=== PATIENT | female | born 1950 | race Caucasian/White ===

== ENCOUNTER 2016-08-22 11:04 | Inpatient (IN) | payer OTHER, MEDICAID ==
[2016-08-22] MEDS ORDERED: NS 0.9% 1000 ML* 1,000 ML IV ONE (11:33)
[2016-08-22] MEDS ORDERED: Diltiazem IV* 5 MG/ML 5 ML VIAL (for loading dose/IV Push) (25 MG) IV SLOW PU ONE (11:35)
[2016-08-22] MEDS ORDERED: Diltiazem IV VIAL* 125 MG in D5W 100 ML BAG* 100 ML IV ONE (11:35)
[2016-08-22 11:45] LABS: Hematocrit 34 % (35-47); Hemoglobin 10.7 g/dl (12.0-16.0); Mean Corpuscular HGB Conc 32 g/dl (31-36); Mean Corpuscular Hemoglobin 29 pg (27-31); Mean Corpuscular Volume 90 fL (80-97); Mean Platelet Volume 9 um3 (7.4-10.4); Red Blood Count 3.72 10^6/ul (4.0-5.4); Red Cell Distribution Width 15 % (10.5-15); White Blood Count 12.6 10^3/ul (3.5-10.8)
--- NOTE | 2016-08-22 11:56 | RAD ---
INDICATION: Fatigue. COMPARISON: Comparison is made with a prior chest x-ray study from May 12, 2015. TECHNIQUE: A portable view of the chest was obtained. FINDINGS: The patient is status post anatomy. The heart appears mildly enlarged and unchanged. The lungs are underinflated. There is elevation of the left hemidiaphragm. The lungs appear grossly clear. No pleural effusion is seen. IMPRESSION: ELEVATED LEFT HEMIDIAPHRAGM, NO EVIDENCE FOR ACUTE FINDING.
[2016-08-22 11:57] LABS: Albumin 3.3 g/dL (3.2-5.2); BUN/Creatinine Ratio 21.3 (8-20); Calcium 8.5 mg/dL (8.6-10.3); EGFR African American 81.9 (>60); EGFR Non-African American 63.7 (>60); Magnesium 1.8 mg/dL (1.9-2.7); Potassium 4.4 mmol/L (3.5-5.0); Total Bilirubin 0.5 mg/dL (0.2-1.0); Total Protein 7.3 g/dL (6.4-8.9)
[2016-08-22 11:59] LABS: Troponin I 0.01 ng/mL (<0.04)
[2016-08-22 12:33] LABS: TSH (Thyroid Stimulating Horm) 1.06 mcIU/mL (0.34-5.60)
[2016-08-22] MEDS ORDERED: Phytonadione INJ (Adult)* 10 MG/ML 1 ML AMP SUBCUT ONE (12:39)
[2016-08-22] MEDS ORDERED: HYDROcodone/ACETAMIN 5-325 MG* 1 TAB PO PRN (13:33)
[2016-08-22] MEDS ORDERED: Diltiazem CD CAP* 240 MG PO ONE (13:40)
--- NOTE | 2016-08-22 14:02 | ED ---
Victor Hugo Love SooYoung, scribed for Dudley Hernandes MD on 08/22/16 at 1137 . GI/ HPI - HPI Summary HPI Summary: A 65 y/o F presents to ED with blood in her ostomy bag which she noticed a small amount last night, and saw a lot more this morning. Associated sx: racing heart beat this AM, epigastric abd pain, lower back pain, general malaise, lightheadedness and dizziness onset yesterday. She notes having some rhinorrhea due to her oxygen treatments, and she noticed blood in her sputum yesterday. - History of Current Complaint Chief Complaint: EDGIBleed Time Seen by Provider: 08/22/16 11:21 Stated Complaint: BLOOD IN COLOSTOMY BAG Hx Obtained From: Patient Onset/Duration: Started Hours Ago, Started Days Ago, Still Present Timing: Constant Severity: Moderate Pain Intensity: 6 - out of 10 Location of Pain: Diffuse - lower back, epigastric abd Associated Signs and Symptoms: Positive: Back Pain, Dizziness, Lightheadedness, Abdominal Pain, Other: - pos: general malaise - Additional Pertinent History Primary Care Physician: CARROLL - Allergy/Home Medications Allergies/Adverse Reactions: Allergies Allergy/AdvReac Type Severity Reaction Status Date / Time Shellfish Allergy Allergy Severe Hives Verified 08/22/16 12:33 Iodinated Contrast Media Allergy Intermediate Hives Verified 08/22/16 12:33 [IV CONTRAST DYE] Celecoxib [From Celebrex] Allergy Hives Verified 08/22/16 12:33 BEES Allergy Severe Rash Uncoded 08/22/16 12:33 Home Medications: Home Medications Docusate Sodium [Colace] 100 mg PO 08/22/16 [History] Ezetimibe TAB* [Zetia TAB*] 10 mg PO DAILY 08/22/16 [History Confirmed 08/22/16] Potassium Chlor TAB* [Klor Con ER TAB*] 20 meq PO BID 08/22/16 [History Confirmed 08/22/16] Pregabalin [Lyrica] 50 mg PO 08/22/16 [History] PMH/Surg Hx/FS Hx/Imm Hx Previously Healthy: No Endocrine/Hematology History: Reports: Hx Anticoagulant Therapy, Hx Thyroid Disease Denies: Hx Diabetes Cardiovascular History: Reports: Hx Cardiac Arrest, Hx Congestive Heart Failure , Hx Coronary Artery Disease, Hx Deep Vein Thrombosis, Hx Hypercholesterolemia, Hx Hypertension, Hx Peripheral Vascular Disease, Hx Valvular Heart Disease, Other Cardiovascular Problems/Disorders - CAD, DVT Denies: Hx Pacemaker/ICD Respiratory History: Reports: Hx Asthma, Hx Chronic Obstructive Pulmonary Disease (COPD), Hx Pneumonia, Hx Pulmonary Embolism, Hx Sleep Apnea, Other Respiratory Problems/Disorders - home o2 GI History: Reports: Hx Diverticulosis, Hx Gall Bladder Disease, Hx Gastroesophageal Reflux Disease, Hx Hiatal Hernia, Other GI Disorders - DIVERTICULITIS History: Reports: Hx Kidney Stones Denies: Hx Dialysis, Hx Renal Disease, Other Problems/Disorders Musculoskeletal History: Reports: Hx Arthritis - legs and shoulders, Hx Back Problems, Hx Bursitis, Hx Scoliosis, Other Musculoskeletal History - Left hip replacement Sensory History: Reports: Hx Contacts or Glasses Denies: Hx Deafness, Hx Hearing Aid Opthamlomology History: Reports: Hx Contacts or Glasses Neurological History: Denies: Hx Dementia, Hx Developmental Delay, Hx Headaches, Hx Migraine, Hx Nerve Disease, Hx Seizures, Hx Spinal Cord Injury, Hx Transient Ischemic Attacks (TIA), Other Neuro Impairments/Disorders Psychiatric History: Reports: Hx Anxiety, Hx Depression Denies: Hx Substance Abuse - Surgical History Surgery Procedure, Year, and Place: TUBAL LIGATION 1979, [facility] [place] , CHOLECYSTECTOMY [facility] [place], 2008, KIDNEY STONES REMOVED 1998, [facility] [place], TRIPLE BYPASS, HEART VALVE REPLACEMENT 2010, [facility], LEFT HIP REPLACED, 2009, [facility]. TONSILECTOMY A CHILD Hx Anesthesia Reactions: No - Immunization History Date of Tetanus Vaccine: Up to date Date of Influenza Vaccine: Fall 2011 Infectious Disease History: Reports: Hx Shingles Denies: Hx Hepatitis, Hx Human Immunodeficiency Virus (HIV), Traveled Outside the [place] in Last 30 Days - Family History Known Family History: Positive: Other - neg: anaesthesia reaction - Social History Occupation: Retired Lives: Alone Alcohol Use: Rare Hx Substance Use: No Substance Use Type: Reports: None Hx Tobacco Use: Yes Smoking Status (MU): Former Smoker Type: Cigarettes Have You Smoked in the Last Year: No Review of Systems Positive: Palpitations Positive: Abdominal Pain Positive: other - POS: BLOOD IN OSTOMY BAG Positive: Other - pos: lower back pain Neurological: Other - pos: dizziness/lightheadedness, general malaise All Other Systems Reviewed And Are Negative: Yes Physical Exam Triage Information Reviewed: Yes Vital Signs On Initial Exam: Initial Vitals Temp Pulse Resp BP Pulse Ox 97.8 F 120 20 98/79 98 08/22/16 11:07 08/22/16 11:07 08/22/16 11:07 08/22/16 11:07 08/22/16 11:07 Vital Signs Reviewed: Yes Appearance: Positive: Well-Appearing, No Pain Distress, Obese Skin: Positive: Warm, Skin Color Reflects Adequate Perfusion, Dry Head/Face: Positive: Normal Head/Face Inspection Eyes: Positive: Normal ENT: Positive: Normal ENT inspection Neck: Positive: Supple, Nontender Respiratory/Lung Sounds: Positive: Breath Sounds Present, Other - POS: UPPER AIRWAY SOUNDS Cardiovascular: Positive: IRR, Tachycardia Abdomen Description: Positive: Nontender, Soft, Other: - POS: BLOOD IN OSTOMY BAG Musculoskeletal: Positive: Edema Left - PITTING PEDAL EDEMA, Edema Right - PITTING PEDAL EDEMA Neurological: Positive: Normal Psychiatric: Positive: Normal, Affect/Mood Appropriate Diagnostics - Vital Signs Vital Signs Temp Pulse Resp BP Pulse Ox 08/22/16 11:07 97.8 F 120 20 98/79 98 - Laboratory Lab Results: Lab Results 08/22/16 08/22/16 08/22/16 Range/Units 11:28 11:28 11:28 WBC 12.6 H (3.5-10.8) 10^3/ul RBC 3.72 L (4.0-5.4) 10^6/ul Hgb 10.7 L (12.0-16.0) g/dl Hct 34 L (35-47) % MCV 90 (80-97) fL MCH 29 (27-31) pg MCHC 32 (31-36) g/dl RDW 15 (10.5-15) % Plt Count 189 (150-450) 10^3/ul MPV 9 (7.4-10.4) um3 Neut % (Auto) 75.6 (38-83) % Lymph % (Auto) 15.2 L (25-47) % [place] % (Auto) 6.2 (1-9) % Eos % (Auto) 2.0 (0-6) % Baso % (Auto) 1.0 (0-2) % Absolute Neuts (auto) 9.5 H (1.5-7.7) 10^3/ul Absolute Lymphs (auto) 1.9 (1.0-4.8) 10^3/ul Absolute Monos (auto) 0.8 (0-0.8) 10^3/ul Absolute Eos (auto) 0.3 (0-0.6) 10^3/ul Absolute Basos (auto) 0.1 (0-0.2) 10^3/ul Absolute Nucleated RBC 0 10^3/ul Nucleated RBC % 0 INR (Anticoag Therapy) 6.73 H* (0.89-1.11) Sodium 134 (133-145) mmol/L Potassium 4.4 (3.5-5.0) mmol/L Chloride 104 (101-111) mmol/L Carbon Dioxide 26 (22-32) mmol/L Anion Gap 4 (2-11) mmol/L BUN 19 (6-24) mg/dL Creatinine 0.89 (0.51-0.95) mg/dL Est GFR ( Amer) 81.9 (>60) Est GFR (Non-Af Amer) 63.7 (>60) BUN/Creatinine Ratio 21.3 H (8-20) Glucose 115 H (70-100) mg/dL Lactic Acid (0.5-2.0) mmol/L Calcium 8.5 L (8.6-10.3) mg/dL Magnesium 1.8 L (1.9-2.7) mg/dL Total Bilirubin 0.50 (0.2-1.0) mg/dL AST 14 (13-39) U/L ALT 17 (7-52) U/L Alkaline Phosphatase 70 (34-104) U/L Troponin I 0.01 (<0.04) ng/mL B-Natriuretic Peptide ( - 100) pg/mL Total Protein 7.3 (6.4-8.9) g/dL Albumin 3.3 (3.2-5.2) g/dL Globulin 4.0 (2-4) g/dL Albumin/Globulin Ratio 0.8 L (1-3) TSH 1.06 (0.34-5.60) mcIU/mL 08/22/16 08/22/16 Range/Units 11:28 11:28 WBC (3.5-10.8) 10^3/ul RBC (4.0-5.4) 10^6/ul Hgb (12.0-16.0) g/dl Hct (35-47) % MCV (80-97) fL MCH (27-31) pg MCHC (31-36) g/dl RDW (10.5-15) % Plt Count (150-450) 10^3/ul MPV (7.4-10.4) um3 Neut % (Auto) (38-83) % Lymph % (Auto) (25-47) % [place] % (Auto) (1-9) % Eos % (Auto) (0-6) % Baso % (Auto) (0-2) % Absolute Neuts (auto) (1.5-7.7) 10^3/ul Absolute Lymphs (auto) (1.0-4.8) 10^3/ul Absolute Monos (auto) (0-0.8) 10^3/ul Absolute Eos (auto) (0-0.6) 10^3/ul Absolute Basos (auto) (0-0.2) 10^3/ul Absolute Nucleated RBC 10^3/ul Nucleated RBC % INR (Anticoag Therapy) (0.89-1.11) Sodium (133-145) mmol/L Potassium (3.5-5.0) mmol/L Chloride (101-111) mmol/L Carbon Dioxide (22-32) mmol/L Anion Gap (2-11) mmol/L BUN (6-24) mg/dL Creatinine (0.51-0.95) mg/dL Est GFR ( Amer) (>60) Est GFR (Non-Af Amer) (>60) BUN/Creatinine Ratio (8-20) Glucose (70-100) mg/dL Lactic Acid 1.0 (0.5-2.0) mmol/L Calcium (8.6-10.3) mg/dL Magnesium (1.9-2.7) mg/dL Total Bilirubin (0.2-1.0) mg/dL AST (13-39) U/L ALT (7-52) U/L Alkaline Phosphatase (34-104) U/L Troponin I (<0.04) ng/mL B-Natriuretic Peptide 319 H ( - 100) pg/mL Total Protein (6.4-8.9) g/dL Albumin (3.2-5.2) g/dL Globulin (2-4) g/dL Albumin/Globulin Ratio (1-3) TSH (0.34-5.60) mcIU/mL Result Diagrams: 08/22/16 11:28 08/22/16 11:28 Lab Statement: Any lab studies that have been ordered have been reviewed, and results considered in the medical decision making process. - Radiology CXR Xray Interpretation: No Acute Changes - IMPRESSION: Elevated L hemidiaphragm. No evidence for acute finding. Radiology Interpretation Completed By: Radiologist - EKG 1 EKG Rhythm: Atrial Fibrillation - with RVR Ectopy: PVCs GIGU Course/Dx - Course Assessment/Plan: Ms. Ziegler came in C/O lightheaded, fast heart rate and having noticed blood in her ostomy bag. Her INR was high, she had dropped her H /H a bit and was found to be in A-Fib with a rapid response. She was slowed with cardizem when fluids alone did not work. She was given Vit K and the hospitalists were contacted for admission. - Diagnoses Provider Diagnoses: Atrial fibrillation with rapid ventricular response, GI bleed - Physician Notifications Discussed Care Of Patient With: Dr. Ridley, hospitalist Time Discussed With Above Provider: 12:38 Instructed by Provider To: MD Will See In ED - Critical Care Time Critical Care Time: 30-74 min Discharge - Discharge Plan Condition: Stable Disposition: ADMITTED TO [facility] documentation as recorded by the Victor Hugo nowak SooYoung accurately reflects the service I personally performed and the decisions made by me, Dudley Hernandes MD.
[2016-08-22] MEDS ORDERED: Magnesium Sulfate 2 GM IV* 2 GM/50 ML BAG IVPB ONE (14:37)
[2016-08-22] MEDS ORDERED: NS 0.9% 1000 ML* 1,000 ML IV SCH (14:45)
[2016-08-22] MEDS: Pantoprazole IV* 40 MG IV SCH (15:01)
[2016-08-22 15:29] LABS: Comments Flag Yes; Hematocrit 31 % (35-47); Hemoglobin 9.7 g/dl (12.0-16.0)
[2016-08-22] MEDS: Digoxin TAB* 0.25 MG PO SCH (16:55)
[2016-08-22] MEDS ORDERED: Metoprolol Tartrate TAB* 25 MG PO ONE (19:15)
[2016-08-22] MEDS: Mometasone 220 MCG MDI INH SCH (19:30)
[2016-08-22] MEDS ORDERED: Metoprolol Tartrate TAB* 50 mg PO SCH (21:00)
[2016-08-22 21:32] LABS: Hematocrit 30 % (35-47); Hemoglobin 9.3 g/dl (12.0-16.0)
[2016-08-22] MEDS: traZODone TAB* 50 MG TAB PO SCH (22:02)
--- NOTE | 2016-08-22 23:04 | HP ---
HISTORY AND PHYSICAL: DATE OF ADMISSION: 08/22/16 PROVIDER: Amanda Lara NP. ATTENDING PHYSICIAN: Dr. Schafer* (report dictated by Amanda Lara NP). PRIMARY CARE PROVIDER: Dr. Simons. CHIEF COMPLAINT: Blood in colostomy bag. HISTORY OF PRESENT ILLNESS: Ms. Ziegler is a 65-year-old female with a complex past medical history with paroxysmal atrial fibrillation and history of pulmonary embolism, on Coumadin therapy and is status post colostomy approximately 2 years ago for bowel obstruction, who presented to the emergency department today with report of noted blood in her colostomy bag this morning. On admission, her labs reveal an INR of 6.73 and a hemoglobin and hematocrit of 10.7/34. Ms. Ziegler reports that yesterday she noted she had streaks of blood in her stool in her colotomy bag, then this morning she awoke and noted her colostomy bag had leaked and there was "blood all over" noted as dark red blood. She reports that she cleaned herself up and placed a new bag on and called the ambulance who brought her to the emergency department for further evaluation. She reports that she has had some dizziness today when changing positions, mostly to a standing position. She denies any syncopal episodes. She denies abdominal pain. No nausea or vomiting. She does report she felt that she had a "stomachache" yesterday, but that has resolved. No recent illnesses. She denies any fevers or chills. The patient denies any changes in her diet and reports that she has been taking her medications as prescribed. As well, on presentation, she presents with rapid AFib with a heart rate of 149. She reports that she did not take her prescribed medications this morning prior to coming to the emergency department. On evaluation, the patient reports that she is "feeling pretty well," reporting only some mild dizziness when standing. PAST MEDICAL HISTORY: 1. Paroxysmal atrial fibrillation. 2. History of pulmonary embolism. 3. Atrial fibrillation, on Coumadin therapy. 4. Status post resection with colostomy secondary to bowel obstruction in April of 2015. 5. Status post porcine aortic valve replacement. 6. Coronary artery bypass grafting. 7. Hypothyroidism. 8. Hyperlipidemia. 9. Hypertension. 10. COPD, on home oxygen of 2.5 L 24x7. 11. Diastolic congestive heart failure with a preserved EF. 12. Peripheral vascular disease. 13. Morbid obesity. 14. GERD. 15. Dyslipidemia. 16. Status post cholecystectomy. 17. Status post ventral hernia repair. 18. Status post appendectomy. 19. Tubal ligation. HOME MEDICATIONS: 1. Zetia 10 mg p.o. daily. 2. Potassium chloride 20 mEq p.o. b.i.d. 3. Cardizem 240 mg p.o. daily. 4. Aspirin EC low dose 81 mg p.o. daily. 5. Albuterol 2 puffs INH q.4h. p.r.n. 6. Xanax 0.25 mg p.o. q.6h. p.r.n. 7. [place] 5/325 mg one tab p.o. q.6h. p.r.n. 8. Flovent HFA 44 mcg 2 puffs INH b.i.d. 9. EpiPen 0.3 mg IM, see instructions p.r.n. 10. Digoxin 250 mcg p.o. at 1700. 11. Lipitor 80 mg p.o. daily. 12. Metoprolol tartrate 50 mg p.o. b.i.d. 13. Lisinopril 2.5 mg p.o. daily. 14. Synthroid 200 mcg p.o. daily. 15. Torsemide 240 mg p.o. daily. 16. Spiriva one cap INH daily. 17. Zoloft 200 mg p.o. daily. 18. Omeprazole 40 mg p.o. daily. 19. Trazodone 50 mg p.o. at bedtime. 20. Coumadin 6 mg p.o. at 1700. 21. Lyrica 50 mg p.o. daily. ALLERGIES: 1. SHELLFISH - hives. 2. IV CONTRAST - hives. 3. CELEBREX - hives. 4. BEES - rash. FAMILY HISTORY: Mother had a history of coronary artery disease. The patient' s brother secondary to an LA at age 27. She reports her son has type 2 diabetes. SOCIAL HISTORY: The patient is a former smoker reporting she quit 2 years ago, rare alcohol use. Denies recreational drug use. The patient lives with her son , Nehemiah, who is her healthcare proxy. The patient has 5 grown children, one . REVIEW OF SYSTEMS: A 14-point review of systems was performed. All the pertinent positives and negatives are mentioned in the history of present illness. All the remaining systems are negative. PHYSICAL EXAMINATION GENERAL APPEARANCE: Alert and oriented x3, chronically ill-appearing female, obese, in no acute distress. VITAL SIGNS: Temperature 97.8, heart rate 98, respirations 16, O2 sat 98% on 2 L nasal cannula, blood pressure 111/70. HEENT: Head is normocephalic, atraumatic. Pupils are equal and reactive to light. Oropharynx is clear. Moist mucous membranes. Good dentition. NECK: Supple. RESPIRATORY: Clear to auscultation bilaterally. Good aeration throughout. No respiratory distress. No accessory muscle use. CARDIAC: Irregularly irregular. No murmur noted. ABDOMEN: Obese, distended, soft, nontender. Normal bowel sounds x4. There is noted a left lower quad colostomy with noted red and dark red fluid noted to be blood. Small amounts of stool noted in bag, mostly noted to be blood, approximately 50 to 75 mL noted. Stoma appears pink. EXTREMITIES: Trace lower extremity edema to bilateral feet. MUSCULOSKELETAL: No clubbing or cyanosis noted. Full range of motion in all extremities. Strength is 5/5 throughout. NEUROLOGIC: Cranial nerves II through XII are intact. Moves all extremities equally. Sensation in the lower extremities intact to light touch. SKIN: No rashes, lesions or open wounds noted. PSYCH: Alert and oriented x3, appropriate to situation. LABORATORY DATA AND DIAGNOSTIC STUDIES: Sodium 134, potassium 4.4, chloride 104, CO2 26, anion gap 4, BUN 19, creatinine 0.89, glucose 115, lactic acid 1.0 , calcium 8.5, magnesium 1.8, total bilirubin 0.50, AST 14, ALT 17, alkaline phosphatase 78. Troponin 0.01. BNP is 319. Total protein is 7.3, albumin 3.3, TSH 1.06, INR 6.73. WBC is 12.6, RBC 3.72, Hgb 10.7, HCT 34, MCV 90, MCH 29, MCHC 32, RDW 15, platelet count 189. Chest X-ray: Impression: Elevated left hemidiaphragm, no evidence for acute finding. EKG: Atrial fibrillation with a rate of 127. ASSESSMENT AND PLAN: Ms. Ziegler is a 65-year-old female with a complex past medical history including paroxysmal atrial fibrillation, history of pulmonary embolism, who is currently anticoagulated with Coumadin therapy, who presents with report of noted blood in her colostomy, noted to have an INR of 6.7. 1. Gastrointestinal bleed. The patient is stable. It appears her baseline hemoglobin is around 12 or 13, and today on evaluation it is 10.7. We will check another hemoglobin now and trend H and H's. Protonix 40 mg IV q. 24h. 2. Large-bore IVs. Obtain orthostatic vital signs. The patient received a liter of normal saline in the emergency department. We will monitor colostomy output strictly. The patient was given 5 mg of vitamin K in the emergency department. We will recheck INR this evening and in the morning. I spoke with copy chief, Dr. Greco, who will consult on the patient at this time. The plan will be to admit the patient, monitor closely, reverse the INR and see if the patient stops bleeding. I am not sure at this point if she would require scoping at this time unless she became unstable. I also spoke with surgeon, Dr. Jackson, who is the patient's general surgeon, who is aware of the patient being hospitalized. She does not require a surgical consult at this time, but if she would become stable, I will contact Dr. Jackson. 3. Atrial fibrillation with rapid ventricular response. The patient was started on a Cardizem drip in the emergency department. She currently has a heart rate between 90 and 110. Plan to restart the patient's home medications as she did not take these this morning and turn off the Cardizem drip. Continue Cardizem, metoprolol and digoxin with hold parameters. 4. Hypothyroidism. TSH within normal limits. Continue Synthroid. 5. History of pulmonary embolism, unclear what year she was diagnosed, possibly 2010. We do have a CTA from 2013 that shows no evidence of pulmonary embolism. We will have to obtain records from PCP. 6. Chronic obstructive pulmonary disease, stable, not an acute issue. The patient continues on her home oxygen requirements of 2.5 L. Continue home inhalers. 7. Coronary artery disease, asymptomatic. We will plan to hold the patient's aspirin in the setting of acute GI bleed. We will continue beta-bao and statin. 8. Hypertension, stable. We will hold lisinopril in the setting of GI bleed, also continuing rate controlling agents to prevent dropping the patient's blood pressure. Plan to hold torsemide. 9. History of diastolic congestive heart failure with an ejection fraction of 50% to 55% in 2015. She is not in acute exacerbation. Hold torsemide at this time. 10. Depression/anxiety, stable. Continue Zoloft. 11. Chronic pain. The patient reports chronic back pain. Continue [place] p.r.n. 12. History of aortic stenosis, status post bioprosthetic aortic valve. 13. DVT prophylaxis. SCDs in the setting of GI bleed. 14. Code status. Full code. The patient's son, Nehemiah, is the healthcare proxy. TIME SPENT: Approximately 75 minutes was spent on this admission. This case was discussed with attending physician, Dr. Schafer, who agrees with the plan of care. AMANDA LARA NP CC: Dr. Simons* [id number]/CPS #: [id number] SERENA
[2016-08-23 02:23] LABS: Hematocrit 29 % (35-47); Hemoglobin 8.9 g/dl (12.0-16.0)
[2016-08-23] MEDS: Levothyroxine TAB* 100 MCG TAB PO SCH (05:25)
[2016-08-23 06:02] LABS: Hematocrit 28 % (35-47); Hemoglobin 9.1 g/dl (12.0-16.0); Mean Corpuscular HGB Conc 32 g/dl (31-36); Mean Corpuscular Hemoglobin 29 pg (27-31); Mean Corpuscular Volume 91 fL (80-97); Mean Platelet Volume 9 um3 (7.4-10.4); Red Blood Count 3.12 10^6/ul (4.0-5.4); Red Cell Distribution Width 15 % (10.5-15); White Blood Count 10.3 10^3/ul (3.5-10.8)
[2016-08-23 06:16] LABS: BUN/Creatinine Ratio 19.7 (8-20); Calcium 7.9 mg/dL (8.6-10.3); EGFR African American 106.3 (>60); EGFR Non-African American 82.6 (>60); Magnesium 2.1 mg/dL (1.9-2.7); Potassium 4.2 mmol/L (3.5-5.0)
--- NOTE | 2016-08-23 07:14 | PN ---
Subjective Date of Service: 08/23/16 Interval History: pt reports she feels "much better today". Reports less blood noted from colostomy this afternoon but did note blood upon waking - reports dizziness has resolved. Objective Active Medications: Hydrocodone Bitart/Acetaminophen ([place] 5-325 Tab*) 1 tab PO Q6H PRN PRN Reason: PAIN Atorvastatin Calcium (Lipitor*) 80 mg PO DAILY [facility] Device (Tiotropium Inhaler Device*) 0 each .SEE ORDER ONCE ONE Stop: 08/23/16 09:01 Digoxin (Lanoxin Tab*) 0.25 mg PO 1700 [facility] Last Admin: 08/22/16 16:55 Dose: 0.25 mg Diltiazem HCl (Cardizem Cd Cap*) 240 mg PO DAILY [facility] Ezetimibe (Zetia Tab*) 10 mg PO DAILY [facility] Levothyroxine Sodium (Synthroid Tab*) 200 mcg PO DAILY@0600 [facility] Last Admin: 08/23/16 05:25 Dose: 200 mcg Metoprolol Tartrate (Lopressor Tab*) 50 mg PO Q12HR [facility] Last Admin: 08/22/16 22:01 Dose: 50 mg Mometasone Furoate (Asmanex 220 Mcg Mdi *) 1 puff INH BEDTIME [facility] Last Admin: 08/22/16 19:30 Dose: 1 puff Pantoprazole Sodium (Protonix Iv*) 40 mg IV Q24H [facility] Last Admin: 08/22/16 15:01 Dose: 40 mg Sertraline HCl (Zoloft*) 200 mg PO DAILY [facility] Tiotropium [place] (Spiriva Cap.Inh*) 1 cap INH DAILY [facility] Trazodone HCl (Desyrel Tab*) 50 mg PO BEDTIME [facility] Last Admin: 08/22/16 22:02 Dose: 50 mg Vital Signs 08/22/16 08/22/16 08/22/16 16:33 16:34 16:35 Temperature Pulse Rate Respiratory Rate Blood Pressure 103/84 121/77 134/105 (mmHg) O2 Sat by Pulse Oximetry 08/22/16 08/22/16 08/22/16 16:55 19:33 20:07 Temperature 97.5 F Pulse Rate 100 69 82 Respiratory 16 16 Rate Blood Pressure 132/65 (mmHg) O2 Sat by Pulse 98 100 Oximetry 08/23/16 08/23/16 00:03 03:18 Temperature 97.6 F 97.3 F Pulse Rate 57 70 Respiratory 16 16 Rate Blood Pressure 115/75 106/54 (mmHg) O2 Sat by Pulse 100 100 Oximetry Oxygen Devices in Use Now: Nasal Cannula - 2 1/2 L NC Appearance: 65 yo female sitting up in bed A+O x3 in NAD. Eyes: No Scleral Icterus, PERRLA Ears/Nose/Mouth/Throat: NL Teeth, Lips, Gums Neck: NL Appearance and Movements; NL JVP Respiratory: Symmetrical Chest Expansion and Respiratory Effort, Clear to Auscultation Cardiovascular: NL Sounds; No Murmurs; No JVD, - - irregularly irregular, 1+ LE edema Abdominal: NL Sounds; No Tenderness; No Distention, - Extremities: No Clubbing, Cyanosis Skin: No Nodules or Sclerosis Neurological: Alert and Oriented x 3, NL Sensation, NL Muscle Strength and Tone Lines/Tubes/Other Access: Clean, Dry and Intact Peripheral IV Nutrition: Taking PO's Result Diagrams: 08/23/16 12:10 08/23/16 05:33 Additional Lab and Data: Lab Results 08/22/16 08/22/16 08/22/16 Range/Units 11:28 11:28 11:28 WBC 12.6 H (3.5-10.8) 10^3/ul RBC 3.72 L (4.0-5.4) 10^6/ul Hgb 10.7 L (12.0-16.0) g/dl Hct 34 L (35-47) % MCV 90 (80-97) fL MCH 29 (27-31) pg MCHC 32 (31-36) g/dl RDW 15 (10.5-15) % Plt Count 189 (150-450) 10^3/ul MPV 9 (7.4-10.4) um3 Neut % (Auto) 75.6 (38-83) % Lymph % (Auto) 15.2 L (25-47) % [place] % (Auto) 6.2 (1-9) % Eos % (Auto) 2.0 (0-6) % Baso % (Auto) 1.0 (0-2) % Absolute Neuts (auto) 9.5 H (1.5-7.7) 10^3/ul Absolute Lymphs (auto) 1.9 (1.0-4.8) 10^3/ul Absolute Monos (auto) 0.8 (0-0.8) 10^3/ul Absolute Eos (auto) 0.3 (0-0.6) 10^3/ul Absolute Basos (auto) 0.1 (0-0.2) 10^3/ul Absolute Nucleated RBC 0 10^3/ul Nucleated RBC % 0 INR (Anticoag Therapy) 6.73 H* (0.89-1.11) Sodium 134 (133-145) mmol/L Potassium 4.4 (3.5-5.0) mmol/L Chloride 104 (101-111) mmol/L Carbon Dioxide 26 (22-32) mmol/L Anion Gap 4 (2-11) mmol/L BUN 19 (6-24) mg/dL Creatinine 0.89 (0.51-0.95) mg/dL Est GFR ( Amer) 81.9 (>60) Est GFR (Non-Af Amer) 63.7 (>60) BUN/Creatinine Ratio 21.3 H (8-20) Glucose 115 H (70-100) mg/dL Lactic Acid (0.5-2.0) mmol/L Calcium 8.5 L (8.6-10.3) mg/dL Magnesium 1.8 L (1.9-2.7) mg/dL Total Bilirubin 0.50 (0.2-1.0) mg/dL AST 14 (13-39) U/L ALT 17 (7-52) U/L Alkaline Phosphatase 70 (34-104) U/L Troponin I 0.01 (<0.04) ng/mL B-Natriuretic Peptide ( - 100) pg/mL Total Protein 7.3 (6.4-8.9) g/dL Albumin 3.3 (3.2-5.2) g/dL Globulin 4.0 (2-4) g/dL Albumin/Globulin Ratio 0.8 L (1-3) TSH 1.06 (0.34-5.60) mcIU/mL 08/22/16 08/22/16 Range/Units 11:28 11:28 WBC (3.5-10.8) 10^3/ul RBC (4.0-5.4) 10^6/ul Hgb (12.0-16.0) g/dl Hct (35-47) % MCV (80-97) fL MCH (27-31) pg MCHC (31-36) g/dl RDW (10.5-15) % Plt Count (150-450) 10^3/ul MPV (7.4-10.4) um3 Neut % (Auto) (38-83) % Lymph % (Auto) (25-47) % [place] % (Auto) (1-9) % Eos % (Auto) (0-6) % Baso % (Auto) (0-2) % Absolute Neuts (auto) (1.5-7.7) 10^3/ul Absolute Lymphs (auto) (1.0-4.8) 10^3/ul Absolute Monos (auto) (0-0.8) 10^3/ul Absolute Eos (auto) (0-0.6) 10^3/ul Absolute Basos (auto) (0-0.2) 10^3/ul Absolute Nucleated RBC 10^3/ul Nucleated RBC % INR (Anticoag Therapy) (0.89-1.11) Sodium (133-145) mmol/L Potassium (3.5-5.0) mmol/L Chloride (101-111) mmol/L Carbon Dioxide (22-32) mmol/L Anion Gap (2-11) mmol/L BUN (6-24) mg/dL Creatinine (0.51-0.95) mg/dL Est GFR ( Amer) (>60) Est GFR (Non-Af Amer) (>60) BUN/Creatinine Ratio (8-20) Glucose (70-100) mg/dL Lactic Acid 1.0 (0.5-2.0) mmol/L Calcium (8.6-10.3) mg/dL Magnesium (1.9-2.7) mg/dL Total Bilirubin (0.2-1.0) mg/dL AST (13-39) U/L ALT (7-52) U/L Alkaline Phosphatase (34-104) U/L Troponin I (<0.04) ng/mL B-Natriuretic Peptide 319 H ( - 100) pg/mL Total Protein (6.4-8.9) g/dL Albumin (3.2-5.2) g/dL Globulin (2-4) g/dL Albumin/Globulin Ratio (1-3) TSH (0.34-5.60) mcIU/mL Microbiology and Other Data: Microbiology 08/22/16 14:30 Nasal Screen MRSA (PCR)([facility]) - Final Nasal Mrsa Positive Assess/Plan/Problems-Billing Assessment: 65 yo female with PMH paroxysmal afib on coumadin, hx of distant PE who present with c/o blood per colostomy who was found to have an INR 6.7. - Patient Problems (1) GI bleed Comment: - appears lower GI bleed in the setting of supratherapuetic INR. HH stable. Plan to hold coumadin for a few weeks and PCP will need to address restarting. - GI to consult. - continue protonix (2) Atrial fibrillation with RVR Comment: - now rate controlled. - Continue Cardizem, Digoxin and metoprolol - Hold coumadin (3) Subtherapeutic anticoagulation SNOMED Code(s): 29900218 Comment: INR 3, down from 6.7 (4) Chronic pain Comment: continue Paron (5) COPD (chronic obstructive pulmonary disease) Comment: - Stable. - Continue Spiriva, Dulera and oxygen (on home 2L [place]). (6) Diastolic CHF Comment: - asymptomatic. (7) HTN (hypertension) Comment: SBP remains 120s, continue cardizem and metoprolol. (8) Hypothyroidism (acquired) Comment: Continue levothyroxine. (9) S/P aortic valve replacement with bioprosthetic valve Comment: - porcine valve (10) Hx of pulmonary embolus Comment: - distant hx, per pt she is unclear of her hx of PE but does report very distant hx of DVT- looking back at CTA 2010 no noted PE (11) DVT prophylaxis Comment: SCDs (12) Full code status Comment: Full Code. Status and Disposition: inpatient with GI bleed. Home when medically stable most likely tomorrow
[2016-08-23] MEDS ORDERED: Omeprazole CAP* 20 MG PO SCH (07:30)
[2016-08-23] MEDS ORDERED: Spiriva Inhaler DEVICE* 1 EACH DEVICE ONE (09:00)
[2016-08-23] MEDS: Tiotropium CAP.INH* CAP.INH/18 MCG INH SCH (10:06)
[2016-08-23] MEDS: Ezetimibe TAB* 10 MG PO SCH (10:07)
[2016-08-23] MEDS: Metoprolol Tartrate TAB* 50 mg PO SCH ×2 (10:07→20:49)
[2016-08-23] MEDS: Atorvastatin* 80 MG TAB PO SCH (10:07)
[2016-08-23] MEDS: Sertraline* 100 MG TAB PO SCH (10:07)
[2016-08-23] MEDS: Diltiazem CD CAP* 240 MG PO SCH (10:38)
[2016-08-23 12:23] LABS: Hematocrit 29 % (35-47); Hemoglobin 9.2 g/dl (12.0-16.0)
[2016-08-23] MEDS: Pantoprazole IV* 40 MG IV SCH (13:35)
--- NOTE | 2016-08-23 14:40 | CONS ---
CONSULTATION REPORT: DATE OF CONSULT: 08/23/16 REQUESTING PROVIDER: Melinda Garrison NP INDICATION: GI bleeding. NARRATIVE: Ms. Ziegler is a pleasant 65-year-old female with a history of atrial fibrillation; PE; aortic valve replacement; coronary artery disease; hypertension; hyperlipidemia; hypothyroid; COPD, requiring home O2; congestive heart failure; peripheral vascular disease; obesity; GERD, who presents with abdominal pain and blood per ostomy yesterday. The patient states she had a large amount of dark stool. She did have a stomach ache in the hours beforehand. She has never seen this amount of dark blood in her ostomy before. She currently is feeling better. She was admitted to the hospital partly due to an INR of 6.73. Her bleeding has definitely decreased. She is feeling fine. She is hungry. She has a history of some sort of colonic reason to have a colostomy in the past. She had a colonoscopy in June 2015 after a diverting colostomy secondary to colonic obstruction. The official reason for the obstruction to the best of my knowledge was never found. She had a colonoscopy in June of last year, which showed narrowed, contorted spots of the distal colon, no diverticulosis, ileocecal polyps in mid to proximal right colon, erythema with chronic irritation. Again, she is feeling much improved at this time. PAST MEDICAL HISTORY: Please see the HPI. PAST SURGICAL HISTORY: Includes cholecystectomy, hernia repair, appendectomy, colostomy. MEDICATIONS: Upon admission include: 1. Zetia. 2. Potassium. 3. Cardizem. 4. Aspirin. 5. Albuterol. 6. Xanax. 7. [place]. 8. Flovent. 9. Digoxin. 10. Lipitor. 11. Metoprolol. 12. Lisinopril. 13. Synthroid. 14. Coumadin. 15. Torsemide. 16. Spiriva. 17. Zoloft. 18. Omeprazole. 19. Trazodone. 20. Lyrica. ALLERGIES: To BEES, CELEBREX, IV CONTRAST, and SHELLFISH. FAMILY HISTORY: Coronary artery disease, diabetes. SOCIAL HISTORY: She quit tobacco a couple of years ago. No IV drugs. Rare alcohol. REVIEW OF SYSTEMS: Twelve systems were reviewed, other than that mentioned in the HPI were unremarkable. PHYSICAL EXAM: Temperature is 97.6, blood pressure is 102/67, pulse is 69. General: Well-appearing female, no apparent distress, alert and oriented, pleasant, fluent. HEENT: Mucous membranes are moist without lesions, ulcers, or exudate. Neck is supple. Trachea is midline. Head is normocephalic, atraumatic. Heart: Irregular rate and rhythm. No rubs or gallops. Lungs: Clear to auscultation bilaterally. No wheezes, rales, or rhonchi. Abdomen is obese. Positive bowel sounds. Soft. She does have a colostomy in the left upper quadrant. No rebound. No guarding. Skin is warm and dry. Musculoskeletal: No CVA or spinal tenderness to palpation. LABORATORY DATA: Of note, hemoglobin is stable at 9.1; it was 8.9 and 9.3 earlier. INR is down to 3.01 from the peak of 6.73. BUN is 14, creatinine is 0.71. ASSESSMENT AND PLAN: This is a 65-year-old female with colostomy secondary to obstructing colon area with blood per ostomy likely. The bleeding was worsened by INR of 6.7. I do not have a good explanation for the initial bleeding at this point. There is no evidence of diverticulosis on her previous colonoscopy. I do wonder if she has an ischemic episode, she did have some abdominal pain prior to this happening. At this point, she is doing better, the blood has decreased. Her hemoglobin has stabilized. I would recommend us continuing to follow along very closely. I do not think she needs a colonoscopy right now. I am going to put her on a regular diet. She needs her INR controlled, and potentially if she does well, she can go home tomorrow. CC: Dr. Simons* [id number]/[facility] #: [id number] [facility] SYSTEMBrendan
--- NOTE | 2016-08-23 15:11 | RAD ---
INDICATION: Pain and swelling. COMPARISON: May 12, 2015 TECHNIQUE: Duplex interrogation of the Lowerextremity was performed. FINDINGS: Deep veins: The common femoral, great saphenous, profunda femoris, proximal, mid, and distal deep femoral, popliteal, posterior tibial, and peroneal veins are patent. There is normal compressibility, augmentation, and phasic flow. Superficial veins: There are no findings of superficial thrombophlebitis. Popliteal fossa:There is no evidence of a popliteal cyst. Soft tissues:There are no soft tissue abnormalities. IMPRESSION: Normal examination. No evidence of deep venous thrombosis
[2016-08-23] MEDS: Digoxin TAB* 0.25 MG PO SCH (16:48)
[2016-08-23] MEDS: traZODone TAB* 50 MG TAB PO SCH (20:49)
[2016-08-23] MEDS: Mometasone 220 MCG MDI INH SCH (21:04)
[2016-08-24 04:52] LABS: Hematocrit 27 % (35-47); Hemoglobin 8.8 g/dl (12.0-16.0); Mean Corpuscular HGB Conc 32 g/dl (31-36); Mean Corpuscular Hemoglobin 29 pg (27-31); Mean Corpuscular Volume 91 fL (80-97); Mean Platelet Volume 9 um3 (7.4-10.4); Red Blood Count 3.01 10^6/ul (4.0-5.4); Red Cell Distribution Width 15 % (10.5-15); White Blood Count 11.8 10^3/ul (3.5-10.8)
[2016-08-24 05:07] LABS: BUN/Creatinine Ratio 19.5 (8-20); Calcium 8.1 mg/dL (8.6-10.3); Potassium 4.2 mmol/L (3.5-5.0)
[2016-08-24] MEDS: Levothyroxine TAB* 100 MCG TAB PO SCH (05:23)
[2016-08-24 07:51] VITALS: BP 103/60
[2016-08-24] MEDS: Tiotropium CAP.INH* CAP.INH/18 MCG INH SCH (09:21)
[2016-08-24] MEDS: Metoprolol Tartrate TAB* 50 mg PO SCH (09:36)
[2016-08-24] MEDS: Ezetimibe TAB* 10 MG PO SCH (09:36)
[2016-08-24] MEDS: Diltiazem CD CAP* 240 MG PO SCH (09:36)
[2016-08-24] MEDS: Atorvastatin* 80 MG TAB PO SCH (09:36)
[2016-08-24] MEDS: Sertraline* 100 MG TAB PO SCH (09:36)
--- NOTE | 2016-08-24 10:40 | DCNOTE ---
Subjective Date of Service: 08/24/16 Interval History: Pt reports no further blood noted in colostomy bag and stool has returned to brown in color with her normal consistency of pasty/loose stool. Denies abdominal pain. No dizziness. Denies SOB or CP. Would like to go home. Objective Active Medications: Hydrocodone Bitart/Acetaminophen ([place] 5-325 Tab*) 1 tab PO Q6H PRN PRN Reason: PAIN Last Admin: 08/24/16 05:23 Dose: 1 tab Atorvastatin Calcium (Lipitor*) 80 mg PO DAILY [facility] Last Admin: 08/24/16 09:36 Dose: 80 mg Digoxin (Lanoxin Tab*) 0.25 mg PO 1700 [facility] Last Admin: 08/23/16 16:48 Dose: 0.25 mg Diltiazem HCl (Cardizem Cd Cap*) 240 mg PO DAILY [facility] Last Admin: 08/24/16 09:36 Dose: 240 mg Ezetimibe (Zetia Tab*) 10 mg PO DAILY [facility] Last Admin: 08/24/16 09:36 Dose: 10 mg Levothyroxine Sodium (Synthroid Tab*) 200 mcg PO DAILY@0600 [facility] Last Admin: 08/24/16 05:23 Dose: 200 mcg Metoprolol Tartrate (Lopressor Tab*) 50 mg PO BID [facility] Last Admin: 08/24/16 09:36 Dose: 50 mg Mometasone Furoate (Asmanex 220 Mcg Mdi *) 1 puff INH BEDTIME [facility] Last Admin: 08/23/16 21:04 Dose: 1 puff Pantoprazole Sodium (Protonix Iv*) 40 mg IV Q24H [facility] Last Admin: 08/23/16 13:35 Dose: 40 mg Sertraline HCl (Zoloft*) 200 mg PO DAILY [facility] Last Admin: 08/24/16 09:36 Dose: 200 mg Tiotropium [place] (Spiriva Cap.Inh*) 1 cap INH DAILY [facility] Last Admin: 08/24/16 09:21 Dose: 1 cap Trazodone HCl (Desyrel Tab*) 50 mg PO BEDTIME [facility] Last Admin: 08/23/16 20:49 Dose: 50 mg Vital Signs 08/23/16 08/23/16 08/23/16 11:19 15:43 16:48 Temperature 97.8 F 97.7 F Pulse Rate 71 80 70 Respiratory 16 20 Rate Blood Pressure 128/63 108/69 (mmHg) O2 Sat by Pulse 99 100 Oximetry 08/23/16 08/23/16 08/23/16 19:21 20:00 23:55 Temperature 97.8 F 98.3 F Pulse Rate 80 77 Respiratory 20 20 16 Rate Blood Pressure 122/67 128/77 (mmHg) O2 Sat by Pulse 98 98 Oximetry 08/24/16 08/24/16 08/24/16 04:09 05:23 07:23 Temperature 98.6 F Pulse Rate 60 Respiratory 16 18 16 Rate Blood Pressure 118/68 (mmHg) O2 Sat by Pulse 97 Oximetry 08/24/16 08/24/16 07:28 09:25 Temperature 98.6 F Pulse Rate 76 70 Respiratory 20 14 Rate Blood Pressure 103/60 (mmHg) O2 Sat by Pulse 96 98 Oximetry Oxygen Devices in Use Now: Nasal Cannula - 2 1/2 L NC Appearance: obese female sitting up on the side of the bed in NAD. A+O x3 Eyes: No Scleral Icterus, PERRLA Ears/Nose/Mouth/Throat: NL Teeth, Lips, Gums, Mucous Membranes Moist Neck: NL Appearance and Movements; NL JVP, Trachea Midline Respiratory: Symmetrical Chest Expansion and Respiratory Effort, Clear to Auscultation Cardiovascular: NL Sounds; No Murmurs; No JVD, RRR, - - trace LE edema b/l Abdominal: NL Sounds; No Tenderness; No Distention, - - obese; colostomy noted draining brown stool; pasty, loose Extremities: No Clubbing, Cyanosis Skin: No Rash or Ulcers, No Nodules or Sclerosis Neurological: Alert and Oriented x 3, NL Sensation, NL Gait, NL Muscle Strength and Tone Lines/Tubes/Other Access: Clean, Dry and Intact Peripheral IV Nutrition: Taking PO's Result Diagrams: 08/24/16 04:19 08/24/16 04:19 Additional Lab and Data: Lab Results 08/22/16 08/22/16 08/22/16 Range/Units 11:28 11:28 11:28 WBC 12.6 H (3.5-10.8) 10^3/ul RBC 3.72 L (4.0-5.4) 10^6/ul Hgb 10.7 L (12.0-16.0) g/dl Hct 34 L (35-47) % MCV 90 (80-97) fL MCH 29 (27-31) pg MCHC 32 (31-36) g/dl RDW 15 (10.5-15) % Plt Count 189 (150-450) 10^3/ul MPV 9 (7.4-10.4) um3 Neut % (Auto) 75.6 (38-83) % Lymph % (Auto) 15.2 L (25-47) % [place] % (Auto) 6.2 (1-9) % Eos % (Auto) 2.0 (0-6) % Baso % (Auto) 1.0 (0-2) % Absolute Neuts (auto) 9.5 H (1.5-7.7) 10^3/ul Absolute Lymphs (auto) 1.9 (1.0-4.8) 10^3/ul Absolute Monos (auto) 0.8 (0-0.8) 10^3/ul Absolute Eos (auto) 0.3 (0-0.6) 10^3/ul Absolute Basos (auto) 0.1 (0-0.2) 10^3/ul Absolute Nucleated RBC 0 10^3/ul Nucleated RBC % 0 INR (Anticoag Therapy) 6.73 H* (0.89-1.11) Sodium 134 (133-145) mmol/L Potassium 4.4 (3.5-5.0) mmol/L Chloride 104 (101-111) mmol/L Carbon Dioxide 26 (22-32) mmol/L Anion Gap 4 (2-11) mmol/L BUN 19 (6-24) mg/dL Creatinine 0.89 (0.51-0.95) mg/dL Est GFR ( Amer) 81.9 (>60) Est GFR (Non-Af Amer) 63.7 (>60) BUN/Creatinine Ratio 21.3 H (8-20) Glucose 115 H (70-100) mg/dL Lactic Acid (0.5-2.0) mmol/L Calcium 8.5 L (8.6-10.3) mg/dL Magnesium 1.8 L (1.9-2.7) mg/dL Total Bilirubin 0.50 (0.2-1.0) mg/dL AST 14 (13-39) U/L ALT 17 (7-52) U/L Alkaline Phosphatase 70 (34-104) U/L Troponin I 0.01 (<0.04) ng/mL B-Natriuretic Peptide ( - 100) pg/mL Total Protein 7.3 (6.4-8.9) g/dL Albumin 3.3 (3.2-5.2) g/dL Globulin 4.0 (2-4) g/dL Albumin/Globulin Ratio 0.8 L (1-3) TSH 1.06 (0.34-5.60) mcIU/mL 08/22/16 08/22/16 Range/Units 11:28 11:28 WBC (3.5-10.8) 10^3/ul RBC (4.0-5.4) 10^6/ul Hgb (12.0-16.0) g/dl Hct (35-47) % MCV (80-97) fL MCH (27-31) pg MCHC (31-36) g/dl RDW (10.5-15) % Plt Count (150-450) 10^3/ul MPV (7.4-10.4) um3 Neut % (Auto) (38-83) % Lymph % (Auto) (25-47) % [place] % (Auto) (1-9) % Eos % (Auto) (0-6) % Baso % (Auto) (0-2) % Absolute Neuts (auto) (1.5-7.7) 10^3/ul Absolute Lymphs (auto) (1.0-4.8) 10^3/ul Absolute Monos (auto) (0-0.8) 10^3/ul Absolute Eos (auto) (0-0.6) 10^3/ul Absolute Basos (auto) (0-0.2) 10^3/ul Absolute Nucleated RBC 10^3/ul Nucleated RBC % INR (Anticoag Therapy) (0.89-1.11) Sodium (133-145) mmol/L Potassium (3.5-5.0) mmol/L Chloride (101-111) mmol/L Carbon Dioxide (22-32) mmol/L Anion Gap (2-11) mmol/L BUN (6-24) mg/dL Creatinine (0.51-0.95) mg/dL Est GFR ( Amer) (>60) Est GFR (Non-Af Amer) (>60) BUN/Creatinine Ratio (8-20) Glucose (70-100) mg/dL Lactic Acid 1.0 (0.5-2.0) mmol/L Calcium (8.6-10.3) mg/dL Magnesium (1.9-2.7) mg/dL Total Bilirubin (0.2-1.0) mg/dL AST (13-39) U/L ALT (7-52) U/L Alkaline Phosphatase (34-104) U/L Troponin I (<0.04) ng/mL B-Natriuretic Peptide 319 H ( - 100) pg/mL Total Protein (6.4-8.9) g/dL Albumin (3.2-5.2) g/dL Globulin (2-4) g/dL Albumin/Globulin Ratio (1-3) TSH (0.34-5.60) mcIU/mL Microbiology and Other Data: Microbiology 08/22/16 14:30 Nasal Screen MRSA (PCR)([facility]) - Final Nasal Mrsa Positive Assess/Plan/Problems-Billing Assessment: 65 yo female with PMH paroxysmal afib on coumadin, hx of distant PE who present with c/o blood per colostomy who was found to have an INR 6.7. - Patient Problems (1) GI bleed Comment: - appears lower GI bleed in the setting of supratherapuetic INR. HH stable. Plan to hold coumadin for a few weeks and PCP will need to address restarting. - GI consulted - no plan for scoping. Hold coumadin for 2 weeks at minimum; ok to restart ASA tomorrow. - HH stable - recheck tuesday (2) Atrial fibrillation with RVR Comment: - now rate controlled. - Continue Cardizem, Digoxin and metoprolol - Hold coumadin. restart ASA tomorrow (3) Subtherapeutic anticoagulation SNOMED Code(s): 90622454 Comment: INR 1.4, down from 6.7 (4) Chronic pain Comment: continue [place] (5) COPD (chronic obstructive pulmonary disease) Comment: - Stable. - Continue Spiriva, Dulera and oxygen (on home 2L [place]). (6) Diastolic CHF Comment: - asymptomatic. (7) HTN (hypertension) Comment: controlled, continue cardizem and metoprolol. (8) Hypothyroidism (acquired) Comment: Continue levothyroxine. (9) S/P aortic valve replacement with bioprosthetic valve Comment: - porcine valve (10) Hx of pulmonary embolus Comment: - ??? per pt she is unclear of her hx of PE and doesnt believe she has a hx of PE, but does report very distant hx of DVT- looking back at CTA 2010 no noted PE - RLE U/S negative for DVT (11) DVT prophylaxis Comment: SCDs (12) Full code status Comment: Full Code. Status and Disposition: inpatient with GI bleed. Home today.
--- NOTE | 2016-08-25 08:15 | DS ---
DISCHARGE SUMMARY: DATE OF ADMISSION: 08/22/16 DATE OF DISCHARGE: 08/24/16 PROVIDER: Amanda Lara NP ATTENDING PHYSICIAN: Dr. Vail *(report dictated by Amanda Lara NP). PRIMARY CARE PROVIDER: Dr. Simons. PRIMARY DIAGNOSES: 1. Gastrointestinal bleed with acute blood loss anemia. 2. Supratherapeutic INR. 3. Atrial fibrillation with rapid ventricular response. SECONDARY DIAGNOSES: 1. Coronary artery disease with bypass grafting. 2. Status post porcine aortic valve replacement. 3. Distant history of deep vein thrombosis in her lower extremity. Please note there is a report of a history of a pulmonary embolism on the patient's chart, but the patient denies having a history of pulmonary embolism in the past and per chart review of her records here and CTA from 2013, no evidence of pulmonary embolism. 4. Hypothyroidism. 5. Hyperlipidemia. 6. Hypertension. 7. Chronic obstructive pulmonary disease on home oxygen of 2.5 L nasal cannula 24 x7. 8. Diastolic congestive heart failure with preserved ejection fraction. 9. Peripheral vascular disease. 10. Morbid obesity. 11. Gastroesophageal reflux disease. 12. Dyslipidemia. DISCHARGE MEDICATIONS: 1. Zetia 10 mg p.o. daily. 2. Potassium chloride 20 mEq p.o. b.i.d. 3. Cardizem 240 mg p.o. daily. 4. Albuterol 2 puffs INH q.4 hours p.r.n. 5. Xanax 0.25 mg p.o. q.6 hours p.r.n. 6. Randlett 5/325 mg 1 tab p.o. q.6 hours p.r.n. 7. Flovent HFA 44 mcg 2 puffs INH b.i.d. 8. EpiPen 0.3 mg IM p.r.n. per instructions. 9. Digoxin 250 mcg p.o. at 1700 hours. 10. Lipitor 80 mg p.o. daily. 11. Metoprolol tartrate 50 mg p.o. b.i.d. 12. Lisinopril 2.5 mg p.o. daily. 13. Synthroid 200 mcg p.o. daily. 14. Torsemide 240 mg p.o. daily. 15. Spiriva 1 cap INH daily. 16. Zoloft 200 mg p.o. daily. 17. Omeprazole 40 mg p.o. daily. 18. Trazodone 50 mg p.o. at bedtime. 19. Lyrica 50 mg p.o. daily. MEDICATION TO BE RESTARTED: On 08/25/16, aspirin 81 mg daily. MEDICATION ON HOLD FOR MINIMUM OF 2 WEEKS: Coumadin 6 mg p.o. daily. HISTORY OF PRESENT ILLNESS AND HOSPITAL COURSE: Please see history and physical by this author for full admission details but in summary this is a 65- year-old female with a complex past medical history, paroxysmal atrial fibrillation, on Coumadin therapy, and status post colostomy who presented to the emergency department with a report of noted blood in her colostomy bag starting the day prior to admission. On admission, the patient's labs reveal an INR of 6.73 with a hemoglobin of 10.7 and 34. Ms. Ziegler reported that the day before admission she noted some streaks of blood in her stool but did not think much of it. Then the morning of admission, she woke up to her colostomy bag had leaked all over her and there was noted dark red blood all over her pyjamas, bedsheets and she became very concerned and her son called 911. The patient reports that she was able to clean herself up and put a new bag over her stoma and when she was seen in evaluation in the emergency department she was noted to approximately 100 mL of dark red blood in her colostomy bag. The patient was admitted to the hospitalist service on telemetry. Her H and Hs were trended which remained stable. Last H and H was 8.8 and 27. The patient has been asymptomatic. The patient significantly improved on the day of admission and it was noted that the bleeding appeared to be slowing down. She was given vitamin K 5 mg in the emergency department. Her INR has trended down and today it is 1.40. The patient was seen in consultation by Dr. Greco, cap coverer who does not feel that it is necessary for the patient to undergo a colonoscopy as she had a colonoscopy approximately a year ago which showed narrowed, contorted spots of the distal colon. No diverticulosis, ileocecal polyps in the mid to proximal right colon, erythema and chronic irritation. Due to the patient had much improvement over hospitalization recommendations was for no colonoscopy at this time. Dr. Greco did recommend the patient hold her Coumadin therapy for a minimum of 2 weeks and to discuss with her PCP when to restart. In regards to the patient's past medical history of DVTs, this appears to be quite sometime ago however, the patient has a noted history in her problem list of pulmonary embolism but in discussing this with the patient, she has never heard this diagnosis before in the past as well as there is a 2013 CTA which shows no pulmonary embolism and I question if this is a mistake on her problem list. I deferred the patient to discuss this with her PCP. At this time, I feel comfortable taking the patient off her anticoagulation due to her GI bleed as if there is a history of pulmonary embolism, it is quite sometime ago. Again the patient was instructed to follow up with her primary care regarding this. The patient is stable for discharge home. She was monitored for an extra day in the hospital to trend her hemoglobin and hematocrit as well as monitoring for signs of recurrent bleeding and the patient has been stable. The patient's colostomy this morning is draining brown stool which she reports is her baseline with no signs of dark red blood. The patient denies any chest pain, shortness of breath. The patient has been ambulating around her room without any complaints. She has remained on her home oxygen of 2.5 L of nasal cannula. Please note, the patient was noted to be in rapid AFib with RVR on admission. She initially was started on a Cardizem drip. However per patient when she came in she had skipped her morning medications. These were given to the patient and she resumed rate control without difficulty. Chest x-ray, impression: "Elevated left hemidiaphragm, no evidence for acute findings." Venous Doppler study of the right lower extremity, impression: Normal exam. No evidence of deep vein thrombosis. DISCHARGE PLAN: Followup with Dr. Simons 08/27/16 at 1:50 p.m. The patient was instructed to hold her Coumadin for a minimum of 2 weeks and discuss this with her primary care provider. The patient may resume her aspirin tomorrow, 08/25/16. Followup labs with a CBC and INR on 08/27/16 with results to PCP. DISCHARGE TIME: Approximately 60 minutes spent on this discharge. AMANDA LARA NP CC: Dr. Simons* [id number]/[facility] #: [id number] SERENA
== END 2016-08-24 11:40 | disposition home or self-care (01) | DRG 378 ==
LOC: ED 11:04 → MEDTELE 13:08 → OBSVTOIN 08-23 11:06
PROVIDERS: ADMIT Hospitalist; ATTEND Hospitalist
DX: K92.2 Gastrointestinal hemorrhage, unspecified (principal); D62 Acute posthemorrhagic anemia; Z99.81 Dependence on supplemental oxygen; I25.810 Atherosclerosis of coronary artery bypass graft(s) without angina pectoris; I11.0 Hypertensive heart disease with heart failure; I50.30 Unspecified diastolic (congestive) heart failure; Z68.41 Body mass index [BMI] 40.0-44.9, adult; I48.0 Paroxysmal atrial fibrillation; E03.9 Hypothyroidism, unspecified; E78.5 Hyperlipidemia, unspecified; J44.9 Chronic obstructive pulmonary disease, unspecified; F32.9 Major depressive disorder, single episode, unspecified; R79.1 Abnormal coagulation profile; I73.9 Peripheral vascular disease, unspecified; E66.01 Morbid (severe) obesity due to excess calories; K21.9 Gastro-esophageal reflux disease without esophagitis; F41.9 Anxiety disorder, unspecified; Z95.3 Presence of xenogenic heart valve; Z79.01 Long term (current) use of anticoagulants; Z86.718 Personal history of other venous thrombosis and embolism; Z93.3 Colostomy status; Z79.82 Long term (current) use of aspirin; Z79.899 Other long term (current) drug therapy; Z88.8 Allergy status to other drugs, medicaments and biological substances; Z91.030 Bee allergy status; Z91.041 Radiographic dye allergy status; Z91.013 Allergy to seafood; Z82.49 Family history of ischemic heart disease and other diseases of the circulatory system; Z83.3 Family history of diabetes mellitus; Z87.891 Personal history of nicotine dependence
CPT/HCPCS: 36415; 71010; 80048; 80053; 83605; 83735; 83880; 84443; 84484; 85014; 85018; 85025; 85610; 87641; 93005; 94640; 94760; A9270-GY; G0378; J3430

== ENCOUNTER 2017-08-03 11:19 | Inpatient (IN) | payer MEDICARE, MEDICAID ==
[2017-08-03] MEDS ORDERED: Levalbuterol 1.25MG/0.5ML NEB INH ONE (11:48)
[2017-08-03 12:23] LABS: ABS Basophils 0.1 10^3/ul (0-0.2); ABS Eosinophils 0 10^3/ul (0-0.6); ABS Lymphocytes 1.3 10^3/ul (1.0-4.8); ABS Monocytes 1.3 10^3/ul (0-0.8); ABS Neutrophils 4.6 10^3/ul (1.5-7.7); ABS Nucleated RBC 0 10^3/ul; Eosinophil % 0.1 % (0-6); Hematocrit 39 % (35-47); Hemoglobin 12.7 g/dl (12.0-16.0); Lymphocyte % 17.9 % (25-47); Mean Corpuscular HGB Conc 33 g/dl (31-36); Mean Corpuscular Hemoglobin 27 pg (27-31); Mean Corpuscular Volume 84 fL (80-97); Mean Platelet Volume 9 um3 (7.4-10.4); Nucleated Red Blood Cells % 0; Platelet Count 180 10^3/ul (150-450); Red Blood Count 4.65 10^6/ul (4.0-5.4); Red Cell Distribution Width 18 % (10.5-15); White Blood Count 7.3 10^3/ul (3.5-10.8)
[2017-08-03] MEDS ORDERED: Digoxin IV* 0.5 MG/2 ML AMP (0.25 MG/ML) IV SLOW PU ONE (12:37)
[2017-08-03] MEDS ORDERED: NS 0.9% 500 ML* 500 ML IV ONE (12:37)
[2017-08-03] MEDS ORDERED: cefTRIAXone(*) 1 GM in NS 0.9% 50 ML* 50 ML IVPB ONE (12:39)
[2017-08-03 12:40] LABS: INR 1.1 (0.77-1.02)
--- NOTE | 2017-08-03 12:57 | RAD ---
INDICATION: Chest pain and shortness of breath COMPARISON: Most recent comparison chest x-ray August 22, 2016 TECHNIQUE: Single AP portable view of the chest was obtained. FINDINGS: Image quality is compromised due to the relative inferiority of a portable chest x-ray. Similar to the prior chest x-ray there is a mild degree of cardiomegaly. There is fullness of the bilateral janel also similar to the previous chest x-ray. The lungs are grossly clear. There is no evidence of a large pleural effusion. Visualized bones are normal for the patient's age. IMPRESSION: No radiographic evidence for acute cardiopulmonary abnormality on this portable chest x-ray.
[2017-08-03 13:06] LABS: Urine Appearance Clear; Urine Blood 1+ (Negative); Urine Color Yellow; Urine Ketones Negative (Negative); Urine Protein Negative (Negative); Urine Specific Gravity 1.021 (1.010-1.030); Urine Urobilinogen Negative (Negative)
[2017-08-03 13:12] LABS: EGFR Non-African American 54.8 (>60)
[2017-08-03] MEDS ORDERED: Metoprolol Tartrate IV* 1 MG/ML 5 ML VIAL IV ONE (13:22)
[2017-08-03] MEDS ORDERED: methylPREDNISolone 125 MG* 2 ML VIAL IV ONE (13:23)
[2017-08-03] MEDS ORDERED: Ondansetron INJ* 2 MG/ML VIAL IV PRN (13:31)
[2017-08-03] MEDS ORDERED: Albuterol HFA INHALER* 8 gm MDI INH PRN (13:35)
[2017-08-03] MEDS ORDERED: Dextrose 50% Syringe 50 ML* 25 GM/50 ML SYRINGE IV PUSH PRN (13:35)
--- NOTE | 2017-08-03 14:45 | RAD ---
INDICATION: Abdominal distention, nausea and vomiting. COMPARISON: Comparison is made with a prior CT of the abdomen and pelvis from March 17, 2016. TECHNIQUE: Supine and upright views of the abdomen were obtained. FINDINGS: The small bowel and colon appear nondistended. No free intraperitoneal air is seen. There is an ostomy in the left lower quadrant. Contrast or calcific debris is noted within the rectosigmoid colon. Surgical clips are noted in the right upper and lower quadrants. IMPRESSION: NO EVIDENCE FOR OBSTRUCTION.
[2017-08-03] MEDS: Enoxaparin(*) 100 MG/ML SYR SUBCUT SCH (15:57)
[2017-08-03] MEDS ORDERED: Warfarin TAB(*) 6 MG PO SCH (17:00)
--- NOTE | 2017-08-03 17:20 | ECHO ---
Amended Report Patient: KENYETTA WATSON [facility] Rec#: [id number] : 1950 Date: 08/03/2017 Age: 66y Height: 162.56 cm / 64.0 in Weight: 114.53 kg / 252.4 lbs Sex: F BSA: 2.16 Room#: ICU-7 Admit Date#: 08/03/2017 Type: Inpatient Referring: Renzo Leal MD Reading: Misa Morris MD Excavating Machine Operator: [facility] CC: Kajal Simons MD Transthoracic Echocardiogram Indication: Chest pain, RVR A-FIB BP: 131/94 HR: 101 Rhythm: A-Fib Findings History: , s/p AVR 2010 #21 Pearce Magna pericardial, CAD s/p CABG, HTN, hypothyroidism, MO, RYAN, O2 dependent, PVD, PE, PAF, former smoker, COPD. Patient refused the use of Definity. Technical Comments: The study is technically difficult. The study is technically limited due to patient body habitus. The study was technically limited due to the patient's inability to lay in the left lateral decubitus position. Completed at 1700. Left Ventricle: The left ventricular chamber size is normal. Moderate to severe concentric left ventricular hypertrophy is observed. There is a focal wall motion abnormality present.Base of the inferior wall relatively hypokineitic, possible varient of normal (seen in 2 chamber view). Left ventricular systolic function is at the lower limits of normal. The estimated ejection fraction is 50-55%. Post surgical hypokinesis of the interventricular septum is observed consistent with coronary artery bypass. The assessment of diastolic function is non-diagnostic. The left ventricular diastolic filling pattern is consistent with elevated left ventricular end-diastolic pressure. Left Atrium: The left atrium is severely dilated. Right Ventricle: The right ventricle wall thickness is mildly increased. The right ventricle is moderately dilated. The right ventricular global systolic function is mildly reduced. Right Atrium: The right atrial cavity size is severely dilated. Aortic Valve: The aortic valve structure is not well visualized. There is no evidence of aortic regurgitation. There is no evidence of aortic stenosis. The mean gradient of the aortic valve is 15.62 mmHg. The peak instantaneous gradient of the aortic valve is 29.29 mmHg. The aortic valve area, by peak velocities, is calculated at 1.16 cm2. The aortic valve area, by VTI's, is calculated at 1.29 cm2. A bio-prosthetic pericardial aortic valve is present. Mitral Valve: There is posterior mitral annular calcification. The mitral valve leaflets are moderately thickened. There is moderate mitral regurgitation. There is no evidence of mitral stenosis. Tricuspid Valve: The tricuspid valve structure is not well visualized. There is mild tricuspid regurgitation. The right ventricular systolic pressure is estimated at 24 mmHg. There is evidence that pulmonary hypertension may be underestimated. There is no tricuspid stenosis. Pulmonic Valve: The pulmonic valve appears normal. There is a trace pulmonic regurgitation. There is no pulmonic stenosis. Pericardium: There is no significant pericardial effusion. A pericardial fat pad is visualized. Aorta: There is borderline dilatation of the ascending aorta. The aortic arch is not well visualized. The aortic root is normal in size. Pulmonary Artery: The main pulmonary artery is not well visualized. Venous: The inferior vena cava is dilated. There is a greater than 50% respiratory change in the inferior vena cava dimension. Conclusions The study is technically difficult, the patient was in atrial fibrillation throughout the study and frequently tachycardic. Moderate to severe concentric left ventricular hypertrophy is observed. The estimated ejection fraction is 50-55%. The left ventricular filling pattern is consistent with elevated left ventricular end-diastolic pressure. The right ventricular global systolic function is mildly reduced. The left atrium is severely dilated. The right atrial cavity size is severely dilated. A bio-prosthetic pericardial aortic valve is present with normal gradients and valve area for size, type and valve location. The mean gradient of the aortic valve is 15.62 mmHg. The aortic valve area, by VTI's, is calculated at 1.29 cm2. There is moderate mitral regurgitation. There is mild tricuspid regurgitation. The right ventricular systolic pressure is estimated at 24 mmHg. Compared with prior echo of 06/09/16, EF stable, LVH seen before, mean gradient previously 10 mmHg, EOA previously 1.6 cm2, the degree of MR has increased from mild. HR has increased from 50 bpm, unable to identify what rhythm the patient was in on the prior study. Measurements Name Value Normal Range RVIDd (AP) 2D 3 cm (0.9 - 2.6) RVDdMajor (2D) 5 cm (2.2 - 4.4) RVAW (2D) 0.8 cm (0.2 - 0.5) RAd ISD 4CH 6.3 cm (3.4 - 4.9) RA (A4C)W 4.5 cm (2.9 - 4.6) IVSd (2D) 1.6 cm (0.6 - 1) LVPWd (2D) 1.6 cm (0.6 - 1) LVIDd (2D) 3.7 cm (3.6 - 5.4) LVIDs (2D) 3.2 cm - LV FS (2D) 14 % (25 - 45) Aortic Annulus 1.6 cm (1.4 - 2.6) Ao root diameter (2D) 3.5 cm (2.1 - 3.5) Ascending Ao 3.4 cm (2.1 - 3.4) LA dimension (AP) 2D 5.6 cm (2.3 - 3.8) LAd ISD 4CH 6.9 cm (2.9 - 5.3) LA ISD 4CH W 6.6 cm (2.5 - 4.5) Name Value Normal Range LA ESV SP 4CH (A/L) 166 ml - LA ESV SP 2CH (A/L) 131 ml - LA ESV BP (A/L) 156 ml - LA ESV BP (A/L) index 72 ml/m2 - LA ESV SP 4CH (MOD) 149 ml - LA ESV SP 2CH (MOD) 125 ml - Name Value Normal Range MV E-wave Vmax 1.21 m/sec - MV deceleration time 182 msec - LV septal e' Vmax 0.07 m/sec - LV lateral e' Vmax 0.08 m/sec - LV E:e' septal ratio 17.29 ratio - LV E:e' lateral ratio 15.13 ratio - Name Value Normal Range AV Vmax 2.7 m/sec - AV VTI 40.8 cm - AV peak gradient 29.29 mmHg - AV mean gradient 15.62 mmHg - LVOT diameter 2 cm - LVOT Vmax 1.01 m/sec - LVOT VTI 16.81 cm - LVOT peak gradient 4.19 mmHg - LVOT mean gradient 2.06 mmHg - DOI (VTI) 0.41 ratio - BARI (continuity Vmax) 1.16 cm2 - BARI (continuity VTI) 1.29 cm2 - SHAHLA Vmax 1.25 m/sec - Name Value Normal Range MR Vmax 6.34 m/sec - MR VTI 177.25 cm - MR flow (PISA) 49 ml/sec - MR ERO 0.07 cm2 - MR PISA radius 0.5 cm - MR alias Vmax 30.92 cm/sec - Name Value Normal Range TR Vmax 2 m/sec - TR peak gradient 16 mmHg - RAP 8 mmHg - RVSP 24 mmHg - IVC diameter 2.5 cm - Name Value Normal Range PV Vmax 1.02 m/sec - PV peak gradient 4.32 mmHg -
[2017-08-03] MEDS ORDERED: Metoprolol Tartrate IV* 1 MG/ML 5 ML VIAL IV PRN (17:33)
[2017-08-03] MEDS: Insulin LISPRO* 1 UNITS UNIT SUBCUT SCH ×2 (17:35→20:49)
[2017-08-03] MEDS: Mometasone 220 MCG MDI INH SCH (19:59)
[2017-08-03] MEDS: Metoprolol Tartrate TAB* 50 mg PO SCH (20:34)
[2017-08-03] MEDS: Oseltamivir CAP* 75 MG CAP PO SCH (20:35)
[2017-08-03] MEDS: HYDROcodone/ACETAMIN 5-325 MG* 1 TAB PO PRN (20:36)
[2017-08-03] MEDS: Pregabalin CAP(*) 50 MG PO SCH (20:36)
[2017-08-03] MEDS: traZODone TAB* 50 MG TAB PO SCH (20:37)
[2017-08-03] MEDS: ALPRAZolam TAB* 0.25 MG PO PRN (20:38)
--- NOTE | 2017-08-03 20:48 | HP ---
CC: Dr. Simons; Dr. Sanders.* ADMISSION HISTORY AND PHYSICAL: DATE OF ADMISSION: 08/03/17 PRIMARY CARE PROVIDER: Dr. Simons. BIOMETRICS EXPERIMENTALIST: Dr. Sanders. HEALTH CARE PROXY: Her son, Nehemiah. CODE STATUS: Full. SOURCE OF INFORMATION: History obtained from interview with the patient, review of past medical records and including Dr. Simons's. RELIABILITY: Good. CHIEF COMPLAINT: Shortness of breath, nausea and vomiting. HISTORY OF PRESENT ILLNESS: This is a 66-year-old female who had been in her usual state of health until approximately 3 days prior to presentation, started to develop cough, associated with chest pain when coughing. Chest pain was substernal, lasted for several minutes, usually resolved when she stopped coughing, although she did experience her chest pain at times with exertion, resolved with rest. She did not take any nitroglycerin since she had run out of it. Her cough was associated with sputum production that gradually became yellow yesterday. She had increased shortness of breath over the last several days, also worse yesterday associated with myalgias as well as subjective fevers , feeling cold, and diaphoretic. She denies any sick contacts, headaches, but does endorse nausea, vomiting x2 days with difficulty keep down her medications and food. She denies diarrhea, but endorses fatigue, as well as decreased p.o. intake, although she tried to maintain oral fluids. She noticed decreased urine output with decreased fluid intake, but denied any dysuria, urinary frequency or hesitancy. She thought about presenting to the emergency room yesterday because of her continued shortness of breath and general feeling unwell "all over," however, had an appointment with Dr. Simons's office today , so awaited and presented today to her primary care physician who upon evaluating patient activated EMS and directed the patient [place] [facility] [place] When seen by this author, patient was tachycardic, complaining of shortness of breath. PAST MEDICAL HISTORY: Includes chronic respiratory failure, on 2.5 L oxygen; diastolic heart failure; COPD with chronic respiratory failure; atrial fibrillation, on Coumadin; porcine aortic valve replacement in 2009; right lower extremity DVT approximately 10 years prior. Reported history of PE in Dr. Simons's records as well as ours; however, patient denies this. History of RYAN, not yet started on CPAP; type 2 diabetes; bowel obstruction in 2015, complicated by need for colostomy which remains; CAD with CABG in 2009; hyperlipidemia; hypothyroidism; peripheral vascular disease; GERD; cholecystectomy; appendectomy; ventral hernia repair; chronic pain. MEDICATIONS: Reviewed from Dr. Simons's office, printed today include: 1. Albuterol as needed. 2. Alprazolam 0.25 mg daily. 3. Aspirin 81 mg daily. 4. Atorvastatin 80 mg in the evening. 5. Digoxin 250 mcg daily. 6. Diltiazem CD 240 mg daily. 7. Ezetimibe 10 mg daily. 8. Ferrous sulfate 325 mg daily. 9. Flovent HFA daily. 10. Hydrocodone/acetaminophen 5/325 every 4 hours as needed. 11. Levothyroxine 200 mcg daily. 12. Metoprolol 100 mg twice daily. 13. Lyrica 50 mg at bedtime. 14. Spironolactone 25 mg daily. 15. Zoloft 100 mg daily. 16. Spiriva 18 mcg daily. 17. Torsemide 20 mg daily. 18. Trazodone 100 mg at bedtime. 19. Coumadin listed as 2 mg daily, but our medication reconciliation indicates 4 mg Tuesday, Tuesday, , Tuesday and 6 mg Tuesday, Tuesday and Tuesday. ALLERGIES: To SHELLFISH, IODINE, and CELEBREX, which all caused hives. FAMILY HISTORY: Father, no known history. Mother with CAD. Brother with CAD. SOCIAL HISTORY: Quit smoking 3 years prior, approximately 10-year pack history prior to that. No alcohol. Unemployed. REVIEW OF SYSTEMS: As per HPI including cough, chest pain, sputum production that became yellow, increased shortness of breath, myalgias, subjective fevers, nausea, vomiting, decreased p.o. intake. Denies any change in her colostomy output. Otherwise, all other systems negative. PHYSICAL EXAMINATION GENERAL: Sitting up in bed, using accessory muscles of respiration in her neck , able to talk in complete sentences. VITAL SIGNS: Blood pressure 131/94 when seen by this author, heart rate 143, respiratory rate 25, 96% on 4 L, T-max in the emergency room 99.7. HEENT: Oropharynx is clear. She has moist mucous membranes. Sclerae anicteric. NECK: She has elevated JVD. No cervical or supraclavicular lymphadenopathy. LUNGS: Her lungs indicate rales in her left base with wheezing throughout. HEART: She has tachycardic heart rate with irregularly irregular, difficult to auscultate murmurs. ABDOMEN: Distended, nontender. Positive bowel sounds. Colostomy, beefy red stoma, stool present. Hendrix catheter placed in the emergency room. EXTREMITIES: Warm and well perfused. 1+ lower extremity edema. NEUROLOGIC: She is alert and oriented x3. Cranial nerves II through XII are intact. DIAGNOSTIC STUDIES/LAB DATA: Notable for digoxin 0.6 which is low. White blood cell count is 7.3. INR is 1.1. BUN 17, creatinine 1.01 elevated from baseline. Lactic acid 0.9. CRP 35, troponin-I 0.01. Procalcitonin less than 0.1. TSH low at 0.22. Lipase 271. Data reviewed. EKG: Atrial fibrillation, ventricular rate of 135, downsloping T- waves in V4 through V6 as well as aVL. Chest x-ray: Flattening of the diaphragms bilaterally, otherwise grossly clear lungs. ASSESSMENT AND PLAN: This is a 66-year-old female with past medical history of atrial fibrillation; obstructive sleep apnea, not on CPAP; coronary artery disease, status post coronary artery bypass graft; chronic diastolic heart failure; chronic respiratory failure; history of deep vein thrombosis and questionable pulmonary embolus; subtherapeutic on Coumadin, presenting with 3 days of increasing shortness of breath associated with cough, and yellow phlegm production as well as chest pain, worse with exertion and coughing and subjective fevers, nausea and vomiting. 1. Atrial fibrillation and rapid ventricular response, I suspect this is contributing to shortness of breath of unclear duration. Subtherapeutic on Coumadin. Dose Lovenox 1 mg/kg b.i.d. now. TSH is low. We will check free T3 and free T4. Loaded with digoxin 500 mcg prior to my arrival. We will also dose Toprol 5 mg IV now. Admit to the ICU. Should she need continued AV lluvia blockade. Continue to trend troponins. I suspect chronic obstructive pulmonary disease exacerbation contributing to uncontrolled atrial fibrillation and rapid ventricular response. In the setting of history of deep vein thrombosis as well as substernal chest pain and uncontrolled rate, consider CTA should she not improve with management as described. Consider cardiology consult if difficult to control, may benefit from DAQUAN, cardioversion. Continue p.o. diltiazem and metoprolol. 2. Chronic obstructive pulmonary disease, increased shortness of breath, cough , yellow phlegm. Dose IV methylprednisolone 125 mg now and continue oral prednisone starting tomorrow 60 mg, continue other home controller medications. 3. Acute hypoxic respiratory failure, increased work of breathing. Admit to ICU should she need rescue BiPAP, ABG now for further evaluation, I suspect in the setting of chronic obstructive pulmonary disease as well as atrial fibrillation. 4. Coronary artery disease with intermittent chest pain now, I suspect in the setting of rapid rate. Attempt to achieve rate control. Continue to trend troponins. Check transthoracic echocardiogram. If elevated, we will plan on stress test, which she may benefit from as an outpatient regardless given stable angina that she describes prior to her recent illness. 5. Type 2 diabetes. Hemoglobin A1c is 7.1% in May 2017 per outpatient records. Continue fingerstick glucose as well as insulin sliding scale at high dose while on steroids. 6. Chronic pain. Continue home hydrocodone/acetaminophen at home dose. 7. Hyperthyroidism. Add free T3 and free T4 to better evaluate. Abnormal TSH, although notably in the setting of acute illness, utility not fully generalizable, although now atrial fibrillation uncontrolled. 8. DVT prophylaxis. Full dose Lovenox in the setting of uncontrolled atrial fibrillation. [id number]/[facility] #: [id number] [facility]
[2017-08-03] MEDS ORDERED: Potassium Chlor TAB* 20 MEQ TAB.ER PO ONE (23:00)
[2017-08-03] MEDS ORDERED: Magnesium Sulfate 2 GM IV IVPB ONE (23:00)
--- NOTE | 2017-08-03 23:19 | ED ---
León Love Gabriel scribed for Beni Abebe MD on 08/03/17 at 1145 . HPI Chest Pain - HPI Summary HPI Summary: This patient is a 66 year old F BIBA to [facility] with a chief complaint of CP since last night. The patient rates the pain 8/10 in severity. Patient reports vomiting, palpitations, SOB, dizziness, and general malaise. Patient denies fever and ABD pain. Pt was sent from Dr. Simons. Hx afib is on a blood thinner and COPD. - History of Current Complaint Chief Complaint: EDNauseaVomitDiarrh Time Seen by Provider: 08/03/17 11:26 Hx Obtained From: Patient Onset/Duration: Started Days Ago - 1, Still Present Timing: Constant Initial Severity: Moderate Current Severity: Moderate Pain Intensity: 8 Pain Scale Used: 0-10 Numeric Associated Signs and Symptoms: Positive: Negative - fever and ABD pain, Other: - vomiting, palpitations, SOB, dizziness, and general malaise. - Additional Pertinent History Primary Care Physician: CARROLL - Allergy/Home Medications Allergies/Adverse Reactions: Allergies Allergy/AdvReac Type Severity Reaction Status Date / Time bee venom protein (honey bee) Allergy Severe Rash Verified 08/03/17 13:55 shellfish derived Allergy Severe Hives Verified 08/03/17 13:55 Iodinated Contrast- Oral and Allergy Intermediate Hives Verified 08/03/17 13:55 IV Dye celecoxib Allergy Hives Verified 08/03/17 13:55 Home Medications: Home Medications Albuterol HFA INHALER* [Ventolin HFA Inhaler*] 2 puff INH Q4H PRN 08/03/17 [ History Confirmed 08/03/17] Ferrous Sulfate TAB* 325 mg PO DAILY 08/03/17 [History Confirmed 08/03/17] Levothyroxine TAB* [Synthroid TAB*] 200 mcg PO DAILY 08/03/17 [History Confirmed 08/03/17] Pregabalin CAP(*) [Lyrica CAP(*)] 50 mg PO BEDTIME 08/03/17 [History Confirmed 08/03/17] Spironolactone TAB* [Aldactone TAB*] 25 mg PO DAILY 08/03/17 [History Confirmed 08/03/17] Warfarin TAB(*) [Coumadin TAB(*)] 4 mg PO SUTUTHSA 08/03/17 [History Confirmed 08/03/17] PMH/Surg Hx/FS Hx/Imm Hx Endocrine/Hematology History: Reports: Hx Anticoagulant Therapy, Hx Thyroid Disease, Hx Anemia Denies: Hx Diabetes Cardiovascular History: Reports: Hx Cardiac Arrest, Hx Congestive Heart Failure , Hx Coronary Artery Disease, Hx Deep Vein Thrombosis, Hx Hypercholesterolemia, Hx Hypertension, Hx Peripheral Vascular Disease, Hx Valvular Heart Disease, Other Cardiovascular Problems/Disorders - CAD, DVT, valve replacement, CABG Denies: Hx Pacemaker/ICD Respiratory History: Reports: Hx Asthma, Hx Chronic Obstructive Pulmonary Disease (COPD), Hx Pneumonia, Hx Pulmonary Embolism, Hx Sleep Apnea, Other Respiratory Problems/Disorders - home o2, 2.5L GI History: Reports: Hx Diverticulosis, Hx Gall Bladder Disease, Hx Gastroesophageal Reflux Disease, Hx Gastrointestinal Bleed - 08/22/16 admission, Hx Hiatal Hernia, Other GI Disorders - DIVERTICULITIS, SBO with colostomy History: Reports: Hx Kidney Stones Denies: Hx Dialysis, Hx Renal Disease, Other Problems/Disorders Musculoskeletal History: Reports: Hx Arthritis - legs and shoulders, Hx Back Problems, Hx Bursitis, Hx Scoliosis, Other Musculoskeletal History - Left hip replacement Sensory History: Reports: Hx Contacts or Glasses Denies: Hx Deafness, Hx Hearing Aid Opthamlomology History: Reports: Hx Contacts or Glasses Neurological History: Denies: Hx Dementia, Hx Developmental Delay, Hx Headaches, Hx Migraine, Hx Nerve Disease, Hx Seizures, Hx Spinal Cord Injury, Hx Transient Ischemic Attacks (TIA), Other Neuro Impairments/Disorders Psychiatric History: Reports: Hx Anxiety, Hx Depression Denies: Hx Substance Abuse - Surgical History Surgery Procedure, Year, and Place: TUBAL LIGATION 1979, [facility] [place] , CHOLECYSTECTOMY [facility] [place], 2008, KIDNEY STONES REMOVED 1998, [facility] [place], TRIPLE BYPASS, HEART VALVE REPLACEMENT 2010, [facility], LEFT HIP REPLACED, 2009, [facility]. TONSILECTOMY A CHILD Hx Anesthesia Reactions: No - Immunization History Date of Tetanus Vaccine: Up to date Date of Influenza Vaccine: Fall 2011 Infectious Disease History: No Infectious Disease History: Reports: Hx of Known/Suspected MRSA - 08/22/16 [facility] + MRSA nares, Hx Shingles Denies: Hx Hepatitis, Hx Human Immunodeficiency Virus (HIV), Traveled Outside the [place] in Last 30 Days - Family History Known Family History: Positive: Other - neg: anaesthesia reaction - Social History Alcohol Use: Rare Hx Substance Use: No Substance Use Type: Reports: None Hx Tobacco Use: Yes Smoking Status (MU): Former Smoker Type: Cigarettes Have You Smoked in the Last Year: No Review of Systems Positive: Other - general malaise. Negative: Fever Positive: Palpitations, Chest Pain Positive: Shortness Of Breath, Cough Positive: Vomiting. Negative: Abdominal Pain Neurological: Other - dizziness All Other Systems Reviewed And Are Negative: Yes Physical Exam - Summary Physical Exam Summary: General: mildly ill appearing, no pain distress Skin: warm, color reflects adequate perfusion, dry Head: normal Eyes: EOMI, NEISHA ENT: normal Neck: supple, nontender Respiratory: crackels bilaterally Cardiovascular: tachycardia, bilateral edema Abdomen: soft, nontender, colostomy bag present Bowel: present Musculoskeletal: normal, strength/ROM intact Neurological: normal, sensory/motor intact, A&O x3 Psychological: affect/mood appropriate Triage Information Reviewed: Yes Vital Signs On Initial Exam: Initial Vitals Temp Pulse Resp BP Pulse Ox 99.7 F 153 17 114/87 97 08/03/17 11:29 08/03/17 11:29 08/03/17 11:29 08/03/17 11:29 08/03/17 11:29 Vital Signs Reviewed: Yes Diagnostics - Vital Signs Vital Signs Temp Pulse Resp BP Pulse Ox 08/03/17 11:29 99.7 F 153 17 114/87 97 - Laboratory Lab Results: Lab Results 08/03/17 08/03/17 08/03/17 Range/Units 12:00 12:00 12:00 WBC 7.3 (3.5-10.8) 10^3/ul RBC 4.65 (4.0-5.4) 10^6/ul Hgb 12.7 (12.0-16.0) g/dl Hct 39 (35-47) % MCV 84 (80-97) fL MCH 27 (27-31) pg MCHC 33 (31-36) g/dl RDW 18 H (10.5-15) % Plt Count 180 (150-450) 10^3/ul MPV 9 (7.4-10.4) um3 Neut % (Auto) 63.8 (38-83) % Lymph % (Auto) 17.9 L (25-47) % [place] % (Auto) 17.5 H (0-7) % Eos % (Auto) 0.1 (0-6) % Baso % (Auto) 0.7 (0-2) % Absolute Neuts (auto) 4.6 (1.5-7.7) 10^3/ul Absolute Lymphs (auto) 1.3 (1.0-4.8) 10^3/ul Absolute Monos (auto) 1.3 H (0-0.8) 10^3/ul Absolute Eos (auto) 0 (0-0.6) 10^3/ul Absolute Basos (auto) 0.1 (0-0.2) 10^3/ul Absolute Nucleated RBC 0 10^3/ul Nucleated RBC % 0 INR (Anticoag Therapy) 1.10 H (0.77-1.02) APTT 26.2 (26.0-36.3) seconds D-Dimer, Quantitative 492 H (Less Than 230) ng/mL Sodium (133-145) mmol/L Potassium (3.5-5.0) mmol/L Chloride (101-111) mmol/L Carbon Dioxide (22-32) mmol/L Anion Gap (2-11) mmol/L BUN (6-24) mg/dL Creatinine (0.51-0.95) mg/dL Est GFR ( Amer) (>60) Est GFR (Non-Af Amer) (>60) BUN/Creatinine Ratio (8-20) Glucose (70-100) mg/dL Lactic Acid (0.5-2.0) mmol/L Calcium (8.6-10.3) mg/dL Magnesium (1.9-2.7) mg/dL Total Bilirubin (0.2-1.0) mg/dL AST (13-39) U/L ALT (7-52) U/L Alkaline Phosphatase (34-104) U/L Total Creatine Kinase (10-223) U/L CK-MB (CK-2) (0.6-6.3) ng/mL Troponin I (<0.04) ng/mL C-Reactive Protein (< 5.00) mg/L B-Natriuretic Peptide 514 H ( - 100) pg/mL Total Protein (6.4-8.9) g/dL Albumin (3.2-5.2) g/dL Globulin (2-4) g/dL Albumin/Globulin Ratio (1-3) Lipase (11.0-82.0) U/L Procalcitonin (<0.6) ng/mL TSH (0.34-5.60) mcIU/mL Free T4 (0.61-1.12) ng/dL Free T3 (2.5-3.9) pg/mL Urine Color Urine Appearance Urine pH (5-9) Ur Specific [place] (1.010-1.030) Urine Protein (Negative) Urine Ketones (Negative) Urine Blood (Negative) Urine Nitrate (Negative) Urine Bilirubin (Negative) Urine Urobilinogen (Negative) Ur Leukocyte Esterase (Negative) Urine WBC (Auto) (Absent) Urine RBC (Auto) (Absent) Ur Squamous Epith Cells (Absent) Urine Bacteria (Absent) Urine Glucose (Negative) Digoxin (0.8-2.0) ng/ml 08/03/17 08/03/17 08/03/17 Range/Units 12:00 12:00 12:00 WBC (3.5-10.8) 10^3/ul RBC (4.0-5.4) 10^6/ul Hgb (12.0-16.0) g/dl Hct (35-47) % MCV (80-97) fL MCH (27-31) pg MCHC (31-36) g/dl RDW (10.5-15) % Plt Count (150-450) 10^3/ul MPV (7.4-10.4) um3 Neut % (Auto) (38-83) % Lymph % (Auto) (25-47) % Kle[place] % (Auto) (0-7) % Eos % (Auto) (0-6) % Baso % (Auto) (0-2) % Absolute Neuts (auto) (1.5-7.7) 10^3/ul Absolute Lymphs (auto) (1.0-4.8) 10^3/ul Absolute Monos (auto) (0-0.8) 10^3/ul Absolute Eos (auto) (0-0.6) 10^3/ul Absolute Basos (auto) (0-0.2) 10^3/ul Absolute Nucleated RBC 10^3/ul Nucleated RBC % INR (Anticoag Therapy) (0.77-1.02) APTT (26.0-36.3) seconds D-Dimer, Quantitative (Less Than 230) ng/mL Sodium 132 L (133-145) mmol/L Potassium 3.7 (3.5-5.0) mmol/L Chloride 96 L (101-111) mmol/L Carbon Dioxide 30 (22-32) mmol/L Anion Gap 6 (2-11) mmol/L BUN 17 (6-24) mg/dL Creatinine 1.01 H (0.51-0.95) mg/dL Est GFR ( Amer) 70.5 (>60) Est GFR (Non-Af Amer) 54.8 (>60) BUN/Creatinine Ratio 16.8 (8-20) Glucose 128 H (70-100) mg/dL Lactic Acid 0.9 (0.5-2.0) mmol/L Calcium 9.1 (8.6-10.3) mg/dL Magnesium 1.7 L (1.9-2.7) mg/dL Total Bilirubin 0.80 (0.2-1.0) mg/dL AST 19 (13-39) U/L ALT 18 (7-52) U/L Alkaline Phosphatase 64 (34-104) U/L Total Creatine Kinase 48 (10-223) U/L CK-MB (CK-2) 0.5 L (0.6-6.3) ng/mL Troponin I 0.01 (<0.04) ng/mL C-Reactive Protein 35.23 H (< 5.00) mg/L B-Natriuretic Peptide ( - 100) pg/mL Total Protein 7.8 (6.4-8.9) g/dL Albumin 3.4 (3.2-5.2) g/dL Globulin 4.4 H (2-4) g/dL Albumin/Globulin Ratio 0.8 L (1-3) Lipase 271 H (11.0-82.0) U/L Procalcitonin < 0.1 (<0.6) ng/mL TSH 0.22 L (0.34-5.60) mcIU/mL Free T4 1.37 H (0.61-1.12) ng/dL Free T3 2.80 (2.5-3.9) pg/mL Urine Color Urine Appearance Urine pH (5-9) Ur Specific [place] (1.010-1.030) Urine Protein (Negative) Urine Ketones (Negative) Urine Blood (Negative) Urine Nitrate (Negative) Urine Bilirubin (Negative) Urine Urobilinogen (Negative) Ur Leukocyte Esterase (Negative) Urine WBC (Auto) (Absent) Urine RBC (Auto) (Absent) Ur Squamous Epith Cells (Absent) Urine Bacteria (Absent) Urine Glucose (Negative) Digoxin 0.6 L (0.8-2.0) ng/ml 08/03/17 Range/Units 12:40 WBC (3.5-10.8) 10^3/ul RBC (4.0-5.4) 10^6/ul Hgb (12.0-16.0) g/dl Hct (35-47) % MCV (80-97) fL MCH (27-31) pg MCHC (31-36) g/dl RDW (10.5-15) % Plt Count (150-450) 10^3/ul MPV (7.4-10.4) um3 Neut % (Auto) (38-83) % Lymph % (Auto) (25-47) % [place] % (Auto) (0-7) % Eos % (Auto) (0-6) % Baso % (Auto) (0-2) % Absolute Neuts (auto) (1.5-7.7) 10^3/ul Absolute Lymphs (auto) (1.0-4.8) 10^3/ul Absolute Monos (auto) (0-0.8) 10^3/ul Absolute Eos (auto) (0-0.6) 10^3/ul Absolute Basos (auto) (0-0.2) 10^3/ul Absolute Nucleated RBC 10^3/ul Nucleated RBC % INR (Anticoag Therapy) (0.77-1.02) APTT (26.0-36.3) seconds D-Dimer, Quantitative (Less Than 230) ng/mL Sodium (133-145) mmol/L Potassium (3.5-5.0) mmol/L Chloride (101-111) mmol/L Carbon Dioxide (22-32) mmol/L Anion Gap (2-11) mmol/L BUN (6-24) mg/dL Creatinine (0.51-0.95) mg/dL Est GFR ( Amer) (>60) Est GFR (Non-Af Amer) (>60) BUN/Creatinine Ratio (8-20) Glucose (70-100) mg/dL Lactic Acid (0.5-2.0) mmol/L Calcium (8.6-10.3) mg/dL Magnesium (1.9-2.7) mg/dL Total Bilirubin (0.2-1.0) mg/dL AST (13-39) U/L ALT (7-52) U/L Alkaline Phosphatase (34-104) U/L Total Creatine Kinase (10-223) U/L CK-MB (CK-2) (0.6-6.3) ng/mL Troponin I (<0.04) ng/mL C-Reactive Protein (< 5.00) mg/L B-Natriuretic Peptide ( - 100) pg/mL Total Protein (6.4-8.9) g/dL Albumin (3.2-5.2) g/dL Globulin (2-4) g/dL Albumin/Globulin Ratio (1-3) Lipase (11.0-82.0) U/L Procalcitonin (<0.6) ng/mL TSH (0.34-5.60) mcIU/mL Free T4 (0.61-1.12) ng/dL Free T3 (2.5-3.9) pg/mL Urine Color Yellow Urine Appearance Clear Urine pH 5.0 (5-9) Ur Specific [place] 1.021 (1.010-1.030) Urine Protein Negative (Negative) Urine Ketones Negative (Negative) Urine Blood 1+ A (Negative) Urine Nitrate Negative (Negative) Urine Bilirubin Negative (Negative) Urine Urobilinogen Negative (Negative) Ur Leukocyte Esterase Negative (Negative) Urine WBC (Auto) Trace(0-5/hpf) (Absent) Urine RBC (Auto) 1+(3-5/hpf) A (Absent) Ur Squamous Epith Cells Present A (Absent) Urine Bacteria Absent (Absent) Urine Glucose Negative (Negative) Digoxin (0.8-2.0) ng/ml Result Diagrams: 08/03/17 12:00 08/03/17 12:00 Lab Statement: Any lab studies that have been ordered have been reviewed, and results considered in the medical decision making process. - Radiology CXR Radiology Interpretation Completed By: Radiologist - No radiographic evidence for acute cardiopulmonary abnormality on this portable chest x-ray. ED physician has reviewed this radiology report. abd CXR Radiology Interpretation Completed By: Radiologist - NO EVIDENCE FOR OBSTRUCTION. ED physician has reviewed this radiology report. Chest Pain Course/Dx - Course Course Of Treatment: ADMIT HOSPITALIST. - Diagnoses Provider Diagnoses: Chest pain, Rapid atrial fibrillation, Dyspnea - Critical Care Time Critical Care Time: 30-74 min Discharge - Discharge Plan Condition: Guarded Disposition: ADMITTED TO [facility] Consult Consult: 1227 We discussed patient care with Dr. Kong and they has agreed to come assess the patient for admission. He also recommends digoxin. 1233 We discussed patient care with Dr. Leal and he has agreed to come see the patient. The documentation as recorded by the León nowak Gabriel accurately reflects the service I personally performed and the decisions made by me, Beni Abebe MD.
[2017-08-03] MEDS ORDERED: Magnesium Sulfate 2 GM IV* 2 GM/50 ML BAG ONE (23:30)
[2017-08-04] MEDS: Levothyroxine TAB* 100 MCG TAB PO SCH (05:31)
[2017-08-04] MEDS: Enoxaparin(*) 100 MG/ML SYR SUBCUT SCH ×3 (05:32→16:50)
[2017-08-04 05:52] LABS: INR 1.1 (0.77-1.02)
[2017-08-04 05:58] LABS: EGFR Non-African American 70.7 (>60)
[2017-08-04 06:00] LABS: ABS Basophils 0 10^3/ul (0-0.2); ABS Eosinophils 0 10^3/ul (0-0.6); ABS Lymphocytes 0.7 10^3/ul (1.0-4.8); ABS Monocytes 0.5 10^3/ul (0-0.8); ABS Neutrophils 3.9 10^3/ul (1.5-7.7); ABS Nucleated RBC 0 10^3/ul; Eosinophil % 0.1 % (0-6); Hematocrit 38 % (35-47); Hemoglobin 12.3 g/dl (12.0-16.0); Lymphocyte % 14.3 % (25-47); Mean Corpuscular HGB Conc 32 g/dl (31-36); Mean Corpuscular Hemoglobin 27 pg (27-31); Mean Corpuscular Volume 85 fL (80-97); Mean Platelet Volume 9 um3 (7.4-10.4); Nucleated Red Blood Cells % 0; Platelet Count 178 10^3/ul (150-450); Red Blood Count 4.52 10^6/ul (4.0-5.4); Red Cell Distribution Width 18 % (10.5-15); White Blood Count 5.2 10^3/ul (3.5-10.8)
[2017-08-04] MEDS: guaiFENesin/CODIEN 100MG-10MG* 5 ML UDC PO PRN ×2 (06:15→21:32)
[2017-08-04] MEDS: Tiotropium CAP.INH* CAP.INH/18 MCG (USE ORDER SET !) INH SCH (08:26)
[2017-08-04] MEDS: Atorvastatin* 80 MG TAB PO SCH (08:42)
[2017-08-04] MEDS: Ferrous Sulfate TAB* 325 MG PO SCH (08:42)
[2017-08-04] MEDS: Sertraline* 100 MG TAB PO SCH (08:42)
[2017-08-04] MEDS: Diltiazem CD CAP* 240 MG PO SCH (08:42)
[2017-08-04] MEDS: Ezetimibe TAB* 10 MG PO SCH (08:42)
[2017-08-04] MEDS: Oseltamivir CAP* 75 MG CAP PO SCH ×2 (08:42→21:29)
[2017-08-04] MEDS: Aspirin EC Low Dose* 81 MG TAB.EC PO SCH (08:43)
[2017-08-04] MEDS: Torsemide TAB* 20 MG PO SCH (08:43)
[2017-08-04] MEDS: Insulin LISPRO* 1 UNITS UNIT SUBCUT SCH ×4 (08:43→21:28)
[2017-08-04] MEDS ORDERED: Spiriva Inhaler DEVICE* 1 EACH DEVICE INH ONE (09:00)
[2017-08-04] MEDS ORDERED: predniSONE TAB* 20 MG PO SCH (09:00)
--- NOTE | 2017-08-04 10:22 | PN ---
Subjective Date of Service: 08/04/17 Interval History: Pt feels much better, c/o nonproductive cough and generalized weakness Objective Active Medications: Acetaminophen (Tylenol Tab*) 650 mg PO Q4H PRN PRN Reason: FEVER/PAIN Hydrocodone Bitart/Acetaminophen ([place] 5-325 Tab*) 1 tab PO Q4H PRN PRN Reason: PAIN Last Admin: 08/03/17 20:36 Dose: 1 tab Albuterol (Ventolin Hfa Inhaler*) 2 puff INH Q4H PRN PRN Reason: SOB/WHEEZING Alprazolam (Xanax Tab*) 0.25 mg PO Q8H PRN PRN Reason: ANXIETY Last Admin: 08/03/17 20:38 Dose: 0.25 mg Aspirin (Aspirin Ec Low Dose*) 81 mg PO DAILY [facility] Last Admin: 08/04/17 08:43 Dose: 81 mg Atorvastatin Calcium (Lipitor*) 80 mg PO DAILY [facility] Last Admin: 08/04/17 08:42 Dose: 80 mg Dextrose (D50w Syringe 50 Ml*) 12.5 gm IV PUSH .FOR FS < 60 - SS PRN PRN Reason: FS < 60 Digoxin (Lanoxin Tab*) 0.25 mg PO 1700 [facility] Diltiazem HCl (Cardizem Cd Cap*) 240 mg PO DAILY [facility] Last Admin: 08/04/17 08:42 Dose: 240 mg Ezetimibe (Zetia Tab*) 10 mg PO DAILY [facility] Last Admin: 08/04/17 08:42 Dose: 10 mg Enoxaparin Sodium (Lovenox(*)) 100 mg SUBCUT 0600,1800 [facility] Last Admin: 08/04/17 05:32 Dose: 100 mg Ferrous Sulfate (Ferrous Sulfate Tab*) 325 mg PO DAILY [facility] Last Admin: 08/04/17 08:42 Dose: 325 mg Guaifenesin/Codeine Phosphate (Robitussin Ac 100mg-10mg*) 5 ml PO Q6H PRN PRN Reason: COUGH Last Admin: 08/04/17 06:15 Dose: 5 ml Insulin Human Lispro (Humalog*) 0 units SUBCUT ACHS [facility] PRN Reason: Protocol Last Admin: 08/04/17 08:43 Dose: 3 units Levothyroxine Sodium (Synthroid Tab*) 200 mcg PO DAILY@0600 [facility] Last Admin: 08/04/17 05:31 Dose: 200 mcg Metoprolol Tartrate (Lopressor Tab*) 100 mg PO BID [facility] Last Admin: 08/03/17 20:34 Dose: 100 mg Mometasone Furoate (Asmanex 220 Mcg Mdi *) 1 puff INH QPM [facility] Last Admin: 08/03/17 19:59 Dose: 1 puff Ondansetron HCl (Zofran Inj*) 4 mg IV Q4H PRN PRN Reason: NAUSEA/VOMITING Last Admin: 08/03/17 18:16 Dose: 4 mg Oseltamivir Phosphate (Tamiflu Cap*) 75 mg PO BID [facility] Stop: 08/08/17 09:01 Last Admin: 08/04/17 08:42 Dose: 75 mg Pharmacy Profile Note (Coumadin Daily Reminder*) 0 note FOLLOW UP 1700 [facility] Last Admin: 08/03/17 17:34 Dose: 1 note Prednisone (Deltasone Tab*) 60 mg PO DAILY [facility] Last Admin: 08/04/17 08:43 Dose: 60 mg Pregabalin (Lyrica Cap(*)) 50 mg PO BEDTIME [facility] Last Admin: 08/03/17 20:36 Dose: 50 mg Sertraline HCl (Zoloft*) 200 mg PO DAILY [facility] Last Admin: 08/04/17 08:42 Dose: 200 mg Tiotropium [place] (Spiriva Cap.Inh*) 1 cap INH DAILY [facility] Last Admin: 08/04/17 08:26 Dose: 1 cap Torsemide (Demadex*) 40 mg PO DAILY [facility] Last Admin: 08/04/17 08:43 Dose: 40 mg Trazodone HCl (Desyrel Tab*) 100 mg PO BEDTIME [facility] Last Admin: 08/03/17 20:37 Dose: 100 mg Warfarin Sodium (Coumadin Tab(*)) 4 mg PO SuTuThSa@1700 [facility] PRN Reason: Protocol Warfarin Sodium (Coumadin Tab(*)) 6 mg PO MoWeFr@1700 [facility] PRN Reason: Protocol Last Admin: 08/03/17 17:33 Dose: 6 mg Vital Signs - 8 hr 08/04/17 08/04/17 08/04/17 02:31 03:00 03:31 Temperature 97.0 F 96.8 F 96.8 F Pulse Rate 62 63 60 Respiratory 18 21 21 Rate Blood Pressure 124/77 132/75 113/72 (mmHg) O2 Sat by Pulse 94 95 91 Oximetry 08/04/17 08/04/17 08/04/17 04:00 04:31 05:00 Temperature 96.6 F 96.6 F 96.6 F Pulse Rate 64 60 63 Respiratory 19 19 20 Rate Blood Pressure 113/70 111/71 113/75 (mmHg) O2 Sat by Pulse 91 93 93 Oximetry 08/04/17 08/04/17 08/04/17 05:30 06:00 06:31 Temperature 96.6 F 97.0 F 97.5 F Pulse Rate 62 69 83 Respiratory 17 19 15 Rate Blood Pressure 137/90 153/101 164/89 (mmHg) O2 Sat by Pulse 96 97 97 Oximetry 08/04/17 08/04/17 08/04/17 07:00 07:31 08:00 Temperature 97.7 F 97.7 F 97.7 F Pulse Rate 75 82 67 Respiratory 21 19 18 Rate Blood Pressure 150/90 130/84 115/81 (mmHg) O2 Sat by Pulse 97 95 93 Oximetry 08/04/17 08/04/17 08/04/17 08:29 08:31 09:00 Temperature 97.5 F 97.5 F Pulse Rate 68 89 74 Respiratory 18 21 21 Rate Blood Pressure 143/93 (mmHg) O2 Sat by Pulse 96 94 96 Oximetry 08/04/17 09:01 Temperature 97.5 F Pulse Rate 85 Respiratory 20 Rate Blood Pressure 149/106 (mmHg) O2 Sat by Pulse 97 Oximetry Oxygen Devices in Use Now: Nasal Cannula Appearance: 66 yo f in nAD, aAOx3 Eyes: No Scleral Icterus, PERRLA Ears/Nose/Mouth/Throat: NL Teeth, Lips, Gums, Mucous Membranes Moist Neck: NL Appearance and Movements; NL JVP, Trachea Midline Respiratory: Symmetrical Chest Expansion and Respiratory Effort, - - mild upper lobe rhonchi R>L Cardiovascular: - - irregular Abdominal: - - distended, soft, NT, BS+, colostomy in place Lymphatic: No Cervical Adenopathy Extremities: No Clubbing, Cyanosis, - - trace pedal edema b/l Skin: No Rash or Ulcers, No Nodules or Sclerosis Neurological: Alert and Oriented x 3, NL Muscle Strength and Tone Result Diagrams: 08/04/17 05:30 08/04/17 05:30 Additional Lab and Data: Lab Results 08/03/17 08/03/17 08/03/17 Range/Units 12:00 12:00 12:00 WBC 7.3 (3.5-10.8) 10^3/ul RBC 4.65 (4.0-5.4) 10^6/ul Hgb 12.7 (12.0-16.0) g/dl Hct 39 (35-47) % MCV 84 (80-97) fL MCH 27 (27-31) pg MCHC 33 (31-36) g/dl RDW 18 H (10.5-15) % Plt Count 180 (150-450) 10^3/ul MPV 9 (7.4-10.4) um3 Neut % (Auto) 63.8 (38-83) % Lymph % (Auto) 17.9 L (25-47) % [place] % (Auto) 17.5 H (0-7) % Eos % (Auto) 0.1 (0-6) % Baso % (Auto) 0.7 (0-2) % Absolute Neuts (auto) 4.6 (1.5-7.7) 10^3/ul Absolute Lymphs (auto) 1.3 (1.0-4.8) 10^3/ul Absolute Monos (auto) 1.3 H (0-0.8) 10^3/ul Absolute Eos (auto) 0 (0-0.6) 10^3/ul Absolute Basos (auto) 0.1 (0-0.2) 10^3/ul Absolute Nucleated RBC 0 10^3/ul Nucleated RBC % 0 INR (Anticoag Therapy) 1.10 H (0.77-1.02) APTT 26.2 (26.0-36.3) seconds D-Dimer, Quantitative 492 H (Less Than 230) ng/mL Sodium (133-145) mmol/L Potassium (3.5-5.0) mmol/L Chloride (101-111) mmol/L Carbon Dioxide (22-32) mmol/L Anion Gap (2-11) mmol/L BUN (6-24) mg/dL Creatinine (0.51-0.95) mg/dL Est GFR ( Amer) (>60) Est GFR (Non-Af Amer) (>60) BUN/Creatinine Ratio (8-20) Glucose (70-100) mg/dL Lactic Acid (0.5-2.0) mmol/L Calcium (8.6-10.3) mg/dL Magnesium (1.9-2.7) mg/dL Total Bilirubin (0.2-1.0) mg/dL AST (13-39) U/L ALT (7-52) U/L Alkaline Phosphatase (34-104) U/L Total Creatine Kinase (10-223) U/L CK-MB (CK-2) (0.6-6.3) ng/mL Troponin I (<0.04) ng/mL C-Reactive Protein (< 5.00) mg/L B-Natriuretic Peptide 514 H ( - 100) pg/mL Total Protein (6.4-8.9) g/dL Albumin (3.2-5.2) g/dL Globulin (2-4) g/dL Albumin/Globulin Ratio (1-3) Lipase (11.0-82.0) U/L Procalcitonin (<0.6) ng/mL TSH (0.34-5.60) mcIU/mL Free T4 (0.61-1.12) ng/dL Free T3 (2.5-3.9) pg/mL Urine Color Urine Appearance Urine pH (5-9) Ur Specific [place] (1.010-1.030) Urine Protein (Negative) Urine Ketones (Negative) Urine Blood (Negative) Urine Nitrate (Negative) Urine Bilirubin (Negative) Urine Urobilinogen (Negative) Ur Leukocyte Esterase (Negative) Urine WBC (Auto) (Absent) Urine RBC (Auto) (Absent) Ur Squamous Epith Cells (Absent) Urine Bacteria (Absent) Urine Glucose (Negative) Digoxin (0.8-2.0) ng/ml 08/03/17 08/03/17 08/03/17 Range/Units 12:00 12:00 12:00 WBC (3.5-10.8) 10^3/ul RBC (4.0-5.4) 10^6/ul Hgb (12.0-16.0) g/dl Hct (35-47) % MCV (80-97) fL MCH (27-31) pg MCHC (31-36) g/dl RDW (10.5-15) % Plt Count (150-450) 10^3/ul MPV (7.4-10.4) um3 Neut % (Auto) (38-83) % Lymph % (Auto) (25-47) % [place] % (Auto) (0-7) % Eos % (Auto) (0-6) % Baso % (Auto) (0-2) % Absolute Neuts (auto) (1.5-7.7) 10^3/ul Absolute Lymphs (auto) (1.0-4.8) 10^3/ul Absolute Monos (auto) (0-0.8) 10^3/ul Absolute Eos (auto) (0-0.6) 10^3/ul Absolute Basos (auto) (0-0.2) 10^3/ul Absolute Nucleated RBC 10^3/ul Nucleated RBC % INR (Anticoag Therapy) (0.77-1.02) APTT (26.0-36.3) seconds D-Dimer, Quantitative (Less Than 230) ng/mL Sodium 132 L (133-145) mmol/L Potassium 3.7 (3.5-5.0) mmol/L Chloride 96 L (101-111) mmol/L Carbon Dioxide 30 (22-32) mmol/L Anion Gap 6 (2-11) mmol/L BUN 17 (6-24) mg/dL Creatinine 1.01 H (0.51-0.95) mg/dL Est GFR ( Amer) 70.5 (>60) Est GFR (Non-Af Amer) 54.8 (>60) BUN/Creatinine Ratio 16.8 (8-20) Glucose 128 H (70-100) mg/dL Lactic Acid 0.9 (0.5-2.0) mmol/L Calcium 9.1 (8.6-10.3) mg/dL Magnesium 1.7 L (1.9-2.7) mg/dL Total Bilirubin 0.80 (0.2-1.0) mg/dL AST 19 (13-39) U/L ALT 18 (7-52) U/L Alkaline Phosphatase 64 (34-104) U/L Total Creatine Kinase 48 (10-223) U/L CK-MB (CK-2) 0.5 L (0.6-6.3) ng/mL Troponin I 0.01 (<0.04) ng/mL C-Reactive Protein 35.23 H (< 5.00) mg/L B-Natriuretic Peptide ( - 100) pg/mL Total Protein 7.8 (6.4-8.9) g/dL Albumin 3.4 (3.2-5.2) g/dL Globulin 4.4 H (2-4) g/dL Albumin/Globulin Ratio 0.8 L (1-3) Lipase 271 H (11.0-82.0) U/L Procalcitonin < 0.1 (<0.6) ng/mL TSH 0.22 L (0.34-5.60) mcIU/mL Free T4 1.37 H (0.61-1.12) ng/dL Free T3 2.80 (2.5-3.9) pg/mL Urine Color Urine Appearance Urine pH (5-9) Ur Specific [place] (1.010-1.030) Urine Protein (Negative) Urine Ketones (Negative) Urine Blood (Negative) Urine Nitrate (Negative) Urine Bilirubin (Negative) Urine Urobilinogen (Negative) Ur Leukocyte Esterase (Negative) Urine WBC (Auto) (Absent) Urine RBC (Auto) (Absent) Ur Squamous Epith Cells (Absent) Urine Bacteria (Absent) Urine Glucose (Negative) Digoxin 0.6 L (0.8-2.0) ng/ml 03/14/18 Range/Units 12:40 WBC (3.5-10.8) 10^3/ul RBC (4.0-5.4) 10^6/ul Hgb (12.0-16.0) g/dl Hct (35-47) % MCV (80-97) fL MCH (27-31) pg MCHC (31-36) g/dl RDW (10.5-15) % Plt Count (150-450) 10^3/ul MPV (7.4-10.4) um3 Neut % (Auto) (38-83) % Lymph % (Auto) (25-47) % [place] % (Auto) (0-7) % Eos % (Auto) (0-6) % Baso % (Auto) (0-2) % Absolute Neuts (auto) (1.5-7.7) 10^3/ul Absolute Lymphs (auto) (1.0-4.8) 10^3/ul Absolute Monos (auto) (0-0.8) 10^3/ul Absolute Eos (auto) (0-0.6) 10^3/ul Absolute Basos (auto) (0-0.2) 10^3/ul Absolute Nucleated RBC 10^3/ul Nucleated RBC % INR (Anticoag Therapy) (0.77-1.02) APTT (26.0-36.3) seconds D-Dimer, Quantitative (Less Than 230) ng/mL Sodium (133-145) mmol/L Potassium (3.5-5.0) mmol/L Chloride (101-111) mmol/L Carbon Dioxide (22-32) mmol/L Anion Gap (2-11) mmol/L BUN (6-24) mg/dL Creatinine (0.51-0.95) mg/dL Est GFR ( Amer) (>60) Est GFR (Non-Af Amer) (>60) BUN/Creatinine Ratio (8-20) Glucose (70-100) mg/dL Lactic Acid (0.5-2.0) mmol/L Calcium (8.6-10.3) mg/dL Magnesium (1.9-2.7) mg/dL Total Bilirubin (0.2-1.0) mg/dL AST (13-39) U/L ALT (7-52) U/L Alkaline Phosphatase (34-104) U/L Total Creatine Kinase (10-223) U/L CK-MB (CK-2) (0.6-6.3) ng/mL Troponin I (<0.04) ng/mL C-Reactive Protein (< 5.00) mg/L B-Natriuretic Peptide ( - 100) pg/mL Total Protein (6.4-8.9) g/dL Albumin (3.2-5.2) g/dL Globulin (2-4) g/dL Albumin/Globulin Ratio (1-3) Lipase (11.0-82.0) U/L Procalcitonin (<0.6) ng/mL TSH (0.34-5.60) mcIU/mL Free T4 (0.61-1.12) ng/dL Free T3 (2.5-3.9) pg/mL Urine Color Yellow Urine Appearance Clear Urine pH 5.0 (5-9) Ur Specific [place] 1.021 (1.010-1.030) Urine Protein Negative (Negative) Urine Ketones Negative (Negative) Urine Blood 1+ A (Negative) Urine Nitrate Negative (Negative) Urine Bilirubin Negative (Negative) Urine Urobilinogen Negative (Negative) Ur Leukocyte Esterase Negative (Negative) Urine WBC (Auto) Trace(0-5/hpf) (Absent) Urine RBC (Auto) 1+(3-5/hpf) A (Absent) Ur Squamous Epith Cells Present A (Absent) Urine Bacteria Absent (Absent) Urine Glucose Negative (Negative) Digoxin (0.8-2.0) ng/ml Microbiology and Other Data: Microbiology 08/03/17 18:32 Nasal Screen MRSA (PCR)([facility]) - Final Nasal Mrsa Not Detected 08/03/17 14:35 Influenza Types A,B Antigen ([facility]) - Final Nasal Specimen received for Influenza A/B Molecular testing Assess/Plan/Problems-Billing Assessment: 66 yo female with h/o afib on coumadin, hx of distant PE, DM, colostomy(h/o bowel obstruction), porcine AVR, CABG who presents with SOB, Influenza B, A. fib with RVR - Patient Problems (1) Atrial fibrillation with RVR Comment: now rate controlled. Had several sinus pauses at night, one up to 5 sec Continue Cardizem, Digoxin(levels pending) and metoprolol (one dose was held this AM) cont coumadin. (2) Acute on chronic respiratory failure with hypoxemia Comment: now on 3 L 02, at home at 2.5 Resolved (3) COPD (chronic obstructive pulmonary disease) Comment: with exacerbation Cont Prednisone Improving Continue Spiriva, Dulera and oxygen (on home 2L [place]). (4) DM2 (diabetes mellitus, type 2) Comment: cont ISS diet controlled at home. (5) HTN (hypertension) Comment: controlled, continue cardizem and metoprolol. (6) Heart failure with preserved ejection fraction Comment: euvolemic, cont torsemide chronic diastolic (7) Hypothyroidism (acquired) Comment: Continue levothyroxine. TSH at 0.22 at admission, but will not adjust the Synthroid for now, recommend checking it in 1-2 weeks once pt feels better. (8) Influenza B Comment: [place] (9) DVT prophylaxis Comment: Lovenox till INR therapeutic, cont coumadin Status and Disposition: inpatient
[2017-08-04] MEDS: Metoprolol Tartrate TAB* 50 mg PO SCH ×2 (10:47→20:59)
[2017-08-04] MEDS: Digoxin TAB* 0.25 MG PO SCH (16:50)
[2017-08-04] MEDS ORDERED: Warfarin TAB(*) 2 MG PO SCH (17:00)
[2017-08-04] MEDS: Mometasone 220 MCG MDI INH SCH (17:55)
[2017-08-04] MEDS ORDERED: Metoprolol Tartrate TAB* 50 mg PO ONE (21:15)
[2017-08-04] MEDS: traZODone TAB* 50 MG TAB PO SCH (21:30)
[2017-08-04] MEDS: Pregabalin CAP(*) 50 MG PO SCH (21:30)
[2017-08-04] MEDS: ALPRAZolam TAB* 0.25 MG PO PRN (21:31)
[2017-08-05] MEDS: guaiFENesin/CODIEN 100MG-10MG* 5 ML UDC PO PRN (04:27)
[2017-08-05] MEDS: Levothyroxine TAB* 100 MCG TAB PO SCH (05:18)
[2017-08-05] MEDS: Acetaminophen TAB* 325 MG PO PRN (05:18)
[2017-08-05] MEDS: Enoxaparin(*) 100 MG/ML SYR SUBCUT SCH ×2 (05:19→17:42)
[2017-08-05 06:13] LABS: INR 0.99 (0.77-1.02)
[2017-08-05 06:15] LABS: ABS Basophils 0 10^3/ul (0-0.2); ABS Eosinophils 0 10^3/ul (0-0.6); ABS Monocytes 1.1 10^3/ul (0-0.8); ABS Neutrophils 7.3 10^3/ul (1.5-7.7); ABS Nucleated RBC 0 10^3/ul; Eosinophil % 0 % (0-6); Hematocrit 39 % (35-47); Hemoglobin 12.6 g/dl (12.0-16.0); Lymphocyte % 10.7 % (25-47); Mean Corpuscular HGB Conc 32 g/dl (31-36); Mean Corpuscular Hemoglobin 27 pg (27-31); Mean Corpuscular Volume 85 fL (80-97); Mean Platelet Volume 9 um3 (7.4-10.4); Nucleated Red Blood Cells % 0; Platelet Count 169 10^3/ul (150-450); Red Blood Count 4.59 10^6/ul (4.0-5.4); Red Cell Distribution Width 17 % (10.5-15); White Blood Count 9.3 10^3/ul (3.5-10.8)
[2017-08-05 06:23] LABS: EGFR Non-African American 56.1 (>60)
[2017-08-05] MEDS: Insulin LISPRO* 1 UNITS UNIT SUBCUT SCH ×4 (07:40→21:33)
[2017-08-05] MEDS ORDERED: Metoprolol Tartrate TAB* 50 mg PO SCH ×2 (07:45→21:00)
[2017-08-05] MEDS: Tiotropium CAP.INH* CAP.INH/18 MCG (USE ORDER SET !) INH SCH (08:24)
--- NOTE | 2017-08-05 08:49 | PN ---
Subjective Date of Service: 08/05/17 Interval History: Pt has had intermittent 2-3 sec pauses despite Lopressor dose lowered to 50 mg last night. still feels tired and weak, no other new complaints. Objective Active Medications: Acetaminophen (Tylenol Tab*) 650 mg PO Q4H PRN PRN Reason: FEVER/PAIN Last Admin: 08/05/17 05:18 Dose: 650 mg Hydrocodone Bitart/Acetaminophen ([place] 5-325 Tab*) 1 tab PO Q4H PRN PRN Reason: PAIN Last Admin: 08/03/17 20:36 Dose: 1 tab Albuterol (Ventolin Hfa Inhaler*) 2 puff INH Q4H PRN PRN Reason: SOB/WHEEZING Last Admin: 08/05/17 04:19 Dose: 2 puff Alprazolam (Xanax Tab*) 0.25 mg PO Q8H PRN PRN Reason: ANXIETY Last Admin: 08/04/17 21:31 Dose: 0.25 mg Aspirin (Aspirin Ec Low Dose*) 81 mg PO DAILY [facility] Last Admin: 08/04/17 08:43 Dose: 81 mg Atorvastatin Calcium (Lipitor*) 80 mg PO DAILY [facility] Last Admin: 08/04/17 08:42 Dose: 80 mg Dextrose (D50w Syringe 50 Ml*) 12.5 gm IV PUSH .FOR FS < 60 - SS PRN PRN Reason: FS < 60 Digoxin (Lanoxin Tab*) 0.25 mg PO 1700 [facility] Last Admin: 08/04/17 16:50 Dose: 0.25 mg Diltiazem HCl (Cardizem Cd Cap*) 240 mg PO DAILY [facility] Last Admin: 08/04/17 08:42 Dose: 240 mg Ezetimibe (Zetia Tab*) 10 mg PO DAILY [facility] Last Admin: 08/04/17 08:42 Dose: 10 mg Enoxaparin Sodium (Lovenox(*)) 100 mg SUBCUT 0600,1800 [facility] Last Admin: 08/05/17 05:19 Dose: 100 mg Ferrous Sulfate (Ferrous Sulfate Tab*) 325 mg PO DAILY [facility] Last Admin: 08/04/17 08:42 Dose: 325 mg Guaifenesin/Codeine Phosphate (Robitussin Ac 100mg-10mg*) 5 ml PO Q6H PRN PRN Reason: COUGH Last Admin: 08/05/17 04:27 Dose: 5 ml Insulin Human Lispro (Humalog*) 0 units SUBCUT ACHS JL PRN Reason: Protocol Last Admin: 08/05/17 07:40 Dose: Not Given Levothyroxine Sodium (Synthroid Tab*) 200 mcg PO DAILY@0600 [facility] Last Admin: 08/05/17 05:18 Dose: 200 mcg Metoprolol Tartrate (Lopressor Tab*) 50 mg PO BID [facility] Mometasone Furoate (Asmanex 220 Mcg Mdi *) 1 puff INH QPM [facility] Last Admin: 08/04/17 17:55 Dose: 1 puff Ondansetron HCl (Zofran Inj*) 4 mg IV Q4H PRN PRN Reason: NAUSEA/VOMITING Last Admin: 08/03/17 18:16 Dose: 4 mg Oseltamivir Phosphate (Tamiflu Cap*) 75 mg PO BID [facility] Stop: 08/08/17 09:01 Last Admin: 08/04/17 21:29 Dose: 75 mg Pharmacy Profile Note (Coumadin Daily Reminder*) 0 note FOLLOW UP 1700 [facility] Last Admin: 08/04/17 16:51 Dose: 1 note Prednisone (Deltasone Tab*) 50 mg PO DAILY [facility] Pregabalin (Lyrica Cap(*)) 50 mg PO BEDTIME [facility] Last Admin: 08/04/17 21:30 Dose: 50 mg Sertraline HCl (Zoloft*) 200 mg PO DAILY [facility] Last Admin: 08/04/17 08:42 Dose: 200 mg Tiotropium [place] (Spiriva Cap.Inh*) 1 cap INH DAILY [facility] Last Admin: 08/05/17 08:24 Dose: 1 cap Torsemide (Demadex*) 40 mg PO DAILY [facility] Last Admin: 08/04/17 08:43 Dose: 40 mg Trazodone HCl (Desyrel Tab*) 100 mg PO BEDTIME [facility] Last Admin: 08/04/17 21:30 Dose: 100 mg Warfarin Sodium (Coumadin Tab(*)) 7 mg PO DAILY@1700 [facility] PRN Reason: Protocol Vital Signs - 8 hr 08/05/17 08/05/17 08/05/17 00:45 01:00 01:16 Temperature Pulse Rate 70 75 77 Respiratory 22 19 20 Rate Blood Pressure 101/66 89/53 81/67 (mmHg) O2 Sat by Pulse 98 98 95 Oximetry 08/05/17 08/05/17 08/05/17 01:30 01:45 02:00 Temperature Pulse Rate 58 44 70 Respiratory 19 19 19 Rate Blood Pressure 92/59 85/49 101/66 (mmHg) O2 Sat by Pulse 96 95 94 Oximetry 08/05/17 08/05/17 08/05/17 02:15 02:31 02:45 Temperature Pulse Rate 60 45 45 Respiratory 21 19 19 Rate Blood Pressure 91/51 88/52 89/57 (mmHg) O2 Sat by Pulse 95 94 95 Oximetry 08/05/17 08/05/17 08/05/17 03:00 03:30 03:46 Temperature Pulse Rate 51 59 47 Respiratory 17 19 20 Rate Blood Pressure 109/77 106/55 106/60 (mmHg) O2 Sat by Pulse 95 95 96 Oximetry 08/05/17 08/05/17 08/05/17 04:00 04:15 04:31 Temperature 98.2 F Pulse Rate 61 46 86 Respiratory 17 16 22 Rate Blood Pressure 107/67 98/65 97/72 (mmHg) O2 Sat by Pulse 94 96 95 Oximetry 08/05/17 08/05/17 08/05/17 04:46 05:00 05:01 Temperature Pulse Rate 73 65 63 Respiratory 22 20 20 Rate Blood Pressure 144/113 119/62 (mmHg) O2 Sat by Pulse 95 94 94 Oximetry 08/05/17 08/05/17 08/05/17 05:15 05:30 05:45 Temperature Pulse Rate 81 80 74 Respiratory 22 23 21 Rate Blood Pressure 112/73 120/77 107/79 (mmHg) O2 Sat by Pulse 94 94 92 Oximetry 08/05/17 08/05/17 08/05/17 06:00 07:33 08:26 Temperature 98.1 F Pulse Rate 75 87 Respiratory 17 17 Rate Blood Pressure 99/68 (mmHg) O2 Sat by Pulse 94 97 Oximetry Oxygen Devices in Use Now: Nasal Cannula Appearance: 66 yo F in nAD, AAOx3 Eyes: No Scleral Icterus, PERRLA Ears/Nose/Mouth/Throat: NL Teeth, Lips, Gums, Mucous Membranes Moist Neck: NL Appearance and Movements; NL JVP, Trachea Midline Respiratory: Symmetrical Chest Expansion and Respiratory Effort, - - rhonchi in r lung Cardiovascular: - - irregular Abdominal: NL Sounds; No Tenderness; No Distention, No Hepatosplenomegaly, - - colostomy in place,bag with brown stool in it Extremities: No Edema, No Clubbing, Cyanosis Skin: No Rash or Ulcers, No Nodules or Sclerosis, - - venous staisis discoloration b/l LEs' Neurological: Alert and Oriented x 3, NL Muscle Strength and Tone Result Diagrams: 08/05/17 05:55 08/05/17 05:55 Additional Lab and Data: Lab Results 08/03/17 08/03/17 08/03/17 Range/Units 12:00 12:00 12:00 WBC 7.3 (3.5-10.8) 10^3/ul RBC 4.65 (4.0-5.4) 10^6/ul Hgb 12.7 (12.0-16.0) g/dl Hct 39 (35-47) % MCV 84 (80-97) fL MCH 27 (27-31) pg MCHC 33 (31-36) g/dl RDW 18 H (10.5-15) % Plt Count 180 (150-450) 10^3/ul MPV 9 (7.4-10.4) um3 Neut % (Auto) 63.8 (38-83) % Lymph % (Auto) 17.9 L (25-47) % [place] % (Auto) 17.5 H (0-7) % Eos % (Auto) 0.1 (0-6) % Baso % (Auto) 0.7 (0-2) % Absolute Neuts (auto) 4.6 (1.5-7.7) 10^3/ul Absolute Lymphs (auto) 1.3 (1.0-4.8) 10^3/ul Absolute Monos (auto) 1.3 H (0-0.8) 10^3/ul Absolute Eos (auto) 0 (0-0.6) 10^3/ul Absolute Basos (auto) 0.1 (0-0.2) 10^3/ul Absolute Nucleated RBC 0 10^3/ul Nucleated RBC % 0 INR (Anticoag Therapy) 1.10 H (0.77-1.02) APTT 26.2 (26.0-36.3) seconds D-Dimer, Quantitative 492 H (Less Than 230) ng/mL Sodium (133-145) mmol/L Potassium (3.5-5.0) mmol/L Chloride (101-111) mmol/L Carbon Dioxide (22-32) mmol/L Anion Gap (2-11) mmol/L BUN (6-24) mg/dL Creatinine (0.51-0.95) mg/dL Est GFR ( Amer) (>60) Est GFR (Non-Af Amer) (>60) BUN/Creatinine Ratio (8-20) Glucose (70-100) mg/dL Lactic Acid (0.5-2.0) mmol/L Calcium (8.6-10.3) mg/dL Magnesium (1.9-2.7) mg/dL Total Bilirubin (0.2-1.0) mg/dL AST (13-39) U/L ALT (7-52) U/L Alkaline Phosphatase (34-104) U/L Total Creatine Kinase (10-223) U/L CK-MB (CK-2) (0.6-6.3) ng/mL Troponin I (<0.04) ng/mL C-Reactive Protein (< 5.00) mg/L B-Natriuretic Peptide 514 H ( - 100) pg/mL Total Protein (6.4-8.9) g/dL Albumin (3.2-5.2) g/dL Globulin (2-4) g/dL Albumin/Globulin Ratio (1-3) Lipase (11.0-82.0) U/L Procalcitonin (<0.6) ng/mL TSH (0.34-5.60) mcIU/mL Free T4 (0.61-1.12) ng/dL Free T3 (2.5-3.9) pg/mL Urine Color Urine Appearance Urine pH (5-9) Ur Specific [place] (1.010-1.030) Urine Protein (Negative) Urine Ketones (Negative) Urine Blood (Negative) Urine Nitrate (Negative) Urine Bilirubin (Negative) Urine Urobilinogen (Negative) Ur Leukocyte Esterase (Negative) Urine WBC (Auto) (Absent) Urine RBC (Auto) (Absent) Ur Squamous Epith Cells (Absent) Urine Bacteria (Absent) Urine Glucose (Negative) Digoxin (0.8-2.0) ng/ml 08/03/17 08/03/17 08/03/17 Range/Units 12:00 12:00 12:00 WBC (3.5-10.8) 10^3/ul RBC (4.0-5.4) 10^6/ul Hgb (12.0-16.0) g/dl Hct (35-47) % MCV (80-97) fL MCH (27-31) pg MCHC (31-36) g/dl RDW (10.5-15) % Plt Count (150-450) 10^3/ul MPV (7.4-10.4) um3 Neut % (Auto) (38-83) % Lymph % (Auto) (25-47) % [place] % (Auto) (0-7) % Eos % (Auto) (0-6) % Baso % (Auto) (0-2) % Absolute Neuts (auto) (1.5-7.7) 10^3/ul Absolute Lymphs (auto) (1.0-4.8) 10^3/ul Absolute Monos (auto) (0-0.8) 10^3/ul Absolute Eos (auto) (0-0.6) 10^3/ul Absolute Basos (auto) (0-0.2) 10^3/ul Absolute Nucleated RBC 10^3/ul Nucleated RBC % INR (Anticoag Therapy) (0.77-1.02) APTT (26.0-36.3) seconds D-Dimer, Quantitative (Less Than 230) ng/mL Sodium 132 L (133-145) mmol/L Potassium 3.7 (3.5-5.0) mmol/L Chloride 96 L (101-111) mmol/L Carbon Dioxide 30 (22-32) mmol/L Anion Gap 6 (2-11) mmol/L BUN 17 (6-24) mg/dL Creatinine 1.01 H (0.51-0.95) mg/dL Est GFR ( Amer) 70.5 (>60) Est GFR (Non-Af Amer) 54.8 (>60) BUN/Creatinine Ratio 16.8 (8-20) Glucose 128 H (70-100) mg/dL Lactic Acid 0.9 (0.5-2.0) mmol/L Calcium 9.1 (8.6-10.3) mg/dL Magnesium 1.7 L (1.9-2.7) mg/dL Total Bilirubin 0.80 (0.2-1.0) mg/dL AST 19 (13-39) U/L ALT 18 (7-52) U/L Alkaline Phosphatase 64 (34-104) U/L Total Creatine Kinase 48 (10-223) U/L CK-MB (CK-2) 0.5 L (0.6-6.3) ng/mL Troponin I 0.01 (<0.04) ng/mL C-Reactive Protein 35.23 H (< 5.00) mg/L B-Natriuretic Peptide ( - 100) pg/mL Total Protein 7.8 (6.4-8.9) g/dL Albumin 3.4 (3.2-5.2) g/dL Globulin 4.4 H (2-4) g/dL Albumin/Globulin Ratio 0.8 L (1-3) Lipase 271 H (11.0-82.0) U/L Procalcitonin < 0.1 (<0.6) ng/mL TSH 0.22 L (0.34-5.60) mcIU/mL Free T4 1.37 H (0.61-1.12) ng/dL Free T3 2.80 (2.5-3.9) pg/mL Urine Color Urine Appearance Urine pH (5-9) Ur Specific [place] (1.010-1.030) Urine Protein (Negative) Urine Ketones (Negative) Urine Blood (Negative) Urine Nitrate (Negative) Urine Bilirubin (Negative) Urine Urobilinogen (Negative) Ur Leukocyte Esterase (Negative) Urine WBC (Auto) (Absent) Urine RBC (Auto) (Absent) Ur Squamous Epith Cells (Absent) Urine Bacteria (Absent) Urine Glucose (Negative) Digoxin 0.6 L (0.8-2.0) ng/ml 08/03/17 Range/Units 12:40 WBC (3.5-10.8) 10^3/ul RBC (4.0-5.4) 10^6/ul Hgb (12.0-16.0) g/dl Hct (35-47) % MCV (80-97) fL MCH (27-31) pg MCHC (31-36) g/dl RDW (10.5-15) % Plt Count (150-450) 10^3/ul MPV (7.4-10.4) um3 Neut % (Auto) (38-83) % Lymph % (Auto) (25-47) % [place] % (Auto) (0-7) % Eos % (Auto) (0-6) % Baso % (Auto) (0-2) % Absolute Neuts (auto) (1.5-7.7) 10^3/ul Absolute Lymphs (auto) (1.0-4.8) 10^3/ul Absolute Monos (auto) (0-0.8) 10^3/ul Absolute Eos (auto) (0-0.6) 10^3/ul Absolute Basos (auto) (0-0.2) 10^3/ul Absolute Nucleated RBC 10^3/ul Nucleated RBC % INR (Anticoag Therapy) (0.77-1.02) APTT (26.0-36.3) seconds D-Dimer, Quantitative (Less Than 230) ng/mL Sodium (133-145) mmol/L Potassium (3.5-5.0) mmol/L Chloride (101-111) mmol/L Carbon Dioxide (22-32) mmol/L Anion Gap (2-11) mmol/L BUN (6-24) mg/dL Creatinine (0.51-0.95) mg/dL Est GFR ( Amer) (>60) Est GFR (Non-Af Amer) (>60) BUN/Creatinine Ratio (8-20) Glucose (70-100) mg/dL Lactic Acid (0.5-2.0) mmol/L Calcium (8.6-10.3) mg/dL Magnesium (1.9-2.7) mg/dL Total Bilirubin (0.2-1.0) mg/dL AST (13-39) U/L ALT (7-52) U/L Alkaline Phosphatase (34-104) U/L Total Creatine Kinase (10-223) U/L CK-MB (CK-2) (0.6-6.3) ng/mL Troponin I (<0.04) ng/mL C-Reactive Protein (< 5.00) mg/L B-Natriuretic Peptide ( - 100) pg/mL Total Protein (6.4-8.9) g/dL Albumin (3.2-5.2) g/dL Globulin (2-4) g/dL Albumin/Globulin Ratio (1-3) Lipase (11.0-82.0) U/L Procalcitonin (<0.6) ng/mL TSH (0.34-5.60) mcIU/mL Free T4 (0.61-1.12) ng/dL Free T3 (2.5-3.9) pg/mL Urine Color Yellow Urine Appearance Clear Urine pH 5.0 (5-9) Ur Specific [place] 1.021 (1.010-1.030) Urine Protein Negative (Negative) Urine Ketones Negative (Negative) Urine Blood 1+ A (Negative) Urine Nitrate Negative (Negative) Urine Bilirubin Negative (Negative) Urine Urobilinogen Negative (Negative) Ur Leukocyte Esterase Negative (Negative) Urine WBC (Auto) Trace(0-5/hpf) (Absent) Urine RBC (Auto) 1+(3-5/hpf) A (Absent) Ur Squamous Epith Cells Present A (Absent) Urine Bacteria Absent (Absent) Urine Glucose Negative (Negative) Digoxin (0.8-2.0) ng/ml Microbiology and Other Data: Microbiology 08/03/17 18:32 Nasal Screen MRSA (PCR)([facility]) - Final Nasal Mrsa Not Detected 08/03/17 14:35 Influenza Types A,B Antigen ([facility]) - Final Nasal Specimen received for Influenza A/B Molecular testing Assess/Plan/Problems-Billing Assessment: 66 yo female with h/o afib on coumadin, hx of distant PE, DM, colostomy(h/o bowel obstruction), porcine AVR, CABG who presents with SOB, Influenza B, A. fib with RVR - Patient Problems (1) Atrial fibrillation with RVR Comment: now rate controlled. Had several sinus pauses at night, one up to 3 sec Continue Cardizem, Digoxin, and metoprolol will be held cont coumadin. (2) Acute on chronic respiratory failure with hypoxemia Comment: now on 3 L 02, at home at 2.5 Resolved (3) COPD (chronic obstructive pulmonary disease) Comment: with exacerbation Cont Prednisone Improving Continue Spiriva, Dulera and oxygen (on home 2L NC). (4) DM2 (diabetes mellitus, type 2) Comment: cont ISS diet controlled at home. (5) HTN (hypertension) Comment: controlled, continue cardizem and metoprolol. (6) Heart failure with preserved ejection fraction Comment: euvolemic, cont torsemide chronic diastolic (7) Hypothyroidism (acquired) Comment: Continue levothyroxine. TSH at 0.22 at admission, but will not adjust the Synthroid for now, recommend checking it in 1-2 weeks once pt feels better. (8) Influenza B Comment: [place] clinically pt has Influneza B pneumonia of r lung-suspect it was present at admission (9) DVT prophylaxis Comment: Lovenox till INR therapeutic, cont coumadin (dose increased to 7 mg today) Status and Disposition: inpatient
[2017-08-05] MEDS: Diltiazem CD CAP* 240 MG PO SCH (09:05)
[2017-08-05] MEDS: Torsemide TAB* 20 MG PO SCH (09:06)
[2017-08-05] MEDS: Oseltamivir CAP* 75 MG CAP PO SCH ×2 (09:06→21:18)
[2017-08-05] MEDS: Sertraline* 100 MG TAB PO SCH (09:06)
[2017-08-05] MEDS: Aspirin EC Low Dose* 81 MG TAB.EC PO SCH (09:06)
[2017-08-05] MEDS: Atorvastatin* 80 MG TAB PO SCH (09:07)
[2017-08-05] MEDS: Ezetimibe TAB* 10 MG PO SCH (09:07)
[2017-08-05] MEDS: Ferrous Sulfate TAB* 325 MG PO SCH (09:07)
[2017-08-05] MEDS: predniSONE TAB* 50 MG PO SCH (09:07)
[2017-08-05] MEDS ORDERED: Metoprolol Tartrate TAB* 50 mg ONE (14:36)
[2017-08-05] MEDS ORDERED: Warfarin TAB(*) 3 MG PO SCH (17:00)
[2017-08-05] MEDS ORDERED: Warfarin TAB(*) 7.5 MG PO SCH (17:00)
[2017-08-05] MEDS ORDERED: Warfarin TAB(*) 4 MG PO SCH (17:00)
[2017-08-05] MEDS: Digoxin TAB* 0.25 MG PO SCH (17:41)
[2017-08-05] MEDS: Mometasone 220 MCG MDI INH SCH (19:21)
[2017-08-05] MEDS: HYDROcodone/ACETAMIN 5-325 MG* 1 TAB PO PRN (19:58)
[2017-08-05] MEDS: Pregabalin CAP(*) 50 MG PO SCH (21:18)
[2017-08-05] MEDS: traZODone TAB* 50 MG TAB PO SCH (21:19)
[2017-08-06] MEDS: Levothyroxine TAB* 100 MCG TAB PO SCH (06:10)
[2017-08-06] MEDS: Enoxaparin(*) 100 MG/ML SYR SUBCUT SCH ×2 (06:10→17:44)
[2017-08-06 06:43] LABS: INR 1.06 (0.77-1.02)
[2017-08-06] MEDS: Insulin LISPRO* 1 UNITS UNIT SUBCUT SCH ×4 (08:51→21:33)
--- NOTE | 2017-08-06 09:02 | PN ---
Subjective Date of Service: 08/06/17 Interval History: Pt continued to have sinus pauses at night. Gets tachycardic when off Lopressor , asymptomatic when sinus pauses occur. Today feels "weak all over", cough improving Objective Active Medications: Acetaminophen (Tylenol Tab*) 650 mg PO Q4H PRN PRN Reason: FEVER/PAIN Last Admin: 08/05/17 05:18 Dose: 650 mg Hydrocodone Bitart/Acetaminophen ([place] 5-325 Tab*) 1 tab PO Q4H PRN PRN Reason: PAIN Last Admin: 08/05/17 19:58 Dose: 1 tab Albuterol (Ventolin Hfa Inhaler*) 2 puff INH Q4H PRN PRN Reason: SOB/WHEEZING Last Admin: 08/05/17 04:19 Dose: 2 puff Alprazolam (Xanax Tab*) 0.25 mg PO Q8H PRN PRN Reason: ANXIETY Last Admin: 08/04/17 21:31 Dose: 0.25 mg Aspirin (Aspirin Ec Low Dose*) 81 mg PO DAILY [facility] Last Admin: 08/05/17 09:06 Dose: 81 mg Atorvastatin Calcium (Lipitor*) 80 mg PO DAILY [facility] Last Admin: 08/05/17 09:07 Dose: 80 mg Dextrose (D50w Syringe 50 Ml*) 12.5 gm IV PUSH .FOR FS < 60 - SS PRN PRN Reason: FS < 60 Digoxin (Lanoxin Tab*) 0.25 mg PO 1700 [facility] Last Admin: 08/05/17 17:41 Dose: 0.25 mg Diltiazem HCl (Cardizem Cd Cap*) 240 mg PO DAILY [facility] Last Admin: 08/05/17 09:05 Dose: 240 mg Ezetimibe (Zetia Tab*) 10 mg PO DAILY [facility] Last Admin: 08/05/17 09:07 Dose: 10 mg Enoxaparin Sodium (Lovenox(*)) 100 mg SUBCUT 0600,1800 [facility] Last Admin: 08/06/17 06:10 Dose: 100 mg Ferrous Sulfate (Ferrous Sulfate Tab*) 325 mg PO DAILY [facility] Last Admin: 08/05/17 09:07 Dose: 325 mg Guaifenesin/Codeine Phosphate (Robitussin Ac 100mg-10mg*) 5 ml PO Q6H PRN PRN Reason: COUGH Last Admin: 08/05/17 04:27 Dose: 5 ml Insulin Human Lispro (Humalog*) 0 units SUBCUT ACHS JL PRN Reason: Protocol Last Admin: 08/06/17 08:51 Dose: Not Given Levothyroxine Sodium (Synthroid Tab*) 200 mcg PO DAILY@0600 [facility] Last Admin: 08/06/17 06:10 Dose: 200 mcg Metoprolol Tartrate (Lopressor Tab*) 25 mg PO Q12HR [facility] Mometasone Furoate (Asmanex 220 Mcg Mdi *) 1 puff INH QPM [facility] Last Admin: 08/05/17 19:21 Dose: 1 puff Ondansetron HCl (Zofran Inj*) 4 mg IV Q4H PRN PRN Reason: NAUSEA/VOMITING Last Admin: 08/03/17 18:16 Dose: 4 mg Oseltamivir Phosphate (Tamiflu Cap*) 75 mg PO BID [facility] Stop: 08/08/17 09:01 Last Admin: 08/05/17 21:18 Dose: 75 mg Pharmacy Profile Note (Coumadin Daily Reminder*) 0 note FOLLOW UP 1700 [facility] Last Admin: 08/05/17 19:52 Dose: Not Given Prednisone (Deltasone Tab*) 50 mg PO DAILY [facility] Last Admin: 08/05/17 09:07 Dose: 50 mg Pregabalin (Lyrica Cap(*)) 50 mg PO BEDTIME [facility] Last Admin: 08/05/17 21:18 Dose: 50 mg Sertraline HCl (Zoloft*) 200 mg PO DAILY [facility] Last Admin: 08/05/17 09:06 Dose: 200 mg Tiotropium [place] (Spiriva Cap.Inh*) 1 cap INH DAILY [facility] Last Admin: 08/05/17 08:24 Dose: 1 cap Torsemide (Demadex*) 40 mg PO DAILY [facility] Last Admin: 08/05/17 09:06 Dose: 40 mg Trazodone HCl (Desyrel Tab*) 100 mg PO BEDTIME [facility] Last Admin: 08/05/17 21:19 Dose: 100 mg Warfarin Sodium (Coumadin Tab(*)) 4 mg PO 1700 [facility] Last Admin: 08/05/17 17:41 Dose: 4 mg Warfarin Sodium (Coumadin Tab(*)) 3 mg PO 1700 [facility] Last Admin: 08/05/17 17:41 Dose: 3 mg Vital Signs - 8 hr 08/06/17 08/06/17 08/06/17 01:00 01:52 02:00 Temperature Pulse Rate 57 51 50 Respiratory 16 21 18 Rate Blood Pressure 96/64 90/59 (mmHg) O2 Sat by Pulse 99 96 97 Oximetry 08/06/17 08/06/17 08/06/17 02:59 03:00 03:02 Temperature Pulse Rate 49 49 53 Respiratory 12 13 16 Rate Blood Pressure 94/55 94/53 (mmHg) O2 Sat by Pulse 90 85 87 Oximetry 08/06/17 08/06/17 08/06/17 03:35 03:58 04:00 Temperature 97.2 F Pulse Rate 47 71 56 Respiratory 21 27 22 Rate Blood Pressure 105/55 100/55 111/56 (mmHg) O2 Sat by Pulse 99 99 99 Oximetry 08/06/17 08/06/17 08/06/17 04:52 05:00 05:44 Temperature Pulse Rate 49 57 63 Respiratory 20 16 14 Rate Blood Pressure 111/60 110/72 110/68 (mmHg) O2 Sat by Pulse 98 99 99 Oximetry 08/06/17 08/06/17 06:00 07:00 Temperature Pulse Rate 61 75 Respiratory 15 25 Rate Blood Pressure 115/75 126/77 (mmHg) O2 Sat by Pulse 98 95 Oximetry Oxygen Devices in Use Now: Nasal Cannula - at 3L Appearance: 66 yo f in nAD, aAOx3 Eyes: No Scleral Icterus, PERRLA Ears/Nose/Mouth/Throat: NL Teeth, Lips, Gums, Mucous Membranes Moist Neck: NL Appearance and Movements; NL JVP, Trachea Midline Respiratory: Symmetrical Chest Expansion and Respiratory Effort, - - rhonchi in r lung -improving Cardiovascular: NL Sounds; No Murmurs; No JVD, - - irregular Abdominal: NL Sounds; No Tenderness; No Distention Lymphatic: No Cervical Adenopathy Extremities: No Edema, No Clubbing, Cyanosis Skin: - - venous staiss skin discoloration b/l distal LE's Neurological: Alert and Oriented x 3, NL Muscle Strength and Tone Result Diagrams: 08/05/17 05:55 08/05/17 05:55 Additional Lab and Data: Lab Results 08/03/17 08/03/17 08/03/17 Range/Units 12:00 12:00 12:00 WBC 7.3 (3.5-10.8) 10^3/ul RBC 4.65 (4.0-5.4) 10^6/ul Hgb 12.7 (12.0-16.0) g/dl Hct 39 (35-47) % MCV 84 (80-97) fL MCH 27 (27-31) pg MCHC 33 (31-36) g/dl RDW 18 H (10.5-15) % Plt Count 180 (150-450) 10^3/ul MPV 9 (7.4-10.4) um3 Neut % (Auto) 63.8 (38-83) % Lymph % (Auto) 17.9 L (25-47) % [place] % (Auto) 17.5 H (0-7) % Eos % (Auto) 0.1 (0-6) % Baso % (Auto) 0.7 (0-2) % Absolute Neuts (auto) 4.6 (1.5-7.7) 10^3/ul Absolute Lymphs (auto) 1.3 (1.0-4.8) 10^3/ul Absolute Monos (auto) 1.3 H (0-0.8) 10^3/ul Absolute Eos (auto) 0 (0-0.6) 10^3/ul Absolute Basos (auto) 0.1 (0-0.2) 10^3/ul Absolute Nucleated RBC 0 10^3/ul Nucleated RBC % 0 INR (Anticoag Therapy) 1.10 H (0.77-1.02) APTT 26.2 (26.0-36.3) seconds D-Dimer, Quantitative 492 H (Less Than 230) ng/mL Sodium (133-145) mmol/L Potassium (3.5-5.0) mmol/L Chloride (101-111) mmol/L Carbon Dioxide (22-32) mmol/L Anion Gap (2-11) mmol/L BUN (6-24) mg/dL Creatinine (0.51-0.95) mg/dL Est GFR ( Amer) (>60) Est GFR (Non-Af Amer) (>60) BUN/Creatinine Ratio (8-20) Glucose (70-100) mg/dL Lactic Acid (0.5-2.0) mmol/L Calcium (8.6-10.3) mg/dL Magnesium (1.9-2.7) mg/dL Total Bilirubin (0.2-1.0) mg/dL AST (13-39) U/L ALT (7-52) U/L Alkaline Phosphatase (34-104) U/L Total Creatine Kinase (10-223) U/L CK-MB (CK-2) (0.6-6.3) ng/mL Troponin I (<0.04) ng/mL C-Reactive Protein (< 5.00) mg/L B-Natriuretic Peptide 514 H ( - 100) pg/mL Total Protein (6.4-8.9) g/dL Albumin (3.2-5.2) g/dL Globulin (2-4) g/dL Albumin/Globulin Ratio (1-3) Lipase (11.0-82.0) U/L Procalcitonin (<0.6) ng/mL TSH (0.34-5.60) mcIU/mL Free T4 (0.61-1.12) ng/dL Free T3 (2.5-3.9) pg/mL Urine Color Urine Appearance Urine pH (5-9) Ur Specific [place] (1.010-1.030) Urine Protein (Negative) Urine Ketones (Negative) Urine Blood (Negative) Urine Nitrate (Negative) Urine Bilirubin (Negative) Urine Urobilinogen (Negative) Ur Leukocyte Esterase (Negative) Urine WBC (Auto) (Absent) Urine RBC (Auto) (Absent) Ur Squamous Epith Cells (Absent) Urine Bacteria (Absent) Urine Glucose (Negative) Digoxin (0.8-2.0) ng/ml 08/03/17 08/03/17 08/03/17 Range/Units 12:00 12:00 12:00 WBC (3.5-10.8) 10^3/ul RBC (4.0-5.4) 10^6/ul Hgb (12.0-16.0) g/dl Hct (35-47) % MCV (80-97) fL MCH (27-31) pg MCHC (31-36) g/dl RDW (10.5-15) % Plt Count (150-450) 10^3/ul MPV (7.4-10.4) um3 Neut % (Auto) (38-83) % Lymph % (Auto) (25-47) % [place] % (Auto) (0-7) % Eos % (Auto) (0-6) % Baso % (Auto) (0-2) % Absolute Neuts (auto) (1.5-7.7) 10^3/ul Absolute Lymphs (auto) (1.0-4.8) 10^3/ul Absolute Monos (auto) (0-0.8) 10^3/ul Absolute Eos (auto) (0-0.6) 10^3/ul Absolute Basos (auto) (0-0.2) 10^3/ul Absolute Nucleated RBC 10^3/ul Nucleated RBC % INR (Anticoag Therapy) (0.77-1.02) APTT (26.0-36.3) seconds D-Dimer, Quantitative (Less Than 230) ng/mL Sodium 132 L (133-145) mmol/L Potassium 3.7 (3.5-5.0) mmol/L Chloride 96 L (101-111) mmol/L Carbon Dioxide 30 (22-32) mmol/L Anion Gap 6 (2-11) mmol/L BUN 17 (6-24) mg/dL Creatinine 1.01 H (0.51-0.95) mg/dL Est GFR ( Amer) 70.5 (>60) Est GFR (Non-Af Amer) 54.8 (>60) BUN/Creatinine Ratio 16.8 (8-20) Glucose 128 H (70-100) mg/dL Lactic Acid 0.9 (0.5-2.0) mmol/L Calcium 9.1 (8.6-10.3) mg/dL Magnesium 1.7 L (1.9-2.7) mg/dL Total Bilirubin 0.80 (0.2-1.0) mg/dL AST 19 (13-39) U/L ALT 18 (7-52) U/L Alkaline Phosphatase 64 (34-104) U/L Total Creatine Kinase 48 (10-223) U/L CK-MB (CK-2) 0.5 L (0.6-6.3) ng/mL Troponin I 0.01 (<0.04) ng/mL C-Reactive Protein 35.23 H (< 5.00) mg/L B-Natriuretic Peptide ( - 100) pg/mL Total Protein 7.8 (6.4-8.9) g/dL Albumin 3.4 (3.2-5.2) g/dL Globulin 4.4 H (2-4) g/dL Albumin/Globulin Ratio 0.8 L (1-3) Lipase 271 H (11.0-82.0) U/L Procalcitonin < 0.1 (<0.6) ng/mL TSH 0.22 L (0.34-5.60) mcIU/mL Free T4 1.37 H (0.61-1.12) ng/dL Free T3 2.80 (2.5-3.9) pg/mL Urine Color Urine Appearance Urine pH (5-9) Ur Specific [place] (1.010-1.030) Urine Protein (Negative) Urine Ketones (Negative) Urine Blood (Negative) Urine Nitrate (Negative) Urine Bilirubin (Negative) Urine Urobilinogen (Negative) Ur Leukocyte Esterase (Negative) Urine WBC (Auto) (Absent) Urine RBC (Auto) (Absent) Ur Squamous Epith Cells (Absent) Urine Bacteria (Absent) Urine Glucose (Negative) Digoxin 0.6 L (0.8-2.0) ng/ml 08/03/17 Range/Units 12:40 WBC (3.5-10.8) 10^3/ul RBC (4.0-5.4) 10^6/ul Hgb (12.0-16.0) g/dl Hct (35-47) % MCV (80-97) fL MCH (27-31) pg MCHC (31-36) g/dl RDW (10.5-15) % Plt Count (150-450) 10^3/ul MPV (7.4-10.4) um3 Neut % (Auto) (38-83) % Lymph % (Auto) (25-47) % [place] % (Auto) (0-7) % Eos % (Auto) (0-6) % Baso % (Auto) (0-2) % Absolute Neuts (auto) (1.5-7.7) 10^3/ul Absolute Lymphs (auto) (1.0-4.8) 10^3/ul Absolute Monos (auto) (0-0.8) 10^3/ul Absolute Eos (auto) (0-0.6) 10^3/ul Absolute Basos (auto) (0-0.2) 10^3/ul Absolute Nucleated RBC 10^3/ul Nucleated RBC % INR (Anticoag Therapy) (0.77-1.02) APTT (26.0-36.3) seconds D-Dimer, Quantitative (Less Than 230) ng/mL Sodium (133-145) mmol/L Potassium (3.5-5.0) mmol/L Chloride (101-111) mmol/L Carbon Dioxide (22-32) mmol/L Anion Gap (2-11) mmol/L BUN (6-24) mg/dL Creatinine (0.51-0.95) mg/dL Est GFR ( Amer) (>60) Est GFR (Non-Af Amer) (>60) BUN/Creatinine Ratio (8-20) Glucose (70-100) mg/dL Lactic Acid (0.5-2.0) mmol/L Calcium (8.6-10.3) mg/dL Magnesium (1.9-2.7) mg/dL Total Bilirubin (0.2-1.0) mg/dL AST (13-39) U/L ALT (7-52) U/L Alkaline Phosphatase (34-104) U/L Total Creatine Kinase (10-223) U/L CK-MB (CK-2) (0.6-6.3) ng/mL Troponin I (<0.04) ng/mL C-Reactive Protein (< 5.00) mg/L B-Natriuretic Peptide ( - 100) pg/mL Total Protein (6.4-8.9) g/dL Albumin (3.2-5.2) g/dL Globulin (2-4) g/dL Albumin/Globulin Ratio (1-3) Lipase (11.0-82.0) U/L Procalcitonin (<0.6) ng/mL TSH (0.34-5.60) mcIU/mL Free T4 (0.61-1.12) ng/dL Free T3 (2.5-3.9) pg/mL Urine Color Yellow Urine Appearance Clear Urine pH 5.0 (5-9) Ur Specific [place] 1.021 (1.010-1.030) Urine Protein Negative (Negative) Urine Ketones Negative (Negative) Urine Blood 1+ A (Negative) Urine Nitrate Negative (Negative) Urine Bilirubin Negative (Negative) Urine Urobilinogen Negative (Negative) Ur Leukocyte Esterase Negative (Negative) Urine WBC (Auto) Trace(0-5/hpf) (Absent) Urine RBC (Auto) 1+(3-5/hpf) A (Absent) Ur Squamous Epith Cells Present A (Absent) Urine Bacteria Absent (Absent) Urine Glucose Negative (Negative) Digoxin (0.8-2.0) ng/ml Microbiology and Other Data: Microbiology 08/03/17 18:32 Nasal Screen MRSA (PCR)([facility]) - Final Nasal Mrsa Not Detected 08/03/17 14:35 Influenza Types A,B Antigen ([facility]) - Final Nasal Specimen received for Influenza A/B Molecular testing Assess/Plan/Problems-Billing Assessment: 66 yo female with h/o afib on coumadin, hx of distant PE, DM, colostomy(h/o bowel obstruction), porcine AVR, CABG who presents with SOB, Influenza B, A. fib with RVR - Patient Problems (1) Influenza B Comment: Hoa clinically pt has Influneza B pneumonia of r lung-suspect it was present at admission (2) Atrial fibrillation with RVR Comment: now rate controlled. , but continues to have sinus pauses mostly at night . Continue Cardizem, Digoxin, and metoprolol will be held. lopresor lowered to 25 Mg BID, asked Dr. Waddell to see pt in consult will check overnight pulse ox, on pt's current 02 at 3L to eval for RYAN (3) Acute on chronic respiratory failure with hypoxemia Comment: now on 3 L 02, at home at 2.5 Resolved (4) COPD (chronic obstructive pulmonary disease) Comment: with exacerbation Cont Prednisone, will lower dose to 30 mg today (from 50 mg ) Improving (5) DM2 (diabetes mellitus, type 2) Comment: cont ISS diet controlled at home.Now uncontrolled due to steroids Check HbA1C (6) HTN (hypertension) Comment: controlled, continue cardizem and metoprolol. (7) Heart failure with preserved ejection fraction Comment: euvolemic, cont torsemide chronic diastolic, Echo shows EF 50-55%, with mod MR, severe LVH and bioprosthetic aortic valve present (8) Hypothyroidism (acquired) Comment: Continue levothyroxine. TSH at 0.22 at admission, but will not adjust the Synthroid for now, recommend checking it in 1-2 weeks once pt feels better. (9) DVT prophylaxis Comment: Lovenox till INR therapeutic, cont coumadin (dose increased to 7 mg on 08/05/17) Status and Disposition: inpatient
[2017-08-06] MEDS: Oseltamivir CAP* 75 MG CAP PO SCH ×2 (09:05→21:35)
[2017-08-06] MEDS: Tiotropium CAP.INH* CAP.INH/18 MCG (USE ORDER SET !) INH SCH (09:05)
[2017-08-06] MEDS: Ferrous Sulfate TAB* 325 MG PO SCH (09:05)
[2017-08-06] MEDS: Diltiazem CD CAP* 240 MG PO SCH (09:05)
[2017-08-06] MEDS: Atorvastatin* 80 MG TAB PO SCH (09:05)
[2017-08-06] MEDS: Sertraline* 100 MG TAB PO SCH (09:06)
[2017-08-06] MEDS: Torsemide TAB* 20 MG PO SCH (09:06)
[2017-08-06] MEDS: Aspirin EC Low Dose* 81 MG TAB.EC PO SCH (09:06)
[2017-08-06] MEDS: Ezetimibe TAB* 10 MG PO SCH (09:06)
[2017-08-06] MEDS: predniSONE TAB* 50 MG PO SCH (09:06)
[2017-08-06] MEDS: Metoprolol Tartrate TAB* 25 MG PO SCH ×2 (09:24→21:34)
--- NOTE | 2017-08-06 14:31 | CONSULT ---
Subjective Date of Service: 08/06/17 Interval History: Admission Date: 08/03/17 Date of consult: 08/06/2017 Provider: Hospitalist PMD: Dr. Simons Farm Appraiser: Dr. Sanders.* Reason for admission: Dyspnea, influenza Reason for consult: Atrial fibrillation management HISTORY OF PRESENT ILLNESS: Mercy Ziegler is 66 year old woman with a history as below most relevant from a cardiac standpoint prior bioprothestic AVR/CABG 2010, HFpEF, atrial fibrillation on warfarin and rate control and 02 dependent COPD. She was admitted with cough/chest tightness and dyspnea and found with rapid atrial fibrillation in the setting of influenza. She ruled out for ACS with serial negative troponins. Her initial rapid Afib was treated with 0.5 mg IV digoxin on top of already being on 0.25 mg po daily at home. She had also been given 5 mg IV lopressor in addition to 100 mg of lopressor which was a dose increase from last year she was on 50 mg bid. In this setting she had a maximum asymptomatic 4.5 second pause following a ventricular escape beat while sleeping following this high dose of rate control in addition to her usual diltiazem. Of note, there is suspicion of sleep apnea for which she is undergoing evaluation for. She is still dyspneic, has crackles and is wheezing. She is noted to have AFib/RVR with exertion still. She received another 100 mg of oral metoprolol last night and had up to 3 second asymptomatic pauses while sleeping. Her oxygen saturations were noted to be 85 % on documentation overnight. She denies any syncope. She gives no history of unprovoked syncope as an outpatient. PAST MEDICAL HISTORY: Includes chronic respiratory failure, on 2.5 L oxygen; diastolic heart failure; COPD with chronic respiratory failure; atrial fibrillation, on Coumadin; porcine aortic valve replacement in 2010 with SVG-RCA cabg; right lower extremity DVT approximately 10 years prior. Reported history of PE in Dr. Simons's records as well as ours; however, patient denies this. History of RYAN, not yet started on CPAP; type 2 diabetes; bowel obstruction in 2014, complicated by need for colostomy which remains; CAD with CABG in 2009; hyperlipidemia; hypothyroidism; peripheral vascular disease; GERD; cholecystectomy; appendectomy; ventral hernia repair; chronic pain. MEDICATIONS: Reviewed from Dr. Simons's office, printed today include: ALLERGIES: To SHELLFISH, IODINE, and CELEBREX, which all caused hives. FAMILY HISTORY: Father, no known history. Mother with CAD. Brother with CAD. SOCIAL HISTORY: Quit smoking 3 years prior, approximately 10-year pack history prior to that. No alcohol. Unemployed. Medications Active Medications: Acetaminophen (Tylenol Tab*) 650 mg PO Q4H PRN PRN Reason: FEVER/PAIN Last Admin: 08/05/17 05:18 Dose: 650 mg Hydrocodone Bitart/Acetaminophen (Paris 5-325 Tab*) 1 tab PO Q4H PRN PRN Reason: PAIN Last Admin: 08/05/17 19:58 Dose: 1 tab Albuterol (Ventolin Hfa Inhaler*) 2 puff INH Q4H PRN PRN Reason: SOB/WHEEZING Last Admin: 08/05/17 04:19 Dose: 2 puff Alprazolam (Xanax Tab*) 0.25 mg PO Q8H PRN PRN Reason: ANXIETY Last Admin: 08/04/17 21:31 Dose: 0.25 mg Aspirin (Aspirin Ec Low Dose*) 81 mg PO DAILY [facility] Last Admin: 08/06/17 09:06 Dose: 81 mg Atorvastatin Calcium (Lipitor*) 80 mg PO DAILY [facility] Last Admin: 08/06/17 09:05 Dose: 80 mg Dextrose (D50w Syringe 50 Ml*) 12.5 gm IV PUSH .FOR FS < 60 - SS PRN PRN Reason: FS < 60 Diltiazem HCl (Cardizem Cd Cap*) 240 mg PO DAILY [facility] Last Admin: 08/06/17 09:05 Dose: 240 mg Ezetimibe (Zetia Tab*) 10 mg PO DAILY [facility] Last Admin: 08/06/17 09:06 Dose: 10 mg Enoxaparin Sodium (Lovenox(*)) 100 mg SUBCUT 0600,1800 [facility] Last Admin: 08/06/17 06:10 Dose: 100 mg Ferrous Sulfate (Ferrous Sulfate Tab*) 325 mg PO DAILY [facility] Last Admin: 08/06/17 09:05 Dose: 325 mg Guaifenesin/Codeine Phosphate (Robitussin Ac 100mg-10mg*) 5 ml PO Q6H PRN PRN Reason: COUGH Last Admin: 08/05/17 04:27 Dose: 5 ml Insulin Human Lispro (Humalog*) 0 units SUBCUT ACHS JL PRN Reason: Protocol Last Admin: 08/06/17 12:41 Dose: 3 units Levothyroxine Sodium (Synthroid Tab*) 200 mcg PO DAILY@0600 [facility] Last Admin: 08/06/17 06:10 Dose: 200 mcg Metoprolol Tartrate (Lopressor Tab*) 25 mg PO Q12HR [facility] Last Admin: 08/06/17 09:24 Dose: 25 mg Mometasone Furoate (Asmanex 220 Mcg Mdi *) 1 puff INH QPM [facility] Last Admin: 08/05/17 19:21 Dose: 1 puff Ondansetron HCl (Zofran Inj*) 4 mg IV Q4H PRN PRN Reason: NAUSEA/VOMITING Last Admin: 08/03/17 18:16 Dose: 4 mg Oseltamivir Phosphate (Tamiflu Cap*) 75 mg PO BID [facility] Stop: 08/08/17 09:01 Last Admin: 08/06/17 09:05 Dose: 75 mg Prednisone (Deltasone Tab*) 30 mg PO DAILY [facility] Pregabalin (Lyrica Cap(*)) 50 mg PO BEDTIME [facility] Last Admin: 08/05/17 21:18 Dose: 50 mg Sertraline HCl (Zoloft*) 200 mg PO DAILY [facility] Last Admin: 08/06/17 09:06 Dose: 200 mg Tiotropium [place] (Spiriva Cap.Inh*) 1 cap INH DAILY [facility] Last Admin: 08/06/17 09:05 Dose: 1 cap Torsemide (Demadex*) 40 mg PO DAILY [facility] Last Admin: 08/06/17 09:06 Dose: 40 mg Trazodone HCl (Desyrel Tab*) 100 mg PO BEDTIME [facility] Last Admin: 08/05/17 21:19 Dose: 100 mg Warfarin Sodium (Coumadin Tab(*)) 3 mg PO DAILY@1700 [facility] PRN Reason: Protocol Warfarin Sodium (Coumadin Tab(*)) 4 mg PO DAILY@1700 [facility] PRN Reason: Protocol Home Medications: Atorvastatin* [Lipitor 80 MG*] 80 mg PO DAILY 10/25/12 [History Confirmed ] Fluticasone HFA 44 mcg(NF) [Flovent Hfa 44 mcg(NF)] 2 puff INH BID 10/25/12 [ History Confirmed 08/03/17] Sertraline* [Zoloft*] 200 mg PO DAILY 10/25/12 [History Confirmed 08/03/17] Digoxin TAB* [Lanoxin TAB*] 250 mcg PO 1700 11/13/14 [History Confirmed 08/03/17 ] Diltiazem CD CAP* [Cardizem CD CAP*] 240 mg PO DAILY 11/13/14 [History Confirmed 08/03/17] Aspirin EC Low Dose* [Ecotrin EC Low Dose 81 MG*] 81 mg PO DAILY 04/16/15 [ History Confirmed 08/03/17] Warfarin TAB(*) [Coumadin TAB(*)] 6 mg PO MOWEFR 04/29/15 [History Confirmed ] Metoprolol Tartrate TAB* [Lopressor TAB*] 100 mg PO BID 05/12/15 [History Confirmed 08/03/17] Tiotropium CAP.INH* [Spiriva CAP.INH*] 1 cap.inh INH DAILY 05/12/15 [History Confirmed 08/03/17] ALPRAZolam TAB* [Xanax TAB*] 0.25 mg PO Q8H PRN 06/25/15 [History Confirmed ] HYDROcodone/ACETAMIN 5-325 MG* [Paris 5-325 TAB*] 1 tab PO Q4H PRN 06/25/15 [ History Confirmed 08/03/17] Torsemide TAB* [Demadex 20 MG*] 40 mg PO DAILY 06/25/15 [History Confirmed 08/03] EPINEPHrine [Epipen 2-Maico] 0.3 mg IM ONCE PRN 06/21/16 [History Confirmed ] traZODone TAB* [Desyrel TAB*] 100 mg PO BEDTIME 06/21/16 [History Confirmed ] Ezetimibe TAB* [Zetia TAB*] 10 mg PO DAILY 08/22/16 [History Confirmed 08/03/17] Albuterol HFA INHALER* [Ventolin HFA Inhaler*] 2 puff INH Q4H PRN 08/03/17 [ History Confirmed 08/03/17] Ferrous Sulfate TAB* 325 mg PO DAILY 08/03/17 [History Confirmed 08/03/17] Levothyroxine TAB* [Synthroid TAB*] 200 mcg PO DAILY 08/03/17 [History Confirmed 08/03/17] Pregabalin CAP(*) [Lyrica CAP(*)] 50 mg PO BEDTIME 08/03/17 [History Confirmed 08/03/17] Spironolactone TAB* [Aldactone TAB*] 25 mg PO DAILY 08/03/17 [History Confirmed 08/03/17] Warfarin TAB(*) [Coumadin TAB(*)] 4 mg PO SUTUTHSA 08/03/17 [History Confirmed 08/03/17] Review of Systems - Measurements Intake and Output: Intake and Output Last 24 Hours 08/04/17 08/05/17 08/06/17 08/07/17 06:59 06:59 06:59 06:59 Intake Total 1452 1830 1810 830 Output Total 1050 2150 500 Balance 402 -320 1310 830 Weight 240 lb 4.862 oz 238 lb 5.115 oz 241 lb 6.499 oz Intake: IV Fluids 612 NS to Maintain IV Patency 62 IVPB 120 MAGNESIUM 60 NS to Maintain IV Patency 60 Oral 720 1830 1810 830 Output: Urine 800 500 Hendrix 1050 1350 Other: Estimated Void Medium Date of Last Bowel 08/05/2017 08/05/2017 Movement Estimated Stool Amount Medium # Voids 2 1 - Review of Systems Constitutional Symptoms: Positive: Weakness, Fatigue Negative: Weight Gain, Weight Loss Dermatology: Negative: Rash, Skin Lesions HEENT: Negative: Change in Hearing, Vertigo Eyes: Negative: Change in Vision, Double Vision Thyroid: Negative: Heat Intolerance, Sweatiness, Tremor, Frequent Defecation, Constipation, Palpitations, Primary Hypothyroidism, Primary Hyperthyroidism, Weight Loss, Weight Gain, Change in Skin/Hair, Change in Menstration, Radiation Exposure, Other Pulmonary: Positive: Cough, Sputum, Wheezing, Shortness of Breath, COPD, Exercise Intolerance, Home Oxygen Cardiology: Positive: Shortness of Breath, Swelling of Ankles, Edema, Other Gastroenterology: Negative: Abdominal Pain, Nausea, Vomiting, Anorexia Genital - Urinary: Negative: Dysuria, Hematuria Musculoskeletal: Negative: Joint Pain, Joint Stiffness, Osteoporosis Endocrinology: Negative: Polydipsia, Polyuria Hematologic/Lymphatic: Positive: Use of Anticoagulant, Use of Antiplatelet Drugs Neurology: Negative: Hx of Stroke\TIA, Hx Seizures Psychiatry: Negative: Unusual Anxiety, Suicidal Ideation Allergic/Immunologic: Negative: Hx HIV, Immunocompromise Review of Systems Statement: All other review of systems negative, unless stated above. Objective Vital Signs: Temp Pulse Resp BP Pulse Ox 97.5 F 75 25 126/77 95 08/06/17 12:00 08/06/17 07:00 08/06/17 07:00 08/06/17 07:00 08/06/17 07:00 Oxygen Devices in Use Now: Nasal Cannula - at 3L Appearance: chronically ill appearing, pleasant Ears/Nose/Mouth/Throat: Clear Oropharnyx, Mucous Membranes Moist Neck: Trachea Midline, - - uncertain jvp Respiratory: - - no increaesed work of breathing, scattered crackles and wheezing Cardiovascular: - - irregularly irregular, 1-2/6 systolic murmur base Abdominal: NL Sounds; No Tenderness; No Distention Extremities: - - 1+ edema with chronic stasis changes Skin: No Rash or Ulcers Neurological: Alert and Oriented x 3 Laboratory Results: 08/05/17 05:55 08/05/17 05:55 INR (Anticoag Therapy) 1.06 (0.77-1.02) H 08/06/17 06:14 APTT 26.2 seconds (26.0-36.3) 08/03/17 12:00 Total Bilirubin 0.80 mg/dL (0.2-1.0) 08/03/17 12:00 AST 19 U/L (13-39) 08/03/17 12:00 ALT 18 U/L (7-52) 08/03/17 12:00 Alkaline Phosphatase 64 U/L (34-104) 08/03/17 12:00 CK-MB (CK-2) 0.5 ng/mL (0.6-6.3) L 08/03/17 12:00 B-Natriuretic Peptide 514 pg/mL (-100) H 08/03/17 12:00 Total Protein 7.8 g/dL (6.4-8.9) 08/03/17 12:00 Albumin 3.4 g/dL (3.2-5.2) 08/03/17 12:00 Globulin 4.4 g/dL (2-4) H 08/03/17 12:00 Albumin/Globulin Ratio 0.8 (1-3) L 08/03/17 12:00 TSH 0.22 mcIU/mL (0.34-5.60) L 08/03/17 12:00 08/03/17 08/03/17 15:42 18:32 Troponin I 0.01 0.01 Diagnostic Imaging: Echo 08/03/2017 interpretation: moderate-severe LVH, lvef 50-55%, LA severe dilated, RV funciton mildly reduced , severe RA dilation, normal functioning aortic bioprosthesis, moderate mr EKG Data: EKG 08/03/2017: AFib/RVF difufse ST segment depression partially downsloping consider digoxin effect and/or rate related and/or ischemic changes (similar ST segment changes to ekg from 08/22/2016 which also showed atrial fibrillation) Assessment/Plan Mercy Ziegler is a 66 year old woman I am consulted on for long-term persistent atrial fibrillation management, LVEF normal. - Patients tachycardia is likely being driven by active influenza respiratory tract infection, high dose steroids and digoxin use (controls resting heart rate but not exertional heart rate well) - Permanent cardiac pacemaker is listed as a class III indication (should not be performed under any circumstances) for asymptomatic AV block associated with hypoxia of sleep apnea syndrome. I think the nocturnal asymptomatic heart block was also precipitated by high doses of rate control medication as above which will not be used senior living as rates return to normal with further treatment of her underlying influenza, copd exacerbation and steroid taper. - For now I would: Hold digoxin, would restart at 125 mcg po daily at discharge or later this admission Decrease metoprolol to 25 mg po bid. I would not overtreat her elevated heart rates with exertion for the time being. This can be increased to 50 mg po bid tomorrow if her telemetry tonight is relatively unremarkable Continue diltiazem 240 mg po daily Continue respiratory tract infection treatment and steroid taper. I think more aggressive treatment including using xopenex prior to ambulation may be helpful as well. Use more nocturnal 02 to prevent hypoxia while sleep apnea evaluation is ongoing although her 02 sats were 99% other parts of night suggesting obstruction may be more of the issue. 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 Sanders after discharge Thank you for allowing me to participate in the cardiovascular care of this patient. Please do not hesitate to contact me with questions or concerns.
[2017-08-06] MEDS: Warfarin TAB(*) 4 MG PO SCH (17:43)
[2017-08-06] MEDS: Warfarin TAB(*) 3 MG PO SCH (17:43)
[2017-08-06] MEDS: Mometasone 220 MCG MDI INH SCH (19:02)
[2017-08-06] MEDS: HYDROcodone/ACETAMIN 5-325 MG* 1 TAB PO PRN (21:34)
[2017-08-06] MEDS: traZODone TAB* 50 MG TAB PO SCH (21:35)
[2017-08-06] MEDS: Pregabalin CAP(*) 50 MG PO SCH (21:35)
[2017-08-07] MEDS: Levothyroxine TAB* 100 MCG TAB PO SCH (06:04)
[2017-08-07] MEDS: Enoxaparin(*) 100 MG/ML SYR SUBCUT SCH ×2 (06:05→17:27)
[2017-08-07 06:15] LABS: Hematocrit 41 % (35-47); Hemoglobin 13.2 g/dl (12.0-16.0); Mean Corpuscular HGB Conc 32 g/dl (31-36); Mean Corpuscular Hemoglobin 27 pg (27-31); Mean Corpuscular Volume 85 fL (80-97); Mean Platelet Volume 9 um3 (7.4-10.4); Platelet Count 168 10^3/ul (150-450); Red Blood Count 4.82 10^6/ul (4.0-5.4); Red Cell Distribution Width 17 % (10.5-15); White Blood Count 6.5 10^3/ul (3.5-10.8)
[2017-08-07 06:18] LABS: INR 1.34 (0.77-1.02)
[2017-08-07 06:32] LABS: EGFR Non-African American 61.1 (>60)
[2017-08-07] MEDS: Tiotropium CAP.INH* CAP.INH/18 MCG (USE ORDER SET !) INH SCH (07:58)
--- NOTE | 2017-08-07 08:24 | PN ---
Subjective Date of Service: 08/07/17 Interval History: Pt still feels very fatigued. Sinus pasuses not longer than 3 sec in the past 24H. Objective Active Medications: Acetaminophen (Tylenol Tab*) 650 mg PO Q4H PRN PRN Reason: FEVER/PAIN Last Admin: 08/05/17 05:18 Dose: 650 mg Hydrocodone Bitart/Acetaminophen ([place] 5-325 Tab*) 1 tab PO Q4H PRN PRN Reason: PAIN Last Admin: 08/06/17 21:34 Dose: 1 tab Albuterol (Ventolin Hfa Inhaler*) 2 puff INH Q4H PRN PRN Reason: SOB/WHEEZING Last Admin: 08/05/17 04:19 Dose: 2 puff Alprazolam (Xanax Tab*) 0.25 mg PO Q8H PRN PRN Reason: ANXIETY Last Admin: 08/04/17 21:31 Dose: 0.25 mg Aspirin (Aspirin Ec Low Dose*) 81 mg PO DAILY [facility] Last Admin: 08/06/17 09:06 Dose: 81 mg Atorvastatin Calcium (Lipitor*) 80 mg PO DAILY [facility] Last Admin: 08/06/17 09:05 Dose: 80 mg Dextrose (D50w Syringe 50 Ml*) 12.5 gm IV PUSH .FOR FS < 60 - SS PRN PRN Reason: FS < 60 Diltiazem HCl (Cardizem Cd Cap*) 240 mg PO DAILY [facility] Last Admin: 08/06/17 09:05 Dose: 240 mg Ezetimibe (Zetia Tab*) 10 mg PO DAILY [facility] Last Admin: 08/06/17 09:06 Dose: 10 mg Enoxaparin Sodium (Lovenox(*)) 100 mg SUBCUT 0600,1800 [facility] Last Admin: 08/07/17 06:05 Dose: 100 mg Ferrous Sulfate (Ferrous Sulfate Tab*) 325 mg PO DAILY [facility] Last Admin: 08/06/17 09:05 Dose: 325 mg Guaifenesin/Codeine Phosphate (Robitussin Ac 100mg-10mg*) 5 ml PO Q6H PRN PRN Reason: COUGH Last Admin: 08/05/17 04:27 Dose: 5 ml Insulin Human Lispro (Humalog*) 0 units SUBCUT ACHS [facility] PRN Reason: Protocol Last Admin: 08/06/17 21:33 Dose: 12 units Levothyroxine Sodium (Synthroid Tab*) 200 mcg PO DAILY@0600 [facility] Last Admin: 08/07/17 06:04 Dose: 200 mcg Metoprolol Tartrate (Lopressor Tab*) 25 mg PO Q12HR [facility] Last Admin: 08/06/17 21:34 Dose: 25 mg Mometasone Furoate (Asmanex 220 Mcg Mdi *) 1 puff INH QPM [facility] Last Admin: 08/06/17 19:02 Dose: 1 puff Ondansetron HCl (Zofran Inj*) 4 mg IV Q4H PRN PRN Reason: NAUSEA/VOMITING Last Admin: 08/03/17 18:16 Dose: 4 mg Oseltamivir Phosphate (Tamiflu Cap*) 75 mg PO BID [facility] Stop: 08/08/17 09:01 Last Admin: 08/06/17 21:35 Dose: 75 mg Prednisone (Deltasone Tab*) 30 mg PO DAILY [facility] Pregabalin (Lyrica Cap(*)) 50 mg PO BEDTIME [facility] Last Admin: 08/06/17 21:35 Dose: 50 mg Sertraline HCl (Zoloft*) 200 mg PO DAILY [facility] Last Admin: 08/06/17 09:06 Dose: 200 mg Tiotropium [place] (Spiriva Cap.Inh*) 1 cap INH DAILY [facility] Last Admin: 08/07/17 07:58 Dose: 1 cap Torsemide (Demadex*) 40 mg PO DAILY [facility] Last Admin: 08/06/17 09:06 Dose: 40 mg Trazodone HCl (Desyrel Tab*) 100 mg PO BEDTIME [facility] Last Admin: 08/06/17 21:35 Dose: 100 mg Warfarin Sodium (Coumadin Tab(*)) 3 mg PO DAILY@1700 [facility] PRN Reason: Protocol Last Admin: 08/06/17 17:43 Dose: 3 mg Warfarin Sodium (Coumadin Tab(*)) 4 mg PO DAILY@1700 [facility] PRN Reason: Protocol Last Admin: 08/06/17 17:43 Dose: 4 mg Vital Signs - 8 hr 08/07/17 08/07/17 08/07/17 01:00 01:01 02:00 Temperature Pulse Rate 57 44 56 Respiratory 16 15 15 Rate Blood Pressure 122/71 111/64 (mmHg) O2 Sat by Pulse 98 98 99 Oximetry 08/07/17 08/07/1718 03:00 03:01 03:26 Temperature 97.0 F Pulse Rate 53 47 Respiratory 15 15 Rate Blood Pressure 117/49 (mmHg) O2 Sat by Pulse 98 96 Oximetry 08/07/17 08/07/17 08/07/17 04:00 05:00 05:01 Temperature Pulse Rate 53 49 45 Respiratory 18 14 15 Rate Blood Pressure 130/66 121/55 (mmHg) O2 Sat by Pulse 97 97 96 Oximetry 08/07/17 08/07/17 08/07/17 05:23 06:00 06:03 Temperature Pulse Rate 57 66 56 Respiratory 14 16 17 Rate Blood Pressure 107/68 144/118 (mmHg) O2 Sat by Pulse 97 97 99 Oximetry 08/07/17 08/07/17 08/07/17 07:00 07:01 07:58 Temperature Pulse Rate 43 47 63 Respiratory 21 19 14 Rate Blood Pressure 92/58 (mmHg) O2 Sat by Pulse 97 96 99 Oximetry Oxygen Devices in Use Now: Nasal Cannula Appearance: 80 yo F in nAD, aAOx3 Eyes: No Scleral Icterus, PERRLA Ears/Nose/Mouth/Throat: NL Teeth, Lips, Gums, Mucous Membranes Moist Neck: NL Appearance and Movements; NL JVP, Trachea Midline Respiratory: Symmetrical Chest Expansion and Respiratory Effort, - - scattered rhonchi and wheezes b/l Cardiovascular: NL Sounds; No Murmurs; No JVD, - - irregular Abdominal: NL Sounds; No Tenderness; No Distention, No Hepatosplenomegaly, - - colostomy in place, bag with loose brown stool Lymphatic: No Cervical Adenopathy Extremities: No Edema, No Clubbing, Cyanosis Skin: No Nodules or Sclerosis, - - venous stasis disoloration in distal b/l LE's Neurological: Alert and Oriented x 3, NL Muscle Strength and Tone Result Diagrams: 08/07/17 06:00 08/07/17 06:00 Additional Lab and Data: Lab Results 08/03/17 08/03/17 08/03/17 Range/Units 12:00 12:00 12:00 WBC 7.3 (3.5-10.8) 10^3/ul RBC 4.65 (4.0-5.4) 10^6/ul Hgb 12.7 (12.0-16.0) g/dl Hct 39 (35-47) % MCV 84 (80-97) fL MCH 27 (27-31) pg MCHC 33 (31-36) g/dl RDW 18 H (10.5-15) % Plt Count 180 (150-450) 10^3/ul MPV 9 (7.4-10.4) um3 Neut % (Auto) 63.8 (38-83) % Lymph % (Auto) 17.9 L (25-47) % [place] % (Auto) 17.5 H (0-7) % Eos % (Auto) 0.1 (0-6) % Baso % (Auto) 0.7 (0-2) % Absolute Neuts (auto) 4.6 (1.5-7.7) 10^3/ul Absolute Lymphs (auto) 1.3 (1.0-4.8) 10^3/ul Absolute Monos (auto) 1.3 H (0-0.8) 10^3/ul Absolute Eos (auto) 0 (0-0.6) 10^3/ul Absolute Basos (auto) 0.1 (0-0.2) 10^3/ul Absolute Nucleated RBC 0 10^3/ul Nucleated RBC % 0 INR (Anticoag Therapy) 1.10 H (0.77-1.02) APTT 26.2 (26.0-36.3) seconds D-Dimer, Quantitative 492 H (Less Than 230) ng/mL Sodium (133-145) mmol/L Potassium (3.5-5.0) mmol/L Chloride (101-111) mmol/L Carbon Dioxide (22-32) mmol/L Anion Gap (2-11) mmol/L BUN (6-24) mg/dL Creatinine (0.51-0.95) mg/dL Est GFR ( Amer) (>60) Est GFR (Non-Af Amer) (>60) BUN/Creatinine Ratio (8-20) Glucose (70-100) mg/dL Lactic Acid (0.5-2.0) mmol/L Calcium (8.6-10.3) mg/dL Magnesium (1.9-2.7) mg/dL Total Bilirubin (0.2-1.0) mg/dL AST (13-39) U/L ALT (7-52) U/L Alkaline Phosphatase (34-104) U/L Total Creatine Kinase (10-223) U/L CK-MB (CK-2) (0.6-6.3) ng/mL Troponin I (<0.04) ng/mL C-Reactive Protein (< 5.00) mg/L B-Natriuretic Peptide 514 H ( - 100) pg/mL Total Protein (6.4-8.9) g/dL Albumin (3.2-5.2) g/dL Globulin (2-4) g/dL Albumin/Globulin Ratio (1-3) Lipase (11.0-82.0) U/L Procalcitonin (<0.6) ng/mL TSH (0.34-5.60) mcIU/mL Free T4 (0.61-1.12) ng/dL Free T3 (2.5-3.9) pg/mL Urine Color Urine Appearance Urine pH (5-9) Ur Specific [place] (1.010-1.030) Urine Protein (Negative) Urine Ketones (Negative) Urine Blood (Negative) Urine Nitrate (Negative) Urine Bilirubin (Negative) Urine Urobilinogen (Negative) Ur Leukocyte Esterase (Negative) Urine WBC (Auto) (Absent) Urine RBC (Auto) (Absent) Ur Squamous Epith Cells (Absent) Urine Bacteria (Absent) Urine Glucose (Negative) Digoxin (0.8-2.0) ng/ml 08/03/17 08/03/17 08/03/17 Range/Units 12:00 12:00 12:00 WBC (3.5-10.8) 10^3/ul RBC (4.0-5.4) 10^6/ul Hgb (12.0-16.0) g/dl Hct (35-47) % MCV (80-97) fL MCH (27-31) pg MCHC (31-36) g/dl RDW (10.5-15) % Plt Count (150-450) 10^3/ul MPV (7.4-10.4) um3 Neut % (Auto) (38-83) % Lymph % (Auto) (25-47) % [place] % (Auto) (0-7) % Eos % (Auto) (0-6) % Baso % (Auto) (0-2) % Absolute Neuts (auto) (1.5-7.7) 10^3/ul Absolute Lymphs (auto) (1.0-4.8) 10^3/ul Absolute Monos (auto) (0-0.8) 10^3/ul Absolute Eos (auto) (0-0.6) 10^3/ul Absolute Basos (auto) (0-0.2) 10^3/ul Absolute Nucleated RBC 10^3/ul Nucleated RBC % INR (Anticoag Therapy) (0.77-1.02) APTT (26.0-36.3) seconds D-Dimer, Quantitative (Less Than 230) ng/mL Sodium 132 L (133-145) mmol/L Potassium 3.7 (3.5-5.0) mmol/L Chloride 96 L (101-111) mmol/L Carbon Dioxide 30 (22-32) mmol/L Anion Gap 6 (2-11) mmol/L BUN 17 (6-24) mg/dL Creatinine 1.01 H (0.51-0.95) mg/dL Est GFR ( Amer) 70.5 (>60) Est GFR (Non-Af Amer) 54.8 (>60) BUN/Creatinine Ratio 16.8 (8-20) Glucose 128 H (70-100) mg/dL Lactic Acid 0.9 (0.5-2.0) mmol/L Calcium 9.1 (8.6-10.3) mg/dL Magnesium 1.7 L (1.9-2.7) mg/dL Total Bilirubin 0.80 (0.2-1.0) mg/dL AST 19 (13-39) U/L ALT 18 (7-52) U/L Alkaline Phosphatase 64 (34-104) U/L Total Creatine Kinase 48 (10-223) U/L CK-MB (CK-2) 0.5 L (0.6-6.3) ng/mL Troponin I 0.01 (<0.04) ng/mL C-Reactive Protein 35.23 H (< 5.00) mg/L B-Natriuretic Peptide ( - 100) pg/mL Total Protein 7.8 (6.4-8.9) g/dL Albumin 3.4 (3.2-5.2) g/dL Globulin 4.4 H (2-4) g/dL Albumin/Globulin Ratio 0.8 L (1-3) Lipase 271 H (11.0-82.0) U/L Procalcitonin < 0.1 (<0.6) ng/mL TSH 0.22 L (0.34-5.60) mcIU/mL Free T4 1.37 H (0.61-1.12) ng/dL Free T3 2.80 (2.5-3.9) pg/mL Urine Color Urine Appearance Urine pH (5-9) Ur Specific [place] (1.010-1.030) Urine Protein (Negative) Urine Ketones (Negative) Urine Blood (Negative) Urine Nitrate (Negative) Urine Bilirubin (Negative) Urine Urobilinogen (Negative) Ur Leukocyte Esterase (Negative) Urine WBC (Auto) (Absent) Urine RBC (Auto) (Absent) Ur Squamous Epith Cells (Absent) Urine Bacteria (Absent) Urine Glucose (Negative) Digoxin 0.6 L (0.8-2.0) ng/ml 08/03/17 Range/Units 12:40 WBC (3.5-10.8) 10^3/ul RBC (4.0-5.4) 10^6/ul Hgb (12.0-16.0) g/dl Hct (35-47) % MCV (80-97) fL MCH (27-31) pg MCHC (31-36) g/dl RDW (10.5-15) % Plt Count (150-450) 10^3/ul MPV (7.4-10.4) um3 Neut % (Auto) (38-83) % Lymph % (Auto) (25-47) % [place] % (Auto) (0-7) % Eos % (Auto) (0-6) % Baso % (Auto) (0-2) % Absolute Neuts (auto) (1.5-7.7) 10^3/ul Absolute Lymphs (auto) (1.0-4.8) 10^3/ul Absolute Monos (auto) (0-0.8) 10^3/ul Absolute Eos (auto) (0-0.6) 10^3/ul Absolute Basos (auto) (0-0.2) 10^3/ul Absolute Nucleated RBC 10^3/ul Nucleated RBC % INR (Anticoag Therapy) (0.77-1.02) APTT (26.0-36.3) seconds D-Dimer, Quantitative (Less Than 230) ng/mL Sodium (133-145) mmol/L Potassium (3.5-5.0) mmol/L Chloride (101-111) mmol/L Carbon Dioxide (22-32) mmol/L Anion Gap (2-11) mmol/L BUN (6-24) mg/dL Creatinine (0.51-0.95) mg/dL Est GFR ( Amer) (>60) Est GFR (Non-Af Amer) (>60) BUN/Creatinine Ratio (8-20) Glucose (70-100) mg/dL Lactic Acid (0.5-2.0) mmol/L Calcium (8.6-10.3) mg/dL Magnesium (1.9-2.7) mg/dL Total Bilirubin (0.2-1.0) mg/dL AST (13-39) U/L ALT (7-52) U/L Alkaline Phosphatase (34-104) U/L Total Creatine Kinase (10-223) U/L CK-MB (CK-2) (0.6-6.3) ng/mL Troponin I (<0.04) ng/mL C-Reactive Protein (< 5.00) mg/L B-Natriuretic Peptide ( - 100) pg/mL Total Protein (6.4-8.9) g/dL Albumin (3.2-5.2) g/dL Globulin (2-4) g/dL Albumin/Globulin Ratio (1-3) Lipase (11.0-82.0) U/L Procalcitonin (<0.6) ng/mL TSH (0.34-5.60) mcIU/mL Free T4 (0.61-1.12) ng/dL Free T3 (2.5-3.9) pg/mL Urine Color Yellow Urine Appearance Clear Urine pH 5.0 (5-9) Ur Specific [place] 1.021 (1.010-1.030) Urine Protein Negative (Negative) Urine Ketones Negative (Negative) Urine Blood 1+ A (Negative) Urine Nitrate Negative (Negative) Urine Bilirubin Negative (Negative) Urine Urobilinogen Negative (Negative) Ur Leukocyte Esterase Negative (Negative) Urine WBC (Auto) Trace(0-5/hpf) (Absent) Urine RBC (Auto) 1+(3-5/hpf) A (Absent) Ur Squamous Epith Cells Present A (Absent) Urine Bacteria Absent (Absent) Urine Glucose Negative (Negative) Digoxin (0.8-2.0) ng/ml Microbiology and Other Data: Microbiology 08/03/17 18:32 Nasal Screen MRSA (PCR)([facility]) - Final Nasal Mrsa Not Detected 08/03/17 14:35 Influenza Types A,B Antigen ([facility]) - Final Nasal Specimen received for Influenza A/B Molecular testing Assess/Plan/Problems-Billing Assessment: 66 yo female with h/o afib on coumadin, hx of distant PE, DM, colostomy(h/o bowel obstruction), porcine AVR, CABG who presents with SOB, Influenza B, A. fib with RVR - Patient Problems (1) Influenza B Comment: [place] clinically pt has Influneza B pneumonia of r lung-suspect it was present at admission (2) Atrial fibrillation with RVR Comment: now rate controlled. Sinus pauses not longer than [address] Waddell's recommendations: no indications for pacer, d/c digoxin, lower lopressor to 25 mg Q12H. Overnight pulse oximetry showed no significant desaturations, pt will need a formal sleep study as outpatient (3) Acute on chronic respiratory failure with hypoxemia Comment: now on 3 L 02, at home at 2.5 Resolved (4) COPD (chronic obstructive pulmonary disease) Comment: with exacerbation Cont Prednisone, 30 mg today Improving (5) DM2 (diabetes mellitus, type 2) Comment: cont ISS diet controlled at home.Now uncontrolled due to steroids HbA1C pending (6) HTN (hypertension) Comment: controlled, continue cardizem and metoprolol. (7) Heart failure with preserved ejection fraction Comment: euvolemic, cont torsemide chronic diastolic, Echo shows EF 50-55%, with mod MR, severe LVH and bioprosthetic aortic valve present (8) Hypothyroidism (acquired) Comment: Continue levothyroxine. TSH at 0.22 at admission, but will not adjust the Synthroid for now, recommend checking it in 1-2 weeks once pt feels better. (9) DVT prophylaxis Comment: Lovenox till INR therapeutic, cont coumadin (dose increased to 7 mg on 08/05/17) Status and Disposition: inpatient
[2017-08-07] MEDS: Sertraline* 100 MG TAB PO SCH (09:28)
[2017-08-07] MEDS: Diltiazem CD CAP* 240 MG PO SCH (09:29)
[2017-08-07] MEDS: Metoprolol Tartrate TAB* 25 MG PO SCH (09:30)
[2017-08-07] MEDS: Torsemide TAB* 20 MG PO SCH (09:30)
[2017-08-07] MEDS: Atorvastatin* 80 MG TAB PO SCH (09:30)
[2017-08-07] MEDS: Ezetimibe TAB* 10 MG PO SCH (09:30)
[2017-08-07] MEDS: predniSONE TAB* 10 MG PO SCH (09:30)
[2017-08-07] MEDS: Ferrous Sulfate TAB* 325 MG PO SCH (09:30)
[2017-08-07] MEDS: Oseltamivir CAP* 75 MG CAP PO SCH ×2 (09:30→20:23)
[2017-08-07] MEDS: Aspirin EC Low Dose* 81 MG TAB.EC PO SCH (09:30)
[2017-08-07] MEDS: Insulin LISPRO* 1 UNITS UNIT SUBCUT SCH ×4 (10:42→20:37)
[2017-08-07] MEDS ORDERED: Metoprolol Tartrate TAB* 25 MG PO ONE ×2 (11:13→12:10)
--- NOTE | 2017-08-07 11:25 | PN ---
Subjective Date of Service: 08/07/17 Interval History: f/u atrial fibrillation no lightheadedness or syncope remains bradycardia with up to 3-4 second asymptomatic pauses while sleeping Medications Active Medications: Acetaminophen (Tylenol Tab*) 650 mg PO Q4H PRN PRN Reason: FEVER/PAIN Last Admin: 08/05/17 05:18 Dose: 650 mg Hydrocodone Bitart/Acetaminophen ([place] 5-325 Tab*) 1 tab PO Q4H PRN PRN Reason: PAIN Last Admin: 08/06/17 21:34 Dose: 1 tab Albuterol (Ventolin Hfa Inhaler*) 2 puff INH Q4H PRN PRN Reason: SOB/WHEEZING Last Admin: 08/05/17 04:19 Dose: 2 puff Alprazolam (Xanax Tab*) 0.25 mg PO Q8H PRN PRN Reason: ANXIETY Last Admin: 08/04/17 21:31 Dose: 0.25 mg Aspirin (Aspirin Ec Low Dose*) 81 mg PO DAILY [facility] Last Admin: 08/07/17 09:30 Dose: 81 mg Atorvastatin Calcium (Lipitor*) 80 mg PO DAILY [facility] Last Admin: 08/07/17 09:30 Dose: 80 mg Dextrose (D50w Syringe 50 Ml*) 12.5 gm IV PUSH .FOR FS < 60 - SS PRN PRN Reason: FS < 60 Diltiazem HCl (Cardizem Cd Cap*) 240 mg PO DAILY [facility] Last Admin: 08/07/17 09:29 Dose: 240 mg Ezetimibe (Zetia Tab*) 10 mg PO DAILY [facility] Last Admin: 08/07/17 09:30 Dose: 10 mg Enoxaparin Sodium (Lovenox(*)) 100 mg SUBCUT 0600,1800 [facility] Last Admin: 08/07/17 06:05 Dose: 100 mg Ferrous Sulfate (Ferrous Sulfate Tab*) 325 mg PO DAILY [facility] Last Admin: 08/07/17 09:30 Dose: 325 mg Guaifenesin/Codeine Phosphate (Robitussin Ac 100mg-10mg*) 5 ml PO Q6H PRN PRN Reason: COUGH Last Admin: 08/05/17 04:27 Dose: 5 ml Insulin Human Lispro (Humalog*) 0 units SUBCUT ACHS [facility] PRN Reason: Protocol Last Admin: 08/07/17 10:42 Dose: Not Given Levothyroxine Sodium (Synthroid Tab*) 200 mcg PO DAILY@0600 [facility] Last Admin: 08/07/17 06:04 Dose: 200 mcg Metoprolol Tartrate (Lopressor Tab*) 25 mg PO ONCE ONE Stop: 08/07/17 11:14 Metoprolol Tartrate (Lopressor Tab*) 50 mg PO DAILY [facility] Mometasone Furoate (Asmanex 220 Mcg Mdi *) 1 puff INH QPM [facility] Last Admin: 08/06/17 19:02 Dose: 1 puff Ondansetron HCl (Zofran Inj*) 4 mg IV Q4H PRN PRN Reason: NAUSEA/VOMITING Last Admin: 08/03/17 18:16 Dose: 4 mg Oseltamivir Phosphate (Tamiflu Cap*) 75 mg PO BID [facility] Stop: 08/08/17 09:01 Last Admin: 08/07/17 09:30 Dose: 75 mg Prednisone (Deltasone Tab*) 30 mg PO DAILY [facility] Last Admin: 08/07/17 09:30 Dose: 30 mg Pregabalin (Lyrica Cap(*)) 50 mg PO BEDTIME [facility] Last Admin: 08/06/17 21:35 Dose: 50 mg Sertraline HCl (Zoloft*) 200 mg PO DAILY [facility] Last Admin: 08/07/17 09:28 Dose: 200 mg Tiotropium [place] (Spiriva Cap.Inh*) 1 cap INH DAILY [facility] Last Admin: 08/07/17 07:58 Dose: 1 cap Torsemide (Demadex*) 40 mg PO DAILY [facility] Last Admin: 08/07/17 09:30 Dose: 40 mg Trazodone HCl (Desyrel Tab*) 100 mg PO BEDTIME [facility] Last Admin: 08/06/17 21:35 Dose: 100 mg Warfarin Sodium (Coumadin Tab(*)) 3 mg PO DAILY@1700 [facility] PRN Reason: Protocol Last Admin: 08/06/17 17:43 Dose: 3 mg Warfarin Sodium (Coumadin Tab(*)) 4 mg PO DAILY@1700 [facility] PRN Reason: Protocol Last Admin: 08/06/17 17:43 Dose: 4 mg Objective Vital Signs: Temp Pulse Resp BP Pulse Ox 97.4 F 99 25 119/63 96 08/07/17 09:15 08/07/17 11:00 08/07/17 11:00 08/07/17 09:01 08/07/17 11:00 Oxygen Devices in Use Now: Nasal Cannula Appearance: chronically ill appearing, pleasant Ears/Nose/Mouth/Throat: Clear Oropharnyx, Mucous Membranes Moist Neck: Trachea Midline, - - uncertain jvp Respiratory: - - no increaesed work of breathing, scattered wheeze Cardiovascular: - - irregularly irregular, 1-2/6 systolic murmur base Abdominal: NL Sounds; No Tenderness; No Distention Extremities: - - 1+ edema with chronic stasis changes Skin: No Rash or Ulcers Neurological: Alert and Oriented x 3 Laboratory Results: 08/07/17 06:00 08/07/17 06:00 INR (Anticoag Therapy) 1.34 (0.77-1.02) H 08/07/17 05:55 APTT 26.2 seconds (26.0-36.3) 08/03/17 12:00 Total Bilirubin 0.80 mg/dL (0.2-1.0) 08/03/17 12:00 AST 19 U/L (13-39) 08/03/17 12:00 ALT 18 U/L (7-52) 08/03/17 12:00 Alkaline Phosphatase 64 U/L (34-104) 08/03/17 12:00 CK-MB (CK-2) 0.5 ng/mL (0.6-6.3) L 08/03/17 12:00 B-Natriuretic Peptide 514 pg/mL (-100) H 08/03/17 12:00 Total Protein 7.8 g/dL (6.4-8.9) 08/03/17 12:00 Albumin 3.4 g/dL (3.2-5.2) 08/03/17 12:00 Globulin 4.4 g/dL (2-4) H 08/03/17 12:00 Albumin/Globulin Ratio 0.8 (1-3) L 08/03/17 12:00 TSH 0.22 mcIU/mL (0.34-5.60) L 08/03/17 12:00 08/03/17 08/03/17 15:42 18:32 Troponin I 0.01 0.01 Diagnostic Imaging: Echo 08/03/2017 interpretation: moderate-severe LVH, lvef 50-55%, LA severe dilated, RV funciton mildly reduced , severe RA dilation, normal functioning aortic bioprosthesis, moderate mr EKG Data: EKG 08/03/2017: AFib/RVF difufse ST segment depression partially downsloping consider digoxin effect and/or rate related and/or ischemic changes (similar ST segment changes to ekg from 08/22/2016 which also showed atrial fibrillation) Assessment/Plan Mercy Ziegler is a 66 year old woman I am consulted on for long-term persistent atrial fibrillation management, LVEF normal. - Patients tachycardia is likely being driven by active influenza respiratory tract infection, high dose steroids and digoxin use (controls resting heart rate but not exertional heart rate well) - Nocturnal bradycardia and pauses related to decreased AV conduction asymptomatic are being driven by effects of sleep and multiple rate control medications, overnight maintained saturations on 3L 02 - For now I would: Hold digoxin, she would still be at a therapeutic level today, can consider d/c or restart at 125 mcg at discharge pending heart rates Given her heart rates during day are high and at night are low we will change short acting metoprolol tartrate to AM only, increase to 50 mg today (ordered) Continue diltiazem 240 mg po daily I would not overtreat her elevated heart rates with exertion for the time being while she continues to recover from influenza Patient should follow up with 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 Sanders after discharge Thank you for allowing me to participate in the cardiovascular care of this patient. Please do not hesitate to contact me with questions or concerns.
[2017-08-07] MEDS: Warfarin TAB(*) 4 MG PO SCH (17:26)
[2017-08-07] MEDS: Warfarin TAB(*) 3 MG PO SCH (17:27)
[2017-08-07] MEDS: Mometasone 220 MCG MDI INH SCH (19:24)
[2017-08-07] MEDS: Pregabalin CAP(*) 50 MG PO SCH (20:23)
[2017-08-07] MEDS: traZODone TAB* 50 MG TAB PO SCH (20:23)
[2017-08-08 05:36] LABS: INR 1.91 (0.77-1.02)
[2017-08-08] MEDS: Levothyroxine TAB* 100 MCG TAB PO SCH (06:57)
[2017-08-08] MEDS: Enoxaparin(*) 100 MG/ML SYR SUBCUT SCH ×2 (06:58→17:10)
[2017-08-08] MEDS: Acetaminophen TAB* 325 MG PO PRN (07:01)
[2017-08-08] MEDS: Tiotropium CAP.INH* CAP.INH/18 MCG (USE ORDER SET !) INH SCH (07:35)
[2017-08-08] MEDS: Insulin LISPRO* 1 UNITS UNIT SUBCUT SCH ×4 (08:31→21:59)
[2017-08-08] MEDS ORDERED: Metoprolol Tartrate TAB* 50 mg PO SCH (09:00)
[2017-08-08] MEDS: Ezetimibe TAB* 10 MG PO SCH (09:13)
[2017-08-08] MEDS: Aspirin EC Low Dose* 81 MG TAB.EC PO SCH (09:13)
[2017-08-08] MEDS: Ferrous Sulfate TAB* 325 MG PO SCH (09:13)
[2017-08-08] MEDS: Diltiazem CD CAP* 240 MG PO SCH (09:13)
[2017-08-08] MEDS: Oseltamivir CAP* 75 MG CAP PO SCH (09:13)
[2017-08-08] MEDS: predniSONE TAB* 10 MG PO SCH (09:13)
[2017-08-08] MEDS: Torsemide TAB* 20 MG PO SCH (09:13)
[2017-08-08] MEDS: Sertraline* 100 MG TAB PO SCH (09:13)
[2017-08-08] MEDS: Atorvastatin* 80 MG TAB PO SCH (09:13)
[2017-08-08] MEDS ORDERED: Metoprolol Tartrate TAB* 50 mg PO ONE (10:06)
--- NOTE | 2017-08-08 10:09 | PN ---
Subjective Date of Service: 08/08/17 Interval History: f/u atrial fibrillation no lightheadedness or syncope Remains dyspneic and scattered diffuse wheeze on exam HR at night when sleeping average 40's, maximum 3 second asymptomatic pause while sleeping and in afib (not a high risk finding) HR at rest normal but becomes quickly tachycardic with exertion. Medications Active Medications: Acetaminophen (Tylenol Tab*) 650 mg PO Q4H PRN PRN Reason: FEVER/PAIN Last Admin: 08/08/17 07:01 Dose: 650 mg Hydrocodone Bitart/Acetaminophen ([place] 5-325 Tab*) 1 tab PO Q4H PRN PRN Reason: PAIN Last Admin: 08/06/17 21:34 Dose: 1 tab Albuterol (Ventolin Hfa Inhaler*) 2 puff INH Q4H PRN PRN Reason: SOB/WHEEZING Last Admin: 08/05/17 04:19 Dose: 2 puff Alprazolam (Xanax Tab*) 0.25 mg PO Q8H PRN PRN Reason: ANXIETY Last Admin: 08/04/17 21:31 Dose: 0.25 mg Aspirin (Aspirin Ec Low Dose*) 81 mg PO DAILY [facility] Last Admin: 08/08/17 09:13 Dose: 81 mg Atorvastatin Calcium (Lipitor*) 80 mg PO DAILY [facility] Last Admin: 08/08/17 09:13 Dose: 80 mg Dextrose (D50w Syringe 50 Ml*) 12.5 gm IV PUSH .FOR FS < 60 - SS PRN PRN Reason: FS < 60 Diltiazem HCl (Cardizem Cd Cap*) 240 mg PO DAILY [facility] Last Admin: 08/08/17 09:13 Dose: 240 mg Ezetimibe (Zetia Tab*) 10 mg PO DAILY [facility] Last Admin: 08/08/17 09:13 Dose: 10 mg Enoxaparin Sodium (Lovenox(*)) 100 mg SUBCUT 0600,1800 [facility] Last Admin: 08/08/17 06:58 Dose: 100 mg Ferrous Sulfate (Ferrous Sulfate Tab*) 325 mg PO DAILY [facility] Last Admin: 08/08/17 09:13 Dose: 325 mg Guaifenesin/Codeine Phosphate (Robitussin Ac 100mg-10mg*) 5 ml PO Q6H PRN PRN Reason: COUGH Last Admin: 08/05/17 04:27 Dose: 5 ml Insulin Human Lispro (Humalog*) 0 units SUBCUT ACHS JL PRN Reason: Protocol Last Admin: 08/08/17 08:31 Dose: Not Given Levothyroxine Sodium (Synthroid Tab*) 200 mcg PO DAILY@0600 [facility] Last Admin: 08/08/17 06:57 Dose: 200 mcg Metoprolol Tartrate (Lopressor Tab*) 50 mg PO ONCE ONE Stop: 08/08/17 10:07 Metoprolol Tartrate (Lopressor Tab*) 100 mg PO DAILY [facility] Mometasone Furoate (Asmanex 220 Mcg Mdi *) 1 puff INH QPM [facility] Last Admin: 08/07/17 19:24 Dose: 1 puff Ondansetron HCl (Zofran Inj*) 4 mg IV Q4H PRN PRN Reason: NAUSEA/VOMITING Last Admin: 08/03/17 18:16 Dose: 4 mg Prednisone (Deltasone Tab*) 30 mg PO DAILY [facility] Last Admin: 08/08/17 09:13 Dose: 30 mg Pregabalin (Lyrica Cap(*)) 50 mg PO BEDTIME [facility] Last Admin: 08/07/17 20:23 Dose: 50 mg Sertraline HCl (Zoloft*) 200 mg PO DAILY [facility] Last Admin: 08/08/17 09:13 Dose: 200 mg Tiotropium [place] (Spiriva Cap.Inh*) 1 cap INH DAILY [facility] Last Admin: 08/08/17 07:35 Dose: 1 cap Torsemide (Demadex*) 40 mg PO DAILY [facility] Last Admin: 08/08/17 09:13 Dose: 40 mg Trazodone HCl (Desyrel Tab*) 100 mg PO BEDTIME [facility] Last Admin: 08/07/17 20:23 Dose: 100 mg Warfarin Sodium (Coumadin Tab(*)) 3 mg PO DAILY@1700 [facility] PRN Reason: Protocol Last Admin: 08/07/17 17:27 Dose: 3 mg Warfarin Sodium (Coumadin Tab(*)) 4 mg PO DAILY@1700 [facility] PRN Reason: Protocol Last Admin: 08/07/17 17:26 Dose: 4 mg Objective Vital Signs: Temp Pulse Resp BP Pulse Ox 97.3 F 87 20 134/80 94 08/08/17 08:01 08/08/17 07:38 08/08/17 08:01 08/08/17 08:01 08/08/17 08:01 Oxygen Devices in Use Now: Nasal Cannula Appearance: chronically ill appearing, pleasant Ears/Nose/Mouth/Throat: Clear Oropharnyx, Mucous Membranes Moist Neck: Trachea Midline, - - uncertain jvp Respiratory: - - no increaesed work of breathing, scattered wheeze Cardiovascular: - - irregularly irregular, 1-2/6 systolic murmur base Abdominal: NL Sounds; No Tenderness; No Distention Extremities: - - 1+ edema with chronic stasis changes Skin: No Rash or Ulcers Neurological: Alert and Oriented x 3 Laboratory Results: 08/07/17 06:00 08/07/17 06:00 INR (Anticoag Therapy) 1.91 (0.77-1.02) H 08/08/17 04:33 APTT 26.2 seconds (26.0-36.3) 08/03/17 12:00 Total Bilirubin 0.80 mg/dL (0.2-1.0) 08/03/17 12:00 AST 19 U/L (13-39) 08/03/17 12:00 ALT 18 U/L (7-52) 08/03/17 12:00 Alkaline Phosphatase 64 U/L (34-104) 08/03/17 12:00 CK-MB (CK-2) 0.5 ng/mL (0.6-6.3) L 08/03/17 12:00 B-Natriuretic Peptide 514 pg/mL (-100) H 08/03/17 12:00 Total Protein 7.8 g/dL (6.4-8.9) 08/03/17 12:00 Albumin 3.4 g/dL (3.2-5.2) 08/03/17 12:00 Globulin 4.4 g/dL (2-4) H 08/03/17 12:00 Albumin/Globulin Ratio 0.8 (1-3) L 08/03/17 12:00 TSH 0.22 mcIU/mL (0.34-5.60) L 08/03/17 12:00 08/03/17 08/03/17 15:42 18:32 Troponin I 0.01 0.01 Diagnostic Imaging: Echo 08/03/2017 interpretation: moderate-severe LVH, lvef 50-55%, LA severe dilated, RV funciton mildly reduced , severe RA dilation, normal functioning aortic bioprosthesis, moderate mr EKG Data: EKG 08/03/2017: AFib/RVF difufse ST segment depression partially downsloping consider digoxin effect and/or rate related and/or ischemic changes (similar ST segment changes to ekg from 08/22/2016 which also showed atrial fibrillation) Assessment/Plan Mercy Ziegler is a 66 year old woman I am consulted on for long-term persistent atrial fibrillation management, LVEF normal. - Patients tachycardia is likely being driven by active influenza respiratory tract infection, high dose steroids and digoxin use (controls resting heart rate but not exertional heart rate well) - Nocturnal bradycardia and pauses related to decreased AV conduction asymptomatic are being driven by effects of sleep and multiple rate control medications, overnight maintained saturations on 3L 02 For now I would: - Discontinue digoxin altogether, this can be considered to restart as an outpatient - Given her heart rates during day are high with exertion (being driven by above factors) and at night are low we will change short acting metoprolol tartrate to once daily AM only (and d/c PM dose), increase to 100 mg PO once daily this AM (ordered) - Continue diltiazem 240 mg po daily - I would not overtreat her elevated heart rates with exertion for the time being while she continues to recover from influenza - I discussed with Dr. Sanders on phone and patient does have a history of untreated sleep apnea. Despite not desaturating on 02 her bradycardia/pauses may also be driven by vagal response to this. I discussed above plan with patient and Dr. Sanders (on phone) and patient should follow up with Dr. Sanders after discharge for further management as her influenza related copd exacerbation continues to recover. Patient is ok to discharge from a strictly cardiac standpoint on above regimen. Thank you for allowing me to participate in the cardiovascular care of this patient. Please do not hesitate to contact me with questions or concerns.
--- NOTE | 2017-08-08 11:21 | PN ---
Subjective Date of Service: 08/08/17 Interval History: Patient seen and examined at bedside. Ms. Ziegler reports improvement in symptoms and is on baseline oxygen. Still feels a bit run down but is hopeful for discharge to home tomorrow. Discussed obtaining nebulizer for home use, does not currently have one. Denies fever/chills, CP, increased difficulty breathing. Overall feels improved. Tele: Afib 100s Family History: Unchanged from Admission Social History: Unchanged from Admission Past Medical History: Unchanged from Admission Objective Active Medications: Acetaminophen (Tylenol Tab*) 650 mg PO Q4H PRN PRN Reason: FEVER/PAIN Last Admin: 08/08/17 07:01 Dose: 650 mg Hydrocodone Bitart/Acetaminophen ([place] 5-325 Tab*) 1 tab PO Q4H PRN PRN Reason: PAIN Last Admin: 08/06/17 21:34 Dose: 1 tab Albuterol (Ventolin Hfa Inhaler*) 2 puff INH Q4H PRN PRN Reason: SOB/WHEEZING Last Admin: 08/05/17 04:19 Dose: 2 puff Alprazolam (Xanax Tab*) 0.25 mg PO Q8H PRN PRN Reason: ANXIETY Last Admin: 08/04/17 21:31 Dose: 0.25 mg Aspirin (Aspirin Ec Low Dose*) 81 mg PO DAILY [facility] Last Admin: 08/08/17 09:13 Dose: 81 mg Atorvastatin Calcium (Lipitor*) 80 mg PO DAILY [facility] Last Admin: 08/08/17 09:13 Dose: 80 mg Dextrose (D50w Syringe 50 Ml*) 12.5 gm IV PUSH .FOR FS < 60 - SS PRN PRN Reason: FS < 60 Diltiazem HCl (Cardizem Cd Cap*) 240 mg PO DAILY [facility] Last Admin: 08/08/17 09:13 Dose: 240 mg Ezetimibe (Zetia Tab*) 10 mg PO DAILY [facility] Last Admin: 08/08/17 09:13 Dose: 10 mg Enoxaparin Sodium (Lovenox(*)) 100 mg SUBCUT 0600,1800 [facility] Last Admin: 08/08/17 06:58 Dose: 100 mg Ferrous Sulfate (Ferrous Sulfate Tab*) 325 mg PO DAILY [facility] Last Admin: 08/08/17 09:13 Dose: 325 mg Guaifenesin/Codeine Phosphate (Robitussin Ac 100mg-10mg*) 5 ml PO Q6H PRN PRN Reason: COUGH Last Admin: 08/05/17 04:27 Dose: 5 ml Insulin Human Lispro (Humalog*) 0 units SUBCUT ACHS JL PRN Reason: Protocol Last Admin: 08/08/17 08:31 Dose: Not Given Levothyroxine Sodium (Synthroid Tab*) 200 mcg PO DAILY@0600 [facility] Last Admin: 08/08/17 06:57 Dose: 200 mcg Metoprolol Tartrate (Lopressor Tab*) 100 mg PO DAILY [facility] Mometasone Furoate (Asmanex 220 Mcg Mdi *) 1 puff INH QPM [facility] Last Admin: 08/07/17 19:24 Dose: 1 puff Ondansetron HCl (Zofran Inj*) 4 mg IV Q4H PRN PRN Reason: NAUSEA/VOMITING Last Admin: 08/03/17 18:16 Dose: 4 mg Prednisone (Deltasone Tab*) 30 mg PO DAILY [facility] Last Admin: 08/08/17 09:13 Dose: 30 mg Pregabalin (Lyrica Cap(*)) 50 mg PO BEDTIME [facility] Last Admin: 08/07/17 20:23 Dose: 50 mg Sertraline HCl (Zoloft*) 200 mg PO DAILY [facility] Last Admin: 08/08/17 09:13 Dose: 200 mg Tiotropium [place] (Spiriva Cap.Inh*) 1 cap INH DAILY [facility] Last Admin: 08/08/17 07:35 Dose: 1 cap Torsemide (Demadex*) 40 mg PO DAILY [facility] Last Admin: 08/08/17 09:13 Dose: 40 mg Trazodone HCl (Desyrel Tab*) 100 mg PO BEDTIME [facility] Last Admin: 08/07/17 20:23 Dose: 100 mg Warfarin Sodium (Coumadin Tab(*)) 3 mg PO DAILY@1700 [facility] PRN Reason: Protocol Last Admin: 08/07/17 17:27 Dose: 3 mg Warfarin Sodium (Coumadin Tab(*)) 4 mg PO DAILY@1700 [facility] PRN Reason: Protocol Last Admin: 08/07/17 17:26 Dose: 4 mg Vital Signs - 8 hr 08/08/17 08/08/17 08/08/17 04:01 07:38 08:00 Temperature 97.6 F Pulse Rate 85 87 Respiratory 16 19 18 Rate Blood Pressure 131/67 (mmHg) O2 Sat by Pulse 95 96 Oximetry 08/08/17 08:01 Temperature 97.3 F Pulse Rate Respiratory 20 Rate Blood Pressure 134/80 (mmHg) O2 Sat by Pulse 94 Oximetry Oxygen Devices in Use Now: Nasal Cannula Appearance: Older, chronically ill appearing female, sitting up in chair, NAD Eyes: No Scleral Icterus, PERRLA Ears/Nose/Mouth/Throat: Mucous Membranes Moist Neck: NL Appearance and Movements; NL JVP Respiratory: Symmetrical Chest Expansion and Respiratory Effort, - - scattered wheezes Cardiovascular: - - irregularly irregular, soft systolic murmur Abdominal: NL Sounds; No Tenderness; No Distention Extremities: - - chronic venous stasis changes, +1 BLE edema Neurological: Alert and Oriented x 3, NL Muscle Strength and Tone Lines/Tubes/Other Access: Clean, Dry and Intact Peripheral IV Result Diagrams: 08/07/17 06:00 08/07/17 06:00 Additional Lab and Data: Lab Results 08/03/17 08/03/17 08/03/17 Range/Units 12:00 12:00 12:00 WBC 7.3 (3.5-10.8) 10^3/ul RBC 4.65 (4.0-5.4) 10^6/ul Hgb 12.7 (12.0-16.0) g/dl Hct 39 (35-47) % MCV 84 (80-97) fL MCH 27 (27-31) pg MCHC 33 (31-36) g/dl RDW 18 H (10.5-15) % Plt Count 180 (150-450) 10^3/ul MPV 9 (7.4-10.4) um3 Neut % (Auto) 63.8 (38-83) % Lymph % (Auto) 17.9 L (25-47) % [place] % (Auto) 17.5 H (0-7) % Eos % (Auto) 0.1 (0-6) % Baso % (Auto) 0.7 (0-2) % Absolute Neuts (auto) 4.6 (1.5-7.7) 10^3/ul Absolute Lymphs (auto) 1.3 (1.0-4.8) 10^3/ul Absolute Monos (auto) 1.3 H (0-0.8) 10^3/ul Absolute Eos (auto) 0 (0-0.6) 10^3/ul Absolute Basos (auto) 0.1 (0-0.2) 10^3/ul Absolute Nucleated RBC 0 10^3/ul Nucleated RBC % 0 INR (Anticoag Therapy) 1.10 H (0.77-1.02) APTT 26.2 (26.0-36.3) seconds D-Dimer, Quantitative 492 H (Less Than 230) ng/mL Sodium (133-145) mmol/L Potassium (3.5-5.0) mmol/L Chloride (101-111) mmol/L Carbon Dioxide (22-32) mmol/L Anion Gap (2-11) mmol/L BUN (6-24) mg/dL Creatinine (0.51-0.95) mg/dL Est GFR ( Amer) (>60) Est GFR (Non-Af Amer) (>60) BUN/Creatinine Ratio (8-20) Glucose (70-100) mg/dL Lactic Acid (0.5-2.0) mmol/L Calcium (8.6-10.3) mg/dL Magnesium (1.9-2.7) mg/dL Total Bilirubin (0.2-1.0) mg/dL AST (13-39) U/L ALT (7-52) U/L Alkaline Phosphatase (34-104) U/L Total Creatine Kinase (10-223) U/L CK-MB (CK-2) (0.6-6.3) ng/mL Troponin I (<0.04) ng/mL C-Reactive Protein (< 5.00) mg/L B-Natriuretic Peptide 514 H ( - 100) pg/mL Total Protein (6.4-8.9) g/dL Albumin (3.2-5.2) g/dL Globulin (2-4) g/dL Albumin/Globulin Ratio (1-3) Lipase (11.0-82.0) U/L Procalcitonin (<0.6) ng/mL TSH (0.34-5.60) mcIU/mL Free T4 (0.61-1.12) ng/dL Free T3 (2.5-3.9) pg/mL Urine Color Urine Appearance Urine pH (5-9) Ur Specific [place] (1.010-1.030) Urine Protein (Negative) Urine Ketones (Negative) Urine Blood (Negative) Urine Nitrate (Negative) Urine Bilirubin (Negative) Urine Urobilinogen (Negative) Ur Leukocyte Esterase (Negative) Urine WBC (Auto) (Absent) Urine RBC (Auto) (Absent) Ur Squamous Epith Cells (Absent) Urine Bacteria (Absent) Urine Glucose (Negative) Digoxin (0.8-2.0) ng/ml 08/03/17 08/03/17 08/03/17 Range/Units 12:00 12:00 12:00 WBC (3.5-10.8) 10^3/ul RBC (4.0-5.4) 10^6/ul Hgb (12.0-16.0) g/dl Hct (35-47) % MCV (80-97) fL MCH (27-31) pg MCHC (31-36) g/dl RDW (10.5-15) % Plt Count (150-450) 10^3/ul MPV (7.4-10.4) um3 Neut % (Auto) (38-83) % Lymph % (Auto) (25-47) % [place] % (Auto) (0-7) % Eos % (Auto) (0-6) % Baso % (Auto) (0-2) % Absolute Neuts (auto) (1.5-7.7) 10^3/ul Absolute Lymphs (auto) (1.0-4.8) 10^3/ul Absolute Monos (auto) (0-0.8) 10^3/ul Absolute Eos (auto) (0-0.6) 10^3/ul Absolute Basos (auto) (0-0.2) 10^3/ul Absolute Nucleated RBC 10^3/ul Nucleated RBC % INR (Anticoag Therapy) (0.77-1.02) APTT (26.0-36.3) seconds D-Dimer, Quantitative (Less Than 230) ng/mL Sodium 132 L (133-145) mmol/L Potassium 3.7 (3.5-5.0) mmol/L Chloride 96 L (101-111) mmol/L Carbon Dioxide 30 (22-32) mmol/L Anion Gap 6 (2-11) mmol/L BUN 17 (6-24) mg/dL Creatinine 1.01 H (0.51-0.95) mg/dL Est GFR ( Amer) 70.5 (>60) Est GFR (Non-Af Amer) 54.8 (>60) BUN/Creatinine Ratio 16.8 (8-20) Glucose 128 H (70-100) mg/dL Lactic Acid 0.9 (0.5-2.0) mmol/L Calcium 9.1 (8.6-10.3) mg/dL Magnesium 1.7 L (1.9-2.7) mg/dL Total Bilirubin 0.80 (0.2-1.0) mg/dL AST 19 (13-39) U/L ALT 18 (7-52) U/L Alkaline Phosphatase 64 (34-104) U/L Total Creatine Kinase 48 (10-223) U/L CK-MB (CK-2) 0.5 L (0.6-6.3) ng/mL Troponin I 0.01 (<0.04) ng/mL C-Reactive Protein 35.23 H (< 5.00) mg/L B-Natriuretic Peptide ( - 100) pg/mL Total Protein 7.8 (6.4-8.9) g/dL Albumin 3.4 (3.2-5.2) g/dL Globulin 4.4 H (2-4) g/dL Albumin/Globulin Ratio 0.8 L (1-3) Lipase 271 H (11.0-82.0) U/L Procalcitonin < 0.1 (<0.6) ng/mL TSH 0.22 L (0.34-5.60) mcIU/mL Free T4 1.37 H (0.61-1.12) ng/dL Free T3 2.80 (2.5-3.9) pg/mL Urine Color Urine Appearance Urine pH (5-9) Ur Specific [place] (1.010-1.030) Urine Protein (Negative) Urine Ketones (Negative) Urine Blood (Negative) Urine Nitrate (Negative) Urine Bilirubin (Negative) Urine Urobilinogen (Negative) Ur Leukocyte Esterase (Negative) Urine WBC (Auto) (Absent) Urine RBC (Auto) (Absent) Ur Squamous Epith Cells (Absent) Urine Bacteria (Absent) Urine Glucose (Negative) Digoxin 0.6 L (0.8-2.0) ng/ml 08/03/17 Range/Units 12:40 WBC (3.5-10.8) 10^3/ul RBC (4.0-5.4) 10^6/ul Hgb (12.0-16.0) g/dl Hct (35-47) % MCV (80-97) fL MCH (27-31) pg MCHC (31-36) g/dl RDW (10.5-15) % Plt Count (150-450) 10^3/ul MPV (7.4-10.4) um3 Neut % (Auto) (38-83) % Lymph % (Auto) (25-47) % [place] % (Auto) (0-7) % Eos % (Auto) (0-6) % Baso % (Auto) (0-2) % Absolute Neuts (auto) (1.5-7.7) 10^3/ul Absolute Lymphs (auto) (1.0-4.8) 10^3/ul Absolute Monos (auto) (0-0.8) 10^3/ul Absolute Eos (auto) (0-0.6) 10^3/ul Absolute Basos (auto) (0-0.2) 10^3/ul Absolute Nucleated RBC 10^3/ul Nucleated RBC % INR (Anticoag Therapy) (0.77-1.02) APTT (26.0-36.3) seconds D-Dimer, Quantitative (Less Than 230) ng/mL Sodium (133-145) mmol/L Potassium (3.5-5.0) mmol/L Chloride (101-111) mmol/L Carbon Dioxide (22-32) mmol/L Anion Gap (2-11) mmol/L BUN (6-24) mg/dL Creatinine (0.51-0.95) mg/dL Est GFR ( Amer) (>60) Est GFR (Non-Af Amer) (>60) BUN/Creatinine Ratio (8-20) Glucose (70-100) mg/dL Lactic Acid (0.5-2.0) mmol/L Calcium (8.6-10.3) mg/dL Magnesium (1.9-2.7) mg/dL Total Bilirubin (0.2-1.0) mg/dL AST (13-39) U/L ALT (7-52) U/L Alkaline Phosphatase (34-104) U/L Total Creatine Kinase (10-223) U/L CK-MB (CK-2) (0.6-6.3) ng/mL Troponin I (<0.04) ng/mL C-Reactive Protein (< 5.00) mg/L B-Natriuretic Peptide ( - 100) pg/mL Total Protein (6.4-8.9) g/dL Albumin (3.2-5.2) g/dL Globulin (2-4) g/dL Albumin/Globulin Ratio (1-3) Lipase (11.0-82.0) U/L Procalcitonin (<0.6) ng/mL TSH (0.34-5.60) mcIU/mL Free T4 (0.61-1.12) ng/dL Free T3 (2.5-3.9) pg/mL Urine Color Yellow Urine Appearance Clear Urine pH 5.0 (5-9) Ur Specific [place] 1.021 (1.010-1.030) Urine Protein Negative (Negative) Urine Ketones Negative (Negative) Urine Blood 1+ A (Negative) Urine Nitrate Negative (Negative) Urine Bilirubin Negative (Negative) Urine Urobilinogen Negative (Negative) Ur Leukocyte Esterase Negative (Negative) Urine WBC (Auto) Trace(0-5/hpf) (Absent) Urine RBC (Auto) 1+(3-5/hpf) A (Absent) Ur Squamous Epith Cells Present A (Absent) Urine Bacteria Absent (Absent) Urine Glucose Negative (Negative) Digoxin (0.8-2.0) ng/ml Microbiology and Other Data: Microbiology 08/03/17 18:32 Nasal Screen MRSA (PCR)([facility]) - Final Nasal Mrsa Not Detected 08/03/17 14:35 Influenza Types A,B Antigen ([facility]) - Final Nasal Specimen received for Influenza A/B Molecular testing Assess/Plan/Problems-Billing Assessment: 66 yo female with h/o afib on coumadin, hx of distant PE, DM, colostomy(h/o bowel obstruction), porcine AVR, CABG who presents with SOB, Influenza B, A. fib with RVR - Patient Problems (1) Influenza B Code(s): J10.1 - FLU DUE TO OTH IDENT INFLUENZA VIRUS W OTH RESP MANIFEST Comment: Treated with [place] Clinically, pt has Influneza B pneumonia of right lung Suspect it was present on admission (2) Atrial fibrillation with RVR Code(s): I48.91 - UNSPECIFIED ATRIAL FIBRILLATION Comment: Now rate controlled. Sinus pauses not longer than [address] Waddell's recommendations: no indications for pacer, d/c digoxin, start metoprolol succinate 100 mg qAM Overnight pulse oximetry showed no significant desaturations, pt will need a formal sleep study as outpatient (3) Acute on chronic respiratory failure with hypoxemia Code(s): J96.21 - ACUTE AND CHRONIC RESPIRATORY FAILURE WITH HYPOXIA Comment: Now on home settings of 2.5Lnc Resolved (4) COPD (chronic obstructive pulmonary disease) Code(s): J44.9 - CHRONIC OBSTRUCTIVE PULMONARY DISEASE, UNSPECIFIED Comment: With exacerbation Cont Prednisone, 30 mg today Improving (5) DM2 (diabetes mellitus, type 2) Comment: Cont ISS Diet controlled at home. Now uncontrolled, due to steroids HbA1C 7.6 Discussed with patient, plan to start metformin here and d/c home with medication. (6) HTN (hypertension) Code(s): I10 - ESSENTIAL (PRIMARY) HYPERTENSION Comment: Controlled, continue diltiazem and metoprolol. (7) Heart failure with preserved ejection fraction Code(s): I50.9 - HEART FAILURE, UNSPECIFIED Comment: Euvolemic, cont torsemide Chronic diastolic, Echo shows EF 50-55%, with mod MR, severe LVH and bioprosthetic aortic valve present (8) Hypothyroidism (acquired) Code(s): E03.9 - HYPOTHYROIDISM, UNSPECIFIED Comment: Continue levothyroxine. TSH at 0.22 at admission, but will not adjust the Synthroid for now Recommend checking it in 1-2 weeks once pt feels better. (9) DVT prophylaxis Comment: Lovenox till INR therapeutic, cont coumadin (dose increased to 7 mg on 08/05/17 ) Status and Disposition: Inpatient, potential for d/c tomorrow.
[2017-08-08] MEDS: metFORMIN* 500 MG TAB PO SCH (17:11)
[2017-08-08] MEDS: Warfarin TAB(*) 3 MG PO SCH (17:11)
[2017-08-08] MEDS: Warfarin TAB(*) 4 MG PO SCH (17:11)
[2017-08-08] MEDS: Mometasone 220 MCG MDI INH SCH (19:25)
[2017-08-08] MEDS: Pregabalin CAP(*) 50 MG PO SCH (22:00)
[2017-08-08] MEDS: traZODone TAB* 50 MG TAB PO SCH (22:00)
[2017-08-09] MEDS: Levothyroxine TAB* 100 MCG TAB PO SCH (05:39)
[2017-08-09] MEDS: Enoxaparin(*) 100 MG/ML SYR SUBCUT SCH (05:39)
[2017-08-09 06:00] LABS: ABS Basophils 0 10^3/ul (0-0.2); ABS Eosinophils 0 10^3/ul (0-0.6); ABS Lymphocytes 2.8 10^3/ul (1.0-4.8); ABS Monocytes 0.9 10^3/ul (0-0.8); ABS Neutrophils 4.3 10^3/ul (1.5-7.7); ABS Nucleated RBC 0 10^3/ul; Eosinophil % 0.4 % (0-6); Hematocrit 39 % (35-47); Hemoglobin 12.7 g/dl (12.0-16.0); Lymphocyte % 34.8 % (25-47); Mean Corpuscular HGB Conc 32 g/dl (31-36); Mean Corpuscular Hemoglobin 27 pg (27-31); Mean Corpuscular Volume 85 fL (80-97); Mean Platelet Volume 9 um3 (7.4-10.4); Nucleated Red Blood Cells % 0; Platelet Count 160 10^3/ul (150-450); Red Blood Count 4.66 10^6/ul (4.0-5.4); Red Cell Distribution Width 17 % (10.5-15); White Blood Count 8.1 10^3/ul (3.5-10.8)
[2017-08-09 06:04] LABS: INR 2.37 (0.77-1.02)
[2017-08-09] MEDS: Insulin LISPRO* 1 UNITS UNIT SUBCUT SCH ×4 (08:13→22:08)
[2017-08-09] MEDS: metFORMIN* 500 MG TAB PO SCH ×2 (08:27→17:55)
[2017-08-09] MEDS: Aspirin EC Low Dose* 81 MG TAB.EC PO SCH (08:27)
[2017-08-09] MEDS: Sertraline* 100 MG TAB PO SCH (08:27)
[2017-08-09] MEDS: Torsemide TAB* 20 MG PO SCH (08:27)
[2017-08-09] MEDS: Atorvastatin* 80 MG TAB PO SCH (08:27)
[2017-08-09] MEDS: Ezetimibe TAB* 10 MG PO SCH (08:28)
[2017-08-09] MEDS: Diltiazem CD CAP* 240 MG PO SCH (08:28)
[2017-08-09] MEDS: Metoprolol Tartrate TAB* 50 mg PO SCH (08:28)
[2017-08-09] MEDS: Ferrous Sulfate TAB* 325 MG PO SCH (08:29)
[2017-08-09] MEDS: predniSONE TAB* 10 MG PO SCH (08:29)
[2017-08-09] MEDS: Tiotropium CAP.INH* CAP.INH/18 MCG (USE ORDER SET !) INH SCH (08:43)
--- NOTE | 2017-08-09 11:17 | PN ---
Subjective Date of Service: 08/09/17 Interval History: Patient seen and examined at bedside. On baseline oxygen, reports breathing feels better. Has concern, as she reports "a bag full of blood" out of her ostomy last night x 1 episode. No further bleeding noted. Streaks of blood are visible in the bag. Denies any abd pain, n/v. Reports one prior incident about a month ago while on warfarin but states that no workup was done by her doctors. Tele: Afib [id number] Family History: Unchanged from Admission Social History: Unchanged from Admission Past Medical History: Unchanged from Admission Objective Active Medications: Acetaminophen (Tylenol Tab*) 650 mg PO Q4H PRN PRN Reason: FEVER/PAIN Last Admin: 08/08/17 07:01 Dose: 650 mg Hydrocodone Bitart/Acetaminophen ([place] 5-325 Tab*) 1 tab PO Q4H PRN PRN Reason: PAIN Last Admin: 08/06/17 21:34 Dose: 1 tab Albuterol (Ventolin Hfa Inhaler*) 2 puff INH Q4H PRN PRN Reason: SOB/WHEEZING Last Admin: 08/05/17 04:19 Dose: 2 puff Alprazolam (Xanax Tab*) 0.25 mg PO Q8H PRN PRN Reason: ANXIETY Last Admin: 08/04/17 21:31 Dose: 0.25 mg Aspirin (Aspirin Ec Low Dose*) 81 mg PO DAILY [facility] Last Admin: 08/09/17 08:27 Dose: 81 mg Atorvastatin Calcium (Lipitor*) 80 mg PO DAILY [facility] Last Admin: 08/09/17 08:27 Dose: 80 mg Dextrose (D50w Syringe 50 Ml*) 12.5 gm IV PUSH .FOR FS < 60 - SS PRN PRN Reason: FS < 60 Diltiazem HCl (Cardizem Cd Cap*) 240 mg PO DAILY [facility] Last Admin: 08/09/17 08:28 Dose: 240 mg Ezetimibe (Zetia Tab*) 10 mg PO DAILY [facility] Last Admin: 08/09/17 08:28 Dose: 10 mg Enoxaparin Sodium (Lovenox(*)) 100 mg SUBCUT 0600,1800 [facility] Last Admin: 08/09/17 05:39 Dose: 100 mg Ferrous Sulfate (Ferrous Sulfate Tab*) 325 mg PO DAILY [facility] Last Admin: 08/09/17 08:29 Dose: 325 mg Guaifenesin/Codeine Phosphate (Robitussin Ac 100mg-10mg*) 5 ml PO Q6H PRN PRN Reason: COUGH Last Admin: 08/05/17 04:27 Dose: 5 ml Insulin Human Lispro (Humalog*) 0 units SUBCUT ACHS JL PRN Reason: Protocol Last Admin: 08/09/17 08:13 Dose: Not Given Levothyroxine Sodium (Synthroid Tab*) 200 mcg PO DAILY@0600 [facility] Last Admin: 08/09/17 05:39 Dose: 200 mcg Metformin HCl (Glucophage*) 500 mg PO 0800,1700 [facility] Last Admin: 08/09/17 08:27 Dose: 500 mg Metoprolol Tartrate (Lopressor Tab*) 100 mg PO DAILY [facility] Last Admin: 08/09/17 08:28 Dose: 100 mg Mometasone Furoate (Asmanex 220 Mcg Mdi *) 1 puff INH QPM [facility] Last Admin: 08/08/17 19:25 Dose: 1 puff Ondansetron HCl (Zofran Inj*) 4 mg IV Q4H PRN PRN Reason: NAUSEA/VOMITING Last Admin: 08/03/17 18:16 Dose: 4 mg Prednisone (Deltasone Tab*) 30 mg PO DAILY [facility] Last Admin: 08/09/17 08:29 Dose: 30 mg Pregabalin (Lyrica Cap(*)) 50 mg PO BEDTIME [facility] Last Admin: 08/08/17 22:00 Dose: 50 mg Sertraline HCl (Zoloft*) 200 mg PO DAILY [facility] Last Admin: 08/09/17 08:27 Dose: 200 mg Tiotropium [place] (Spiriva Cap.Inh*) 1 cap INH DAILY [facility] Last Admin: 08/09/17 08:43 Dose: 1 cap Torsemide (Demadex*) 40 mg PO DAILY [facility] Last Admin: 08/09/17 08:27 Dose: 40 mg Trazodone HCl (Desyrel Tab*) 100 mg PO BEDTIME [facility] Last Admin: 08/08/17 22:00 Dose: 100 mg Warfarin Sodium (Coumadin Tab(*)) 3 mg PO DAILY@1700 J[facility] PRN Reason: Protocol Last Admin: 08/08/17 17:11 Dose: 3 mg Warfarin Sodium (Coumadin Tab(*)) 4 mg PO DAILY@1700 [facility] PRN Reason: Protocol Last Admin: 08/08/17 17:11 Dose: 4 mg Vital Signs - 8 hr 08/09/17 08/09/17 08/09/17 04:05 07:21 08:44 Temperature 97.3 F 97.2 F Pulse Rate 72 60 54 Respiratory 18 16 18 Rate Blood Pressure 137/67 133/77 (mmHg) O2 Sat by Pulse 98 98 96 Oximetry Oxygen Devices in Use Now: Nasal Cannula Appearance: Chronically ill appearing female, OOB to chair, NAD Eyes: PERRLA Ears/Nose/Mouth/Throat: Clear Oropharnyx, Mucous Membranes Moist Neck: NL Appearance and Movements; NL JVP Respiratory: Symmetrical Chest Expansion and Respiratory Effort, - - diminished breath sounds, fair aeration throughout Cardiovascular: - - irregularly irregular, BLE edema Abdominal: NL Sounds; No Tenderness; No Distention, - - ostomy with streaks of bright red blood Extremities: No Clubbing, Cyanosis Neurological: Alert and Oriented x 3, NL Muscle Strength and Tone Lines/Tubes/Other Access: Clean, Dry and Intact Peripheral IV Nutrition: Taking PO's Result Diagrams: 08/09/17 05:26 08/07/17 06:00 Additional Lab and Data: Lab Results 08/03/17 08/03/17 08/03/17 Range/Units 12:00 12:00 12:00 WBC 7.3 (3.5-10.8) 10^3/ul RBC 4.65 (4.0-5.4) 10^6/ul Hgb 12.7 (12.0-16.0) g/dl Hct 39 (35-47) % MCV 84 (80-97) fL MCH 27 (27-31) pg MCHC 33 (31-36) g/dl RDW 18 H (10.5-15) % Plt Count 180 (150-450) 10^3/ul MPV 9 (7.4-10.4) um3 Neut % (Auto) 63.8 (38-83) % Lymph % (Auto) 17.9 L (25-47) % [place] % (Auto) 17.5 H (0-7) % Eos % (Auto) 0.1 (0-6) % Baso % (Auto) 0.7 (0-2) % Absolute Neuts (auto) 4.6 (1.5-7.7) 10^3/ul Absolute Lymphs (auto) 1.3 (1.0-4.8) 10^3/ul Absolute Monos (auto) 1.3 H (0-0.8) 10^3/ul Absolute Eos (auto) 0 (0-0.6) 10^3/ul Absolute Basos (auto) 0.1 (0-0.2) 10^3/ul Absolute Nucleated RBC 0 10^3/ul Nucleated RBC % 0 INR (Anticoag Therapy) 1.10 H (0.77-1.02) APTT 26.2 (26.0-36.3) seconds D-Dimer, Quantitative 492 H (Less Than 230) ng/mL Sodium (133-145) mmol/L Potassium (3.5-5.0) mmol/L Chloride (101-111) mmol/L Carbon Dioxide (22-32) mmol/L Anion Gap (2-11) mmol/L BUN (6-24) mg/dL Creatinine (0.51-0.95) mg/dL Est GFR ( Amer) (>60) Est GFR (Non-Af Amer) (>60) BUN/Creatinine Ratio (8-20) Glucose (70-100) mg/dL Lactic Acid (0.5-2.0) mmol/L Calcium (8.6-10.3) mg/dL Magnesium (1.9-2.7) mg/dL Total Bilirubin (0.2-1.0) mg/dL AST (13-39) U/L ALT (7-52) U/L Alkaline Phosphatase (34-104) U/L Total Creatine Kinase (10-223) U/L CK-MB (CK-2) (0.6-6.3) ng/mL Troponin I (<0.04) ng/mL C-Reactive Protein (< 5.00) mg/L B-Natriuretic Peptide 514 H ( - 100) pg/mL Total Protein (6.4-8.9) g/dL Albumin (3.2-5.2) g/dL Globulin (2-4) g/dL Albumin/Globulin Ratio (1-3) Lipase (11.0-82.0) U/L Procalcitonin (<0.6) ng/mL TSH (0.34-5.60) mcIU/mL Free T4 (0.61-1.12) ng/dL Free T3 (2.5-3.9) pg/mL Urine Color Urine Appearance Urine pH (5-9) Ur Specific [place] (1.010-1.030) Urine Protein (Negative) Urine Ketones (Negative) Urine Blood (Negative) Urine Nitrate (Negative) Urine Bilirubin (Negative) Urine Urobilinogen (Negative) Ur Leukocyte Esterase (Negative) Urine WBC (Auto) (Absent) Urine RBC (Auto) (Absent) Ur Squamous Epith Cells (Absent) Urine Bacteria (Absent) Urine Glucose (Negative) Digoxin (0.8-2.0) ng/ml 08/03/17 08/03/17 08/03/17 Range/Units 12:00 12:00 12:00 WBC (3.5-10.8) 10^3/ul RBC (4.0-5.4) 10^6/ul Hgb (12.0-16.0) g/dl Hct (35-47) % MCV (80-97) fL MCH (27-31) pg MCHC (31-36) g/dl RDW (10.5-15) % Plt Count (150-450) 10^3/ul MPV (7.4-10.4) um3 Neut % (Auto) (38-83) % Lymph % (Auto) (25-47) % [place] % (Auto) (0-7) % Eos % (Auto) (0-6) % Baso % (Auto) (0-2) % Absolute Neuts (auto) (1.5-7.7) 10^3/ul Absolute Lymphs (auto) (1.0-4.8) 10^3/ul Absolute Monos (auto) (0-0.8) 10^3/ul Absolute Eos (auto) (0-0.6) 10^3/ul Absolute Basos (auto) (0-0.2) 10^3/ul Absolute Nucleated RBC 10^3/ul Nucleated RBC % INR (Anticoag Therapy) (0.77-1.02) APTT (26.0-36.3) seconds D-Dimer, Quantitative (Less Than 230) ng/mL Sodium 132 L (133-145) mmol/L Potassium 3.7 (3.5-5.0) mmol/L Chloride 96 L (101-111) mmol/L Carbon Dioxide 30 (22-32) mmol/L Anion Gap 6 (2-11) mmol/L BUN 17 (6-24) mg/dL Creatinine 1.01 H (0.51-0.95) mg/dL Est GFR ( Amer) 70.5 (>60) Est GFR (Non-Af Amer) 54.8 (>60) BUN/Creatinine Ratio 16.8 (8-20) Glucose 128 H (70-100) mg/dL Lactic Acid 0.9 (0.5-2.0) mmol/L Calcium 9.1 (8.6-10.3) mg/dL Magnesium 1.7 L (1.9-2.7) mg/dL Total Bilirubin 0.80 (0.2-1.0) mg/dL AST 19 (13-39) U/L ALT 18 (7-52) U/L Alkaline Phosphatase 64 (34-104) U/L Total Creatine Kinase 48 (10-223) U/L CK-MB (CK-2) 0.5 L (0.6-6.3) ng/mL Troponin I 0.01 (<0.04) ng/mL C-Reactive Protein 35.23 H (< 5.00) mg/L B-Natriuretic Peptide ( - 100) pg/mL Total Protein 7.8 (6.4-8.9) g/dL Albumin 3.4 (3.2-5.2) g/dL Globulin 4.4 H (2-4) g/dL Albumin/Globulin Ratio 0.8 L (1-3) Lipase 271 H (11.0-82.0) U/L Procalcitonin < 0.1 (<0.6) ng/mL TSH 0.22 L (0.34-5.60) mcIU/mL Free T4 1.37 H (0.61-1.12) ng/dL Free T3 2.80 (2.5-3.9) pg/mL Urine Color Urine Appearance Urine pH (5-9) Ur Specific [place] (1.010-1.030) Urine Protein (Negative) Urine Ketones (Negative) Urine Blood (Negative) Urine Nitrate (Negative) Urine Bilirubin (Negative) Urine Urobilinogen (Negative) Ur Leukocyte Esterase (Negative) Urine WBC (Auto) (Absent) Urine RBC (Auto) (Absent) Ur Squamous Epith Cells (Absent) Urine Bacteria (Absent) Urine Glucose (Negative) Digoxin 0.6 L (0.8-2.0) ng/ml 08/03/17 Range/Units 12:40 WBC (3.5-10.8) 10^3/ul RBC (4.0-5.4) 10^6/ul Hgb (12.0-16.0) g/dl Hct (35-47) % MCV (80-97) fL MCH (27-31) pg MCHC (31-36) g/dl RDW (10.5-15) % Plt Count (150-450) 10^3/ul MPV (7.4-10.4) um3 Neut % (Auto) (38-83) % Lymph % (Auto) (25-47) % [place] % (Auto) (0-7) % Eos % (Auto) (0-6) % Baso % (Auto) (0-2) % Absolute Neuts (auto) (1.5-7.7) 10^3/ul Absolute Lymphs (auto) (1.0-4.8) 10^3/ul Absolute Monos (auto) (0-0.8) 10^3/ul Absolute Eos (auto) (0-0.6) 10^3/ul Absolute Basos (auto) (0-0.2) 10^3/ul Absolute Nucleated RBC 10^3/ul Nucleated RBC % INR (Anticoag Therapy) (0.77-1.02) APTT (26.0-36.3) seconds D-Dimer, Quantitative (Less Than 230) ng/mL Sodium (133-145) mmol/L Potassium (3.5-5.0) mmol/L Chloride (101-111) mmol/L Carbon Dioxide (22-32) mmol/L Anion Gap (2-11) mmol/L BUN (6-24) mg/dL Creatinine (0.51-0.95) mg/dL Est GFR ( Amer) (>60) Est GFR (Non-Af Amer) (>60) BUN/Creatinine Ratio (8-20) Glucose (70-100) mg/dL Lactic Acid (0.5-2.0) mmol/L Calcium (8.6-10.3) mg/dL Magnesium (1.9-2.7) mg/dL Total Bilirubin (0.2-1.0) mg/dL AST (13-39) U/L ALT (7-52) U/L Alkaline Phosphatase (34-104) U/L Total Creatine Kinase (10-223) U/L CK-MB (CK-2) (0.6-6.3) ng/mL Troponin I (<0.04) ng/mL C-Reactive Protein (< 5.00) mg/L B-Natriuretic Peptide ( - 100) pg/mL Total Protein (6.4-8.9) g/dL Albumin (3.2-5.2) g/dL Globulin (2-4) g/dL Albumin/Globulin Ratio (1-3) Lipase (11.0-82.0) U/L Procalcitonin (<0.6) ng/mL TSH (0.34-5.60) mcIU/mL Free T4 (0.61-1.12) ng/dL Free T3 (2.5-3.9) pg/mL Urine Color Yellow Urine Appearance Clear Urine pH 5.0 (5-9) Ur Specific [place] 1.021 (1.010-1.030) Urine Protein Negative (Negative) Urine Ketones Negative (Negative) Urine Blood 1+ A (Negative) Urine Nitrate Negative (Negative) Urine Bilirubin Negative (Negative) Urine Urobilinogen Negative (Negative) Ur Leukocyte Esterase Negative (Negative) Urine WBC (Auto) Trace(0-5/hpf) (Absent) Urine RBC (Auto) 1+(3-5/hpf) A (Absent) Ur Squamous Epith Cells Present A (Absent) Urine Bacteria Absent (Absent) Urine Glucose Negative (Negative) Digoxin (0.8-2.0) ng/ml Microbiology and Other Data: Microbiology 08/03/17 18:32 Nasal Screen MRSA (PCR)([facility]) - Final Nasal Mrsa Not Detected 08/03/17 14:35 Influenza Types A,B Antigen ([facility]) - Final Nasal Specimen received for Influenza A/B Molecular testing Assess/Plan/Problems-Billing Assessment: 66 yo female with h/o afib on coumadin, hx of distant PE, DM, colostomy(h/o bowel obstruction), porcine AVR, CABG who presents with SOB, Influenza B, A. fib with RVR - Patient Problems (1) GI bleed Code(s): K92.2 - GASTROINTESTINAL HEMORRHAGE, UNSPECIFIED Comment: Reported bright red blood from ostomy bag last night, none this AM HH stable Lovenox d/c'd, coumadin held Plan to consult surgery, GI (2) Influenza B Code(s): J10.1 - FLU DUE TO OTH IDENT INFLUENZA VIRUS W OTH RESP MANIFEST Comment: Treated with [place] Clinically, pt has Influenza B pneumonia of right lung Suspect it was present on admission (3) Atrial fibrillation with RVR Code(s): I48.91 - UNSPECIFIED ATRIAL FIBRILLATION Comment: Now rate controlled. Sinus pauses not longer than [address] Waddell's recommendations: no indications for pacer, d/c digoxin, start metoprolol succinate 100 mg qAM Overnight pulse oximetry showed no significant desaturations, pt will need a formal sleep study as outpatient (4) Acute on chronic respiratory failure with hypoxemia Code(s): J96.21 - ACUTE AND CHRONIC RESPIRATORY FAILURE WITH HYPOXIA Comment: Now on home settings of 2.5Lnc Resolved (5) COPD (chronic obstructive pulmonary disease) Code(s): J44.9 - CHRONIC OBSTRUCTIVE PULMONARY DISEASE, UNSPECIFIED Comment: With exacerbation Cont Prednisone, 30 mg today Improving (6) DM2 (diabetes mellitus, type 2) Comment: Cont ISS Diet controlled at home. Now uncontrolled, due to steroids HbA1C 7.6 Discussed with patient, plan to start metformin here and d/c home with medication. (7) HTN (hypertension) Code(s): I10 - ESSENTIAL (PRIMARY) HYPERTENSION Comment: Controlled, continue diltiazem and metoprolol. (8) Heart failure with preserved ejection fraction Code(s): I50.9 - HEART FAILURE, UNSPECIFIED Comment: Euvolemic, cont torsemide Chronic diastolic, Echo shows EF 50-55%, with mod MR, severe LVH and bioprosthetic aortic valve present (9) Hypothyroidism (acquired) Code(s): E03.9 - HYPOTHYROIDISM, UNSPECIFIED Comment: Continue levothyroxine. TSH at 0.22 at admission, but will not adjust the Synthroid for now Recommend checking it in 1-2 weeks once pt feels better. (10) DVT prophylaxis Comment: Hold Lovenox and warfarin in the presence of new GIB Status and Disposition: Inpatient
--- NOTE | 2017-08-09 15:54 | CONS ---
CC: Dr. Simons; [facility] * SURGICAL CONSULTATION REPORT: DATE OF CONSULT: The patient seen in hospital bed on 08/09/17. HISTORY OF PRESENT ILLNESS: The surgical department was contacted by the hospitalist service to evaluate Ms. Ziegler, a 66-year-old female well known to me, after undergoing a diverting loop transverse colostomy approximately 3 years ago for severe constipation and concern for possibility of perforation. The patient had significant comorbidities at that time and decision was made for diversion and she ultimately was discharged in the hospital, was followed up as an outpatient in my offices as recently a year ago, where she was planned reversal of colostomy and partial colectomy of a stenotic portion of her descending colon. Plan was for the patient to lose weight leading up to surgery , she indeed gained weight and procedure was held. She did not follow with [facility] for [facility] and then ultimately remained home. She lives with her son. She cares for her own colostomy. The patient was admitted on 08/03/17, with a diagnosis of worsening shortness of breath and concern for pneumonia. The patient has been improving while in the hospital and is now for planned discharge tomorrow. The patient was noted in the overnight period to have a bloody output per her colostomy. She showed no signs of anemia or hypotension during this time. The patient had been placed back on Coumadin recently with finally a therapeutic INR this morning. When I discussed with the patient, she states that this bleeding from the colostomy bag has happened in the past, usually it will happen about the third or fourth day after she starts Coumadin. Often the Coumadin will be stopped, only to be restarted. She did have 2 bleeding episodes within the past month, the one prior to this was about 6 months ago. The patient denies any lightheadedness during these occasions. The patient does have some lower abdominal pain at times. Denies any bowel movements per rectum. PAST MEDICAL HISTORY: Reviewed. Afib, on Coumadin. PAST SURGICAL HISTORY: Briefly reviewed. REVIEW OF SYSTEMS: Abdominal pain as described. Continued to have COPD, on oxygen at home. She did quit smoking approximately 2 years ago. She feels she has gained weight since our last visit and indeed, she weighs 237 pounds today. Reviewing our chart through the office, she was 232 pounds leading up to surgery, only representing a 5-pound weight gain. However, this was 20 pounds up from when surgery was considered. PHYSICAL EXAMINATION: She is afebrile. Vital signs are stable. Blood pressure 133/77, pulse 60. She is alert and oriented x3. She is in no apparent distress. She is sitting up and eating breakfast. O2 nasal cannula in place. Not using accessory muscles. Abdomen is soft, obese, nontender. Double barrel colostomy in the upper abdomen is appreciated. The appliance is on appropriately. There is no evidence of bleeding in the bag. The bag is removed and the wafer was kept in place. I reviewed the edges and the mucosal edges of the colostomy and they appeared intact and the appliance was reapplied. Healed incisions. Parastomal hernia is appreciated. LABORATORY DATA: Labs are reviewed and show no evidence of anemia. INR is 2.37. IMPRESSION: This is a 66-year-old female who suffers with morbid obesity with chronic obstructive pulmonary disease, on home oxygen, with atrial fibrillation on Coumadin who shows recurrent GI bleed. This does represent relative contraindication of Coumadin use and perhaps it is best to hold the Coumadin. I was not able to discuss the risks of holding this, however, with the patient. Again she may want to reconsider weight loss and colostomy reversal with partial colectomy and hernia repair. This would represent a large surgery, certainly something we can do through our offices and she can be referred to [facility]. I believe she could lose 25 pounds as a goal weight, representing 10% of her body weight. We would be able to schedule her for this complex procedure. She certainly would require hospice care after it and the patient understands this would be at least a 7-day admission. It does not appear the patient's hemoglobin drops with these episodes and if they only start approximately the third day after starting Coumadin, then perhaps we can wait. I will defer this to the hospitalist service as well as the glove former as far as what to do next with the Coumadin in the short term. Regarding the animal technician, I will be happy to see Ms. Ziegler in my offices to consider her for abdominal surgery, this is not necessary on this admission, and again the patient will have to lose weight leading up to surgery. [id number]/[facility] #: [id number] [facility]
[2017-08-09] MEDS: Mometasone 220 MCG MDI INH SCH (19:47)
[2017-08-09] MEDS: traZODone TAB* 50 MG TAB PO SCH (22:09)
[2017-08-09] MEDS: Pregabalin CAP(*) 50 MG PO SCH (22:09)
--- NOTE | 2017-08-10 00:18 | CONS ---
GASTROENTEROLOGY CONSULT: DATE: 08/09/17 CONSULTING PHYSICIAN: Dr. Renzo Leal. REASON FOR CONSULT: Bleeding per her colostomy stoma after reinstitution of warfarin during this hospitalization for influenza B. HISTORY OF PRESENT ILLNESS: This 66-year-old woman with atrial fibrillation, COPD, and a colostomy, double barrel, in place for 3 years since a GI obstruction event, was seen in consultation by Dr. Waddell for Cardiology. She was restarted on warfarin and as the INR hit 2.36 last night, she began passing some blood. It was described as profuse during the overnight shift though there was no change in vital signs and her hemoglobin did not fall and remained at 12.7. Today, she has not passed any blood and indeed there has been relatively little effluent into the ostomy. Her nurse, Leodan, confirms all of this. She states that at home several times over the last 6 months, warfarin has been reinstituted and after a week or three, she will develop some bleeding and it will be stopped. She has never had a thromboembolic phenomena or blood clot or stroke. She says her mother had strokes but she does not recall any discussion of blood clots. PAST MEDICAL HISTORY: 1. Obesity. 2. Status post mid transverse double-barrel colostomy 2014- this was endoscoped June 2015 from 3 directions, up and down from the ostomy and 1 from the rectum with a narrow area in the mid sigmoid colon being tight and not definitively traversed. She also had some erythema in the mid right colon ( passing cephalad from the ostomy), though there was no definitive pathology there and no active bleeding. 3. Atrial fibrillation. 4. Porcine aortic valve replacement in 2009. 5. Obstructive sleep apnea - not using CPAP. 6. Type 2 diabetes. 7. Coronary artery bypass, 2009. 8. Status post cholecystectomy. 9. Status post appendectomy. 10. Ventral hernia repair. MEDICATIONS: Of GI relevance include aspirin 81, diltiazem CD 240, ferrous sulfate 325, spironolactone 25, Zoloft 100, Coumadin dose varies. PRIMARY CARE PHYSICIANS: She sees Dr Simons monthly and Dr. Sanders quarterly. REVIEW OF SYSTEMS: Quit smoking 3 years ago. No history of hepatitis, biliary colic, hematuria, new skin rash, falls, or fever. She was positive influenza B on admission. PHYSICAL EXAM: She is a chronically ill-appearing, substantially overweight woman, in no distress. She has eaten half her dinner. HEENT exam is unremarkable. She has atrial fibrillation. There is no adenopathy. Breath sounds are somewhat raspy. Heart sounds are irregular. The abdomen has a midline ostomy with brown liquid stool. Extremities show hyperpigmentation appearing consistent with venous stasis bilaterally. Popliteal pulses are intact. Neuro: Normal. LABORATORY DATA: CBC today, hemoglobin 12.7, hematocrit 39, MCV 85, platelets 160. INR 2.37, having risen over the last 4 days from 1.91, 1.34, and 1.06. It is notable August 2016, she presented with an INR of 6.73. IMPRESSION: This 66-year-old woman presents with a therapeutic dilemma. She has chronic atrial fibrillation and yet recent attempts to start warfarin have been frustrated by bleeding fairly early on. She is not aware of the INRs ( monitored at the [place] office) around the time of recent bleeding events but there's been no mention of a high INR. She does seem quite sensitive and quickly responsive to warfarin. It appears that it has always been relatively modest bleeding but probably not sustainable. Source of it is probably the stoma itself or nonspecific areas of irritation. The probability of a colonoscopy discovering treatable source that would allow warfarin to be given smoothly and without problems is small but not zero. When she is recovered from this, if she elects to try an outpatient colonoscopy at the hospital, it could be attempted. Again, the odds of definitive therapeutic benefits are relatively small. Even so, it appears that she is quite sensitive to warfarin, as without any particular booster dose she was therapeutic in 4 days. [id number]/[facility] #: [id number] [facility]
[2017-08-10] MEDS: Levothyroxine TAB* 100 MCG TAB PO SCH (06:08)
[2017-08-10] MEDS: Insulin LISPRO* 1 UNITS UNIT SUBCUT SCH ×2 (07:33→12:05)
[2017-08-10] MEDS: Ezetimibe TAB* 10 MG PO SCH (08:18)
[2017-08-10] MEDS: Torsemide TAB* 20 MG PO SCH (08:18)
[2017-08-10] MEDS: Sertraline* 100 MG TAB PO SCH (08:18)
[2017-08-10] MEDS: Ferrous Sulfate TAB* 325 MG PO SCH (08:19)
[2017-08-10] MEDS: metFORMIN* 500 MG TAB PO SCH (08:19)
[2017-08-10] MEDS: predniSONE TAB* 10 MG PO SCH (08:19)
[2017-08-10] MEDS: Atorvastatin* 80 MG TAB PO SCH (08:19)
[2017-08-10] MEDS: Metoprolol Tartrate TAB* 50 mg PO SCH (08:19)
[2017-08-10] MEDS: Diltiazem CD CAP* 240 MG PO SCH (08:19)
[2017-08-10] MEDS: Tiotropium CAP.INH* CAP.INH/18 MCG (USE ORDER SET !) INH SCH (08:28)
[2017-08-10 11:37] VITALS: BP 105/70
--- NOTE | 2017-08-11 10:25 | DS ---
CC: Dr. Simons; Dr. Berny Sanders; Dr. Yara Kim. * MEDICINE DISCHARGE SUMMARY: DATE OF ADMISSION: 08/03/17 DATE OF DISCHARGE: 08/10/17 PROVIDER: Kathe Alcaraz NP. ATTENDING PHYSICIAN: Dr. Lupe Ontiveros, DO * (as dictated by Kathe Alcaraz NP). CONSULTING PHYSICIANS: Cardiology: Dr. Nestor Waddell. Surgery: Dr. Nestor Jackson. Gastroenterology: Dr. Hubert Huerta. PRIMARY CARE PROVIDER: Dr. Simons. PRIMARY SUPERVISOR METAL FURNITURE ASSEMBLY: Dr. Berny Sanders. PRIMARY CASE INVESTIGATOR: Dr. Yara Kim. PRIMARY DISCHARGE DIAGNOSES: 1. Influenza B with suspected pneumonia. 2. Atrial fibrillation with rapid ventricular response. 3. Gastrointestinal bleeding from ostomy. 4. Diabetes mellitus with a hemoglobin A1c of 7.6. SECONDARY DISCHARGE DIAGNOSES: 1. Chronic respiratory failure, on 2.5 L of oxygen at home. 2. History of diastolic heart failure. 3. Chronic obstructive pulmonary disease with chronic respiratory failure. 4. History of porcine aortic valve replacement in 2009. 5. On chronic anticoagulation for atrial fibrillation and aortic valve replacement, now on hold secondary to gastrointestinal bleeding. 6. Right lower extremity deep venous thrombosis approximately 10 years ago. 7. History of obstructive sleep apnea. 8. History of bowel obstruction, requiring colostomy. 9. Coronary artery disease with coronary artery bypass grafting in 2009. 10. Hyperlipidemia. 11. Hypothyroidism. 12. Peripheral vascular disease. 13. Gastroesophageal reflux disease. 14. History of ventral hernia repair. MEDICATIONS AT DISCHARGE: 1. EpiPen 0.3 mg IM once p.r.n. 2. Spironolactone 25 mg daily. 3. Pregabalin 50 mg at bedtime. 4. Levothyroxine 200 mcg daily. 5. Ferrous sulfate 325 mg daily. 6. Albuterol inhaler 2 puffs inhaled q. 4 hours p.r.n. 7. Trazodone 100 mg at bedtime. 8. Torsemide 40 mg daily. 9. Tiotropium 1 capsule inhaled daily. 10. Sertraline 200 mg daily. 11. [place] 5/325 one tab q. 4 hours p.r.n. 12. Fluticasone 2 puffs inhaled b.i.d. 13. Zetia 10 mg daily. 14. Diltiazem 240 mg daily. 15. Atorvastatin 80 mg daily. 16. Aspirin 81 mg daily, currently on hold to resume on Tuesday with no recurrence of bleeding. 17. Prednisone taper, the patient is to take 20 mg starting on 08/11/17 x3 days and 10 mg x3 days and discontinue. 18. Metformin 500 mg with breakfast and dinner. This is a new medication. 19. Metoprolol tartrate 100 mg q. a.m. This is a change in dosing. Please note, the patient's warfarin is on hold secondary to bleeding from the patient's colostomy. The patient has been prescribed p.r.n. albuterol nebulizer treatments to be used with home nebulizer machine which is being arranged through [facility]. HOSPITAL COURSE OF STAY: For full details please refer to the H and P provided by Dr. Leal on 08/03/17. In summary Ms. Ziegler is a 66-year-old female who presented to the ER with concern for shortness of breath, nausea, and vomiting. She was found to be in atrial fibrillation with RVR and was also found to be in acute COPD exacerbation secondary to influenza. We did appreciate a cardiology consult from Dr. Waddell due to difficulties with rate control and management of the patient's AFib. The patient's medications were titrated and adjusted with the patient's digoxin being discontinued at this time and being titrated down to metoprolol 100 mg q. a.m. only as the patient was noted to have lower heart rates and blood pressures in the evening time. Ms. Ziegler did respond well to therapies which did include Tamiflu and again medication adjustments for her atrial fibrillation, we were able to achieve good rate control on the current regimen as listed above in her discharge medications. These have also been reviewed with Dr. Sanders who is her primary administration clerk who will continue to follow the patient and make adjustments as appropriate. Ms. Ziegler was able to get back to her baseline oxygen requirements and was preparing for discharge on 08/09/17; however, on the evening of 08/08/17 the patient reports having a significant amount of blood that came out of her ostomy that evening. During her course of hospitalization she was on warfarin, although she did come in subtherapeutic on her dose. She was anticoagulated with subcu Lovenox to get her to a therapeutic level given her presentation and became therapeutic with her last INR noted at 2.37 on 08/09/17. However, she did report bleeding that occurred x1 episode with some scant blood noted in her ostomy bag the following day on . She does report that she has had intermittent bleeding from the ostomy and notes that typically when she is restarted back on her warfarin that she tends to bleed. I did notify the patient's surgeon initially who did a colostomy and Dr. Pérez who saw the patient in consultation; he recommended to hold the warfarin, consulting GI which was also done. Dr. Huerta did see her in consultation as well and felt that the patient may benefit from an outpatient colonoscopy. He notes that the probability of a colonoscopy describing a treatable source is small but it may be worthwhile given the patient's presentation. In any event, the patient's warfarin and aspirin have been held, her Lovenox has since been discontinued. She has had no further episodes of bleeding and her H and H have remained stable. I do note that her H and H was stable even after the reported bleed the night before. In any event , the patient was told that she may resume her aspirin on Tuesday08/12/17 should she have no further episodes of bleeding and should continue to hold her warfarin until she is able to follow up with her PCP and/or Dr. Sanders. Otherwise, the patient is doing well with no other acute concerns. I do note that the patient states that she has a history of borderline diabetes. We did check her A1c here in the hospital and notes that it is 7.6. I am not sure what her previous A1c was, but I did discuss with the patient the concern that this is above the borderline criteria and that she would benefit from diet and medication treatment of her diabetes. I do recognize that she most likely has elevated blood sugars here in the hospital secondary to steroids , but I do suspect that she also could utilize some medication therapy to help better control her diabetes. She has been receiving metformin 500 mg b.i.d. with meals here and has been tolerating this well. Her fasting blood sugars since starting the metformin have been 104 and 117 in the past 2 days. I have also ordered her diabetes education through [facility] which is pending. She will continue on the metformin and she is in agreement with this plan. OUTPATIENT FOLLOWUP NEEDS: Again Ms. Ziegler has been referred to [facility] for further diabetes education. She is continuing her metformin and this can be addressed and adjusted with her PCP. She has been ordered a nebulizer machine which should be delivered for use at home as this will be beneficial given her history of COPD, heart failure, and chronic hypoxic respiratory failure. She is to follow up with cardiology regarding her medication adjustments and the cardiology office will work on getting her in as soon as possible. She should follow up with for evaluation of bleeding from her ostomy. PHYSICAL EXAMINATION: On physical examination, Vital Signs: Temperature 97.6, pulse rate 78, respiratory rate 18, blood pressure 130/76, O2 saturation is 98% on 2.5 L nasal cannula. General: This is a chronically ill-appearing but very pleasant female sitting up in the chair in no acute distress. HEENT: Pupils are equal, round, and reactive to light. Extraocular movements intact. Oral mucosa is moist. Neck is supple. No JVD noted. Cardiac: S1 and S2 heart sounds. Irregularly irregular rate and rhythm. No murmurs appreciated. The patient does have 1+ bilateral lower extremity edema. Lungs: Diminished, but no wheezing, rales, or rhonchi noted. Abdomen is soft and nontender. There is colostomy with brown stool and a beefy-red stoma to the mid left abdomen. Bowel sounds are normoactive. There is no tenderness. Extremities: No clubbing or cyanosis. The patient had chronic venostasis changes. Neuro: She is alert and oriented x3. No focal deficits noted. DIET: Heart-healthy, no added sugar, consistent carbohydrate diet. ACTIVITY: As tolerated. CONDITION: Improved, stable. DISPOSITION: To home. TIME SPENT: Time spent on this discharge was approximately 45 minutes. This is only a brief summary of the patient's extended hospital course of stay, for full details please refer to the full medical record. If you have any further questions or need further assistance please feel free to contact me at [phone]. KATHE ALCARAZ NP [id number]/CPS #: [id number] SERENA
== END 2017-08-10 14:30 | disposition home or self-care (01) | DRG 190 ==
LOC: ED 11:19 → ICU 13:31 → MEDTELE 08-07 11:52
PROVIDERS: ADMIT Internal Medicine; ATTEND Internal Medicine
DX: J44.0 Chronic obstructive pulmonary disease with (acute) lower respiratory infection (principal); J10.00 Influenza due to other identified influenza virus with unspecified type of pneumonia; J96.21 Acute and chronic respiratory failure with hypoxia; I11.0 Hypertensive heart disease with heart failure; E11.51 Type 2 diabetes mellitus with diabetic peripheral angiopathy without gangrene; D68.32 Hemorrhagic disorder due to extrinsic circulating anticoagulants; I50.9 Heart failure, unspecified; M41.9 Scoliosis, unspecified; E66.01 Morbid (severe) obesity due to excess calories; I50.32 Chronic diastolic (congestive) heart failure; Z68.41 Body mass index [BMI] 40.0-44.9, adult; K94.01 Colostomy hemorrhage; I48.91 Unspecified atrial fibrillation; J44.1 Chronic obstructive pulmonary disease with (acute) exacerbation; E03.9 Hypothyroidism, unspecified; I25.10 Atherosclerotic heart disease of native coronary artery without angina pectoris; E78.00 Pure hypercholesterolemia, unspecified; K57.90 Diverticulosis of intestine, part unspecified, without perforation or abscess without bleeding; K21.9 Gastro-esophageal reflux disease without esophagitis; M19.012 Primary osteoarthritis, left shoulder; M19.011 Primary osteoarthritis, right shoulder; Z96.642 Presence of left artificial hip joint; G47.33 Obstructive sleep apnea (adult) (pediatric); G89.29 Other chronic pain; I34.0 Nonrheumatic mitral (valve) insufficiency; J10.1 Influenza due to other identified influenza virus with other respiratory manifestations; F41.9 Anxiety disorder, unspecified; F32.9 Major depressive disorder, single episode, unspecified; Y84.8 Other medical procedures as the cause of abnormal reaction of the patient, or of later complication, without mention of misadventure at the time of the procedure; T38.0X5A Adverse effect of glucocorticoids and synthetic analogues, initial encounter; Y92.239 Unspecified place in hospital as the place of occurrence of the external cause; T45.515A Adverse effect of anticoagulants, initial encounter; Z98.51 Tubal ligation status; Z90.49 Acquired absence of other specified parts of digestive tract; Z95.2 Presence of prosthetic heart valve; Z95.1 Presence of aortocoronary bypass graft; Z88.8 Allergy status to other drugs, medicaments and biological substances; Z91.030 Bee allergy status; Z91.041 Radiographic dye allergy status; Z91.013 Allergy to seafood; Z86.718 Personal history of other venous thrombosis and embolism; Z86.711 Personal history of pulmonary embolism; Z87.442 Personal history of urinary calculi; Z86.14 Personal history of Methicillin resistant Staphylococcus aureus infection; Z87.891 Personal history of nicotine dependence; Z72.89 Other problems related to lifestyle; Z99.81 Dependence on supplemental oxygen; Z82.49 Family history of ischemic heart disease and other diseases of the circulatory system; Z93.3 Colostomy status; Z79.84 Long term (current) use of oral hypoglycemic drugs
CPT/HCPCS: 36415; 36600; 71045; 74019; 80048; 80053; 80162; 81003; 81015; 82270; 82550; 82553; 82803; 83036; 83605; 83630; 83690; 83735; 83880; 84145; 84439; 84443; 84481; 84484; 85025; 85027; 85379; 85610; 85730; 86140; 87040; 87045; 87046; 87077; 87086; 87328; 87329; 87493; 87502; 87641; 87899; 93005; 93306; 94640; 94760; 94762; 99284; 99406; A9270-GY; G8978-GP-CJ; G8980-GP-CJ; G8990-GO-CI; G8991-GO-CI; G8992-GO-CI; J0696; J1160; J1650; J2405; J2930; J3475; J3490; J7512

== ENCOUNTER 2017-09-08 11:37 | Inpatient (IN) | payer MEDICARE, MEDICAID ==
[2017-09-08] MEDS ORDERED: NS 0.9% 1000 ML* 1,000 ML IV ONE ×2 (11:57→16:49)
[2017-09-08 12:47] LABS: ABS Basophils 0 10^3/ul (0-0.2); ABS Eosinophils 0.1 10^3/ul (0-0.6); ABS Lymphocytes 1.4 10^3/ul (1.0-4.8); ABS Monocytes 1.1 10^3/ul (0-0.8); ABS Neutrophils 10.1 10^3/ul (1.5-7.7); ABS Nucleated RBC 0 10^3/ul; Eosinophil % 0.4 % (0-6); Hematocrit 31 % (35-47); Hemoglobin 9.6 g/dl (12.0-16.0); Lymphocyte % 11.1 % (25-47); Mean Corpuscular HGB Conc 31 g/dl (31-36); Mean Corpuscular Hemoglobin 27 pg (27-31); Mean Corpuscular Volume 85 fL (80-97); Mean Platelet Volume 8.3 um3 (7.4-10.4); Nucleated Red Blood Cells % 0.2; Platelet Count 303 10^3/ul (150-450); Red Blood Count 3.61 10^6/ul (4.0-5.4); Red Cell Distribution Width 18 % (10.5-15); White Blood Count 12.7 10^3/ul (3.5-10.8)
[2017-09-08 12:53] LABS: INR 1.35 (0.77-1.02)
--- NOTE | 2017-09-08 14:46 | RAD ---
HISTORY: Shortness of breath COMPARISONS: August 28, 2015 VIEWS: 1: frontal portable view of the chest at 12:49 PM FINDINGS: LINES AND TUBES: None. CARDIOMEDIASTINAL SILHOUETTE: The cardiac silhouette is enlarged. The cardiomediastinal silhouette is otherwise normal for portable technique. PLEURA: There is blunting of left costophrenic angle. LUNG PARENCHYMA: The lungs are clear. ABDOMEN: The upper abdomen is clear. There is no subphrenic gas. BONES AND SOFT TISSUES: The patient is status post median sternotomy. IMPRESSION: 1. CARDIOMEGALY. 2. SMALL LEFT PLEURAL EFFUSION.
[2017-09-08] MEDS ORDERED: Albuterol/Ipratropium NEB.SOL* Albuterol 2.5 MG/Ipratropium 0.5 MG 3 ML INH ONE (14:50)
[2017-09-08] MEDS ORDERED: Dextrose 50% Syringe 50 ML* 25 GM/50 ML SYRINGE IV PUSH PRN (16:36)
[2017-09-08] MEDS ORDERED: Ondansetron INJ* 2 MG/ML VIAL IV PRN (16:36)
[2017-09-08] MEDS ORDERED: Albuterol HFA INHALER* 8 gm MDI INH PRN (16:50)
[2017-09-08] MEDS ORDERED: diPHENhydraMINE PO* 50 MG PO ONE (17:00)
[2017-09-08] MEDS ORDERED: NS 0.9% 1000 ML* 1,000 ML IV SCH (17:00)
[2017-09-08] MEDS ORDERED: Azithromycin IV(*) 500 MG in D5W 250 ML BAG* 250 ML IVPB SCH (17:00)
[2017-09-08] MEDS ORDERED: predniSONE TAB* 50 MG PO ONE (17:00)
[2017-09-08] MEDS ORDERED: cefTRIAXone VIAL(*) 1,000 MG in NS 0.9% 50 ML* 50 ML IVPB SCH (17:00)
--- NOTE | 2017-09-08 17:42 | RAD ---
INDICATION: Left lower quadrant abdominal pain. COMPARISON: Comparison is made with a prior CT of the abdomen and pelvis from March 17, 2016. TECHNIQUE: A CT scan of the abdomen and pelvis was performed without intravenous or oral contrast. Contiguous axial sections were obtained from the lung bases through the symphysis pubis. Images were reconstructed in the coronal and sagittal planes. FINDINGS: There is a small left pleural effusion and dependent left lower lobe infiltrate. The heart is enlarged and increased in size from the prior study. The liver is mildly enlarged and without significant focal abnormality on this noncontrast study. The patient is status post cholecystectomy. The spleen and pancreas appear to be within normal limits. The adrenal glands and kidneys are normal in size. There is left perinephric stranding and mild left hydronephrosis. No renal calculi are seen. No ureteral or bladder calculi are noted. The aorta is normal in caliber with severe calcific plaque present. The stomach, small and large bowel appear nondistended. There is a large anterior abdominal wall hernia containing nondistended small and large bowel which appears similar to the prior study. There is an ostomy within the hernia. There is a heterogeneous mass present in the left lower quadrant located adjacent to the sigmoid colon measuring 5.7 x 6.0 x 6.1 cm. This has ill-defined margins with prominent interstitial stranding in the surrounding mesenteric fat. There is mild thickening of the wall of the adjacent sigmoid colon. The interstitial stranding also extends adjacent to the left ureter and left kidney and likely the cause of the mild left hydronephrosis. The uterus is anteverted and normal in size. No free intraperitoneal air or fluid is seen. The patient is status post total left hip replacement surgery. There is moderate to severe osteoarthritic change in the right hip. No significant focal osseous normality is seen. The results of this exam were called to referring clinician. IMPRESSION: 1. SMALL LEFT PLEURAL EFFUSION AND LEFT BASILAR FILTRATE. 2. LARGE MASS IN THE LEFT LOWER QUADRANT WITH PROMINENT SURROUNDING INTERSTITIAL STRANDING WHICH MAY BE REPRESENT A PHLEGMONOUS PROCESS. THE MASS HAS A LOW DENSITY CENTER AND MAY BE FORMING INTO AN ABSCESS. ALTERNATIVELY THIS MAY REPRESENT A MALIGNANT MASS. RECOMMEND CLINICAL CORRELATION AND FOLLOW-UP. 3. LARGE ANTERIOR ABDOMINAL WALL HERNIA CONTAINING NONDISTENDED SMALL BOWEL AND COLON, UNCHANGED. 4. MILD LEFT HYDRONEPHROSIS SECONDARY TO THE LEFT LOWER QUADRANT PROCESS.
--- NOTE | 2017-09-08 18:11 | RAD ---
INDICATION: Lower extremity edema. COMPARISON: Comparison is made with a prior study from August 23, 2016. TECHNIQUE: Multiple real-time, color flow and Doppler tracings of both lower extremities were obtained. FINDINGS: The common femoral, femoral, profunda femoral and popliteal veins all demonstrate normal compressibility, augmentation with compression and phasic response with respiration. The posterior tibial and peroneal veins demonstrate normal compressibility and augmentation with compression. IMPRESSION: NO EVIDENCE FOR DEEP VENOUS THROMBOSIS.
[2017-09-08] MEDS ORDERED: predniSONE TAB* 20 MG PO ONE (19:00)
--- NOTE | 2017-09-08 20:58 | ED ---
León Love Gabriel, scribed for Dudley Hernandes MD on 09/08/17 at 1150 . Shortness of Breath - HPI Summary HPI Summary: This patient is a 66 year old F BIBA to [facility] accompanied by her daughter with a chief complaint of SOB that began yesterday but got worse this morning at 0400. Symptoms aggravated by movement. Patient reports v/n and decreased appetite. Patient denies blood in ostomy. Pt saw PCP at 1030 and was sent here. She was admitted for a GI bleed 2 weeks ago. BP in room is 83/64 and Hr is 111. - History of Current Complaint Chief Complaint: EDShortnessOfBreath Time Seen by Provider: 09/08/17 11:44 Hx Obtained From: Patient Onset/Duration: Lasting Hours, Still Present, Worse Since - 0400 Timing: Constant Current Severity: Moderate Dyspnea At: Rest Aggrevating Factors: Movement Associated Signs & Symptoms: Negative - GI bleed Related History: Obesity - Allergy/Home Medications Allergies/Adverse Reactions: Allergies Allergy/AdvReac Type Severity Reaction Status Date / Time bee venom protein (honey bee) Allergy Severe Rash Verified 08/03/17 13:55 shellfish derived Allergy Severe Hives Verified 08/03/17 13:55 Iodinated Contrast- Oral and Allergy Intermediate Hives Verified 08/03/17 13:55 IV Dye celecoxib Allergy Hives Verified 08/03/17 13:55 PMH/Surg Hx/FS Hx/Imm Hx Endocrine/Hematology History: Reports: Hx Anticoagulant Therapy, Hx Diabetes - DM II, Hx Thyroid Disease, Hx Anemia Cardiovascular History: Reports: Hx Cardiac Arrest, Hx Congestive Heart Failure , Hx Coronary Artery Disease, Hx Deep Vein Thrombosis, Hx Hypercholesterolemia, Hx Hypotension, Hx Hypertension, Hx Peripheral Vascular Disease, Hx Valvular Heart Disease, Other Cardiovascular Problems/Disorders - CAD, DVT, valve replacement, CABG Denies: Hx Pacemaker/ICD Respiratory History: Reports: Hx Asthma, Hx Chronic Obstructive Pulmonary Disease (COPD), Hx Pneumonia, Hx Pulmonary Embolism, Hx Sleep Apnea, Other Respiratory Problems/Disorders - home o2, 2.5L GI History: Reports: Hx Diverticulosis, Hx Gall Bladder Disease, Hx Gastroesophageal Reflux Disease, Hx Gastrointestinal Bleed - 08/22/16 admission, Hx Hiatal Hernia, Other GI Disorders - DIVERTICULITIS, SBO with colostomy History: Reports: Hx Kidney Stones Denies: Hx Dialysis, Hx Renal Disease, Other Problems/Disorders Musculoskeletal History: Reports: Hx Arthritis - legs and shoulders, Hx Back Problems, Hx Bursitis, Hx Scoliosis, Other Musculoskeletal History - Left hip replacement Denies: Hx Osteoporosis Sensory History: Reports: Hx Contacts or Glasses Denies: Hx Deafness, Hx Hearing Aid Opthamlomology History: Reports: Hx Contacts or Glasses Neurological History: Denies: Hx Dementia, Hx Developmental Delay, Hx Headaches, Hx Migraine, Hx Nerve Disease, Hx Seizures, Hx Spinal Cord Injury, Hx Transient Ischemic Attacks (TIA), Other Neuro Impairments/Disorders Psychiatric History: Reports: Hx Anxiety, Hx Depression Denies: Hx Substance Abuse - Surgical History Surgery Procedure, Year, and Place: TUBAL LIGATION 1979, [facility] [place] , CHOLECYSTECTOMY [facility] [place], 2008, KIDNEY STONES REMOVED 1998, [facility] [place], TRIPLE BYPASS, HEART VALVE REPLACEMENT 2010, [facility], LEFT HIP REPLACED, 2009, [facility]. TONSILECTOMY A CHILD. COLOSTOMY 2015 Hx Anesthesia Reactions: No - Immunization History Date of Tetanus Vaccine: Up to date Date of Influenza Vaccine: Fall 2011 Infectious Disease History: No Infectious Disease History: Reports: Hx of Known/Suspected MRSA - 08/22/16 [facility] + MRSA nares, Hx Shingles Denies: Hx Hepatitis, Hx Human Immunodeficiency Virus (HIV), Traveled Outside the [place] in Last 30 Days - Family History Known Family History: Positive: Cardiac Disease, Other - neg: anesthesia reaction - Social History Alcohol Use: Rare Hx Substance Use: No Substance Use Type: Reports: None Hx Tobacco Use: Yes Smoking Status (MU): Former Smoker Type: Cigarettes Have You Smoked in the Last Year: No Review of Systems Constitutional: Other - decreased appetite Positive: Other Positive: Shortness Of Breath Gastrointestinal: Negative - bloody stool Positive: Vomiting, Nausea All Other Systems Reviewed And Are Negative: Yes Physical Exam - Summary Physical Exam Summary: Appearance: The patient is obese and in no acute distress or pain. Skin: The skin is warm and dry and skin color reflects adequate perfusion. HEENT: The head is normocephalic and atraumatic. The pupils are equal and reactive. The conjunctivae are pale. Nares are patent and without drainage. Mouth reveals moist mucous membranes and the throat is without erythema and exudate. The external ears are intact. The ear canals are patent and without drainage. The tympanic membranes are intact. Neck: the neck is supple with full range of motion and non-tender. There are no carotid bruits. There is no neck vein distension. Respiratory: Chest is non-tender. Decreased breath sounds bilaterally Cardiovascular: Heart is tachycardic and irregular There is no murmur or rub auscultated. There is slight peripheral edema and pulses are symmetrical and equal. Abdomen: The abdomen is soft and non-tender. There is an ostomy bag. Musculoskeletal: There is no back tenderness noted. Extremities are non-tender with full range of motion. There is good capillary refill. There is slight peripheral edema but no calf tenderness elicited. Neurological: Patient is alert and oriented to person, place and time. The patient has symmetrical motor strength in all four extremities. Cranial nerves are grossly intact. Deep tendon reflexes are symmetrical and equal in all four extremities. Psychiatric: The patient has an appropriate affect and does not exhibit any anxiety or depression. Triage Information Reviewed: Yes Vital Signs On Initial Exam: Initial Vitals Temp Pulse Resp BP Pulse Ox 97.5 F 79 20 83/64 99 09/08/17 11:39 09/08/17 11:39 09/08/17 11:39 09/08/17 11:39 09/08/17 11:39 Vital Signs Reviewed: Yes Diagnostics - Vital Signs Vital Signs Temp Pulse Resp BP Pulse Ox 09/08/17 11:39 97.5 F 79 20 83/64 99 - Laboratory Lab Results: Lab Results 09/08/17 09/08/17 09/08/17 Range/Units 12:20 12:20 12:20 WBC 12.7 H (3.5-10.8) 10^3/ul RBC 3.61 L (4.0-5.4) 10^6/ul Hgb 9.6 L (12.0-16.0) g/dl Hct 31 L (35-47) % MCV 85 (80-97) fL MCH 27 (27-31) pg MCHC 31 (31-36) g/dl RDW 18 H (10.5-15) % Plt Count 303 (150-450) 10^3/ul MPV 8.3 (7.4-10.4) um3 Neut % (Auto) 79.4 (38-83) % Lymph % (Auto) 11.1 L (25-47) % Durham % (Auto) 8.7 H (0-7) % Eos % (Auto) 0.4 (0-6) % Baso % (Auto) 0.4 (0-2) % Absolute Neuts (auto) 10.1 H (1.5-7.7) 10^3/ul Absolute Lymphs (auto) 1.4 (1.0-4.8) 10^3/ul Absolute Monos (auto) 1.1 H (0-0.8) 10^3/ul Absolute Eos (auto) 0.1 (0-0.6) 10^3/ul Absolute Basos (auto) 0 (0-0.2) 10^3/ul Absolute Nucleated RBC 0 10^3/ul Nucleated RBC % 0.2 ESR Cancelled INR (Anticoag Therapy) 1.35 H (0.77-1.02) APTT 26.2 (26.0-36.3) seconds Sodium 133 L (139-145) mmol/L Potassium TNP Chloride 101 (101-111) mmol/L Carbon Dioxide 25 (22-32) mmol/L Anion Gap 7 (2-11) mmol/L BUN 11 (6-24) mg/dL Creatinine 1.04 H (0.51-0.95) mg/dL Est GFR ( Amer) 68.2 (>60) Est GFR (Non-Af Amer) 53.0 (>60) BUN/Creatinine Ratio 10.6 (8-20) Glucose 103 H (70-100) mg/dL Lactic Acid (0.5-2.0) mmol/L Calcium 8.2 L (8.6-10.3) mg/dL Total Bilirubin 0.60 (0.2-1.0) mg/dL AST TNP ALT 20 (7-52) U/L Alkaline Phosphatase 69 (34-104) U/L Troponin I 0.02 (<0.04) ng/mL C-Reactive Protein 159.34 H (< 5.00) mg/L B-Natriuretic Peptide ( - 100) pg/mL Total Protein 7.0 (6.4-8.9) g/dL Albumin 2.6 L (3.2-5.2) g/dL Globulin 4.4 H (2-4) g/dL Albumin/Globulin Ratio 0.6 L (1-3) Procalcitonin (<0.6) ng/mL Blood Type Antibody Screen 09/08/17 09/08/17 09/08/17 Range/Units 12:20 13:00 13:00 WBC (3.5-10.8) 10^3/ul RBC (4.0-5.4) 10^6/ul Hgb (12.0-16.0) g/dl Hct (35-47) % MCV (80-97) fL MCH (27-31) pg MCHC (31-36) g/dl RDW (10.5-15) % Plt Count (150-450) 10^3/ul MPV (7.4-10.4) um3 Neut % (Auto) (38-83) % Lymph % (Auto) (25-47) % Durham % (Auto) (0-7) % Eos % (Auto) (0-6) % Baso % (Auto) (0-2) % Absolute Neuts (auto) (1.5-7.7) 10^3/ul Absolute Lymphs (auto) (1.0-4.8) 10^3/ul Absolute Monos (auto) (0-0.8) 10^3/ul Absolute Eos (auto) (0-0.6) 10^3/ul Absolute Basos (auto) (0-0.2) 10^3/ul Absolute Nucleated RBC 10^3/ul Nucleated RBC % ESR INR (Anticoag Therapy) (0.77-1.02) APTT (26.0-36.3) seconds Sodium (139-145) mmol/L Potassium Chloride (101-111) mmol/L Carbon Dioxide (22-32) mmol/L Anion Gap (2-11) mmol/L BUN (6-24) mg/dL Creatinine (0.51-0.95) mg/dL Est GFR ( Amer) (>60) Est GFR (Non-Af Amer) (>60) BUN/Creatinine Ratio (8-20) Glucose (70-100) mg/dL Lactic Acid 1.2 (0.5-2.0) mmol/L Calcium (8.6-10.3) mg/dL Total Bilirubin (0.2-1.0) mg/dL AST ALT (7-52) U/L Alkaline Phosphatase (34-104) U/L Troponin I (<0.04) ng/mL C-Reactive Protein (< 5.00) mg/L B-Natriuretic Peptide 752 H ( - 100) pg/mL Total Protein (6.4-8.9) g/dL Albumin (3.2-5.2) g/dL Globulin (2-4) g/dL Albumin/Globulin Ratio (1-3) Procalcitonin 0.1 (<0.6) ng/mL Blood Type Antibody Screen 09/08/17 09/08/17 09/08/17 Range/Units 13:00 15:58 18:16 WBC (3.5-10.8) 10^3/ul RBC (4.0-5.4) 10^6/ul Hgb (12.0-16.0) g/dl Hct (35-47) % MCV (80-97) fL MCH (27-31) pg MCHC (31-36) g/dl RDW (10.5-15) % Plt Count (150-450) 10^3/ul MPV (7.4-10.4) um3 Neut % (Auto) (38-83) % Lymph % (Auto) (25-47) % Durham % (Auto) (0-7) % Eos % (Auto) (0-6) % Baso % (Auto) (0-2) % Absolute Neuts (auto) (1.5-7.7) 10^3/ul Absolute Lymphs (auto) (1.0-4.8) 10^3/ul Absolute Monos (auto) (0-0.8) 10^3/ul Absolute Eos (auto) (0-0.6) 10^3/ul Absolute Basos (auto) (0-0.2) 10^3/ul Absolute Nucleated RBC 10^3/ul Nucleated RBC % ESR 97 H INR (Anticoag Therapy) (0.77-1.02) APTT (26.0-36.3) seconds Sodium (139-145) mmol/L Potassium Chloride (101-111) mmol/L Carbon Dioxide (22-32) mmol/L Anion Gap (2-11) mmol/L BUN (6-24) mg/dL Creatinine (0.51-0.95) mg/dL Est GFR ( Amer) (>60) Est GFR (Non-Af Amer) (>60) BUN/Creatinine Ratio (8-20) Glucose (70-100) mg/dL Lactic Acid 0.8 (0.5-2.0) mmol/L Calcium (8.6-10.3) mg/dL Total Bilirubin (0.2-1.0) mg/dL AST ALT (7-52) U/L Alkaline Phosphatase (34-104) U/L Troponin I (<0.04) ng/mL C-Reactive Protein (< 5.00) mg/L B-Natriuretic Peptide ( - 100) pg/mL Total Protein (6.4-8.9) g/dL Albumin (3.2-5.2) g/dL Globulin (2-4) g/dL Albumin/Globulin Ratio (1-3) Procalcitonin (<0.6) ng/mL Blood Type A Negative Antibody Screen Negative Result Diagrams: 09/08/17 12:20 09/08/17 12:20 Lab Statement: Any lab studies that have been ordered have been reviewed, and results considered in the medical decision making process. - Radiology CXR Radiology Interpretation Completed By: Radiologist - 1. CARDIOMEGALY. 2. SMALL LEFT PLEURAL EFFUSION. Dr. Hernandes has reviewed this report - EKG 12:07 Cardiac Rate: NL EKG Rhythm: Atrial Fibrillation - at 78 BPM EKG Interpretation: w/ controlled response Course/Dx - Course Course Of Treatment: Ms. Ziegler presented with a C/O SOB. She was in the hospital with a GI Bleed about a week ago. When she arrivedd here today she denied any more blood in her ostomy bag. She was, however, normocardic (on metoprolol) and relatively hypotensive. Her lungs had good breath sounds and I did not suspect a COPD exacerbation which she has had. CXR revealed no acute pathology. She was given IV fluids which didn 't help much. I'm not sure of the etiology but she remmains comfortable but hypotensive. She is being admitted to the hospitalist service. - Diagnoses Provider Diagnoses: Hypotension, COPD exacerbation - Physician Notifications Discussed Care of Patient With: Rojelio Cuevas Time Discussed With Above Provider: 14:15 Instructed by Provider To: Admit As Inpatient - Critical Care Time Critical Care Time: 30-74 min Discharge - Sign-Out/Discharge Documenting (check all that apply): Discharge - Discharge Plan Condition: Fair Disposition: ADMITTED TO [facility] Referrals: Kajal Simons MD [Primary Care Provider] - - Billing Disposition and Condition Condition: FAIR Disposition: [facility]P-[facility] [place] The documentation as recorded by the León nowak Gabriel accurately reflects the service I personally performed and the decisions made by , Dudley Hernandes MD.
[2017-09-08] MEDS ORDERED: Mometasone 220 MCG MDI INH SCH (21:00)
--- NOTE | 2017-09-08 21:07 | HP ---
CC: Dr. Simons * HISTORY AND PHYSICAL: DATE OF ADMISSION: 09/08/17 PRIMARY CARE PROVIDER: Dr. Simons. ATTENDING PHYSICIAN WHILE IN THE HOSPITAL: Sena Neely MD * (report dictated by Jay Jacob NP) CHIEF COMPLAINT: 1. Weakness. 2. Not feeling well. HISTORY OF PRESENT ILLNESS: Ms. Ziegler is a 66-year-old female patient. She has multiple medical problems. She has multiple medical problems. She has a history of AFib; COPD; chronic respiratory failure, on 2 L chronically; PVD; GERD; CHF; chronic pain; hypertension; DVT; PE; RYAN, not wearing a mask, currently she is getting fitted; diabetes; bowel obstruction; chronic colostomy ; CAD; MD; hyperlipidemia; hypothyroidism. She comes in to the ED today, she says that she was here on the 7th of the night. She had bleeding from her ostomy site. It was scoped on the of this month up at [place]. It sounds like that there was an AVM at that point that was cauterized. 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 The patient was discharged in stable condition at that point from [place], came back here on the because she had started on Coumadin for 1 day and was having blood out of the colostomy, which was felt to be probably from the procedure. She was observed, ultimately had no more bleeding. Her H and H remained stable and she was discharged home. Follow up with her primary to restart Coumadin. Unfortunately, she has been off her Coumadin for about 2 weeks. She is coming in today because she was at Dr. Simons's office for a routine followup. It was noted according to the patient that her heart rate was fast. The patient did not elaborate on this, but there was also concern that the blood pressure was on the lower side for the patient and she was transferred to the hospital. The patient states that over the last couple of days, she has been feeling weak, fatigued, not feeling well. She has had a cough , it has been productive of clear sputum. She states she has been having intermittent left lower quadrant abdominal discomfort. There has been no more blood per the ostomy. She denies having any chest pain. She did admit to having some dyspnea on exertion, but no orthopnea, no weight gain, no worsening swelling. She was concerned though because she just was feeling weak. She does state that she has been waking up intermittently with a headache that has been affecting of the left side of her head, but there is no reproducible pain and no trouble with her vision. She denied having any focal weaknesses. She has no slurred speech. No facial drooping or weakness to one side, but she was concerned because she just felt generalized malaise, having worsening dyspnea on exertion. She came in to the ED, was evaluated. Initial blood pressures were in the 80s systolic, they did respond to fluids. We were asked to evaluate for admission because it was noted her CRP was up and her white count was up. There was concern for a possible underlying infection and for hypotension, so we were asked to evaluate for admission. PAST MEDICAL HISTORY: Significant for: 1. AFib. 2. COPD. 3. Chronic respiratory failure, on 2 L chronically. 4. Peripheral vascular disease. 5. GERD. 6. CHF. Last EF was 55%. 7. Chronic pain. 8. Hypertension. 9. History of DVT and PE. 10. RYAN. 11. Diabetes. 12. Bowel obstruction, requiring colostomy. 13. CAD. 14. MD. 15. Hyperlipidemia. 16. Hypothyroidism. PAST SURGICAL HISTORY: 1. The patient has had an aortic valve replacement, which was porcine. 2. Colostomy. 3. CABG. 4. Cholecystectomy. 5. Appendectomy. 6. Hernia repair. MEDICATIONS: Home medications include: 1. Trazodone 100 mg at bedtime. 2. Metformin 500 mg twice a day. 3. Demadex 40 mg p.o. daily. 4. Spiriva 1 capsule inhaled daily. 5. Aldactone 25 mg daily. 6. Zoloft 200 mg daily. 7. Lyrica 50 mg at bedtime. 8. Lopressor 100 mg daily. 9. Synthroid 200 mcg p.o. daily. 10. Morton 1 tablet p.o. every 4 hours as needed. 11. Flovent 2 puffs inhaled b.i.d. 12. Zetia 10 mg daily. 13. EpiPen 0.3 mg IM once as needed for reaction. 14. Diltiazem 240 mg p.o. daily. 15. Lipitor 80 mg daily. 16. Aspirin 81 mg daily. 17. Ventolin 2 puffs inhaled every 4 hours as needed. 18. Xanax 0.25 mg t.i.d. as needed. ALLERGIES TO MEDICATIONS: Include SHELLFISH, BEES, CELEBREX, and IV DYE. FAMILY HISTORY: Mother had a history of CAD. Father's history is unknown as he when the patient was 5. SOCIAL HISTORY: The patient is a former smoker. She quit about 3 years ago. Rarely drinks alcohol. Surrogate decision maker is her son and daughter. REVIEW OF SYSTEMS: She does admit to having a low-grade fever around the 100s. She denies having any significant weight change. There is no double vision. She denies having any ear discharge. There is no rhinorrhea. No sore throat. There was abdominal pain per my HPI. There was no nausea or vomiting. No dysuria, no frequency, no seizure. There was no loss of consciousness. No pruritus and no skin ulcerations. Review of 14 systems was completed, all others negative. PHYSICAL EXAMINATION GENERAL: At this time, Ms. Ziegler is a 66-year-old female patient. She is chronically ill appearing. She is older than stated age. She is sitting in the ED stretcher. She does not appear to be in any acute distress. VITAL SIGNS: Blood pressure 96/62 with a pulse of 94, respirations 20, O2 sat 98% on 3 L, temperature 97.5. HEENT: Head is atraumatic and normocephalic. Eyes: EOMs are intact. Sclerae anicteric, not pale. Throat: Oral mucosa appears to be dry. No oropharyngeal erythema. NECK: Supple. LUNGS: Clear to auscultation. I did not appreciate any crackles or wheeze. HEART: Sounds S1, S2. Irregularly irregular rate. No murmurs, rubs or gallops. ABDOMEN: Again, she has a large ventral hernia with colostomy. Again, the ostomy site appears to be benign. The stoma is pink. She did have some tenderness in the left lower quadrant. Bowel sounds are present. EXTREMITIES: Pulses were 2+ throughout. She is moving all 4 extremities with 5 /5 strength. NEUROLOGIC: She is awake. She is alert. She is oriented x3. Tongue is midline. Touch Up Carver are equal. No gross focal deficits. SKIN: Intact. DIAGNOSTIC STUDIES/LAB DATA: Labs revealed a WBC of 12.7, RBC of 3.61, hemoglobin of 9.6, hematocrit of 31, platelet count of 303,000. INR 1.35, PTT 26.2. Sodium was 133, potassium pending, chloride 101, bicarb 25, BUN 11, creatinine 1.04, glucose of 103, lactic 1.2, calcium 8.2, total bili 0.6. AST pending, ALT 20, alk phos 69, troponin 0.02, CRP was 159, BNP 752, albumin 2.6, procalcitonin negative. Chest x-ray obtained today. When I looked at it, I did not appreciate any acute infiltrates or pulmonary edema. Radiology read it as cardiomegaly, small left pleural effusion. EKG shows atrial fibrillation, rate of 78. No ST elevations. She did have flattened T waves in V4, V5, and V6 which she has had previously. Old medical records were reviewed. Last echo was from July of this year, showed EF of 50% to 55%. Old medical records were reviewed. ASSESSMENT AND PLAN: Ms. Ziegler is a 66-year-old female patient with multiple medical problems, coming in to the ED today with complaints of weakness , fatigue, and evaluation, found to have elements of systemic inflammatory response syndrome. We were asked to evaluate for admission. She will be admitted under inpatient status for: 1. Weakness. Etiology is unclear. She does have elements of systemic inflammatory response syndrome on her labs, again she was noted to be hypotensive. In addition to this, it was also noted that she had a white count and her CRP is elevated. My plan, at this point I would like to get a UA on the patient as this certainly could be a contributing factor. In addition to this, I am concerned with the cough that may be she has pneumonia with her being dehydrated, we have not been seeing it on her x-ray just yet, so I am going to put her empirically on Rocephin and azithromycin. We will go ahead and get urine culture, sputum culture as well. Blood cultures were sent and we will continue to follow. I am also checking an ESR as well and we will continue to monitor. 2. Recent GI bleed. Her H and H is stable. She is no longer having any blood from the colostomy. We will monitor the H and H. 3. Atrial fibrillation. Continue meds as prescribed. I am still going to hold the blood thinners at this point. May consider restarting those at the end of the hospitalization. 4. History of deep venous thrombosis and pulmonary embolism. I am concerned that she did have some shortness of breath, but she is not requiring any more O2 than her baseline. She has been off her warfarin for a couple of weeks now. I do think that we should rule out deep venous thrombosis and pulmonary embolism. I ordered the ultrasound. In addition to this, I ordered a CTA tomorrow with premedication, but with her history of recent GI bleed and the fact that she is not requiring increasing oxygen and she is not tachycardic, I do not think I have enough to empirically treat her with the Lovenox or heparin. We will monitor. 5. Chronic obstructive pulmonary disease. I will continue her meds as prescribed and p.r.n. inhalers. 6. Chronic respiratory failure. Continue meds as prescribed. 7. Obstructive sleep apnea. At this point, she is being fitted for the mask. We will continue her oxygen. 8. Gastroesophageal reflux disease. Continue meds as prescribed. 9. History of congestive heart failure. She actually appears to be dehydrated. I am going to hold her diuretics. We will reinstate them when we are safe. 10. Hypertension. She is actually hypotensive here. I am going to hold her medications, hydrate her, and look for underlying infection. 11. Diabetes. A lispro sliding scale has been ordered. 12. Coronary artery disease. I am going to continue the aspirin and statin therapy, holding beta-bao due to hypotension. 13. Hyperlipidemia. Continue statin therapy and Zetia. 14. Hypothyroidism. Continue meds as prescribed. 15. DVT prophylaxis. I will put her on subtherapeutic heparin given her high risk of history of deep venous thrombosis, but again not therapeutic. 16. Fluids, electrolytes and nutrition. She can have a consistent carb diet. TIME SPENT: Time spent on the admission is 60 minutes, greater than half the time spent [id number] with the patient obtaining my history and physical, other half of the time spent going over the plan of care with the patient and implementing plan of care. I discussed the plan of care with my attending, Dr. Neely, she is in agreement. JAYANJEL JACOB NP [id number]/[facility] #: [id number] SERENA
[2017-09-08] MEDS: metroNIDAZOLE IV 500 MG/100ML* 500 MG/100 ML BAG IVPB SCH (21:26)
[2017-09-08] MEDS: traZODone TAB* 100 MG PO SCH (21:29)
[2017-09-08] MEDS: Pregabalin CAP(*) 50 MG PO SCH (21:29)
[2017-09-08] MEDS: Heparin VIAL(*) 5000 UNITS/ML VIAL (FIVE THOUSAND) SUBCUT SCH (21:30)
[2017-09-08] MEDS: Ciprofloxacin 400MG IVPREMIX(* 400 MG/200 ML BAG IVPB SCH (23:09)
[2017-09-08] MEDS: ALPRAZolam TAB* 0.25 MG PO PRN (23:19)
[2017-09-09] MEDS ORDERED: predniSONE TAB* 50 MG PO ONE (01:00)
[2017-09-09 01:21] LABS: Urine Appearance Cloudy; Urine Blood 1+ (Negative); Urine Color Yellow; Urine Ketones Negative (Negative); Urine Protein Negative (Negative); Urine Specific Gravity 1.017 (1.010-1.030); Urine Urobilinogen Negative (Negative)
[2017-09-09] MEDS: metroNIDAZOLE IV 500 MG/100ML* 500 MG/100 ML BAG IVPB SCH ×3 (03:04→20:07)
[2017-09-09] MEDS: Heparin VIAL(*) 5000 UNITS/ML VIAL (FIVE THOUSAND) SUBCUT SCH ×3 (05:37→20:14)
[2017-09-09] MEDS: Levothyroxine TAB* 100 MCG TAB PO SCH (05:37)
[2017-09-09 06:14] LABS: ABS Basophils 0 10^3/ul (0-0.2); ABS Eosinophils 0 10^3/ul (0-0.6); ABS Lymphocytes 0.6 10^3/ul (1.0-4.8); ABS Monocytes 0.2 10^3/ul (0-0.8); ABS Neutrophils 10.8 10^3/ul (1.5-7.7); ABS Nucleated RBC 0 10^3/ul; Eosinophil % 0 % (0-6); Hematocrit 30 % (35-47); Hemoglobin 9.6 g/dl (12.0-16.0); Lymphocyte % 4.8 % (25-47); Mean Corpuscular HGB Conc 32 g/dl (31-36); Mean Corpuscular Hemoglobin 27 pg (27-31); Mean Corpuscular Volume 84 fL (80-97); Mean Platelet Volume 8.3 um3 (7.4-10.4); Nucleated Red Blood Cells % 0; Platelet Count 278 10^3/ul (150-450); Red Blood Count 3.56 10^6/ul (4.0-5.4); Red Cell Distribution Width 18 % (10.5-15); White Blood Count 11.5 10^3/ul (3.5-10.8)
[2017-09-09 06:18] LABS: INR 1.35 (0.77-1.02)
[2017-09-09 06:26] LABS: EGFR Non-African American 58.9 (>60)
[2017-09-09] MEDS ORDERED: predniSONE TAB* 20 MG PO ONE (07:00)
[2017-09-09] MEDS ORDERED: Iodixanol* (CONTRAST) 320 MG/ML 100 ML SDV IV SCH (07:47)
[2017-09-09] MEDS: Tiotropium CAP.INH* CAP.INH/18 MCG (USE ORDER SET !) INH SCH (07:53)
[2017-09-09] MEDS: Ezetimibe TAB* 10 MG PO SCH (08:55)
[2017-09-09] MEDS: Sertraline* 100 MG TAB PO SCH (08:55)
[2017-09-09] MEDS: Atorvastatin* 80 MG TAB PO SCH (08:55)
[2017-09-09] MEDS: Aspirin EC TAB* 81 MG TAB.EC PO SCH (08:55)
[2017-09-09] MEDS: Ciprofloxacin 400MG IVPREMIX(* 400 MG/200 ML BAG IVPB SCH ×2 (08:56→21:43)
[2017-09-09] MEDS: Metoprolol Tartrate TAB* 50 mg PO SCH ×2 (08:56→08:58)
[2017-09-09] MEDS: Insulin LISPRO* 1 UNITS UNIT SUBCUT SCH ×4 (08:56→21:38)
[2017-09-09] MEDS ORDERED: Spiriva Inhaler DEVICE* 1 EACH DEVICE INH ONE (09:00)
[2017-09-09] MEDS ORDERED: diPHENhydraMINE PO* 50 MG PO ONE (13:00)
--- NOTE | 2017-09-09 13:36 | RAD ---
INDICATION: Chest pain. Short of breath. CHF. Left sided effusion. Evaluate for pulmonary embolus. COMPARISON: Chest x-ray September 08, 2017 TECHNIQUE: Axial source images were obtained from the thoracic inlet to the hemidiaphragms following administration of [address] angiographic technique was utilized. Coronal and sagittal reconstructed images were acquired. CHEST FINDINGS: Neck/thyroid: The visualized neck to include the thyroid appear normal. Chest wall: There are no acute abnormalities of the bony thorax or chest wall. There is no supraclavicular, infraclavicular, or axillary lymphadenopathy. Lungs : There is minor left basilar atelectasis. The lung morrison otherwise clear. The pulmonary interstitium appears normal. There are no endobronchial lesions. Cardiomediastinal structures: There is no CT evidence of acute pulmonary embolic disease. The heart is enlarged. There is no pericardial effusion. There is no evidence of aortic aneurysm or dissection. There is no mediastinal or hilar adenopathy. The esophagus appears normal. Pleura : There is a small left-sided pleural effusion. Other: There is a large, bowel containing, ventral hernia as described on the earlier CT of the abdomen and pelvis obtained for left lower quadrant pain. IMPRESSION: NO CT EVIDENCE OF ACUTE PULMONARY EMBOLIC DISEASE. CARDIOMEGALY. LEFT-SIDED EFFUSION
[2017-09-09] MEDS: Acetaminophen TAB* 325 MG PO PRN (13:42)
--- NOTE | 2017-09-09 14:46 | PN ---
Subjective Date of Service: 09/09/17 Interval History: HOSPITALIST PROGRESS NOTE Patient seen and examined at bedside. She feels better today, states her pain is less intense and she's happy because "someone figured out why she's having pain on her belly". Family History: Unchanged from Admission Social History: Unchanged from Admission Past Medical History: Unchanged from Admission Objective Active Medications: Acetaminophen (Tylenol Tab*) 650 mg PO Q4H PRN PRN Reason: FEVER/PAIN Last Admin: 09/09/17 13:42 Dose: 650 mg Albuterol (Ventolin Hfa Inhaler*) 2 puff INH Q4H PRN PRN Reason: SOB/WHEEZING Alprazolam (Xanax Tab*) 0.25 mg PO TID PRN PRN Reason: ANXIETY Last Admin: 09/08/17 23:19 Dose: 0.25 mg Aspirin (Aspirin Ec Tab*) 81 mg PO DAILY [facility] Last Admin: 09/09/17 08:55 Dose: 81 mg Atorvastatin Calcium (Lipitor*) 80 mg PO DAILY [facility] Last Admin: 09/09/17 08:55 Dose: 80 mg Dextrose (D50w Syringe 50 Ml*) 12.5 gm IV PUSH .FOR FS < 60 - SS PRN PRN Reason: FS < 60 Ezetimibe (Zetia Tab*) 10 mg PO DAILY [facility] Last Admin: 09/09/17 08:55 Dose: 10 mg Heparin Sodium (Porcine) (Heparin Vial(*)) 5,000 units SUBCUT Q8HR [facility] Last Admin: 09/09/17 13:43 Dose: 5,000 units Ciprofloxacin/Dextrose (Cipro 400 Mg Ivpremix(*)) 400 mg in 200 mls @ 200 mls/ hr IVPB Q12H [facility] Last Admin: 09/09/17 08:56 Dose: 200 mls/hr Metronidazole/Sodium Chloride (Flagyl 500 Mg Ivpb*) 500 mg in 100 mls @ 100 mls /hr IVPB Q8H [facility] Last Admin: 09/09/17 12:26 Dose: 100 mls/hr Insulin Human Lispro (Humalog*) 0 units SUBCUT AC JL PRN Reason: Protocol Last Admin: 09/09/17 12:25 Dose: 6 units Iodixanol (Visipaque* 320 (Contrast)) 91 ml IV ONCE [facility] Stop: 09/11/17 07:46 Last Admin: 09/09/17 13:20 Dose: 91 ml Levothyroxine Sodium (Synthroid Tab*) 200 mcg PO DAILY@0600 [facility] Last Admin: 09/09/17 05:37 Dose: 200 mcg Metoprolol Tartrate (Lopressor Tab*) 50 mg PO DAILY [facility] Last Admin: 09/09/17 08:58 Dose: Not Given Mometasone Furoate (Asmanex 220 Mcg Mdi *) 1 puff INH QPM [facility] Last Admin: 09/08/17 21:28 Dose: Not Given Ondansetron HCl (Zofran Inj*) 4 mg IV Q6H PRN PRN Reason: NAUSEA Pregabalin (Lyrica Cap(*)) 50 mg PO BEDTIME [facility] Last Admin: 09/08/17 21:29 Dose: 50 mg Sertraline HCl (Zoloft*) 200 mg PO DAILY [facility] Last Admin: 09/09/17 08:55 Dose: 200 mg Tiotropium [place] (Spiriva Cap.Inh*) 1 cap INH DAILY [facility] Last Admin: 09/09/17 07:53 Dose: 1 cap.inh Trazodone HCl (Desyrel Tab*) 100 mg PO BEDTIME [facility] Last Admin: 09/08/17 21:29 Dose: 100 mg Vital Signs - 8 hr 09/09/17 09/09/17 09/09/17 12:06 12:25 14:21 Temperature 97.6 F Pulse Rate 118 Respiratory 16 20 17 Rate Blood Pressure 105/68 (mmHg) O2 Sat by Pulse 98 Oximetry Oxygen Devices in Use Now: Nasal Cannula Appearance: Pleasant obese lady lying in bed in [facility]. Eyes: No Scleral Icterus Ears/Nose/Mouth/Throat: Mucous Membranes Moist Neck: Trachea Midline Respiratory: Symmetrical Chest Expansion and Respiratory Effort, Clear to Auscultation Cardiovascular: - - Normal S1 and S2, irregularly irregular Abdominal: - - Obese, soft, large ventral hernia, working ostomy, LLQ tenderness , BS+ Neurological: Alert and Oriented x 3, NL Muscle Strength and Tone Result Diagrams: 09/09/17 06:00 09/09/17 06:00 Assess/Plan/Problems-Billing Assessment: Mrs. Ziegler is a 66yo F with PMH of obesity, Afib, COPD on home O2 2 liters/ min, PVF, GERD, diastolic CHF with EF 55%, chronic pain, HTN, DVT, PE, RYAN, diabetes, bowel obstruction requiring colostomy, CAD s/p CABG, s/p AVR (porcine) , HLD, hypothyroidism, who presented to ED with c/o weakness and malaise, found to have a large LLQ mass. - Patient Problems (1) Abdominal mass, left lower quadrant Comment: - Patient presented with LLQ pain, malaise, weakness. - CT abdome and pelvis showed a large mass on the LLQ with prominent surrounding interstitial stranding which may represent a phlegmonous process. - D/w surgery (Dr. Jackson) - plan to continue antibiotics and repeat CT on . (2) GI bleed Comment: - Patient had recent admission for hematochezia. - Colonoscopy done at [place] showed diverticulosis, few non-bleeding colonic angioectasias treated with APC. - She denies further bleeding, but has been off anticoagulation. (3) Atrial fibrillation Comment: - Continue metoprolol and resume Cardizem. (4) Hx of pulmonary embolus Comment: - As per pt she is unclear if she has a hx of PE, but does report very distant hx of DVT. - CTA chest was negative this admission. (5) COPD (chronic obstructive pulmonary disease) Comment: - Stable. - Continue bronchodilators. (6) Diabetes Comment: - Add low dose Lantus and continue Lispro SS. (7) DVT prophylaxis Comment: - SQ heparin. (8) Full code status
--- NOTE | 2017-09-09 14:56 | CONS ---
CC: [facility]; Dr. Simons SURGICAL CONSULTATION REPORT: DATE OF CONSULT: 09/09/17 LOCATION: Room 453. HISTORY OF PRESENT ILLNESS: Surgical consultation was requested by hospitalist service on [facility] swann who was admitted to the hospital yesterday with complaints of weakness and general malaise who was noted to have on CT scan of the abdomen and pelvis an inflammatory change in the pelvis. The patient is known to me after undergoing a loop transverse colostomy two and half years ago for la rge bowel obstruction. Etiology of the obstruction was considered to be likely diverticular disease. The patient did undergo colonoscopy through the colostomy two years ago with the GI department. No biopsies were taken at that time, but no lesions were noted other than small polyps in the cecum. The patient has gone on to develop large parastomal hernia and I had followed her for that. Consider ation was for the patient to remain with the hernia as it was not symptomatic and maintained colostom y given her poor overall health condition. The patient suffers from COPD and is on 24-hour oxygen the [facility]. The patient recently was hospitalized in our institution for a GI bleed through the colostomy. The p geovani was evaluated by the gastroenterology department at [facility] and noted concern fo r AV malformations in the colon. The patient's Coumadin was held and she was ultimately discharged f [place] with her primary care doctor. According to the patient, the patient underwent colonoscopy through the [facility] and had what s he describes AV malformation. These were cauterized. What is unclear this occurred before and after her recent admission, but the patient states that she has had not any additional bleeding since then . The patient was complaining of lower abdominal pain and for this reason she underwent a CT scan of th e abdomen and pelvis, images as well as report reviewed and is consistent with a 6-cm phlegmon adjace nt to the sigmoid colon. There is no intraperitoneal air. There is no free fluid. The patient has no recent comparable CT scan, only the one from 2016. This was reviewed and there was no similar les ions then. The patient does not have any stool per rectum. She is used to colostomy bag and states understands she will likely live with it. She states there has been significant amount of gas and st ool from the colostomy and this has not been bloody. PAST MEDICAL HISTORY: Atrial fibrillation. The patient has not returned to Coumadin. She does have COPD as described above and respiratory failure, peripheral vascular disease, GERD, CHF, chronic yvonne n, history of PE and DVT, diabetes, morbid obesity, hypercholesterolemia, hypothyroidism. PAST SURGICAL HISTORY: Umbilical hernia repair with mesh and loop transverse colostomy. MEDICATIONS: Reviewed. ALLERGIES: Reviewed. SOCIAL HISTORY: The patient is a former smoker. She lives with her son and denies any drinking. Sh princess is able to get around with walker. PHYSICAL EXAM: Vital Signs: Clinically, severe obesity. She is afebrile. Heart rate in the 100s t o 140s in AFib on EKG. Blood pressure 105/68. General: She did present to the hospital with hypote nsion. She is on oxygen. Alert and oriented x3, in no apparent distress. Head, ears, eyes, nose, a nd throat: Normocephalic and atraumatic. Sclerae anicteric. Mucous membranes are moist. Neck: No lymphadenopathy. Abdomen: Soft, obese. Tender in the left lower quadrant and left groin area. No hernias at the groin areas. Large ventral hernia at the colostomy site, which is pink and mildly ed ematous with stool and gas. Periwound skin is intact. Rectal: Exam not performed. DIAGNOSTIC STUDIES/LAB DATA: Labs reviewed shows an elevated CRP of 159. However, earlier this jose j h this was 186. White blood cell count this morning is 11.5 with left shift. H and H shows anemia, but it is stable. CT scan reviewed. No evidence of obstruction. No free fluid. No free air. IMPRESSION: Complex patient who is comfortable at this time. Started on antibiotics for an inflamma tory process of unclear etiology. This could be secondary to instrumentation. This is adjacent to d efunctionalized colon and although it is a concern, I do believe we should treat her clinically and c urrently she is stable with the exception of elevated heart rate with atrial fibrillation, rapid vent ricular rate. I would like to let her eat. We will continue to treat her with antibiotics, IV fluid s. I would like to repeat the CT scan on Tuesday and reevaluate for the possibility of percutaneous d rainage. If the patient should worsen, she may require exploratory laparotomy for better evaluation, but I do believe this would be a morbid procedure in this patient. I discussed this with the hospitalist serv ice watchful waiting, p.o. intake, monitor Is and Os, blood pressure control, repeat labs and followu p with plan for repeat CT scan next week. TIME SPENT: Overall 45 minutes were spent both with the patient and discussion with other doctors re jean claude Jaffewood and her plan of care. I discussed this with the patient, who understands. [id number]/[facility] #: [id number]
[2017-09-09] MEDS: Diltiazem CD CAP* 240 MG PO SCH (17:18)
[2017-09-09] MEDS: Insulin GLARGINE(*) 1 UNITS UNIT SUBCUT SCH (17:18)
[2017-09-09] MEDS: traZODone TAB* 100 MG PO SCH (20:10)
[2017-09-09] MEDS: Pregabalin CAP(*) 50 MG PO SCH (20:10)
[2017-09-09] MEDS: Mometasone 220 MCG MDI INH SCH (21:12)
[2017-09-10] MEDS: metroNIDAZOLE IV 500 MG/100ML* 500 MG/100 ML BAG IVPB SCH ×3 (03:18→20:24)
[2017-09-10 06:25] LABS: ABS Basophils 0 10^3/ul (0-0.2); ABS Eosinophils 0 10^3/ul (0-0.6); ABS Lymphocytes 0.9 10^3/ul (1.0-4.8); ABS Monocytes 0.9 10^3/ul (0-0.8); ABS Neutrophils 9.5 10^3/ul (1.5-7.7); ABS Nucleated RBC 0 10^3/ul; Eosinophil % 0 % (0-6); Hematocrit 29 % (35-47); Lymphocyte % 7.9 % (25-47); Mean Corpuscular HGB Conc 32 g/dl (31-36); Mean Corpuscular Hemoglobin 27 pg (27-31); Mean Corpuscular Volume 84 fL (80-97); Mean Platelet Volume 8.1 um3 (7.4-10.4); Nucleated Red Blood Cells % 0.1; Platelet Count 254 10^3/ul (150-450); Red Cell Distribution Width 18 % (10.5-15); White Blood Count 11.3 10^3/ul (3.5-10.8)
[2017-09-10] MEDS: Levothyroxine TAB* 100 MCG TAB PO SCH (06:31)
[2017-09-10] MEDS: Heparin VIAL(*) 5000 UNITS/ML VIAL (FIVE THOUSAND) SUBCUT SCH ×3 (06:31→20:26)
--- NOTE | 2017-09-10 08:27 | PN ---
Progress Note - Progress Note Date of Service: 09/10/17 Note: Surgery Ms. Ziegler says she feels "up and down". She says her pain is "about the same". Vital Signs 09/09/17 09/09/17 09/09/17 08:38 08:39 12:06 Temperature 97.0 F 97.6 F Pulse Rate 49 120 118 Respiratory 15 16 Rate Blood Pressure 117/68 105/68 (mmHg) O2 Sat by Pulse 99 98 Oximetry 09/09/17 09/09/17 09/09/17 12:25 14:21 15:33 Temperature 97.3 F Pulse Rate 66 Respiratory 20 17 18 Rate Blood Pressure 102/59 (mmHg) O2 Sat by Pulse 97 Oximetry 09/09/17 09/09/17 09/09/17 20:00 20:10 20:29 Temperature 95.7 F Pulse Rate 61 Respiratory 17 19 Rate Blood Pressure 122/79 (mmHg) O2 Sat by Pulse 97 100 Oximetry 09/09/17 09/09/17 09/10/17 21:14 22:55 00:33 Temperature 97.4 F Pulse Rate 98 79 Respiratory 20 19 16 Rate Blood Pressure 92/55 (mmHg) O2 Sat by Pulse 97 99 Oximetry 09/10/17 09/10/17 01:20 03:45 Temperature 96.9 F 96.2 F Pulse Rate 87 82 Respiratory 16 16 Rate Blood Pressure 103/58 94/68 (mmHg) O2 Sat by Pulse 99 97 Oximetry Abd: Protruberant, soft, non-tender except for mild tenderness in the LLQ. THere is no guarding or rebound. Stoma: functioning and viable. Intake & Output 09/09/17 09/10/17 09/10/17 22:59 06:59 14:59 Intake Total 1972 535 Output Total 0 775 Balance 1972 - Intake: IV Fluids 845 60 ABX - CIPROFLOXACIN 30 30 ABX - FLAGYL 30 30 NS (0.9%) 785 IVPB 408 300 ABX - CIPROFLOXACIN 200 200 ABX - FLAGYL 208 100 Oral 720 175 Output: Urine 0 775 Other: Estimated Void Small Small # Bowel Movements 1 0 # Voids 5 2 Laboratory Results - last 24 hr 09/09/17 09/09/17 09/09/17 11:36 16:35 21:06 WBC RBC Hgb Hct MCV MCH MCHC RDW Plt Count MPV Neut % (Auto) Lymph % (Auto) [place] % (Auto) Eos % (Auto) Baso % (Auto) Absolute Neuts (auto) Absolute Lymphs (auto) Absolute Monos (auto) Absolute Eos (auto) Absolute Basos (auto) Absolute Nucleated RBC Nucleated RBC % Sodium Potassium Chloride Carbon Dioxide Anion Gap BUN Creatinine Est GFR ( Amer) Est GFR (Non-Af Amer) BUN/Creatinine Ratio Glucose POC Glucose (mg/dL) 233 H 256 H 225 H Calcium 09/10/17 09/10/17 06:12 06:12 WBC 11.3 H RBC 3.40 L Hgb 9.0 L Hct 29 L MCV 84 MCH 27 MCHC 32 RDW 18 H Plt Count 254 MPV 8.1 Neut % (Auto) 83.8 H Lymph % (Auto) 7.9 L [place] % (Auto) 8.1 H Eos % (Auto) 0 Baso % (Auto) 0.2 Absolute Neuts (auto) 9.5 H Absolute Lymphs (auto) 0.9 L Absolute Monos (auto) 0.9 H Absolute Eos (auto) 0 Absolute Basos (auto) 0 Absolute Nucleated RBC 0 Nucleated RBC % 0.1 Sodium 138 L Potassium 4.1 Chloride 107 Carbon Dioxide 26 Anion Gap 5 BUN 18 Creatinine 0.86 Est GFR ( Amer) 84.9 Est GFR (Non-Af Amer) 66.0 BUN/Creatinine Ratio 20.9 H Glucose 145 H POC Glucose (mg/dL) Calcium 8.0 L A/P: Stable during observation period. Await CT scan next week. CLFoster
[2017-09-10] MEDS: Aspirin EC TAB* 81 MG TAB.EC PO SCH (08:31)
[2017-09-10] MEDS: Metoprolol Tartrate TAB* 50 mg PO SCH (08:31)
[2017-09-10] MEDS: Diltiazem CD CAP* 240 MG PO SCH (08:31)
[2017-09-10] MEDS: Atorvastatin* 80 MG TAB PO SCH (08:31)
[2017-09-10] MEDS: Ezetimibe TAB* 10 MG PO SCH (08:31)
[2017-09-10] MEDS: Sertraline* 100 MG TAB PO SCH (08:32)
[2017-09-10] MEDS: Ciprofloxacin 400MG IVPREMIX(* 400 MG/200 ML BAG IVPB SCH ×2 (08:32→21:51)
[2017-09-10] MEDS: Insulin LISPRO* 1 UNITS UNIT SUBCUT SCH ×4 (08:32→21:15)
[2017-09-10] MEDS: Tiotropium CAP.INH* CAP.INH/18 MCG (USE ORDER SET !) INH SCH (08:45)
--- NOTE | 2017-09-10 15:14 | PN ---
Subjective Date of Service: 09/10/17 Interval History: HOSPITALIST PROGRESS NOTE Patient seen and examined at bedside. She states her symptoms have "ups and downs", but overall she feels improved. Pain is controlled. Describes night sweats last night. Tolerating diet well, no N/V, ostomy functioning. Family History: Unchanged from Admission Social History: Unchanged from Admission Past Medical History: Unchanged from Admission Objective Active Medications: Acetaminophen (Tylenol Tab*) 650 mg PO Q4H PRN PRN Reason: FEVER/PAIN Last Admin: 09/09/17 13:42 Dose: 650 mg Albuterol (Ventolin Hfa Inhaler*) 2 puff INH Q4H PRN PRN Reason: SOB/WHEEZING Alprazolam (Xanax Tab*) 0.25 mg PO TID PRN PRN Reason: ANXIETY Last Admin: 09/08/17 23:19 Dose: 0.25 mg Aspirin (Aspirin Ec Tab*) 81 mg PO DAILY [facility] Last Admin: 09/10/17 08:31 Dose: 81 mg Atorvastatin Calcium (Lipitor*) 80 mg PO DAILY [facility] Last Admin: 09/10/17 08:31 Dose: 80 mg Dextrose (D50w Syringe 50 Ml*) 12.5 gm IV PUSH .FOR FS < 60 - SS PRN PRN Reason: FS < 60 Diltiazem HCl (Cardizem Cd Cap*) 240 mg PO DAILY [facility] Last Admin: 09/10/17 08:31 Dose: 240 mg Ezetimibe (Zetia Tab*) 10 mg PO DAILY [facility] Last Admin: 09/10/17 08:31 Dose: 10 mg Heparin Sodium (Porcine) (Heparin Vial(*)) 5,000 units SUBCUT Q8HR [facility] Last Admin: 09/10/17 14:11 Dose: 5,000 units Ciprofloxacin/Dextrose (Cipro 400 Mg Ivpremix(*)) 400 mg in 200 mls @ 200 mls/ hr IVPB Q12H [facility] Last Admin: 09/10/17 08:32 Dose: 200 mls/hr Metronidazole/Sodium Chloride (Flagyl 500 Mg Ivpb*) 500 mg in 100 mls @ 100 mls /hr IVPB Q8H [facility] Last Admin: 09/10/17 11:47 Dose: 100 mls/hr Insulin Glargine (Lantus(*)) 10 units SUBCUT Q24H [facility] Last Admin: 09/09/17 17:18 Dose: 10 units Insulin Human Lispro (Humalog*) 0 units SUBCUT ACHS JL PRN Reason: Protocol Last Admin: 09/10/17 12:51 Dose: 2 units Iodixanol (Visipaque* 320 (Contrast)) 91 ml IV ONCE [facility] Stop: 09/11/17 07:46 Last Admin: 09/09/17 13:20 Dose: 91 ml Levothyroxine Sodium (Synthroid Tab*) 200 mcg PO DAILY@0600 [facility] Last Admin: 09/10/17 06:31 Dose: 200 mcg Metoprolol Tartrate (Lopressor Tab*) 50 mg PO DAILY [facility] Last Admin: 09/10/17 08:31 Dose: 50 mg Mometasone Furoate (Asmanex 220 Mcg Mdi *) 1 puff INH BEDTIME [facility] Last Admin: 09/09/17 21:12 Dose: 1 pst Ondansetron HCl (Zofran Inj*) 4 mg IV Q6H PRN PRN Reason: NAUSEA Pregabalin (Lyrica Cap(*)) 50 mg PO BEDTIME [facility] Last Admin: 09/09/17 20:10 Dose: 50 mg Sertraline HCl (Zoloft*) 200 mg PO DAILY [facility] Last Admin: 09/10/17 08:32 Dose: 200 mg Tiotropium [place] (Spiriva Cap.Inh*) 1 cap INH DAILY [facility] Last Admin: 09/10/17 08:45 Dose: 1 cap.inh Trazodone HCl (Desyrel Tab*) 100 mg PO BEDTIME [facility] Last Admin: 09/09/17 20:10 Dose: 100 mg Vital Signs - 8 hr 09/10/17 09/10/17 09/10/17 08:00 08:29 08:45 Temperature 97.7 F Pulse Rate 88 98 Respiratory 22 22 16 Rate Blood Pressure 112/74 (mmHg) O2 Sat by Pulse 100 98 Oximetry 09/10/17 12:15 Temperature 97.9 F Pulse Rate 103 Respiratory 18 Rate Blood Pressure 98/55 (mmHg) O2 Sat by Pulse 98 Oximetry Oxygen Devices in Use Now: Nasal Cannula Appearance: Pleasant obese lady lying in bed in [facility]. Eyes: No Scleral Icterus Ears/Nose/Mouth/Throat: Mucous Membranes Moist Neck: Trachea Midline Respiratory: Symmetrical Chest Expansion and Respiratory Effort, Clear to Auscultation Cardiovascular: - - Normal S1 and S2, irregularly irregular Abdominal: - - Obese, soft, mild LLQ tendernes, brown stool in ostomy bag Neurological: Alert and Oriented x 3, NL Muscle Strength and Tone Result Diagrams: 09/10/17 06:12 09/10/17 06:12 Assess/Plan/Problems-Billing Assessment: Mrs. Ziegler is a 66yo F with PMH of obesity, Afib, COPD on home O2 2 liters/ min, PVF, GERD, diastolic CHF with EF 55%, chronic pain, HTN, DVT, PE, RYAN, diabetes, bowel obstruction requiring colostomy, CAD s/p CABG, s/p AVR (porcine) , HLD, hypothyroidism, who presented to ED with c/o weakness and malaise, found to have a large LLQ mass. - Patient Problems (1) Sepsis Comment: - Meets sepsis criteria with tachycardia, tachypnea. - Source is intra abdominal infection with LLQ phlegmon. (2) Abdominal mass, left lower quadrant Comment: - Patient presented with LLQ pain, malaise, weakness. - CT abdome and pelvis showed a large mass on the LLQ with prominent surrounding interstitial stranding which may represent a phlegmonous process. - Surgery input appreciated - continue antibiotics and repeat CT on 09/12/17. (3) GI bleed Comment: - Patient had recent admission for hematochezia. - Colonoscopy done at [place] showed diverticulosis, few non-bleeding colonic angioectasias treated with APC. - She denies further bleeding, but has been off anticoagulation. (4) Atrial fibrillation Comment: - Continue metoprolol and Cardizem. (5) Hx of pulmonary embolus Comment: - As per pt she is unclear if she has a hx of PE, but does report very distant hx of DVT. - CTA chest and LE doppler were negative this admission. (6) COPD (chronic obstructive pulmonary disease) Comment: - Stable. - Continue bronchodilators. (7) Diabetes Comment: - Continue Lantus and Lispro SS. (8) DVT prophylaxis Comment: - SQ heparin. (9) Full code status
[2017-09-10] MEDS: Insulin GLARGINE(*) 1 UNITS UNIT SUBCUT SCH (17:26)
[2017-09-10] MEDS: Acetaminophen TAB* 325 MG PO PRN (20:21)
[2017-09-10] MEDS: Pregabalin CAP(*) 50 MG PO SCH (20:24)
[2017-09-10] MEDS: traZODone TAB* 100 MG PO SCH (20:26)
[2017-09-10] MEDS: Mometasone 220 MCG MDI INH SCH (20:48)
[2017-09-11] MEDS: metroNIDAZOLE IV 500 MG/100ML* 500 MG/100 ML BAG IVPB SCH ×3 (03:06→19:34)
[2017-09-11] MEDS: ALPRAZolam TAB* 0.25 MG PO PRN (04:35)
[2017-09-11] MEDS: Levothyroxine TAB* 100 MCG TAB PO SCH (04:57)
[2017-09-11] MEDS: Heparin VIAL(*) 5000 UNITS/ML VIAL (FIVE THOUSAND) SUBCUT SCH ×3 (04:57→21:30)
[2017-09-11] MEDS ORDERED: Metoprolol Tartrate IV* 1 MG/ML 5 ML VIAL ONE (06:45)
[2017-09-11] MEDS: Metoprolol Tartrate IV* 1 MG/ML 5 ML VIAL IV PRN (06:53)
[2017-09-11] MEDS: Metoprolol Tartrate TAB* 50 mg PO SCH ×2 (06:54→07:51)
[2017-09-11 07:02] LABS: ABS Basophils 0.1 10^3/ul (0-0.2); ABS Eosinophils 0.1 10^3/ul (0-0.6); ABS Lymphocytes 1.6 10^3/ul (1.0-4.8); ABS Monocytes 1.2 10^3/ul (0-0.8); ABS Neutrophils 11.5 10^3/ul (1.5-7.7); ABS Nucleated RBC 0 10^3/ul; Eosinophil % 0.5 % (0-6); Hematocrit 29 % (35-47); Hemoglobin 9.2 g/dl (12.0-16.0); Lymphocyte % 11.4 % (25-47); Mean Corpuscular HGB Conc 32 g/dl (31-36); Mean Corpuscular Hemoglobin 27 pg (27-31); Mean Corpuscular Volume 84 fL (80-97); Mean Platelet Volume 8.5 um3 (7.4-10.4); Nucleated Red Blood Cells % 0.1; Platelet Count 273 10^3/ul (150-450); Red Blood Count 3.47 10^6/ul (4.0-5.4); Red Cell Distribution Width 18 % (10.5-15); White Blood Count 14.4 10^3/ul (3.5-10.8)
[2017-09-11] MEDS: Insulin LISPRO* 1 UNITS UNIT SUBCUT SCH ×4 (07:53→21:29)
[2017-09-11] MEDS: Ciprofloxacin 400MG IVPREMIX(* 400 MG/200 ML BAG IVPB SCH ×2 (09:01→21:30)
[2017-09-11] MEDS: Sertraline* 100 MG TAB PO SCH (09:14)
[2017-09-11] MEDS: Atorvastatin* 80 MG TAB PO SCH (09:14)
[2017-09-11] MEDS: Aspirin EC TAB* 81 MG TAB.EC PO SCH (09:14)
[2017-09-11] MEDS: Ezetimibe TAB* 10 MG PO SCH (09:14)
[2017-09-11] MEDS: Diltiazem CD CAP* 240 MG PO SCH (09:14)
[2017-09-11] MEDS: Tiotropium CAP.INH* CAP.INH/18 MCG (USE ORDER SET !) INH SCH (09:45)
--- NOTE | 2017-09-11 15:00 | PN ---
Subjective Date of Service: 09/11/17 Interval History: HOSPITALIST PROGRESS NOTE Patient seen and examined at bedside. She felt a little off this morning. Had Afib RVR overnight requiring extra Metoprolol IV. Pain is unchanged, denies N/V, but appetite is poor. Ostomy working. Family History: Unchanged from Admission Social History: Unchanged from Admission Past Medical History: Unchanged from Admission Objective Active Medications: Acetaminophen (Tylenol Tab*) 650 mg PO Q4H PRN PRN Reason: FEVER/PAIN Last Admin: 09/10/17 20:21 Dose: 650 mg Albuterol (Ventolin Hfa Inhaler*) 2 puff INH Q4H PRN PRN Reason: SOB/WHEEZING Alprazolam (Xanax Tab*) 0.25 mg PO TID PRN PRN Reason: ANXIETY Last Admin: 09/11/17 04:35 Dose: 0.25 mg Aspirin (Aspirin Ec Tab*) 81 mg PO DAILY [facility] Last Admin: 09/11/17 09:14 Dose: 81 mg Atorvastatin Calcium (Lipitor*) 80 mg PO DAILY [facility] Last Admin: 09/11/17 09:14 Dose: 80 mg Dextrose (D50w Syringe 50 Ml*) 12.5 gm IV PUSH .FOR FS < 60 - SS PRN PRN Reason: FS < 60 Diltiazem HCl (Cardizem Cd Cap*) 240 mg PO DAILY [facility] Last Admin: 09/11/17 09:14 Dose: 240 mg Ezetimibe (Zetia Tab*) 10 mg PO DAILY [facility] Last Admin: 09/11/17 09:14 Dose: 10 mg Heparin Sodium (Porcine) (Heparin Vial(*)) 5,000 units SUBCUT Q8HR [facility] Last Admin: 09/11/17 04:57 Dose: 5,000 units Ciprofloxacin/Dextrose (Cipro 400 Mg Ivpremix(*)) 400 mg in 200 mls @ 200 mls/ hr IVPB Q12H [facility] Last Admin: 09/11/17 09:01 Dose: 200 mls/hr Metronidazole/Sodium Chloride (Flagyl 500 Mg Ivpb*) 500 mg in 100 mls @ 100 mls /hr IVPB Q8H [facility] Last Admin: 09/11/17 12:47 Dose: 100 mls/hr Insulin Glargine (Lantus(*)) 10 units SUBCUT Q24H [facility] Last Admin: 09/10/17 17:26 Dose: 10 units Insulin Human Lispro (Humalog*) 0 units SUBCUT ACHS JL PRN Reason: Protocol Last Admin: 09/11/17 12:39 Dose: Not Given Levothyroxine Sodium (Synthroid Tab*) 200 mcg PO DAILY@0600 [facility] Last Admin: 09/11/17 04:57 Dose: 200 mcg Metoprolol Tartrate (Lopressor Tab*) 50 mg PO DAILY [facility] Last Admin: 09/11/17 07:51 Dose: Not Given Metoprolol Tartrate (Lopressor Iv*) 5 mg IV Q6H PRN PRN Reason: BLOOD PRESSURE Last Admin: 09/11/17 06:53 Dose: 5 mg Mometasone Furoate (Asmanex 220 Mcg Mdi *) 1 puff INH BEDTIME [facility] Last Admin: 09/10/17 20:48 Dose: 1 pst Ondansetron HCl (Zofran Inj*) 4 mg IV Q6H PRN PRN Reason: NAUSEA Pregabalin (Lyrica Cap(*)) 50 mg PO BEDTIME [facility] Last Admin: 09/10/17 20:24 Dose: 50 mg Sertraline HCl (Zoloft*) 200 mg PO DAILY [facility] Last Admin: 09/11/17 09:14 Dose: 200 mg Tiotropium [place] (Spiriva Cap.Inh*) 1 cap INH DAILY [facility] Last Admin: 09/11/17 09:45 Dose: 1 cap.inh Trazodone HCl (Desyrel Tab*) 100 mg PO BEDTIME [facility] Last Admin: 09/10/17 20:26 Dose: 100 mg Vital Signs - 8 hr 09/11/17 09/11/17 09/11/17 07:30 08:00 09:47 Temperature 99.1 F Pulse Rate 97 Respiratory 24 20 18 Rate Blood Pressure 93/58 (mmHg) O2 Sat by Pulse 99 99 Oximetry 09/11/17 12:43 Temperature 99.0 F Pulse Rate 101 Respiratory 16 Rate Blood Pressure 106/61 (mmHg) O2 Sat by Pulse 99 Oximetry Oxygen Devices in Use Now: None Appearance: Pleasant lady lying in bed in NAD. Eyes: No Scleral Icterus Ears/Nose/Mouth/Throat: Mucous Membranes Moist Neck: Trachea Midline Respiratory: Symmetrical Chest Expansion and Respiratory Effort, Clear to Auscultation Cardiovascular: - - Normal S1 and S2, irregularly irregular Abdominal: - - Obese, soft, mild LLQ tenderness, no guarding or rebound, BS+, functioning colostomy. Neurological: Alert and Oriented x 3, NL Muscle Strength and Tone Result Diagrams: 09/11/17 06:38 09/10/17 06:12 Assess/Plan/Problems-Billing Assessment: Mrs. Ziegler is a 66yo F with PMH of obesity, Afib, COPD on home O2 2 liters/ min, PVF, GERD, diastolic CHF with EF 55%, chronic pain, HTN, DVT, PE, RYAN, diabetes, bowel obstruction requiring colostomy, CAD s/p CABG, s/p AVR (porcine) , HLD, hypothyroidism, who presented to ED with c/o weakness and malaise, found to have a large LLQ mass. - Patient Problems (1) Sepsis Comment: - Meets sepsis criteria with tachycardia, tachypnea. - Source is intra abdominal infection with LLQ phlegmon. (2) Abdominal mass, left lower quadrant Comment: - Patient presented with LLQ pain, malaise, weakness. - CT abdome and pelvis showed a large mass on the LLQ with prominent surrounding interstitial stranding which may represent a phlegmonous process. - Surgery input appreciated - continue antibiotics and repeat CT on 09/12/17. (3) GI bleed Comment: - Patient had recent admission for hematochezia. - Colonoscopy done at [place] showed diverticulosis, few non-bleeding colonic angioectasias treated with APC. - She denies further bleeding, but has been off anticoagulation. (4) Atrial fibrillation Comment: - Continue metoprolol and Cardizem. (5) Hx of pulmonary embolus Comment: - As per pt she is unclear if she has a hx of PE, but does report very distant hx of DVT. - CTA chest and LE doppler were negative this admission. (6) COPD (chronic obstructive pulmonary disease) Comment: - Stable. - Continue bronchodilators. (7) Diabetes Comment: - Continue Lantus and Lispro SS. (8) DVT prophylaxis Comment: - SQ heparin. (9) Full code status Status and Disposition: Inpatient.
[2017-09-11] MEDS: Insulin GLARGINE(*) 1 UNITS UNIT SUBCUT SCH (17:09)
[2017-09-11] MEDS: Mometasone 220 MCG MDI INH SCH (19:46)
[2017-09-11] MEDS: traZODone TAB* 100 MG PO SCH (21:30)
[2017-09-11] MEDS: Pregabalin CAP(*) 50 MG PO SCH (21:30)
[2017-09-12] MEDS: metroNIDAZOLE IV 500 MG/100ML* 500 MG/100 ML BAG IVPB SCH ×3 (04:26→20:57)
[2017-09-12] MEDS: Metoprolol Tartrate IV* 1 MG/ML 5 ML VIAL IV PRN (05:23)
[2017-09-12] MEDS: Levothyroxine TAB* 100 MCG TAB PO SCH (05:24)
[2017-09-12] MEDS: Heparin VIAL(*) 5000 UNITS/ML VIAL (FIVE THOUSAND) SUBCUT SCH ×3 (05:24→21:08)
[2017-09-12] MEDS: Tiotropium CAP.INH* CAP.INH/18 MCG (USE ORDER SET !) INH SCH (08:03)
--- NOTE | 2017-09-12 08:24 | PN ---
Progress Note - Progress Note Date of Service: 09/12/17 SOAP: Subjective: Pt seen adn examined. feels "ok". Overnight events noted. tachycardic and diaphoretic in early am hours. appetite poor. Ostomy functioning. Objective: Temp Pulse Resp BP Pulse Ox 97.8 F 113 22 101/60 98 09/12/17 07:35 09/12/17 07:35 09/12/17 07:35 09/12/17 07:35 09/12/17 07:35 UO ok abdo: soft/ obese/ distended. Tender at LLQ and inferior to ostomy. Large ventral hernia. 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 Now recent intrumentation for AVM at [facility] early this month and now with evidence of inflamatory intra-abdo process. Plan: CT scan to see if discrete collection that is amenable to perc drainage. If unchanged, Pt may need OR for ex lap, distal colon resection, resiting of colostomy Pt aware of this plan.
[2017-09-12 08:31] LABS: ABS Basophils 0.1 10^3/ul (0-0.2); ABS Eosinophils 0.1 10^3/ul (0-0.6); ABS Lymphocytes 1.4 10^3/ul (1.0-4.8); ABS Monocytes 1.1 10^3/ul (0-0.8); ABS Neutrophils 8.4 10^3/ul (1.5-7.7); ABS Nucleated RBC 0 10^3/ul; Hematocrit 27 % (35-47); Hemoglobin 8.5 g/dl (12.0-16.0); Lymphocyte % 12.2 % (25-47); Mean Corpuscular HGB Conc 32 g/dl (31-36); Mean Corpuscular Hemoglobin 27 pg (27-31); Mean Corpuscular Volume 84 fL (80-97); Mean Platelet Volume 8.4 um3 (7.4-10.4); Nucleated Red Blood Cells % 0; Platelet Count 254 10^3/ul (150-450); Red Blood Count 3.19 10^6/ul (4.0-5.4); Red Cell Distribution Width 18 % (10.5-15); White Blood Count 11.2 10^3/ul (3.5-10.8)
[2017-09-12 08:52] LABS: EGFR Non-African American 59.6 (>60)
[2017-09-12] MEDS: Insulin LISPRO* 1 UNITS UNIT SUBCUT SCH ×4 (08:57→21:07)
[2017-09-12] MEDS: Ciprofloxacin 400MG IVPREMIX(* 400 MG/200 ML BAG IVPB SCH ×2 (08:57→22:43)
[2017-09-12] MEDS: Metoprolol Tartrate TAB* 50 mg PO SCH (08:58)
[2017-09-12] MEDS: Sertraline* 100 MG TAB PO SCH (08:58)
[2017-09-12] MEDS: Aspirin EC TAB* 81 MG TAB.EC PO SCH (08:58)
[2017-09-12] MEDS: Ezetimibe TAB* 10 MG PO SCH (08:58)
[2017-09-12] MEDS: Atorvastatin* 80 MG TAB PO SCH (08:58)
[2017-09-12] MEDS: Diltiazem CD CAP* 240 MG PO SCH (08:58)
--- NOTE | 2017-09-12 09:06 | RAD ---
CLINICAL HISTORY: Left lower quadrant phlegmon, follow-up COMPARISON: September 08, 2017 TECHNIQUE: Multiple contiguous axial CT scans were obtained of the abdomen and pelvis, without intravenous contrast enhancement. Coronal and sagittal multiplanar reformations are submitted for review. Oral contrast was not administered. FINDINGS: The study is limited by the lack of intravenous contrast. This limits evaluation of the solid organs and vasculature. LUNG BASES: There are small bilateral pleural effusions. LIVER: The liver is normal in shape, size, contour, and attenuation. BILE DUCTS: There is no intrahepatic or extrahepatic biliary dilatation. GALLBLADDER: The gallbladder is not visualized. Surgical clips are noted in the gallbladder fossa. PANCREAS: The pancreas is normal, without mass or ductal dilatation. SPLEEN: Normal in size and appearance. UPPER GI TRACT: Evaluation of the gastrointestinal tract is limited by incomplete gastric distention. The upper GI tract is unremarkable. SMALL BOWEL AND MESENTERY: The small bowel is normal in contour, course, and caliber. There is no obstruction or dilatation. COLON: There are multiple diverticula of the sigmoid colon. There is no pericolonic inflammatory change. ADRENALS: Normal bilaterally. KIDNEYS: There is stable mild left-sided hydronephrosis and proximal hydroureter. BLADDER: The bladder is collapsed and is not well evaluated. Evaluation is limited by streak artifact from a left hip prosthesis. PELVIC ORGANS: Evaluation pelvic organs is limited by streak artifact from a left hip prosthesis. Again noted is a soft tissue mass of the left hemipelvis measuring 5.3 x 4.8 x 5.3 cm in size. This is similar to the previous examination. There is persistent inflammatory change of the adjacent fat of the questionable low-attenuation center. AORTA: There is calcific atherosclerotic disease of the abdominal aorta and its branches, without aneurysmal dilatation IVC: Unremarkable LYMPH NODES: There is no lymphadenopathy by size criteria. ABDOMINAL WALL: Again noted is a large ventral hernia containing loops of small bowel and colon. BONES AND SOFT TISSUES: Degenerative changes are noted of the spine. The patient is status post left hip arthroplasty OTHER: None IMPRESSION: 1. AGAIN NOTED IS AN APPARENT INFLAMMATORY MASS OF THE LEFT LOWER QUADRANT, SIMILAR TO THE PREVIOUS EXAMINATION. THE DIFFERENTIAL INCLUDES PHLEGMON, EARLY ABSCESS, OR NEOPLASM. RECOMMEND CONTINUED ATTENTION ON FOLLOW-UP EXAMINATIONS OR CONSIDERATION OF TISSUE SAMPLING. 2. THERE IS STABLE MILD LEFT HYDRONEPHROSIS LIKELY RELATED TO THE LEFT PELVIC MASS. 3. AGAIN NOTED IS A LARGE VENTRAL HERNIA. 4. SMALL BILATERAL PLEURAL EFFUSIONS. 5. ATHEROSCLEROSIS. 6. DIVERTICULOSIS..
[2017-09-12] MEDS ORDERED: Diltiazem DRIP* 100 MG/100 ML ADDV.BAG IVPB SCH (10:00)
--- NOTE | 2017-09-12 17:12 | PN ---
Subjective Date of Service: 09/12/17 Interval History: HOSPITALIST PROGRESS NOTE Patient seen and examined at bedside. She feels "blah" today. Abdominal pain is unchanged, appetite is poor, denies N/ V. No CP, palpitations, lightheadedness, even when her HR was 180. Family History: Unchanged from Admission Social History: Unchanged from Admission Past Medical History: Unchanged from Admission Objective Active Medications: Acetaminophen (Tylenol Tab*) 650 mg PO Q4H PRN PRN Reason: FEVER/PAIN Last Admin: 09/10/17 20:21 Dose: 650 mg Albuterol (Ventolin Hfa Inhaler*) 2 puff INH Q4H PRN PRN Reason: SOB/WHEEZING Alprazolam (Xanax Tab*) 0.25 mg PO TID PRN PRN Reason: ANXIETY Last Admin: 09/11/17 04:35 Dose: 0.25 mg Aspirin (Aspirin Ec Tab*) 81 mg PO DAILY [facility] Last Admin: 09/12/17 08:58 Dose: 81 mg Atorvastatin Calcium (Lipitor*) 80 mg PO DAILY [facility] Last Admin: 09/12/17 08:58 Dose: 80 mg Dextrose (D50w Syringe 50 Ml*) 12.5 gm IV PUSH .FOR FS < 60 - SS PRN PRN Reason: FS < 60 Diltiazem HCl (Cardizem Cd Cap*) 240 mg PO DAILY [facility] Last Admin: 09/12/17 08:58 Dose: 240 mg Ezetimibe (Zetia Tab*) 10 mg PO DAILY [facility] Last Admin: 09/12/17 08:58 Dose: 10 mg Heparin Sodium (Porcine) (Heparin Vial(*)) 5,000 units SUBCUT Q8HR [facility] Last Admin: 09/12/17 14:06 Dose: 5,000 units Ciprofloxacin/Dextrose (Cipro 400 Mg Ivpremix(*)) 400 mg in 200 mls @ 200 mls/ hr IVPB Q12H [facility] Last Admin: 09/12/17 08:57 Dose: 200 mls/hr Metronidazole/Sodium Chloride (Flagyl 500 Mg Ivpb*) 500 mg in 100 mls @ 100 mls /hr IVPB Q8H [facility] Last Admin: 09/12/17 12:32 Dose: 100 mls/hr Insulin Glargine (Lantus(*)) 10 units SUBCUT Q24H [facility] Last Admin: 09/11/17 17:09 Dose: 10 units Insulin Human Lispro (Humalog*) 0 units SUBCUT ACHS JL PRN Reason: Protocol Last Admin: 09/12/17 16:57 Dose: Not Given Levothyroxine Sodium (Synthroid Tab*) 200 mcg PO DAILY@0600 [facility] Last Admin: 09/12/17 05:24 Dose: 200 mcg Metoprolol Tartrate (Lopressor Tab*) 50 mg PO DAILY [facility] Last Admin: 09/12/17 08:58 Dose: 50 mg Metoprolol Tartrate (Lopressor Iv*) 5 mg IV Q6H PRN PRN Reason: BLOOD PRESSURE Last Admin: 09/12/17 05:23 Dose: 5 mg Mometasone Furoate (Asmanex 220 Mcg Mdi *) 1 puff INH BEDTIME [facility] Last Admin: 09/11/17 19:46 Dose: 1 pst Ondansetron HCl (Zofran Inj*) 4 mg IV Q6H PRN PRN Reason: NAUSEA Last Admin: 09/11/17 15:19 Dose: 4 mg Pregabalin (Lyrica Cap(*)) 50 mg PO BEDTIME [facility] Last Admin: 09/11/17 21:30 Dose: 50 mg Sertraline HCl (Zoloft*) 200 mg PO DAILY [facility] Last Admin: 09/12/17 08:58 Dose: 200 mg Tiotropium [place] (Spiriva Cap.Inh*) 1 cap INH DAILY [facility] Last Admin: 09/12/17 08:03 Dose: 1 cap.inh Trazodone HCl (Desyrel Tab*) 100 mg PO BEDTIME [facility] Last Admin: 09/11/17 21:30 Dose: 100 mg Vital Signs - 8 hr 09/12/17 09/12/17 09/12/17 11:12 11:30 14:53 Temperature 97.5 F 98.0 F Pulse Rate 105 55 Respiratory 18 18 Rate Blood Pressure 89/65 94/66 97/60 (mmHg) O2 Sat by Pulse 99 100 Oximetry Oxygen Devices in Use Now: Nasal Cannula - 2 liters Appearance: Pleasant lady sitting up in a chair in NAD. Eyes: No Scleral Icterus Ears/Nose/Mouth/Throat: Mucous Membranes Moist Neck: Trachea Midline Respiratory: Symmetrical Chest Expansion and Respiratory Effort, Clear to Auscultation Cardiovascular: - - Normal S1 and S2, irregularly irregular Abdominal: - - Obese, mild LLQ tenderness, NG, NR, BS+, working colostomy Neurological: Alert and Oriented x 3 Result Diagrams: 09/12/17 08:10 09/12/17 08:10 Assess/Plan/Problems-Billing Assessment: Mrs. Ziegler is a 66yo F with PMH of obesity, Afib, COPD on home O2 2 liters/ min, PVF, GERD, diastolic CHF with EF 55%, chronic pain, HTN, DVT, PE, RYAN, diabetes, bowel obstruction requiring colostomy, CAD s/p CABG, s/p AVR (porcine) , HLD, hypothyroidism, who presented to ED with c/o weakness and malaise, found to have a large LLQ mass. - Patient Problems (1) Sepsis Comment: - Meets sepsis criteria with tachycardia, tachypnea. - Source is intra abdominal infection with LLQ phlegmon. (2) Abdominal mass, left lower quadrant Comment: - Patient presented with LLQ pain, malaise, weakness. - CT abdome and pelvis showed a large mass on the LLQ with prominent surrounding interstitial stranding which may represent a phlegmonous process. - Surgery input appreciated - repeat CT is unchanged - d/w Dr. Jackson - recommends we continue antibiotics. If she needs surgery in the future, will need Cardiology consult pre op. - Continue Cipro/Flagyl #4. (3) GI bleed Comment: - Patient had recent admission for hematochezia. - Colonoscopy done at [place] showed diverticulosis, few non-bleeding colonic angioectasias treated with APC. - She denies further bleeding, but has been off anticoagulation. (4) Atrial fibrillation Comment: - Uncontrolled, especially in AM. Suspect her Metoprolol is wearing off prior to her next dose. - Will change to long acting metoprolol and continue Cardizem. - Looking at her Tele strips, her wide complex tachycardia seems to be Afib with aberrancy. Her magnesium is 1.7 - will replete. (5) Hx of pulmonary embolus Comment: - As per pt she is unclear if she has a hx of PE, but does report very distant hx of DVT. - CTA chest and LE doppler were negative this admission. (6) COPD (chronic obstructive pulmonary disease) Comment: - Stable. - Continue bronchodilators. (7) Diabetes Comment: - Continue Lantus and Lispro SS. (8) DVT prophylaxis Comment: - SQ heparin. (9) Full code status Status and Disposition: Inpatient.
[2017-09-12] MEDS ORDERED: NS 0.9% 100 ML* 100 ML ONE (17:40)
[2017-09-12] MEDS ORDERED: Magnesium Sulfate IV* 3 GM in NS 0.9% 100 ML* 100 ML IVPB ONE (18:00)
[2017-09-12] MEDS: Insulin GLARGINE(*) 1 UNITS UNIT SUBCUT SCH (18:02)
[2017-09-12] MEDS: traZODone TAB* 100 MG PO SCH (21:08)
[2017-09-12] MEDS: Pregabalin CAP(*) 50 MG PO SCH (21:08)
[2017-09-12] MEDS: Mometasone 220 MCG MDI INH SCH (21:26)
[2017-09-13] MEDS: metroNIDAZOLE IV 500 MG/100ML* 500 MG/100 ML BAG IVPB SCH ×3 (04:10→20:18)
[2017-09-13] MEDS: Metoprolol Succinate XL TAB* 50 MG PO SCH (05:35)
[2017-09-13] MEDS: Levothyroxine TAB* 100 MCG TAB PO SCH (05:35)
[2017-09-13] MEDS: Heparin VIAL(*) 5000 UNITS/ML VIAL (FIVE THOUSAND) SUBCUT SCH ×3 (05:35→22:11)
[2017-09-13 05:56] LABS: ABS Basophils 0.1 10^3/ul (0-0.2); ABS Eosinophils 0.2 10^3/ul (0-0.6); ABS Lymphocytes 1.2 10^3/ul (1.0-4.8); ABS Neutrophils 7.8 10^3/ul (1.5-7.7); ABS Nucleated RBC 0 10^3/ul; Eosinophil % 1.8 % (0-6); Hematocrit 27 % (35-47); Hemoglobin 8.8 g/dl (12.0-16.0); Lymphocyte % 11.7 % (25-47); Mean Corpuscular HGB Conc 32 g/dl (31-36); Mean Corpuscular Hemoglobin 27 pg (27-31); Mean Corpuscular Volume 84 fL (80-97); Mean Platelet Volume 8.3 um3 (7.4-10.4); Nucleated Red Blood Cells % 0.1; Platelet Count 249 10^3/ul (150-450); Red Blood Count 3.26 10^6/ul (4.0-5.4); Red Cell Distribution Width 18 % (10.5-15); White Blood Count 10.2 10^3/ul (3.5-10.8)
[2017-09-13 06:13] LABS: EGFR Non-African American 64.3 (>60)
[2017-09-13] MEDS: Insulin LISPRO* 1 UNITS UNIT SUBCUT SCH ×4 (08:56→22:10)
[2017-09-13] MEDS: Metoprolol Tartrate IV* 1 MG/ML 5 ML VIAL IV PRN (09:03)
[2017-09-13] MEDS: Ezetimibe TAB* 10 MG PO SCH (09:04)
[2017-09-13] MEDS: Sertraline* 100 MG TAB PO SCH (09:04)
[2017-09-13] MEDS: Diltiazem CD CAP* 240 MG PO SCH (09:04)
[2017-09-13] MEDS: Aspirin EC TAB* 81 MG TAB.EC PO SCH (09:04)
[2017-09-13] MEDS: Atorvastatin* 80 MG TAB PO SCH (09:04)
[2017-09-13] MEDS: Ciprofloxacin 400MG IVPREMIX(* 400 MG/200 ML BAG IVPB SCH ×2 (09:08→22:11)
[2017-09-13] MEDS: Tiotropium CAP.INH* CAP.INH/18 MCG (USE ORDER SET !) INH SCH (09:58)
--- NOTE | 2017-09-13 10:14 | PN ---
Progress Note - Progress Note Date of Service: 09/13/17 SOAP: Subjective: Pt seen and examined. Doing well, finally getting a good night sleep. appetite "up ands down". Ostomy functioning. Objective: af vss abdo: soft/ obese/ distended. Tender at LLQ and inferior to ostomy. Large ventral hernia. unchanged exam CT scan reviewed. 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 Now recent intrumentation for AVM at [facility] early this month and now with evidence of inflamatory intra-abdo process. Unlikely malignancy. Pt represents high risk surgical candidate whose pain is controlled, shows no signs of obstruction and is no longer showing evidence of SIRS Plan: Risk outweigh benefits to surgical intervention. I do not recommend percutaneous sampling/drainage at this time abx advance diet will follow as in-pt and as outpatient
[2017-09-13] MEDS: Insulin GLARGINE(*) 1 UNITS UNIT SUBCUT SCH (17:48)
[2017-09-13] MEDS ORDERED: Furosemide IV* 10 MG/ML VIAL (40 MG) IV ONE (18:50)
--- NOTE | 2017-09-13 21:18 | PN ---
Subjective Date of Service: 09/13/17 Interval History: no overnight events. feels about the same. concerned about fluid retention. no sob, orthopnea, abdominal bloating. + leg swelling Family History: Unchanged from Admission Social History: Unchanged from Admission Past Medical History: Unchanged from Admission Objective Active Medications: Acetaminophen (Tylenol Tab*) 650 mg PO Q4H PRN PRN Reason: FEVER/PAIN Last Admin: 09/10/17 20:21 Dose: 650 mg Albuterol (Ventolin Hfa Inhaler*) 2 puff INH Q4H PRN PRN Reason: SOB/WHEEZING Alprazolam (Xanax Tab*) 0.25 mg PO TID PRN PRN Reason: ANXIETY Last Admin: 09/11/17 04:35 Dose: 0.25 mg Aspirin (Aspirin Ec Tab*) 81 mg PO DAILY [facility] Last Admin: 09/13/17 09:04 Dose: 81 mg Atorvastatin Calcium (Lipitor*) 80 mg PO DAILY [facility] Last Admin: 09/13/17 09:04 Dose: 80 mg Dextrose (D50w Syringe 50 Ml*) 12.5 gm IV PUSH .FOR FS < 60 - SS PRN PRN Reason: FS < 60 Diltiazem HCl (Cardizem Cd Cap*) 240 mg PO DAILY [facility] Last Admin: 09/13/17 09:04 Dose: 240 mg Ezetimibe (Zetia Tab*) 10 mg PO DAILY [facility] Last Admin: 09/13/17 09:04 Dose: 10 mg Heparin Sodium (Porcine) (Heparin Vial(*)) 5,000 units SUBCUT Q8HR [facility] Last Admin: 09/13/17 13:02 Dose: 5,000 units Ciprofloxacin/Dextrose (Cipro 400 Mg Ivpremix(*)) 400 mg in 200 mls @ 200 mls/ hr IVPB Q12H [facility] Last Admin: 09/13/17 09:08 Dose: 200 mls/hr Metronidazole/Sodium Chloride (Flagyl 500 Mg Ivpb*) 500 mg in 100 mls @ 100 mls /hr IVPB Q8H [facility] Last Admin: 09/13/17 20:18 Dose: 100 mls/hr Insulin Glargine (Lantus(*)) 10 units SUBCUT Q24H [facility] Last Admin: 09/13/17 17:48 Dose: 10 units Insulin Human Lispro (Humalog*) 0 units SUBCUT ACHS JL PRN Reason: Protocol Last Admin: 09/13/17 16:39 Dose: Not Given Levothyroxine Sodium (Synthroid Tab*) 200 mcg PO DAILY@0600 [facility] Last Admin: 09/13/17 05:35 Dose: 200 mcg Metoprolol Succinate (Toprol Xl Tab*) 50 mg PO DAILY@0600 [facility] Last Admin: 09/13/17 05:35 Dose: 50 mg Metoprolol Tartrate (Lopressor Iv*) 5 mg IV Q6H PRN PRN Reason: BLOOD PRESSURE Last Admin: 09/13/17 09:03 Dose: 5 mg Mometasone Furoate (Asmanex 220 Mcg Mdi *) 1 puff INH BEDTIME [facility] Last Admin: 09/12/17 21:26 Dose: 1 puff Ondansetron HCl (Zofran Inj*) 4 mg IV Q6H PRN PRN Reason: NAUSEA Last Admin: 09/11/17 15:19 Dose: 4 mg Pregabalin (Lyrica Cap(*)) 50 mg PO BEDTIME [facility] Last Admin: 09/12/17 21:08 Dose: 50 mg Sertraline HCl (Zoloft*) 200 mg PO DAILY [facility] Last Admin: 09/13/17 09:04 Dose: 200 mg Tiotropium [place] (Spiriva Cap.Inh*) 1 cap INH DAILY [facility] Last Admin: 09/13/17 09:58 Dose: 1 cap.inh Trazodone HCl (Desyrel Tab*) 100 mg PO BEDTIME [facility] Last Admin: 09/12/17 21:08 Dose: 100 mg Vital Signs - 8 hr 09/13/17 09/13/17 09/13/17 15:12 20:00 20:55 Temperature 97.5 F 97.8 F Pulse Rate 104 127 Respiratory 16 16 16 Rate Blood Pressure 91/60 129/89 (mmHg) O2 Sat by Pulse 97 98 Oximetry Oxygen Devices in Use Now: Nasal Cannula Appearance: alert, no distress, well appearing Eyes: No Scleral Icterus Ears/Nose/Mouth/Throat: NL Teeth, Lips, Gums Neck: NL Appearance and Movements; NL JVP Respiratory: Symmetrical Chest Expansion and Respiratory Effort Cardiovascular: NL Sounds; No Murmurs; No JVD Abdominal: - - colostomy LLQ, tender to palpation LLQ, voluntary guarding, no rebound or rigidity Extremities: - - 3+ edema to thighs Neurological: Alert and Oriented x 3 Result Diagrams: 09/13/17 05:27 09/13/17 05:27 Additional Lab and Data: Lab Results 09/08/17 09/08/17 09/08/17 Range/Units 12:20 12:20 12:20 WBC 12.7 H (3.5-10.8) 10^3/ul RBC 3.61 L (4.0-5.4) 10^6/ul Hgb 9.6 L (12.0-16.0) g/dl Hct 31 L (35-47) % MCV 85 (80-97) fL MCH 27 (27-31) pg MCHC 31 (31-36) g/dl RDW 18 H (10.5-15) % Plt Count 303 (150-450) 10^3/ul MPV 8.3 (7.4-10.4) um3 Neut % (Auto) 79.4 (38-83) % Lymph % (Auto) 11.1 L (25-47) % [place] % (Auto) 8.7 H (0-7) % Eos % (Auto) 0.4 (0-6) % Baso % (Auto) 0.4 (0-2) % Absolute Neuts (auto) 10.1 H (1.5-7.7) 10^3/ul Absolute Lymphs (auto) 1.4 (1.0-4.8) 10^3/ul Absolute Monos (auto) 1.1 H (0-0.8) 10^3/ul Absolute Eos (auto) 0.1 (0-0.6) 10^3/ul Absolute Basos (auto) 0 (0-0.2) 10^3/ul Absolute Nucleated RBC 0 10^3/ul Nucleated RBC % 0.2 ESR Cancelled INR (Anticoag Therapy) 1.35 H (0.77-1.02) APTT 26.2 (26.0-36.3) seconds Sodium 133 L (139-145) mmol/L Potassium TNP Chloride 101 (101-111) mmol/L Carbon Dioxide 25 (22-32) mmol/L Anion Gap 7 (2-11) mmol/L BUN 11 (6-24) mg/dL Creatinine 1.04 H (0.51-0.95) mg/dL Est GFR ( Amer) 68.2 (>60) Est GFR (Non-Af Amer) 53.0 (>60) BUN/Creatinine Ratio 10.6 (8-20) Glucose 103 H (70-100) mg/dL Lactic Acid (0.5-2.0) mmol/L Calcium 8.2 L (8.6-10.3) mg/dL Total Bilirubin 0.60 (0.2-1.0) mg/dL AST TNP ALT 20 (7-52) U/L Alkaline Phosphatase 69 (34-104) U/L Troponin I 0.02 (<0.04) ng/mL C-Reactive Protein 159.34 H (< 5.00) mg/L B-Natriuretic Peptide ( - 100) pg/mL Total Protein 7.0 (6.4-8.9) g/dL Albumin 2.6 L (3.2-5.2) g/dL Globulin 4.4 H (2-4) g/dL Albumin/Globulin Ratio 0.6 L (1-3) Procalcitonin (<0.6) ng/mL Blood Type Antibody Screen 09/08/17 09/08/17 09/08/17 Range/Units 12:20 13:00 13:00 WBC (3.5-10.8) 10^3/ul RBC (4.0-5.4) 10^6/ul Hgb (12.0-16.0) g/dl Hct (35-47) % MCV (80-97) fL MCH (27-31) pg MCHC (31-36) g/dl RDW (10.5-15) % Plt Count (150-450) 10^3/ul MPV (7.4-10.4) um3 Neut % (Auto) (38-83) % Lymph % (Auto) (25-47) % [place] % (Auto) (0-7) % Eos % (Auto) (0-6) % Baso % (Auto) (0-2) % Absolute Neuts (auto) (1.5-7.7) 10^3/ul Absolute Lymphs (auto) (1.0-4.8) 10^3/ul Absolute Monos (auto) (0-0.8) 10^3/ul Absolute Eos (auto) (0-0.6) 10^3/ul Absolute Basos (auto) (0-0.2) 10^3/ul Absolute Nucleated RBC 10^3/ul Nucleated RBC % ESR INR (Anticoag Therapy) (0.77-1.02) APTT (26.0-36.3) seconds Sodium (139-145) mmol/L Potassium Chloride (101-111) mmol/L Carbon Dioxide (22-32) mmol/L Anion Gap (2-11) mmol/L BUN (6-24) mg/dL Creatinine (0.51-0.95) mg/dL Est GFR ( Amer) (>60) Est GFR (Non-Af Amer) (>60) BUN/Creatinine Ratio (8-20) Glucose (70-100) mg/dL Lactic Acid 1.2 (0.5-2.0) mmol/L Calcium (8.6-10.3) mg/dL Total Bilirubin (0.2-1.0) mg/dL AST ALT (7-52) U/L Alkaline Phosphatase (34-104) U/L Troponin I (<0.04) ng/mL C-Reactive Protein (< 5.00) mg/L B-Natriuretic Peptide 752 H ( - 100) pg/mL Total Protein (6.4-8.9) g/dL Albumin (3.2-5.2) g/dL Globulin (2-4) g/dL Albumin/Globulin Ratio (1-3) Procalcitonin 0.1 (<0.6) ng/mL Blood Type Antibody Screen 09/08/17 09/08/17 09/08/17 Range/Units 13:00 15:58 18:16 WBC (3.5-10.8) 10^3/ul RBC (4.0-5.4) 10^6/ul Hgb (12.0-16.0) g/dl Hct (35-47) % MCV (80-97) fL MCH (27-31) pg MCHC (31-36) g/dl RDW (10.5-15) % Plt Count (150-450) 10^3/ul MPV (7.4-10.4) um3 Neut % (Auto) (38-83) % Lymph % (Auto) (25-47) % [place] % (Auto) (0-7) % Eos % (Auto) (0-6) % Baso % (Auto) (0-2) % Absolute Neuts (auto) (1.5-7.7) 10^3/ul Absolute Lymphs (auto) (1.0-4.8) 10^3/ul Absolute Monos (auto) (0-0.8) 10^3/ul Absolute Eos (auto) (0-0.6) 10^3/ul Absolute Basos (auto) (0-0.2) 10^3/ul Absolute Nucleated RBC 10^3/ul Nucleated RBC % ESR 97 H INR (Anticoag Therapy) (0.77-1.02) APTT (26.0-36.3) seconds Sodium (139-145) mmol/L Potassium Chloride (101-111) mmol/L Carbon Dioxide (22-32) mmol/L Anion Gap (2-11) mmol/L BUN (6-24) mg/dL Creatinine (0.51-0.95) mg/dL Est GFR ( Amer) (>60) Est GFR (Non-Af Amer) (>60) BUN/Creatinine Ratio (8-20) Glucose (70-100) mg/dL Lactic Acid 0.8 (0.5-2.0) mmol/L Calcium (8.6-10.3) mg/dL Total Bilirubin (0.2-1.0) mg/dL AST ALT (7-52) U/L Alkaline Phosphatase (34-104) U/L Troponin I (<0.04) ng/mL C-Reactive Protein (< 5.00) mg/L B-Natriuretic Peptide ( - 100) pg/mL Total Protein (6.4-8.9) g/dL Albumin (3.2-5.2) g/dL Globulin (2-4) g/dL Albumin/Globulin Ratio (1-3) Procalcitonin (<0.6) ng/mL Blood Type A Negative Antibody Screen Negative Assess/Plan/Problems-Billing Assessment: Mrs. Ziegler is a 66yo F with PMH of obesity, Afib, COPD on home O2 2 liters/ min, PVF, GERD, diastolic CHF with EF 55%, chronic pain, HTN, DVT, PE, RYAN, diabetes, bowel obstruction requiring colostomy, CAD s/p CABG, s/p AVR (porcine) , HLD, hypothyroidism, who presented to ED with c/o weakness and malaise, found to have a large LLQ mass. - Patient Problems (1) Abdominal mass, left lower quadrant Current Visit: Yes Status: Acute Code(s): R19.04 - LEFT LOWER QUADRANT ABDOMINAL SWELLING, MASS AND LUMP SNOMED Code(s): 414940737 Comment: CT showed a large mass on the LLQ with prominent surrounding interstitial stranding which may represent a phlegmonous process. Dr. Jackson recommending antibiotics, no OR plan at this point Continue Cipro/Flagyl day 5 (2) Atrial fibrillation Current Visit: Yes Status: Acute Code(s): I48.91 - UNSPECIFIED ATRIAL FIBRILLATION SNOMED Code(s): 53305028 Comment: improved on long acting metoprolol and cardizem (3) COPD (chronic obstructive pulmonary disease) Current Visit: Yes Status: Acute Code(s): J44.9 - CHRONIC OBSTRUCTIVE PULMONARY DISEASE, UNSPECIFIED SNOMED Code(s): 45465351 Comment: no exacerbation (4) Diabetes Current Visit: Yes Status: Acute Code(s): E11.9 - TYPE 2 DIABETES MELLITUS WITHOUT COMPLICATIONS SNOMED Code(s): 85452560 Comment: - Continue Lantus and Lispro SS. (5) Acute on chronic respiratory failure with hypoxemia Current Visit: No Status: Acute Code(s): J96.21 - ACUTE AND CHRONIC RESPIRATORY FAILURE WITH HYPOXIA SNOMED Code(s): 80229572628325617 Comment: Now on home settings of 2.5Lnc Resolved (6) S/P aortic valve replacement with bioprosthetic valve Current Visit: No Status: Chronic Priority: Low Code(s): Z95.4 - PRESENCE OF OTHER HEART-VALVE REPLACEMENT SNOMED Code(s): 0931238927041 Comment: - porcine valve Status and Disposition: Inpatient.
[2017-09-13] MEDS: Mometasone 220 MCG MDI INH SCH (21:25)
[2017-09-13] MEDS: Pregabalin CAP(*) 50 MG PO SCH (22:10)
[2017-09-13] MEDS: traZODone TAB* 100 MG PO SCH (22:10)
[2017-09-14] MEDS: metroNIDAZOLE IV 500 MG/100ML* 500 MG/100 ML BAG IVPB SCH ×3 (04:17→20:02)
[2017-09-14] MEDS: Heparin VIAL(*) 5000 UNITS/ML VIAL (FIVE THOUSAND) SUBCUT SCH ×3 (05:44→21:33)
[2017-09-14] MEDS: Levothyroxine TAB* 100 MCG TAB PO SCH (05:44)
[2017-09-14] MEDS: Metoprolol Succinate XL TAB* 50 MG PO SCH (05:44)
[2017-09-14] MEDS: Aspirin EC TAB* 81 MG TAB.EC PO SCH (07:55)
[2017-09-14] MEDS: Atorvastatin* 80 MG TAB PO SCH (07:55)
[2017-09-14] MEDS: Acetaminophen TAB* 325 MG PO PRN (07:55)
[2017-09-14] MEDS: Ezetimibe TAB* 10 MG PO SCH (07:55)
[2017-09-14] MEDS: Sertraline* 100 MG TAB PO SCH (07:55)
[2017-09-14] MEDS: Diltiazem CD CAP* 240 MG PO SCH (07:55)
[2017-09-14] MEDS: Ciprofloxacin 400MG IVPREMIX(* 400 MG/200 ML BAG IVPB SCH ×2 (08:00→21:33)
[2017-09-14] MEDS: Insulin LISPRO* 1 UNITS UNIT SUBCUT SCH ×4 (08:16→21:33)
[2017-09-14] MEDS: Tiotropium CAP.INH* CAP.INH/18 MCG (USE ORDER SET !) INH SCH (08:26)
[2017-09-14] MEDS ORDERED: Furosemide IV* 10 MG/ML VIAL (40 MG) IV ONE (13:39)
[2017-09-14] MEDS ORDERED: traMADol TAB* 50 MG PO PRN (13:41)
--- NOTE | 2017-09-14 18:19 | PN ---
Subjective Date of Service: 09/14/17 Interval History: No overnight events. Diet advanced yesterday and she is tolerating it well. LLQ abdominal pain feels about the same. No nausea, +normal bowel movements via ostomy, afebrile Family History: Unchanged from Admission Social History: Unchanged from Admission Past Medical History: Unchanged from Admission Objective Active Medications: Acetaminophen (Tylenol Tab*) 650 mg PO Q4H PRN PRN Reason: FEVER/PAIN Last Admin: 09/14/17 07:55 Dose: 650 mg Albuterol (Ventolin Hfa Inhaler*) 2 puff INH Q4H PRN PRN Reason: SOB/WHEEZING Alprazolam (Xanax Tab*) 0.25 mg PO TID PRN PRN Reason: ANXIETY Last Admin: 09/11/17 04:35 Dose: 0.25 mg Aspirin (Aspirin Ec Tab*) 81 mg PO DAILY [facility] Last Admin: 09/14/17 07:55 Dose: 81 mg Atorvastatin Calcium (Lipitor*) 80 mg PO DAILY [facility] Last Admin: 09/14/17 07:55 Dose: 80 mg Dextrose (D50w Syringe 50 Ml*) 12.5 gm IV PUSH .FOR FS < 60 - SS PRN PRN Reason: FS < 60 Diltiazem HCl (Cardizem Cd Cap*) 240 mg PO 0600 [facility] Ezetimibe (Zetia Tab*) 10 mg PO DAILY [facility] Last Admin: 09/14/17 07:55 Dose: 10 mg Heparin Sodium (Porcine) (Heparin Vial(*)) 5,000 units SUBCUT Q8HR [facility] Last Admin: 09/14/17 14:16 Dose: 5,000 units Ciprofloxacin/Dextrose (Cipro 400 Mg Ivpremix(*)) 400 mg in 200 mls @ 200 mls/ hr IVPB Q12H [facility] Last Admin: 09/14/17 08:00 Dose: 200 mls/hr Metronidazole/Sodium Chloride (Flagyl 500 Mg Ivpb*) 500 mg in 100 mls @ 100 mls /hr IVPB Q8H [facility] Last Admin: 09/14/17 12:30 Dose: 100 mls/hr Insulin Glargine (Lantus(*)) 10 units SUBCUT Q24H [facility] Last Admin: 09/13/17 17:48 Dose: 10 units Insulin Human Lispro (Humalog*) 0 units SUBCUT ACHS JL PRN Reason: Protocol Last Admin: 09/14/17 12:30 Dose: 3 units Levothyroxine Sodium (Synthroid Tab*) 200 mcg PO DAILY@0600 [facility] Last Admin: 09/14/17 05:44 Dose: 200 mcg Metoprolol Succinate (Toprol Xl Tab*) 50 mg PO DAILY@0600 [facility] Last Admin: 09/14/17 05:44 Dose: 50 mg Metoprolol Tartrate (Lopressor Iv*) 5 mg IV Q6H PRN PRN Reason: BLOOD PRESSURE Last Admin: 09/13/17 09:03 Dose: 5 mg Mometasone Furoate (Asmanex 220 Mcg Mdi *) 1 puff INH BEDTIME [facility] Last Admin: 09/13/17 21:25 Dose: 1 puff Ondansetron HCl (Zofran Inj*) 4 mg IV Q6H PRN PRN Reason: NAUSEA Last Admin: 09/11/17 15:19 Dose: 4 mg Pregabalin (Lyrica Cap(*)) 50 mg PO BEDTIME [facility] Last Admin: 09/13/17 22:10 Dose: 50 mg Sertraline HCl (Zoloft*) 200 mg PO DAILY [facility] Last Admin: 09/14/17 07:55 Dose: 200 mg Tiotropium [place] (Spiriva Cap.Inh*) 1 cap INH DAILY [facility] Last Admin: 09/14/17 08:26 Dose: 1 cap.inh Tramadol HCl (Ultram*) 50 mg PO Q12H PRN PRN Reason: PAIN Last Admin: 09/14/17 15:56 Dose: 50 mg Trazodone HCl (Desyrel Tab*) 100 mg PO BEDTIME [facility] Last Admin: 09/13/17 22:10 Dose: 100 mg Vital Signs - 8 hr 09/14/17 09/14/17 12:07 15:56 Temperature 97.8 F Pulse Rate 100 Respiratory 20 14 Rate Blood Pressure 97/59 (mmHg) O2 Sat by Pulse 100 Oximetry Oxygen Devices in Use Now: Nasal Cannula Appearance: alert, sitting up in chair, no distress Eyes: No Scleral Icterus Ears/Nose/Mouth/Throat: NL Teeth, Lips, Gums Neck: NL Appearance and Movements; NL JVP Respiratory: Symmetrical Chest Expansion and Respiratory Effort Cardiovascular: - - I cannot see jvp Abdominal: NL Sounds; No Tenderness; No Distention, - - ostomy LLQ with brown liquid stool. tender to deep palpation inferior to the ostomy. no guarding. Skin: - - 3+ lower extremity edema with venous stasis changes Neurological: Alert and Oriented x 3 Result Diagrams: 09/13/17 05:27 09/13/17 05:27 Additional Lab and Data: Lab Results 09/08/17 09/08/17 09/08/17 Range/Units 12:20 12:20 12:20 WBC 12.7 H (3.5-10.8) 10^3/ul RBC 3.61 L (4.0-5.4) 10^6/ul Hgb 9.6 L (12.0-16.0) g/dl Hct 31 L (35-47) % MCV 85 (80-97) fL MCH 27 (27-31) pg MCHC 31 (31-36) g/dl RDW 18 H (10.5-15) % Plt Count 303 (150-450) 10^3/ul MPV 8.3 (7.4-10.4) um3 Neut % (Auto) 79.4 (38-83) % Lymph % (Auto) 11.1 L (25-47) % [place] % (Auto) 8.7 H (0-7) % Eos % (Auto) 0.4 (0-6) % Baso % (Auto) 0.4 (0-2) % Absolute Neuts (auto) 10.1 H (1.5-7.7) 10^3/ul Absolute Lymphs (auto) 1.4 (1.0-4.8) 10^3/ul Absolute Monos (auto) 1.1 H (0-0.8) 10^3/ul Absolute Eos (auto) 0.1 (0-0.6) 10^3/ul Absolute Basos (auto) 0 (0-0.2) 10^3/ul Absolute Nucleated RBC 0 10^3/ul Nucleated RBC % 0.2 ESR Cancelled INR (Anticoag Therapy) 1.35 H (0.77-1.02) APTT 26.2 (26.0-36.3) seconds Sodium 133 L (139-145) mmol/L Potassium TNP Chloride 101 (101-111) mmol/L Carbon Dioxide 25 (22-32) mmol/L Anion Gap 7 (2-11) mmol/L BUN 11 (6-24) mg/dL Creatinine 1.04 H (0.51-0.95) mg/dL Est GFR ( Amer) 68.2 (>60) Est GFR (Non-Af Amer) 53.0 (>60) BUN/Creatinine Ratio 10.6 (8-20) Glucose 103 H (70-100) mg/dL Lactic Acid (0.5-2.0) mmol/L Calcium 8.2 L (8.6-10.3) mg/dL Total Bilirubin 0.60 (0.2-1.0) mg/dL AST TNP ALT 20 (7-52) U/L Alkaline Phosphatase 69 (34-104) U/L Troponin I 0.02 (<0.04) ng/mL C-Reactive Protein 159.34 H (< 5.00) mg/L B-Natriuretic Peptide ( - 100) pg/mL Total Protein 7.0 (6.4-8.9) g/dL Albumin 2.6 L (3.2-5.2) g/dL Globulin 4.4 H (2-4) g/dL Albumin/Globulin Ratio 0.6 L (1-3) Procalcitonin (<0.6) ng/mL Blood Type Antibody Screen 09/08/17 09/08/17 09/08/17 Range/Units 12:20 13:00 13:00 WBC (3.5-10.8) 10^3/ul RBC (4.0-5.4) 10^6/ul Hgb (12.0-16.0) g/dl Hct (35-47) % MCV (80-97) fL MCH (27-31) pg MCHC (31-36) g/dl RDW (10.5-15) % Plt Count (150-450) 10^3/ul MPV (7.4-10.4) um3 Neut % (Auto) (38-83) % Lymph % (Auto) (25-47) % [place] % (Auto) (0-7) % Eos % (Auto) (0-6) % Baso % (Auto) (0-2) % Absolute Neuts (auto) (1.5-7.7) 10^3/ul Absolute Lymphs (auto) (1.0-4.8) 10^3/ul Absolute Monos (auto) (0-0.8) 10^3/ul Absolute Eos (auto) (0-0.6) 10^3/ul Absolute Basos (auto) (0-0.2) 10^3/ul Absolute Nucleated RBC 10^3/ul Nucleated RBC % ESR INR (Anticoag Therapy) (0.77-1.02) APTT (26.0-36.3) seconds Sodium (139-145) mmol/L Potassium Chloride (101-111) mmol/L Carbon Dioxide (22-32) mmol/L Anion Gap (2-11) mmol/L BUN (6-24) mg/dL Creatinine (0.51-0.95) mg/dL Est GFR ( Amer) (>60) Est GFR (Non-Af Amer) (>60) BUN/Creatinine Ratio (8-20) Glucose (70-100) mg/dL Lactic Acid 1.2 (0.5-2.0) mmol/L Calcium (8.6-10.3) mg/dL Total Bilirubin (0.2-1.0) mg/dL AST ALT (7-52) U/L Alkaline Phosphatase (34-104) U/L Troponin I (<0.04) ng/mL C-Reactive Protein (< 5.00) mg/L B-Natriuretic Peptide 752 H ( - 100) pg/mL Total Protein (6.4-8.9) g/dL Albumin (3.2-5.2) g/dL Globulin (2-4) g/dL Albumin/Globulin Ratio (1-3) Procalcitonin 0.1 (<0.6) ng/mL Blood Type Antibody Screen 09/08/17 09/08/17 09/08/17 Range/Units 13:00 15:58 18:16 WBC (3.5-10.8) 10^3/ul RBC (4.0-5.4) 10^6/ul Hgb (12.0-16.0) g/dl Hct (35-47) % MCV (80-97) fL MCH (27-31) pg MCHC (31-36) g/dl RDW (10.5-15) % Plt Count (150-450) 10^3/ul MPV (7.4-10.4) um3 Neut % (Auto) (38-83) % Lymph % (Auto) (25-47) % [place] % (Auto) (0-7) % Eos % (Auto) (0-6) % Baso % (Auto) (0-2) % Absolute Neuts (auto) (1.5-7.7) 10^3/ul Absolute Lymphs (auto) (1.0-4.8) 10^3/ul Absolute Monos (auto) (0-0.8) 10^3/ul Absolute Eos (auto) (0-0.6) 10^3/ul Absolute Basos (auto) (0-0.2) 10^3/ul Absolute Nucleated RBC 10^3/ul Nucleated RBC % ESR 97 H INR (Anticoag Therapy) (0.77-1.02) APTT (26.0-36.3) seconds Sodium (139-145) mmol/L Potassium Chloride (101-111) mmol/L Carbon Dioxide (22-32) mmol/L Anion Gap (2-11) mmol/L BUN (6-24) mg/dL Creatinine (0.51-0.95) mg/dL Est GFR ( Amer) (>60) Est GFR (Non-Af Amer) (>60) BUN/Creatinine Ratio (8-20) Glucose (70-100) mg/dL Lactic Acid 0.8 (0.5-2.0) mmol/L Calcium (8.6-10.3) mg/dL Total Bilirubin (0.2-1.0) mg/dL AST ALT (7-52) U/L Alkaline Phosphatase (34-104) U/L Troponin I (<0.04) ng/mL C-Reactive Protein (< 5.00) mg/L B-Natriuretic Peptide ( - 100) pg/mL Total Protein (6.4-8.9) g/dL Albumin (3.2-5.2) g/dL Globulin (2-4) g/dL Albumin/Globulin Ratio (1-3) Procalcitonin (<0.6) ng/mL Blood Type A Negative Antibody Screen Negative Assess/Plan/Problems-Billing Assessment: Mrs. Ziegler is a 66yo F with PMH of obesity, Afib, COPD on home O2 2 liters/ min, PVF, GERD, diastolic CHF with EF 55%, chronic pain, HTN, DVT, PE, RYAN, diabetes, bowel obstruction requiring colostomy, CAD s/p CABG, s/p AVR (porcine) , HLD, hypothyroidism, who presented to ED with c/o weakness and malaise, found to have a large LLQ mass. - Patient Problems (1) Abdominal mass, left lower quadrant Current Visit: Yes Status: Acute Code(s): R19.04 - LEFT LOWER QUADRANT ABDOMINAL SWELLING, MASS AND LUMP SNOMED Code(s): 320449679 Comment: CT showed a large mass on the LLQ with prominent surrounding interstitial stranding which may represent a phlegmonous process. No evidence of obstuction Dr. Jackson recommending antibiotics, no OR plan at this point Continue Cipro/Flagyl day 6 Will consult ID for duration of abx Will ultimately need picc (2) Atrial fibrillation Current Visit: Yes Status: Acute Code(s): I48.91 - UNSPECIFIED ATRIAL FIBRILLATION SNOMED Code(s): 07723026 Comment: improved on long acting metoprolol and cardizem it does not appear she has been on anticoagulation, but would warrant it given her [id number] I will discuss this further with her (3) COPD (chronic obstructive pulmonary disease) Current Visit: Yes Status: Acute Code(s): J44.9 - CHRONIC OBSTRUCTIVE PULMONARY DISEASE, UNSPECIFIED SNOMED Code(s): 15937321 Comment: no exacerbation (4) Diabetes Current Visit: Yes Status: Acute Code(s): E11.9 - TYPE 2 DIABETES MELLITUS WITHOUT COMPLICATIONS SNOMED Code(s): 44185351 Comment: - Continue Lantus and Lispro SS. (5) Acute on chronic respiratory failure with hypoxemia Current Visit: No Status: Acute Code(s): J96.21 - ACUTE AND CHRONIC RESPIRATORY FAILURE WITH HYPOXIA SNOMED Code(s): 98493744771239831 Comment: Now on home settings of 2.5Lnc Resolved (6) S/P aortic valve replacement with bioprosthetic valve Current Visit: No Status: Chronic Priority: Low Code(s): Z95.4 - PRESENCE OF OTHER HEART-VALVE REPLACEMENT SNOMED Code(s): 7034013862971 Comment: - porcine valve Status and Disposition: Inpatient.
[2017-09-14] MEDS: Insulin GLARGINE(*) 1 UNITS UNIT SUBCUT SCH (18:20)
[2017-09-14] MEDS: Metoprolol Tartrate IV* 1 MG/ML 5 ML VIAL IV PRN (19:49)
[2017-09-14] MEDS: Pregabalin CAP(*) 50 MG PO SCH (21:33)
[2017-09-14] MEDS: Mometasone 220 MCG MDI INH SCH (21:33)
[2017-09-14] MEDS: traZODone TAB* 100 MG PO SCH (21:33)
[2017-09-15] MEDS: metroNIDAZOLE IV 500 MG/100ML* 500 MG/100 ML BAG IVPB SCH ×3 (03:41→20:16)
[2017-09-15] MEDS: Levothyroxine TAB* 100 MCG TAB PO SCH (06:04)
[2017-09-15] MEDS: Metoprolol Succinate XL TAB* 50 MG PO SCH (06:04)
[2017-09-15] MEDS: Heparin VIAL(*) 5000 UNITS/ML VIAL (FIVE THOUSAND) SUBCUT SCH ×3 (06:04→21:41)
[2017-09-15] MEDS: Diltiazem CD CAP* 240 MG PO SCH (06:08)
[2017-09-15 06:39] LABS: ABS Basophils 0.1 10^3/ul (0-0.2); ABS Eosinophils 0.2 10^3/ul (0-0.6); ABS Lymphocytes 1.6 10^3/ul (1.0-4.8); ABS Monocytes 1.4 10^3/ul (0-0.8); ABS Neutrophils 8.6 10^3/ul (1.5-7.7); ABS Nucleated RBC 0 10^3/ul; Eosinophil % 1.8 % (0-6); Hematocrit 28 % (35-47); Hemoglobin 9.1 g/dl (12.0-16.0); Lymphocyte % 13.7 % (25-47); Mean Corpuscular HGB Conc 33 g/dl (31-36); Mean Corpuscular Hemoglobin 27 pg (27-31); Mean Corpuscular Volume 83 fL (80-97); Mean Platelet Volume 8.2 um3 (7.4-10.4); Nucleated Red Blood Cells % 0; Platelet Count 266 10^3/ul (150-450); Red Blood Count 3.35 10^6/ul (4.0-5.4); Red Cell Distribution Width 18 % (10.5-15); White Blood Count 11.9 10^3/ul (3.5-10.8)
[2017-09-15 06:56] LABS: EGFR Non-African American 69.7 (>60)
[2017-09-15] MEDS: Tiotropium CAP.INH* CAP.INH/18 MCG (USE ORDER SET !) INH SCH (08:35)
[2017-09-15] MEDS: Atorvastatin* 80 MG TAB PO SCH (09:59)
[2017-09-15] MEDS: Aspirin EC TAB* 81 MG TAB.EC PO SCH (09:59)
[2017-09-15] MEDS: Insulin LISPRO* 1 UNITS UNIT SUBCUT SCH ×4 (09:59→22:00)
[2017-09-15] MEDS: Ezetimibe TAB* 10 MG PO SCH (09:59)
[2017-09-15] MEDS: Sertraline* 100 MG TAB PO SCH (09:59)
[2017-09-15] MEDS: cefTRIAXone(*) 2 GM in NS 0.9% 100 ML* 100 ML IVPB SCH (10:00)
[2017-09-15] MEDS: Ciprofloxacin 400MG IVPREMIX(* 400 MG/200 ML BAG IVPB SCH (10:12)
--- NOTE | 2017-09-15 11:16 | CONS ---
CONSULTATION REPORT: DATE OF CONSULT: 09/15/17 REQUESTING PHYSICIAN: Dr. Ontiveros. CONSULTING SERVICE: Infectious Disease. REASON FOR CONSULT: Left lower quadrant pain and CT abnormality. IMPRESSION: 1. Large left lower quadrant mass seen on CT scan, presenting of about 3 weeks of left lower quadran t pain, fevers, chills, and anorexia. She had a CRP of 160 on admission on 09/08/17. CT report desc ribes inflammatory mass in the left lower quadrant similar to previous exam on 09/12/17. The differe ntial includes phlegmon or early abscess or neoplasm. This in the setting of a colostomy for large b owel obstruction in 2014. She had a recent colonoscopy through the ostomy for bleeding. Differential diagnosis includes that this is a phlegmon/abscess due to diverticular disease, which was seen on CT scan that I reviewed from 2012. This could be due to her recent procedure; however, she felt he r systemic symptoms and left side of pain preceded the colonoscopy. It seems a little bit unusual to have this developed from the distal rectosigmoid aspect of the colon, which is not hooked up, and do es appear to be more adjacent to the proximal sigmoid. As noted in the CT, malignancy is a considera tion. 2. Morbid obesity with large ventral incisional hernia. 3. History of large bowel obstruction, status post colostomy which remains. 4. Atrial fibrillation with rapid ventricular response. RECOMMENDATION: Treat this as an abscess. Ceftriaxone 2 g a day, Flagyl 500 mg by mouth 3 times a d ay for 21 more days (she has had 7 days of antibiotic already) and we will plan to repeat a CAT scan in about 3 weeks to ensure resolution. If not improving, then we would have to consider IR biopsy, gage logan I discussed with her today. She is in agreement with attempting antibiotics first to try to junior id that procedure. She understands that if it does not end up being infection, this may lead to her receiving a couple of weeks of unnecessary antibiotics. HISTORY OF PRESENT ILLNESS: This is a 66-year-old woman with morbid obesity and left-sided colostomy for obstruction, admitted with tachycardia and relative hypotension from her doctor's office. She w as recently at [facility] [place] with bleeding from her ostomy, which was felt to be related to Coumadin use for at rial fibrillation. She had an outpatient colonoscopy at [place] with cauterization of an AVM. She fo llowed with Dr. Simons, who noted her to be tachycardic and hypotensive and directed her to the [facility] on 09/08/17. That day, she had a C-reactive protein of 160. I added a CRP to her blood test this morning; it is down to 50. She has been on Cipro and Flagyl since then. CT on admission showed results as above; it was repeated on 09/12/17, it is unchanged. She has had no fevers while she has been here. She notes left lower quadrant pain for about 2 to 3 months, intermittent, last 10 to 15 minutes, improves with Tylenol, not positional, comes day and night. Her appetite had been decreased during that time. She noted chills, sweats, and low-grade fevers at home. She has been afebrile he re, thinks the left-sided pain is little bit better, appetite picked up. PAST MEDICAL HISTORY: 1. Morbid obesity. 2. History of large bowel obstruction, status post colostomy, 2014. 3. Incisional ventral hernia. 4. Chronic respiratory failure, on 2 L of supplemental oxygen at home. 5. Peripheral vascular disease. 6. Gastroesophageal reflux disease. 7. Congestive heart failure. 8. Chronic pain. 9. Hypertension. 10. DVT and PE. 11. Obstructive sleep apnea. 12. Type 2 diabetes. 13. Coronary artery disease and history of CO, status post CABG. 14. Hyperlipidemia. 15. Hypothyroidism. 16. Status post porcine aortic valve replacement. 17. Status post cholecystectomy. 18. Status post appendectomy. 19. History of hernia repair (umbilical). MEDICATIONS: 1. Tylenol. 2. Albuterol. 3. Xanax as needed. 4. Aspirin. 5. Lipitor. 6. Diltiazem. 7. Zetia. 8. Lasix. 9. Heparin subcutaneous injection. 10. Insulin glargine. 11. Levothyroxine. 12. Metoprolol. 13. Flagyl 500 mg every 8 hours. 14. Ciprofloxacin 400 mg every 12 hours. 15. Lyrica. 16. Sertraline. 17. Spiriva. 18. Tramadol. 19. Trazodone. ALLERGIES: CELEBREX and IV DYE. FAMILY HISTORY: No recurrent infections or tuberculosis. SOCIAL HISTORY: She lives in [place] with her son. No travel. No sick contacts. No injection dr trent. REVIEW OF SYSTEMS: A 14-point review of systems was all negative except as noted above. PHYSICAL EXAM: Vital Signs: Temperature is 36, heart rate 70, respiratory rate 16, blood pressure 1 00/50, oxygen saturation 98% on 2 L. In general, she is awake, not in distress. Neurologic: She is oriented x3. Follows all commands. HEENT: There is no conjunctival hemorrhage. Oropharynx without lesions. Neck is supple without mass. Lymph Nodes: There is no inguinal, axillary, or epitrochlea r lymphadenopathy. Heart is regular and tachycardic without murmurs. Lungs are clear to auscultatio n bilaterally. Abdomen: Soft, obese. There is a large ventral hernia that includes the ostomy that has liquid brown stool and air in it. The ostomy itself is pink. There is no tenderness in the melani ia or around the ostomy. There is left lower quadrant tenderness to palpation. There is no rebound. There are bowel sounds present. Skin: There is no rash or splinter hemorrhages. Musculoskeletal: There is no spine tenderness to palpation. LABORATORY DATA: Creatinine 0.8. CRP 51. White blood cell count 11, hemoglobin 9, platelets 266. Influenza PCR negative. Urinalysis shows white cells and squamous cells. Please see impressions and recommendations outlined above, which I have discussed with Dr. Ontiveros. Sky jhaveri for asking me to see Ms. Ziegler in consultation. TIME SPENT: Seventy minutes floor time, greater than 50% [id number] with the patient discussing CT results and formulating antibiotic and followup imaging plan. [id number]/[facility] #: [id number]
[2017-09-15] MEDS ORDERED: Magnesium Oxide TAB* 400 MG PO ONE (12:00)
[2017-09-15] MEDS ORDERED: Furosemide IV* 10 MG/ML 10 ML VIAL (100 MG) IV ONE (12:01)
--- NOTE | 2017-09-15 14:02 | PN ---
Subjective Date of Service: 09/15/17 Interval History: No overnight events. Feels okay today, not much different. Still complains of b/l leg swelling, no pain. Pain in LLQ is unchanged. No nausea, tolerating an advanced diet. Afebrile. Family History: Unchanged from Admission Social History: Unchanged from Admission Past Medical History: Unchanged from Admission Objective Active Medications: Acetaminophen (Tylenol Tab*) 650 mg PO Q4H PRN PRN Reason: FEVER/PAIN Last Admin: 09/14/17 07:55 Dose: 650 mg Albuterol (Ventolin Hfa Inhaler*) 2 puff INH Q4H PRN PRN Reason: SOB/WHEEZING Alprazolam (Xanax Tab*) 0.25 mg PO TID PRN PRN Reason: ANXIETY Last Admin: 09/11/17 04:35 Dose: 0.25 mg Aspirin (Aspirin Ec Tab*) 81 mg PO DAILY [facility] Last Admin: 09/15/17 09:59 Dose: 81 mg Atorvastatin Calcium (Lipitor*) 80 mg PO DAILY [facility] Last Admin: 09/15/17 09:59 Dose: 80 mg Dextrose (D50w Syringe 50 Ml*) 12.5 gm IV PUSH .FOR FS < 60 - SS PRN PRN Reason: FS < 60 Diltiazem HCl (Cardizem Cd Cap*) 240 mg PO 0600 [facility] Last Admin: 09/15/17 06:08 Dose: 240 mg Ezetimibe (Zetia Tab*) 10 mg PO DAILY [facility] Last Admin: 09/15/17 09:59 Dose: 10 mg Furosemide (Lasix Iv*) 60 mg IV BID [facility] Heparin Sodium (Porcine) (Heparin Vial(*)) 5,000 units SUBCUT Q8HR [facility] Last Admin: 09/15/17 13:44 Dose: 5,000 units Metronidazole/Sodium Chloride (Flagyl 500 Mg Ivpb*) 500 mg in 100 mls @ 100 mls /hr IVPB Q8H [facility] Last Admin: 09/15/17 12:59 Dose: 100 mls/hr Ceftriaxone Sodium 2 gm/ (Sodium Chloride) 100 mls @ 200 mls/hr IVPB Q24H [facility] Last Admin: 09/15/17 10:00 Dose: 200 mls/hr Insulin Glargine (Lantus(*)) 10 units SUBCUT Q24H [facility] Last Admin: 09/14/17 18:20 Dose: 10 units Insulin Human Lispro (Humalog*) 0 units SUBCUT ACHS JL PRN Reason: Protocol Last Admin: 09/15/17 12:53 Dose: 6 units Levothyroxine Sodium (Synthroid Tab*) 200 mcg PO DAILY@0600 [facility] Last Admin: 09/15/17 06:04 Dose: 200 mcg Metoprolol Succinate (Toprol Xl Tab*) 50 mg PO DAILY@0600 [facility] Last Admin: 09/15/17 06:04 Dose: 50 mg Metoprolol Tartrate (Lopressor Iv*) 5 mg IV Q6H PRN PRN Reason: BLOOD PRESSURE Last Admin: 09/14/17 19:49 Dose: 5 mg Mometasone Furoate (Asmanex 220 Mcg Mdi *) 1 puff INH BEDTIME [facility] Last Admin: 09/14/17 21:33 Dose: 1 puff Ondansetron HCl (Zofran Inj*) 4 mg IV Q6H PRN PRN Reason: NAUSEA Last Admin: 09/11/17 15:19 Dose: 4 mg Pregabalin (Lyrica Cap(*)) 50 mg PO BEDTIME [facility] Last Admin: 09/14/17 21:33 Dose: 50 mg Sertraline HCl (Zoloft*) 200 mg PO DAILY [facility] Last Admin: 09/15/17 09:59 Dose: 200 mg Tiotropium Perry (Spiriva Cap.Inh*) 1 cap INH DAILY [facility] Last Admin: 09/15/17 08:35 Dose: 1 cap.inh Tramadol HCl (Ultram*) 50 mg PO Q12H PRN PRN Reason: PAIN Last Admin: 09/14/17 15:56 Dose: 50 mg Trazodone HCl (Desyrel Tab*) 100 mg PO BEDTIME [facility] Last Admin: 09/14/17 21:33 Dose: 100 mg Vital Signs - 8 hr 09/15/17 09/15/17 09/15/17 06:11 07:50 08:00 Temperature 98.4 F Pulse Rate 110 145 Respiratory 16 18 Rate Blood Pressure 100/63 134/82 (mmHg) O2 Sat by Pulse 100 Oximetry 09/15/17 09/15/17 08:38 11:24 Temperature 97.3 F Pulse Rate 81 92 Respiratory 18 16 Rate Blood Pressure 101/67 (mmHg) O2 Sat by Pulse 95 100 Oximetry Oxygen Devices in Use Now: None Appearance: alert, sitting up in the chair, nontoxic Eyes: No Scleral Icterus Ears/Nose/Mouth/Throat: NL Teeth, Lips, Gums Neck: NL Appearance and Movements; NL JVP Cardiovascular: No Edema, - - 3+ le edema, R>L . irregularly rhythm Abdominal: - - ostomy LLQ, pain to deep palpation inferior to ostomy Lymphatic: No Cervical Adenopathy Skin: No Rash or Ulcers Neurological: Alert and Oriented x 3 Result Diagrams: 09/15/17 06:25 09/15/17 06:26 Additional Lab and Data: Lab Results 09/08/17 09/08/17 09/08/17 Range/Units 12:20 12:20 12:20 WBC 12.7 H (3.5-10.8) 10^3/ul RBC 3.61 L (4.0-5.4) 10^6/ul Hgb 9.6 L (12.0-16.0) g/dl Hct 31 L (35-47) % MCV 85 (80-97) fL MCH 27 (27-31) pg MCHC 31 (31-36) g/dl RDW 18 H (10.5-15) % Plt Count 303 (150-450) 10^3/ul MPV 8.3 (7.4-10.4) um3 Neut % (Auto) 79.4 (38-83) % Lymph % (Auto) 11.1 L (25-47) % [place] % (Auto) 8.7 H (0-7) % Eos % (Auto) 0.4 (0-6) % Baso % (Auto) 0.4 (0-2) % Absolute Neuts (auto) 10.1 H (1.5-7.7) 10^3/ul Absolute Lymphs (auto) 1.4 (1.0-4.8) 10^3/ul Absolute Monos (auto) 1.1 H (0-0.8) 10^3/ul Absolute Eos (auto) 0.1 (0-0.6) 10^3/ul Absolute Basos (auto) 0 (0-0.2) 10^3/ul Absolute Nucleated RBC 0 10^3/ul Nucleated RBC % 0.2 ESR Cancelled INR (Anticoag Therapy) 1.35 H (0.77-1.02) APTT 26.2 (26.0-36.3) seconds Sodium 133 L (139-145) mmol/L Potassium TNP Chloride 101 (101-111) mmol/L Carbon Dioxide 25 (22-32) mmol/L Anion Gap 7 (2-11) mmol/L BUN 11 (6-24) mg/dL Creatinine 1.04 H (0.51-0.95) mg/dL Est GFR ( Amer) 68.2 (>60) Est GFR (Non-Af Amer) 53.0 (>60) BUN/Creatinine Ratio 10.6 (8-20) Glucose 103 H (70-100) mg/dL Lactic Acid (0.5-2.0) mmol/L Calcium 8.2 L (8.6-10.3) mg/dL Total Bilirubin 0.60 (0.2-1.0) mg/dL AST TNP ALT 20 (7-52) U/L Alkaline Phosphatase 69 (34-104) U/L Troponin I 0.02 (<0.04) ng/mL C-Reactive Protein 159.34 H (< 5.00) mg/L B-Natriuretic Peptide ( - 100) pg/mL Total Protein 7.0 (6.4-8.9) g/dL Albumin 2.6 L (3.2-5.2) g/dL Globulin 4.4 H (2-4) g/dL Albumin/Globulin Ratio 0.6 L (1-3) Procalcitonin (<0.6) ng/mL Blood Type Antibody Screen 09/08/17 09/08/17 09/08/17 Range/Units 12:20 13:00 13:00 WBC (3.5-10.8) 10^3/ul RBC (4.0-5.4) 10^6/ul Hgb (12.0-16.0) g/dl Hct (35-47) % MCV (80-97) fL MCH (27-31) pg MCHC (31-36) g/dl RDW (10.5-15) % Plt Count (150-450) 10^3/ul MPV (7.4-10.4) um3 Neut % (Auto) (38-83) % Lymph % (Auto) (25-47) % [place] % (Auto) (0-7) % Eos % (Auto) (0-6) % Baso % (Auto) (0-2) % Absolute Neuts (auto) (1.5-7.7) 10^3/ul Absolute Lymphs (auto) (1.0-4.8) 10^3/ul Absolute Monos (auto) (0-0.8) 10^3/ul Absolute Eos (auto) (0-0.6) 10^3/ul Absolute Basos (auto) (0-0.2) 10^3/ul Absolute Nucleated RBC 10^3/ul Nucleated RBC % ESR INR (Anticoag Therapy) (0.77-1.02) APTT (26.0-36.3) seconds Sodium (139-145) mmol/L Potassium Chloride (101-111) mmol/L Carbon Dioxide (22-32) mmol/L Anion Gap (2-11) mmol/L BUN (6-24) mg/dL Creatinine (0.51-0.95) mg/dL Est GFR ( Amer) (>60) Est GFR (Non-Af Amer) (>60) BUN/Creatinine Ratio (8-20) Glucose (70-100) mg/dL Lactic Acid 1.2 (0.5-2.0) mmol/L Calcium (8.6-10.3) mg/dL Total Bilirubin (0.2-1.0) mg/dL AST ALT (7-52) U/L Alkaline Phosphatase (34-104) U/L Troponin I (<0.04) ng/mL C-Reactive Protein (< 5.00) mg/L B-Natriuretic Peptide 752 H ( - 100) pg/mL Total Protein (6.4-8.9) g/dL Albumin (3.2-5.2) g/dL Globulin (2-4) g/dL Albumin/Globulin Ratio (1-3) Procalcitonin 0.1 (<0.6) ng/mL Blood Type Antibody Screen 09/08/17 09/08/17 09/08/17 Range/Units 13:00 15:58 18:16 WBC (3.5-10.8) 10^3/ul RBC (4.0-5.4) 10^6/ul Hgb (12.0-16.0) g/dl Hct (35-47) % MCV (80-97) fL MCH (27-31) pg MCHC (31-36) g/dl RDW (10.5-15) % Plt Count (150-450) 10^3/ul MPV (7.4-10.4) um3 Neut % (Auto) (38-83) % Lymph % (Auto) (25-47) % [place] % (Auto) (0-7) % Eos % (Auto) (0-6) % Baso % (Auto) (0-2) % Absolute Neuts (auto) (1.5-7.7) 10^3/ul Absolute Lymphs (auto) (1.0-4.8) 10^3/ul Absolute Monos (auto) (0-0.8) 10^3/ul Absolute Eos (auto) (0-0.6) 10^3/ul Absolute Basos (auto) (0-0.2) 10^3/ul Absolute Nucleated RBC 10^3/ul Nucleated RBC % ESR 97 H INR (Anticoag Therapy) (0.77-1.02) APTT (26.0-36.3) seconds Sodium (139-145) mmol/L Potassium Chloride (101-111) mmol/L Carbon Dioxide (22-32) mmol/L Anion Gap (2-11) mmol/L BUN (6-24) mg/dL Creatinine (0.51-0.95) mg/dL Est GFR ( Amer) (>60) Est GFR (Non-Af Amer) (>60) BUN/Creatinine Ratio (8-20) Glucose (70-100) mg/dL Lactic Acid 0.8 (0.5-2.0) mmol/L Calcium (8.6-10.3) mg/dL Total Bilirubin (0.2-1.0) mg/dL AST ALT (7-52) U/L Alkaline Phosphatase (34-104) U/L Troponin I (<0.04) ng/mL C-Reactive Protein (< 5.00) mg/L B-Natriuretic Peptide ( - 100) pg/mL Total Protein (6.4-8.9) g/dL Albumin (3.2-5.2) g/dL Globulin (2-4) g/dL Albumin/Globulin Ratio (1-3) Procalcitonin (<0.6) ng/mL Blood Type A Negative Antibody Screen Negative Assess/Plan/Problems-Billing Assessment: Mrs. Ziegler is a 66yo F with PMH of obesity, Afib, COPD on home O2 2 liters/ min, PVF, GERD, diastolic CHF with EF 55%, chronic pain, HTN, DVT, PE, RYAN, diabetes, bowel obstruction requiring colostomy, CAD s/p CABG, s/p AVR (porcine) , HLD, hypothyroidism, who presented to ED with c/o weakness and malaise, found to have a large LLQ mass. - Patient Problems (1) Abdominal mass, left lower quadrant Current Visit: Yes Status: Acute Code(s): R19.04 - LEFT LOWER QUADRANT ABDOMINAL SWELLING, MASS AND LUMP SNOMED Code(s): 889667965 Comment: CT showed a large mass on the LLQ with prominent surrounding interstitial stranding which may represent a phlegmonous process. No evidence of obstuction Dr. Jackson recommending antibiotics, no OR plan at this point Continue Cipro/Flagyl day 7 Will consult ID for duration of abx Picc line (2) Atrial fibrillation Current Visit: Yes Status: Acute Code(s): I48.91 - UNSPECIFIED ATRIAL FIBRILLATION SNOMED Code(s): 96364182 Comment: improved on long acting metoprolol and cardizem resume warfarin today (3) COPD (chronic obstructive pulmonary disease) Current Visit: Yes Status: Acute Code(s): J44.9 - CHRONIC OBSTRUCTIVE PULMONARY DISEASE, UNSPECIFIED SNOMED Code(s): 68377988 Comment: no exacerbation (4) Diabetes Current Visit: Yes Status: Acute Code(s): E11.9 - TYPE 2 DIABETES MELLITUS WITHOUT COMPLICATIONS SNOMED Code(s): 77390515 Comment: - Continue Lantus and Lispro SS. (5) Acute on chronic respiratory failure with hypoxemia Current Visit: No Status: Acute Code(s): J96.21 - ACUTE AND CHRONIC RESPIRATORY FAILURE WITH HYPOXIA SNOMED Code(s): 67505356261739298 Comment: Now on home settings of 2.5Lnc Resolved (6) S/P aortic valve replacement with bioprosthetic valve Current Visit: No Status: Chronic Priority: Low Code(s): Z95.4 - PRESENCE OF OTHER HEART-VALVE REPLACEMENT SNOMED Code(s): 5126414405320 Comment: porcine valve noted Status and Disposition: Inpatient.
[2017-09-15] MEDS: Insulin GLARGINE(*) 1 UNITS UNIT SUBCUT SCH (18:12)
[2017-09-15] MEDS: Mometasone 220 MCG MDI INH SCH (20:33)
[2017-09-15] MEDS ORDERED: Furosemide IV* 10 MG/ML 10 ML VIAL (100 MG) IV SCH (21:00)
[2017-09-15] MEDS: traZODone TAB* 100 MG PO SCH (21:41)
[2017-09-15] MEDS: Pregabalin CAP(*) 50 MG PO SCH (21:41)
[2017-09-16] MEDS: metroNIDAZOLE IV 500 MG/100ML* 500 MG/100 ML BAG IVPB SCH ×3 (04:05→19:57)
[2017-09-16] MEDS: Metoprolol Succinate XL TAB* 50 MG PO SCH (06:06)
[2017-09-16] MEDS: Levothyroxine TAB* 100 MCG TAB PO SCH (06:06)
[2017-09-16] MEDS: Heparin VIAL(*) 5000 UNITS/ML VIAL (FIVE THOUSAND) SUBCUT SCH ×3 (06:06→22:07)
[2017-09-16] MEDS: Diltiazem CD CAP* 240 MG PO SCH (06:06)
[2017-09-16] MEDS ORDERED: Furosemide IV* 10 MG/ML 10 ML VIAL (100 MG) IV SCH (08:00)
[2017-09-16] MEDS: Sertraline* 100 MG TAB PO SCH (08:08)
[2017-09-16] MEDS: Insulin LISPRO* 1 UNITS UNIT SUBCUT SCH ×4 (08:08→20:53)
[2017-09-16] MEDS: Aspirin EC TAB* 81 MG TAB.EC PO SCH (08:08)
[2017-09-16] MEDS: Atorvastatin* 80 MG TAB PO SCH (08:08)
[2017-09-16] MEDS: Ezetimibe TAB* 10 MG PO SCH (08:12)
[2017-09-16] MEDS ORDERED: NS 0.9% 500 ML* 500 ML IV ONE (08:56)
[2017-09-16] MEDS ORDERED: Digoxin IV* 0.5 MG/2 ML AMP (0.25 MG/ML) IV SLOW PU ONE (08:56)
[2017-09-16] MEDS: Tiotropium CAP.INH* CAP.INH/18 MCG (USE ORDER SET !) INH SCH (09:04)
[2017-09-16 09:35] LABS: ABS Basophils 0.1 10^3/ul (0-0.2); ABS Eosinophils 0.2 10^3/ul (0-0.6); ABS Lymphocytes 1.8 10^3/ul (1.0-4.8); ABS Monocytes 1.2 10^3/ul (0-0.8); ABS Neutrophils 10.4 10^3/ul (1.5-7.7); ABS Nucleated RBC 0 10^3/ul; Eosinophil % 1.8 % (0-6); Hematocrit 30 % (35-47); Hemoglobin 9.5 g/dl (12.0-16.0); Mean Corpuscular HGB Conc 31 g/dl (31-36); Mean Corpuscular Hemoglobin 26 pg (27-31); Mean Corpuscular Volume 83 fL (80-97); Mean Platelet Volume 8.5 um3 (7.4-10.4); Nucleated Red Blood Cells % 0; Platelet Count 288 10^3/ul (150-450); Red Blood Count 3.64 10^6/ul (4.0-5.4); Red Cell Distribution Width 18 % (10.5-15); White Blood Count 13.7 10^3/ul (3.5-10.8)
--- NOTE | 2017-09-16 09:51 | PN ---
Progress Note - Progress Note Date of Service: 09/16/17 SOAP: Subjective: CC: abd pain HPI: 66 year old woman with colostomy and left flank pain, malaise, chills, anorexia; CT showed inflammatory mass in abdomen adjacent to bowel. Has been on antibiotics a week, no fever; appetite up and down. Left flank pain comes and goes. Objective: Vital Signs Temp 36.7 C 09/16/17 07:15 Pulse 157 09/16/17 09:17 Resp 20 09/16/17 08:00 BP 80/57 09/16/17 07:15 Pulse Ox 96 09/16/17 07:15 Intake & Output 09/15/17 09/16/17 09/16/17 18:59 06:59 18:59 Intake Total 960 950 Output Total 1600 Balance 960 -650 Weight 249 lb 1.6 oz Intake: IV Fluids 30 ABX - FLAGYL 30 IVPB 200 ABX - FLAGYL 200 Oral 960 720 Output: Urine 1600 Gen:awake, no distress HEENT:PERRL, no thrush Heart:RRR no murmur Lungs:CTA BL Abd:+BS NTND soft Skin: no thrush Laboratory Results - last 24 hr 09/15/17 09/15/17 09/15/17 11:27 16:36 21:45 WBC RBC Hgb Hct MCV MCH MCHC RDW Plt Count MPV Neut % (Auto) Lymph % (Auto) [place] % (Auto) Eos % (Auto) Baso % (Auto) Absolute Neuts (auto) Absolute Lymphs (auto) Absolute Monos (auto) Absolute Eos (auto) Absolute Basos (auto) Absolute Nucleated RBC Nucleated RBC % POC Glucose (mg/dL) 211 H 192 H 153 H 09/16/17 09/16/17 08:02 08:59 WBC 13.7 H RBC 3.64 L Hgb 9.5 L Hct 30 L MCV 83 MCH 26 L MCHC 31 RDW 18 H Plt Count 288 MPV 8.5 Neut % (Auto) 75.6 Lymph % (Auto) 13.0 L [place] % (Auto) 9.1 H Eos % (Auto) 1.8 Baso % (Auto) 0.5 Absolute Neuts (auto) 10.4 H Absolute Lymphs (auto) 1.8 Absolute Monos (auto) 1.2 H Absolute Eos (auto) 0.2 Absolute Basos (auto) 0.1 Absolute Nucleated RBC 0 Nucleated RBC % 0 POC Glucose (mg/dL) 121 H Assessment: 1. LLQ mass likely abscess due to diverticular disease; CRP elevated and improving on antibiotics 2. mild left hydronephrosis on CT 3. morbid obesity 4. COPD 5. CAD s/p CAB Plan: 1. continue ceftriaxone 2gm IV daily/flagyl 500 mg IV Q8hrs; CBC, CMP, CRP weekly and follow up CT scan 3 weeks as long as otherwise improving 2. urology consultation ?left ureteral stent
[2017-09-16 09:56] LABS: EGFR Non-African American 65.1 (>60)
[2017-09-16] MEDS: cefTRIAXone(*) 2 GM in NS 0.9% 100 ML* 100 ML IVPB SCH (10:00)
[2017-09-16] MEDS ORDERED: Potassium Chloride LIQUID* 20 MEQ PACKET PO ONE (10:06)
[2017-09-16] MEDS ORDERED: Magnesium Sulfate 2 GM IV* 2 GM/50 ML BAG IVPB ONE (10:06)
[2017-09-16] MEDS: Digoxin IV* 0.5 MG/2 ML AMP (0.25 MG/ML) IV SLOW PU SCH ×2 (11:03→14:19)
--- NOTE | 2017-09-16 14:18 | PN ---
Subjective Date of Service: 09/16/17 Interval History: Hypotensive early this morning, so her cardizem was held. Then she went in to afib with RVR. She feels "lousy." Afebrile, no bleeding, pain is unchanged. RVR has not been responsive to digoxin so far. Family History: Unchanged from Admission Social History: Unchanged from Admission Past Medical History: Unchanged from Admission Objective Active Medications: Acetaminophen (Tylenol Tab*) 650 mg PO Q4H PRN PRN Reason: FEVER/PAIN Last Admin: 09/14/17 07:55 Dose: 650 mg Albuterol (Ventolin Hfa Inhaler*) 2 puff INH Q4H PRN PRN Reason: SOB/WHEEZING Aspirin (Aspirin Ec Tab*) 81 mg PO DAILY [facility] Last Admin: 09/16/17 08:08 Dose: 81 mg Atorvastatin Calcium (Lipitor*) 80 mg PO DAILY [facility] Last Admin: 09/16/17 08:08 Dose: 80 mg Dextrose (D50w Syringe 50 Ml*) 12.5 gm IV PUSH .FOR FS < 60 - SS PRN PRN Reason: FS < 60 Diltiazem HCl (Cardizem Cd Cap*) 240 mg PO 0600 [facility] Last Admin: 09/16/17 06:06 Dose: Not Given Ezetimibe (Zetia Tab*) 10 mg PO DAILY [facility] Last Admin: 09/16/17 08:12 Dose: 10 mg Heparin Sodium (Porcine) (Heparin Vial(*)) 5,000 units SUBCUT Q8HR [facility] Last Admin: 09/16/17 06:06 Dose: 5,000 units Metronidazole/Sodium Chloride (Flagyl 500 Mg Ivpb*) 500 mg in 100 mls @ 100 mls /hr IVPB Q8H [facility] Last Admin: 09/16/17 12:17 Dose: 100 mls/hr Ceftriaxone Sodium 2 gm/ (Sodium Chloride) 100 mls @ 200 mls/hr IVPB Q24H [facility] Last Admin: 09/16/17 10:00 Dose: 200 mls/hr Insulin Glargine (Lantus(*)) 10 units SUBCUT Q24H [facility] Last Admin: 09/15/17 18:12 Dose: 10 units Insulin Human Lispro (Humalog*) 0 units SUBCUT ACHS [facility] PRN Reason: Protocol Last Admin: 09/16/17 12:17 Dose: 3 units Levothyroxine Sodium (Synthroid Tab*) 200 mcg PO DAILY@0600 [facility] Last Admin: 09/16/17 06:06 Dose: 200 mcg Metoprolol Succinate (Toprol Xl Tab*) 50 mg PO DAILY@0600 [facility] Last Admin: 09/16/17 06:06 Dose: Not Given Metoprolol Tartrate (Lopressor Iv*) 5 mg IV Q6H PRN PRN Reason: BLOOD PRESSURE Last Admin: 09/14/17 19:49 Dose: 5 mg Mometasone Furoate (Asmanex 220 Mcg Mdi *) 1 puff INH BEDTIME [facility] Last Admin: 09/15/17 20:33 Dose: 1 puff Ondansetron HCl (Zofran Inj*) 4 mg IV Q6H PRN PRN Reason: NAUSEA Last Admin: 09/11/17 15:19 Dose: 4 mg Pregabalin (Lyrica Cap(*)) 50 mg PO BEDTIME [facility] Last Admin: 09/15/17 21:41 Dose: 50 mg Sertraline HCl (Zoloft*) 200 mg PO DAILY [facility] Last Admin: 09/16/17 08:08 Dose: 200 mg Tiotropium [place] (Spiriva Cap.Inh*) 1 cap INH DAILY [facility] Last Admin: 09/16/17 09:04 Dose: 1 cap.inh Tramadol HCl (Ultram*) 50 mg PO Q12H PRN PRN Reason: PAIN Last Admin: 09/14/17 15:56 Dose: 50 mg Trazodone HCl (Desyrel Tab*) 100 mg PO BEDTIME [facility] Last Admin: 09/15/17 21:41 Dose: 100 mg Vital Signs - 8 hr 09/16/17 09/16/17 09/16/17 07:15 08:00 09:17 Temperature 98.1 F Pulse Rate 93 157 Respiratory 20 18 Rate Blood Pressure 80/57 (mmHg) O2 Sat by Pulse 96 Oximetry 09/16/17 09/16/17 11:12 11:28 Temperature 97.6 F Pulse Rate 113 Respiratory 22 Rate Blood Pressure 88/60 (mmHg) O2 Sat by Pulse 97 Oximetry Oxygen Devices in Use Now: Nasal Cannula Appearance: alert, nontoxic, no distress, breathing comfortably Eyes: No Scleral Icterus Ears/Nose/Mouth/Throat: NL Teeth, Lips, Gums Neck: - - JVP to mandible Respiratory: Symmetrical Chest Expansion and Respiratory Effort Cardiovascular: - - tachycardic, irregular rhythm Abdominal: NL Sounds; No Tenderness; No Distention - obese, ostomy in LLQ, tenderness to deep palpation inferior to ostomy, no guarding or rebound Lymphatic: No Cervical Adenopathy Extremities: No Edema Skin: No Rash or Ulcers Neurological: Alert and Oriented x 3 Result Diagrams: 09/16/17 08:59 09/16/17 08:59 Additional Lab and Data: Lab Results 09/08/17 09/08/17 09/08/17 Range/Units 12:20 12:20 12:20 WBC 12.7 H (3.5-10.8) 10^3/ul RBC 3.61 L (4.0-5.4) 10^6/ul Hgb 9.6 L (12.0-16.0) g/dl Hct 31 L (35-47) % MCV 85 (80-97) fL MCH 27 (27-31) pg MCHC 31 (31-36) g/dl RDW 18 H (10.5-15) % Plt Count 303 (150-450) 10^3/ul MPV 8.3 (7.4-10.4) um3 Neut % (Auto) 79.4 (38-83) % Lymph % (Auto) 11.1 L (25-47) % Grundy % (Auto) 8.7 H (0-7) % Eos % (Auto) 0.4 (0-6) % Baso % (Auto) 0.4 (0-2) % Absolute Neuts (auto) 10.1 H (1.5-7.7) 10^3/ul Absolute Lymphs (auto) 1.4 (1.0-4.8) 10^3/ul Absolute Monos (auto) 1.1 H (0-0.8) 10^3/ul Absolute Eos (auto) 0.1 (0-0.6) 10^3/ul Absolute Basos (auto) 0 (0-0.2) 10^3/ul Absolute Nucleated RBC 0 10^3/ul Nucleated RBC % 0.2 ESR Cancelled INR (Anticoag Therapy) 1.35 H (0.77-1.02) APTT 26.2 (26.0-36.3) seconds Sodium 133 L (139-145) mmol/L Potassium TNP Chloride 101 (101-111) mmol/L Carbon Dioxide 25 (22-32) mmol/L Anion Gap 7 (2-11) mmol/L BUN 11 (6-24) mg/dL Creatinine 1.04 H (0.51-0.95) mg/dL Est GFR ( Amer) 68.2 (>60) Est GFR (Non-Af Amer) 53.0 (>60) BUN/Creatinine Ratio 10.6 (8-20) Glucose 103 H (70-100) mg/dL Lactic Acid (0.5-2.0) mmol/L Calcium 8.2 L (8.6-10.3) mg/dL Total Bilirubin 0.60 (0.2-1.0) mg/dL AST TNP ALT 20 (7-52) U/L Alkaline Phosphatase 69 (34-104) U/L Troponin I 0.02 (<0.04) ng/mL C-Reactive Protein 159.34 H (< 5.00) mg/L B-Natriuretic Peptide ( - 100) pg/mL Total Protein 7.0 (6.4-8.9) g/dL Albumin 2.6 L (3.2-5.2) g/dL Globulin 4.4 H (2-4) g/dL Albumin/Globulin Ratio 0.6 L (1-3) Procalcitonin (<0.6) ng/mL Blood Type Antibody Screen 09/08/17 09/08/17 09/08/17 Range/Units 12:20 13:00 13:00 WBC (3.5-10.8) 10^3/ul RBC (4.0-5.4) 10^6/ul Hgb (12.0-16.0) g/dl Hct (35-47) % MCV (80-97) fL MCH (27-31) pg MCHC (31-36) g/dl RDW (10.5-15) % Plt Count (150-450) 10^3/ul MPV (7.4-10.4) um3 Neut % (Auto) (38-83) % Lymph % (Auto) (25-47) % Grundy % (Auto) (0-7) % Eos % (Auto) (0-6) % Baso % (Auto) (0-2) % Absolute Neuts (auto) (1.5-7.7) 10^3/ul Absolute Lymphs (auto) (1.0-4.8) 10^3/ul Absolute Monos (auto) (0-0.8) 10^3/ul Absolute Eos (auto) (0-0.6) 10^3/ul Absolute Basos (auto) (0-0.2) 10^3/ul Absolute Nucleated RBC 10^3/ul Nucleated RBC % ESR INR (Anticoag Therapy) (0.77-1.02) APTT (26.0-36.3) seconds Sodium (139-145) mmol/L Potassium Chloride (101-111) mmol/L Carbon Dioxide (22-32) mmol/L Anion Gap (2-11) mmol/L BUN (6-24) mg/dL Creatinine (0.51-0.95) mg/dL Est GFR ( Amer) (>60) Est GFR (Non-Af Amer) (>60) BUN/Creatinine Ratio (8-20) Glucose (70-100) mg/dL Lactic Acid 1.2 (0.5-2.0) mmol/L Calcium (8.6-10.3) mg/dL Total Bilirubin (0.2-1.0) mg/dL AST ALT (7-52) U/L Alkaline Phosphatase (34-104) U/L Troponin I (<0.04) ng/mL C-Reactive Protein (< 5.00) mg/L B-Natriuretic Peptide 752 H ( - 100) pg/mL Total Protein (6.4-8.9) g/dL Albumin (3.2-5.2) g/dL Globulin (2-4) g/dL Albumin/Globulin Ratio (1-3) Procalcitonin 0.1 (<0.6) ng/mL Blood Type Antibody Screen 09/08/17 09/08/17 09/08/17 Range/Units 13:00 15:58 18:16 WBC (3.5-10.8) 10^3/ul RBC (4.0-5.4) 10^6/ul Hgb (12.0-16.0) g/dl Hct (35-47) % MCV (80-97) fL MCH (27-31) pg MCHC (31-36) g/dl RDW (10.5-15) % Plt Count (150-450) 10^3/ul MPV (7.4-10.4) um3 Neut % (Auto) (38-83) % Lymph % (Auto) (25-47) % Grundy % (Auto) (0-7) % Eos % (Auto) (0-6) % Baso % (Auto) (0-2) % Absolute Neuts (auto) (1.5-7.7) 10^3/ul Absolute Lymphs (auto) (1.0-4.8) 10^3/ul Absolute Monos (auto) (0-0.8) 10^3/ul Absolute Eos (auto) (0-0.6) 10^3/ul Absolute Basos (auto) (0-0.2) 10^3/ul Absolute Nucleated RBC 10^3/ul Nucleated RBC % ESR 97 H INR (Anticoag Therapy) (0.77-1.02) APTT (26.0-36.3) seconds Sodium (139-145) mmol/L Potassium Chloride (101-111) mmol/L Carbon Dioxide (22-32) mmol/L Anion Gap (2-11) mmol/L BUN (6-24) mg/dL Creatinine (0.51-0.95) mg/dL Est GFR ( Amer) (>60) Est GFR (Non-Af Amer) (>60) BUN/Creatinine Ratio (8-20) Glucose (70-100) mg/dL Lactic Acid 0.8 (0.5-2.0) mmol/L Calcium (8.6-10.3) mg/dL Total Bilirubin (0.2-1.0) mg/dL AST ALT (7-52) U/L Alkaline Phosphatase (34-104) U/L Troponin I (<0.04) ng/mL C-Reactive Protein (< 5.00) mg/L B-Natriuretic Peptide ( - 100) pg/mL Total Protein (6.4-8.9) g/dL Albumin (3.2-5.2) g/dL Globulin (2-4) g/dL Albumin/Globulin Ratio (1-3) Procalcitonin (<0.6) ng/mL Blood Type A Negative Antibody Screen Negative Assess/Plan/Problems-Billing Assessment: Mrs. Ziegler is a 66yo F with PMH of obesity, Afib, COPD on home O2 2 liters/ min, PVF, GERD, diastolic CHF with EF 55%, chronic pain, HTN, DVT, PE, RYAN, diabetes, bowel obstruction requiring colostomy, CAD s/p CABG, s/p AVR (porcine) , HLD, hypothyroidism, who presented to ED with c/o weakness and malaise, found to have a large LLQ mass. - Patient Problems (1) Atrial fibrillation Current Visit: Yes Status: Acute Code(s): I48.91 - UNSPECIFIED ATRIAL FIBRILLATION SNOMED Code(s): 46464304 Comment: with RVR, now with evidence of hemodynamic instability, however mental status is okay and bp is only slightly below baseline I believe she is still volume overloaded. She is not bleeding, her pain is unchanged, afebrile, so these factors do not seem to be inciting this event. Continue digoxin loading. No AC due to recent GI bleed--I discussed this more with her. Even last admission (july) after GI bleed, her anticoagulation was re-tried, and she bled again, so AC is contraindicated. I consulted Dr. Wooten and he evaluated her; cardioversion is contraindicated due to not being anticoagulated. If tachycardia and hypotension persist, may need ICU level of care (2) Abdominal mass, left lower quadrant Current Visit: Yes Status: Acute Code(s): R19.04 - LEFT LOWER QUADRANT ABDOMINAL SWELLING, MASS AND LUMP SNOMED Code(s): 076332392 Comment: CT showed a large mass on the LLQ with prominent surrounding interstitial stranding which may represent a phlegmonous process. No evidence of obstuction Dr. Jackson recommending antibiotics, no OR plan at this point Continue Cipro/Flagyl day 8 ID following Midline placed yesterday (3) COPD (chronic obstructive pulmonary disease) Current Visit: Yes Status: Acute Code(s): J44.9 - CHRONIC OBSTRUCTIVE PULMONARY DISEASE, UNSPECIFIED SNOMED Code(s): 08134963 Comment: no exacerbation (4) Diabetes Current Visit: Yes Status: Acute Code(s): E11.9 - TYPE 2 DIABETES MELLITUS WITHOUT COMPLICATIONS SNOMED Code(s): 34368509 Comment: - Continue Lantus and Lispro SS. (5) Acute on chronic respiratory failure with hypoxemia Current Visit: No Status: Acute Code(s): J96.21 - ACUTE AND CHRONIC RESPIRATORY FAILURE WITH HYPOXIA SNOMED Code(s): 88524423696882908 Comment: Now on home settings of 2.5Lnc Resolved (6) S/P aortic valve replacement with bioprosthetic valve Current Visit: No Status: Chronic Priority: Low Code(s): Z95.4 - PRESENCE OF OTHER HEART-VALVE REPLACEMENT SNOMED Code(s): 0461583252608 Comment: porcine valve noted Status and Disposition: Inpatient.
--- NOTE | 2017-09-16 14:29 | CONS ---
CC: Hospitalist Service; Raven Wooten MD; Dr. Simons CARDIOLOGY CONSULT: DATE OF CONSULT: 09/16/17 HISTORY OF PRESENT ILLNESS: I was asked by hospitalist service, Dr. Ontiveros, to see this 66-year-old female patient who presented to the hospital and admitted for weakness on 09/08/17. The patient does have chronic medical issues including chronic atrial fibrillation, flutter, coronary artery disease, CABG, bioprosthetic aortic valve replacement, diabetes, obstructive sleep apnea, systemic arterial h ypertension, morbid obesity, peripheral vascular disease, chronic respiratory failure, bowel obstruct ion requiring colostomy, history of hyperlipidemia, hypothyroidism. Cardiology consult was further r equested as the patient does have rapid atrial flutter and fibrillation in the setting of low blood p ressure. While she was hospitalized, she was found to have a very large left lower quadrant mass. Jigar sánchez was seen by Surgery by Dr. Jackson and by ID, feeling this is an abscess. She was started on antibio tic treatment. She has no fever, no chills, no chest pain at the present time. No nausea. No vomit ing. No hematochezia. No skin rash. No abdominal pain currently. No syncope. She does have signi ficant comorbidities which she is aware of. She has been maintained actually with rate control for h er chronic AFib with diltiazem 240 mg daily and Toprol 50 mg daily. She does have chronic AFib, flut ter. She was on chronic anticoagulation, but according to the patient this has been on hold and then resumed and on hold because of GI bleed. She was found today to be in borderline mild potassium and mild magnesium. She is anemic. Her review of all other systems essentially is negative. PAST MEDICAL HISTORY: Extensive and including; 1. History of coronary artery disease. 2. History of CABG. 3. Bioprosthetic aortic valve replacement. 4. COPD. 5. Chronic respiratory failure. 6. Peripheral vascular disease. 7. Morbid obesity. 8. Obstructive sleep apnea. 9. History of DVT and PE. 10. Diabetes mellitus. 11. Bowel obstruction requiring colostomy. 12. Hyperlipidemia. 13. Hypothyroidism. PAST SURGICAL HISTORY: Include: 1. CABG. 2. Aortic valve replacement, bioprosthetic. 3. Colostomy. 4. Cholecystectomy. 5. Appendectomy. 6. Hernia repair. MEDICATIONS: Include: 1. Tylenol 650 mg p.o. q.4 hours p.r.n. 2. Albuterol. 3. Aspirin 81 mg daily. 4. Lipitor 80 mg daily. 5. Ceftriaxone. 6. Dextrose. 7. Digoxin 0.25 mg IV was just started. 8. Cardizem 240 mg daily. 9. Zetia 10 mg daily. 10. Heparin adjusted to her PTT. 11. Insulin. 12. She is also on Synthroid 200 mcg daily. 13. Toprol 50 mg daily. 14. Lopressor 5 mg IV q.6 hours p.r.n. 15. She is also on Flagyl and Zofran 4 mg IV q.6 hours. 16. She is on Zoloft 200 mg daily. 17. Spiriva inhaler. 18. Ultram 50 mg p.o. q.12 hours p.r.n. ALLERGIES: She is allergic to SHELLFISH, BEES, CELEBREX, and IV DYE. FAMILY HISTORY: No family history of premature coronary artery disease. SOCIAL HISTORY: She used to smoke, she quit 3 years ago. Rarely drinks alcohol. No history of illic it drug use. REVIEW OF SYSTEMS: Review of all other systems essentially is negative. PHYSICAL EXAM: On exam, she is morbidly obese. She is awake, alert, and oriented. She has no sympto ms of chest pain. Vitals: Heart rate is about 130. She is in atrial flutter. Blood pressure is ab out 88 systolic. Head and Neck Exam: Normocephalic, atraumatic. Ears, nose, and throat essentially benign. Neck: Supple. JVP is mildly elevated while she is sitting. Chest: Diminished air entry bi laterally at the bases. Heart: Tachycardic. Regular S1, S2. No added sounds. No gallops and no ru bs. Abdomen: Obese. Soft. Positive bowel sounds. Extremities: +2 edema. Skin Exam: There is so me ecchymosis bilaterally in the lower extremities. [employer] HEL[employer]: No focal deficits. Psych: Normal affect and mood. DIAGNOSTIC STUDIES/LAB DATA: Labs from today: White blood cells 13.7, hemoglobin 9.5, hematocrit 30 , platelets 288. Chemistry: Sodium 137, potassium 3.6, chloride 98, total CO2 is 33, magnesium 1.7, calcium 8.4. EKG showed the patient to be in atrial fibrillation, heart rate 78; that was done on 09/08/17. IMPRESSION: The patient is a 66-year-old female patient with significant comorbidities, high risk wi ; 1. Chronic atrial fibrillation and flutter, on rate-limiting agents and Coumadin treatment. 2. She has been on and off Coumadin because of concerns for gastrointestinal bleed. She is off Coum joanna. 3. Diagnosed with large left lower quadrant mass, felt to be at the present time after evaluation wi Surgery and ID to be abscess. 4. Coronary artery disease, status post coronary artery bypass graft. 5. Status post aortic valve replacement. 6. Morbid obesity. 7. Obstructive sleep apnea. 8. Hyperlipidemia. 9. Systemic arterial hypertension. 10. Diabetes mellitus. 11. Abnormal electrocardiogram as described. PLAN: Her management is very challenging given she has been off anticoagulation for a while and she does have chronic atrial fibrillation, according to the patient "all my life." Given her comorbiditi es and she is not on anticoagulation and transesophageal echocardiography was not done, I do recommen d continuing rate control. I understand this can be challenging given her blood pressure systolic is borderline low, but I will definitely agree with digoxin. Continue beta bao and calcium channel bao as tolerated and treatment for secondary causes for her tachycardia including electrolyte im balance. We will evaluate for any dehydration or if she is in mild congestive heart failure. I will obtain a BNP. I will keep a close eye on her electrolytes. I will see her response to digoxin IV a s we are already doing. I do not think chemical or electrical cardioversion, she is a candidate for that given she is not on anticoagulation and given her atrial fibrillation and flutter is very chroni c and the chances for her to stay in normal sinus rhythm will be low. TIME SPENT: More than half of at least 65 plus minutes was in [id number] in the education and coun seling mode, answering all her concerns and questions and discussing care with Dr. Ontiveros. [id number]/[facility] #: [id number]
[2017-09-16] MEDS: Metoprolol Tartrate IV* 1 MG/ML 5 ML VIAL IV PRN (14:32)
[2017-09-16] MEDS ORDERED: Metoprolol Tartrate TAB* 25 MG ONE (14:45)
[2017-09-16] MEDS: Metoprolol Tartrate TAB* 25 MG PO SCH ×2 (14:47→23:20)
[2017-09-16] MEDS: Insulin GLARGINE(*) 1 UNITS UNIT SUBCUT SCH (18:18)
[2017-09-16] MEDS: Mometasone 220 MCG MDI INH SCH (19:46)
[2017-09-16] MEDS: traZODone TAB* 100 MG PO SCH (20:00)
[2017-09-16] MEDS: Pregabalin CAP(*) 50 MG PO SCH (20:00)
[2017-09-17] MEDS: Metoprolol Tartrate TAB* 25 MG PO SCH ×4 (04:30→23:00)
[2017-09-17] MEDS: metroNIDAZOLE IV 500 MG/100ML* 500 MG/100 ML BAG IVPB SCH ×3 (04:30→20:09)
[2017-09-17 06:10] LABS: ABS Basophils 0.1 10^3/ul (0-0.2); ABS Eosinophils 0.3 10^3/ul (0-0.6); ABS Lymphocytes 1.6 10^3/ul (1.0-4.8); ABS Monocytes 1.2 10^3/ul (0-0.8); ABS Neutrophils 10.5 10^3/ul (1.5-7.7); ABS Nucleated RBC 0 10^3/ul; Hematocrit 27 % (35-47); Hemoglobin 8.8 g/dl (12.0-16.0); Lymphocyte % 11.8 % (25-47); Mean Corpuscular HGB Conc 32 g/dl (31-36); Mean Corpuscular Hemoglobin 27 pg (27-31); Mean Corpuscular Volume 83 fL (80-97); Nucleated Red Blood Cells % 0.2; Platelet Count 252 10^3/ul (150-450); Red Blood Count 3.28 10^6/ul (4.0-5.4); Red Cell Distribution Width 18 % (10.5-15); White Blood Count 13.7 10^3/ul (3.5-10.8)
[2017-09-17] MEDS: Levothyroxine TAB* 100 MCG TAB PO SCH (06:14)
[2017-09-17] MEDS: Heparin VIAL(*) 5000 UNITS/ML VIAL (FIVE THOUSAND) SUBCUT SCH ×3 (06:16→21:03)
[2017-09-17] MEDS: Metoprolol Succinate XL TAB* 50 MG PO SCH (07:14)
[2017-09-17] MEDS: Tiotropium CAP.INH* CAP.INH/18 MCG (USE ORDER SET !) INH SCH (07:23)
[2017-09-17] MEDS: Insulin LISPRO* 1 UNITS UNIT SUBCUT SCH ×4 (07:26→21:02)
[2017-09-17] MEDS: Diltiazem CD CAP* 240 MG PO SCH (07:31)
[2017-09-17] MEDS: Ezetimibe TAB* 10 MG PO SCH (07:31)
[2017-09-17] MEDS: Sertraline* 100 MG TAB PO SCH (07:31)
[2017-09-17] MEDS: Atorvastatin* 80 MG TAB PO SCH (07:31)
[2017-09-17] MEDS: Aspirin EC TAB* 81 MG TAB.EC PO SCH (07:31)
[2017-09-17 08:41] LABS: EGFR Non-African American 78.5 (>60)
[2017-09-17] MEDS: cefTRIAXone(*) 2 GM in NS 0.9% 100 ML* 100 ML IVPB SCH (09:49)
[2017-09-17] MEDS: Insulin GLARGINE(*) 1 UNITS UNIT SUBCUT SCH (17:17)
--- NOTE | 2017-09-17 19:32 | PN ---
Subjective Date of Service: 09/17/17 Interval History: Pt seen and examined. Meds and labs reviewed. ROS: Denied HOWE/dizziness, F/C, N/V, CP, SOB, increased cough, sputum production , abd pain, diarrhea, constipation, dysuria, myalgias, arthralgias, throat pain , and new skin lesions. The rest of the 14 point ROS are unremarkable. PHYSICAL EXAM: GEN APPEARANCE: Awake, not in acute distress HEENT: NC/AT, PERRLA, moist oral mucosa, (-) throat erythema NECK: Soft, supple, (-) cervical LAD, (-)JVD HEART: S1S2 WNL, RRR, No MRG CHEST: CTA, BL, GAE, No W/R/R ABD: Soft, ND/NT, NABS 4x Q EXT: No C/C/RLE>LLE. 1-2+ SKIN: Warm to touch PSYCH: No active psychosis, hallucinations, depression, SI/HI Family History: Unchanged from Admission Social History: Unchanged from Admission Past Medical History: Unchanged from Admission Objective Active Medications: Acetaminophen (Tylenol Tab*) 650 mg PO Q4H PRN PRN Reason: FEVER/PAIN Last Admin: 09/14/17 07:55 Dose: 650 mg Albuterol (Ventolin Hfa Inhaler*) 2 puff INH Q4H PRN PRN Reason: SOB/WHEEZING Aspirin (Aspirin Ec Tab*) 81 mg PO DAILY [facility] Last Admin: 09/17/17 07:31 Dose: 81 mg Atorvastatin Calcium (Lipitor*) 80 mg PO DAILY [facility] Last Admin: 09/17/17 07:31 Dose: 80 mg Dextrose (D50w Syringe 50 Ml*) 12.5 gm IV PUSH .FOR FS < 60 - SS PRN PRN Reason: FS < 60 Digoxin (Lanoxin Tab*) 0.125 mg PO DAILY [facility] Diltiazem HCl (Cardizem Cd Cap*) 240 mg PO 0600 [facility] Last Admin: 09/17/17 07:31 Dose: 240 mg Ezetimibe (Zetia Tab*) 10 mg PO DAILY [facility] Last Admin: 09/17/17 07:31 Dose: 10 mg Heparin Sodium (Porcine) (Heparin Vial(*)) 5,000 units SUBCUT Q8HR [facility] Last Admin: 09/17/17 12:52 Dose: 5,000 units Heparin Sodium (Porcine) (Heparin Flush Picc/Ml/Cvc(*)) 1 ml FLUSH 0600,1800 [facility] PRN Reason: Protocol Last Admin: 09/17/17 17:14 Dose: 1 ml Metronidazole/Sodium Chloride (Flagyl 500 Mg Ivpb*) 500 mg in 100 mls @ 100 mls /hr IVPB Q8H [facility] Last Admin: 09/17/17 12:52 Dose: 100 mls/hr Ceftriaxone Sodium 2 gm/ (Sodium Chloride) 100 mls @ 200 mls/hr IVPB Q24H [facility] Last Admin: 09/17/17 09:49 Dose: 200 mls/hr Insulin Glargine (Lantus(*)) 10 units SUBCUT Q24H [facility] Last Admin: 09/17/17 17:17 Dose: 10 units Insulin Human Lispro (Humalog*) 0 units SUBCUT ACHS [facility] PRN Reason: Protocol Last Admin: 09/17/17 16:42 Dose: Not Given Levothyroxine Sodium (Synthroid Tab*) 200 mcg PO DAILY@0600 [facility] Last Admin: 09/17/17 06:14 Dose: 200 mcg Metoprolol Succinate (Toprol Xl Tab*) 50 mg PO DAILY@0600 [facility] Last Admin: 09/17/17 07:14 Dose: 50 mg Metoprolol Tartrate (Lopressor Iv*) 5 mg IV Q6H PRN PRN Reason: BLOOD PRESSURE Last Admin: 09/16/17 14:32 Dose: 5 mg Metoprolol Tartrate (Lopressor Tab*) 25 mg PO Q6H [facility] Last Admin: 09/17/17 14:51 Dose: 25 mg Mometasone Furoate (Asmanex 220 Mcg Mdi *) 1 puff INH BEDTIME [facility] Last Admin: 09/16/17 19:46 Dose: 1 puff Ondansetron HCl (Zofran Inj*) 4 mg IV Q6H PRN PRN Reason: NAUSEA Last Admin: 09/11/17 15:19 Dose: 4 mg Pregabalin (Lyrica Cap(*)) 50 mg PO BEDTIME [facility] Last Admin: 09/16/17 20:00 Dose: 50 mg Sertraline HCl (Zoloft*) 200 mg PO DAILY [facility] Last Admin: 09/17/17 07:31 Dose: 200 mg Tiotropium [place] (Spiriva Cap.Inh*) 1 cap INH DAILY [facility] Last Admin: 09/17/17 07:23 Dose: 1 cap.inh Tramadol HCl (Ultram*) 50 mg PO Q12H PRN PRN Reason: PAIN Last Admin: 09/14/17 15:56 Dose: 50 mg Trazodone HCl (Desyrel Tab*) 100 mg PO BEDTIME [facility] Last Admin: 09/16/17 20:00 Dose: 100 mg Vital Signs - 8 hr 09/17/17 09/17/17 09/17/17 12:14 14:44 15:47 Temperature 99.0 F 97.6 F Pulse Rate 74 136 76 Respiratory 16 16 Rate Blood Pressure 121/62 123/61 74/50 (mmHg) O2 Sat by Pulse 100 99 Oximetry Oxygen Devices in Use Now: Nasal Cannula Result Diagrams: 09/17/17 06:01 09/17/17 06:01 Additional Lab and Data: Lab Results 09/08/17 09/08/17 09/08/17 Range/Units 12:20 12:20 12:20 WBC 12.7 H (3.5-10.8) 10^3/ul RBC 3.61 L (4.0-5.4) 10^6/ul Hgb 9.6 L (12.0-16.0) g/dl Hct 31 L (35-47) % MCV 85 (80-97) fL MCH 27 (27-31) pg MCHC 31 (31-36) g/dl RDW 18 H (10.5-15) % Plt Count 303 (150-450) 10^3/ul MPV 8.3 (7.4-10.4) um3 Neut % (Auto) 79.4 (38-83) % Lymph % (Auto) 11.1 L (25-47) % [place] % (Auto) 8.7 H (0-7) % Eos % (Auto) 0.4 (0-6) % Baso % (Auto) 0.4 (0-2) % Absolute Neuts (auto) 10.1 H (1.5-7.7) 10^3/ul Absolute Lymphs (auto) 1.4 (1.0-4.8) 10^3/ul Absolute Monos (auto) 1.1 H (0-0.8) 10^3/ul Absolute Eos (auto) 0.1 (0-0.6) 10^3/ul Absolute Basos (auto) 0 (0-0.2) 10^3/ul Absolute Nucleated RBC 0 10^3/ul Nucleated RBC % 0.2 ESR Cancelled INR (Anticoag Therapy) 1.35 H (0.77-1.02) APTT 26.2 (26.0-36.3) seconds Sodium 133 L (139-145) mmol/L Potassium TNP Chloride 101 (101-111) mmol/L Carbon Dioxide 25 (22-32) mmol/L Anion Gap 7 (2-11) mmol/L BUN 11 (6-24) mg/dL Creatinine 1.04 H (0.51-0.95) mg/dL Est GFR ( Amer) 68.2 (>60) Est GFR (Non-Af Amer) 53.0 (>60) BUN/Creatinine Ratio 10.6 (8-20) Glucose 103 H (70-100) mg/dL Lactic Acid (0.5-2.0) mmol/L Calcium 8.2 L (8.6-10.3) mg/dL Total Bilirubin 0.60 (0.2-1.0) mg/dL AST TNP ALT 20 (7-52) U/L Alkaline Phosphatase 69 (34-104) U/L Troponin I 0.02 (<0.04) ng/mL C-Reactive Protein 159.34 H (< 5.00) mg/L B-Natriuretic Peptide ( - 100) pg/mL Total Protein 7.0 (6.4-8.9) g/dL Albumin 2.6 L (3.2-5.2) g/dL Globulin 4.4 H (2-4) g/dL Albumin/Globulin Ratio 0.6 L (1-3) Procalcitonin (<0.6) ng/mL Blood Type Antibody Screen 09/08/17 09/08/17 09/08/17 Range/Units 12:20 13:00 13:00 WBC (3.5-10.8) 10^3/ul RBC (4.0-5.4) 10^6/ul Hgb (12.0-16.0) g/dl Hct (35-47) % MCV (80-97) fL MCH (27-31) pg MCHC (31-36) g/dl RDW (10.5-15) % Plt Count (150-450) 10^3/ul MPV (7.4-10.4) um3 Neut % (Auto) (38-83) % Lymph % (Auto) (25-47) % [place] % (Auto) (0-7) % Eos % (Auto) (0-6) % Baso % (Auto) (0-2) % Absolute Neuts (auto) (1.5-7.7) 10^3/ul Absolute Lymphs (auto) (1.0-4.8) 10^3/ul Absolute Monos (auto) (0-0.8) 10^3/ul Absolute Eos (auto) (0-0.6) 10^3/ul Absolute Basos (auto) (0-0.2) 10^3/ul Absolute Nucleated RBC 10^3/ul Nucleated RBC % ESR INR (Anticoag Therapy) (0.77-1.02) APTT (26.0-36.3) seconds Sodium (139-145) mmol/L Potassium Chloride (101-111) mmol/L Carbon Dioxide (22-32) mmol/L Anion Gap (2-11) mmol/L BUN (6-24) mg/dL Creatinine (0.51-0.95) mg/dL Est GFR ( Amer) (>60) Est GFR (Non-Af Amer) (>60) BUN/Creatinine Ratio (8-20) Glucose (70-100) mg/dL Lactic Acid 1.2 (0.5-2.0) mmol/L Calcium (8.6-10.3) mg/dL Total Bilirubin (0.2-1.0) mg/dL AST ALT (7-52) U/L Alkaline Phosphatase (34-104) U/L Troponin I (<0.04) ng/mL C-Reactive Protein (< 5.00) mg/L B-Natriuretic Peptide 752 H ( - 100) pg/mL Total Protein (6.4-8.9) g/dL Albumin (3.2-5.2) g/dL Globulin (2-4) g/dL Albumin/Globulin Ratio (1-3) Procalcitonin 0.1 (<0.6) ng/mL Blood Type Antibody Screen 09/08/17 09/08/17 09/08/17 Range/Units 13:00 15:58 18:16 WBC (3.5-10.8) 10^3/ul RBC (4.0-5.4) 10^6/ul Hgb (12.0-16.0) g/dl Hct (35-47) % MCV (80-97) fL MCH (27-31) pg MCHC (31-36) g/dl RDW (10.5-15) % Plt Count (150-450) 10^3/ul MPV (7.4-10.4) um3 Neut % (Auto) (38-83) % Lymph % (Auto) (25-47) % [place] % (Auto) (0-7) % Eos % (Auto) (0-6) % Baso % (Auto) (0-2) % Absolute Neuts (auto) (1.5-7.7) 10^3/ul Absolute Lymphs (auto) (1.0-4.8) 10^3/ul Absolute Monos (auto) (0-0.8) 10^3/ul Absolute Eos (auto) (0-0.6) 10^3/ul Absolute Basos (auto) (0-0.2) 10^3/ul Absolute Nucleated RBC 10^3/ul Nucleated RBC % ESR 97 H INR (Anticoag Therapy) (0.77-1.02) APTT (26.0-36.3) seconds Sodium (139-145) mmol/L Potassium Chloride (101-111) mmol/L Carbon Dioxide (22-32) mmol/L Anion Gap (2-11) mmol/L BUN (6-24) mg/dL Creatinine (0.51-0.95) mg/dL Est GFR ( Amer) (>60) Est GFR (Non-Af Amer) (>60) BUN/Creatinine Ratio (8-20) Glucose (70-100) mg/dL Lactic Acid 0.8 (0.5-2.0) mmol/L Calcium (8.6-10.3) mg/dL Total Bilirubin (0.2-1.0) mg/dL AST ALT (7-52) U/L Alkaline Phosphatase (34-104) U/L Troponin I (<0.04) ng/mL C-Reactive Protein (< 5.00) mg/L B-Natriuretic Peptide ( - 100) pg/mL Total Protein (6.4-8.9) g/dL Albumin (3.2-5.2) g/dL Globulin (2-4) g/dL Albumin/Globulin Ratio (1-3) Procalcitonin (<0.6) ng/mL Blood Type A Negative Antibody Screen Negative Assess/Plan/Problems-Billing Assessment: Mrs. Ziegler is a 66yo F with PMH of obesity, Afib, COPD on home O2 2 liters/ min, PVF, GERD, diastolic CHF with EF 55%, chronic pain, HTN, DVT, PE, RYAN, diabetes, bowel obstruction requiring colostomy, CAD s/p CABG, s/p AVR (porcine) , HLD, hypothyroidism, who presented to ED with c/o weakness and malaise, found to have a large LLQ mass. - Patient Problems (1) Abdominal mass, left lower quadrant Current Visit: Yes Status: Acute Code(s): R19.04 - LEFT LOWER QUADRANT ABDOMINAL SWELLING, MASS AND LUMP SNOMED Code(s): 742467527 Comment: --CT showed a large mass on the LLQ with prominent surrounding interstitial stranding which may represent a phlegmonous process. No evidence of obstuction --continue ceftriaxone 2gm IV daily/flagyl 500 mg IV Q8hrs; CBC, CMP, CRP weekly and follow up CT scan 3 weeks as long as otherwise improving --ID following --?Uro consult (2) Atrial fibrillation Current Visit: Yes Status: Acute Code(s): I48.91 - UNSPECIFIED ATRIAL FIBRILLATION SNOMED Code(s): 06269913 Comment: --Now rate controlled --No AC due to recent GI bleed--previously discussed. (3) COPD (chronic obstructive pulmonary disease) Current Visit: Yes Status: Acute Code(s): J44.9 - CHRONIC OBSTRUCTIVE PULMONARY DISEASE, UNSPECIFIED SNOMED Code(s): 08294165 Comment: no exacerbation (4) Diabetes Current Visit: Yes Status: Acute Code(s): E11.9 - TYPE 2 DIABETES MELLITUS WITHOUT COMPLICATIONS SNOMED Code(s): 28784658 Comment: - Continue Lantus and Lispro SS. Status and Disposition: Inpatient.
[2017-09-17] MEDS: Mometasone 220 MCG MDI INH SCH (20:04)
[2017-09-17] MEDS: traZODone TAB* 100 MG PO SCH (21:03)
[2017-09-17] MEDS: Pregabalin CAP(*) 50 MG PO SCH (21:03)
[2017-09-18] MEDS: metroNIDAZOLE IV 500 MG/100ML* 500 MG/100 ML BAG IVPB SCH ×3 (03:30→20:04)
[2017-09-18] MEDS: Metoprolol Tartrate TAB* 25 MG PO SCH ×4 (03:30→20:10)
[2017-09-18] MEDS: Levothyroxine TAB* 100 MCG TAB PO SCH (06:05)
[2017-09-18] MEDS: Heparin VIAL(*) 5000 UNITS/ML VIAL (FIVE THOUSAND) SUBCUT SCH ×3 (06:05→22:03)
[2017-09-18 06:39] LABS: ABS Basophils 0.1 10^3/ul (0-0.2); ABS Eosinophils 0.3 10^3/ul (0-0.6); ABS Lymphocytes 1.6 10^3/ul (1.0-4.8); ABS Nucleated RBC 0 10^3/ul; Eosinophil % 2.2 % (0-6); Hematocrit 28 % (35-47); Hemoglobin 8.9 g/dl (12.0-16.0); Lymphocyte % 13.5 % (25-47); Mean Corpuscular HGB Conc 32 g/dl (31-36); Mean Corpuscular Hemoglobin 27 pg (27-31); Mean Corpuscular Volume 83 fL (80-97); Mean Platelet Volume 8.3 um3 (7.4-10.4); Nucleated Red Blood Cells % 0.1; Platelet Count 251 10^3/ul (150-450); Red Blood Count 3.34 10^6/ul (4.0-5.4); Red Cell Distribution Width 18 % (10.5-15); White Blood Count 12.1 10^3/ul (3.5-10.8)
[2017-09-18 06:56] LABS: EGFR Non-African American 76.1 (>60)
[2017-09-18] MEDS: Tiotropium CAP.INH* CAP.INH/18 MCG (USE ORDER SET !) INH SCH (07:24)
[2017-09-18] MEDS: Insulin LISPRO* 1 UNITS UNIT SUBCUT SCH ×4 (08:00→20:16)
[2017-09-18] MEDS: Metoprolol Succinate XL TAB* 50 MG PO SCH (08:05)
[2017-09-18] MEDS: Aspirin EC TAB* 81 MG TAB.EC PO SCH (08:05)
[2017-09-18] MEDS: Digoxin TAB* 0.125 MG PO SCH (08:05)
[2017-09-18] MEDS: Sertraline* 100 MG TAB PO SCH (08:05)
[2017-09-18] MEDS: Atorvastatin* 80 MG TAB PO SCH (08:05)
[2017-09-18] MEDS: Diltiazem CD CAP* 240 MG PO SCH (08:05)
[2017-09-18] MEDS: Ezetimibe TAB* 10 MG PO SCH (08:06)
[2017-09-18] MEDS ORDERED: Digoxin TAB* 0.125 MG PO ONE (09:00)
[2017-09-18] MEDS: cefTRIAXone(*) 2 GM in NS 0.9% 100 ML* 100 ML IVPB SCH (10:22)
--- NOTE | 2017-09-18 12:23 | RAD ---
Indication: Intermittent headache for 2 months. Abdominal mass. Comparison: No relevant prior exams available on the [facility] PACS for comparison. Technique: Noncontrast CT vertex of skull through foramen magnum. Report: Mild prominence of the cerebral sulci and cerebellar fissures reflecting atrophy. Unremarkable ventricles and basal cisterns. 3 mm chronic lacunar infarct at the LEFT frontal lobe white matter at the level of the centrum semiovale. No ya matter white matter obscuration seen in association with mass effect. Negative for intra or extra-axial hemorrhage. Unremarkable orbital contents. No suspicious calvarial or skull base lesions evident. Clear paranasal sinuses and mastoid air spaces. Unremarkable scalp. IMPRESSION: 1. Mild involutional change. 2. 3 mm chronic lacunar infarct at the LEFT frontal lobe white matter. 3. No acute intracranial process evident.
--- NOTE | 2017-09-18 16:27 | PN ---
Subjective Date of Service: 09/18/17 Interval History: Pt seen and examined. Meds and labs reviewed. Spoke with pt and her daughter at bedside for update. Pt and family appreciative of update. Per RN at bedside and pt, she usually gets exertional tachycardia in early one-teens when she would ambulate to bathroom. ROS: Exertional tachycardia. Denied HOWE/dizziness, F/C, N/V, CP, SOB, increased cough, sputum production, abd pain, diarrhea, constipation, dysuria, myalgias, arthralgias, throat pain, and new skin lesions. The rest of the 14 point ROS are unremarkable. PHYSICAL EXAM: GEN APPEARANCE: Awake, not in acute distress HEENT: NC/AT, PERRLA, moist oral mucosa, (-) throat erythema NECK: Soft, supple, (-) cervical LAD, (-)JVD HEART: S1S2 WNL, RRR, No MRG CHEST: CTA, BL, GAE, No W/R/R ABD: Soft, ND/NT, NABS 4x Q EXT: No C/C/E SKIN: Warm to touch PSYCH: No active psychosis, hallucinations, depression, SI/HI Family History: Unchanged from Admission Social History: Unchanged from Admission Past Medical History: Unchanged from Admission Objective Active Medications: Acetaminophen (Tylenol Tab*) 650 mg PO Q4H PRN PRN Reason: FEVER/PAIN Last Admin: 09/14/17 07:55 Dose: 650 mg Albuterol (Ventolin Hfa Inhaler*) 2 puff INH Q4H PRN PRN Reason: SOB/WHEEZING Aspirin (Aspirin Ec Tab*) 81 mg PO DAILY [facility] Last Admin: 09/18/17 08:05 Dose: 81 mg Atorvastatin Calcium (Lipitor*) 80 mg PO DAILY [facility] Last Admin: 09/18/17 08:05 Dose: 80 mg Dextrose (D50w Syringe 50 Ml*) 12.5 gm IV PUSH .FOR FS < 60 - SS PRN PRN Reason: FS < 60 Digoxin (Lanoxin Tab*) 0.125 mg PO DAILY [facility] Last Admin: 09/18/17 08:05 Dose: 0.125 mg Digoxin (Lanoxin Tab*) 0.25 mg PO DAILY [facility] Diltiazem HCl (Cardizem Cd Cap*) 240 mg PO 0600 [facility] Last Admin: 09/18/17 08:05 Dose: 240 mg Ezetimibe (Zetia Tab*) 10 mg PO DAILY [facility] Last Admin: 09/18/17 08:06 Dose: 10 mg Heparin Sodium (Porcine) (Heparin Vial(*)) 5,000 units SUBCUT Q8HR [facility] Last Admin: 09/18/17 13:28 Dose: 5,000 units Heparin Sodium (Porcine) (Heparin Flush Picc/Ml/Cvc(*)) 1 ml FLUSH 0600,1800 [facility] PRN Reason: Protocol Last Admin: 09/18/17 06:04 Dose: 1 ml Metronidazole/Sodium Chloride (Flagyl 500 Mg Ivpb*) 500 mg in 100 mls @ 100 mls /hr IVPB Q8H [facility] Last Admin: 09/18/17 12:44 Dose: 100 mls/hr Ceftriaxone Sodium 2 gm/ (Sodium Chloride) 100 mls @ 200 mls/hr IVPB Q24H [facility] Last Admin: 09/18/17 10:22 Dose: 200 mls/hr Insulin Glargine (Lantus(*)) 10 units SUBCUT Q24H [facility] Last Admin: 09/17/17 17:17 Dose: 10 units Insulin Human Lispro (Humalog*) 0 units SUBCUT ACHS [facility] PRN Reason: Protocol Last Admin: 09/18/17 12:43 Dose: 3 units Levothyroxine Sodium (Synthroid Tab*) 200 mcg PO DAILY@0600 [facility] Last Admin: 09/18/17 06:05 Dose: 200 mcg Metoprolol Succinate (Toprol Xl Tab*) 50 mg PO DAILY@0600 [facility] Last Admin: 09/18/17 08:05 Dose: 50 mg Metoprolol Tartrate (Lopressor Iv*) 5 mg IV Q6H PRN PRN Reason: BLOOD PRESSURE Last Admin: 09/16/17 14:32 Dose: 5 mg Metoprolol Tartrate (Lopressor Tab*) 25 mg PO Q6H [facility] Last Admin: 09/18/17 15:13 Dose: 25 mg Mometasone Furoate (Asmanex 220 Mcg Mdi *) 1 puff INH BEDTIME [facility] Last Admin: 09/17/17 20:04 Dose: 1 puff Ondansetron HCl (Zofran Inj*) 4 mg IV Q6H PRN PRN Reason: NAUSEA Last Admin: 09/11/17 15:19 Dose: 4 mg Pregabalin (Lyrica Cap(*)) 50 mg PO BEDTIME [facility] Last Admin: 09/17/17 21:03 Dose: 50 mg Sertraline HCl (Zoloft*) 200 mg PO DAILY [facility] Last Admin: 09/18/17 08:05 Dose: 200 mg Tiotropium [place] (Spiriva Cap.Inh*) 1 cap INH DAILY [facility] Last Admin: 09/18/17 07:24 Dose: 1 cap.inh Tramadol HCl (Ultram*) 50 mg PO Q12H PRN PRN Reason: PAIN Last Admin: 09/14/17 15:56 Dose: 50 mg Trazodone HCl (Desyrel Tab*) 100 mg PO BEDTIME [facility] Last Admin: 09/17/17 21:03 Dose: 100 mg Vital Signs - 8 hr 09/18/17 09/18/17 10:18 11:49 Temperature 97.7 F Pulse Rate 120 104 Respiratory 20 Rate Blood Pressure 99/77 (mmHg) O2 Sat by Pulse 99 Oximetry Oxygen Devices in Use Now: Nasal Cannula Result Diagrams: 09/18/17 06:19 09/18/17 06:19 Additional Lab and Data: Lab Results 09/08/17 09/08/17 09/08/17 Range/Units 12:20 12:20 12:20 WBC 12.7 H (3.5-10.8) 10^3/ul RBC 3.61 L (4.0-5.4) 10^6/ul Hgb 9.6 L (12.0-16.0) g/dl Hct 31 L (35-47) % MCV 85 (80-97) fL MCH 27 (27-31) pg MCHC 31 (31-36) g/dl RDW 18 H (10.5-15) % Plt Count 303 (150-450) 10^3/ul MPV 8.3 (7.4-10.4) um3 Neut % (Auto) 79.4 (38-83) % Lymph % (Auto) 11.1 L (25-47) % [place] % (Auto) 8.7 H (0-7) % Eos % (Auto) 0.4 (0-6) % Baso % (Auto) 0.4 (0-2) % Absolute Neuts (auto) 10.1 H (1.5-7.7) 10^3/ul Absolute Lymphs (auto) 1.4 (1.0-4.8) 10^3/ul Absolute Monos (auto) 1.1 H (0-0.8) 10^3/ul Absolute Eos (auto) 0.1 (0-0.6) 10^3/ul Absolute Basos (auto) 0 (0-0.2) 10^3/ul Absolute Nucleated RBC 0 10^3/ul Nucleated RBC % 0.2 ESR Cancelled INR (Anticoag Therapy) 1.35 H (0.77-1.02) APTT 26.2 (26.0-36.3) seconds Sodium 133 L (139-145) mmol/L Potassium TNP Chloride 101 (101-111) mmol/L Carbon Dioxide 25 (22-32) mmol/L Anion Gap 7 (2-11) mmol/L BUN 11 (6-24) mg/dL Creatinine 1.04 H (0.51-0.95) mg/dL Est GFR ( Amer) 68.2 (>60) Est GFR (Non-Af Amer) 53.0 (>60) BUN/Creatinine Ratio 10.6 (8-20) Glucose 103 H (70-100) mg/dL Lactic Acid (0.5-2.0) mmol/L Calcium 8.2 L (8.6-10.3) mg/dL Total Bilirubin 0.60 (0.2-1.0) mg/dL AST TNP ALT 20 (7-52) U/L Alkaline Phosphatase 69 (34-104) U/L Troponin I 0.02 (<0.04) ng/mL C-Reactive Protein 159.34 H (< 5.00) mg/L B-Natriuretic Peptide ( - 100) pg/mL Total Protein 7.0 (6.4-8.9) g/dL Albumin 2.6 L (3.2-5.2) g/dL Globulin 4.4 H (2-4) g/dL Albumin/Globulin Ratio 0.6 L (1-3) Procalcitonin (<0.6) ng/mL Blood Type Antibody Screen 09/08/17 09/08/17 09/08/17 Range/Units 12:20 13:00 13:00 WBC (3.5-10.8) 10^3/ul RBC (4.0-5.4) 10^6/ul Hgb (12.0-16.0) g/dl Hct (35-47) % MCV (80-97) fL MCH (27-31) pg MCHC (31-36) g/dl RDW (10.5-15) % Plt Count (150-450) 10^3/ul MPV (7.4-10.4) um3 Neut % (Auto) (38-83) % Lymph % (Auto) (25-47) % [place] % (Auto) (0-7) % Eos % (Auto) (0-6) % Baso % (Auto) (0-2) % Absolute Neuts (auto) (1.5-7.7) 10^3/ul Absolute Lymphs (auto) (1.0-4.8) 10^3/ul Absolute Monos (auto) (0-0.8) 10^3/ul Absolute Eos (auto) (0-0.6) 10^3/ul Absolute Basos (auto) (0-0.2) 10^3/ul Absolute Nucleated RBC 10^3/ul Nucleated RBC % ESR INR (Anticoag Therapy) (0.77-1.02) APTT (26.0-36.3) seconds Sodium (139-145) mmol/L Potassium Chloride (101-111) mmol/L Carbon Dioxide (22-32) mmol/L Anion Gap (2-11) mmol/L BUN (6-24) mg/dL Creatinine (0.51-0.95) mg/dL Est GFR ( Amer) (>60) Est GFR (Non-Af Amer) (>60) BUN/Creatinine Ratio (8-20) Glucose (70-100) mg/dL Lactic Acid 1.2 (0.5-2.0) mmol/L Calcium (8.6-10.3) mg/dL Total Bilirubin (0.2-1.0) mg/dL AST ALT (7-52) U/L Alkaline Phosphatase (34-104) U/L Troponin I (<0.04) ng/mL C-Reactive Protein (< 5.00) mg/L B-Natriuretic Peptide 752 H ( - 100) pg/mL Total Protein (6.4-8.9) g/dL Albumin (3.2-5.2) g/dL Globulin (2-4) g/dL Albumin/Globulin Ratio (1-3) Procalcitonin 0.1 (<0.6) ng/mL Blood Type Antibody Screen 09/08/17 09/08/17 09/08/17 Range/Units 13:00 15:58 18:16 WBC (3.5-10.8) 10^3/ul RBC (4.0-5.4) 10^6/ul Hgb (12.0-16.0) g/dl Hct (35-47) % MCV (80-97) fL MCH (27-31) pg MCHC (31-36) g/dl RDW (10.5-15) % Plt Count (150-450) 10^3/ul MPV (7.4-10.4) um3 Neut % (Auto) (38-83) % Lymph % (Auto) (25-47) % [place] % (Auto) (0-7) % Eos % (Auto) (0-6) % Baso % (Auto) (0-2) % Absolute Neuts (auto) (1.5-7.7) 10^3/ul Absolute Lymphs (auto) (1.0-4.8) 10^3/ul Absolute Monos (auto) (0-0.8) 10^3/ul Absolute Eos (auto) (0-0.6) 10^3/ul Absolute Basos (auto) (0-0.2) 10^3/ul Absolute Nucleated RBC 10^3/ul Nucleated RBC % ESR 97 H INR (Anticoag Therapy) (0.77-1.02) APTT (26.0-36.3) seconds Sodium (139-145) mmol/L Potassium Chloride (101-111) mmol/L Carbon Dioxide (22-32) mmol/L Anion Gap (2-11) mmol/L BUN (6-24) mg/dL Creatinine (0.51-0.95) mg/dL Est GFR ( Amer) (>60) Est GFR (Non-Af Amer) (>60) BUN/Creatinine Ratio (8-20) Glucose (70-100) mg/dL Lactic Acid 0.8 (0.5-2.0) mmol/L Calcium (8.6-10.3) mg/dL Total Bilirubin (0.2-1.0) mg/dL AST ALT (7-52) U/L Alkaline Phosphatase (34-104) U/L Troponin I (<0.04) ng/mL C-Reactive Protein (< 5.00) mg/L B-Natriuretic Peptide ( - 100) pg/mL Total Protein (6.4-8.9) g/dL Albumin (3.2-5.2) g/dL Globulin (2-4) g/dL Albumin/Globulin Ratio (1-3) Procalcitonin (<0.6) ng/mL Blood Type A Negative Antibody Screen Negative Assess/Plan/Problems-Billing Assessment: Mrs. Ziegler is a 66yo F with PMH of obesity, Afib, COPD on home O2 2 liters/ min, PVF, GERD, diastolic CHF with EF 55%, chronic pain, HTN, DVT, PE, RYAN, diabetes, bowel obstruction requiring colostomy, CAD s/p CABG, s/p AVR (porcine) , HLD, hypothyroidism, who presented to ED with c/o weakness and malaise, found to have a large LLQ mass. - Patient Problems (1) Abdominal mass, left lower quadrant Current Visit: Yes Status: Resolved Code(s): R19.04 - LEFT LOWER QUADRANT ABDOMINAL SWELLING, MASS AND LUMP SNOMED Code(s): 911437548 Comment: --CT showed a large mass on the LLQ with prominent surrounding interstitial stranding which may represent a phlegmonous process. No evidence of obstuction --continue ceftriaxone 2gm IV daily/flagyl 500 mg IV Q8hrs; CBC, CMP, CRP weekly and follow up CT scan 3 weeks as long as otherwise improving --ID following (2) Atrial fibrillation Current Visit: Yes Status: Acute Code(s): I48.91 - UNSPECIFIED ATRIAL FIBRILLATION SNOMED Code(s): 15695652 Comment: --Now rate controlled --Given exertional tachycardia will increase Metoprolol succinate to 75 mg PO qday and will continue watchful waiting --Dr. Weeks increased digoxin in AM and sd defer --No AC due to recent GI bleed--previously discussed. (3) COPD (chronic obstructive pulmonary disease) Current Visit: Yes Status: Acute Code(s): J44.9 - CHRONIC OBSTRUCTIVE PULMONARY DISEASE, UNSPECIFIED SNOMED Code(s): 23336644 Comment: no exacerbation (4) Hydronephrosis Current Visit: Yes Comment: --Spoke with Dr. Pérez of Urology --To obtain CT of abdomen and pelvis with contrast --IVF --Dr. Pérez to see in AM (5) Diabetes Current Visit: Yes Status: Acute Code(s): E11.9 - TYPE 2 DIABETES MELLITUS WITHOUT COMPLICATIONS SNOMED Code(s): 32195901 Comment: - Continue Lantus and Lispro SS. Status and Disposition: --Will await CT result and any further rcommendations with Dr. Pérez
[2017-09-18] MEDS ORDERED: NS 0.9% 1000 ML* 1,000 ML IV SCH (16:45)
[2017-09-18] MEDS: Insulin GLARGINE(*) 1 UNITS UNIT SUBCUT SCH (18:12)
[2017-09-18] MEDS: predniSONE TAB* 50 MG PO SCH ×2 (18:12→23:59)
[2017-09-18] MEDS: traZODone TAB* 100 MG PO SCH (20:04)
[2017-09-18] MEDS: Pregabalin CAP(*) 50 MG PO SCH (20:04)
[2017-09-18] MEDS: Mometasone 220 MCG MDI INH SCH (21:17)
[2017-09-19] MEDS: metroNIDAZOLE IV 500 MG/100ML* 500 MG/100 ML BAG IVPB SCH ×3 (03:46→20:55)
[2017-09-19] MEDS: Heparin VIAL(*) 5000 UNITS/ML VIAL (FIVE THOUSAND) SUBCUT SCH ×3 (05:59→21:03)
[2017-09-19] MEDS: Levothyroxine TAB* 100 MCG TAB PO SCH (06:00)
[2017-09-19] MEDS: Diltiazem CD CAP* 240 MG PO SCH (06:04)
[2017-09-19] MEDS: Metoprolol Succinate XL TAB* 25 MG PO SCH (06:05)
[2017-09-19] MEDS ORDERED: diPHENhydraMINE PO* 50 MG PO ONE (07:00)
[2017-09-19] MEDS ORDERED: predniSONE TAB* 50 MG PO ONE (07:00)
[2017-09-19] MEDS ORDERED: Iodixanol* (CONTRAST) 320 MG/ML 100 ML SDV IV ONE (07:13)
[2017-09-19] MEDS: Tiotropium CAP.INH* CAP.INH/18 MCG (USE ORDER SET !) INH SCH (08:06)
[2017-09-19] MEDS: cefTRIAXone(*) 2 GM in NS 0.9% 100 ML* 100 ML IVPB SCH (09:27)
[2017-09-19] MEDS: Atorvastatin* 80 MG TAB PO SCH (09:28)
[2017-09-19] MEDS: Digoxin TAB* 0.125 MG PO SCH (09:28)
[2017-09-19] MEDS: Digoxin TAB* 0.25 MG PO SCH (09:28)
[2017-09-19] MEDS: Sertraline* 100 MG TAB PO SCH (09:29)
[2017-09-19] MEDS: Insulin LISPRO* 1 UNITS UNIT SUBCUT SCH ×4 (09:29→21:43)
[2017-09-19] MEDS: Aspirin EC TAB* 81 MG TAB.EC PO SCH (09:29)
--- NOTE | 2017-09-19 09:57 | RAD ---
INDICATION: Abdominal abscess, follow-up. COMPARISON: Comparison is made with prior CTs of the abdomen and pelvis from September 08, 2017 and September 12, 2017. TECHNIQUE: A CT scan of the abdomen and pelvis was performed with intravenous and oral contrast following intravenous injection of 141 ml of Visipaque 320 nonionic contrast. Contiguous axial sections were obtained from the lung bases through the symphysis pubis. Images were reconstructed in the coronal and sagittal planes. FINDINGS: There are small bilateral pleural effusions and a small dependent left lower lobe infiltrate which appear unchanged. The liver and spleen are normal in size. The liver is decreased in attenuation consistent with fatty infiltration. No significant focal abnormality is seen. The patient is status post cholecystectomy. The pancreas appears to be within normal limits. The adrenal glands appear to be within normal limits. The kidneys are normal in size without significant focal abnormality. There is mild left hydronephrosis which has improved from the prior study. The aorta is normal in caliber with moderate calcific plaque present. There are mildly enlarged retroperitoneal lymph nodes present in the left periaortic region measuring up to 1 cm transverse dimension which appear unchanged. The stomach, small and large bowel appear nondistended. There is a large ventral anterior abdominal wall hernia containing small and large bowel which is unchanged. There is a mass in the left lower quadrant adjacent to the sigmoid colon which has decreased in size from the prior exam measuring 3.6 x 4.0 x 3.8 cm in size and previously measured 4.4 x 4.8 x 4.8 cm in size. This is heterogeneous in density with stranding in the adjacent mesenteric fat. The uterus is anteverted and normal in size. No free intraperitoneal air or fluid is seen. The patient is status post total left hip replacement surgery. There is moderate to severe osteoarthritic change in the right hip. No significant focal osseous abnormality is seen. IMPRESSION: 1. SMALL BILATERAL PLEURAL EFFUSIONS AND DEPENDENT LEFT LOWER LOBE INFILTRATE, UNCHANGED. 2. LEFT LOWER QUADRANT MASS ADJACENT TO THE SIGMOID COLON SLIGHTLY DECREASED IN SIZE DESCRIBED. DIFFERENTIAL DIAGNOSIS WOULD INCLUDE PHLEGMONOUS PROCESS, EARLY ABSCESS, LESS LIKELY NEOPLASTIC PROCESS. RECOMMEND CONTINUED FOLLOW-UP. 3. LARGE VENTRAL HERNIA, UNCHANGED. 4. MILD LEFT HYDRONEPHROSIS SLIGHTLY IMPROVED.
[2017-09-19] MEDS: Ezetimibe TAB* 10 MG PO SCH (10:01)
--- NOTE | 2017-09-19 17:31 | PN ---
Subjective Date of Service: 09/19/17 Interval History: Pt seen and examined. Meds and labs reviewed. Spoke with Dr. sU this AM and upon review of CT, mentions that both abd mass and left hydronephrosis has improved likely suggesting that lesions are infectious in etiology ROS: Denied HOWE/dizziness, F/C, N/V, CP, SOB, increased cough, sputum production , abd pain, diarrhea, constipation, dysuria, myalgias, arthralgias, throat pain , and new skin lesions. The rest of the 14 point ROS are unremarkable. PHYSICAL EXAM: GEN APPEARANCE: Awake, not in acute distress HEENT: NC/AT, PERRLA, moist oral mucosa, (-) throat erythema NECK: Soft, supple, (-) cervical LAD, (-)JVD HEART: S1S2 WNL, RRR, No MRG CHEST: CTA, BL, GAE, No W/R/R ABD: Soft, ND/NT, NABS 4x Q EXT: No C/C/+1BLLE SKIN: Warm to touch PSYCH: No active psychosis, hallucinations, depression, SI/HI Family History: Unchanged from Admission Social History: Unchanged from Admission Past Medical History: Unchanged from Admission Objective Active Medications: Acetaminophen (Tylenol Tab*) 650 mg PO Q4H PRN PRN Reason: FEVER/PAIN Last Admin: 09/14/17 07:55 Dose: 650 mg Albuterol (Ventolin Hfa Inhaler*) 2 puff INH Q4H PRN PRN Reason: SOB/WHEEZING Aspirin (Aspirin Ec Tab*) 81 mg PO DAILY [facility] Last Admin: 09/19/17 09:29 Dose: 81 mg Atorvastatin Calcium (Lipitor*) 80 mg PO DAILY [facility] Last Admin: 09/19/17 09:28 Dose: 80 mg Dextrose (D50w Syringe 50 Ml*) 12.5 gm IV PUSH .FOR FS < 60 - SS PRN PRN Reason: FS < 60 Digoxin (Lanoxin Tab*) 0.125 mg PO DAILY [facility] Last Admin: 09/19/17 09:28 Dose: 0.125 mg Digoxin (Lanoxin Tab*) 0.25 mg PO DAILY [facility] Last Admin: 09/19/17 09:28 Dose: 0.25 mg Diltiazem HCl (Cardizem Cd Cap*) 240 mg PO 0600 [facility] Last Admin: 09/19/17 06:04 Dose: 240 mg Ezetimibe (Zetia Tab*) 10 mg PO DAILY [facility] Last Admin: 09/19/17 10:01 Dose: 10 mg Heparin Sodium (Porcine) (Heparin Vial(*)) 5,000 units SUBCUT Q8HR [facility] Last Admin: 09/19/17 13:55 Dose: 5,000 units Heparin Sodium (Porcine) (Heparin Flush Picc/Ml/Cvc(*)) 1 ml FLUSH 0600,1800 [facility] PRN Reason: Protocol Last Admin: 09/19/17 14:01 Dose: 1 ml Metronidazole/Sodium Chloride (Flagyl 500 Mg Ivpb*) 500 mg in 100 mls @ 100 mls /hr IVPB Q8H [facility] Last Admin: 09/19/17 12:05 Dose: 100 mls/hr Ceftriaxone Sodium 2 gm/ (Sodium Chloride) 100 mls @ 200 mls/hr IVPB Q24H [facility] Last Admin: 09/19/17 09:27 Dose: 200 mls/hr Insulin Glargine (Lantus(*)) 10 units SUBCUT Q24H [facility] Last Admin: 09/18/17 18:12 Dose: 10 units Insulin Human Lispro (Humalog*) 0 units SUBCUT ACHS [facility] PRN Reason: Protocol Last Admin: 09/19/17 12:04 Dose: 9 units Levothyroxine Sodium (Synthroid Tab*) 200 mcg PO DAILY@0600 [facility] Last Admin: 09/19/17 06:00 Dose: 200 mcg Metoprolol Succinate (Toprol Xl Tab*) 75 mg PO DAILY@0600 [facility] Last Admin: 09/19/17 06:05 Dose: 75 mg Metoprolol Tartrate (Lopressor Iv*) 5 mg IV Q6H PRN PRN Reason: BLOOD PRESSURE Last Admin: 09/16/17 14:32 Dose: 5 mg Mometasone Furoate (Asmanex 220 Mcg Mdi *) 1 puff INH BEDTIME [facility] Last Admin: 09/18/17 21:17 Dose: 1 puff Ondansetron HCl (Zofran Inj*) 4 mg IV Q6H PRN PRN Reason: NAUSEA Last Admin: 09/11/17 15:19 Dose: 4 mg Pregabalin (Lyrica Cap(*)) 50 mg PO BEDTIME [facility] Last Admin: 09/18/17 20:04 Dose: 50 mg Sertraline HCl (Zoloft*) 200 mg PO DAILY [facility] Last Admin: 09/19/17 09:29 Dose: 200 mg Tiotropium [place] (Spiriva Cap.Inh*) 1 cap INH DAILY [facility] Last Admin: 09/19/17 08:06 Dose: 1 cap.inh Tramadol HCl (Ultram*) 50 mg PO Q12H PRN PRN Reason: PAIN Last Admin: 09/14/17 15:56 Dose: 50 mg Trazodone HCl (Desyrel Tab*) 100 mg PO BEDTIME [facility] Last Admin: 09/18/17 20:04 Dose: 100 mg Vital Signs - 8 hr 09/19/17 09/19/17 09/19/17 10:34 12:05 13:19 Temperature 97.4 F Pulse Rate 78 Respiratory 18 18 19 Rate Blood Pressure 108/61 (mmHg) O2 Sat by Pulse 100 Oximetry 09/19/17 15:36 Temperature 98.6 F Pulse Rate 98 Respiratory 16 Rate Blood Pressure 122/68 (mmHg) O2 Sat by Pulse 98 Oximetry Oxygen Devices in Use Now: Nasal Cannula Result Diagrams: 09/18/17 06:19 09/18/17 06:19 Additional Lab and Data: Lab Results 09/08/17 09/08/17 09/08/17 Range/Units 12:20 12:20 12:20 WBC 12.7 H (3.5-10.8) 10^3/ul RBC 3.61 L (4.0-5.4) 10^6/ul Hgb 9.6 L (12.0-16.0) g/dl Hct 31 L (35-47) % MCV 85 (80-97) fL MCH 27 (27-31) pg MCHC 31 (31-36) g/dl RDW 18 H (10.5-15) % Plt Count 303 (150-450) 10^3/ul MPV 8.3 (7.4-10.4) um3 Neut % (Auto) 79.4 (38-83) % Lymph % (Auto) 11.1 L (25-47) % [place] % (Auto) 8.7 H (0-7) % Eos % (Auto) 0.4 (0-6) % Baso % (Auto) 0.4 (0-2) % Absolute Neuts (auto) 10.1 H (1.5-7.7) 10^3/ul Absolute Lymphs (auto) 1.4 (1.0-4.8) 10^3/ul Absolute Monos (auto) 1.1 H (0-0.8) 10^3/ul Absolute Eos (auto) 0.1 (0-0.6) 10^3/ul Absolute Basos (auto) 0 (0-0.2) 10^3/ul Absolute Nucleated RBC 0 10^3/ul Nucleated RBC % 0.2 ESR Cancelled INR (Anticoag Therapy) 1.35 H (0.77-1.02) APTT 26.2 (26.0-36.3) seconds Sodium 133 L (139-145) mmol/L Potassium TNP Chloride 101 (101-111) mmol/L Carbon Dioxide 25 (22-32) mmol/L Anion Gap 7 (2-11) mmol/L BUN 11 (6-24) mg/dL Creatinine 1.04 H (0.51-0.95) mg/dL Est GFR ( Amer) 68.2 (>60) Est GFR (Non-Af Amer) 53.0 (>60) BUN/Creatinine Ratio 10.6 (8-20) Glucose 103 H (70-100) mg/dL Lactic Acid (0.5-2.0) mmol/L Calcium 8.2 L (8.6-10.3) mg/dL Total Bilirubin 0.60 (0.2-1.0) mg/dL AST TNP ALT 20 (7-52) U/L Alkaline Phosphatase 69 (34-104) U/L Troponin I 0.02 (<0.04) ng/mL C-Reactive Protein 159.34 H (< 5.00) mg/L B-Natriuretic Peptide ( - 100) pg/mL Total Protein 7.0 (6.4-8.9) g/dL Albumin 2.6 L (3.2-5.2) g/dL Globulin 4.4 H (2-4) g/dL Albumin/Globulin Ratio 0.6 L (1-3) Procalcitonin (<0.6) ng/mL Blood Type Antibody Screen 09/08/17 09/08/17 09/08/17 Range/Units 12:20 13:00 13:00 WBC (3.5-10.8) 10^3/ul RBC (4.0-5.4) 10^6/ul Hgb (12.0-16.0) g/dl Hct (35-47) % MCV (80-97) fL MCH (27-31) pg MCHC (31-36) g/dl RDW (10.5-15) % Plt Count (150-450) 10^3/ul MPV (7.4-10.4) um3 Neut % (Auto) (38-83) % Lymph % (Auto) (25-47) % [place] % (Auto) (0-7) % Eos % (Auto) (0-6) % Baso % (Auto) (0-2) % Absolute Neuts (auto) (1.5-7.7) 10^3/ul Absolute Lymphs (auto) (1.0-4.8) 10^3/ul Absolute Monos (auto) (0-0.8) 10^3/ul Absolute Eos (auto) (0-0.6) 10^3/ul Absolute Basos (auto) (0-0.2) 10^3/ul Absolute Nucleated RBC 10^3/ul Nucleated RBC % ESR INR (Anticoag Therapy) (0.77-1.02) APTT (26.0-36.3) seconds Sodium (139-145) mmol/L Potassium Chloride (101-111) mmol/L Carbon Dioxide (22-32) mmol/L Anion Gap (2-11) mmol/L BUN (6-24) mg/dL Creatinine (0.51-0.95) mg/dL Est GFR ( Amer) (>60) Est GFR (Non-Af Amer) (>60) BUN/Creatinine Ratio (8-20) Glucose (70-100) mg/dL Lactic Acid 1.2 (0.5-2.0) mmol/L Calcium (8.6-10.3) mg/dL Total Bilirubin (0.2-1.0) mg/dL AST ALT (7-52) U/L Alkaline Phosphatase (34-104) U/L Troponin I (<0.04) ng/mL C-Reactive Protein (< 5.00) mg/L B-Natriuretic Peptide 752 H ( - 100) pg/mL Total Protein (6.4-8.9) g/dL Albumin (3.2-5.2) g/dL Globulin (2-4) g/dL Albumin/Globulin Ratio (1-3) Procalcitonin 0.1 (<0.6) ng/mL Blood Type Antibody Screen 09/08/17 09/08/17 09/08/17 Range/Units 13:00 15:58 18:16 WBC (3.5-10.8) 10^3/ul RBC (4.0-5.4) 10^6/ul Hgb (12.0-16.0) g/dl Hct (35-47) % MCV (80-97) fL MCH (27-31) pg MCHC (31-36) g/dl RDW (10.5-15) % Plt Count (150-450) 10^3/ul MPV (7.4-10.4) um3 Neut % (Auto) (38-83) % Lymph % (Auto) (25-47) % [place] % (Auto) (0-7) % Eos % (Auto) (0-6) % Baso % (Auto) (0-2) % Absolute Neuts (auto) (1.5-7.7) 10^3/ul Absolute Lymphs (auto) (1.0-4.8) 10^3/ul Absolute Monos (auto) (0-0.8) 10^3/ul Absolute Eos (auto) (0-0.6) 10^3/ul Absolute Basos (auto) (0-0.2) 10^3/ul Absolute Nucleated RBC 10^3/ul Nucleated RBC % ESR 97 H INR (Anticoag Therapy) (0.77-1.02) APTT (26.0-36.3) seconds Sodium (139-145) mmol/L Potassium Chloride (101-111) mmol/L Carbon Dioxide (22-32) mmol/L Anion Gap (2-11) mmol/L BUN (6-24) mg/dL Creatinine (0.51-0.95) mg/dL Est GFR ( Amer) (>60) Est GFR (Non-Af Amer) (>60) BUN/Creatinine Ratio (8-20) Glucose (70-100) mg/dL Lactic Acid 0.8 (0.5-2.0) mmol/L Calcium (8.6-10.3) mg/dL Total Bilirubin (0.2-1.0) mg/dL AST ALT (7-52) U/L Alkaline Phosphatase (34-104) U/L Troponin I (<0.04) ng/mL C-Reactive Protein (< 5.00) mg/L B-Natriuretic Peptide ( - 100) pg/mL Total Protein (6.4-8.9) g/dL Albumin (3.2-5.2) g/dL Globulin (2-4) g/dL Albumin/Globulin Ratio (1-3) Procalcitonin (<0.6) ng/mL Blood Type A Negative Antibody Screen Negative Assess/Plan/Problems-Billing Assessment: Mrs. Ziegler is a 66yo F with PMH of obesity, Afib, COPD on home O2 2 liters/ min, PVF, GERD, diastolic CHF with EF 55%, chronic pain, HTN, DVT, PE, RYAN, diabetes, bowel obstruction requiring colostomy, CAD s/p CABG, s/p AVR (porcine) , HLD, hypothyroidism, who presented to ED with c/o weakness and malaise, found to have a large LLQ mass. - Patient Problems (1) Abdominal mass, left lower quadrant Current Visit: Yes Status: Resolved Code(s): R19.04 - LEFT LOWER QUADRANT ABDOMINAL SWELLING, MASS AND LUMP SNOMED Code(s): 838650027 Comment: - Given improvement of abd mass and left mild hydronephrosis, likely points to infectious etiology --CT showed a large mass on the LLQ with prominent surrounding interstitial stranding which may represent a phlegmonous process. No evidence of obstuction --continue ceftriaxone 2gm IV daily/flagyl 500 mg IV Q8hrs; CBC, CMP, CRP weekly and follow up CT scan 3 weeks as long as otherwise improving --ID following (2) Atrial fibrillation Current Visit: Yes Status: Acute Code(s): I48.91 - UNSPECIFIED ATRIAL FIBRILLATION SNOMED Code(s): 56320216 Comment: --Now rate controlled --Continue current Metoprolol dose --No AC due to recent GI bleed--previously discussed. (3) COPD (chronic obstructive pulmonary disease) Current Visit: Yes Status: Acute Code(s): J44.9 - CHRONIC OBSTRUCTIVE PULMONARY DISEASE, UNSPECIFIED SNOMED Code(s): 51183499 Comment: no exacerbation (4) Hydronephrosis Current Visit: Yes Comment: --Spoke with Dr. Us of Urology --Likely due to an infectious lesion given clinical improvement and improvement of lesion on re-imaging; per Dr. Us, unlikely to benefit from ureteral stent --To obtain CT of abdomen and pelvis with contrast --IVF --Dr. Pérez to see in AM (5) Diabetes Current Visit: Yes Status: Acute Code(s): E11.9 - TYPE 2 DIABETES MELLITUS WITHOUT COMPLICATIONS SNOMED Code(s): 63093925 Comment: - Continue Lantus and Lispro SS. Status and Disposition: --For possible D/C to home in AM without needs
[2017-09-19] MEDS: Insulin GLARGINE(*) 1 UNITS UNIT SUBCUT SCH (18:08)
--- NOTE | 2017-09-19 18:45 | CONS ---
CC: Dr. Simons * UROLOGY CONSULTATION: DATE OF CONSULT: 09/19/17 REQUESTING PHYSICIAN: Dr. Sprague. DIAGNOSIS: Left hydronephrosis. HISTORY OF PRESENT ILLNESS: Mercy Ziegler is a 66-year-old lady with multiple medical issues who was admitted because of issues related to bleeding from her colostomy site. She also at some point during this admission (which was over 10 days ago) was noted on a CT scan to have what appears to be a phlegmon in the left lower quadrant possibly related to an inflammatory process related to her colon. It appeared that this was causing left hydronephrosis, which was seen on an initial CT on admission and also on a followup CT. She has not had any complaints of left flank pain and followup CT done earlier today actually revealed improvement in the left hydronephrosis. PAST MEDICAL HISTORY: Significant for: 1. Atrial fibrillation. 2. COPD. 3. Peripheral vascular disease. 4. Chronic respiratory failure requiring oxygen. 5. Hypertension. 6. History of deep venous thrombosis and pulmonary embolism. 7. Diabetes mellitus. 8. History of bowel obstruction requiring urgent loop colostomy. 9. Coronary artery disease. 10. Hyperlipidemia. PAST SURGICAL HISTORY: Significant for: 1. Transverse loop colostomy. 2. Aortic valve replacement (bioprosthetic). 3. Coronary artery bypass graft. 4. Appendectomy. 5. Cholecystectomy. MEDICATIONS ON ADMISSION: 1. Metformin 500 mg b.i.d. 2. Spiriva 1 capsule inhaled daily. 3. Zoloft 200 mg a day. 4. Aldactone 25 mg a day. 5. Trazodone 100 mg q.h.s. 6. Lopressor 100 mg a day. 7. Lyrica 50 mg at bedtime. 8. Synthroid 200 mcg daily. 9. Zetia 10 mg daily. 10. Diltiazem 240 mg daily. 11. Flovent 2 puffs twice a day inhalations. 12. Aspirin 81 mg daily. 13. Lipitor 80 mg daily. 14. Xanax 0.25 three times a day p.r.n. 15. Ventolin 2 puffs every 4 hours as needed inhalation. ALLERGIES AND INTOLERANCES: SHELLFISH, CELEBREX, and INTRAVENOUSLY ADMINISTERED IODINATED CONTRAST. PHYSICAL EXAMINATION: On examination, she is a pleasant elderly overweight lady who is comfortably sitting in bed. Blood pressure is 122/68, pulse 98 per minute, respiratory rate 16 per minute, temperature 98.6. On examination, she has a large ventral hernia and a functioning colostomy. There is no flank tenderness. LABORATORY DATA: Review of her most recent lab values reveals a white count of 12.1, hemoglobin and hematocrit are 8.9 and 28 which are stable and platelet count is 251. Her most recent BUN and creatinine are normal at 12 and 0.76. Her most recent urine culture on 09/09/17 grew streptococcus and a urine culture also was positive for legionella. IMAGING STUDIES: I reviewed the imaging studies including the CT scan done on 09/09/[address] scan done on 09/12/17 and then the most recent CT scan, which was done today on 09/19/17. The most recent CT scan done today shows the left lower quadrant mass adjacent to the sigmoid colon appears to have decreased in size and mild left hydronephrosis, which is improved compared to the prior 2 CT scans. IMPRESSION AND PLAN: I had a detailed discussion with Ms. Ziegler regarding the findings of left hydronephrosis due to the phlegmon in the left lower quadrant and the fact that the hydronephrosis appears to be improving. I would recommend holding off on her left stent insertion at the present time, but I would recommend close followup and a repeat imaging study, either an ultrasound or another CT scan to be done within about a week to confirm continued resolution of the hydronephrosis. If there is any worsening of the hydronephrosis, I would like to be reconsulted so that I can then place a left stent if needed. [id number]/CPS #: [id number] SERENA
[2017-09-19] MEDS: Mometasone 220 MCG MDI INH SCH (20:16)
[2017-09-19] MEDS: traZODone TAB* 100 MG PO SCH (21:01)
[2017-09-19] MEDS: Pregabalin CAP(*) 50 MG PO SCH (21:01)
[2017-09-20] MEDS: metroNIDAZOLE IV 500 MG/100ML* 500 MG/100 ML BAG IVPB SCH ×2 (05:03→11:48)
[2017-09-20] MEDS: Metoprolol Succinate XL TAB* 25 MG PO SCH (05:09)
[2017-09-20] MEDS: Diltiazem CD CAP* 240 MG PO SCH (05:09)
[2017-09-20] MEDS: Levothyroxine TAB* 100 MCG TAB PO SCH (05:10)
[2017-09-20] MEDS: Heparin VIAL(*) 5000 UNITS/ML VIAL (FIVE THOUSAND) SUBCUT SCH ×3 (05:11→21:16)
[2017-09-20] MEDS: Atorvastatin* 80 MG TAB PO SCH (08:46)
[2017-09-20] MEDS: Digoxin TAB* 0.25 MG PO SCH (08:46)
[2017-09-20] MEDS: Sertraline* 100 MG TAB PO SCH (08:46)
[2017-09-20] MEDS: Ezetimibe TAB* 10 MG PO SCH (08:46)
[2017-09-20] MEDS: Insulin LISPRO* 1 UNITS UNIT SUBCUT SCH ×4 (08:46→21:16)
[2017-09-20] MEDS: Aspirin EC TAB* 81 MG TAB.EC PO SCH (08:46)
[2017-09-20] MEDS: Tiotropium CAP.INH* CAP.INH/18 MCG (USE ORDER SET !) INH SCH (08:52)
[2017-09-20] MEDS: cefTRIAXone(*) 2 GM in NS 0.9% 100 ML* 100 ML IVPB SCH (10:00)
[2017-09-20] MEDS ORDERED: Furosemide IV* 10 MG/ML VIAL (40 MG) IV SLOW PU ONE (11:23)
--- NOTE | 2017-09-20 13:37 | PN ---
Progress Note - Progress Note Date of Service: 09/20/17 SOAP: Subjective: CC: abd pain HPI: 66 year old woman with colostomy and left flank pain, malaise, chills, anorexia; CT showed inflammatory mass in abdomen adjacent to bowel. Left flank pain comes and goes, overall improving. No fever, rash, or diarrhea. Objective: Vital Signs Temp 36.7 C 09/20/17 07:35 Pulse 80 09/20/17 08:53 Resp 14 09/20/17 08:53 BP 107/51 09/20/17 07:35 Pulse Ox 98 09/20/17 08:53 Intake & Output 09/19/17 09/20/17 09/20/17 18:59 06:59 18:59 Intake Total 2160 840 940 Output Total 500 1775 700 Balance 1660 -935 240 Weight 254 lb 11.2 oz Intake: IV Fluids 50 ABX - FLAGYL 50 IVPB 150 ABX - FLAGYL 150 Oral 2160 640 940 Output: Urine 100 1350 700 Colostomy 400 425 Other: Estimated Void Small # Bowel Movements 1 Estimated Stool Amount Small # Voids 1 Gen:awake, no distress HEENT:PERRL, no thrush Heart:RRR no murmur Lungs:CTA BL Abd:+BS NTND soft Skin: no thrush Laboratory Results - last 24 hr 09/19/17 09/19/17 09/19/17 16:57 17:06 20:42 POC Glucose (mg/dL) 71 309 H 133 H C-Reactive Protein 09/20/17 09/20/17 09/20/17 07:48 11:48 12:03 POC Glucose (mg/dL) 161 H 170 H C-Reactive Protein 12.97 H Assessment: 1. LLQ intra-abdominal abscess due to diverticular disease; CRP elevated and improving on antibiotics 2. mild left hydronephrosis on CT 3. morbid obesity 4. COPD 5. CAD s/p CAB Plan: 1. continue ceftriaxone 2gm IV daily/flagyl 500 mg PO Q12hrs day ; CBC, CMP , CRP weekly and follow up CT scan 3 weeks as long as otherwise improving FU with me 1-[address] Ontiveros
--- NOTE | 2017-09-20 16:47 | PN ---
Subjective Date of Service: 09/20/17 Interval History: No overnight events, feels good today. Only complaint is right leg swelling. Abdominal pain is improving, tolerating full diet, bowel movements are normal via ostomy. Afebrile. Midline replaced and working well. Family History: Unchanged from Admission Social History: Unchanged from Admission Past Medical History: Unchanged from Admission Objective Active Medications: Acetaminophen (Tylenol Tab*) 650 mg PO Q4H PRN PRN Reason: FEVER/PAIN Last Admin: 09/14/17 07:55 Dose: 650 mg Albuterol (Ventolin Hfa Inhaler*) 2 puff INH Q4H PRN PRN Reason: SOB/WHEEZING Aspirin (Aspirin Ec Tab*) 81 mg PO DAILY [facility] Last Admin: 09/20/17 08:46 Dose: 81 mg Atorvastatin Calcium (Lipitor*) 80 mg PO DAILY [facility] Last Admin: 09/20/17 08:46 Dose: 80 mg Dextrose (D50w Syringe 50 Ml*) 12.5 gm IV PUSH .FOR FS < 60 - SS PRN PRN Reason: FS < 60 Digoxin (Lanoxin Tab*) 0.25 mg PO DAILY [facility] Last Admin: 09/20/17 08:46 Dose: 0.25 mg Diltiazem HCl (Cardizem Cd Cap*) 240 mg PO 0600 [facility] Last Admin: 09/20/17 05:09 Dose: 240 mg Ezetimibe (Zetia Tab*) 10 mg PO DAILY [facility] Last Admin: 09/20/17 08:46 Dose: 10 mg Furosemide (Lasix Iv*) 40 mg IV SLOW PU 0800,1700 [facility] Heparin Sodium (Porcine) (Heparin Vial(*)) 5,000 units SUBCUT Q8HR [facility] Last Admin: 09/20/17 13:05 Dose: 5,000 units Heparin Sodium (Porcine) (Heparin Flush Picc/Ml/Cvc(*)) 1 ml FLUSH 0600,1800 JL PRN Reason: Protocol Last Admin: 09/20/17 06:27 Dose: 1 ml Ceftriaxone Sodium 2 gm/ (Sodium Chloride) 100 mls @ 200 mls/hr IVPB Q24H [facility] Last Admin: 09/20/17 10:00 Dose: 200 mls/hr Insulin Glargine (Lantus(*)) 10 units SUBCUT Q24H [facility] Last Admin: 09/19/17 18:08 Dose: 10 units Insulin Human Lispro (Humalog*) 0 units SUBCUT ACHS JL PRN Reason: Protocol Last Admin: 09/20/17 13:05 Dose: 3 units Levothyroxine Sodium (Synthroid Tab*) 200 mcg PO DAILY@0600 [facility] Last Admin: 09/20/17 05:10 Dose: 200 mcg Metoprolol Succinate (Toprol Xl Tab*) 75 mg PO DAILY@0600 [facility] Last Admin: 09/20/17 05:09 Dose: 75 mg Metoprolol Tartrate (Lopressor Iv*) 5 mg IV Q6H PRN PRN Reason: BLOOD PRESSURE Last Admin: 09/16/17 14:32 Dose: 5 mg Metronidazole (Flagyl Tab*) 500 mg PO BID [facility] Mometasone Furoate (Asmanex 220 Mcg Mdi *) 1 puff INH BEDTIME [facility] Last Admin: 09/19/17 20:16 Dose: 1 puff Ondansetron HCl (Zofran Inj*) 4 mg IV Q6H PRN PRN Reason: NAUSEA Last Admin: 09/11/17 15:19 Dose: 4 mg Pregabalin (Lyrica Cap(*)) 50 mg PO BEDTIME [facility] Last Admin: 09/19/17 21:01 Dose: 50 mg Sertraline HCl (Zoloft*) 200 mg PO DAILY [facility] Last Admin: 09/20/17 08:46 Dose: 200 mg Tiotropium [place] (Spiriva Cap.Inh*) 1 cap INH DAILY [facility] Last Admin: 09/20/17 08:52 Dose: 1 cap.inh Tramadol HCl (Ultram*) 50 mg PO Q12H PRN PRN Reason: PAIN Last Admin: 09/14/17 15:56 Dose: 50 mg Trazodone HCl (Desyrel Tab*) 100 mg PO BEDTIME [facility] Last Admin: 09/19/17 21:01 Dose: 100 mg Vital Signs - 8 hr 09/20/17 09/20/17 09/20/17 08:53 10:53 15:09 Temperature 97.3 F 97.6 F Pulse Rate 80 69 39 Respiratory 14 18 20 Rate Blood Pressure 120/53 102/51 (mmHg) O2 Sat by Pulse 98 100 100 Oximetry 09/20/17 15:45 Temperature Pulse Rate 79 Respiratory Rate Blood Pressure (mmHg) O2 Sat by Pulse Oximetry Oxygen Devices in Use Now: Nasal Cannula Appearance: alert, sitting up in chair, nontoxic appearing Eyes: No Scleral Icterus Ears/Nose/Mouth/Throat: NL Teeth, Lips, Gums Neck: - - + JVP Respiratory: Symmetrical Chest Expansion and Respiratory Effort, Clear to Auscultation Cardiovascular: - - irregular rhythm, sternotomy well healed Abdominal: - - left-sided ostomy, tenderness to palpation LLQ Lymphatic: No Cervical Adenopathy Extremities: - - 3+ LE edema, R>L Skin: - - chronic venous stasis skin changes Neurological: Alert and Oriented x 3 Result Diagrams: 09/18/17 06:19 09/18/17 06:19 Additional Lab and Data: Lab Results 09/08/17 09/08/17 09/08/17 Range/Units 12:20 12:20 12:20 WBC 12.7 H (3.5-10.8) 10^3/ul RBC 3.61 L (4.0-5.4) 10^6/ul Hgb 9.6 L (12.0-16.0) g/dl Hct 31 L (35-47) % MCV 85 (80-97) fL MCH 27 (27-31) pg MCHC 31 (31-36) g/dl RDW 18 H (10.5-15) % Plt Count 303 (150-450) 10^3/ul MPV 8.3 (7.4-10.4) um3 Neut % (Auto) 79.4 (38-83) % Lymph % (Auto) 11.1 L (25-47) % [place] % (Auto) 8.7 H (0-7) % Eos % (Auto) 0.4 (0-6) % Baso % (Auto) 0.4 (0-2) % Absolute Neuts (auto) 10.1 H (1.5-7.7) 10^3/ul Absolute Lymphs (auto) 1.4 (1.0-4.8) 10^3/ul Absolute Monos (auto) 1.1 H (0-0.8) 10^3/ul Absolute Eos (auto) 0.1 (0-0.6) 10^3/ul Absolute Basos (auto) 0 (0-0.2) 10^3/ul Absolute Nucleated RBC 0 10^3/ul Nucleated RBC % 0.2 ESR Cancelled INR (Anticoag Therapy) 1.35 H (0.77-1.02) APTT 26.2 (26.0-36.3) seconds Sodium 133 L (139-145) mmol/L Potassium TNP Chloride 101 (101-111) mmol/L Carbon Dioxide 25 (22-32) mmol/L Anion Gap 7 (2-11) mmol/L BUN 11 (6-24) mg/dL Creatinine 1.04 H (0.51-0.95) mg/dL Est GFR ( Amer) 68.2 (>60) Est GFR (Non-Af Amer) 53.0 (>60) BUN/Creatinine Ratio 10.6 (8-20) Glucose 103 H (70-100) mg/dL Lactic Acid (0.5-2.0) mmol/L Calcium 8.2 L (8.6-10.3) mg/dL Total Bilirubin 0.60 (0.2-1.0) mg/dL AST TNP ALT 20 (7-52) U/L Alkaline Phosphatase 69 (34-104) U/L Troponin I 0.02 (<0.04) ng/mL C-Reactive Protein 159.34 H (< 5.00) mg/L B-Natriuretic Peptide ( - 100) pg/mL Total Protein 7.0 (6.4-8.9) g/dL Albumin 2.6 L (3.2-5.2) g/dL Globulin 4.4 H (2-4) g/dL Albumin/Globulin Ratio 0.6 L (1-3) Procalcitonin (<0.6) ng/mL Blood Type Antibody Screen 09/08/17 09/08/17 09/08/17 Range/Units 12:20 13:00 13:00 WBC (3.5-10.8) 10^3/ul RBC (4.0-5.4) 10^6/ul Hgb (12.0-16.0) g/dl Hct (35-47) % MCV (80-97) fL MCH (27-31) pg MCHC (31-36) g/dl RDW (10.5-15) % Plt Count (150-450) 10^3/ul MPV (7.4-10.4) um3 Neut % (Auto) (38-83) % Lymph % (Auto) (25-47) % [place] % (Auto) (0-7) % Eos % (Auto) (0-6) % Baso % (Auto) (0-2) % Absolute Neuts (auto) (1.5-7.7) 10^3/ul Absolute Lymphs (auto) (1.0-4.8) 10^3/ul Absolute Monos (auto) (0-0.8) 10^3/ul Absolute Eos (auto) (0-0.6) 10^3/ul Absolute Basos (auto) (0-0.2) 10^3/ul Absolute Nucleated RBC 10^3/ul Nucleated RBC % ESR INR (Anticoag Therapy) (0.77-1.02) APTT (26.0-36.3) seconds Sodium (139-145) mmol/L Potassium Chloride (101-111) mmol/L Carbon Dioxide (22-32) mmol/L Anion Gap (2-11) mmol/L BUN (6-24) mg/dL Creatinine (0.51-0.95) mg/dL Est GFR ( Amer) (>60) Est GFR (Non-Af Amer) (>60) BUN/Creatinine Ratio (8-20) Glucose (70-100) mg/dL Lactic Acid 1.2 (0.5-2.0) mmol/L Calcium (8.6-10.3) mg/dL Total Bilirubin (0.2-1.0) mg/dL AST ALT (7-52) U/L Alkaline Phosphatase (34-104) U/L Troponin I (<0.04) ng/mL C-Reactive Protein (< 5.00) mg/L B-Natriuretic Peptide 752 H ( - 100) pg/mL Total Protein (6.4-8.9) g/dL Albumin (3.2-5.2) g/dL Globulin (2-4) g/dL Albumin/Globulin Ratio (1-3) Procalcitonin 0.1 (<0.6) ng/mL Blood Type Antibody Screen 09/08/17 09/08/17 09/08/17 Range/Units 13:00 15:58 18:16 WBC (3.5-10.8) 10^3/ul RBC (4.0-5.4) 10^6/ul Hgb (12.0-16.0) g/dl Hct (35-47) % MCV (80-97) fL MCH (27-31) pg MCHC (31-36) g/dl RDW (10.5-15) % Plt Count (150-450) 10^3/ul MPV (7.4-10.4) um3 Neut % (Auto) (38-83) % Lymph % (Auto) (25-47) % [place] % (Auto) (0-7) % Eos % (Auto) (0-6) % Baso % (Auto) (0-2) % Absolute Neuts (auto) (1.5-7.7) 10^3/ul Absolute Lymphs (auto) (1.0-4.8) 10^3/ul Absolute Monos (auto) (0-0.8) 10^3/ul Absolute Eos (auto) (0-0.6) 10^3/ul Absolute Basos (auto) (0-0.2) 10^3/ul Absolute Nucleated RBC 10^3/ul Nucleated RBC % ESR 97 H INR (Anticoag Therapy) (0.77-1.02) APTT (26.0-36.3) seconds Sodium (139-145) mmol/L Potassium Chloride (101-111) mmol/L Carbon Dioxide (22-32) mmol/L Anion Gap (2-11) mmol/L BUN (6-24) mg/dL Creatinine (0.51-0.95) mg/dL Est GFR ( Amer) (>60) Est GFR (Non-Af Amer) (>60) BUN/Creatinine Ratio (8-20) Glucose (70-100) mg/dL Lactic Acid 0.8 (0.5-2.0) mmol/L Calcium (8.6-10.3) mg/dL Total Bilirubin (0.2-1.0) mg/dL AST ALT (7-52) U/L Alkaline Phosphatase (34-104) U/L Troponin I (<0.04) ng/mL C-Reactive Protein (< 5.00) mg/L B-Natriuretic Peptide ( - 100) pg/mL Total Protein (6.4-8.9) g/dL Albumin (3.2-5.2) g/dL Globulin (2-4) g/dL Albumin/Globulin Ratio (1-3) Procalcitonin (<0.6) ng/mL Blood Type A Negative Antibody Screen Negative Assess/Plan/Problems-Billing Assessment: Mrs. Ziegler is a 66yo F with PMH of obesity, Afib, COPD on home O2 2 liters/ min, PVF, GERD, diastolic CHF with EF 55%, chronic pain, HTN, DVT, PE, RYAN, diabetes, bowel obstruction requiring colostomy, CAD s/p CABG, s/p AVR (porcine) , HLD, hypothyroidism, who presented to ED with c/o weakness and malaise, found to have a large LLQ mass. - Patient Problems (1) Atrial fibrillation Current Visit: Yes Status: Acute Code(s): I48.91 - UNSPECIFIED ATRIAL FIBRILLATION SNOMED Code(s): 18218824 Comment: no AC due to recent GI bleed rate controlled on short-acting metoprolol; I will change this to long acting in anticipation of discharge soon (2) Abdominal mass, left lower quadrant Current Visit: Yes Status: Resolved Code(s): R19.04 - LEFT LOWER QUADRANT ABDOMINAL SWELLING, MASS AND LUMP SNOMED Code(s): 690943557 Comment: Improving on abx ID recommendations for abx: ceftriaxone 2g daily plus flagyl PO Plan for f/u CT in 3 weeks (3) COPD (chronic obstructive pulmonary disease) Current Visit: Yes Status: Acute Code(s): J44.9 - CHRONIC OBSTRUCTIVE PULMONARY DISEASE, UNSPECIFIED SNOMED Code(s): 04557950 Comment: no exacerbation (4) Diabetes Current Visit: Yes Status: Acute Code(s): E11.9 - TYPE 2 DIABETES MELLITUS WITHOUT COMPLICATIONS SNOMED Code(s): 04721804 Comment: BG controlled Continue Lantus and Lispro SS. (5) Acute on chronic respiratory failure with hypoxemia Current Visit: No Status: Acute Code(s): J96.21 - ACUTE AND CHRONIC RESPIRATORY FAILURE WITH HYPOXIA SNOMED Code(s): 00849574340640677 Comment: Now on home settings of 2.5Lnc Resolved (6) S/P aortic valve replacement with bioprosthetic valve Current Visit: No Status: Chronic Priority: Low Code(s): Z95.4 - PRESENCE OF OTHER HEART-VALVE REPLACEMENT SNOMED Code(s): 8061429710840 Comment: porcine valve noted (7) Acute on chronic diastolic heart failure Current Visit: Yes Status: Acute Code(s): I50.33 - ACUTE ON CHRONIC DIASTOLIC (CONGESTIVE) HEART FAILURE SNOMED Code(s): 106334958 Comment: IV lasix Status and Disposition: inpatient for IV diuresis
[2017-09-20] MEDS: metroNIDAZOLE TAB* 250 MG PO SCH ×2 (18:07→21:15)
[2017-09-20] MEDS: Furosemide IV* 10 MG/ML VIAL (40 MG) IV SLOW PU SCH (18:08)
[2017-09-20] MEDS: Insulin GLARGINE(*) 1 UNITS UNIT SUBCUT SCH (18:09)
[2017-09-20] MEDS: Mometasone 220 MCG MDI INH SCH (19:52)
[2017-09-20] MEDS: Pregabalin CAP(*) 50 MG PO SCH (21:15)
[2017-09-20] MEDS: traZODone TAB* 100 MG PO SCH (21:15)
[2017-09-21] MEDS: Metoprolol Succinate XL TAB* 25 MG PO SCH (05:44)
[2017-09-21] MEDS: Levothyroxine TAB* 100 MCG TAB PO SCH (05:44)
[2017-09-21] MEDS: Diltiazem CD CAP* 240 MG PO SCH (05:44)
[2017-09-21] MEDS: Heparin VIAL(*) 5000 UNITS/ML VIAL (FIVE THOUSAND) SUBCUT SCH (05:44)
[2017-09-21 06:34] LABS: ABS Basophils 0.1 10^3/ul (0-0.2); ABS Eosinophils 0.2 10^3/ul (0-0.6); ABS Lymphocytes 2.5 10^3/ul (1.0-4.8); ABS Neutrophils 7.9 10^3/ul (1.5-7.7); ABS Nucleated RBC 0 10^3/ul; Eosinophil % 2.1 % (0-6); Hematocrit 32 % (35-47); Hemoglobin 9.9 g/dl (12.0-16.0); Lymphocyte % 21.1 % (25-47); Mean Corpuscular HGB Conc 31 g/dl (31-36); Mean Corpuscular Hemoglobin 26 pg (27-31); Mean Corpuscular Volume 84 fL (80-97); Mean Platelet Volume 8.9 um3 (7.4-10.4); Nucleated Red Blood Cells % 0; Platelet Count 305 10^3/ul (150-450); Red Blood Count 3.77 10^6/ul (4.0-5.4); Red Cell Distribution Width 19 % (10.5-15); White Blood Count 11.7 10^3/ul (3.5-10.8)
[2017-09-21 06:53] LABS: EGFR Non-African American 61.9 (>60)
[2017-09-21] MEDS: Tiotropium CAP.INH* CAP.INH/18 MCG (USE ORDER SET !) INH SCH (07:47)
[2017-09-21] MEDS: Insulin LISPRO* 1 UNITS UNIT SUBCUT SCH ×2 (08:00→12:21)
[2017-09-21] MEDS: Furosemide IV* 10 MG/ML VIAL (40 MG) IV SLOW PU SCH (08:18)
[2017-09-21] MEDS: Sertraline* 100 MG TAB PO SCH (09:23)
[2017-09-21] MEDS: cefTRIAXone(*) 2 GM in NS 0.9% 100 ML* 100 ML IVPB SCH (09:23)
[2017-09-21] MEDS: Aspirin EC TAB* 81 MG TAB.EC PO SCH (09:24)
[2017-09-21] MEDS: Digoxin TAB* 0.25 MG PO SCH (09:24)
[2017-09-21] MEDS: metroNIDAZOLE TAB* 250 MG PO SCH (09:24)
[2017-09-21] MEDS: Atorvastatin* 80 MG TAB PO SCH (09:24)
[2017-09-21] MEDS: Ezetimibe TAB* 10 MG PO SCH (09:24)
[2017-09-21] MEDS ORDERED: Torsemide TAB* 20 MG PO ONE (09:30)
[2017-09-21 15:59] VITALS: BP 123/52
[2017-09-21] MEDS ORDERED: Torsemide TAB* 20 MG PO SCH (17:00)
--- NOTE | 2017-10-01 22:50 | DS ---
CC: Dr. Tereso Arzola; Dr. Simons * DISCHARGE SUMMARY: DATE OF ADMISSION: 09/08/17 DATE OF DISCHARGE: 09/21/17 PRINCIPAL DISCHARGE DIAGNOSES: 1. Sepsis. 2. Intraabdominal mass/presumed abscess. 3. Recent GI bleed. 4. Atrial fibrillation with rapid ventricular response. 5. Chronic obstructive pulmonary disease. 6. Acute on chronic diastolic heart failure. 7. Left hydronephrosis. SECONDARY DISCHARGE DIAGNOSES: 1. Peripheral vascular disease. 2. Gastroesophageal reflux disease. 3. Chronic pain syndrome. 4. Hypertension. 5. Obstructive sleep apnea. 6. Diabetes. 7. History of bowel obstruction, status post colostomy. 8. Hypothyroidism. 9. Porcine aortic valve. DISCHARGE MEDICATIONS: 1. Ceftriaxone 2 g IV daily. 2. Metronidazole 500 mg b.i.d. p.o. 3. Torsemide 40 mg b.i.d. 4. Metoprolol succinate 75 mg daily. 5. Digoxin 0.25 mg daily. 6. Lyrica 50 mg q.h.s. 7. Metformin 500 mg b.i.d. 8. Albuterol 2 puffs q.4 p.r.n. wheezing. 9. Levothyroxine 200 mcg daily. 10. Spironolactone 25 mg daily. 11. Zetia 10 mg daily. 12. Trazodone 100 mg q.h.s. 13. Xanax 0.25 mg t.i.d. p.r.n. anxiety. 14. [place] 5/325 q.4 hours p.r.n. pain. 15. Spiriva 1 cap inhaled daily. 16. Aspirin 81 mg daily. 17. Atorvastatin 80 mg daily. 18. Flovent 2 puffs inhaled b.i.d. 19. Sertraline 200 mg daily. PHYSICAL EXAMINATION AT THE TIME OF DISCHARGE: Temperature 97.4, heart rate 100 , pulse ox 100% on 2 L, blood pressure 123/52. General: Alert, well-appearing female, in no distress. HEENT: Pupils are equal, round and reactive to light. No nystagmus. Moist mucosa. Neck: JVP to approximately 10 cm. No cervical lymphadenopathy. Chest: Irregularly irregular rhythm. A systolic murmur was heard at the right upper sternal border. Lungs: Clear bilaterally. Abdomen: With an ostomy in the left lower quadrant draining brown stool. She was tender to deep palpation inferior to the ostomy in the left lower quadrant with no guarding or rebound. No CVA tenderness. She does have 2+ bilateral lower extremity edema. HOSPITAL COURSE BY PROBLEM: 1. Sepsis. This was found to be due to an intraabdominal abscess on a CT of the abdomen and pelvis at admission. The CT report from admission showed a large mass in the left lower quadrant with prominent surrounding interstitial stranding concerning for a phlegmonous process. At this time, she was started on broad spectrum antibiotics and General Surgery was consulted. They recommended a conservative approach with IV antibiotics, serial abdominal exams , and serial CT abdomen. She received volume resuscitation when admitted for sepsis and her blood cultures remains negative. No other source of the sepsis was found besides the intraabdominal process. 2. Intraabdominal mass/suspected abscess. Again, no sample was obtained of the left lower quadrant abscess that was found on CT. A percutaneous sampling was considered, however, she continued to improve on empiric antibiotics, so Infectious Diseases was consulted, who recommended narrowing her antibiotics to IV ceftriaxone and p.o. metronidazole for a total of 6 weeks. She was discharged with the PICC line and 42 days total of IV ceftriaxone and p.o. metronidazole. She will follow up with Dr. Arzola in 3 weeks for a repeat CT scan to see if the left lower quadrant mass is decreasing in size. Of course, the differential for this mass remains broad and includes malignancy; however, this will be followed on repeat CT scans as an outpatient for resolution. 3. Recent GI bleed. Ms. Ziegler was admitted in the prior months for bleeding into her ostomy. For this reason, her anticoagulation had been discontinued. She had no further evidence of bleeding on this admission and her hemoglobin remained stable. Her hemoglobin at the time of discharge was 9.9. 4. Atrial fibrillation with rapid ventricular response. We did have some trouble controlling her heart rate during this admission and ultimately found that she responded better to metoprolol than calcium channel blockers. I increased her metoprolol after titrating short-acting metoprolol and I discontinued her Cardizem and digoxin was a new medication for her. We started digoxin due to hypotension when her heart rate was uncontrolled. Her anticoagulation continued to be held, given her recent GI bleed. Of note, on the prior hospitalization, anticoagulation was re-tried after resolution of the bleed and she bled again. I discussed the risks of bleeding versus CVA with Ms. Ziegler, and she agreed with holding anticoagulation at this time. 5. COPD. She was maintained on her home oxygen requirement of 2 to 3 L continuously and had no evidence of exacerbation during this admission. 6. Acute on chronic diastolic heart failure. She did receive volume resuscitation at the time of admission and was noted to be volume overloaded after volume resuscitation. For this reason, I increased her torsemide just for a short time after discharge and instructed her to take it twice a day for 5 days following discharge and then return back to her usual once daily dose unless her PCP instructed her otherwise. 7. Mild left-sided hydronephrosis. This was thought to be related to the left lower quadrant mass. Dr. Narayanan was consulted to review the CT scan and make sure that no intervention needed to be done in the left ureter and he recommended holding off on stent insertion, but recommended a repeat imaging study after discharge and referal to him if it continues to be present. TIME SPENT: Approximately 60 minutes was spent on this discharge, greater than 30 minutes was spent [id number] with the patient. [id number]/[facility] #: [id number] SERENA
== END 2017-09-21 15:13 | disposition home or self-care (01) | DRG 291 ==
LOC: ED 11:37 → MEDTELE 16:33 → OBSVTOIN 09-09 11:24
PROVIDERS: ADMIT Internal Medicine; ATTEND Internal Medicine
DX: I11.0 Hypertensive heart disease with heart failure (principal); I50.33 Acute on chronic diastolic (congestive) heart failure; J96.21 Acute and chronic respiratory failure with hypoxia; K57.91 Diverticulosis of intestine, part unspecified, without perforation or abscess with bleeding; A41.9 Sepsis, unspecified organism; I48.92 Unspecified atrial flutter; Z68.41 Body mass index [BMI] 40.0-44.9, adult; J44.1 Chronic obstructive pulmonary disease with (acute) exacerbation; K94.01 Colostomy hemorrhage; R65.10 Systemic inflammatory response syndrome (SIRS) of non-infectious origin without acute organ dysfunction; N13.30 Unspecified hydronephrosis; Z91.030 Bee allergy status; Z91.041 Radiographic dye allergy status; Z88.8 Allergy status to other drugs, medicaments and biological substances; Z91.018 Allergy to other foods; Z79.01 Long term (current) use of anticoagulants; Z86.718 Personal history of other venous thrombosis and embolism; I25.10 Atherosclerotic heart disease of native coronary artery without angina pectoris; I73.9 Peripheral vascular disease, unspecified; Z95.1 Presence of aortocoronary bypass graft; G47.30 Sleep apnea, unspecified; Z87.01 Personal history of pneumonia (recurrent); K21.9 Gastro-esophageal reflux disease without esophagitis; M13.812 Other specified arthritis, left shoulder; M13.811 Other specified arthritis, right shoulder; M13.862 Other specified arthritis, left knee; M13.861 Other specified arthritis, right knee; Z96.642 Presence of left artificial hip joint; M41.9 Scoliosis, unspecified; F32.9 Major depressive disorder, single episode, unspecified; F41.9 Anxiety disorder, unspecified; Z87.898 Personal history of other specified conditions; Z82.49 Family history of ischemic heart disease and other diseases of the circulatory system; Z87.891 Personal history of nicotine dependence; I95.9 Hypotension, unspecified; G89.29 Other chronic pain; Z99.81 Dependence on supplemental oxygen; I48.2 Chronic atrial fibrillation; G47.33 Obstructive sleep apnea (adult) (pediatric); I25.2 Old myocardial infarction; E03.9 Hypothyroidism, unspecified; E78.5 Hyperlipidemia, unspecified; E11.51 Type 2 diabetes mellitus with diabetic peripheral angiopathy without gangrene; Z95.2 Presence of prosthetic heart valve; E66.01 Morbid (severe) obesity due to excess calories; D64.9 Anemia, unspecified; K43.2 Incisional hernia without obstruction or gangrene; K43.5 Parastomal hernia without obstruction or gangrene; R19.04 Left lower quadrant abdominal swelling, mass and lump; Z86.711 Personal history of pulmonary embolism; Z79.4 Long term (current) use of insulin; I87.8 Other specified disorders of veins
CPT/HCPCS: 36415; 70450; 71045; 71275; 74176; 74177; 80048; 80053; 81003; 81015; 83605; 83735; 83880; 84145; 84484; 85025; 85610; 85652; 85730; 86140; 86850; 86900; 86901; 87040; 87070; 87086; 87205; 87502; 87899; 93005; 93970; 94640; 94760; 99284; A9270-GY; G8979-GP-CH; G8980-GP-CH; J0696; J0744; J1160; J1644; J1940; J2405; J3475; J3490; J7512; Q9967

== ENCOUNTER 2017-10-19 12:23 | Inpatient (IN) | payer MEDICARE, MEDICAID ==
[2017-10-19] MEDS ORDERED: NS 0.9% 1000 ML* 1,000 ML IV ONE (12:29)
[2017-10-19] MEDS ORDERED: Diltiazem IV* 5 MG/ML 5 ML VIAL (for loading dose/IV Push) (25 MG) IV PUSH ONE (12:29)
[2017-10-19 12:49] LABS: ABS Basophils 0.1 10^3/ul (0-0.2); ABS Eosinophils 0 10^3/ul (0-0.6); ABS Lymphocytes 1.4 10^3/ul (1.0-4.8); ABS Monocytes 0.9 10^3/ul (0-0.8); ABS Neutrophils 9.2 10^3/ul (1.5-7.7); ABS Nucleated RBC 0 10^3/ul; Eosinophil % 0.1 % (0-6); Hematocrit 39 % (35-47); Hemoglobin 11.6 g/dl (12.0-16.0); Lymphocyte % 11.8 % (25-47); Mean Corpuscular HGB Conc 30 g/dl (31-36); Mean Corpuscular Hemoglobin 25 pg (27-31); Mean Corpuscular Volume 83 fL (80-97); Mean Platelet Volume 10.1 um3 (7.4-10.4); Nucleated Red Blood Cells % 0.3; Platelet Count 188 10^3/ul (150-450); Red Blood Count 4.67 10^6/ul (4.0-5.4); Red Cell Distribution Width 18 % (10.5-15); White Blood Count 11.7 10^3/ul (3.5-10.8)
--- NOTE | 2017-10-19 13:10 | RAD ---
HISTORY: Shortness of breath COMPARISONS: September 08, 2017 VIEWS: 1: frontal portable view of the chest at 12:44 PM FINDINGS: LINES AND TUBES: None. CARDIOMEDIASTINAL SILHOUETTE: The cardiac silhouette is enlarged. The cardiomediastinal silhouette is otherwise normal for portable technique. PLEURA: There is a small left pleural effusion. LUNG PARENCHYMA: There is prominence of the central pulmonary vasculature. ABDOMEN: The upper abdomen is clear. There is no subphrenic gas. BONES AND SOFT TISSUES: The patient is status post median sternotomy. IMPRESSION: 1. CARDIOMEGALY. 2. PULMONARY VASCULAR CONGESTION. 3. SMALL LEFT PLEURAL EFFUSION
[2017-10-19] MEDS ORDERED: Magnesium Sulfate 2 GM IV* 2 GM/50 ML BAG IVPB ONE (13:51)
[2017-10-19] MEDS ORDERED: ALPRAZolam TAB* 0.25 MG PO PRN (13:54)
[2017-10-19] MEDS ORDERED: Albuterol HFA INHALER* 8 gm MDI INH PRN (13:54)
[2017-10-19] MEDS ORDERED: NS 0.9% 1000 ML* 1,000 ML IV SCH (14:00)
[2017-10-19] MEDS ORDERED: cefTRIAXone VIAL(*) 1,000 MG VIAL IVPB SCH (14:00)
[2017-10-19] MEDS ORDERED: cefTRIAXone(*) 2 GM in NS 0.9% 100 ML* 100 ML IVPB SCH (14:00)
[2017-10-19] MEDS ORDERED: Ipratropium 0.5MG/2.5ML NEB* 0.5 MG/2.5 ML NEB.SOLN INH PRN (14:10)
[2017-10-19] MEDS ORDERED: Al Hydrox/Mg Hydrox/Simet LIQ* 30 ML UDC PO PRN (14:13)
[2017-10-19] MEDS ORDERED: Acetaminophen TAB* 325 MG PO PRN (14:13)
--- NOTE | 2017-10-19 14:52 | RAD ---
INDICATION: Evaluate for pulmonary embolus COMPARISON: Check x-ray same date TECHNIQUE: Following the administration of 9.6 millicuries of xenon gas, anterior and posterior deep breath, equilibrium, and washout phase imaging was performed. Following the intravenous administration of 6.3 millicuries of technetium 99m, MAA, anterior, posterior, lateral, and oblique imaging of the chest was performed. FINDINGS: Ventilation images show normal ventilation. The perfusion images show no segmentally absent areas of ventilation/perfusion mismatch. The probability of acute pulmonary embolus is low. IMPRESSION: LOW PROBABILITY FOR ACUTE PULMONARY EMBOLUS.
[2017-10-19] MEDS: cefTRIAXone(*) 2 GM in NS 0.9% 100 ML* 100 ML IVPB SCH (15:13)
[2017-10-19] MEDS: Levalbuterol 1.25MG/0.5ML NEB INH SCH ×3 (15:57→23:11)
[2017-10-19] MEDS: methylPREDNISolone SOD 40 MG* 1 ML VIAL IV SCH (16:24)
[2017-10-19] MEDS: Digoxin TAB* 0.25 MG PO SCH (16:41)
--- NOTE | 2017-10-19 17:35 | RAD ---
CLINICAL HISTORY: Follow-up of abdominal mass COMPARISON: October 11, 2012 TECHNIQUE: Multiple contiguous axial CT scans were obtained of the abdomen and pelvis, without intravenous contrast enhancement. Coronal and sagittal multiplanar reformations are submitted for review. Oral contrast was administered. FINDINGS: The study is limited by the lack of intravenous contrast. This limits evaluation of the solid organs and vasculature. LUNG BASES: There is moderate left pleural effusion. LIVER: The liver is normal in shape, size, contour, and attenuation. BILE DUCTS: There is no intrahepatic or extrahepatic biliary dilatation. GALLBLADDER: The gallbladder is not visualized. Surgical clips are noted in the gallbladder fossa. PANCREAS: The pancreas is normal, without mass or ductal dilatation. SPLEEN: Normal in size and appearance. UPPER GI TRACT: Evaluation of the gastrointestinal tract is limited by incomplete gastric distention. The upper GI tract is unremarkable. SMALL BOWEL AND MESENTERY: The small bowel is normal in contour, course, and caliber. There is no obstruction or dilatation. COLON: There are multiple diverticula of the sigmoid colon. There is no pericolonic inflammatory change. A colostomy is noted. ADRENALS: Normal bilaterally. KIDNEYS: The kidneys are normal in shape, size, contour, and axis. Vascular calcifications are noted. There is no hydronephrosis or nephrolithiasis. BLADDER: The bladder is smooth in contour. PELVIC ORGANS: The uterus and adnexa are grossly normal for technique. Again noted is a soft tissue density of the left hemipelvis measuring up to 3.2 cm in size. This is stable from the previous examination. AORTA: There is calcific atherosclerotic disease of the abdominal aorta and its branches, without aneurysmal dilatation IVC: Unremarkable LYMPH NODES: There is no lymphadenopathy by size criteria. ABDOMINAL WALL: Again noted is a large ventral hernia containing much of the small bowel and portion of transverse colon. BONES AND SOFT TISSUES: Degenerative changes are noted. OTHER: None IMPRESSION: 1. STABLE SOFT TISSUE DENSITY OF THE LEFT HEMIPELVIS. THIS MAY BE INFLAMMATORY OR MAY BE RELATED TO LEFT OVARIAN PATHOLOGY. RECOMMEND CONTINUED ATTENTION FOLLOW-UP. 2. AGAIN NOTED IS A LARGE VENTRAL HERNIA CONTAINING SMALL BOWEL AND LARGE BOWEL. 3. LEFT PLEURAL EFFUSION, STABLE.
[2017-10-19] MEDS: Mometasone 220 MCG MDI INH SCH (19:57)
[2017-10-19] MEDS: Pregabalin CAP(*) 50 MG PO SCH (20:15)
[2017-10-19] MEDS: metroNIDAZOLE TAB* 250 MG PO SCH (20:16)
[2017-10-19] MEDS: traZODone TAB* 100 MG PO SCH (20:16)
[2017-10-19] MEDS ORDERED: Torsemide TAB* 20 MG PO SCH (21:00)
[2017-10-19] MEDS: Heparin VIAL(*) 5000 UNITS/ML VIAL (FIVE THOUSAND) SUBCUT SCH (21:29)
[2017-10-19] MEDS ORDERED: Diltiazem IV* 5 MG/ML 5 ML VIAL (for loading dose/IV Push) (25 MG) IV SLOW PU ONE ×2 (21:49→23:56)
[2017-10-19] MEDS ORDERED: Diltiazem IV* 5 MG/ML 5 ML VIAL (for loading dose/IV Push) (25 MG) ONE (21:51)
--- NOTE | 2017-10-19 21:52 | HP ---
ADDENDUM NOW INCLUDED ON THIS REPORT CC: Dr. Simons; Dr. Arzola * HISTORY AND PHYSICAL: DATE OF ADMISSION: 10/19/17 PRIMARY CARE PROVIDER: Dr. Simons. CHIEF COMPLAINT: Chest pain and shortness of breath. HISTORY OF PRESENT ILLNESS: Mercy Ziegler is a 66-year-old female with history of chronic atrial fibrillation with episodes of rapid AFib and during those episodes she gets chest pain, who presented to the hospital complaining of chest pain and shortness of breath once again. Usually, she has those episodes when she has other underlying pathology. The patient stated that she has not been feeling well for the past 2 or 3 days. Her breathing had been impaired and she had been wheezing. She had been using her nebulizers as prescribed several times a day, despite that she continued to be short of breath. Her appetite had been poor and she had been slightly nauseated. Despite that, she denies any abdominal pain and her bowel movements have been regular. Today, she had her PICC line discontinued and she was switched by Dr. Arzola from IV ceftriaxone to p.o. ceftriaxone. She presented with shortness of breath and hypotension as well as pleuritic chest pain to the ED. Her heart rate was in the 170s and she has systolic pressures in the 70s. She received 20 mg of IV Cardizem. Currently her blood pressure is up to 120s and her heart rate is in the 90s, still in AFib. She feels much better, but she still continues to have problems with breathing and wheezing. She is going to be admitted with a diagnosis of atrial fibrillation with rapid ventricular response , shortness of breath and possible sepsis. PAST MEDICAL HISTORY: 1. Prolonged hospitalization ending on 09/21/17 for intraabdominal mass, presumed abscess and sepsis. The patient was discharged on 09/21/17 with plans of IV ceftriaxone and Flagyl. After 4 days of this treatment, the patient was switched to p.o. antibiotics and today her PICC line was pulled. 2. History of recent GI bleed, during which hospital stay the patient's anticoagulation was discontinued. 3. History of atrial fibrillation with periods of atrial fibrillation with rapid ventricular response. 4. History of COPD, on oxygen at 2 to 3 L. 5. History of chronic diastolic CHF. 6. History of left-sided hydronephrosis, likely related to the abdominal mass. 7. History of peripheral vascular disease. 8. Gastroesophageal reflux disease. 9. Chronic pain. 10. Hypertension. 11. Obstructive sleep apnea. 12. Diabetes. 13. History of bowel obstruction, status post colostomy. 14. Hypothyroidism. 15. Status post aortic valve replacement with bioprosthetic valve. 16. History of PE and DVT in the past. 17. Coronary artery disease with coronary artery bypass grafting in 2009. 18. Cholecystectomy. 19. Ventral hernia repair. MEDICATIONS: Current medications at home included: 1. Trazodone 100 mg at bedtime. 2. Flagyl 500 mg b.i.d. 3. Metformin 500 mg twice a day. 4. Ceftriaxone 2 g IV every 24 hours. 5. Torsemide 40 mg b.i.d. 6. Spiriva 1 inhalation daily. 7. Aldactone 25 mg daily. 8. Zoloft 200 mg daily. 9. Lyrica 50 mg at bedtime. 10. Metoprolol succinate 75 mg daily. 11. Levothyroxine 200 mcg daily. 12. Hydrocodone with acetaminophen 5/325 mg 1 tablet every 4 hours p.r.n. 13. Flovent inhaler 110 mcg 2 puffs inhalation b.i.d. 14. Zetia 10 mg daily. 15. Cardizem CD 240 mg daily. 16. Digoxin 0.25 mg daily. 17. Lipitor 80 mg daily. 18. Aspirin 81 mg daily. 19. Albuterol inhaler 2 puffs every 4 hours p.r.n. 20. Xanax 0.25 mg 3 times a day p.r.n. ALLERGIES: Include SHELLFISH, IODINE, CELEBREX; all caused hives. FAMILY HISTORY: Positive for heart disease in mother and brother. SOCIAL HISTORY: The patient quit smoking 3 years ago. She has history of 10- pack- year smoking. Denies any alcohol or drug use. She lives with her son. Ambulates with a roller walker. The patient's healthcare proxy is her son, Nehemiah , who lives with the patient. The patient is oxygen dependent at 2 to 3 L. She is a full code. REVIEW OF SYSTEMS: Please see history of present illness. The patient stated her weight had been unchanged. Her appetite had been poor for the past 2 days and she had been complaining of more shortness of breath. She stated that the chest pain that happened today is usually the chest pain that occurs when her atrial fibrillation is rapid. Her legs get swollen whenever she starts walking for long period of time. All the remaining 12 systems were reviewed with the patient and were otherwise negative. PHYSICAL EXAMINATION GENERAL: The patient is a very pleasant 66-year-old female, who is in no acute distress. Alert, awake, and oriented x3. VITAL SIGNS: Blood pressure of 111/86, heart rate in between 98 or 120 currently and irregular, respiratory rate 20, oxygen saturation 96% on 2 L of oxygen via nasal cannula, temperature of 99.0. HEENT: Head: Atraumatic, normocephalic. Eyes: Extraocular muscles are intact. Pupils are equal, reactive to light and accommodation. Oropharynx clear. Mucosa moist. NECK: Supple. No JVD. No bruits bilaterally. RESPIRATORY: Coarse breath sounds bilaterally with coarse wheezes at bilateral lower lungs. CARDIOVASCULAR: Irregularly irregular rhythm. A 2/6 systolic ejection murmur on auscultation of the right upper sternal border. ABDOMEN: Soft. Mildly tender in the left lower quadrant next to the colostomy. It is localized into the left lower quadrant also. The colostomy appears pink with semi-formed fecal matter in the bag. Bowel sounds are present in all 4 quadrants. EXTREMITIES: There is trace bilateral pedal edema. Pulses are 2+ bilaterally. No clubbing or cyanosis. NEURO EVALUATION: Speech clear. Cranial nerves II through XII are grossly intact. Motor strength is 5/5 bilaterally. SKIN: The patient has venous stasis discoloration of bilateral lower extremities. No other skin changes noted. DIAGNOSTIC STUDIES/LAB DATA: White blood cell count of 11.7, hemoglobin of 11.6, hematocrit of 39, MCV of 83, and platelets of 188,000. Sodium was 133, potassium 4.1, chloride 98, carbon dioxide 24, BUN 23, creatinine 1.57. Liver function tests showed AST of 511, ALT of 515, total bilirubin of 0.7, alkaline phosphatase of 96. Troponin was 0.02. C-reactive protein was 33. Brain natriuretic peptide was 441. Lactic acid of 4.2. TSH low at 0.07 similar to prior TSH reported on 08/03/17 at 0.22. Digoxin level of 1.1. Portable chest x-ray, impression: "Cardiomegaly. Pulmonary vascular congestion. Small left pleural effusion." Studies pending at the time of dictation that are already ordered; a CT of abdomen and pelvis with oral contrast only, as well as V/Q scan to rule out PE. ASSESSMENT AND PLAN: 1. In regards to the patient's chest pain, on one side it is pleuritic and pulmonary embolism needs to be ruled out in a patient who had been hospitalized and does not have the greatest mobility. A V/Q scan is going to be obtained due to the patient's history of SHELLFISH allergy. On differential also is symptomatic atrial fibrillation, which the patient herself stated that that is usual chest pain that she has when her atrial fibrillation is fast. I will also follow up troponins to make sure the patient did not develop cardiac ischemia. The patient's troponin is negative. 2. The patient's atrial fibrillation is currently more rate controlled after 1 bolus of Cardizem. We will continue the patient all the outpatient medications , give her an additional dose of digoxin and monitor. 3. The patient's shortness of breath is most likely what precipitated the onset of atrial fibrillation with rapid ventricular response. At this point, it is difficult to assess what happened first. On one hand, the patient appears to have vascular congestion on her chest x-ray and has elevation of brain natriuretic peptide. On the other hand, she came in hypotensive, has liver function tests elevation and elevated lactic acid, as well as acute kidney injury suggesting possibility of intravascular depletion. At this point , I suspect that what happened was that chronic obstructive pulmonary disease exacerbation precipitated the patient's shortness of breath and atrial fibrillation, which in response caused hypotension and hypoperfusion. At this point, I will place the patient on Solu- Medrol as well as nebulizer treatments with Xopenex having consideration that albuterol can cause increase of heart rate. I will continue observing. 4. The patient is septic at admission or meets sepsis criteria at admission, although at this point I believe it is more likely related to not underlying infection per se, but atrial fibrillation and symptoms of shortness of breath and that caused enough stress to cause reactive leukocytosis, tachycardia and hypotension. Nevertheless, blood cultures were obtained. Due to the patient's history of recent intraabdominal abscesses, a CT of abdomen is going to be obtained and for the time being the patient empirically is going to be restarted on restarted on her ceftriaxone and Flagyl. 5. The patient's acute kidney injury as well as elevation of LFTs is a sign of hypoperfusion and in fact, the patient was hypotensive when she came in with heart rate in the 170s in the emergency department. At this point, the patient is going to be placed on gentle intravenous hydration. We will check the patient's lactic acid level later on today and LFTs later on in the morning. 6. History of diastolic congestive heart failure. At this point, it is possible that originally the patient's shortness of breath was related to diastolic congestive heart failure, but now she is hypoperfused due to atrial fibrillation. It is very difficult to appellate court judge the patient's fluid status since she is obese and usually edematous. At this point, I will restart the patient' s diuretic in the morning, not give her any diuretic tonight, and continue gentle IV fluids in consideration of her history of congestive heart failure. 7. For DVT prophylaxis, the patient is going to be placed on heparin subcutaneously. 8. The patient's hypomagnesemia is going to be replaced IV, it could have also contributed to atrial fibrillation. 9. The patient's code status is full and her surrogate is her son. TIME SPENT: Approximately 80 minutes were spent on admission of this patient, more than half of that time was spent [id number] with the patient during the interview and physical exam. ADDENDUM: Please note that the patient's low TSH indicates hyperthyroidism. It appears that the patient had low TSH approximately 3 months ago. At this point, I will follow up with free T4 and free T3 to evaluate it further. [id number]/[facility] #: [id number]/[facility]PS #: [id number] [facility]ITALBrendan
--- NOTE | 2017-10-19 22:25 | HP ---
HISTORY AND PHYSICAL: ADDENDUM: Please note that the patient's low TSH indicates hyperthyroidism. It appears that the patient had low TSH approximately 3 months ago. At this point, I will follow up with free T4 and free T3 to evaluate it further. [id number]/[facility] #: [id number] MTDD
[2017-10-20] MEDS ORDERED: Diltiazem DRIP* 100 MG/100 ML ADDV.BAG IVPB SCH (01:00)
[2017-10-20] MEDS: methylPREDNISolone SOD 40 MG* 1 ML VIAL IV SCH ×2 (03:14→13:49)
[2017-10-20] MEDS: Levalbuterol 1.25MG/0.5ML NEB INH SCH ×2 (03:43→07:49)
[2017-10-20] MEDS ORDERED: Dextrose 50% Syringe 50 ML* 25 GM/50 ML SYRINGE IV PUSH PRN (03:50)
[2017-10-20] MEDS: Heparin VIAL(*) 5000 UNITS/ML VIAL (FIVE THOUSAND) SUBCUT SCH ×3 (05:41→21:40)
[2017-10-20 06:37] LABS: ABS Basophils 0 10^3/ul (0-0.2); ABS Eosinophils 0 10^3/ul (0-0.6); ABS Lymphocytes 0.6 10^3/ul (1.0-4.8); ABS Monocytes 0.3 10^3/ul (0-0.8); ABS Nucleated RBC 0 10^3/ul; Hematocrit 32 % (35-47); Hemoglobin 10.1 g/dl (12.0-16.0); Mean Corpuscular HGB Conc 31 g/dl (31-36); Mean Corpuscular Hemoglobin 26 pg (27-31); Mean Corpuscular Volume 81 fL (80-97); Red Blood Count 3.97 10^6/ul (4.0-5.4); Red Cell Distribution Width 18 % (10.5-15)
[2017-10-20 06:54] LABS: EGFR Non-African American 49.2 (>60)
[2017-10-20 07:29] LABS: Monocytes % 5 % (0-7)
[2017-10-20] MEDS: Tiotropium CAP.INH* CAP.INH/18 MCG (USE ORDER SET !) INH SCH (07:49)
[2017-10-20 08:10] LABS: Mean Platelet Volume 9.9 um3 (7.4-10.4); Platelet Count 150 10^3/ul (150-450)
[2017-10-20] MEDS ORDERED: Diltiazem CD CAP* 240 MG PO SCH (09:00)
[2017-10-20] MEDS ORDERED: Spiriva Inhaler DEVICE* 1 EACH DEVICE INH ONE (09:00)
[2017-10-20] MEDS: Insulin LISPRO* 1 UNITS UNIT SUBCUT SCH ×3 (09:03→17:29)
[2017-10-20] MEDS: Sertraline* 100 MG TAB PO SCH (09:05)
[2017-10-20] MEDS: Digoxin TAB* 0.25 MG PO SCH (09:05)
[2017-10-20] MEDS: Metoprolol Succinate XL TAB* 25 MG PO SCH (09:05)
[2017-10-20] MEDS: Levothyroxine TAB* 100 MCG TAB PO SCH (09:05)
[2017-10-20] MEDS: Aspirin EC TAB* 81 MG TAB.EC PO SCH (09:05)
[2017-10-20] MEDS: metroNIDAZOLE TAB* 250 MG PO SCH ×2 (09:06→21:39)
[2017-10-20] MEDS: Atorvastatin* 80 MG TAB PO SCH (09:06)
[2017-10-20] MEDS: Torsemide TAB* 20 MG PO SCH ×2 (09:06→21:40)
[2017-10-20 09:56] LABS: Urine Appearance Cloudy; Urine Blood Negative (Negative); Urine Color Yellow; Urine Ketones Negative (Negative); Urine Protein Negative (Negative); Urine Specific Gravity 1.013 (1.010-1.030); Urine Urobilinogen Negative (Negative)
[2017-10-20] MEDS: HYDROcodone/ACETAMIN 5-325 MG* 1 TAB PO PRN (11:47)
[2017-10-20] MEDS: Diltiazem CD CAP* 240 MG PO SCH (12:20)
[2017-10-20] MEDS: Ezetimibe TAB* 10 MG PO SCH (13:49)
[2017-10-20] MEDS: cefTRIAXone(*) 2 GM in NS 0.9% 100 ML* 100 ML IVPB SCH (13:49)
--- NOTE | 2017-10-20 18:03 | PN ---
Subjective Date of Service: 10/20/17 Interval History: HOSPITALIST PROGRESS NOTE Patient seen and examined at bedside. Care reviewed and d/w Leodan Marlow RN. She feels a little better today. Chest discomfort while Afib is fast, but better now. Family History: Unchanged from Admission Social History: Unchanged from Admission Past Medical History: Unchanged from Admission Objective Active Medications: Acetaminophen (Tylenol Tab*) 650 mg PO Q4H PRN PRN Reason: FEVER/PAIN Hydrocodone Bitart/Acetaminophen ([place] 5-325 Tab*) 1 tab PO Q4H PRN PRN Reason: PAIN Last Admin: 10/20/17 11:47 Dose: 1 tab Al Hydrox/Mg Hydrox/Simethicone (Maalox Plus*) 30 ml PO Q6H PRN PRN Reason: INDIGESTION Albuterol (Ventolin Hfa Inhaler*) 2 puff INH Q4H PRN PRN Reason: SOB/WHEEZING Alprazolam (Xanax Tab*) 0.25 mg PO TID PRN PRN Reason: ANXIETY Last Admin: 10/20/17 03:14 Dose: 0.25 mg Aspirin (Aspirin Ec Tab*) 81 mg PO DAILY [facility] Last Admin: 10/20/17 09:05 Dose: 81 mg Atorvastatin Calcium (Lipitor*) 80 mg PO DAILY [facility] Last Admin: 10/20/17 09:06 Dose: 80 mg Dextrose (D50w Syringe 50 Ml*) 12.5 gm IV PUSH .FOR FS < 60 - SS PRN PRN Reason: FS < 60 Digoxin (Lanoxin Tab*) 0.25 mg PO DAILY [facility] Last Admin: 10/20/17 09:05 Dose: 0.25 mg Diltiazem HCl (Cardizem Cd Cap*) 240 mg PO DAILY [facility] Last Admin: 10/20/17 12:20 Dose: 240 mg Ezetimibe (Zetia Tab*) 10 mg PO DAILY [facility] Last Admin: 10/20/17 13:49 Dose: 10 mg Heparin Sodium (Porcine) (Heparin Vial(*)) 5,000 units SUBCUT Q8HR [facility] Last Admin: 10/20/17 13:49 Dose: 5,000 units Ceftriaxone Sodium 2 gm/ (Sodium Chloride) 100 mls @ 200 mls/hr IVPB Q24H [facility] Last Admin: 10/20/17 13:49 Dose: 200 mls/hr Diltiazem HCl (Cardizem Iv Advan*) 100 mg in 100 mls @ 5 mls/hr IVPB Q20H JL; 5 MG/HR PRN Reason: Protocol Last Admin: 10/20/17 00:58 Dose: 5 mls/hr Insulin Human Lispro (Humalog*) 0 units SUBCUT AC JL PRN Reason: Protocol Last Admin: 10/20/17 17:29 Dose: 9 units Ipratropium [place] (Atrovent 0.5 Mg Neb.Lorie*) 0.5 mg INH Q4H PRN PRN Reason: SOB/WHEEZING Levothyroxine Sodium (Synthroid Tab*) 200 mcg PO DAILY [facility] Last Admin: 10/20/17 09:05 Dose: 200 mcg Methylprednisolone Sodium Succinate (Solu-Medrol 40 Mg) 40 mg IV Q12H JL Last Admin: 10/20/17 13:49 Dose: 40 mg Metoprolol Succinate (Toprol Xl Tab*) 75 mg PO DAILY [facility] Last Admin: 10/20/17 09:05 Dose: 75 mg Metronidazole (Flagyl Tab*) 500 mg PO BID JL Last Admin: 10/20/17 09:06 Dose: 500 mg Mometasone Furoate (Asmanex 220 Mcg Mdi *) 2 puff INH BEDTIME JL Last Admin: 10/19/17 19:57 Dose: 2 puff Pregabalin (Lyrica Cap(*)) 50 mg PO BEDTIME JL Last Admin: 10/19/17 20:15 Dose: 50 mg Sertraline HCl (Zoloft*) 200 mg PO DAILY [facility] Last Admin: 10/20/17 09:05 Dose: 200 mg Tiotropium [place] (Spiriva Cap.Inh*) 1 cap INH DAILY [facility] Last Admin: 10/20/17 07:49 Dose: 1 cap Torsemide (Demadex*) 40 mg PO BID [facility] Last Admin: 10/20/17 09:06 Dose: 40 mg Trazodone HCl (Desyrel Tab*) 100 mg PO BEDTIME JL Last Admin: 10/19/17 20:16 Dose: 100 mg Vital Signs - 8 hr 10/20/17 15:53 Temperature 97.8 F Pulse Rate 97 Respiratory 16 Rate Blood Pressure 114/75 (mmHg) O2 Sat by Pulse 99 Oximetry Oxygen Devices in Use Now: Nasal Cannula - 2 liters Appearance: Morbid obese lady sitting up in a recliner in NAD. Eyes: No Scleral Icterus Ears/Nose/Mouth/Throat: Mucous Membranes Moist Neck: Trachea Midline Respiratory: Symmetrical Chest Expansion and Respiratory Effort, - - BS+ bilaterally with scattered wheezes Cardiovascular: - - Normal S1 and S2, irregularly irregular Neurological: Alert and Oriented x 3 Result Diagrams: 10/20/17 06:19 10/20/17 06:19 Assess/Plan/Problems-Billing Assessment: Mrs. Ziegler is a 66yo F with PMH of obesity, Afib, COPD on home O2 2 liters/ min, PVF, GERD, diastolic CHF with EF 55%, chronic pain, HTN, DVT, PE, RYAN, diabetes, bowel obstruction requiring colostomy, CAD s/p CABG, s/p AVR (porcine) , HLD, hypothyroidism, recent admission for large LLQ mass/probable abscess, who presented to ED with c/o chest pain and dyspnea, found to have COPD exacerbation and rapid Afib. - Patient Problems (1) Chest pain Comment: - Patient describes chest discomfort when she's in rapid Afib, improved with rate control. - Troponins are negative. - V/Q scan low probability for PE. (2) COPD (chronic obstructive pulmonary disease) Comment: - With exacerbation, but no signs of infection at this time. - Continue bronchodilators and steroids. (3) Atrial fibrillation with RVR Comment: - Rate is better controlled - this was likely precipitated by COPD exacerbation. - Off Cardizem drip now - continue PO Cardizem and digoxin. (4) Transaminitis Comment: - Suspected secondary to poor perfusion in the setting of rapid Afib. - Improving. (5) Abdominal mass, LLQ (left lower quadrant) Comment: - CT shows the mass is stable - will continue Ceftriaxone and Flagyl. - Will d/w ID. (6) Diabetes Comment: - Add Lantus and continue Lispro SS. (7) DVT prophylaxis Comment: - SQ heparin. (8) Full code status Status and Disposition: Inpatient.
[2017-10-20] MEDS: Mometasone 220 MCG MDI INH SCH (20:33)
--- NOTE | 2017-10-20 21:12 | ED ---
Jessica Love Rebecca, scribed for Jace Echols MD on 10/19/17 at 1238 . Palpitations / Dysrhythmia - HPI Summary HPI Summary: Pt is a 66 y/o F BIBA who presents to ED c/o CP, SOB and palpitations. Sx have been present since this morning upon waking up. On triage, CP is moderate, ranked 6/10. Palpitations are characterized as rapid and on arrival, the pt's HR is 159 bpm. Sx aggravated and alleviated by nothing. PMHx CAD, CHF, HTN, COPD. - History of Current Complaint Chief Complaint: EDChestPainROMI Time Seen by Provider: 10/19/17 12:29 Hx Obtained From: Patient Onset/Duration: Lasting Hours, Still Present Severity Currently: Moderate Character: Fast Aggravating: Nothing Alleviating: Nothing Associated Signs & Symptoms: Chest Pain, Shortness of Breath - Allergy/Home Medications Allergies/Adverse Reactions: Allergies Allergy/AdvReac Type Severity Reaction Status Date / Time bee venom protein (honey bee) Allergy Severe Rash Verified 08/03/17 13:55 shellfish derived Allergy Severe Hives Verified 08/03/17 13:55 Iodinated Contrast- Oral and Allergy Intermediate Hives Verified 08/03/17 13:55 IV Dye celecoxib Allergy Hives Verified 08/03/17 13:55 Home Medications: Home Medications Diltiazem CD CAP* [Cardizem CD CAP*] 240 mg PO DAILY 10/19/17 [History Confirmed 10/19/17] Fluticasone HFA 110 mcg(NF) [Flovent HFA 110 mcg(NF)] 2 puff INH BID 10/19/17 [ History Confirmed 10/19/17] Metoprolol Succinate XL TAB* [Toprol XL TAB*] 75 mg PO DAILY 10/19/17 [History Confirmed 10/19/17] PMH/Surg Hx/FS Hx/Imm Hx Endocrine/Hematology History: Reports: Hx Anticoagulant Therapy, Hx Diabetes - DM II, Hx Thyroid Disease, Hx Anemia Cardiovascular History: Reports: Hx Cardiac Arrest, Hx Congestive Heart Failure , Hx Coronary Artery Disease, Hx Deep Vein Thrombosis, Hx Hypercholesterolemia, Hx Hypotension, Hx Hypertension, Hx Peripheral Vascular Disease, Hx Valvular Heart Disease, Other Cardiovascular Problems/Disorders - CAD, DVT, valve replacement, CABG Denies: Hx Pacemaker/ICD Respiratory History: Reports: Hx Asthma, Hx Chronic Obstructive Pulmonary Disease (COPD), Hx Pneumonia, Hx Pulmonary Embolism, Hx Sleep Apnea, Other Respiratory Problems/Disorders - home o2, 2.5L GI History: Reports: Hx Diverticulosis, Hx Gall Bladder Disease, Hx Gastroesophageal Reflux Disease, Hx Gastrointestinal Bleed - 08/22/16 admission, Hx Hiatal Hernia, Other GI Disorders - DIVERTICULITIS, SBO with colostomy History: Reports: Hx Kidney Stones, Hx Renal Disease - KIDNEY STONES Denies: Hx Dialysis, Other Problems/Disorders Musculoskeletal History: Reports: Hx Arthritis - legs and shoulders, Hx Back Problems, Hx Bursitis, Hx Scoliosis, Other Musculoskeletal History - Left hip replacement Denies: Hx Osteoporosis Sensory History: Reports: Hx Contacts or Glasses Denies: Hx Deafness, Hx Hearing Aid Opthamlomology History: Reports: Hx Contacts or Glasses Neurological History: Denies: Hx Dementia, Hx Developmental Delay, Hx Headaches, Hx Migraine, Hx Nerve Disease, Hx Seizures, Hx Spinal Cord Injury, Hx Transient Ischemic Attacks (TIA), Other Neuro Impairments/Disorders Psychiatric History: Reports: Hx Anxiety, Hx Depression Denies: Hx Substance Abuse - Surgical History Surgery Procedure, Year, and Place: TUBAL LIGATION 1979, [facility] , CHOLECYSTECTOMY [facility], 2008, KIDNEY STONES REMOVED 1998, [facility], TRIPLE BYPASS, HEART VALVE REPLACEMENT 2010, [facility], LEFT HIP REPLACED, 2009, [facility]. TONSILECTOMY A CHILD. COLOSTOMY 2016 Hx Anesthesia Reactions: No - Immunization History Date of Tetanus Vaccine: Up to date Date of Influenza Vaccine: Fall 2011 Infectious Disease History: No Infectious Disease History: Reports: Hx of Known/Suspected MRSA - 08/22/16 [facility] + MRSA nares, Hx Shingles Denies: Hx Hepatitis, Hx Human Immunodeficiency Virus (HIV), Traveled Outside the [place] in Last 30 Days - Family History Known Family History: Positive: Cardiac Disease, Other - neg: anesthesia reaction - Social History Alcohol Use: Rare Hx Substance Use: No Substance Use Type: Reports: None Hx Tobacco Use: Yes Smoking Status (MU): Former Smoker Type: Cigarettes Have You Smoked in the Last Year: No Review of Systems Positive: Palpitations, Chest Pain Positive: Shortness Of Breath All Other Systems Reviewed And Are Negative: Yes Physical Exam - Summary Physical Exam Summary: VITAL SIGNS: Reviewed. GENERAL: Patient is a nervous female who is lying comfortable in the stretcher. Patient is not in any acute respiratory or pain distress. HEAD AND FACE: No signs of trauma. No ecchymosis, hematomas or skull depressions. No sinus tenderness. EYES: PERRLA, EOMI x 2, No injected conjunctiva, no nystagmus. EARS: Hearing grossly intact. Ear canals and tympanic membranes are within normal limits. MOUTH: Oropharynx within normal limits. NECK: Supple, trachea is midline, no adenopathy, no JVD, no carotid bruit, no c- spine tenderness, neck with full ROM. CHEST: Symmetric, no tenderness at palpation LUNGS: Clear to auscultation bilaterally. No wheezing or crackles. CVS: Irregular rate and rhythm, in A Fib with RVR, S1 and S2 present, no murmurs or gallops appreciated. ABDOMEN: Soft, non-tender. No signs of distention. No rebound no guarding, and no masses palpated. Bowel sounds are normal. EXTREMITIES: FROM in all major joints, no edema, no cyanosis or clubbing. NEURO: Alert and oriented x 3. No acute neurological deficits. Speech is normal and follows commands. SKIN: Dry and warm Triage Information Reviewed: Yes Vital Signs On Initial Exam: Initial Vitals Temp Pulse Resp BP Pulse Ox 99.0 F 155 26 126/99 97 10/19/17 12:26 10/19/17 12:26 10/19/17 12:10/19/17 12:10/19/17 12:26 Vital Signs Reviewed: Yes Diagnostics - Vital Signs Vital Signs Temp Pulse Resp BP Pulse Ox 10/19/17 12: 99.0 F 155 26 126/99 97 - Laboratory Lab Results: Lab Results 10/19/17 10/19/17 10/19/17 Range/Units 12:26 12:26 12:26 WBC 11.7 H (3.5-10.8) 10^3/ul RBC 4.67 (4.0-5.4) 10^6/ul Hgb 11.6 L (12.0-16.0) g/dl Hct 39 (35-47) % MCV 83 (80-97) fL MCH 25 L (27-31) pg MCHC 30 L (31-36) g/dl RDW 18 H (10.5-15) % Plt Count 188 (150-450) 10^3/ul MPV 10.1 (7.4-10.4) um3 Neut % (Auto) 79.3 (38-83) % Lymph % (Auto) 11.8 L (25-47) % Johnston % (Auto) 7.8 H (0-7) % Eos % (Auto) 0.1 (0-6) % Baso % (Auto) 1.0 (0-2) % Absolute Neuts (auto) 9.2 H (1.5-7.7) 10^3/ul Absolute Lymphs (auto) 1.4 (1.0-4.8) 10^3/ul Absolute Monos (auto) 0.9 H (0-0.8) 10^3/ul Absolute Eos (auto) 0 (0-0.6) 10^3/ul Absolute Basos (auto) 0.1 (0-0.2) 10^3/ul Absolute Nucleated RBC 0 10^3/ul Nucleated RBC % 0.3 Sodium 133 L (139-145) mmol/L Potassium 4.1 (3.5-5.0) mmol/L Chloride 98 L (101-111) mmol/L Carbon Dioxide 24 (22-32) mmol/L Anion Gap 11 (2-11) mmol/L BUN 23 (6-24) mg/dL Creatinine 1.57 H (0.51-0.95) mg/dL Est GFR ( Amer) 42.4 (>60) Est GFR (Non-Af Amer) 33.0 (>60) BUN/Creatinine Ratio 14.6 (8-20) Glucose 125 H (70-100) mg/dL Lactic Acid 4.2 H* (0.5-2.0) mmol/L Calcium 8.8 (8.6-10.3) mg/dL Magnesium 1.7 L (1.9-2.7) mg/dL Total Bilirubin 0.70 (0.2-1.0) mg/dL AST 511 H (13-39) U/L ALT Pending Alkaline Phosphatase 96 (34-104) U/L Total Creatine Kinase 29 (10-223) U/L CK-MB (CK-2) 1.2 (0.6-6.3) ng/mL Troponin I 0.02 (<0.04) ng/mL B-Natriuretic Peptide ( - 100) pg/mL Total Protein 7.9 (6.4-8.9) g/dL Albumin 3.5 (3.2-5.2) g/dL Globulin 4.4 H (2-4) g/dL Albumin/Globulin Ratio 0.8 L (1-3) TSH Pending Digoxin Pending 10/19/17 Range/Units 12:26 WBC (3.5-10.8) 10^3/ul RBC (4.0-5.4) 10^6/ul Hgb (12.0-16.0) g/dl Hct (35-47) % MCV (80-97) fL MCH (27-31) pg MCHC (31-36) g/dl RDW (10.5-15) % Plt Count (150-450) 10^3/ul MPV (7.4-10.4) um3 Neut % (Auto) (38-83) % Lymph % (Auto) (25-47) % Johnston % (Auto) (0-7) % Eos % (Auto) (0-6) % Baso % (Auto) (0-2) % Absolute Neuts (auto) (1.5-7.7) 10^3/ul Absolute Lymphs (auto) (1.0-4.8) 10^3/ul Absolute Monos (auto) (0-0.8) 10^3/ul Absolute Eos (auto) (0-0.6) 10^3/ul Absolute Basos (auto) (0-0.2) 10^3/ul Absolute Nucleated RBC 10^3/ul Nucleated RBC % Sodium (139-145) mmol/L Potassium (3.5-5.0) mmol/L Chloride (101-111) mmol/L Carbon Dioxide (22-32) mmol/L Anion Gap (2-11) mmol/L BUN (6-24) mg/dL Creatinine (0.51-0.95) mg/dL Est GFR ( Amer) (>60) Est GFR (Non-Af Amer) (>60) BUN/Creatinine Ratio (8-20) Glucose (70-100) mg/dL Lactic Acid (0.5-2.0) mmol/L Calcium (8.6-10.3) mg/dL Magnesium (1.9-2.7) mg/dL Total Bilirubin (0.2-1.0) mg/dL AST (13-39) U/L ALT Alkaline Phosphatase (34-104) U/L Total Creatine Kinase (10-223) U/L CK-MB (CK-2) (0.6-6.3) ng/mL Troponin I (<0.04) ng/mL B-Natriuretic Peptide 441 H ( - 100) pg/mL Total Protein (6.4-8.9) g/dL Albumin (3.2-5.2) g/dL Globulin (2-4) g/dL Albumin/Globulin Ratio (1-3) TSH Digoxin Result Diagrams: 10/19/17 12:26 10/19/17 12:26 Lab Statement: Any lab studies that have been ordered have been reviewed, and results considered in the medical decision making process. - Radiology CXR Radiology Interpretation Completed By: Radiologist - 1. CARDIOMEGALY. 2. PULMONARY VASCULAR CONGESTION. 3. SMALL LEFT PLEURAL EFFUSION ED physician reviewed this report. - EKG 1217 Cardiac Rate: Tachycardia - 153 bpm EKG Rhythm: Atrial Fibrillation EKG Interpretation: No ST elevations Course/Dx - Course Assessment/Plan: This patient is a 66-year-old female who presents to the emergency department with chief complaint of having chest pain, shortness of breath and palpitations. Initial assessment the patient is a negative fibrillation with RVR. 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 Present medications. Heart rate decreased to 92- 110. Blood tests without any significant abnormality except for what was a count of 11.7, sodium 133, creatinine 1.5, lactic acid 4.2, magnesium is 1.7, BNP is 441. At this point the patient is hemodynamically stable and she feels better. Chest x-ray impression: Cardiomegaly, pulmonary vascular congestion, a small left pleural effusion. I discuss my physical exam, findings and test results with Dr. Neely from the hospitalist services and he agrees to admit patient to his services. Patient is hemodynamically stable alert and oriented x 3. - Diagnoses Provider Diagnoses: Atrial fibrillation with RVR, Chest pain, Atrial fibrillation - Physician Notifications Discussed Care Of Patient With: Sena Neely Time Discussed With Above Provider: 13:06 Instructed by Provider To: Other - Accepts pt for admission. Discharge - Sign-Out/Discharge Documenting (check all that apply): Discharge/Admit/Transfer - Admit - Discharge Plan Condition: Stable Disposition: ADMITTED TO [facility] Referrals: Kajal Simons MD [Primary Care Provider] - - Billing Disposition and Condition Condition: STABLE Disposition: HOSP-[facility] The documentation as recorded by the Jessica nowak Rebecca accurately reflects the service I personally performed and the decisions made by Onesimo cortes Walter, MD.
[2017-10-20] MEDS: traZODone TAB* 100 MG PO SCH (21:39)
[2017-10-20] MEDS: Pregabalin CAP(*) 50 MG PO SCH (21:40)
[2017-10-20] MEDS: Insulin GLARGINE(*) 1 UNITS UNIT SUBCUT SCH (21:40)
[2017-10-21] MEDS: methylPREDNISolone SOD 40 MG* 1 ML VIAL IV SCH ×2 (02:50→15:31)
[2017-10-21] MEDS: Heparin VIAL(*) 5000 UNITS/ML VIAL (FIVE THOUSAND) SUBCUT SCH ×3 (05:59→22:03)
[2017-10-21] MEDS: Sertraline* 100 MG TAB PO SCH (08:12)
[2017-10-21] MEDS: Ezetimibe TAB* 10 MG PO SCH (08:12)
[2017-10-21] MEDS: Aspirin EC TAB* 81 MG TAB.EC PO SCH (08:12)
[2017-10-21] MEDS: Levothyroxine TAB* 100 MCG TAB PO SCH (08:13)
[2017-10-21] MEDS: Atorvastatin* 80 MG TAB PO SCH (08:13)
[2017-10-21] MEDS: Metoprolol Succinate XL TAB* 25 MG PO SCH (08:13)
[2017-10-21] MEDS: metroNIDAZOLE TAB* 250 MG PO SCH (08:13)
[2017-10-21] MEDS: Diltiazem CD CAP* 240 MG PO SCH (08:13)
[2017-10-21] MEDS: Torsemide TAB* 20 MG PO SCH ×2 (08:13→22:03)
[2017-10-21] MEDS: Digoxin TAB* 0.25 MG PO SCH (08:13)
[2017-10-21] MEDS: Insulin LISPRO* 1 UNITS UNIT SUBCUT SCH ×3 (09:00→17:35)
[2017-10-21] MEDS: HYDROcodone/ACETAMIN 5-325 MG* 1 TAB PO PRN (09:03)
[2017-10-21] MEDS: Tiotropium CAP.INH* CAP.INH/18 MCG (USE ORDER SET !) INH SCH (09:08)
[2017-10-21] MEDS: cefTRIAXone(*) 2 GM in NS 0.9% 100 ML* 100 ML IVPB SCH (15:17)
--- NOTE | 2017-10-21 16:06 | PN ---
Subjective Date of Service: 10/21/17 Interval History: HOSPITALIST PROGRESS NOTE Patient seen and examined at bedside. Care reviewed and d/w Leodan Marlow RN. She feels better today. Had some chest pain after eating eggs for breakfast. Breathing is much improved and palpitations too. Family History: Unchanged from Admission Social History: Unchanged from Admission Past Medical History: Unchanged from Admission Objective Active Medications: Acetaminophen (Tylenol Tab*) 650 mg PO Q4H PRN PRN Reason: FEVER/PAIN Last Admin: 10/21/17 08:12 Dose: 650 mg Hydrocodone Bitart/Acetaminophen ([place] 5-325 Tab*) 1 tab PO Q4H PRN PRN Reason: PAIN Last Admin: 10/21/17 09:03 Dose: 1 tab Al Hydrox/Mg Hydrox/Simethicone (Maalox Plus*) 30 ml PO Q6H PRN PRN Reason: INDIGESTION Albuterol (Ventolin Hfa Inhaler*) 2 puff INH Q4H PRN PRN Reason: SOB/WHEEZING Alprazolam (Xanax Tab*) 0.25 mg PO TID PRN PRN Reason: ANXIETY Last Admin: 10/20/17 03:14 Dose: 0.25 mg Amoxicillin/Clavulanate Potassium (Augmentin Tab*) 500 mg PO BID [facility] Aspirin (Aspirin Ec Tab*) 81 mg PO DAILY [facility] Last Admin: 10/21/17 08:12 Dose: 81 mg Atorvastatin Calcium (Lipitor*) 80 mg PO DAILY [facility] Last Admin: 10/21/17 08:13 Dose: 80 mg Dextrose (D50w Syringe 50 Ml*) 12.5 gm IV PUSH .FOR FS < 60 - SS PRN PRN Reason: FS < 60 Digoxin (Lanoxin Tab*) 0.25 mg PO DAILY [facility] Last Admin: 10/21/17 08:13 Dose: 0.25 mg Diltiazem HCl (Cardizem Cd Cap*) 240 mg PO DAILY [facility] Last Admin: 10/21/17 08:13 Dose: 240 mg Ezetimibe (Zetia Tab*) 10 mg PO DAILY [facility] Last Admin: 10/21/17 08:12 Dose: 10 mg Heparin Sodium (Porcine) (Heparin Vial(*)) 5,000 units SUBCUT Q8HR [facility] Last Admin: 10/21/17 15:31 Dose: 5,000 units Insulin Glargine (Lantus(*)) 10 units SUBCUT BEDTIME [facility] Last Admin: 10/20/17 21:40 Dose: 10 units Insulin Human Lispro (Humalog*) 0 units SUBCUT AC JL PRN Reason: Protocol Last Admin: 10/21/17 13:07 Dose: 3 units Ipratropium [place] (Atrovent 0.5 Mg Neb.Lorie*) 0.5 mg INH Q4H PRN PRN Reason: SOB/WHEEZING Levothyroxine Sodium (Synthroid Tab*) 200 mcg PO DAILY [facility] Last Admin: 10/21/17 08:13 Dose: 200 mcg Methylprednisolone Sodium Succinate (Solu-Medrol 40 Mg) 40 mg IV Q12H [facility] Last Admin: 10/21/17 15:31 Dose: 40 mg Metoprolol Succinate (Toprol Xl Tab*) 75 mg PO DAILY [facility] Last Admin: 10/21/17 08:13 Dose: 75 mg Mometasone Furoate (Asmanex 220 Mcg Mdi *) 2 puff INH BEDTIME [facility] Last Admin: 10/20/17 20:33 Dose: 2 puff Pregabalin (Lyrica Cap(*)) 50 mg PO BEDTIME [facility] Last Admin: 10/20/17 21:40 Dose: 50 mg Sertraline HCl (Zoloft*) 200 mg PO DAILY [facility] Last Admin: 10/21/17 08:12 Dose: 200 mg Tiotropium [place] (Spiriva Cap.Inh*) 1 cap INH DAILY [facility] Last Admin: 10/21/17 09:08 Dose: 1 cap Torsemide (Demadex*) 40 mg PO BID [facility] Last Admin: 10/21/17 08:13 Dose: 40 mg Trazodone HCl (Desyrel Tab*) 100 mg PO BEDTIME [facility] Last Admin: 10/20/17 21:39 Dose: 100 mg Vital Signs - 8 hr 10/21/17 10/21/17 10/21/17 08:13 09:03 09:08 Pulse Rate 87 83 Respiratory 16 20 Rate O2 Sat by Pulse 98 Oximetry 10/21/17 13:08 Pulse Rate Respiratory 18 Rate O2 Sat by Pulse Oximetry Oxygen Devices in Use Now: Nasal Cannula Appearance: Pleasant lady sitting up in a recliner in NAD. Eyes: No Scleral Icterus Ears/Nose/Mouth/Throat: Mucous Membranes Moist Neck: Trachea Midline Respiratory: Symmetrical Chest Expansion and Respiratory Effort, - - BS+ bilaterally decreased with no added sounds Cardiovascular: - - Normal S1 and S2, irregularly irregular Neurological: Alert and Oriented x 3 Result Diagrams: 10/20/17 06:19 10/20/17 06:19 Assess/Plan/Problems-Billing Assessment: Mrs. Ziegler is a 66yo F with PMH of obesity, Afib, COPD on home O2 2 liters/ min, PVF, GERD, diastolic CHF with EF 55%, chronic pain, HTN, DVT, PE, RYAN, diabetes, bowel obstruction requiring colostomy, CAD s/p CABG, s/p AVR (porcine) , HLD, hypothyroidism, recent admission for large LLQ mass/probable abscess, who presented to ED with c/o chest pain and dyspnea, found to have COPD exacerbation and rapid Afib. - Patient Problems (1) Chest pain Comment: - Patient describes chest discomfort when she's in rapid Afib, improved with rate control. - Troponins are negative. - V/Q scan low probability for PE. - Her episode today was likely secondary to GERD- she was on Nexium in the past , but her insurance didn't cover it anymore and she's not taking any PPI. EKG showed no acute ischemic changes and serial troponins are negative. Start Omeprazole. (2) COPD (chronic obstructive pulmonary disease) Comment: - With exacerbation, but no signs of infection at this time. - Continue bronchodilators and steroids. (3) Atrial fibrillation with RVR Comment: - Rate is better controlled - this was likely precipitated by COPD exacerbation. - Off Cardizem drip now - continue PO Cardizem and digoxin. (4) Transaminitis Comment: - Suspected secondary to poor perfusion in the setting of rapid Afib. - Improving. (5) Abdominal mass, LLQ (left lower quadrant) Comment: - CT shows the mass is stable - d/w ID - plan for 3 more weeks of PO Augmentin. (6) Diabetes Comment: - Add Lantus and continue Lispro SS. (7) DVT prophylaxis Comment: - SQ heparin. (8) Full code status Status and Disposition: Inpatient.
[2017-10-21] MEDS: Omeprazole CAP* 20 MG PO SCH (17:36)
[2017-10-21] MEDS: Mometasone 220 MCG MDI INH SCH (19:31)
[2017-10-21] MEDS: Insulin GLARGINE(*) 1 UNITS UNIT SUBCUT SCH (22:03)
[2017-10-21] MEDS: traZODone TAB* 100 MG PO SCH (22:03)
[2017-10-21] MEDS: Pregabalin CAP(*) 50 MG PO SCH (22:03)
[2017-10-21] MEDS: Amoxicillin/Clavulanate TAB* 500 MG PO SCH (22:03)
--- NOTE | 2017-10-21 23:47 | CONS ---
CONSULTATION REPORT: DATE OF CONSULT: 10/21/17 REQUESTING PHYSICIAN: Joanne Tena MD CONSULTING SERVICE: Infectious Disease. REASON FOR CONSULT: Left lower quadrant abdominal infection. IMPRESSION: 1. Recent treatment for left lower quadrant intraabdominal abscess presumed to be diverticular in nature, improving abdominal flank pain and C-reactive protein while on ceftriaxone and Flagyl. Admitted now with dyspnea and atrial fibrillation with rapid ventricular response. I think they are unrelated. Her antibiotic treatment had not changed in effect and CT shows continued improvement in the left lower quadrant abnormality. 2. Obesity. 3. Atrial fibrillation. 4. Chronic obstructive pulmonary disease, on supplemental oxygen. RECOMMENDATIONS: Stop ceftriaxone and Flagyl. Start Augmentin 500 mg by mouth twice daily. HISTORY OF PRESENT ILLNESS: This is a 66-year-old woman with a history of colostomy and left lower quadrant felt to be abscess. This was seen as a mass on a CT scan, that as well as her left flank pain, fever, and C-reactive protein have been steadily improving while on ceftriaxone and Flagyl. She had a PICC line removed Tuesday and the nurse at that time had her come into the hospital because of tachycardia. Her heart rate in the ER was in the 170s, her blood pressure in the 70s. She was started on IV diltiazem. She has been on ceftriaxone here. She is afebrile. She has had no fevers, sweats, or left- sided abdominal pain. Chest x- ray showed cardiomegaly and pulmonary vascular congestion, small pleural effusion. PAST MEDICAL HISTORY: 1. Morbid obesity. 2. History of GI bleed. 3. Atrial fibrillation. 4. COPD, on supplemental oxygen. 5. Diastolic heart failure. 6. Left-sided hydronephrosis. 7. Peripheral vascular disease. 8. Gastroesophageal reflux disease. 9. Chronic pain. 10. Hypertension. 11. Obstructive sleep apnea. 12. Diabetes. 13. Bowel obstruction, status post colostomy. 14. Hypothyroidism. 15. Status post aortic valve replacement, bioprosthetic valve. 16. Venothrombotic disease. 17. Coronary artery disease, status post coronary artery bypass. 18. Cholecystectomy. 19. Status post hernia repair. ALLERGIES: SHELLFISH, IODINE, CELEBREX, caused hives. MEDICATIONS: 1. Tylenol and Xanax as needed. 2. Ceftriaxone. 3. Aspirin. 4. Lipitor. 5. Digoxin. 6. Diltiazem. 7. Zetia. 8. Heparin subcutaneous injection. 9. Insulin glargine. 10. Levothyroxine. 11. Methylprednisolone. 12. Singulair. 13. Pregabalin. 14. Sertraline. 15. Flagyl 500 mg by mouth twice daily. 16. Trazodone. 17. Torsemide. SOCIAL HISTORY: She lives in [place]. She has no travels or sick contacts. FAMILY HISTORY: No recurrent infections. REVIEW OF SYSTEMS: All negative to 14-point review of systems except as noted above. PHYSICAL EXAM: Vital Signs: Temperature 36, heart rate 80, respiratory rate 20 , blood pressure 105/62, oxygen saturation 98% on 4 L. General: She is awake, not in distress. Neurologic: She is oriented x3. Follows all commands. HEENT : There is no conjunctival hemorrhage. Oropharynx without lesions. Neck: Supple without mass. Heart: Regular rate and rhythm without murmurs, rubs, or gallops. Lungs: Clear to auscultation bilaterally. Abdomen: Soft, nontender, and nondistended. There are bowel sounds present. There is left-sided ostomy repair and liquid stool. Skin: There are no rashes or splinter hemorrhages. Musculoskeletal: There is no spinal tenderness to palpation or joint synovitis. DIAGNOSTIC STUDIES/LAB DATA: White blood cell count 7, hemoglobin 10, platelets 150. Creatinine is 1.1. CRP 33. Urinalysis shows leukocyte esterase. Please see impression and recommendations outlined above, which I have discussed with Dr. Tena. Thanks for asking me to see Ms. Ziegler in consultation. [id number]/[facility] #: [id number]
[2017-10-22] MEDS: methylPREDNISolone SOD 40 MG* 1 ML VIAL IV SCH ×2 (03:32→14:40)
[2017-10-22] MEDS: Heparin VIAL(*) 5000 UNITS/ML VIAL (FIVE THOUSAND) SUBCUT SCH ×3 (06:09→21:05)
[2017-10-22 06:57] LABS: Hematocrit 33 % (35-47); Hemoglobin 10.4 g/dl (12.0-16.0); Mean Corpuscular HGB Conc 32 g/dl (31-36); Mean Corpuscular Hemoglobin 26 pg (27-31); Mean Corpuscular Volume 81 fL (80-97); Red Blood Count 4.03 10^6/ul (4.0-5.4); Red Cell Distribution Width 18 % (10.5-15); White Blood Count 7.5 10^3/ul (3.5-10.8)
[2017-10-22 06:58] LABS: ABS Basophils 0 10^3/ul (0-0.2); ABS Eosinophils 0 10^3/ul (0-0.6); ABS Lymphocytes 0.6 10^3/ul (1.0-4.8); ABS Monocytes 0.4 10^3/ul (0-0.8); ABS Neutrophils 6.6 10^3/ul (1.5-7.7)
[2017-10-22 07:25] LABS: EGFR Non-African American 39.9 (>60)
[2017-10-22 07:46] LABS: Monocytes % 3 % (0-7); Tear Drop Cells 1+
[2017-10-22 07:54] LABS: Mean Platelet Volume 10.2 um3 (7.4-10.4); Platelet Count 134 10^3/ul (150-450)
[2017-10-22] MEDS: Tiotropium CAP.INH* CAP.INH/18 MCG (USE ORDER SET !) INH SCH (09:08)
[2017-10-22] MEDS: Insulin LISPRO* 1 UNITS UNIT SUBCUT SCH ×3 (10:26→17:12)
[2017-10-22] MEDS: Metoprolol Succinate XL TAB* 25 MG PO SCH (10:27)
[2017-10-22] MEDS: Omeprazole CAP* 20 MG PO SCH ×2 (10:27→17:12)
[2017-10-22] MEDS: Torsemide TAB* 20 MG PO SCH ×2 (10:27→21:02)
[2017-10-22] MEDS: Atorvastatin* 80 MG TAB PO SCH (10:28)
[2017-10-22] MEDS: Sertraline* 100 MG TAB PO SCH (10:28)
[2017-10-22] MEDS: Amoxicillin/Clavulanate TAB* 500 MG PO SCH ×2 (10:28→21:02)
[2017-10-22] MEDS: Levothyroxine TAB* 100 MCG TAB PO SCH (10:28)
[2017-10-22] MEDS: Diltiazem CD CAP* 240 MG PO SCH (10:29)
[2017-10-22] MEDS: Digoxin TAB* 0.25 MG PO SCH (10:29)
[2017-10-22] MEDS: Ezetimibe TAB* 10 MG PO SCH (10:29)
[2017-10-22] MEDS: Aspirin EC TAB* 81 MG TAB.EC PO SCH (10:29)
--- NOTE | 2017-10-22 15:06 | PN ---
Subjective Date of Service: 10/22/17 Interval History: HOSPITALIST PROGRESS NOTE Patient seen and examined at bedside. Care reviewed and d/w Leodan Marlow RN. She feels 75% better today, but still has some dyspnea. No further episodes of chest pain. Family History: Unchanged from Admission Social History: Unchanged from Admission Past Medical History: Unchanged from Admission Objective Active Medications: Acetaminophen (Tylenol Tab*) 650 mg PO Q4H PRN PRN Reason: FEVER/PAIN Last Admin: 10/21/17 08:12 Dose: 650 mg Hydrocodone Bitart/Acetaminophen ([place] 5-325 Tab*) 1 tab PO Q4H PRN PRN Reason: PAIN Last Admin: 10/21/17 09:03 Dose: 1 tab Al Hydrox/Mg Hydrox/Simethicone (Maalox Plus*) 30 ml PO Q6H PRN PRN Reason: INDIGESTION Albuterol (Ventolin Hfa Inhaler*) 2 puff INH Q4H PRN PRN Reason: SOB/WHEEZING Alprazolam (Xanax Tab*) 0.25 mg PO TID PRN PRN Reason: ANXIETY Last Admin: 10/20/17 03:14 Dose: 0.25 mg Amoxicillin/Clavulanate Potassium (Augmentin Tab*) 500 mg PO BID [facility] Last Admin: 10/22/17 10:28 Dose: 500 mg Aspirin (Aspirin Ec Tab*) 81 mg PO DAILY [facility] Last Admin: 10/22/17 10:29 Dose: 81 mg Atorvastatin Calcium (Lipitor*) 80 mg PO DAILY [facility] Last Admin: 10/22/17 10:28 Dose: 80 mg Dextrose (D50w Syringe 50 Ml*) 12.5 gm IV PUSH .FOR FS < 60 - SS PRN PRN Reason: FS < 60 Digoxin (Lanoxin Tab*) 0.25 mg PO DAILY [facility] Last Admin: 10/22/17 10:29 Dose: 0.25 mg Diltiazem HCl (Cardizem Cd Cap*) 240 mg PO DAILY [facility] Last Admin: 10/22/17 10:29 Dose: 240 mg Ezetimibe (Zetia Tab*) 10 mg PO DAILY [facility] Last Admin: 10/22/17 10:29 Dose: 10 mg Heparin Sodium (Porcine) (Heparin Vial(*)) 5,000 units SUBCUT Q8HR [facility] Last Admin: 10/22/17 14:40 Dose: 5,000 units Insulin Glargine (Lantus(*)) 10 units SUBCUT BEDTIME [facility] Last Admin: 10/21/17 22:03 Dose: 10 units Insulin Human Lispro (Humalog*) 0 units SUBCUT AC JL PRN Reason: Protocol Last Admin: 10/22/17 12:08 Dose: 12 units Ipratropium [place] (Atrovent 0.5 Mg Neb.Lorie*) 0.5 mg INH Q4H PRN PRN Reason: SOB/WHEEZING Levothyroxine Sodium (Synthroid Tab*) 200 mcg PO DAILY [facility] Last Admin: 10/22/17 10:28 Dose: 200 mcg Methylprednisolone Sodium Succinate (Solu-Medrol 40 Mg) 40 mg IV Q12H [facility] Last Admin: 10/22/17 14:40 Dose: 40 mg Metoprolol Succinate (Toprol Xl Tab*) 75 mg PO DAILY [facility] Last Admin: 10/22/17 10:27 Dose: 75 mg Mometasone Furoate (Asmanex 220 Mcg Mdi *) 2 puff INH BEDTIME [facility] Last Admin: 10/21/17 19:31 Dose: 2 puff Omeprazole (Prilosec Cap*) 20 mg PO BID@0730,1630 [facility] Last Admin: 10/22/17 10:27 Dose: 20 mg Pregabalin (Lyrica Cap(*)) 50 mg PO BEDTIME [facility] Last Admin: 10/21/17 22:03 Dose: 50 mg Sertraline HCl (Zoloft*) 200 mg PO DAILY [facility] Last Admin: 10/22/17 10:28 Dose: 200 mg Tiotropium Clawson (Spiriva Cap.Inh*) 1 cap INH DAILY [facility] Last Admin: 10/22/17 09:08 Dose: 1 cap Torsemide (Demadex*) 40 mg PO BID [facility] Last Admin: 10/22/17 10:27 Dose: 40 mg Trazodone HCl (Desyrel Tab*) 100 mg PO BEDTIME [facility] Last Admin: 10/21/17 22:03 Dose: 100 mg Vital Signs - 8 hr 10/22/17 10/22/17 10/22/17 08:00 08:03 09:10 Temperature 97.4 F Pulse Rate 42 55 Respiratory 18 18 20 Rate Blood Pressure 117/66 (mmHg) O2 Sat by Pulse 98 100 Oximetry 10/22/17 10:29 Temperature Pulse Rate 90 Respiratory Rate Blood Pressure (mmHg) O2 Sat by Pulse Oximetry Oxygen Devices in Use Now: Nasal Cannula - 3 liters Appearance: Pleasant morbid obese lady sitting up in a recliner in NAD. Eyes: No Scleral Icterus Ears/Nose/Mouth/Throat: Mucous Membranes Moist Neck: Trachea Midline Respiratory: Symmetrical Chest Expansion and Respiratory Effort, - - BS+ bilaterally diminished with no added sounds Cardiovascular: - - Normal S1 and S2, irregularly irregular Neurological: Alert and Oriented x 3 Result Diagrams: 10/22/17 06:40 10/22/17 08:51 Assess/Plan/Problems-Billing Assessment: Mrs. Ziegler is a 66yo F with PMH of obesity, Afib, COPD on home O2 2 liters/ min, PVF, GERD, diastolic CHF with EF 55%, chronic pain, HTN, DVT, PE, RYAN, diabetes, bowel obstruction requiring colostomy, CAD s/p CABG, s/p AVR (porcine) , HLD, hypothyroidism, recent admission for large LLQ mass/probable abscess, who presented to ED with c/o chest pain and dyspnea, found to have COPD exacerbation and rapid Afib. - Patient Problems (1) Chest pain Comment: - Patient describes chest discomfort when she's in rapid Afib, improved with rate control. - Troponins are negative. - V/Q scan low probability for PE. - Episode yesterday was likely secondary to GERD- she was on Nexium in the past , but her insurance didn't cover it anymore and she's not taking any PPI. EKG showed no acute ischemic changes and serial troponins are negative. Continue Omeprazole. (2) COPD (chronic obstructive pulmonary disease) Comment: - With exacerbation, but no signs of infection at this time. - Continue bronchodilators and steroids. (3) Atrial fibrillation with RVR Comment: - HR controlled with Digoxin, Diltiazem, and Metoprolol. (4) Transaminitis Comment: - Suspected secondary to poor perfusion in the setting of rapid Afib. - Improving. (5) Abdominal mass, LLQ (left lower quadrant) Comment: - CT shows the mass is stable - d/w ID - plan for 3 more weeks of PO Augmentin. (6) Diabetes Comment: - Continue Lantus and Lispro SS. (7) DVT prophylaxis Comment: - SQ heparin. (8) Full code status Status and Disposition: Inpatient. Anticipate d/c in AM.
[2017-10-22] MEDS: Mometasone 220 MCG MDI INH SCH (20:47)
[2017-10-22] MEDS: traZODone TAB* 100 MG PO SCH (21:02)
[2017-10-22] MEDS: Pregabalin CAP(*) 50 MG PO SCH (21:02)
[2017-10-22] MEDS: Insulin GLARGINE(*) 1 UNITS UNIT SUBCUT SCH (21:12)
[2017-10-23] MEDS: methylPREDNISolone SOD 40 MG* 1 ML VIAL IV SCH ×3 (03:21→14:21)
[2017-10-23] MEDS: Heparin VIAL(*) 5000 UNITS/ML VIAL (FIVE THOUSAND) SUBCUT SCH ×2 (05:35→14:13)
[2017-10-23] MEDS: Tiotropium CAP.INH* CAP.INH/18 MCG (USE ORDER SET !) INH SCH (08:10)
[2017-10-23] MEDS: Insulin LISPRO* 1 UNITS UNIT SUBCUT SCH ×2 (08:30→12:28)
[2017-10-23] MEDS: Ezetimibe TAB* 10 MG PO SCH (08:31)
[2017-10-23] MEDS: Digoxin TAB* 0.25 MG PO SCH (08:31)
[2017-10-23] MEDS: Torsemide TAB* 20 MG PO SCH (08:31)
[2017-10-23] MEDS: Diltiazem CD CAP* 240 MG PO SCH (08:31)
[2017-10-23] MEDS: Atorvastatin* 80 MG TAB PO SCH (08:31)
[2017-10-23] MEDS: Sertraline* 100 MG TAB PO SCH (08:31)
[2017-10-23] MEDS: Amoxicillin/Clavulanate TAB* 500 MG PO SCH (08:31)
[2017-10-23] MEDS: Levothyroxine TAB* 100 MCG TAB PO SCH (08:31)
[2017-10-23] MEDS: Aspirin EC TAB* 81 MG TAB.EC PO SCH (08:31)
[2017-10-23] MEDS: Metoprolol Succinate XL TAB* 25 MG PO SCH (08:31)
[2017-10-23] MEDS: Omeprazole CAP* 20 MG PO SCH (08:31)
[2017-10-23] MEDS ORDERED: Insulin LISPRO* 1 UNITS UNIT SUBCUT ONE (12:09)
[2017-10-23] MEDS ORDERED: Dextrose 50% Syringe 50 ML* 25 GM/50 ML SYRINGE IV PUSH PRN (12:09)
[2017-10-23 13:47] VITALS: BP 111/87
--- NOTE | 2017-10-24 01:14 | DS ---
CC: Dr. Simons; Dr. Arzola; Dr. Jackson DISCHARGE SUMMARY: DATE OF ADMISSION: 10/19/17 DATE OF DISCHARGE: 10/23/17 PRIMARY CARE PROVIDER: Dr. Simons. INFECTIOUS DISEASE SPECIALIST: Dr. Arzola. GENERAL SURGEON: Dr. Jackson. DISCHARGE DIAGNOSES: 1. Acute chronic obstructive pulmonary disease exacerbation. 2. Chest pain, likely secondary to rapid atrial fibrillation and GERD. 3. Atrial fibrillation with rapid ventricular rate. 4. Transaminitis, likely secondary to poor perfusion in the setting of rapid atrial fibrillation. 5. Acute kidney injury, likely secondary to poor perfusion in the setting of rapid atrial fibrillation. SECONDARY DIAGNOSES: 1. Obesity. 2. Atrial fibrillation, not on anticoagulation due to recent GI bleed. 3. Chronic obstructive pulmonary disease, on home oxygen. 4. Gastroesophageal reflux disease. 5. Diastolic congestive heart failure. 6. Chronic pain. 7. Hypertension. 8. DVT. 9. Pulmonary embolism. 10. Obstructive sleep apnea. 11. Diabetes. 12. History of bowel obstruction, requiring colostomy. 13. Coronary artery disease, status post CABG. 14. Status post aortic valve replacement (porcine). 15. Hyperlipidemia. 16. Hypothyroidism. 17. Left lower quadrant abscess still receiving antibiotics. MEDICATION LIST: Extensive, as follows: 1. Trazodone 100 mg p.o. at bedtime. 2. Spiriva 1 capsule inhaled daily. 3. Spironolactone 25 mg p.o. daily. 4. Sertraline 200 mg p.o. daily. 5. Metoprolol succinate 75 mg p.o. daily. 6. Levothyroxine 200 mcg p.o. daily. 7. Hydrocodone/acetaminophen 5/325 mg 1 tablet p.o. q.4 hours p.r.n. pain. 8. Fluticasone HFA 110 mcg 2 puffs inhaled b.i.d. 9. Zetia 10 mg p.o. daily. 10. EpiPen 0.3 mg intramuscular once as needed for severe allergy. 11. Cardizem CD 240 mg p.o. daily. 12. Atorvastatin 80 mg p.o. daily. 13. Aspirin 81 mg p.o. daily. 14. Albuterol HFA 2 puffs inhaled q.4 hours p.r.n. shortness of breath. 15. Alprazolam 0.25 mg p.o. t.i.d. p.r.n. anxiety. 16. Metformin 500 mg p.o. b.i.d. 17. Torsemide 40 mg p.o. daily. 18. Digoxin 0.25 mg p.o. daily. New medications: 1. Prednisone taper as follows: 40 mg p.o. daily for 3 days, then 30 mg for 3 days, then 20 mg for 3 days, then 10 mg for 3 days, then 5 mg for 3 days, then stop. 2. Glipizide 2.5 mg p.o. daily. 3. Lyrica 50 mg p.o. at bedtime. 4. Omeprazole 20 mg p.o. b.i.d. 5. Augmentin 500 mg p.o. b.i.d. for 3 weeks. HOSPITAL COURSE: Mrs. Ziegler is a 66-year-old lady with a past medical history as stated above that presented to the emergency room on 10/19/17 with complaints of chest pain and shortness of breath. Of note is the fact that the patient had a recent admission for sepsis, left lower quadrant intraabdominal abscess and she was receiving IV antibiotics at home. She states that 2 to 3 days prior to admission, she had more shortness of breath than usual with wheezing, not feeling well. On the day of admission, she was seen by her visiting nurse, who went to her home to remove her PICC line and during her evaluation, she noticed that the patient was very tachycardic and hypotensive. As per HPI in the ED, her heart rate was in the 170s with a systolic pressure in the 70s. For more details about her presentation, I refer you to her history and physical. The patient's chest x-ray in the emergency room showed cardiomegaly, pulmonary vascular congestion. She had mild leukocytosis of 11.7 and initially there was concern that may be she was septic secondary to worsening of her intraabdominal infection, but followup CT of the abdomen and pelvis showed a stable soft tissue density on the left hemipelvis. A V/Q scan showed low probability for acute pulmonary embolus. 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 The patient was found to have acute kidney injury on admission with a creatinine of 1.5 from a baseline of 0.7. She was also found to have transaminitis and her LFTs are trending down now, but need to be monitored as outpatient. She did well with bronchodilators, steroids and we just resumed her usual digoxin and Cardizem with significant improvement of her heart rate. She was seen in consultation by Infectious Disease (Dr. Arzola) and his recommendation was to transition her from ceftriaxone and Flagyl to Augmentin twice a day for 3 more weeks and she will need follow up as outpatient to assure that this intraabdominal infection is resolved. The patient was started on high-dose steroids and her glucose became uncontrolled. She is on metformin only as outpatient and her hemoglobin A1c is 7 , so her diabetes is fairly well controlled and I believe this higher numbers now are secondary to steroids. Low-dose glipizide was added to her regimen, but I believe as her steroids are tapered, her glucose will probably improve and glipizide would not be necessary anymore. The patient was advised to check her glucose at home, write her numbers down and take them with her to her appointment with Dr. Simons to decide if the glipizide is still necessary or not. The patient also has a CMP requested to be done on 10/26/17 to monitor her renal function and LFTs. The patient had 1 episode of chest pain after eating eggs. She states that she has a history of GERD and in the past was on Nexium, but her insurance does not cover it anymore, so she is not taking anything for her reflux. Her EKG showed no ischemic changes. Serial troponins were negative. The impression is that this chest pain was non cardiac secondary to GI etiology. She was started on omeprazole with improvement of her symptoms. The patient is medically stable to be discharged home today to follow up with Dr. Simons as outpatient. PHYSICAL EXAMINATION: Vital Signs: Temperature 98.1, heart rate is 80, respiratory rate is 16, oxygen saturation is 100% on 2 L, blood pressure is 111/ 87. General: The patient is a pleasant elderly lady, sitting up in the chair, in no acute distress. CVS: Normal S1, S2. Irregularly irregular. Chest: Breath sounds present bilaterally diminished with no added sounds. Abdomen is soft with colostomy in place. Bowel sounds are present. Neuro: She is alert and oriented x3. Able to move all 4 extremities. DIET: Heart healthy, consistent carb diet. ACTIVITY: As tolerated. DISPOSITION: To home. STATUS WHILE IN THE HOSPITAL: Inpatient. Please keep in mind, this is a summarized version of this patient's complex hospital stay. If you need more information, please feel free to call me at [phone] or please obtain the full medical records. TIME SPENT: Approximately 45 minutes was spent to complete this discharge. [id number]/CPS #: [id number] SERENA
== END 2017-10-23 14:32 | disposition home or self-care (01) | DRG 190 ==
LOC: ED 12:23 → MEDTELE 14:39
PROVIDERS: ADMIT Internal Medicine; ATTEND Internal Medicine
DX: J44.1 Chronic obstructive pulmonary disease with (acute) exacerbation (principal); K65.1 Peritoneal abscess; N17.9 Acute kidney failure, unspecified; I50.32 Chronic diastolic (congestive) heart failure; I95.9 Hypotension, unspecified; I11.0 Hypertensive heart disease with heart failure; I48.2 Chronic atrial fibrillation; E11.51 Type 2 diabetes mellitus with diabetic peripheral angiopathy without gangrene; Z99.81 Dependence on supplemental oxygen; E66.01 Morbid (severe) obesity due to excess calories; E83.42 Hypomagnesemia; R07.9 Chest pain, unspecified; K21.9 Gastro-esophageal reflux disease without esophagitis; G89.29 Other chronic pain; R74.0 Nonspecific elevation of levels of transaminase and lactic acid dehydrogenase [LDH]; G47.33 Obstructive sleep apnea (adult) (pediatric); I25.10 Atherosclerotic heart disease of native coronary artery without angina pectoris; E05.90 Thyrotoxicosis, unspecified without thyrotoxic crisis or storm; I87.8 Other specified disorders of veins; E78.5 Hyperlipidemia, unspecified; E03.9 Hypothyroidism, unspecified; Z68.39 Body mass index [BMI] 39.0-39.9, adult; Z95.2 Presence of prosthetic heart valve; Z95.1 Presence of aortocoronary bypass graft; Z93.3 Colostomy status; Z86.711 Personal history of pulmonary embolism; Z86.718 Personal history of other venous thrombosis and embolism; Z79.84 Long term (current) use of oral hypoglycemic drugs; Z79.82 Long term (current) use of aspirin; Z79.899 Other long term (current) drug therapy; Z91.013 Allergy to seafood; Z88.8 Allergy status to other drugs, medicaments and biological substances; Z91.048 Other nonmedicinal substance allergy status; Z82.49 Family history of ischemic heart disease and other diseases of the circulatory system; Z87.891 Personal history of nicotine dependence
CPT/HCPCS: 36415; 71045; 74176; 78582; 80053; 80162; 81003; 81015; 82550; 82553; 82947; 83036; 83605; 83735; 83880; 84439; 84443; 84481; 84484; 85025; 85060; 86140; 87040; 87086; 93005; 94640; 99285; A9270-GY; A9540; A9558; J0696; J1644; J2920; J3475

== ENCOUNTER 2017-11-29 10:15 | Inpatient (IN) | payer MEDICARE, MEDICAID ==
[2017-11-29] MEDS ORDERED: NS 0.9% 1000 ML* 1,000 ML IV ONE (10:23)
--- NOTE | 2017-11-29 10:25 | ED ---
Lower Extremity - HPI Summary HPI Summary: This patient is a 67 year old F BIBA to ED with a chief complaint of L leg swelling (black and blue) with pain since 4 days ago after waking up in the morning. The CC is described as starting in the groin and radiating down. She reports the pain is mostly on the back side of her leg. The patient rates the pain 8/10 in severity. Symptoms aggravated by movement and palpation. Symptoms alleviated by nothing. Patient reports generalized weakness, decreased appetite (past 4 days), N/V, and difficulty ambulating. Patient denies fever, abdominal pain, and CP. She reports hx of similar swelling and pain to her R leg but not her L leg. She is on 2L O2 every day. The patient is currently not on blood thinners. - History of Current Complaint Stated Complaint: LT LEG SWELLING Hx Obtained From: Patient Onset of Pain: Immediate, Days - 4 days ago Onset/Duration: Days - 4 days ago Pain Scale Used: 0-10 Numeric Timing: Constant, Lasting Days Location: Radiates To - starts near groin and radiates down the leg Associated Signs And Symptoms: Positive: Other - Patient reports generalized weakness, decreased appetite (past 4 days), N/V, and difficulty ambulating. Patient denies fever, abdominal pain, and CP. Aggravating Factor(s): Movement, Other - palpation Alleviating Factor(s): Nothing Able to Bear Weight: No - difficulty ambulating - Allergies/Home Medications Allergies/Adverse Reactions: Allergies Allergy/AdvReac Type Severity Reaction Status Date / Time bee venom protein (honey bee) Allergy Severe Rash Verified 08/03/17 13:55 shellfish derived Allergy Severe Hives Verified 08/03/17 13:55 Iodinated Contrast- Oral and Allergy Intermediate Hives Verified 08/03/17 13:55 IV Dye celecoxib Allergy Hives Verified 08/03/17 13:55 Home Medications: Home Medications Fluticasone HFA 110 mcg(NF) [Flovent HFA 110 mcg(NF)] 2 puff INH BID 11/29/17 [ History Confirmed 11/29/17] Levothyroxine Sodium 175 mcg PO DAILY 11/29/17 [History Confirmed 11/29/17] Omeprazole CAP* [Prilosec CAP* 20 MG] 40 mg PO DAILY 11/29/17 [History Confirmed 11/29/17] PMH/Surg Hx/FS Hx/Imm Hx Endocrine/Hematology History: Reports: Hx Anticoagulant Therapy, Hx Diabetes - DM II, Hx Thyroid Disease, Hx Anemia Cardiovascular History: Reports: Hx Cardiac Arrest, Hx Congestive Heart Failure , Hx Coronary Artery Disease, Hx Deep Vein Thrombosis, Hx Hypercholesterolemia, Hx Hypotension, Hx Hypertension, Hx Peripheral Vascular Disease, Hx Valvular Heart Disease, Other Cardiovascular Problems/Disorders - CAD, DVT, valve replacement, CABG Denies: Hx Pacemaker/ICD Respiratory History: Reports: Hx Asthma, Hx Chronic Obstructive Pulmonary Disease (COPD), Hx Pneumonia, Hx Pulmonary Embolism, Hx Sleep Apnea, Other Respiratory Problems/Disorders - home o2, 2.5L GI History: Reports: Hx Diverticulosis, Hx Gall Bladder Disease, Hx Gastroesophageal Reflux Disease, Hx Gastrointestinal Bleed - 08/22/16 admission, Hx Hiatal Hernia, Other GI Disorders - DIVERTICULITIS, SBO with colostomy History: Reports: Hx Kidney Stones, Hx Renal Disease - KIDNEY STONES Denies: Hx Dialysis, Other Problems/Disorders Musculoskeletal History: Reports: Hx Arthritis - legs and shoulders, Hx Back Problems, Hx Bursitis, Hx Scoliosis, Other Musculoskeletal History - Left hip replacement Denies: Hx Osteoporosis Sensory History: Reports: Hx Contacts or Glasses Denies: Hx Deafness, Hx Hearing Aid Opthamlomology History: Reports: Hx Contacts or Glasses Neurological History: Denies: Hx Dementia, Hx Developmental Delay, Hx Headaches, Hx Migraine, Hx Nerve Disease, Hx Seizures, Hx Spinal Cord Injury, Hx Transient Ischemic Attacks (TIA), Other Neuro Impairments/Disorders Psychiatric History: Reports: Hx Anxiety, Hx Depression Denies: Hx Substance Abuse - Surgical History Surgery Procedure, Year, and Place[place] [facility] [place] [facility] [place] ST[place]ES [place] [facility] [place], HEART VALVE REPLACEMENT 2010, [facility], LEFT HIP REPLACED, 2009, [facility]. TONSILECTOMY A CHILD. COLOSTOMY 2015 Hx Anesthesia Reactions: No - Immunization History Date of Tetanus Vaccine: Up to date Date of Influenza Vaccine: Fall 2011 Infectious Disease History: Reports: Hx of Known/Suspected MRSA - 08/22/16 [facility] + MRSA nares, Hx Shingles Denies: Hx Hepatitis, Hx Human Immunodeficiency Virus (HIV) - Family History Known Family History: Positive: Cardiac Disease, Other - neg: anesthesia reaction - Social History Alcohol Use: Rare Hx Substance Use: No Substance Use Type: Reports: None Hx Tobacco Use: Yes Smoking Status (MU): Former Smoker Type: Cigarettes Have You Smoked in the Last Year: No Review of Systems Negative: Fever Negative: Chest Pain Positive: Vomiting, Nausea, Other - decreased appetite. Negative: Abdominal Pain Positive: Other - difficulty ambulating due to swelling with pain of her L leg; generalized weakness All Other Systems Reviewed And Are Negative: Yes Physical Exam - Summary Physical Exam Summary: Appearance: Well-appearing, Well-nourished, lying in bed comfortably Skin: Warm, dry, no obvious rash Eyes: sclera anicteric, no conjunctival pallor ENT: mucous membranes moist, pharynx appears normal Neck: Supple, nontender Respiratory: Clear to auscultation, no signs of respiratory distress Cardiovascular: Pulses are irregularly irregular with regular rates. S1, S2. No murmurs. Distal pulses in tibial and radial bilaterally. Abdomen: Soft, nontender, normal active bowel sounds present Musculoskeletal: Normal, Strength/ROM Intact, Swelling of L leg and foot with erythema and swelling extending the medial thigh, extending up to the groin. Neurological: A&Ox3, awake and alert, mentation is normal, speech is fluent and appropriate Psychiatric: affect is normal, does not appear anxious or depressed Triage Information Reviewed: Yes Vital Signs On Initial Exam: Initial Vitals Temp Pulse Resp BP Pulse Ox 98.0 F 108 18 115/94 98 11/29/17 10:20 11/29/17 10:20 11/29/17 10:20 11/29/17 10:20 11/29/17 10:20 Vital Signs Reviewed: Yes Diagnostics - Laboratory Result Diagrams: 11/29/17 11:22 11/29/17 11:22 Lab Statement: Any lab studies that have been ordered have been reviewed, and results considered in the medical decision making process. - Ultrasound No standard instances Ultrasound Interpretation Completed By: Radiologist - US LLE reveals LEFT LOWER EXTREMITY OCCLUSIVE THROMBUS NOTED FROM THE LEVEL OF THE COMMON FEMORAL VEIN INFERIORLY THROUGH TO THE CALF. ED physician has reviewed this radiology report. - EKG 1035 Cardiac Rate: NL - 82 BPM EKG Rhythm: Atrial Fibrillation EKG Interpretation: nonspecific changes ST segments, similar to 10/19/17 Re-Evaluation - Re-Evaluation First Eval Re-Evaluation Time: 11:22 Comment: Discussed US results and plans for admission with the patient. Lower Extremity Course/Dx - Diagnoses Provider Diagnoses: DVT (deep venous thrombosis) - Physician Notifications Discussed Care Of Patient With: Rojelio Cuevas Time Discussed With Above Provider: 11:26 Instructed by Provider To: Other - Consulted Dr. Cuevas at 1126 who will see her to evaluate for admission. Discharge - Sign-Out/Discharge Documenting (check all that apply): Patient Departure - Discharge Plan Disposition: ADMITTED TO [facility]
[2017-11-29] MEDS ORDERED: Morphine VIAL* 4 MG/ML VIAL (1 ml vial) IV ONE (10:26)
--- NOTE | 2017-11-29 11:16 | RAD ---
HISTORY: swelling,pain,suspect dvt COMPARISONS: None relevant TECHNIQUE: Multiple transverse and longitudinal ultrasound images were obtained of the left lower extremity from the level of the common femoral vein inferiorly through to the infrapopliteal veins using grayscale, color Doppler, and spectral Doppler imaging with and without compression and with augmentation. Comparison images were obtained of the contralateral common femoral vein. FINDINGS: VEINS: There is occlusive thrombus noted from the level of the common femoral vein inferiorly into the calf veins.. SOFT TISSUES: There is subcutaneous edema. OTHER FINDINGS: None. IMPRESSION: LEFT LOWER EXTREMITY OCCLUSIVE THROMBUS NOTED FROM THE LEVEL OF THE COMMON FEMORAL VEIN INFERIORLY THROUGH TO THE CALF
[2017-11-29] MEDS ORDERED: Rivaroxaban TAB(*) 15 MG PO ONE (11:27)
[2017-11-29 11:32] LABS: ABS Basophils 0.1 10^3/ul (0-0.2); ABS Eosinophils 0.1 10^3/ul (0-0.6); ABS Lymphocytes 1.3 10^3/ul (1.0-4.8); ABS Monocytes 1.2 10^3/ul (0-0.8); ABS Neutrophils 10.9 10^3/ul (1.5-7.7); ABS Nucleated RBC 0 10^3/ul; Hematocrit 38 % (35-47); Hemoglobin 11.7 g/dl (12.0-16.0); Lymphocyte % 9.7 % (25-47); Mean Corpuscular HGB Conc 31 g/dl (31-36); Mean Corpuscular Hemoglobin 24 pg (27-31); Mean Corpuscular Volume 80 fL (80-97); Mean Platelet Volume 8.9 um3 (7.4-10.4); Nucleated Red Blood Cells % 0; Platelet Count 177 10^3/ul (150-450); Red Blood Count 4.78 10^6/ul (4.00-5.40); Red Cell Distribution Width 19 % (10.5-15); White Blood Count 13.7 10^3/ul (3.5-10.8)
[2017-11-29 11:43] LABS: EGFR Non-African American 72.6 (>60)
[2017-11-29] MEDS ORDERED: Albuterol HFA INHALER* 8 gm MDI INH PRN (11:56)
[2017-11-29] MEDS ORDERED: ALPRAZolam TAB* 0.25 MG PO PRN (11:56)
[2017-11-29] MEDS ORDERED: Enoxaparin(*) 40 MG/0.4 ML SYR SUBCUT SCH (12:00)
[2017-11-29] MEDS ORDERED: Dextrose 50% Syringe 50 ML* 25 GM/50 ML SYRINGE IV PUSH PRN (12:01)
--- NOTE | 2017-11-29 12:14 | ADMNOTE ---
Subjective Date of Service: 11/29/17 Interval History: ADMISSION HISTORY AND PHYSICAL EXAM: Allergies Allergy/AdvReac Type Severity Reaction Status Date / Time bee venom protein (honey bee) Allergy Severe Rash Verified 08/03/17 13:55 shellfish derived Allergy Severe Hives Verified 08/03/17 13:55 Iodinated Contrast- Oral and Allergy Intermediate Hives Verified 08/03/17 13:55 IV Dye celecoxib Allergy Hives Verified 08/03/17 13:55 Home Medications Medication Instructions Recorded Confirmed Type Atorvastatin* [Lipitor 80 MG*] 80 mg PO DAILY 10/25/12 11/29/17 History Sertraline* [Zoloft*] 200 mg PO DAILY 10/25/12 11/29/17 History Aspirin EC TAB* [Ecotrin EC Low 81 mg PO DAILY 04/16/15 11/29/17 History Dose 81 MG*] Tiotropium CAP.INH* [Spiriva 1 cap.inh INH DAILY 05/12/15 11/29/17 History CAP.INH*] ALPRAZolam TAB* [Xanax TAB*] 0.25 mg PO TID PRN 06/25/15 11/29/17 History HYDROcodone/ACETAMIN 5-325 MG* 1 tab PO Q4H PRN 06/25/15 11/29/17 History [[place] 5-325 TAB*] EPINEPHrine [Epipen 2-[place]] 0.3 mg IM ONCE PRN 06/21/16 11/29/17 History traZODone TAB* [Desyrel TAB*] 100 mg PO BEDTIME 06/21/16 11/29/17 History Ezetimibe TAB* [Zetia TAB*] 10 mg PO DAILY 08/22/16 11/29/17 History Albuterol HFA INHALER* [Ventolin 2 puff INH Q4H PRN 08/03/17 11/29/17 History HFA Inhaler*] Spironolactone TAB* [Aldactone TAB 25 mg PO DAILY 08/03/17 11/29/17 History 25 MG*] metFORMIN* [Glucophage 500 MG TAB 500 mg PO 0800,1700 #60 tab 08/10/17 11/29/17 Rx *] Digoxin TAB* [Lanoxin TAB*] 0.25 mg PO DAILY #30 tab 09/21/17 11/29/17 Rx Diltiazem CD CAP* [Cardizem CD 240 mg PO DAILY 10/19/17 11/29/17 History CAP*] Metoprolol Succinate XL TAB* 75 mg PO DAILY 10/19/17 11/29/17 History [Toprol XL TAB*] Pregabalin CAP(*) [Lyrica CAP(*)] 50 mg PO BEDTIME #30 cap MDD 50mg 10/22/1703/09 Rx Torsemide TAB* [Demadex 20 MG*] 40 mg PO DAILY #60 tab 10/23/17 11/29/17 Rx glipiZIDE [Glipizide] 2.5 mg PO DAILY #10 tablet 10/23/17 11/29/17 Rx Fluticasone HFA 110 mcg(NF) 2 puff INH BID 11/29/17 11/29/17 History [Flovent HFA 110 mcg(NF)] Levothyroxine Sodium 175 mcg PO DAILY 11/29/17 11/29/17 History Omeprazole CAP* [Prilosec CAP* 20 40 mg PO DAILY 11/29/17 11/29/17 History MG] HPI: The patient was discharged 10/23/17 after COPD exacerbation. She was well until 6 days ago when her daughter fell on her L groin and hurt her. The next day her L leg was swollen and painful. It steadily got worse. She was waiting until her appt with Dr. Simons later today but could not wait. No chest pain , SOB, chills, or sweats. Family History: Findings - Both mother and brother had heart disease. Social History: Findings - Lives with her son Nehemiah who is her SDM. Quit smoking many yrs ago. No alcohol abuse. Past Medical History: Findings - Colostomy for obstruction many yrs ago. AVR bioprosthetic. 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 CABG 2010, DM, hypothyroid, cholecystectomy, atrial fib on warfarin until her GI bleed Review of Systems - Measurements Intake and Output: Intake and Output Last 24 Hours 11/27/17 11/28/17 11/29/17 11/30/17 06:59 06:59 06:59 06:59 Weight 231 lb - Review of Systems Constitutional Symptoms: Negative: Weight Gain, Weight Loss, Weakness, Fatigue, Fever, Night Sweats, Unexplained Falls, Other Dermatology: Positive: Normal HEENT: Positive: Normal Eyes: Positive: Normal Thyroid: Positive: Primary Hypothyroidism Pulmonary: Positive: COPD Cardiology: Positive: Normal Gastroenterology: Positive: Normal Genital - Urinary: Positive: Normal Musculoskeletal: Negative: Joint Pain, Joint Stiffness, Arthritis, Osteoporosis, Low Back Pain , Sciatica, Joint Deformities, Kyphoscoliosis, Other Endocrinology: Positive: Thyroid Problems, Obesity, Diabetes Mellitus Hematologic/Lymphatic: Negative: Anemia, Easy Brusing, Hx Leukemia, Hx Lymphoma, Use of Anticoagulant, Use of Antiplatelet Drugs, Other Neurology: Positive: Normal Allergic/Immunologic: Negative: Hx Anaphylaxis, Hx Angioedema, Hx Environmental, Hx Seasonal, Athsma, Hx HIV, Immunocompromise, Swollen Glands LymphNodes, Other Objective Active Medications: Albuterol (Ventolin Hfa Inhaler*) 2 puff INH Q4H PRN PRN Reason: SOB/WHEEZING Alprazolam (Xanax Tab*) 0.25 mg PO TID PRN PRN Reason: ANXIETY Aspirin (Aspirin Ec Tab*) 81 mg PO DAILY J[facility] Atorvastatin Calcium (Lipitor*) 80 mg PO DAILY [facility] Dextrose (D50w Syringe 50 Ml*) 12.5 gm IV PUSH .FOR FS < 60 - SS PRN PRN Reason: FS < 60 Digoxin (Lanoxin Tab*) 0.25 mg PO DAILY [facility] Diltiazem HCl (Cardizem Cd Cap*) 240 mg PO DAILY JL Ezetimibe (Zetia Tab*) 10 mg PO DAILY JL Enoxaparin Sodium (Lovenox(*)) 100 mg SUBCUT Q12H JL Fluticasone Propionate (Flovent Hfa 110 Mcg(Nf)) 2 puff INH BID JL Glipizide (Glucotrol Tab*) 2.5 mg PO DAILY [facility] Insulin Human Lispro (Humalog*) 0 units SUBCUT ACHS JL; Protocol Levothyroxine Sodium (Synthroid Tab*) 175 mcg PO DAILY JL Metoprolol Succinate (Toprol Xl Tab*) 75 mg PO DAILY JL Omeprazole (Prilosec Cap*) 40 mg PO DAILY JL Pregabalin (Lyrica Cap(*)) 50 mg PO BEDTIME JL Sertraline HCl (Zoloft*) 200 mg PO DAILY JL Spironolactone (Aldactone Tab*) 25 mg PO DAILY JL Tiotropium [place] (Spiriva Cap.Inh*) cap INH DAILY JL Torsemide (Demadex*) 40 mg PO DAILY JL Trazodone HCl (Desyrel Tab*) 100 mg PO BEDTIME JL Vital Signs - 8 hr 11/29/17 11/29/17 11/29/17 10:20 10:23 11:00 Temperature 98.0 F Pulse Rate 108 103 100 Respiratory 18 Rate Blood Pressure 115/94 (mmHg) O2 Sat by Pulse 98 100 99 Oximetry 11/29/17 11/29/17 11:21 11:27 Temperature Pulse Rate Respiratory 18 Rate Blood Pressure 103/70 (mmHg) O2 Sat by Pulse Oximetry Oxygen Devices in Use Now: None Appearance: Alert, supine on ED stretcher. In good spirits. Looks comfortable. Eyes: No Scleral Icterus Ears/Nose/Mouth/Throat: Clear Oropharnyx, Mucous Membranes Moist Neck: NL Appearance and Movements; NL JVP, No Thyroid Enlargement, Masses Respiratory: Symmetrical Chest Expansion and Respiratory Effort, Clear to Auscultation, Clear to Percussion Cardiovascular: No Edema, - - irreg. 1-2/6 systolic murmur RSB Abdominal: NL Sounds; No Tenderness; No Distention, No Hepatosplenomegaly, - Extremities: No Clubbing, Cyanosis, - - L leg very swollen and very tender, somewhat warm. Skin: No Nodules or Sclerosis, - - Red upper medial L thigh, also band of erythema across anterior upper thigh Neurological: Alert and Oriented x 3, NL Sensation Result Diagrams: 11/29/17 11:22 11/29/17 11:22 Assess/Plan/Problems-Billing Assessment: - Patient Problems (1) Left leg DVT Current Visit: Yes Status: Acute Code(s): I82.402 - ACUTE EMBOLISM AND THOMBOS UNSP DEEP VEINS OF L LOW EXTREM SNOMED Code(s): 819988499 Comment: Unusual erythema upper thigh, clot extends up to groin ? pelvic mass compressing vein. MRI w/wo ordered as per radiologist suggestion. Add on CRP. Start enoxaparin. (2) COPD (chronic obstructive pulmonary disease) Current Visit: No Status: Chronic Priority: Medium Code(s): J44.9 - CHRONIC OBSTRUCTIVE PULMONARY DISEASE, UNSPECIFIED SNOMED Code(s): 49431022 Comment: stable. Continue mometasone, albuterol, tiotropium. (3) Atrial fibrillation Current Visit: No Status: Acute Code(s): I48.91 - UNSPECIFIED ATRIAL FIBRILLATION SNOMED Code(s): 63475519 Comment: no AC due to recent GI bleed rate controlled on metoprolol XR, diltiazem. (4) Diabetes Current Visit: No Status: Acute Code(s): E11.9 - TYPE 2 DIABETES MELLITUS WITHOUT COMPLICATIONS SNOMED Code(s): 33057063 Comment: Hold metformin. Lantus and Lispro SS. (5) HTN (hypertension) Current Visit: No Status: Chronic Priority: Medium Code(s): I10 - ESSENTIAL (PRIMARY) HYPERTENSION SNOMED Code(s): 89742791 Comment: Controlled, continue diltiazem CD and metoprolol XR 75.
[2017-11-29] MEDS: oxyCODONE TAB* 5 MG TAB PO PRN ×2 (14:03→17:53)
[2017-11-29] MEDS: Enoxaparin(*) 100 MG/ML SYR SUBCUT SCH (14:04)
[2017-11-29] MEDS: Insulin LISPRO* 1 UNITS UNIT SUBCUT SCH ×2 (17:53→20:19)
[2017-11-29] MEDS ORDERED: Gadoteridol* (CONTRAST) 279.3 MG/ML 10 ML IV ONE (18:39)
--- NOTE | 2017-11-29 19:10 | RAD ---
Indication: Abscess versus neoplasm. Axial T1, STIR, coronal T1, STIR, precontrast axial T1-weighted fat-suppressed images were obtained precontrast. 20 mL of ProHance was injected and postcontrast axial and coronal T1-weighted fat sat images were obtained. Correlation is made with the previous exam dated October 19, 2017. The previously described structure above the left adnexa is again identified and is triangular shaped and does not represent fluid. This is nonspecific. This may represent an ovary. No follicles are noted. This is unchanged from October 19, 2017. This may be residual scar as patient had prior fluid collection in this area of September 19, 2017. There is some enhancement in this lesion. There is a large anterior abdominal wall hernia noted containing small bowel. No abnormal dilatation is noted. Metallic artifact limits evaluation due to left hip prosthesis. IMPRESSION: Triangular shaped abnormality which is soft tissue and enhances superior to the left adnexa likely represents some scar tissue and remains unchanged from prior exam. This is in the region of prior fluid collection and inflammatory change. Further follow-up is suggested. This has improved since September 12, 2017. Large anterior abdominal wall hernia containing small bowel. No incarceration is noted.
[2017-11-29] MEDS: Mometasone 220 MCG MDI INH SCH (20:40)
[2017-11-29] MEDS: traZODone TAB* 50 MG TAB PO SCH (21:04)
[2017-11-29] MEDS: Pregabalin CAP(*) 50 MG PO SCH (21:05)
[2017-11-30] MEDS: Enoxaparin(*) 100 MG/ML SYR SUBCUT SCH (00:39)
[2017-11-30] MEDS: Levothyroxine TAB* 175 MCG TAB PO SCH (05:48)
[2017-11-30 06:42] LABS: Urine Appearance Cloudy; Urine Blood 1+ (Negative); Urine Color Amber; Urine Ketones Negative (Negative); Urine Protein 1+(30 mg/dL) (Negative); Urine Red Blood Cell 2+(6-10/hpf) (Absent); Urine Urobilinogen Negative (Negative); Urine White Blood Cell 2+(11-20/hpf) (Absent)
[2017-11-30] MEDS: Tiotropium CAP.INH* CAP.INH/18 MCG (USE ORDER SET !) INH SCH (07:51)
[2017-11-30] MEDS ORDERED: Digoxin TAB* 0.25 MG PO SCH (09:00)
[2017-11-30] MEDS ORDERED: Spiriva Inhaler DEVICE* 1 EACH DEVICE INH ONE (09:00)
[2017-11-30] MEDS: Atorvastatin* 80 MG TAB PO SCH (09:02)
[2017-11-30] MEDS: Torsemide TAB* 20 MG PO SCH (09:02)
[2017-11-30] MEDS: Aspirin EC TAB* 81 MG TAB.EC PO SCH (09:03)
[2017-11-30] MEDS: Spironolactone TAB* 25 MG PO SCH (09:03)
[2017-11-30] MEDS: Sertraline* 100 MG TAB PO SCH (09:03)
[2017-11-30] MEDS: Metoprolol Succinate XL TAB* 25 MG PO SCH (09:04)
[2017-11-30] MEDS: Ezetimibe TAB* 10 MG PO SCH (09:05)
[2017-11-30] MEDS: Omeprazole CAP* 20 MG PO SCH (09:05)
[2017-11-30] MEDS: Insulin LISPRO* 1 UNITS UNIT SUBCUT SCH ×4 (09:06→20:54)
[2017-11-30] MEDS: Diltiazem CD CAP* 240 MG PO SCH (09:06)
[2017-11-30] MEDS: glipiZIDE TAB* 5 MG PO SCH (09:17)
[2017-11-30] MEDS: oxyCODONE TAB* 5 MG TAB PO PRN ×4 (09:17→20:54)
--- NOTE | 2017-11-30 09:51 | PN ---
Subjective Date of Service: 11/30/17 Interval History: Pain somewhat better, adequate control with po analgesics. No bowel c/o. Walks to with a walker. Family History: Findings - Both mother and brother had heart disease. Social History: Findings - Lives with her son Nehemiah who is her SDM. Quit smoking many yrs ago. No alcohol abuse. Past Medical History: Findings - Colostomy for obstruction many yrs ago. AVR bioprosthetic. 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 CABG 2010, DM, hypothyroid, cholecystectomy, atrial fib on warfarin until her GI bleed Objective Active Medications: Albuterol (Ventolin Hfa Inhaler*) 2 puff INH Q4H PRN PRN Reason: SOB/WHEEZING Alprazolam (Xanax Tab*) 0.25 mg PO TID PRN PRN Reason: ANXIETY Aspirin (Aspirin Ec Tab*) 81 mg PO DAILY [facility] Last Admin: 11/30/17 09:03 Dose: 81 mg Atorvastatin Calcium (Lipitor*) 80 mg PO DAILY [facility] Last Admin: 11/30/17 09:02 Dose: 80 mg Cephalexin HCl (Keflex Cap*) 500 mg PO QID [facility] Dextrose (D50w Syringe 50 Ml*) 12.5 gm IV PUSH .FOR FS < 60 - SS PRN PRN Reason: FS < 60 Diltiazem HCl (Cardizem Cd Cap*) 240 mg PO DAILY [facility] Last Admin: 11/30/17 09:06 Dose: 240 mg Ezetimibe (Zetia Tab*) 10 mg PO DAILY [facility] Last Admin: 11/30/17 09:05 Dose: 10 mg Glipizide (Glucotrol Tab*) 2.5 mg PO DAILY [facility] Last Admin: 11/30/17 09:17 Dose: 2.5 mg Insulin Human Lispro (Humalog*) 0 units SUBCUT ACHS [facility]; Protocol Last Admin: 11/30/17 09:06 Dose: 2 unit Levothyroxine Sodium (Synthroid Tab*) 175 mcg PO DAILY@0600 [facility] Last Admin: 11/30/17 05:48 Dose: 175 mcg Metoprolol Succinate (Toprol Xl Tab*) 75 mg PO DAILY [facility] Last Admin: 11/30/17 09:04 Dose: 75 mg Mometasone Furoate (Asmanex 220 Mcg Mdi *) 2 puff INH BEDTIME [facility] Last Admin: 11/29/17 20:40 Dose: 2 puff Omeprazole (Prilosec Cap*) 40 mg PO DAILY [facility] Last Admin: 11/30/17 09:05 Dose: 40 mg Oxycodone HCl (Roxycodone Tab*) 5 mg PO Q4H PRN PRN Reason: PAIN Last Admin: 11/30/17 09:17 Dose: 5 mg Oxycodone HCl (Roxycodone Tab*) 10 mg PO Q4H PRN PRN Reason: SEVERE PAIN Last Admin: 11/29/17 17:53 Dose: 10 mg Pregabalin (Lyrica Cap(*)) 50 mg PO BEDTIME [facility] Last Admin: 11/29/17 21:05 Dose: 50 mg Rivaroxaban (Xarelto(*)) 15 mg PO BID [facility] Sertraline HCl (Zoloft*) 200 mg PO DAILY [facility] Last Admin: 11/30/17 09:03 Dose: 200 mg Spironolactone (Aldactone Tab*) 25 mg PO DAILY [facility] Last Admin: 11/30/17 09:03 Dose: 25 mg Tiotropium [place] (Spiriva Cap.Inh*) 1 cap INH DAILY [facility] Last Admin: 11/30/17 07:51 Dose: 1 cap Torsemide (Demadex*) 40 mg PO DAILY [facility] Last Admin: 11/30/17 09:02 Dose: 40 mg Trazodone HCl (Desyrel Tab*) 100 mg PO BEDTIME [facility] Last Admin: 11/29/17 21:04 Dose: 100 mg Vital Signs - 8 hr 11/30/17 11/30/17 11/30/17 03:04 07:21 09:17 Temperature 97.6 F 97.6 F Pulse Rate 88 78 Respiratory 16 14 16 Rate Blood Pressure 102/34 111/54 (mmHg) O2 Sat by Pulse 100 100 Oximetry Oxygen Devices in Use Now: Nasal Cannula Appearance: Alert, supine in bed. In fair spirits. Looks comfortable. Extremities: No Clubbing, Cyanosis, - - Edema improved since yesterday. Leg muffler tender. Skin: No Nodules or Sclerosis, - - Erythema medial upper thigh and band area anterior upper thigh sl improved. Neurological: Alert and Oriented x 3, NL Sensation Result Diagrams: 11/29/17 11:22 11/29/17 11:22 Assess/Plan/Problems-Billing Assessment: - Patient Problems (1) Left leg DVT Current Visit: Yes Status: Acute Code(s): I82.402 - ACUTE EMBOLISM AND THOMBOS UNSP DEEP VEINS OF L LOW EXTREM SNOMED Code(s): 783439688 Comment: Discussed with Dr. Brody. Scar tissue, improved, not impinging on iliac vein. Stop enoxaparin, start rivaroxaban 15 mg bid 10 AM 11/30. (2) COPD (chronic obstructive pulmonary disease) Current Visit: No Status: Chronic Priority: Medium Code(s): J44.9 - CHRONIC OBSTRUCTIVE PULMONARY DISEASE, UNSPECIFIED SNOMED Code(s): 53211999 Comment: stable. Continue mometasone, albuterol, tiotropium. (3) Atrial fibrillation Current Visit: No Status: Acute Code(s): I48.91 - UNSPECIFIED ATRIAL FIBRILLATION SNOMED Code(s): 01822756 Comment: No bleeding yet on enoxaparin. Rivaroxaban starting 11/30 10 AM. rate controlled on metoprolol XR, diltiazem. (4) Diabetes Current Visit: No Status: Acute Code(s): E11.9 - TYPE 2 DIABETES MELLITUS WITHOUT COMPLICATIONS SNOMED Code(s): 41184023 Comment: Hold metformin. Lantus and Lispro SS. (5) HTN (hypertension) Current Visit: No Status: Chronic Priority: Medium Code(s): I10 - ESSENTIAL (PRIMARY) HYPERTENSION SNOMED Code(s): 26576278 Comment: Controlled, continue diltiazem CD and metoprolol XR 75. (6) Cellulitis Current Visit: Yes Status: Acute Code(s): L03.90 - CELLULITIS, UNSPECIFIED SNOMED Code(s): 090645679 Comment: L thigh. Seems to be 2 unrelated acute dx's. Start cephalexin 10 AM 11/30. CBC, CRP 12/01.
[2017-11-30] MEDS: Rivaroxaban TAB(*) 15 MG PO SCH ×2 (10:15→20:53)
[2017-11-30] MEDS: Cephalexin CAP* 500 MG PO SCH ×4 (10:16→20:54)
[2017-11-30] MEDS ORDERED: Ondansetron INJ* 2 MG/ML VIAL IV PRN (20:00)
[2017-11-30] MEDS ORDERED: Ondansetron INJ* 2 MG/ML VIAL ONE (20:10)
[2017-11-30] MEDS: Mometasone 220 MCG MDI INH SCH (20:20)
[2017-11-30] MEDS: traZODone TAB* 50 MG TAB PO SCH (20:54)
[2017-11-30] MEDS: Pregabalin CAP(*) 50 MG PO SCH (20:54)
[2017-12-01] MEDS: Levothyroxine TAB* 175 MCG TAB PO SCH (05:38)
[2017-12-01] MEDS: oxyCODONE TAB* 5 MG TAB PO PRN ×3 (05:38→20:19)
[2017-12-01 06:25] LABS: ABS Basophils 0.1 10^3/ul (0-0.2); ABS Eosinophils 0.2 10^3/ul (0-0.6); ABS Lymphocytes 2.9 10^3/ul (1.0-4.8); ABS Monocytes 1.2 10^3/ul (0-0.8); ABS Neutrophils 7.5 10^3/ul (1.5-7.7); ABS Nucleated RBC 0 10^3/ul; Eosinophil % 1.9 % (0-6); Hematocrit 35 % (35-47); Lymphocyte % 24.6 % (25-47); Mean Corpuscular HGB Conc 31 g/dl (31-36); Mean Corpuscular Hemoglobin 25 pg (27-31); Mean Corpuscular Volume 80 fL (80-97); Nucleated Red Blood Cells % 0; Platelet Count 183 10^3/ul (150-450); Red Blood Count 4.42 10^6/ul (4.00-5.40); Red Cell Distribution Width 18 % (10.5-15)
[2017-12-01] MEDS: Tiotropium CAP.INH* CAP.INH/18 MCG (USE ORDER SET !) INH SCH (08:13)
[2017-12-01] MEDS: Insulin LISPRO* 1 UNITS UNIT SUBCUT SCH ×4 (09:12→21:07)
[2017-12-01] MEDS ORDERED: Ondansetron ODT TAB* 4 MG SL PRN (09:38)
--- NOTE | 2017-12-01 09:45 | PN ---
Subjective Date of Service: 12/01/17 Interval History: C/O N&V, relieved by IV ondansetron. L leg pain about the same, relieved by po oxycodone. Family History: Findings - Both mother and brother had heart disease. Social History: Findings - Lives with her son Nehemiah who is her SDM. Quit smoking many yrs ago. No alcohol abuse. Past Medical History: Findings - Colostomy for obstruction many yrs ago. AVR bioprosthetic. 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 CABG 2009, DM, hypothyroid, cholecystectomy, atrial fib on warfarin until her GI bleed Objective Active Medications: Albuterol (Ventolin Hfa Inhaler*) 2 puff INH Q4H PRN PRN Reason: SOB/WHEEZING Alprazolam (Xanax Tab*) 0.25 mg PO TID PRN PRN Reason: ANXIETY Aspirin (Aspirin Ec Tab*) 81 mg PO DAILY [facility] Last Admin: 11/30/17 09:03 Dose: 81 mg Atorvastatin Calcium (Lipitor*) 80 mg PO DAILY [facility] Last Admin: 11/30/17 09:02 Dose: 80 mg Dextrose (D50w Syringe 50 Ml*) 12.5 gm IV PUSH .FOR FS < 60 - SS PRN PRN Reason: FS < 60 Diltiazem HCl (Cardizem Cd Cap*) 240 mg PO DAILY [facility] Last Admin: 11/30/17 09:06 Dose: 240 mg Ezetimibe (Zetia Tab*) 10 mg PO DAILY [facility] Last Admin: 11/30/17 09:05 Dose: 10 mg Glipizide (Glucotrol Tab*) 2.5 mg PO DAILY [facility] Last Admin: 11/30/17 09:17 Dose: 2.5 mg Ceftriaxone Sodium 1 gm/ (Sodium Chloride) 50 mls @ 200 mls/hr IVPB Q24H [facility] Insulin Human Lispro (Humalog*) 0 units SUBCUT ACHS [facility]; Protocol Last Admin: 12/01/17 09:12 Dose: 3 unit Levothyroxine Sodium (Synthroid Tab*) 175 mcg PO DAILY@0600 [facility] Last Admin: 12/01/17 05:38 Dose: 175 mcg Metoprolol Succinate (Toprol Xl Tab*) 75 mg PO DAILY [facility] Last Admin: 11/30/17 09:04 Dose: 75 mg Mometasone Furoate (Asmanex 220 Mcg Mdi *) 2 puff INH BEDTIME [facility] Last Admin: 11/30/17 20:20 Dose: 2 puff Omeprazole (Prilosec Cap*) 40 mg PO DAILY [facility] Last Admin: 11/30/17 09:05 Dose: 40 mg Ondansetron HCl (Zofran Inj*) 4 mg IV Q6H PRN PRN Reason: NAUSEA/VOMITING Last Admin: 11/30/17 20:15 Dose: 4 mg Ondansetron HCl (Zofran Odt Tab*) 4 mg SL Q6H PRN PRN Reason: NAUSEA/VOMITING Oxycodone HCl (Roxycodone Tab*) 5 mg PO Q4H PRN PRN Reason: PAIN Last Admin: 11/30/17 09:17 Dose: 5 mg Oxycodone HCl (Roxycodone Tab*) 10 mg PO Q4H PRN PRN Reason: SEVERE PAIN Last Admin: 12/01/17 05:38 Dose: 10 mg Pregabalin (Lyrica Cap(*)) 50 mg PO BEDTIME [facility] Last Admin: 11/30/17 20:54 Dose: 50 mg Rivaroxaban (Xarelto(*)) 15 mg PO BID [facility] Last Admin: 11/30/17 20:53 Dose: 15 mg Sertraline HCl (Zoloft*) 200 mg PO DAILY [facility] Last Admin: 11/30/17 09:03 Dose: 200 mg Spironolactone (Aldactone Tab*) 25 mg PO DAILY [facility] Last Admin: 11/30/17 09:03 Dose: 25 mg Tiotropium [place] (Spiriva Cap.Inh*) 1 cap INH DAILY [facility] Last Admin: 12/01/17 08:13 Dose: 1 cap Torsemide (Demadex*) 40 mg PO DAILY [facility] Last Admin: 11/30/17 09:02 Dose: 40 mg Trazodone HCl (Desyrel Tab*) 100 mg PO BEDTIME [facility] Last Admin: 11/30/17 20:54 Dose: 100 mg Vital Signs - 8 hr 12/01/1718 12/01/17 02:18 05:38 07:31 Temperature 97.9 F Pulse Rate 71 Respiratory 16 18 18 Rate Blood Pressure 107/60 (mmHg) O2 Sat by Pulse 93 Oximetry 12/01/17 08:15 Temperature Pulse Rate Respiratory 14 Rate Blood Pressure (mmHg) O2 Sat by Pulse Oximetry Oxygen Devices in Use Now: Nasal Cannula Appearance: Alert, partly up in bed. Seems discouraged. Eyes: No Scleral Icterus Extremities: No Clubbing, Cyanosis, - - L calf still swollen, tender, sl warm Skin: No Nodules or Sclerosis, - - L thigh rashes slowly improving Neurological: Alert and Oriented x 3, NL Sensation Result Diagrams: 12/01/17 05:57 12/01/17 05:57 Microbiology and Other Data: Microbiology 11/30/17 06:32 Urine Culture - Final Urine No Growth (<1,000 CFU/mL) Assess/Plan/Problems-Billing Assessment: - Patient Problems (1) Left leg DVT Current Visit: Yes Status: Acute Code(s): I82.402 - ACUTE EMBOLISM AND THOMBOS UNSP DEEP VEINS OF L LOW EXTREM SNOMED Code(s): 110385395 Comment: Discussed with Dr. Brody. Scar tissue, improved, not impinging on iliac vein. Stop Start Started rivaroxaban 15 mg bid 10 AM 11/30. Oxycodone may be causing N&V. (2) COPD (chronic obstructive pulmonary disease) Current Visit: No Status: Chronic Priority: Medium Code(s): J44.9 - CHRONIC OBSTRUCTIVE PULMONARY DISEASE, UNSPECIFIED SNOMED Code(s): 79140967 Comment: stable. Continue mometasone, albuterol, tiotropium. (3) Atrial fibrillation Current Visit: No Status: Acute Code(s): I48.91 - UNSPECIFIED ATRIAL FIBRILLATION SNOMED Code(s): 49627955 Comment: No bleeding yet on enoxaparin. Rivaroxaban starting 11/30 10 AM. rate controlled on metoprolol XR, diltiazem. (4) Diabetes Current Visit: No Status: Acute Code(s): E11.9 - TYPE 2 DIABETES MELLITUS WITHOUT COMPLICATIONS SNOMED Code(s): 63960494 Comment: Hold metformin. Lantus and Lispro SS. (5) HTN (hypertension) Current Visit: No Status: Chronic Priority: Medium Code(s): I10 - ESSENTIAL (PRIMARY) HYPERTENSION SNOMED Code(s): 41442335 Comment: Controlled, continue diltiazem CD and metoprolol XR 75. (6) Cellulitis Current Visit: Yes Status: Acute Code(s): L03.90 - CELLULITIS, UNSPECIFIED SNOMED Code(s): 798781885 Comment: L thigh. Seems to be 2 unrelated acute dx's. Started cephalexin 10 AM 11/30. WBC and CRP both somewhat lower on 12/01. Change to IV ceftriaxone 12/01.
[2017-12-01] MEDS: Rivaroxaban TAB(*) 15 MG PO SCH ×2 (10:58→21:06)
[2017-12-01] MEDS: Torsemide TAB* 20 MG PO SCH (10:58)
[2017-12-01] MEDS: Atorvastatin* 80 MG TAB PO SCH (10:58)
[2017-12-01] MEDS: Aspirin EC TAB* 81 MG TAB.EC PO SCH (10:58)
[2017-12-01] MEDS: Spironolactone TAB* 25 MG PO SCH (10:59)
[2017-12-01] MEDS: Omeprazole CAP* 20 MG PO SCH (10:59)
[2017-12-01] MEDS: Sertraline* 100 MG TAB PO SCH (11:00)
[2017-12-01] MEDS: glipiZIDE TAB* 5 MG PO SCH (11:00)
[2017-12-01] MEDS: Diltiazem CD CAP* 240 MG PO SCH (11:01)
[2017-12-01] MEDS: Metoprolol Succinate XL TAB* 25 MG PO SCH (11:01)
[2017-12-01] MEDS: Ezetimibe TAB* 10 MG PO SCH (11:01)
[2017-12-01] MEDS: Cephalexin CAP* 500 MG PO SCH (11:20)
[2017-12-01] MEDS: cefTRIAXone(*) 1 GM in NS 0.9% 50 ML* 50 ML IVPB SCH (11:54)
[2017-12-01] MEDS: Mometasone 220 MCG MDI INH SCH (20:41)
[2017-12-01] MEDS: traZODone TAB* 50 MG TAB PO SCH (21:06)
[2017-12-01] MEDS: Nystatin TOP POWDER* 15 GM BTL TOPICAL SCH (21:06)
[2017-12-01] MEDS: Pregabalin CAP(*) 50 MG PO SCH (21:06)
[2017-12-02] MEDS: oxyCODONE TAB* 5 MG TAB PO PRN ×3 (03:27→17:43)
[2017-12-02] MEDS: Levothyroxine TAB* 175 MCG TAB PO SCH (05:49)
[2017-12-02] MEDS: Tiotropium CAP.INH* CAP.INH/18 MCG (USE ORDER SET !) INH SCH (07:23)
[2017-12-02] MEDS: Insulin LISPRO* 1 UNITS UNIT SUBCUT SCH ×4 (08:50→22:27)
[2017-12-02] MEDS: Omeprazole CAP* 20 MG PO SCH (08:52)
[2017-12-02] MEDS: Atorvastatin* 80 MG TAB PO SCH (08:53)
[2017-12-02] MEDS: Ezetimibe TAB* 10 MG PO SCH (08:53)
[2017-12-02] MEDS: Aspirin EC TAB* 81 MG TAB.EC PO SCH (08:53)
[2017-12-02] MEDS: Sertraline* 100 MG TAB PO SCH (08:54)
[2017-12-02] MEDS: glipiZIDE TAB* 5 MG PO SCH (09:02)
--- NOTE | 2017-12-02 09:14 | PN ---
Subjective Date of Service: 12/02/17 Interval History: L leg somewhat more sore since she fell off of the toilet last night. No syncope. Family History: Findings - Both mother and brother had heart disease. Social History: Findings - Lives with her son Nehemiah who is her SDM. Quit smoking many yrs ago. No alcohol abuse. Past Medical History: Findings - Colostomy for obstruction many yrs ago. AVR bioprosthetic. 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 CABG 2009, DM, hypothyroid, cholecystectomy, atrial fib on warfarin until her GI bleed Objective Active Medications: Albuterol (Ventolin Hfa Inhaler*) 2 puff INH Q4H PRN PRN Reason: SOB/WHEEZING Alprazolam (Xanax Tab*) 0.25 mg PO TID PRN PRN Reason: ANXIETY Aspirin (Aspirin Ec Tab*) 81 mg PO DAILY COUNTS INCLUDE 234 BEDS AT THE [facility] Last Admin: 12/02/17 08:53 Dose: 81 mg Atorvastatin Calcium (Lipitor*) 80 mg PO DAILY COUNTS INCLUDE 234 BEDS AT THE [facility] Last Admin: 12/02/17 08:53 Dose: 80 mg Dextrose (D50w Syringe 50 Ml*) 12.5 gm IV PUSH .FOR FS < 60 - SS PRN PRN Reason: FS < 60 Diltiazem HCl (Cardizem Cd Cap*) 120 mg PO DAILY COUNTS INCLUDE 234 BEDS AT THE [facility] Ezetimibe (Zetia Tab*) 10 mg PO DAILY COUNTS INCLUDE 234 BEDS AT THE [facility] Last Admin: 12/02/17 08:53 Dose: 10 mg Glipizide (Glucotrol Tab*) 2.5 mg PO DAILY COUNTS INCLUDE 234 BEDS AT THE [facility] Last Admin: 12/02/17 09:02 Dose: 2.5 mg Ceftriaxone Sodium 1 gm/ (Sodium Chloride) 50 mls @ 200 mls/hr IVPB Q24H COUNTS INCLUDE 234 BEDS AT THE [facility] Last Admin: 12/01/17 11:54 Dose: 200 mls/hr Insulin Human Lispro (Humalog*) 0 units SUBCUT ACHS COUNTS INCLUDE 234 BEDS AT THE [facility]; Protocol Last Admin: 12/02/17 08:50 Dose: 2 unit Levothyroxine Sodium (Synthroid Tab*) 175 mcg PO DAILY@0600 COUNTS INCLUDE 234 BEDS AT THE [facility] Last Admin: 12/02/17 05:49 Dose: 175 mcg Metoprolol Succinate (Toprol Xl Tab*) 75 mg PO DAILY COUNTS INCLUDE 234 BEDS AT THE [facility] Last Admin: 12/01/17 11:01 Dose: 75 mg Mometasone Furoate (Asmanex 220 Mcg Mdi *) 2 puff INH BEDTIME COUNTS INCLUDE 234 BEDS AT THE [facility] Last Admin: 12/01/17 20:41 Dose: 2 puff Nystatin (Nystatin Top Powder*) 1 applic TOPICAL TID COUNTS INCLUDE 234 BEDS AT THE [facility] Last Admin: 12/01/17 21:06 Dose: 1 applic Omeprazole (Prilosec Cap*) 40 mg PO DAILY COUNTS INCLUDE 234 BEDS AT THE [facility] Last Admin: 12/02/17 08:52 Dose: 40 mg Ondansetron HCl (Zofran Inj*) 4 mg IV Q6H PRN PRN Reason: NAUSEA/VOMITING Last Admin: 11/30/17 20:15 Dose: 4 mg Ondansetron HCl (Zofran Odt Tab*) 4 mg SL Q6H PRN PRN Reason: NAUSEA/VOMITING Oxycodone HCl (Roxycodone Tab*) 5 mg PO Q4H PRN PRN Reason: PAIN Last Admin: 11/30/17 09:17 Dose: 5 mg Oxycodone HCl (Roxycodone Tab*) 10 mg PO Q4H PRN PRN Reason: SEVERE PAIN Last Admin: 12/02/17 03:27 Dose: 10 mg Pregabalin (Lyrica Cap(*)) 50 mg PO BEDTIME COUNTS INCLUDE 234 BEDS AT THE [facility] Last Admin: 12/01/17 21:06 Dose: 50 mg Rivaroxaban (Xarelto(*)) 15 mg PO BID COUNTS INCLUDE 234 BEDS AT THE [facility] Last Admin: 12/01/17 21:06 Dose: 15 mg Sertraline HCl (Zoloft*) 200 mg PO DAILY COUNTS INCLUDE 234 BEDS AT THE [facility] Last Admin: 12/02/17 08:54 Dose: 200 mg Spironolactone (Aldactone Tab*) 25 mg PO DAILY COUNTS INCLUDE 234 BEDS AT THE [facility] Last Admin: 12/01/17 10:59 Dose: 25 mg Tiotropium [place] (Spiriva Cap.Inh*) 1 cap INH DAILY COUNTS INCLUDE 234 BEDS AT THE [facility] Last Admin: 12/02/17 07:23 Dose: 1 cap Trazodone HCl (Desyrel Tab*) 100 mg PO BEDTIME COUNTS INCLUDE 234 BEDS AT THE [facility] Last Admin: 12/01/17 21:06 Dose: 100 mg Vital Signs - 8 hr 12/02/17 12/02/17 12/02/17 01:43 02:39 03:17 Temperature 98.1 F Pulse Rate 125 75 Respiratory 20 16 Rate Blood Pressure 145/87 107/55 (mmHg) O2 Sat by Pulse 100 85 99 Oximetry 12/02/17 12/02/17 12/02/17 03:27 05:54 06:32 Temperature 97.8 F Pulse Rate 58 Respiratory 18 18 18 Rate Blood Pressure 116/56 (mmHg) O2 Sat by Pulse 99 Oximetry 12/02/17 12/02/17 07:23 08:03 Temperature 98.3 F Pulse Rate 63 74 Respiratory 14 17 Rate Blood Pressure 93/55 (mmHg) O2 Sat by Pulse 93 99 Oximetry Oxygen Devices in Use Now: None Appearance: Alert, partly up in bed. In good spirits. Looks comfortable. Eyes: No Scleral Icterus Extremities: No Clubbing, Cyanosis, - - 2+ edema L leg, somewhat tense, sl tender Skin: No Nodules or Sclerosis, - - Erythema L thigh nearly gone Neurological: Alert and Oriented x 3, NL Sensation Result Diagrams: 12/01/17 05:57 12/01/17 05:57 Microbiology and Other Data: Microbiology 11/30/17 06:32 Urine Culture - Final Urine No Growth (<1,000 CFU/mL) Assess/Plan/Problems-Billing Assessment: - Patient Problems (1) Left leg DVT Current Visit: Yes Status: Acute Code(s): I82.402 - ACUTE EMBOLISM AND THOMBOS UNSP DEEP VEINS OF L LOW EXTREM SNOMED Code(s): 254646170 Comment: Discussed with Dr. Brody. Scar tissue, improved, not impinging on iliac vein. Started rivaroxaban 15 mg bid 10 AM 11/30. Oxycodone may be causing N&V. (2) COPD (chronic obstructive pulmonary disease) Current Visit: No Status: Chronic Priority: Medium Code(s): J44.9 - CHRONIC OBSTRUCTIVE PULMONARY DISEASE, UNSPECIFIED SNOMED Code(s): 13886328 Comment: stable. Continue mometasone, albuterol, tiotropium. (3) Atrial fibrillation Current Visit: No Status: Acute Code(s): I48.91 - UNSPECIFIED ATRIAL FIBRILLATION SNOMED Code(s): 06426560 Comment: No bleeding yet on enoxaparin. Rivaroxaban starting 11/30 10 AM. rate controlled on metoprolol XR, diltiazem. (4) Diabetes Current Visit: No Status: Acute Code(s): E11.9 - TYPE 2 DIABETES MELLITUS WITHOUT COMPLICATIONS SNOMED Code(s): 99474917 Comment: Hold metformin. Lantus and Lispro SS. (5) HTN (hypertension) Current Visit: No Status: Chronic Priority: Medium Code(s): I10 - ESSENTIAL (PRIMARY) HYPERTENSION SNOMED Code(s): 94035993 Comment: Controlled, reducee diltiazem CD 12/02 due to falling, somewhat low BP's, continue metoprolol XR 75. Reduce torsemide 12/02 also. (6) Cellulitis Current Visit: Yes Status: Acute Code(s): L03.90 - CELLULITIS, UNSPECIFIED SNOMED Code(s): 940986353 Comment: L thigh. Seems to be 2 unrelated acute dx's. Started cephalexin 10 AM 11/30. WBC and CRP both somewhat lower on 12/01. Continue IV ceftriaxone.
[2017-12-02] MEDS: Diltiazem CD CAP* 120 MG PO SCH (11:10)
[2017-12-02] MEDS: Metoprolol Succinate XL TAB* 25 MG PO SCH (11:10)
[2017-12-02] MEDS: Spironolactone TAB* 25 MG PO SCH (11:11)
[2017-12-02] MEDS: Torsemide TAB* 20 MG PO SCH ×2 (11:11→11:36)
[2017-12-02] MEDS: Rivaroxaban TAB(*) 15 MG PO SCH ×2 (11:11→22:27)
[2017-12-02] MEDS: cefTRIAXone(*) 1 GM in NS 0.9% 50 ML* 50 ML IVPB SCH (11:31)
[2017-12-02] MEDS: Nystatin TOP POWDER* 15 GM BTL TOPICAL SCH ×3 (11:35→22:21)
[2017-12-02] MEDS: Diltiazem CD CAP* 240 MG PO SCH (11:36)
[2017-12-02] MEDS: Mometasone 220 MCG MDI INH SCH (19:45)
[2017-12-02] MEDS: Pregabalin CAP(*) 50 MG PO SCH (22:26)
[2017-12-02] MEDS: traZODone TAB* 50 MG TAB PO SCH (22:27)
[2017-12-03] MEDS: Levothyroxine TAB* 175 MCG TAB PO SCH (06:01)
[2017-12-03] MEDS: oxyCODONE TAB* 5 MG TAB PO PRN ×3 (06:06→21:44)
[2017-12-03] MEDS: glipiZIDE TAB* 5 MG PO SCH (08:03)
[2017-12-03] MEDS: Atorvastatin* 80 MG TAB PO SCH (08:04)
[2017-12-03] MEDS: Omeprazole CAP* 20 MG PO SCH (08:04)
[2017-12-03] MEDS: Sertraline* 100 MG TAB PO SCH (08:04)
[2017-12-03] MEDS: Torsemide TAB* 20 MG PO SCH (08:04)
[2017-12-03] MEDS: Aspirin EC TAB* 81 MG TAB.EC PO SCH (08:05)
[2017-12-03] MEDS: Ezetimibe TAB* 10 MG PO SCH (08:05)
[2017-12-03] MEDS: Rivaroxaban TAB(*) 15 MG PO SCH (08:05)
[2017-12-03] MEDS: Diltiazem CD CAP* 120 MG PO SCH (08:05)
[2017-12-03] MEDS: Spironolactone TAB* 25 MG PO SCH (08:06)
[2017-12-03] MEDS: Metoprolol Succinate XL TAB* 25 MG PO SCH (08:06)
[2017-12-03] MEDS: Nystatin TOP POWDER* 15 GM BTL TOPICAL SCH ×3 (08:09→21:37)
[2017-12-03] MEDS: Insulin LISPRO* 1 UNITS UNIT SUBCUT SCH ×4 (08:09→21:46)
[2017-12-03] MEDS: Tiotropium CAP.INH* CAP.INH/18 MCG (USE ORDER SET !) INH SCH (09:26)
[2017-12-03] MEDS: cefTRIAXone(*) 1 GM in NS 0.9% 50 ML* 50 ML IVPB SCH (09:34)
--- NOTE | 2017-12-03 11:04 | PN ---
Subjective Date of Service: 12/03/17 Interval History: Pt is feeling weak. When I enter her room she tells me that she needs to urinate and that she had been holding it for a while. When she stood up she urinated on the floor. She also c/o significant pain in her L leg. She has not been moving around well. She does not like the idea of going to rehab but will at least meet with a PT to be evaluated. Additionally the patient states she has noted blood within her ostomy. She tells me that whenever she is started on anticoagulation she bleeds in her ostomy. Objective Active Medications: Albuterol (Ventolin Hfa Inhaler*) 2 puff INH Q4H PRN PRN Reason: SOB/WHEEZING Alprazolam (Xanax Tab*) 0.25 mg PO TID PRN PRN Reason: ANXIETY Aspirin (Aspirin Ec Tab*) 81 mg PO DAILY [facility] Last Admin: 12/03/17 08:05 Dose: 81 mg Atorvastatin Calcium (Lipitor*) 80 mg PO DAILY [facility] Last Admin: 12/03/17 08:04 Dose: 80 mg Dextrose (D50w Syringe 50 Ml*) 12.5 gm IV PUSH .FOR FS < 60 - SS PRN PRN Reason: FS < 60 Diltiazem HCl (Cardizem Cd Cap*) 120 mg PO DAILY [facility] Last Admin: 12/03/17 08:05 Dose: 120 mg Ezetimibe (Zetia Tab*) 10 mg PO DAILY [facility] Last Admin: 12/03/17 08:05 Dose: 10 mg Glipizide (Glucotrol Tab*) 2.5 mg PO DAILY [facility] Last Admin: 12/03/17 08:03 Dose: 2.5 mg Ceftriaxone Sodium 1 gm/ (Sodium Chloride) 50 mls @ 200 mls/hr IVPB Q24H [facility] Last Admin: 12/03/17 09:34 Dose: 200 mls/hr Insulin Human Lispro (Humalog*) 0 units SUBCUT ACHS [facility]; Protocol Last Admin: 12/03/17 08:09 Dose: 2 unit Levothyroxine Sodium (Synthroid Tab*) 175 mcg PO DAILY@0600 [facility] Last Admin: 12/03/17 06:01 Dose: 175 mcg Metoprolol Succinate (Toprol Xl Tab*) 75 mg PO DAILY [facility] Last Admin: 12/03/17 08:06 Dose: 75 mg Mometasone Furoate (Asmanex 220 Mcg Mdi *) 2 puff INH BEDTIME [facility] Last Admin: 12/02/17 19:45 Dose: 2 puff Nystatin (Nystatin Top Powder*) 1 applic TOPICAL TID [facility] Last Admin: 12/03/17 08:09 Dose: 1 applic Omeprazole (Prilosec Cap*) 40 mg PO DAILY [facility] Last Admin: 12/03/17 08:04 Dose: 40 mg Ondansetron HCl (Zofran Inj*) 4 mg IV Q6H PRN PRN Reason: NAUSEA/VOMITING Last Admin: 11/30/17 20:15 Dose: 4 mg Ondansetron HCl (Zofran Odt Tab*) 4 mg SL Q6H PRN PRN Reason: NAUSEA/VOMITING Oxycodone HCl (Roxycodone Tab*) 5 mg PO Q4H PRN PRN Reason: PAIN Last Admin: 11/30/17 09:17 Dose: 5 mg Oxycodone HCl (Roxycodone Tab*) 10 mg PO Q4H PRN PRN Reason: SEVERE PAIN Last Admin: 12/03/17 06:06 Dose: 10 mg Pregabalin (Lyrica Cap(*)) 50 mg PO BEDTIME [facility] Last Admin: 12/02/17 22:26 Dose: 50 mg Rivaroxaban (Xarelto(*)) 15 mg PO BID [facility] Last Admin: 12/03/17 08:05 Dose: 15 mg Sertraline HCl (Zoloft*) 200 mg PO DAILY [facility] Last Admin: 12/03/17 08:04 Dose: 200 mg Spironolactone (Aldactone Tab*) 25 mg PO DAILY [facility] Last Admin: 12/03/17 08:06 Dose: 25 mg Tiotropium [place] (Spiriva Cap.Inh*) 1 cap INH DAILY [facility] Last Admin: 12/03/17 09:26 Dose: 1 cap Torsemide (Demadex*) 20 mg PO DAILY [facility] Last Admin: 12/03/17 08:04 Dose: 20 mg Trazodone HCl (Desyrel Tab*) 100 mg PO BEDTIME [facility] Last Admin: 12/02/17 22:27 Dose: 100 mg Vital Signs - 8 hr 12/03/17 12/03/17 12/03/17 03:40 06:06 07:22 Temperature 97.6 F 98.3 F Pulse Rate 82 94 Respiratory 16 18 18 Rate Blood Pressure 116/68 119/59 (mmHg) O2 Sat by Pulse 99 97 Oximetry 12/03/17 12/03/17 08:09 09:28 Temperature Pulse Rate 103 Respiratory 16 18 Rate Blood Pressure (mmHg) O2 Sat by Pulse 95 Oximetry Oxygen Devices in Use Now: None Appearance: Middle aged obese female sitting up in bed, NAD Eyes: No Scleral Icterus Ears/Nose/Mouth/Throat: Mucous Membranes Moist Respiratory: Symmetrical Chest Expansion and Respiratory Effort, Clear to Auscultation - with RLL crackles Cardiovascular: NL Sounds; No Murmurs; No JVD, RRR, - - marked edema of the L LE compared to the R Abdominal: NL Sounds; No Tenderness; No Distention, - - bloody stool noted within the ostomy Extremities: No Clubbing, Cyanosis Skin: No Nodules or Sclerosis Neurological: Alert and Oriented x 3 Result Diagrams: 12/01/17 05:57 12/01/17 05:57 Microbiology and Other Data: Microbiology 11/30/17 06:32 Urine Culture - Final Urine No Growth (<1,000 CFU/mL) Assess/Plan/Problems-Billing Ms Ziegler is a 67 yo F who has a h/o COPD with chronic hypoxic respiratory failure requiring 2L O2 continuously, afib, CAD, HTN, diastolic CHF, RYAN and previous DVT/PE who presented to the ER with c/o L LE pain and was found to have an extensive DVT. - Patient Problems (1) Lower GI bleed Current Visit: Yes Status: Acute Code(s): K92.2 - GASTROINTESTINAL HEMORRHAGE, UNSPECIFIED SNOMED Code(s): 45482692 Comment: The patient appears to have blood in her ostomy. Stool guaiac sent and pending. Pt give history that when she is started on anticoagulation she finds blood in her ostomy. Will discuss with Dr. Huerta. Check CBC now. ? scope to try to identify source (previously there was questionable report of AVMs). Will need to consider IVC filter instead of anticoagulation given the GI bleeding. (2) Left leg DVT Current Visit: Yes Status: Acute Code(s): I82.402 - ACUTE EMBOLISM AND THOMBOS UNSP DEEP VEINS OF L LOW EXTREM SNOMED Code(s): 031310559 Comment: Hold xarelto because as above I believe the patient is having a lower GI bleed. Will discuss with general surgery about placing an IVC filter. (3) Cellulitis Current Visit: Yes Status: Acute Code(s): L03.90 - CELLULITIS, UNSPECIFIED SNOMED Code(s): 442401279 Comment: No erythema noted by myself to the L thigh. ? resolved secondary to Abx treatment. Will international exchange coordinator to keflex to continue treating for 7 days total. Follow up CRP in next couple of days. (4) Atrial fibrillation Current Visit: Yes Status: Acute Code(s): I48.91 - UNSPECIFIED ATRIAL FIBRILLATION SNOMED Code(s): 94707993 Comment: The patient remains in rate controlled afib. Continue metoprolol and diltiazem. Stopping xarelto due to GI bleeding. (5) COPD (chronic obstructive pulmonary disease) Current Visit: Yes Status: Acute Code(s): J44.9 - CHRONIC OBSTRUCTIVE PULMONARY DISEASE, UNSPECIFIED SNOMED Code(s): 66230676 Comment: No signs of exacerbation. Conitnue current medication regimen. (6) DM2 (diabetes mellitus, type 2) Current Visit: Yes Status: Chronic Comment: Last A1c 7.0% in 10/2017. Continue glipizide, metformin currently being held. (7) Diastolic CHF Current Visit: No Status: Chronic Code(s): I50.30 - UNSPECIFIED DIASTOLIC ( CONGESTIVE) HEART FAILURE SNOMED Code(s): 171118762 Comment: Currently euvolemic. Monitor fluid status. (8) HTN (hypertension) Current Visit: Yes Status: Chronic Code(s): I10 - ESSENTIAL (PRIMARY) HYPERTENSION SNOMED Code(s): 15988665 Comment: BP is under very good control-diltiazem dose reduced and metoprolol maintained at current dose (9) Depression Current Visit: Yes Status: Chronic Code(s): F32.9 - MAJOR DEPRESSIVE DISORDER, SINGLE EPISODE, UNSPECIFIED SNOMED Code(s): 08576691 Comment: Continue trazodone, xanax and zoloft. (10) HLD (hyperlipidemia) Current Visit: Yes Status: Chronic Code(s): E78.5 - HYPERLIPIDEMIA, UNSPECIFIED SNOMED Code(s): 08814599 Comment: Continue lipitor. (11) Hypothyroidism (acquired) Current Visit: Yes Status: Chronic Code(s): E03.9 - HYPOTHYROIDISM, UNSPECIFIED SNOMED Code(s): 355669554 Comment: TSH low at 0.27. Will reduce synthroid to 150mcg daily. (12) GERD (gastroesophageal reflux disease) Current Visit: Yes Status: Chronic Code(s): K21.9 - GASTRO-ESOPHAGEAL REFLUX DISEASE WITHOUT ESOPHAGITIS SNOMED Code(s): 978249868 Comment: Continue omeprazole. (13) DVT prophylaxis Current Visit: Yes Status: Acute Code(s): [id number] - SNOMED Code(s): 218967632 Comment: pt had been on xarelto-this is now being stopped secondary to GI bleeding. No SCD secondary to DVT (14) Full code status Current Visit: Yes Status: Acute Code(s): Z78.9 - OTHER SPECIFIED HEALTH STATUS SNOMED Code(s): 258764947
[2017-12-03 11:25] LABS: Hematocrit 32 % (35-47); Hemoglobin 10.1 g/dl (12.0-16.0); Mean Corpuscular HGB Conc 32 g/dl (31-36); Mean Corpuscular Hemoglobin 25 pg (27-31); Mean Corpuscular Volume 79 fL (80-97); Mean Platelet Volume 8.4 um3 (7.4-10.4); Platelet Count 180 10^3/ul (150-450); Red Blood Count 4.07 10^6/ul (4.00-5.40); Red Cell Distribution Width 19 % (10.5-15); White Blood Count 10.3 10^3/ul (3.5-10.8)
[2017-12-03 11:35] LABS: EGFR Non-African American 66.7 (>60)
--- NOTE | 2017-12-03 18:57 | PN ---
Progress Note - Progress Note Date of Service: 12/03/17 Note: Surgery I met with Ms. Ziegler to explain the IVC filter to her. She is a 67 y.o. female who is experiencing GI bleeding while on anticoagulation for a DVT. She therefore needs an IVC filter. I briefly explained to her the principle of IVC filter and answered questions. She recognized the explanation having heard Dr. Schafer's explanation earlier. She expressed concern that she has been told she is not a candidate for a long procedure and I was able to reassure her that placing an IVC filter should not take very long. Will check on her tomorrow. Consuelo
[2017-12-03 20:30] LABS: Hematocrit 30 % (35-47); Hemoglobin 9.4 g/dl (12.0-16.0)
[2017-12-03] MEDS: Mometasone 220 MCG MDI INH SCH (20:46)
[2017-12-03] MEDS: Pregabalin CAP(*) 50 MG PO SCH (21:45)
[2017-12-03] MEDS: traZODone TAB* 50 MG TAB PO SCH (21:45)
[2017-12-04] MEDS: oxyCODONE TAB* 5 MG TAB PO PRN ×3 (06:01→17:19)
[2017-12-04] MEDS: Levothyroxine TAB* 150 MCG TAB PO SCH (06:01)
[2017-12-04 07:14] LABS: Hematocrit 32 % (35-47); Hemoglobin 9.8 g/dl (12.0-16.0); Mean Corpuscular HGB Conc 31 g/dl (31-36); Mean Corpuscular Hemoglobin 25 pg (27-31); Mean Corpuscular Volume 80 fL (80-97); Mean Platelet Volume 8.3 um3 (7.4-10.4); Platelet Count 174 10^3/ul (150-450); Red Blood Count 3.97 10^6/ul (4.00-5.40); Red Cell Distribution Width 18 % (10.5-15); White Blood Count 9.2 10^3/ul (3.5-10.8)
[2017-12-04] MEDS: Insulin LISPRO* 1 UNITS UNIT SUBCUT SCH ×4 (07:45→21:06)
[2017-12-04] MEDS: Atorvastatin* 80 MG TAB PO SCH (07:50)
[2017-12-04] MEDS: Ezetimibe TAB* 10 MG PO SCH (07:50)
[2017-12-04] MEDS: Cephalexin CAP* 500 MG PO SCH ×4 (07:50→21:04)
[2017-12-04] MEDS: Diltiazem CD CAP* 120 MG PO SCH (07:50)
[2017-12-04] MEDS: Torsemide TAB* 20 MG PO SCH (07:50)
[2017-12-04] MEDS: glipiZIDE TAB* 5 MG PO SCH (07:51)
[2017-12-04] MEDS: Spironolactone TAB* 25 MG PO SCH (07:52)
[2017-12-04] MEDS: Omeprazole CAP* 20 MG PO SCH (07:52)
[2017-12-04] MEDS: Metoprolol Succinate XL TAB* 25 MG PO SCH (07:52)
[2017-12-04] MEDS: Aspirin EC TAB* 81 MG TAB.EC PO SCH (07:53)
[2017-12-04] MEDS: Nystatin TOP POWDER* 15 GM BTL TOPICAL SCH ×3 (07:55→20:51)
[2017-12-04] MEDS: Tiotropium CAP.INH* CAP.INH/18 MCG (USE ORDER SET !) INH SCH (08:52)
--- NOTE | 2017-12-04 13:02 | PN ---
Subjective Date of Service: 12/04/17 Interval History: Pt is feeling about the same today. She continues to have 7-8/10 pain in her L leg. She denies any SOB more than usual. No chest pain. She noticed blood in her ostomy through last evening but none this AM. Objective Active Medications: Albuterol (Ventolin Hfa Inhaler*) 2 puff INH Q4H PRN PRN Reason: SOB/WHEEZING Alprazolam (Xanax Tab*) 0.25 mg PO TID PRN PRN Reason: ANXIETY Aspirin (Aspirin Ec Tab*) 81 mg PO DAILY [facility] Last Admin: 12/04/17 07:53 Dose: 81 mg Atorvastatin Calcium (Lipitor*) 80 mg PO DAILY [facility] Last Admin: 12/04/17 07:50 Dose: 80 mg Cephalexin HCl (Keflex Cap*) 500 mg PO QID [facility] Last Admin: 12/04/17 12:33 Dose: 500 mg Dextrose (D50w Syringe 50 Ml*) 12.5 gm IV PUSH .FOR FS < 60 - SS PRN PRN Reason: FS < 60 Diltiazem HCl (Cardizem Cd Cap*) 120 mg PO DAILY [facility] Last Admin: 12/04/17 07:50 Dose: 120 mg Ezetimibe (Zetia Tab*) 10 mg PO DAILY [facility] Last Admin: 12/04/17 07:50 Dose: 10 mg Glipizide (Glucotrol Tab*) 2.5 mg PO DAILY [facility] Last Admin: 12/04/17 07:51 Dose: 2.5 mg Insulin Human Lispro (Humalog*) 0 units SUBCUT ACHS [facility]; Protocol Last Admin: 12/04/17 12:13 Dose: Not Given Levothyroxine Sodium (Synthroid Tab*) 150 mcg PO DAILY@0600 [facility] Last Admin: 12/04/17 06:01 Dose: 150 mcg Metoprolol Succinate (Toprol Xl Tab*) 75 mg PO DAILY [facility] Last Admin: 12/04/17 07:52 Dose: 75 mg Mometasone Furoate (Asmanex 220 Mcg Mdi *) 2 puff INH BEDTIME [facility] Last Admin: 12/03/17 20:46 Dose: 2 puff Nystatin (Nystatin Top Powder*) 1 applic TOPICAL TID [facility] Last Admin: 12/04/17 12:33 Dose: Not Given Omeprazole (Prilosec Cap*) 40 mg PO DAILY [facility] Last Admin: 12/04/17 07:52 Dose: 40 mg Ondansetron HCl (Zofran Inj*) 4 mg IV Q6H PRN PRN Reason: NAUSEA/VOMITING Last Admin: 11/30/17 20:15 Dose: 4 mg Ondansetron HCl (Zofran Odt Tab*) 4 mg SL Q6H PRN PRN Reason: NAUSEA/VOMITING Oxycodone HCl (Roxycodone Tab*) 5 mg PO Q4H PRN PRN Reason: PAIN Last Admin: 11/30/17 09:17 Dose: 5 mg Oxycodone HCl (Roxycodone Tab*) 10 mg PO Q4H PRN PRN Reason: SEVERE PAIN Last Admin: 12/04/17 10:33 Dose: 10 mg Pregabalin (Lyrica Cap(*)) 50 mg PO BEDTIME [facility] Last Admin: 12/03/17 21:45 Dose: 50 mg Spironolactone (Aldactone Tab*) 25 mg PO DAILY [facility] Last Admin: 12/04/17 07:52 Dose: 25 mg Tiotropium [place] (Spiriva Cap.Inh*) 1 cap INH DAILY [facility] Last Admin: 12/04/17 08:52 Dose: 1 cap Torsemide (Demadex*) 20 mg PO DAILY [facility] Last Admin: 12/04/17 07:50 Dose: 20 mg Trazodone HCl (Desyrel Tab*) 100 mg PO BEDTIME [facility] Last Admin: 12/03/17 21:45 Dose: 100 mg Vital Signs - 8 hr 12/04/17 12/04/17 12/04/17 06:01 07:49 08:00 Temperature 98.7 F Pulse Rate 89 Respiratory 16 14 18 Rate Blood Pressure 112/71 (mmHg) O2 Sat by Pulse 98 Oximetry 12/04/17 12/04/17 12/04/17 08:53 10:33 11:43 Temperature 98.1 F Pulse Rate 63 70 Respiratory 16 16 16 Rate Blood Pressure (mmHg) O2 Sat by Pulse 99 100 Oximetry 12/04/17 12/04/17 11:45 12:33 Temperature 98.1 F Pulse Rate 55 Respiratory 16 14 Rate Blood Pressure 93/70 (mmHg) O2 Sat by Pulse 100 Oximetry Oxygen Devices in Use Now: Nasal Cannula Appearance: MIddle aged female sitting up in a chair, NAD Eyes: No Scleral Icterus Ears/Nose/Mouth/Throat: Mucous Membranes Moist Respiratory: Symmetrical Chest Expansion and Respiratory Effort, Clear to Auscultation - few crackles bilaterally Cardiovascular: NL Sounds; No Murmurs; No JVD, - - irregularly irregular, mildly tachycardic, nonpitting edema to L LE Abdominal: NL Sounds; No Tenderness; No Distention Extremities: No Clubbing, Cyanosis Skin: No Nodules or Sclerosis Neurological: Alert and Oriented x 3 Result Diagrams: 12/04/17 06:53 12/03/17 11:11 Microbiology and Other Data: Microbiology 11/30/17 06:32 Urine Culture - Final Urine No Growth (<1,000 CFU/mL) Assess/Plan/Problems-Billing Ms Ziegler is a 67 yo F who has a h/o COPD with chronic hypoxic respiratory failure requiring 2L O2 continuously, afib, CAD, HTN, diastolic CHF, RYAN and previous DVT/PE who presented to the ER with c/o L LE pain and was found to have an extensive DVT. - Patient Problems (1) Lower GI bleed Current Visit: Yes Status: Acute Code(s): K92.2 - GASTROINTESTINAL HEMORRHAGE, UNSPECIFIED SNOMED Code(s): 54423354 Comment: NO further blood in the ostomy. Stool guaiac positive. Xarelto discontinued. Ultimately given the patient's history plan decided upon was to stop xarelto and place a filter. I did not ask for GI consult as previously with just stopping the anticoagulation the bleeding would stop. Additionally she will not be going back on anticoagulation. She will need to follow up with as an outpatient. (2) Left leg DVT Current Visit: Yes Status: Acute Code(s): I82.402 - ACUTE EMBOLISM AND THOMBOS UNSP DEEP VEINS OF L LOW EXTREM SNOMED Code(s): 680334633 Comment: IVC filter to be placed tomorrow. Start SQ heparin for likely only minimal benefit. (3) Cellulitis Current Visit: Yes Status: Acute Code(s): L03.90 - CELLULITIS, UNSPECIFIED SNOMED Code(s): 298999252 Comment: No erythema noted by myself to the L thigh. ? resolved secondary to Abx treatment. Continue keflex to treat for a total of 7 days. (4) Atrial fibrillation Current Visit: Yes Status: Acute Code(s): I48.91 - UNSPECIFIED ATRIAL FIBRILLATION SNOMED Code(s): 65961480 Comment: The patient remains in afib. Continue metoprolol and diltiazem. Resume digoxin (held on admission secondary to high level). No anticoagulation. (5) COPD (chronic obstructive pulmonary disease) Current Visit: Yes Status: Acute Code(s): J44.9 - CHRONIC OBSTRUCTIVE PULMONARY DISEASE, UNSPECIFIED SNOMED Code(s): 56964099 Comment: No signs of exacerbation. Conitnue current medication regimen. (6) DM2 (diabetes mellitus, type 2) Current Visit: Yes Status: Chronic Comment: Last A1c 7.0% in 10/2017. Continue glipizide, metformin currently being held. (7) Diastolic CHF Current Visit: Yes Status: Chronic Code(s): I50.30 - UNSPECIFIED DIASTOLIC ( CONGESTIVE) HEART FAILURE SNOMED Code(s): 691352873 Comment: Currently euvolemic. Monitor fluid status. (8) HTN (hypertension) Current Visit: Yes Status: Chronic Code(s): I10 - ESSENTIAL (PRIMARY) HYPERTENSION SNOMED Code(s): 87233087 Comment: BP is under very good control. Monitor on current meds/doses. (9) Depression Current Visit: Yes Status: Chronic Code(s): F32.9 - MAJOR DEPRESSIVE DISORDER, SINGLE EPISODE, UNSPECIFIED SNOMED Code(s): 48202984 Comment: Continue trazodone, xanax and zoloft. (10) HLD (hyperlipidemia) Current Visit: Yes Status: Chronic Code(s): E78.5 - HYPERLIPIDEMIA, UNSPECIFIED SNOMED Code(s): 38899929 Comment: Continue lipitor. (11) Hypothyroidism (acquired) Current Visit: Yes Status: Chronic Code(s): E03.9 - HYPOTHYROIDISM, UNSPECIFIED SNOMED Code(s): 251999210 Comment: TSH low at 0.27. Continue synthroid 150mcg daily. (12) GERD (gastroesophageal reflux disease) Current Visit: Yes Status: Chronic Code(s): K21.9 - GASTRO-ESOPHAGEAL REFLUX DISEASE WITHOUT ESOPHAGITIS SNOMED Code(s): 473031358 Comment: Continue omeprazole. (13) DVT prophylaxis Current Visit: Yes Status: Acute Code(s): PPK4477 - SNOMED Code(s): 885405239 Comment: SQ heparin (14) Full code status Current Visit: Yes Status: Acute Code(s): Z78.9 - OTHER SPECIFIED HEALTH STATUS SNOMED Code(s): 093756342
[2017-12-04] MEDS ORDERED: Digoxin TAB* 0.25 MG PO ONE (13:06)
[2017-12-04] MEDS: Heparin VIAL(*) 5000 UNITS/ML VIAL (FIVE THOUSAND) SUBCUT SCH ×2 (13:58→21:06)
[2017-12-04] MEDS: Mometasone 220 MCG MDI INH SCH (20:13)
[2017-12-04] MEDS: Pregabalin CAP(*) 50 MG PO SCH (21:05)
[2017-12-04] MEDS: traZODone TAB* 50 MG TAB PO SCH (21:05)
[2017-12-05] MEDS: Heparin VIAL(*) 5000 UNITS/ML VIAL (FIVE THOUSAND) SUBCUT SCH (06:15)
[2017-12-05] MEDS: Levothyroxine TAB* 150 MCG TAB PO SCH (06:23)
[2017-12-05] MEDS: Insulin LISPRO* 1 UNITS UNIT SUBCUT SCH ×4 (07:46→20:23)
[2017-12-05] MEDS ORDERED: LORazepam INJ* 2 MG/ML 1 ML VIAL IV PUSH ONE (07:51)
--- NOTE | 2017-12-05 07:57 | PN ---
Subjective Date of Service: 12/05/17 Interval History: Pt is very nervous about her procedure today. She states she could use some medication to help calm her down. She states she continues to have pain in her L leg and it is essentially unchanged. However, she states the pain is tolerable at the level its at. Objective Active Medications: Albuterol (Ventolin Hfa Inhaler*) 2 puff INH Q4H PRN PRN Reason: SOB/WHEEZING Alprazolam (Xanax Tab*) 0.25 mg PO TID PRN PRN Reason: ANXIETY Aspirin (Aspirin Ec Tab*) 81 mg PO DAILY [facility] Last Admin: 12/04/17 07:53 Dose: 81 mg Atorvastatin Calcium (Lipitor*) 80 mg PO DAILY [facility] Last Admin: 12/04/17 07:50 Dose: 80 mg Cephalexin HCl (Keflex Cap*) 500 mg PO QID [facility] Last Admin: 12/04/17 21:04 Dose: 500 mg Dextrose (D50w Syringe 50 Ml*) 12.5 gm IV PUSH .FOR FS < 60 - SS PRN PRN Reason: FS < 60 Diltiazem HCl (Cardizem Cd Cap*) 120 mg PO DAILY [facility] Last Admin: 12/04/17 07:50 Dose: 120 mg Ezetimibe (Zetia Tab*) 10 mg PO DAILY [facility] Last Admin: 12/04/17 07:50 Dose: 10 mg Glipizide (Glucotrol Tab*) 2.5 mg PO DAILY [facility] Last Admin: 12/04/17 07:51 Dose: 2.5 mg Heparin Sodium (Porcine) (Heparin Vial(*)) 5,000 units SUBCUT Q8HR [facility] Last Admin: 12/05/17 06:15 Dose: Not Given Insulin Human Lispro (Humalog*) 0 units SUBCUT ACHS [facility]; Protocol Last Admin: 12/05/17 07:46 Dose: Not Given Levothyroxine Sodium (Synthroid Tab*) 150 mcg PO DAILY@0600 [facility] Last Admin: 12/05/17 06:23 Dose: 150 mcg Metoprolol Succinate (Toprol Xl Tab*) 75 mg PO DAILY [facility] Last Admin: 12/04/17 07:52 Dose: 75 mg Mometasone Furoate (Asmanex 220 Mcg Mdi *) 2 puff INH BEDTIME [facility] Last Admin: 12/04/17 20:13 Dose: 2 puff Nystatin (Nystatin Top Powder*) 1 applic TOPICAL TID [facility] Last Admin: 12/04/17 20:51 Dose: Not Given Omeprazole (Prilosec Cap*) 40 mg PO DAILY [facility] Last Admin: 12/04/17 07:52 Dose: 40 mg Ondansetron HCl (Zofran Inj*) 4 mg IV Q6H PRN PRN Reason: NAUSEA/VOMITING Last Admin: 11/30/17 20:15 Dose: 4 mg Ondansetron HCl (Zofran Odt Tab*) 4 mg SL Q6H PRN PRN Reason: NAUSEA/VOMITING Oxycodone HCl (Roxycodone Tab*) 5 mg PO Q4H PRN PRN Reason: PAIN Last Admin: 11/30/17 09:17 Dose: 5 mg Oxycodone HCl (Roxycodone Tab*) 10 mg PO Q4H PRN PRN Reason: SEVERE PAIN Last Admin: 12/04/17 17:19 Dose: 10 mg Pregabalin (Lyrica Cap(*)) 50 mg PO BEDTIME [facility] Last Admin: 12/04/17 21:05 Dose: 50 mg Spironolactone (Aldactone Tab*) 25 mg PO DAILY [facility] Last Admin: 12/04/17 07:52 Dose: 25 mg Tiotropium [place] (Spiriva Cap.Inh*) 1 cap INH DAILY [facility] Last Admin: 12/04/17 08:52 Dose: 1 cap Torsemide (Demadex*) 20 mg PO DAILY [facility] Last Admin: 12/04/17 07:50 Dose: 20 mg Trazodone HCl (Desyrel Tab*) 100 mg PO BEDTIME [facility] Last Admin: 12/04/17 21:05 Dose: 100 mg Vital Signs - 8 hr 12/05/17 12/05/17 02:56 07:26 Temperature 97.7 F 98.0 F Pulse Rate 83 91 Respiratory 16 16 Rate Blood Pressure 111/58 123/61 (mmHg) O2 Sat by Pulse 99 98 Oximetry Oxygen Devices in Use Now: Nasal Cannula Appearance: Middle aged female lying in bed, NAD Eyes: No Scleral Icterus Ears/Nose/Mouth/Throat: Mucous Membranes Moist Respiratory: Symmetrical Chest Expansion and Respiratory Effort, Clear to Auscultation - anteriorly Cardiovascular: - - irregularly irregular, controlled rate, L>R LE edema Abdominal: NL Sounds; No Tenderness; No Distention, - - red-brown stool in ostomy Extremities: No Clubbing, Cyanosis Skin: No Nodules or Sclerosis Neurological: Alert and Oriented x 3 Result Diagrams: 12/04/17 06:53 12/03/17 11:11 Microbiology and Other Data: Microbiology 11/30/17 06:32 Urine Culture - Final Urine No Growth (<1,000 CFU/mL) Assess/Plan/Problems-Billing Ms Ziegler is a 67 yo F who has a h/o COPD with chronic hypoxic respiratory failure requiring 2L O2 continuously, afib, CAD, HTN, diastolic CHF, RYAN and previous DVT/PE who presented to the ER with c/o L LE pain and was found to have an extensive DVT. - Patient Problems (1) Lower GI bleed Current Visit: Yes Status: Acute Code(s): K92.2 - GASTROINTESTINAL HEMORRHAGE, UNSPECIFIED SNOMED Code(s): 80513448 Comment: Pt again is noticing blood in her ostomy. Will discuss with GI today for possible scope though historically when anticoagulation has been stopped her bleeding stops. Follow up CBC today. (2) Left leg DVT Current Visit: Yes Status: Acute Code(s): I82.402 - ACUTE EMBOLISM AND THOMBOS UNSP DEEP VEINS OF L LOW EXTREM SNOMED Code(s): 670612681 Comment: IVC filter to be placed today. Once back from OR will resume SQ heparin tonight. PT eval as pt is having a hard time getting around. (3) Cellulitis Current Visit: Yes Status: Acute Code(s): L03.90 - CELLULITIS, UNSPECIFIED SNOMED Code(s): 711456430 Comment: No erythema noted by myself to the L thigh. Follow up CBC and CRP today. Today is D#5/7. (4) Atrial fibrillation Current Visit: Yes Status: Acute Code(s): I48.91 - UNSPECIFIED ATRIAL FIBRILLATION SNOMED Code(s): 75710924 Comment: The patient remains in afib-HR is borderline fast. Will give digoxin 0.125mg IV this AM. Metoprolol and diltiazem have been held for surgery- will need to resume as soon as possible after surgery. (5) COPD (chronic obstructive pulmonary disease) Current Visit: Yes Status: Acute Code(s): J44.9 - CHRONIC OBSTRUCTIVE PULMONARY DISEASE, UNSPECIFIED SNOMED Code(s): 06054549 Comment: No signs of exacerbation. Conitnue current medication regimen. (6) DM2 (diabetes mellitus, type 2) Current Visit: Yes Status: Chronic Comment: Last A1c 7.0% in 10/2017. Continue glipizide, metformin currently being held. (7) Diastolic CHF Current Visit: Yes Status: Chronic Code(s): I50.30 - UNSPECIFIED DIASTOLIC ( CONGESTIVE) HEART FAILURE SNOMED Code(s): 861385367 Comment: Currently euvolemic. Monitor fluid status. (8) HTN (hypertension) Current Visit: Yes Status: Chronic Code(s): I10 - ESSENTIAL (PRIMARY) HYPERTENSION SNOMED Code(s): 17951858 Comment: BP is under very good control. Monitor on current meds/doses. (9) Depression Current Visit: Yes Status: Chronic Code(s): F32.9 - MAJOR DEPRESSIVE DISORDER, SINGLE EPISODE, UNSPECIFIED SNOMED Code(s): 46199338 Comment: Continue trazodone, xanax and zoloft. (10) HLD (hyperlipidemia) Current Visit: Yes Status: Chronic Code(s): E78.5 - HYPERLIPIDEMIA, UNSPECIFIED SNOMED Code(s): 05521822 Comment: Continue lipitor. (11) Hypothyroidism (acquired) Current Visit: Yes Status: Chronic Code(s): E03.9 - HYPOTHYROIDISM, UNSPECIFIED SNOMED Code(s): 261883640 Comment: TSH low at 0.27. Continue synthroid 150mcg daily. (12) GERD (gastroesophageal reflux disease) Current Visit: Yes Status: Chronic Code(s): K21.9 - GASTRO-ESOPHAGEAL REFLUX DISEASE WITHOUT ESOPHAGITIS SNOMED Code(s): 510975725 Comment: Continue omeprazole. (13) DVT prophylaxis Current Visit: Yes Status: Acute Code(s): RIQ6500 - SNOMED Code(s): 625054577 Comment: SQ heparin-resume tonight. (14) Full code status Current Visit: Yes Status: Acute Code(s): Z78.9 - OTHER SPECIFIED HEALTH STATUS SNOMED Code(s): 350919292
[2017-12-05] MEDS ORDERED: Digoxin IV* 0.5 MG/2 ML AMP (0.25 MG/ML) IV SLOW PU ONE (08:02)
[2017-12-05 08:34] LABS: Hematocrit 31 % (35-47); Hemoglobin 9.6 g/dl (12.0-16.0); Mean Corpuscular HGB Conc 31 g/dl (31-36); Mean Corpuscular Hemoglobin 25 pg (27-31); Mean Corpuscular Volume 79 fL (80-97); Mean Platelet Volume 8.3 um3 (7.4-10.4); Platelet Count 188 10^3/ul (150-450); Red Blood Count 3.89 10^6/ul (4.00-5.40); Red Cell Distribution Width 18 % (10.5-15); White Blood Count 8.2 10^3/ul (3.5-10.8)
[2017-12-05] MEDS: Tiotropium CAP.INH* CAP.INH/18 MCG (USE ORDER SET !) INH SCH (08:46)
[2017-12-05 08:58] LABS: EGFR Non-African American 94.3 (>60)
[2017-12-05] MEDS: Metoprolol Succinate XL TAB* 25 MG PO SCH (09:38)
[2017-12-05] MEDS: Omeprazole CAP* 20 MG PO SCH (09:57)
[2017-12-05] MEDS: Atorvastatin* 80 MG TAB PO SCH (09:57)
[2017-12-05] MEDS: Diltiazem CD CAP* 120 MG PO SCH (09:57)
[2017-12-05] MEDS: Cephalexin CAP* 500 MG PO SCH ×4 (09:57→20:22)
[2017-12-05] MEDS: Ezetimibe TAB* 10 MG PO SCH (09:57)
[2017-12-05] MEDS: glipiZIDE TAB* 5 MG PO SCH (09:57)
[2017-12-05] MEDS: Aspirin EC TAB* 81 MG TAB.EC PO SCH (09:57)
[2017-12-05] MEDS: Nystatin TOP POWDER* 15 GM BTL TOPICAL SCH ×3 (09:57→21:26)
[2017-12-05] MEDS: Torsemide TAB* 20 MG PO SCH (09:58)
[2017-12-05] MEDS: Spironolactone TAB* 25 MG PO SCH (09:58)
[2017-12-05] MEDS ORDERED: Heparin DIALYSIS ONLY(*) 1,000 UNITS/ML VIAL ONE (10:05)
[2017-12-05] MEDS ORDERED: Lidocaine 1% INJ* 10 MG/ML 30 ML SDV ONE (10:05)
[2017-12-05] MEDS ORDERED: Midazolam* 1 MG/ML 5 ML VIAL (5 MG) ONE (10:37)
[2017-12-05] MEDS ORDERED: fentaNYL* 50 MCG/ML 2 ML VIAL (100 MCG VIAL) ONE (10:37)
[2017-12-05] MEDS ORDERED: PEG 3000 GI LAVAGE* 1 GALLON PO ONE (12:00)
[2017-12-05] MEDS ORDERED: Ondansetron INJ* 2 MG/ML VIAL ONE (12:28)
[2017-12-05] MEDS ORDERED: Propofol* 10 MG/ML 20 ML BTL IV PUSH ONE (12:28)
[2017-12-05] MEDS ORDERED: Lidocaine 2% PF * 5 ML VIAL ONE (12:28)
[2017-12-05] MEDS ORDERED: Naloxone* 0.4 MG/ML 1 ML VIAL IV PRN (13:00)
[2017-12-05] MEDS ORDERED: DiMENhydriNATE IV* 50 MG/ML VIAL IV PUSH PRN (13:00)
[2017-12-05] MEDS ORDERED: oxyCODONE TAB* 5 MG TAB PO PRN (13:00)
[2017-12-05] MEDS ORDERED: Acetaminophen TAB* 325 MG PO PRN (13:00)
[2017-12-05] MEDS: oxyCODONE TAB* 5 MG TAB PO PRN ×2 (15:03→20:41)
--- NOTE | 2017-12-05 18:11 | RAD ---
INDICATION: IVC filter placement COMPARISON: None FINDINGS: 135.9 seconds of fluoroscopy were provided for the surgical department. Fluoroscopic spot imaging of the abdomen were obtained for operative control and show placement of an IVC filter at the L1-L2 level . CPT II Codes: G9500 (fluoro time doc)
[2017-12-05] MEDS: traZODone TAB* 50 MG TAB PO SCH (20:21)
[2017-12-05] MEDS: Pregabalin CAP(*) 50 MG PO SCH (20:22)
[2017-12-05] MEDS: Mometasone 220 MCG MDI INH SCH (20:24)
--- NOTE | 2017-12-05 21:24 | CONS ---
CC: Sena Schafer DO; Evonne Olmedo DO * GASTROENTEROLOGY CONSULTATION REPORT: DATE OF CONSULT: 12/05/17 HOSPITAL PROVIDER: Sena Schafer DO REASON FOR CONSULT: Bright red blood in the ostomy. HISTORY OF PRESENT ILLNESS: Mercy is a pleasant 67-year-old female with multiple comorbidities including a bioprosthetic aortic valve replacement, CABG , diabetes mellitus, atrial fibrillation, history of DVT and PE, and colostomy secondary to an obstruction in the distant past. She has a history of gastrointestinal bleeding due to anticoagulation therapy in the past and is followed by Dr. Simons, GI at [place]. Her last ileoscopy via her ostomy revealed several AVMs and cauterization was performed on these according to the patient. We do not have her records at this time but she was taken off anticoagulation at that time. She was placed back on Xarelto on this admission due to an acute DVT; however, she developed blood in her ostomy yesterday with an acute drop in her hemoglobin from 11.7 to 9.6 today. Gastroenterology was consulted for further evaluation. She is currently off anticoagulation due to bleeding from her ostomy and has received an IVC placement today and is postop day 0. She had an appointment scheduled with Dr. Simons on 11/29/17, but unfortunately missed it due to her admission at [facility]. She denies any abdominal pain, nausea, vomiting. There has been no melenic output from the ostomy and her bright red blood in her ostomy has resolved since discontinuing anticoagulation. She admits to a good appetite and no recent weight changes. Denies nausea/emesis/hematemesis. PAST MEDICAL HISTORY: Colostomy due to obstruction many years ago, bioprosthetic aortic valve replacement, history of DVT, PE, diabetes mellitus, hypothyroid, CABG in 2010, atrial fibrillation. PAST SURGICAL HISTORY: 1. Bioprosthetic aortic valve replacement. 2. Colostomy. 3. Ileoscopy via colostomy. 4. Cholecystectomy. 5. CABG in 2009. HOSPITAL MEDICATIONS: 1. Albuterol. 2. Xanax. 3. Aspirin 81 mg daily. 4. Lipitor. 5. Keflex. 6. Cardizem. 7. Zetia. 8. Glucotrol. 9. Humalog insulin sliding scale. 10. Synthroid. 11. Toprol-XL. 12. Asmanex. 13. Nystatin. 14. Prilosec. 15. Zofran. 16. Roxicodone. 17. Lyrica. 18. Aldactone. 19. Spiriva. 20. Demadex. 21. Desyrel. ALLERGIES: BEE VENOM, severe rash; SHELLFISH, severe hives; IODINATED CONTRAST , ORAL AND IV INTERMEDIATE, hives; CELECOXIB, hives. SOCIAL HISTORY: She currently lives with her son, Nehemiah. Quit tobacco use many years ago. No alcohol use or illicit drug use. REVIEW OF SYSTEMS: ROS on a 14-pointed have been reviewed. All pertinent positives and negatives have been noted above in the HPI. PHYSICAL EXAM: Vital Signs: Temperature 97.7, pulse 76, respirations 16, is 100% on 2 L of oxygen, blood pressure is 100/58. General: The patient is alert and oriented x3, in no acute distress, well-nourished appearing. HEENT: Normocephalic, atraumatic. Extraocular muscles intact. Anicteric sclerae bilaterally. Neck: Supple. Cardiovascular: Irregular rhythm, regular rate. Pulmonary Exam: Clear to auscultation bilaterally. Abdominal Exam: Obese. Positive bowel sounds. Soft, nontender, nondistended. No rebound, guarding or rigidity. There is a colostomy bag located in the left mid quadrant with brown liquid stool present. Extremities: No clubbing, cyanosis, or edema. Neurological Exam: No gross focal deficits. LABORATORY DATA: Hemoglobin 9.6, hematocrit 31, MCV 79, platelets 188,000, WBC is 8.2. Sodium 138, potassium 3.8, chloride 100, carbon dioxide 34, anion gap 4 , BUN 14, creatinine 0.63, glucose 93. CRP is 60.59. Calcium 8.2. ASSESSMENT AND PLAN: Mercy is a pleasant 67-year-old female with a history of atrial fibrillation, not on anticoagulation due to gastrointestinal bleeding, history of deep venous thrombosis, pulmonary embolism with newly diagnosed deep venous thrombosis on this admission. She was started on Xarelto therapy for her acute DVT but was discontinued due to bright red blood noted in her ostomy bag yesterday. Gastroenterology was consulted for further evaluation of these findings. She is status post IVC filter placement today due to recurrent bleeding from anticoagulation therapy. The patient recently missed her doctor' s appointment with JOHNSON Martinez at [place] on 11/29/17. According to the patient, she has a known history of AVMs which have been cauterized in the distant past by Dr. Simons. Currently, she is anxious and states she would like to have a repeat colonoscopy via the ostomy and see if we may be able to cauterize any more of these blood vessels as to prevent further bleeding and is unsure if she will be able to follow-up soon with her GI at [place]. I suspect she did bleed from her known AVMs while she was on anticoagulation and will likely not bleed as she is off anticoagulation at this time. We can attempt to cautherize the AVM's via APC after a bowel prep but I doubt we will be able to cauterize all of them as they are likely scattered throughout her small bowel and possibly colon. Since she will not be able to follow-up with her GI at [place], we will schedule patient for colonoscopy with APC tomorrow to attempt to cauterize any AVMs that may be visualized. We will maintain the patient on clear liquids and give her a GoLYTELY preparation in order to appropriately assess her ostomy. Her hemoglobin is currently stable. Further recommendations will be provided as the patient's clinical course progresses. Thank you, Dr. Schafer, for allowing us to participate in the care of your patient. If you should have any further questions or concerns, please do not hesitate to contact us. [id number]/CPS #: [id number] SERENA
--- NOTE | 2017-12-06 03:51 | OP ---
CC: Dr. Kajal Simons * DATE OF OPERATION: 12/05/17 - ROOM #338 DATE OF : 50 SURGEON: Nestor Jackson MD SHANK CARRIER: None. ANESTHESIOLOGIST: Dr. Patino. ANESTHESIA: Local MAC. PRE-OP DIAGNOSES: 1. Deep vein thrombosis. 2. Gastrointestinal bleed. POST-OP DIAGNOSES: 1. Deep vein thrombosis. 2. Gastrointestinal bleed. OPERATIVE PROCEDURE: Insertion of inferior vena cava filter. SPECIMEN: None. Argon type Elite vena cava filter placed from the femoral position. This is a retrievable filter. INDICATIONS: Ms. Ziegler is a 67-year-old female known to me with a history of COPD and other issues, who underwent diverting colostomy in the past. The patient's course complicated with incisional hernia. The patient now has more complicated complex course of frequent GI bleeds. She remains a high-risk candidate for any intervention with regards to the colon and is not sure if this would effect GI bleeding. She had undergone special DAQUAN endoscopy with hemostasis through endoscopy suite in [place] in the past with some mixed results but no consistent results. She now is admitted with additional GI bleed and the consideration is for her to go off of anticoagulation. The patient takes this for atrial fibrillation, but now has been diagnosed with a DVT that is traumatic and extensive in the left lower extremity. For this reason, my service is contacted for the purpose of placement of IVC filter. I discussed the case at length with the hospitalist service. The patient was on blood thinners. I made the recommendation of waiting prior to any placement of filter. Filter seemed reasonable for the GI loss issues and the new DVT and I agreed to perform the procedure. I discussed with the patient and her daughter the risks, benefits, and alternatives of the IVC filter placement. I spoke of watchful waiting and accepting the potential of DVT converting into PE. Family wished for this option and does understand that the plan will be for likely holding off of any anticoagulation for the foreseeable future. We discussed the possible complications of hematoma, retroperitoneal, migration of the filter, renal failure, and the need for additional procedure. I discussed I would place a retrievable filter with the likelihood of this not being retrieved. The patient 's questions were answered and consent signed. DESCRIPTION OF PROCEDURE: The patient was taken to the operating suite, placed on the angio table in the supine position. Sequential device was placed on the right lower extremity that did not have the clot burden. Her right groin was clipped of hair and prepped and draped in a standard surgical fashion. A time- out was performed. Injection of lidocaine along the proposed incision site in the groin was carried out. Next, the right common femoral vein was accessed and wire inserted. This was done under fluoroscopy and the wire freely went into the inferior vena cava and beyond. Next, a skin barbara was made over the wire. The subcutaneous tissue was dilated and then the Argon Option Elite retrievable vena filter system was inserted. We placed this over a glidewire that had already been inserted and measured the tip of the catheter system at approximately the second to third lumbar site. We then inserted the filter in appropriate fashion as this was placed at the femoral side and then pushed this up with the appropriate pusher until it was in position and then backed off the sheath. The vena cava filter deployed in appropriate orientation and positioning. It did not show any movement. We then removed the wire along with the rest of the system and applied pressure to the groin for 5 minutes, bandage was applied to the site, images were kept, sent to the Radiology Department. The patient tolerated the procedure well, was woken up and transferred to the PACU in stable condition. This IVC filter removable and should be removed when the concern for PE no longer is significant. This could be done fairly interventional radiology department at [facility], or patient can also be sent to my offices to arrange this. [id number]/CPS #: [id number] SERENA
[2017-12-06] MEDS: Levothyroxine TAB* 150 MCG TAB PO SCH (05:10)
[2017-12-06 07:37] LABS: Hematocrit 33 % (35-47); Hemoglobin 10.3 g/dl (12.0-16.0); Mean Corpuscular HGB Conc 31 g/dl (31-36); Mean Corpuscular Hemoglobin 25 pg (27-31); Mean Corpuscular Volume 79 fL (80-97); Mean Platelet Volume 8.6 um3 (7.4-10.4); Platelet Count 201 10^3/ul (150-450); Red Blood Count 4.19 10^6/ul (4.00-5.40); Red Cell Distribution Width 19 % (10.5-15); White Blood Count 7.7 10^3/ul (3.5-10.8)
[2017-12-06] MEDS: Insulin LISPRO* 1 UNITS UNIT SUBCUT SCH ×4 (08:24→21:29)
[2017-12-06] MEDS: Torsemide TAB* 20 MG PO SCH (10:06)
[2017-12-06] MEDS: Tiotropium CAP.INH* CAP.INH/18 MCG (USE ORDER SET !) INH SCH (10:06)
[2017-12-06] MEDS: Diltiazem CD CAP* 120 MG PO SCH (10:06)
[2017-12-06] MEDS: Ezetimibe TAB* 10 MG PO SCH (10:06)
[2017-12-06] MEDS: Cephalexin CAP* 500 MG PO SCH ×4 (10:11→21:19)
[2017-12-06] MEDS: glipiZIDE TAB* 5 MG PO SCH (10:11)
[2017-12-06] MEDS: Atorvastatin* 80 MG TAB PO SCH (10:11)
[2017-12-06] MEDS: oxyCODONE TAB* 5 MG TAB PO PRN ×2 (10:12→18:43)
[2017-12-06] MEDS: Omeprazole CAP* 20 MG PO SCH (10:13)
[2017-12-06] MEDS: Nystatin TOP POWDER* 15 GM BTL TOPICAL SCH ×3 (10:13→21:29)
[2017-12-06] MEDS: Spironolactone TAB* 25 MG PO SCH (10:13)
[2017-12-06] MEDS: Metoprolol Succinate XL TAB* 25 MG PO SCH (10:13)
[2017-12-06] MEDS: Aspirin EC TAB* 81 MG TAB.EC PO SCH (10:13)
--- NOTE | 2017-12-06 14:52 | PN ---
Subjective Date of Service: 12/06/17 Interval History: Pt is feeling ok. She is hungry and wants to eat (she is waiting for her scope) . She continues to have the same amount of pain in her L leg. No R groin pain. Objective Active Medications: Albuterol (Ventolin Hfa Inhaler*) 2 puff INH Q4H PRN PRN Reason: SOB/WHEEZING Aspirin (Aspirin Ec Tab*) 81 mg PO DAILY [facility] Last Admin: 12/06/17 10:13 Dose: 81 mg Atorvastatin Calcium (Lipitor*) 80 mg PO DAILY [facility] Last Admin: 12/06/17 10:11 Dose: 80 mg Cephalexin HCl (Keflex Cap*) 500 mg PO QID [facility] Last Admin: 12/06/17 10:11 Dose: 500 mg Dextrose (D50w Syringe 50 Ml*) 12.5 gm IV PUSH .FOR FS < 60 - SS PRN PRN Reason: FS < 60 Digoxin (Lanoxin Tab*) 0.125 mg PO 1700 [facility] Diltiazem HCl (Cardizem Cd Cap*) 120 mg PO DAILY [facility] Last Admin: 12/06/17 10:06 Dose: 120 mg Ezetimibe (Zetia Tab*) 10 mg PO DAILY [facility] Last Admin: 12/06/17 10:06 Dose: 10 mg Glipizide (Glucotrol Tab*) 2.5 mg PO DAILY [facility] Last Admin: 12/06/17 10:11 Dose: Not Given Insulin Human Lispro (Humalog*) 0 units SUBCUT ACHS [facility]; Protocol Last Admin: 12/06/17 12:23 Dose: Not Given Levothyroxine Sodium (Synthroid Tab*) 150 mcg PO DAILY@0600 [facility] Last Admin: 12/06/17 05:10 Dose: Not Given Metoprolol Succinate (Toprol Xl Tab*) 75 mg PO DAILY [facility] Last Admin: 12/06/17 10:13 Dose: 75 mg Mometasone Furoate (Asmanex 220 Mcg Mdi *) 2 puff INH BEDTIME [facility] Last Admin: 12/05/17 20:24 Dose: 2 puff Nystatin (Nystatin Top Powder*) 1 applic TOPICAL TID [facility] Last Admin: 12/06/17 10:13 Dose: Not Given Omeprazole (Prilosec Cap*) 40 mg PO DAILY [facility] Last Admin: 12/06/17 10:13 Dose: 40 mg Ondansetron HCl (Zofran Inj*) 4 mg IV Q6H PRN PRN Reason: NAUSEA/VOMITING Last Admin: 11/30/17 20:15 Dose: 4 mg Ondansetron HCl (Zofran Odt Tab*) 4 mg SL Q6H PRN PRN Reason: NAUSEA/VOMITING Oxycodone HCl (Roxycodone Tab*) 10 mg PO Q4H PRN PRN Reason: SEVERE PAIN Last Admin: 12/05/17 20:41 Dose: 10 mg Pregabalin (Lyrica Cap(*)) 50 mg PO BEDTIME [facility] Last Admin: 12/05/17 20:22 Dose: 50 mg Spironolactone (Aldactone Tab*) 25 mg PO DAILY [facility] Last Admin: 12/06/17 10:13 Dose: 25 mg Tiotropium [place] (Spiriva Cap.Inh*) 1 cap INH DAILY [facility] Last Admin: 12/06/17 10:06 Dose: 1 cap Torsemide (Demadex*) 20 mg PO DAILY [facility] Last Admin: 12/06/17 10:06 Dose: 20 mg Trazodone HCl (Desyrel Tab*) 100 mg PO BEDTIME [facility] Last Admin: 12/05/17 20:21 Dose: 100 mg Vital Signs - 8 hr 12/06/17 12/06/17 12/06/17 07:24 08:00 10:09 Temperature 97.8 F Pulse Rate 112 75 Respiratory 18 16 Rate Blood Pressure 91/66 111/70 (mmHg) O2 Sat by Pulse 94 98 Oximetry 12/06/17 12/06/17 12/06/17 10:12 11:11 12:24 Temperature Pulse Rate 99 Respiratory 16 18 18 Rate Blood Pressure 104/71 (mmHg) O2 Sat by Pulse 100 Oximetry Oxygen Devices in Use Now: None Appearance: Middle aged female sitting up in a chair, NAD Eyes: No Scleral Icterus Ears/Nose/Mouth/Throat: Mucous Membranes Moist Respiratory: Symmetrical Chest Expansion and Respiratory Effort, Clear to Auscultation Cardiovascular: NL Sounds; No Murmurs; No JVD, No Edema, - - irregularly, irregular Abdominal: NL Sounds; No Tenderness; No Distention Extremities: No Clubbing, Cyanosis Skin: No Nodules or Sclerosis Neurological: Alert and Oriented x 3 Result Diagrams: 12/06/17 06:53 12/05/17 08:20 Microbiology and Other Data: Microbiology 11/30/17 06:32 Urine Culture - Final Urine No Growth (<1,000 CFU/mL) Assess/Plan/Problems-Billing Ms Ziegler is a 67 yo F who has a h/o COPD with chronic hypoxic respiratory failure requiring 2L O2 continuously, afib, CAD, HTN, diastolic CHF, RYAN and previous DVT/PE who presented to the ER with c/o L LE pain and was found to have an extensive DVT. - Patient Problems (1) Lower GI bleed Current Visit: Yes Status: Acute Code(s): K92.2 - GASTROINTESTINAL HEMORRHAGE, UNSPECIFIED SNOMED Code(s): 00403086 Comment: Plan for colonoscopy today. H/H improved today. (2) Left leg DVT Current Visit: Yes Status: Acute Code(s): I82.402 - ACUTE EMBOLISM AND THOMBOS UNSP DEEP VEINS OF L LOW EXTREM SNOMED Code(s): 914914061 Comment: IVC filter placed today. Resume SQ heparin tonight. (3) Cellulitis Current Visit: Yes Status: Acute Code(s): L03.90 - CELLULITIS, UNSPECIFIED SNOMED Code(s): 238712944 Comment: No erythema noted by myself to the L thigh. Follow up CBC and CRP today. Today is D#6/7. (4) Atrial fibrillation Current Visit: Yes Status: Acute Code(s): I48.91 - UNSPECIFIED ATRIAL FIBRILLATION SNOMED Code(s): 15244575 Comment: The patient remains in afib. Resume digoxin but reduced dose secondary to elevated dig level on admission. Continue metoprolol and diltiazem. (5) COPD (chronic obstructive pulmonary disease) Current Visit: Yes Status: Acute Code(s): J44.9 - CHRONIC OBSTRUCTIVE PULMONARY DISEASE, UNSPECIFIED SNOMED Code(s): 61202562 Comment: No signs of exacerbation. Conitnue current medication regimen. (6) DM2 (diabetes mellitus, type 2) Current Visit: Yes Status: Chronic Comment: Last A1c 7.0% in 10/2017. Continue glipizide, metformin currently being held. (7) Diastolic CHF Current Visit: Yes Status: Chronic Code(s): I50.30 - UNSPECIFIED DIASTOLIC ( CONGESTIVE) HEART FAILURE SNOMED Code(s): 224092428 Comment: Currently euvolemic. Monitor fluid status. (8) HTN (hypertension) Current Visit: Yes Status: Chronic Code(s): I10 - ESSENTIAL (PRIMARY) HYPERTENSION SNOMED Code(s): 17465898 Comment: BP is under very good control. Monitor on current meds/doses. (9) Depression Current Visit: Yes Status: Chronic Code(s): F32.9 - MAJOR DEPRESSIVE DISORDER, SINGLE EPISODE, UNSPECIFIED SNOMED Code(s): 13612770 Comment: Continue trazodone, xanax and zoloft. (10) HLD (hyperlipidemia) Current Visit: Yes Status: Chronic Code(s): E78.5 - HYPERLIPIDEMIA, UNSPECIFIED SNOMED Code(s): 87016312 Comment: Continue lipitor. (11) Hypothyroidism (acquired) Current Visit: Yes Status: Chronic Code(s): E03.9 - HYPOTHYROIDISM, UNSPECIFIED SNOMED Code(s): 810737328 Comment: TSH low at 0.27. Continue synthroid 150mcg daily. (12) GERD (gastroesophageal reflux disease) Current Visit: Yes Status: Chronic Code(s): K21.9 - GASTRO-ESOPHAGEAL REFLUX DISEASE WITHOUT ESOPHAGITIS SNOMED Code(s): 378201355 Comment: Continue omeprazole. (13) DVT prophylaxis Current Visit: Yes Status: Acute Code(s): VHD3881 - SNOMED Code(s): 092626121 Comment: SQ heparin-resume tonight. (14) Full code status Current Visit: Yes Status: Acute Code(s): Z78.9 - OTHER SPECIFIED HEALTH STATUS SNOMED Code(s): 667095779
[2017-12-06] MEDS ORDERED: Midazolam* 1 MG/ML 10 ML VIAL (10 MG) ONE (15:25)
[2017-12-06] MEDS ORDERED: fentaNYL* 50 MCG/ML 2 ML VIAL (100 MCG VIAL) ONE (15:25)
[2017-12-06] MEDS: Digoxin TAB* 0.125 MG PO SCH (18:22)
[2017-12-06] MEDS: metroNIDAZOLE TAB* 250 MG PO SCH (21:18)
[2017-12-06] MEDS: traZODone TAB* 50 MG TAB PO SCH (21:19)
[2017-12-06] MEDS: Pregabalin CAP(*) 50 MG PO SCH (21:19)
[2017-12-06] MEDS: Mometasone 220 MCG MDI INH SCH (21:21)
[2017-12-06] MEDS: Heparin VIAL(*) 5000 UNITS/ML VIAL (FIVE THOUSAND) SUBCUT SCH (21:23)
[2017-12-07] MEDS: metroNIDAZOLE TAB* 250 MG PO SCH ×4 (00:09→22:50)
[2017-12-07] MEDS: Levothyroxine TAB* 150 MCG TAB PO SCH (05:45)
[2017-12-07] MEDS: Heparin VIAL(*) 5000 UNITS/ML VIAL (FIVE THOUSAND) SUBCUT SCH ×3 (05:46→22:50)
[2017-12-07] MEDS: Tiotropium CAP.INH* CAP.INH/18 MCG (USE ORDER SET !) INH SCH (08:02)
[2017-12-07] MEDS: glipiZIDE TAB* 5 MG PO SCH (08:13)
[2017-12-07] MEDS: Torsemide TAB* 20 MG PO SCH (08:13)
[2017-12-07] MEDS: Omeprazole CAP* 20 MG PO SCH (08:13)
[2017-12-07] MEDS: Aspirin EC TAB* 81 MG TAB.EC PO SCH (08:14)
[2017-12-07] MEDS: Spironolactone TAB* 25 MG PO SCH (08:14)
[2017-12-07] MEDS: Insulin LISPRO* 1 UNITS UNIT SUBCUT SCH ×4 (08:14→23:08)
[2017-12-07] MEDS: Cephalexin CAP* 500 MG PO SCH ×4 (08:14→22:49)
[2017-12-07] MEDS: Ezetimibe TAB* 10 MG PO SCH (08:14)
[2017-12-07] MEDS: Diltiazem CD CAP* 120 MG PO SCH (08:14)
[2017-12-07] MEDS: oxyCODONE TAB* 5 MG TAB PO PRN ×2 (08:14→19:50)
[2017-12-07] MEDS: Atorvastatin* 80 MG TAB PO SCH (08:14)
[2017-12-07] MEDS: Nystatin TOP POWDER* 15 GM BTL TOPICAL SCH ×3 (08:15→22:59)
[2017-12-07] MEDS: Metoprolol Succinate XL TAB* 25 MG PO SCH (08:20)
--- NOTE | 2017-12-07 10:45 | PRO ---
DATE: 12/06/17 - ENDO REFERRING PHYSICIAN: Kajal Simons* PROCEDURE: Colonoscopy via stoma and transverse colon to the cecum and to sigmoid colon. INDICATION: This 67-year-old woman was found to have a DVT apparently a recurrence or relapse and was admitted and yesterday had a vena cava filter. The indication was bleeding from her transverse stoma when given Xarelto. She has had bleeding from that with multiple episodes of being put on anticoagulants chiefly for atrial fibrillation. Her Hg yesterday was 9.6 and today 10.3, not significantly different from 25 to 30 values generated since 07/27/17 She did have hemoglobin values in the 12's during July of 2017. She had a transverse loop colostomy placed by Dr. Jackson in April of 2015. She states she has had no subsequent surgery. She had a colonoscopy via the stoma at [place] 08/24/[address] Foote. Right colonic AVMs were BICAP'ed, though they were said to be nonbleeding and their visual risk assessment was not further commented on. The rest of her colon did not have any pathology other than diverticulosis. She states that she is not passing any material out her rectum currently. She had a colonoscopy in 2017 in the [facility] and those records are not available. ENDOSCOPIST: Dr. Huerta. MEDICATIONS: Midazolam 3, fentanyl 50. FINDINGS: She is a substantially overweight, chronically ill-appearing woman with a sallow complexion. Her stoma had thin yellowish mucoid material coming out. Initial views under the right colon and some mild erythema and edema was noted and there was a spattering of white exudate nonspecific but possibly consistent with C. diff. She was therefore placed on precautions. A specimen was sent. The cecum was reached. The cecum, ileocecal valve, and 20 cm of terminal ileum were normal. In the right colon there were a few very tiny aberrant blood vessels consistent with a malformation, but they were not very turgid or appearing to have significant risk. No polyps were seen. Three biopsies were taken directly towards exudative areas. The scope was withdrawn and passed down the other limb. The mucosa appeared intact without exudate. It shared the same stoma where there have been freely refluxing material. During withdrawal it was evident that there was a typical friability consistent with bypass colopathy. Some diverticula had been seen in the estimated descending or proximal sigmoid. IMPRESSION: 1. Minimal AVMs, proximal right colon. 2. Diffuse polka dot exudate, right colon - C. diff being ruled out. Addendum: + for C Diff 3. Sigmoid diverticulosis. 4. Bypass colopathy. 5. Bleeding from the stoma - inspecting the stoma pre and post procedure, no particular pathology was seen and there was no blood. Possibly a colorectal surgeon could expect this at or shortly following the time when she is complaining of bleeding. There is no obvious reversible lesion to inspection today. Of note, her [facility] consult of 08/18/17 and the colonoscopy of 08/24/17 are listed under "other facility information" entries of 09/09/17 and 08/27/17 respectively, pages 38 to 41 and 11 to 13 respectively. [id number]/CPS #: [id number] MTDD
--- NOTE | 2017-12-07 10:56 | PN ---
Subjective Date of Service: 12/07/17 Interval History: No overnight events. She still notes some scant blood in her ostomy, but it is improving. She complains of pain in her left leg. No diarrhea, abdominal pain , nausea, vomiting, shortness of breath, orthopnea. Family History: Findings - Both mother and brother had heart disease. Social History: Findings - Lives with her son Nehemiah who is her SDM. Quit smoking many yrs ago. No alcohol abuse. Past Medical History: Findings - Colostomy for obstruction many yrs ago. AVR bioprosthetic. 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 CABG 2009, DM, hypothyroid, cholecystectomy, atrial fib on warfarin until her GI bleed Objective Active Medications: Albuterol (Ventolin Hfa Inhaler*) 2 puff INH Q4H PRN PRN Reason: SOB/WHEEZING Aspirin (Aspirin Ec Tab*) 81 mg PO DAILY [facility] Last Admin: 12/07/17 08:14 Dose: 81 mg Atorvastatin Calcium (Lipitor*) 80 mg PO DAILY [facility] Last Admin: 12/07/17 08:14 Dose: 80 mg Cephalexin HCl (Keflex Cap*) 500 mg PO QID [facility] Last Admin: 12/07/17 08:14 Dose: 500 mg Dextrose (D50w Syringe 50 Ml*) 12.5 gm IV PUSH .FOR FS < 60 - SS PRN PRN Reason: FS < 60 Digoxin (Lanoxin Tab*) 0.125 mg PO 1700 [facility] Last Admin: 12/06/17 18:22 Dose: 0.125 mg Diltiazem HCl (Cardizem Cd Cap*) 120 mg PO DAILY [facility] Last Admin: 12/07/17 08:14 Dose: 120 mg Ezetimibe (Zetia Tab*) 10 mg PO DAILY [facility] Last Admin: 12/07/17 08:14 Dose: 10 mg Glipizide (Glucotrol Tab*) 2.5 mg PO DAILY [facility] Last Admin: 12/07/17 08:13 Dose: 2.5 mg Heparin Sodium (Porcine) (Heparin Vial(*)) 5,000 units SUBCUT Q8HR [facility] Last Admin: 12/07/17 05:46 Dose: 5,000 units Insulin Human Lispro (Humalog*) 0 units SUBCUT ACHS [facility]; Protocol Last Admin: 12/07/17 08:14 Dose: Not Given Levothyroxine Sodium (Synthroid Tab*) 150 mcg PO DAILY@0600 [facility] Last Admin: 12/07/17 05:45 Dose: 150 mcg Metoprolol Succinate (Toprol Xl Tab*) 75 mg PO DAILY [facility] Last Admin: 12/07/17 08:20 Dose: 75 mg Metronidazole (Flagyl Tab*) 500 mg PO TID [facility] Last Admin: 12/07/17 08:14 Dose: 500 mg Mometasone Furoate (Asmanex 220 Mcg Mdi *) 2 puff INH BEDTIME [facility] Last Admin: 12/06/17 21:21 Dose: 2 puff Nystatin (Nystatin Top Powder*) 1 applic TOPICAL TID [facility] Last Admin: 12/07/17 08:15 Dose: Not Given Omeprazole (Prilosec Cap*) 40 mg PO DAILY [facility] Last Admin: 12/07/17 08:13 Dose: 40 mg Ondansetron HCl (Zofran Inj*) 4 mg IV Q6H PRN PRN Reason: NAUSEA/VOMITING Last Admin: 11/30/17 20:15 Dose: 4 mg Ondansetron HCl (Zofran Odt Tab*) 4 mg SL Q6H PRN PRN Reason: NAUSEA/VOMITING Oxycodone HCl (Roxycodone Tab*) 10 mg PO Q4H PRN PRN Reason: PAIN Last Admin: 12/07/17 08:14 Dose: 10 mg Pregabalin (Lyrica Cap(*)) 50 mg PO BEDTIME [facility] Last Admin: 12/06/17 21:19 Dose: 50 mg Spironolactone (Aldactone Tab*) 25 mg PO DAILY [facility] Last Admin: 12/07/17 08:14 Dose: 25 mg Tiotropium [place] (Spiriva Cap.Inh*) 1 cap INH DAILY [facility] Last Admin: 12/07/17 08:02 Dose: 1 cap Torsemide (Demadex*) 20 mg PO DAILY [facility] Last Admin: 12/07/17 08:13 Dose: 20 mg Trazodone HCl (Desyrel Tab*) 100 mg PO BEDTIME [facility] Last Admin: 12/06/17 21:19 Dose: 100 mg Vital Signs - 8 hr 12/07/17 12/07/17 12/07/17 06:35 08:02 08:14 Temperature 97.5 F Pulse Rate 92 68 Respiratory 17 18 18 Rate Blood Pressure 132/63 (mmHg) O2 Sat by Pulse 100 100 Oximetry 12/07/17 10:12 Temperature Pulse Rate Respiratory 16 Rate Blood Pressure (mmHg) O2 Sat by Pulse Oximetry Oxygen Devices in Use Now: None Appearance: alert, sitting up in the chair, no distress Eyes: No Scleral Icterus Ears/Nose/Mouth/Throat: NL Teeth, Lips, Gums Neck: NL Appearance and Movements; NL JVP Respiratory: Symmetrical Chest Expansion and Respiratory Effort, Clear to Auscultation Cardiovascular: NL Sounds; No Murmurs; No JVD, - - irregular rhythm Abdominal: NL Sounds; No Tenderness; No Distention, - - ostomy with scant blood Lymphatic: No Cervical Adenopathy Extremities: No Edema Skin: No Rash or Ulcers Neurological: Alert and Oriented x 3 Result Diagrams: 12/06/17 06:53 12/05/17 08:20 Microbiology and Other Data: Microbiology 11/30/17 06:32 Urine Culture - Final Urine No Growth (<1,000 CFU/mL) Assess/Plan/Problems-Billing Ms Ziegler is a 67 yo F who has a h/o COPD with chronic hypoxic respiratory failure requiring 2L O2 continuously, afib, CAD, HTN, diastolic CHF, RYAN and previous DVT/PE who presented to the ER with c/o L LE pain and was found to have an extensive DVT. - Patient Problems (1) Left leg DVT Current Visit: Yes Status: Acute Code(s): I82.402 - ACUTE EMBOLISM AND THOMBOS UNSP DEEP VEINS OF L LOW EXTREM SNOMED Code(s): 135119069 Comment: IVC filter placed yesterday since she has failed therapeutic anticoagulation multiple times (has been attempted in the past for afib with elevated CHADSVasc score). Continue DVT ppx (2) Atrial fibrillation Current Visit: Yes Status: Acute Code(s): I48.91 - UNSPECIFIED ATRIAL FIBRILLATION SNOMED Code(s): 05319651 Comment: The patient remains in afib. Resume digoxin but reduced dose secondary to elevated dig level on admission. Continue metoprolol and diltiazem. (3) COPD (chronic obstructive pulmonary disease) Current Visit: Yes Status: Acute Code(s): J44.9 - CHRONIC OBSTRUCTIVE PULMONARY DISEASE, UNSPECIFIED SNOMED Code(s): 74165520 Comment: No signs of exacerbation. Conitnue current medication regimen. (4) Lower GI bleed Current Visit: Yes Status: Acute Code(s): K92.2 - GASTROINTESTINAL HEMORRHAGE, UNSPECIFIED SNOMED Code(s): 55556586 Comment: Colonoscopy done yesterday, awaiting report Hgb stable from yesterday (5) DM2 (diabetes mellitus, type 2) Current Visit: Yes Status: Chronic Comment: Last A1c 7.0% in 10/2017. Continue glipizide, metformin currently being held. (6) Diastolic CHF Current Visit: Yes Status: Chronic Code(s): I50.30 - UNSPECIFIED DIASTOLIC ( CONGESTIVE) HEART FAILURE SNOMED Code(s): 231384709 Comment: Currently euvolemic. Monitor fluid status.
[2017-12-07] MEDS: Digoxin TAB* 0.125 MG PO SCH (16:56)
--- NOTE | 2017-12-07 20:32 | PN ---
Progress Note - Progress Note Date of Service: 12/07/17 - Gastroenterology Note: Patient seen and examined this morning. No new overnight events. No abdominal pain. No nausea/emesis. Tolerating diet. No bleeding from ostomy site. Vital Signs: Temp Pulse Resp BP Pulse Ox 98.2 F 48 16 81/50 100 12/07/17 19:49 12/07/17 19:49 12/07/17 19:50 12/07/17 19:49 12/07/17 19:49 Physical Exam: General: AAOx3. CV: RRR. PULM: CTAB ABDOMEN: Soft, non-tender, non-distended. Liquid brown stool in ostomy. Laboratory Last Values WBC 7.7 10^3/ul (3.5-10.8) 12/06/17 06:53 RBC 4.19 10^6/ul (4.00-5.40) 12/06/17 06:53 Hgb 10.3 g/dl (12.0-16.0) L 12/06/17 06:53 Hct 33 % (35-47) L 12/06/17 06:53 MCV 79 fL (80-97) L 12/06/17 06:53 MCH 25 pg (27-31) L 12/06/17 06:53 MCHC 31 g/dl (31-36) 12/06/17 06:53 RDW 19 % (10.5-15) H 12/06/17 06:53 Plt Count 201 10^3/ul (150-450) 12/06/17 06:53 MPV 8.6 um3 (7.4-10.4) 12/06/17 06:53 Neut % (Auto) 63.0 % (38-83) 12/01/17 05:57 Lymph % (Auto) 24.6 % (25-47) L 12/01/17 05:57 Casey % (Auto) 9.8 % (0-7) H 12/01/17 05:57 Eos % (Auto) 1.9 % (0-6) 12/01/17 05:57 Baso % (Auto) 0.7 % (0-2) 12/01/17 05:57 Absolute Neuts (auto) 7.5 10^3/ul (1.5-7.7) 12/01/17 05:57 Absolute Lymphs (auto) 2.9 10^3/ul (1.0-4.8) 12/01/17 05:57 Absolute Monos (auto) 1.2 10^3/ul (0-0.8) H 12/01/17 05:57 Absolute Eos (auto) 0.2 10^3/ul (0-0.6) 12/01/17 05:57 Absolute Basos (auto) 0.1 10^3/ul (0-0.2) 12/01/17 05:57 Absolute Nucleated RBC 0 10^3/ul 12/01/17 05:57 Nucleated RBC % 0 12/01/17 05:57 Sodium 138 mmol/L (135-145) 12/05/17 08:20 Potassium 3.8 mmol/L (3.5-5.0) 12/05/17 08:20 Chloride 100 mmol/L (101-111) L 12/05/17 08:20 Carbon Dioxide 34 mmol/L (22-32) H 12/05/17 08:20 Anion Gap 4 mmol/L (2-11) 12/05/17 08:20 BUN 14 mg/dL (6-24) 12/05/17 08:20 Creatinine 0.63 mg/dL (0.51-0.95) 12/05/17 08:20 Est GFR ( Amer) 114.1 (>60) 12/05/17 08:20 Est GFR (Non-Af Amer) 94.3 (>60) 12/05/17 08:20 BUN/Creatinine Ratio 22.2 (8-20) H 12/05/17 08:20 Glucose 93 mg/dL (70-100) 12/05/17 08:20 POC Glucose (mg/dL) 125 mg/dL (70-100) H 12/07/17 16:20 Calcium 8.2 mg/dL (8.6-10.3) L 12/05/17 08:20 Total Bilirubin 1.20 mg/dL (0.2-1.0) H 11/29/17 11:22 AST 12 U/L (13-39) L 11/29/17 11:22 ALT 9 U/L (7-52) 11/29/17 11:22 Alkaline Phosphatase 73 U/L (34-104) 11/29/17 11:22 C-Reactive Protein 60.59 mg/L (<8.01) H 12/05/17 08:20 Total Protein 7.0 g/dL (6.4-8.9) 11/29/17 11:22 Albumin 3.1 g/dL (3.2-5.2) L 11/29/17 11: Globulin 3.9 g/dL (2-4) 11/29/17 11: Albumin/Globulin Ratio 0.8 (1-3) L 11/29/17 11:22 TSH 0.27 mcIU/mL (0.34-5.60) L 11/29/17 11:22 Urine Color Tabby 11/30/17 06:29 Urine Appearance Cloudy 11/30/17 06:29 Urine pH 6.0 (5-9) 11/30/17 06:29 Ur Specific [place] 1.030 (1.010-1.030) 11/30/17 06:29 Urine Protein 1+(30 mg/dl) (Negative) A 11/30/17 06:29 Urine Ketones Negative (Negative) 11/30/17 06:29 Urine Blood 1+ (Negative) A 11/30/17 06:29 Urine Nitrate Negative (Negative) 11/30/17 06: Urine Bilirubin Negative (Negative) 11/30/17 06:29 Urine Urobilinogen Negative (Negative) 11/30/17 06:29 Ur Leukocyte Esterase Trace (Negative) A 11/30/17 06:29 Urine WBC (Auto) 2+(11-20/hpf) (Absent) A 11/30/17 06:29 Urine RBC (Auto) 2+(6-10/hpf) (Absent) A 11/30/17 06:29 Ur Squamous Epith Cells Present (Absent) A 11/30/17 06:29 Urine Bacteria Absent (Absent) 11/30/17 06:29 Hyaline Casts Present (Absent) A 11/30/17 06: Urine Glucose Negative (Negative) 11/30/17 06:29 Digoxin 0.8 ng/ml (0.8-2.0) 12/03/17 11:11 67 yo female with hx of DVT/PE, A.fib (off anticoagulation), hx of GI bleeding while on anticoagulation, hx of large bowel obstruction s/p colostomy presented with a large lower extremity DVT. She was started on Xarelto but had recurrence of bleeding from her ostomy. Xarelto was subsequently held and an IVC filter was placement 2 days ago. Colonoscopy via ostomy yesterday revealed pseudomembranous colitis with stool studies positive for C.diff. She was started on Flagyl. Hgb is stable. No further bleeding while off Xarelto. 1. Bleeding from ostomy - resolved while off Xarelto ~Colonoscopy via ostomy revealed pseudomembranous colitis. Bx pending. ~Stool studies positive for C.diff. ~Will follow-up with Dr. Simons (GI at [facility]) after discharge. ~Hgb stable and no further bleeding while off anticoagulation. 2. C.diff Colitis ~On Flagyl. 3. DVT ~S/p IVF filter placement ~Off Xarelto. Please call back with any further issues or concerns. Evonne Olmedo D.O.
[2017-12-07] MEDS: Mometasone 220 MCG MDI INH SCH (21:44)
[2017-12-07] MEDS: Pregabalin CAP(*) 50 MG PO SCH (22:49)
[2017-12-07] MEDS: traZODone TAB* 50 MG TAB PO SCH (22:50)
[2017-12-08] MEDS: oxyCODONE TAB* 5 MG TAB PO PRN ×3 (00:21→13:41)
[2017-12-08] MEDS: Heparin VIAL(*) 5000 UNITS/ML VIAL (FIVE THOUSAND) SUBCUT SCH ×3 (06:33→21:28)
[2017-12-08] MEDS: Levothyroxine TAB* 150 MCG TAB PO SCH (06:34)
[2017-12-08] MEDS: glipiZIDE TAB* 5 MG PO SCH (08:26)
[2017-12-08] MEDS: Tiotropium CAP.INH* CAP.INH/18 MCG (USE ORDER SET !) INH SCH (08:26)
[2017-12-08] MEDS: Omeprazole CAP* 20 MG PO SCH (08:26)
[2017-12-08] MEDS: metroNIDAZOLE TAB* 250 MG PO SCH ×2 (08:27→14:06)
[2017-12-08] MEDS: Atorvastatin* 80 MG TAB PO SCH (08:27)
[2017-12-08] MEDS: Metoprolol Succinate XL TAB* 25 MG PO SCH (08:27)
[2017-12-08] MEDS: Aspirin EC TAB* 81 MG TAB.EC PO SCH (08:27)
[2017-12-08] MEDS: Spironolactone TAB* 25 MG PO SCH (08:27)
[2017-12-08] MEDS: Ezetimibe TAB* 10 MG PO SCH (08:27)
[2017-12-08] MEDS: Torsemide TAB* 20 MG PO SCH (08:27)
[2017-12-08] MEDS: Diltiazem CD CAP* 120 MG PO SCH (08:28)
[2017-12-08] MEDS: Nystatin TOP POWDER* 15 GM BTL TOPICAL SCH ×3 (08:28→21:28)
[2017-12-08] MEDS: Cephalexin CAP* 500 MG PO SCH ×4 (08:28→20:45)
[2017-12-08] MEDS: Insulin LISPRO* 1 UNITS UNIT SUBCUT SCH ×4 (08:28→22:48)
--- NOTE | 2017-12-08 13:00 | PN ---
Subjective Date of Service: 12/08/17 Interval History: Complains of pain in her left leg, worse than yesterday. Oxycodone is helping but not relieving the pain. No shortness of breath, chest pain, melena, or hematochezia. Family History: Findings - Both mother and brother had heart disease. Social History: Findings - Lives with her son Nehemiah who is her SDM. Quit smoking many yrs ago. No alcohol abuse. Past Medical History: Findings - Colostomy for obstruction many yrs ago. AVR bioprosthetic. 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 CABG 2009, DM, hypothyroid, cholecystectomy, atrial fib on warfarin until her GI bleed Objective Active Medications: Albuterol (Ventolin Hfa Inhaler*) 2 puff INH Q4H PRN PRN Reason: SOB/WHEEZING Aspirin (Aspirin Ec Tab*) 81 mg PO DAILY [facility] Last Admin: 12/08/17 08:27 Dose: 81 mg Atorvastatin Calcium (Lipitor*) 80 mg PO DAILY [facility] Last Admin: 12/08/17 08:27 Dose: 80 mg Cephalexin HCl (Keflex Cap*) 500 mg PO QID [facility] Last Admin: 12/08/17 08:28 Dose: 500 mg Dextrose (D50w Syringe 50 Ml*) 12.5 gm IV PUSH .FOR FS < 60 - SS PRN PRN Reason: FS < 60 Digoxin (Lanoxin Tab*) 0.125 mg PO 1700 [facility] Last Admin: 12/07/17 16:56 Dose: 0.125 mg Diltiazem HCl (Cardizem Cd Cap*) 120 mg PO DAILY [facility] Ezetimibe (Zetia Tab*) 10 mg PO DAILY [facility] Last Admin: 12/08/17 08:27 Dose: 10 mg Glipizide (Glucotrol Tab*) 2.5 mg PO DAILY [facility] Last Admin: 12/08/17 08:26 Dose: 2.5 mg Heparin Sodium (Porcine) (Heparin Vial(*)) 5,000 units SUBCUT Q8HR [facility] Last Admin: 12/08/17 06:33 Dose: 5,000 units Insulin Human Lispro (Humalog*) 0 units SUBCUT ACHS [facility]; Protocol Last Admin: 12/08/17 08:28 Dose: Not Given Levothyroxine Sodium (Synthroid Tab*) 150 mcg PO DAILY@0600 [facility] Last Admin: 12/08/17 06:34 Dose: 150 mcg Metoprolol Succinate (Toprol Xl Tab*) 75 mg PO DAILY [facility] Last Admin: 12/08/17 08:27 Dose: 75 mg Metronidazole (Flagyl Tab*) 500 mg PO TID [facility] Last Admin: 12/08/17 08:27 Dose: 500 mg Mometasone Furoate (Asmanex 220 Mcg Mdi *) 2 puff INH BEDTIME [facility] Last Admin: 12/07/17 21:44 Dose: 2 puff Nystatin (Nystatin Top Powder*) 1 applic TOPICAL TID [facility] Last Admin: 12/08/17 08:28 Dose: Not Given Omeprazole (Prilosec Cap*) 40 mg PO DAILY [facility] Last Admin: 12/08/17 08:26 Dose: 40 mg Ondansetron HCl (Zofran Inj*) 4 mg IV Q6H PRN PRN Reason: NAUSEA/VOMITING Last Admin: 11/30/17 20:15 Dose: 4 mg Ondansetron HCl (Zofran Odt Tab*) 4 mg SL Q6H PRN PRN Reason: NAUSEA/VOMITING Oxycodone HCl (Roxycodone Tab*) 10 mg PO Q4H PRN PRN Reason: PAIN Last Admin: 12/08/17 08:27 Dose: 10 mg Pregabalin (Lyrica Cap(*)) 50 mg PO BEDTIME [facility] Last Admin: 12/07/17 22:49 Dose: 50 mg Spironolactone (Aldactone Tab*) 25 mg PO DAILY [facility] Last Admin: 12/08/17 08:27 Dose: 25 mg Tiotropium [place] (Spiriva Cap.Inh*) 1 cap INH DAILY [facility] Last Admin: 12/08/17 08:26 Dose: 1 cap Torsemide (Demadex*) 20 mg PO DAILY [facility] Last Admin: 12/08/17 08:27 Dose: 20 mg Trazodone HCl (Desyrel Tab*) 100 mg PO BEDTIME [facility] Last Admin: 12/07/17 22:50 Dose: 100 mg Vital Signs - 8 hr 12/08/17 12/08/17 12/08/17 07:42 08:27 08:28 Temperature 98.1 F Pulse Rate 67 Respiratory 16 16 14 Rate Blood Pressure 100/57 (mmHg) O2 Sat by Pulse 100 Oximetry 12/08/17 12/08/17 10:37 11:20 Temperature 97.7 F Pulse Rate 87 Respiratory 14 16 Rate Blood Pressure 117/69 (mmHg) O2 Sat by Pulse 99 Oximetry Oxygen Devices in Use Now: Nasal Cannula Appearance: alert, comfortable, no distress Eyes: No Scleral Icterus Ears/Nose/Mouth/Throat: NL Teeth, Lips, Gums Neck: NL Appearance and Movements; NL JVP Respiratory: Symmetrical Chest Expansion and Respiratory Effort Cardiovascular: - - irregular rhythm Abdominal: NL Sounds; No Tenderness; No Distention, - - ostomy without blood Extremities: - - left leg tense, swollen with thinning skin, feet warm, sensation in tact, pulses 1+, no cyanosis, no ulcers Neurological: Alert and Oriented x 3 Result Diagrams: 12/06/17 06:53 12/05/17 08:20 Microbiology and Other Data: Microbiology 11/30/17 06:32 Urine Culture - Final Urine No Growth (<1,000 CFU/mL) Assess/Plan/Problems-Billing Ms Ziegler is a 67 yo F who has a h/o COPD with chronic hypoxic respiratory failure requiring 2L O2 continuously, afib, CAD, HTN, diastolic CHF, RYAN and previous DVT/PE who presented to the ER with c/o L LE pain and was found to have an extensive DVT. - Patient Problems (1) Left leg DVT Current Visit: Yes Status: Acute Code(s): I82.402 - ACUTE EMBOLISM AND THOMBOS UNSP DEEP VEINS OF L LOW EXTREM SNOMED Code(s): 385901896 Comment: IVC filter placed since she has failed therapeutic anticoagulation multiple times (has been attempted in the past for afib with elevated CHADSVasc score), but pain is increasing, which is concerning for worsening venous drainage. I discussed the case with Dr. Nicholson from IR and appreciate his input regarding need for thrombectomy vs. CDT vs. stenting. Extent of clot burden is concerning for May Thurner Syndrome. Intervention will be challenging as systemic anticoagulation is currently contraindicated given recurrent GI bleeding. She is willing to be evaluated by IR today. (2) Atrial fibrillation Current Visit: Yes Status: Acute Code(s): I48.91 - UNSPECIFIED ATRIAL FIBRILLATION SNOMED Code(s): 95840537 Comment: The patient remains in afib. Resume digoxin but reduced dose secondary to elevated dig level on admission. Continue metoprolol and diltiazem. (3) COPD (chronic obstructive pulmonary disease) Current Visit: Yes Status: Acute Code(s): J44.9 - CHRONIC OBSTRUCTIVE PULMONARY DISEASE, UNSPECIFIED SNOMED Code(s): 31799451 Comment: No signs of exacerbation. Conitnue current medication regimen. (4) Lower GI bleed Current Visit: Yes Status: Acute Code(s): K92.2 - GASTROINTESTINAL HEMORRHAGE, UNSPECIFIED SNOMED Code(s): 35270313 Comment: Hgb stable colonoscopy showed "minimal AVMs" and no obvious source of bleeding (5) DM2 (diabetes mellitus, type 2) Current Visit: Yes Status: Chronic Comment: Last A1c 7.0% in 10/2017. Continue glipizide, metformin currently being held. (6) Diastolic CHF Current Visit: Yes Status: Chronic Code(s): I50.30 - UNSPECIFIED DIASTOLIC ( CONGESTIVE) HEART FAILURE SNOMED Code(s): 867333592 Comment: Currently euvolemic. Continue toresemide at home dose. (7) C. difficile colitis Current Visit: Yes Status: Acute Comment: sent in colonoscopy and positive, though she is not having diarrhea. "polka dot" colon raised suspicion; treating with po vanc--may have accounted for hematochezia?
--- NOTE | 2017-12-08 14:29 | RAD ---
HISTORY: DVT, now with worsening swelling and pain COMPARISONS: November 29, 2017 TECHNIQUE: Multiple transverse and longitudinal ultrasound images were obtained of the lower from the level of the common femoral vein inferiorly through to the infrapopliteal veins using grayscale, color Doppler, and spectral Doppler imaging with and without compression and with augmentation. Comparison images were obtained of the contralateral common femoral vein. FINDINGS: VEINS: Again noted is occlusive thrombus extending from the common femoral vein inferiorly into the calf. This is similar to the previous examination. There is also thrombosis of the greater saphenous vein.. SOFT TISSUES: Unremarkable. OTHER FINDINGS: None. IMPRESSION: 1. EXTENSIVE LEFT LOWER EXTREMITY DEEP VEIN OCCLUSIVE THROMBUS SIMILAR TO THE NOVEMBER 29, 2017 EXAMINATION. 2. THERE IS THROMBOSIS OF THE GREATER SAPHENOUS VEIN
[2017-12-08] MEDS: Digoxin TAB* 0.125 MG PO SCH (17:14)
[2017-12-08] MEDS: Vancomycin CAP* 125 MG CAP PO SCH ×2 (17:14→21:28)
--- NOTE | 2017-12-08 17:19 | CONSULT ---
Consult Consult: Date of Service: 12/08/17 Reason for Consultation: Left leg swelling and pain with +DVT Requesting Service: Dr. Ontiveros, Hospitalists (Focused) HPI: Mrs. Ziegler is a 67-year-old woman with a complicated medical history that was admitted November 29, 2017. At that time the patient reported her daughter fell in her groin and she subsequently had left groin pain. The patient said she began to notice the pain and swelling close to one week before the admission , around November 24. Ultrasound examination of the left lower leg revealed DVT. She has a complicated medical history that includes bowel resection and ostomy creation for bowel obstruction about [address] Jackson. Since the ostomy was created she has bleeding at the ostomy site whenever she is on anticoagulation. Prior to this episode she states her leg swelling is more often worse in the right leg. She also reports bilateral leg pain when walking consistent with arterial insufficiency claudication. PAST MEDICAL HISTORY: 1. Prolonged hospitalization ending on 09/21/17 for intraabdominal mass, presumed abscess and sepsis. The patient was discharged on 09/21/17 with plans of IV ceftriaxone and Flagyl. After 4 days of this treatment, the patient was switched to p.o. antibiotics and today her PICC line was pulled. 2. History of recent GI bleed, during which hospital stay the patient's anticoagulation was discontinued. 3. History of atrial fibrillation with periods of atrial fibrillation with rapid ventricular response. 4. History of COPD, on oxygen at 2 to 3 L. 5. History of chronic diastolic CHF. 6. History of left-sided hydronephrosis, likely related to the abdominal mass. 7. History of peripheral vascular disease. 8. Gastroesophageal reflux disease. 9. Chronic pain. 10. Hypertension. 11. Obstructive sleep apnea. 12. Diabetes. 13. History of bowel obstruction, status post colostomy. Family History: Findings - Both mother and brother had heart disease. Social History: Findings - Lives with her son Nehemiah who is her SDM. Quit smoking many yrs ago. No alcohol abuse. Physical Examination: Selected Entries 12/08/17 12/08/17 15:23 17:14 Temperature 97.9 F Temperature Oral Source Pulse Rate 65 Respiratory 16 Rate Blood Pressure 99/59 (mmHg) Blood Pressure 70 Mean O2 Sat by Pulse 100 Oximetry Patient on Room No Air Circumferences of legs (cm): Right Left Thigh 46.7 61.0 (measured ~10 cm above patella) Calf 42.5 55.0 NAD, AAO x 3 RRR Vesicular breath sounds but CTAB Abdomen is protuberant Midline ostomy is grossly normal as visualized through her ostomy bag Visible L>R leg swelling, hemosiderin staining of the bilateral lower legs in the gaiter distribution Relevant Labs: Laboratory Tests 12/01/17 12/03/17 12/04/17 05:57 11:11 06:53 WBC 12.0 H 10.3 9.2 RBC Hgb 9.8 L Hct 32 L Neut % (Auto) 63.0 BUN Creatinine Est GFR ( Amer) Est GFR (Non-Af Amer) POC Glucose (mg/dL) C-Reactive Protein 12/05/17 12/05/17 12/06/17 08:20 08:20 06:53 WBC 8.2 7.7 RBC 4.19 Hgb 9.6 L 10.3 L Hct 31 L 33 L Neut % (Auto) BUN 14 Creatinine 0.63 Est GFR ( Amer) 114.1 Est GFR (Non-Af Amer) 94.3 POC Glucose (mg/dL) C-Reactive Protein 60.59 H 12/08/17 16:22 WBC RBC Hgb Hct Neut % (Auto) BUN Creatinine Est GFR ( Amer) Est GFR (Non-Af Amer) POC Glucose (mg/dL) 158 H C-Reactive Protein Imaging: Patient Name: MERCY ZIEGLER Medical Record#: [id number] Ordering Physician: Lupe Ontiveros DO Acct.#: [id number] : 1950 Age: 67 Sex: F Location: SURGICAL STAY UNIT Exam Date: 12/08/17 1242 ADM Status: ADM IN Order Information: VL LOWER EXT VEINS LEFT Accession Number: [id number] CPT: 02436 HISTORY: DVT, now with worsening swelling and pain COMPARISONS: November 29, 2017 TECHNIQUE: Multiple transverse and longitudinal ultrasound images were obtained of the lower from the level of the common femoral vein inferiorly through to the infrapopliteal veins using grayscale, color Doppler, and spectral Doppler imaging with and without compression and with augmentation. Comparison images were obtained of the contralateral common femoral vein. FINDINGS: VEINS: Again noted is occlusive thrombus extending from the common femoral vein inferiorly into the calf. This is similar to the previous examination. There is also thrombosis of the greater saphenous vein.. SOFT TISSUES: Unremarkable. OTHER FINDINGS: None. IMPRESSION: 1. EXTENSIVE LEFT LOWER EXTREMITY DEEP VEIN OCCLUSIVE THROMBUS SIMILAR TO THE NOVEMBER 29, 2017 EXAMINATION. 2. THERE IS THROMBOSIS OF THE GREATER SAPHENOUS VEIN <Electronically signed by Damion Ricketts MD in [place]> 12/08/171425 Dictated By: Damion Ricketts MD Dictated Date/Time: 12/08/171425 Transcribed Date/Time: 12/08/171423 Copy to: I have personally reviewed her prior CT and MR imaging as well as the fluoroscopic images from her recent IVC filter placement. There appears to be compression of the left common iliac vein between the left common iliac artery and spine consistent with May Thurner Syndrome. She has a soft tissue mass in her left lower abdomen that is getting smaller and is not causing venous compression. Summary: Mrs. Ziegler appears to have May Thurner Syndrome- chronic compression of the left common iliac vein. The hemosiderin staining at her bilateral lower legs indicate long standing venous hypertension. This would certainly account for the current left leg DVT and swelling she has. She has had these symptoms for about 2 weeks and the threat of Chronic Thrombotic Syndrome is present. The deep vein thromboses can turn into scar with 4 weeks at which point the valves become non-functional and veins permanently stenotic. This leads to chronic swelling, pain, inflammation and skin breakdown (i.e. "venous stasis ulcers"). Stenting of the left common iliac vein is indicated, but this requires therapeutic Heparin and at least 6 months of anti-platelet therapy after stenting. Ideally the patient should anticoagulated, but develops GI/ostomy bleeding. It is unclear to me what the eveline of the bleeding is. I was told she has "some sort of AVM", possibly angiodysplasia. With a chronically occluded left common iliac vein it is possible that she is decompressing her left leg and pelvis systemic veins into her mesenteric veins. This could cause mesenteric venous hypertension and be the cause of her ostomy bleeding. Recently she had an IVC filter placed which will not influence her LLE DVT. If the filter captures thrombus, as it is designed to do, then she may develop IVC thrombosis. Recommendations: 1. The patient is unaware of any hypercoaguable state. I recommend hypercoaguable laboratory workup, possibly by hematology/oncology. A hypercoaguable disorder will certainly exacerbate left common iliac vein compression. 2. CTA Aorta with runoff followed by venous phase imaging from the popliteal fossae to the diaphragm. This will help determine if the patient in fact does have some of GI arteriovenous malformation and will simulataneously evaluate her peripheral arterial disease (she complains of chronic claudication). The venous phase will help elucidate the flow pattern in her abdomen and pelvis. * The patient has a contrast allergy and will need a steroid prep: SoluMedrol 50 mg PO 13, 7 and 1 prior to injection. 3. If it is revealed that [facility]'s GI bleed is due to compression of the left common iliac vein then stenting that vein may relieve the GI bleed and allow for anti-coagulation which is truly the top priority to avoid Chronic Thrombotic Occlusion. 4. I recommend removing the IVC filter as soon as it is safe to do so.
[2017-12-08] MEDS ORDERED: methylPREDNISolone SOD 40 MG* 1 ML VIAL IV ONE (19:12)
[2017-12-08] MEDS: Mometasone 220 MCG MDI INH SCH (20:11)
[2017-12-08] MEDS: Pregabalin CAP(*) 50 MG PO SCH (20:46)
[2017-12-08] MEDS: traZODone TAB* 50 MG TAB PO SCH (21:28)
[2017-12-09] MEDS ORDERED: methylPREDNISolone SOD 40 MG* 1 ML VIAL IV ONE ×2 (02:00→08:00)
[2017-12-09] MEDS: oxyCODONE TAB* 5 MG TAB PO PRN ×4 (02:17→19:03)
[2017-12-09] MEDS: Levothyroxine TAB* 150 MCG TAB PO SCH (05:47)
[2017-12-09] MEDS: Heparin VIAL(*) 5000 UNITS/ML VIAL (FIVE THOUSAND) SUBCUT SCH ×2 (05:47→14:16)
[2017-12-09] MEDS: Insulin LISPRO* 1 UNITS UNIT SUBCUT SCH ×3 (08:15→17:45)
[2017-12-09] MEDS: glipiZIDE TAB* 5 MG PO SCH (08:15)
[2017-12-09] MEDS: Tiotropium CAP.INH* CAP.INH/18 MCG (USE ORDER SET !) INH SCH (08:16)
[2017-12-09] MEDS: Vancomycin CAP* 125 MG CAP PO SCH ×3 (08:16→17:45)
[2017-12-09] MEDS: Ezetimibe TAB* 10 MG PO SCH (08:17)
[2017-12-09] MEDS: Metoprolol Succinate XL TAB* 25 MG PO SCH (08:17)
[2017-12-09] MEDS: Omeprazole CAP* 20 MG PO SCH (08:18)
[2017-12-09] MEDS: Spironolactone TAB* 25 MG PO SCH (08:18)
[2017-12-09] MEDS: Cephalexin CAP* 500 MG PO SCH ×3 (08:18→17:45)
[2017-12-09] MEDS: Torsemide TAB* 20 MG PO SCH (08:18)
[2017-12-09] MEDS: Atorvastatin* 80 MG TAB PO SCH (08:18)
[2017-12-09] MEDS: Aspirin EC TAB* 81 MG TAB.EC PO SCH (08:18)
[2017-12-09] MEDS: Nystatin TOP POWDER* 15 GM BTL TOPICAL SCH ×2 (08:19→14:36)
[2017-12-09] MEDS ORDERED: diPHENhydraMINE PO* 50 MG PO PRN (08:47)
[2017-12-09] MEDS ORDERED: Iodixanol* (CONTRAST) 320 MG/ML 100 ML SDV IV ONE (08:53)
[2017-12-09] MEDS ORDERED: Diltiazem CD CAP* 120 MG PO SCH (09:00)
[2017-12-09] MEDS ORDERED: Iodixanol* (CONTRAST) 320 MG/ML 100 ML SDV IV SCH (11:00)
--- NOTE | 2017-12-09 15:04 | PN ---
Subjective Date of Service: 12/09/17 Interval History: Still complains of pain in her left leg. Oxycodone helps but never relieves the pain. It is mostly in the posterior leg. She denies numbness or tingling. Skin is in tact. Family History: Findings - Both mother and brother had heart disease. Social History: Findings - Lives with her son Nehemiah who is her SDM. Quit smoking many yrs ago. No alcohol abuse. Past Medical History: Findings - Colostomy for obstruction many yrs ago. AVR bioprosthetic. 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 CABG 2009, DM, hypothyroid, cholecystectomy, atrial fib on warfarin until her GI bleed Objective Active Medications: Albuterol (Ventolin Hfa Inhaler*) 2 puff INH Q4H PRN PRN Reason: SOB/WHEEZING Aspirin (Aspirin Ec Tab*) 81 mg PO DAILY [facility] Last Admin: 12/09/17 08:18 Dose: 81 mg Atorvastatin Calcium (Lipitor*) 80 mg PO DAILY [facility] Last Admin: 12/09/17 08:18 Dose: 80 mg Cephalexin HCl (Keflex Cap*) 500 mg PO QID [facility] Last Admin: 12/09/17 13:18 Dose: 500 mg Dextrose (D50w Syringe 50 Ml*) 12.5 gm IV PUSH .FOR FS < 60 - SS PRN PRN Reason: FS < 60 Digoxin (Lanoxin Tab*) 0.125 mg PO 1700 [facility] Last Admin: 12/08/17 17:14 Dose: 0.125 mg Diltiazem HCl (Cardizem Cd Cap*) 120 mg PO DAILY [facility] Last Admin: 12/09/17 08:17 Dose: 120 mg Diphenhydramine HCl (Benadryl Po*) 50 mg PO Q6H PRN PRN Reason: Allergy Symptoms Last Admin: 12/09/17 09:14 Dose: 50 mg Ezetimibe (Zetia Tab*) 10 mg PO DAILY [facility] Last Admin: 12/09/17 08:17 Dose: 10 mg Glipizide (Glucotrol Tab*) 2.5 mg PO DAILY [facility] Last Admin: 12/09/17 08:15 Dose: 2.5 mg Heparin Sodium (Porcine) (Heparin Vial(*)) 5,000 units SUBCUT Q8HR [facility] Last Admin: 12/09/17 14:16 Dose: 5,000 units Insulin Human Lispro (Humalog*) 0 units SUBCUT ACHS [facility]; Protocol Last Admin: 12/09/17 13:18 Dose: 6 unit Iodixanol (Visipaque* 320 (Contrast)) 125 ml IV ONCE [facility] Stop: 12/11/17 10:59 Levothyroxine Sodium (Synthroid Tab*) 150 mcg PO DAILY@0600 [facility] Last Admin: 12/09/17 05:47 Dose: 150 mcg Metoprolol Succinate (Toprol Xl Tab*) 75 mg PO DAILY [facility] Last Admin: 12/09/17 08:17 Dose: 75 mg Mometasone Furoate (Asmanex 220 Mcg Mdi *) 2 puff INH BEDTIME [facility] Last Admin: 12/08/17 20:11 Dose: 2 puff Nystatin (Nystatin Top Powder*) 1 applic TOPICAL TID [facility] Last Admin: 12/09/17 14:36 Dose: Not Given Omeprazole (Prilosec Cap*) 40 mg PO DAILY [facility] Last Admin: 12/09/17 08:18 Dose: 40 mg Ondansetron HCl (Zofran Inj*) 4 mg IV Q6H PRN PRN Reason: NAUSEA/VOMITING Last Admin: 11/30/17 20:15 Dose: 4 mg Ondansetron HCl (Zofran Odt Tab*) 4 mg SL Q6H PRN PRN Reason: NAUSEA/VOMITING Oxycodone HCl (Roxycodone Tab*) 10 mg PO Q4H PRN PRN Reason: PAIN Last Admin: 12/09/17 14:16 Dose: 10 mg Pregabalin (Lyrica Cap(*)) 50 mg PO BEDTIME [facility] Last Admin: 12/08/17 20:46 Dose: 50 mg Spironolactone (Aldactone Tab*) 25 mg PO DAILY [facility] Last Admin: 12/09/17 08:18 Dose: 25 mg Tiotropium [place] (Spiriva Cap.Inh*) 1 cap INH DAILY [facility] Last Admin: 12/09/17 08:16 Dose: 1 cap Torsemide (Demadex*) 20 mg PO DAILY [facility] Last Admin: 12/09/17 08:18 Dose: 20 mg Trazodone HCl (Desyrel Tab*) 100 mg PO BEDTIME [facility] Last Admin: 12/08/17 21:28 Dose: 100 mg Vancomycin HCl (Vancomycin Cap*) 125 mg PO QID [facility] Last Admin: 12/09/17 13:18 Dose: 125 mg Vital Signs - 8 hr 12/09/17 12/09/17 12/09/17 07:20 08:18 09:14 Temperature 97.8 F Pulse Rate 96 Respiratory 16 14 16 Rate Blood Pressure 110/51 (mmHg) O2 Sat by Pulse 98 Oximetry 12/09/17 12/09/17 12/09/17 09:18 09:55 11:14 Temperature Pulse Rate Respiratory 16 16 16 Rate Blood Pressure (mmHg) O2 Sat by Pulse Oximetry 12/09/17 14:16 Temperature Pulse Rate Respiratory 18 Rate Blood Pressure (mmHg) O2 Sat by Pulse Oximetry Oxygen Devices in Use Now: Nasal Cannula Appearance: alert, sitting in recliner comfortably Eyes: No Scleral Icterus Ears/Nose/Mouth/Throat: NL Teeth, Lips, Gums Neck: NL Appearance and Movements; NL JVP Respiratory: Symmetrical Chest Expansion and Respiratory Effort, Clear to Auscultation Cardiovascular: - - irregular rhythm Abdominal: - - ostomy bag without blood. stoma is pink. liquid stool in bag. Extremities: - - LLE >> RLE. foot is warm. DP pulse 1+. skin in tact. Neurological: Alert and Oriented x 3 Result Diagrams: 12/06/17 06:53 12/05/17 08:20 Microbiology and Other Data: Microbiology 11/30/17 06:32 Urine Culture - Final Urine No Growth (<1,000 CFU/mL) Assess/Plan/Problems-Billing Ms Ziegler is a 67 yo F who has a h/o COPD with chronic hypoxic respiratory failure requiring 2L O2 continuously, afib, CAD, HTN, diastolic CHF, RYAN and previous DVT/PE who presented to the ER with c/o L LE pain and was found to have an extensive DVT. - Patient Problems (1) Left leg DVT Current Visit: Yes Status: Acute Code(s): I82.402 - ACUTE EMBOLISM AND THOMBOS UNSP DEEP VEINS OF L LOW EXTREM SNOMED Code(s): 943626564 Comment: Now concerning for lack of venous outflow--CTA done this morning, awaiting read I believe she will need stenting or CDT or thrombectomy; however these procedures would all require therapeutic anticoagulation Discussed the case with Dr. Nicholson of IR yesterday; he will review the CTA today and reassess need for intervention (2) Atrial fibrillation Current Visit: Yes Status: Acute Code(s): I48.91 - UNSPECIFIED ATRIAL FIBRILLATION SNOMED Code(s): 91556843 Comment: The patient remains in afib. Resume digoxin but reduced dose secondary to elevated dig level on admission. Continue metoprolol and diltiazem. (3) COPD (chronic obstructive pulmonary disease) Current Visit: Yes Status: Acute Code(s): J44.9 - CHRONIC OBSTRUCTIVE PULMONARY DISEASE, UNSPECIFIED SNOMED Code(s): 88289837 Comment: No signs of exacerbation. Conitnue current medication regimen. (4) Lower GI bleed Current Visit: Yes Status: Acute Code(s): K92.2 - GASTROINTESTINAL HEMORRHAGE, UNSPECIFIED SNOMED Code(s): 70664635 Comment: Hgb stable colonoscopy showed "minimal AVMs" and no obvious source of bleeding (5) DM2 (diabetes mellitus, type 2) Current Visit: Yes Status: Chronic Comment: Last A1c 7.0% in 10/2017. Continue glipizide, metformin currently being held. (6) Diastolic CHF Current Visit: Yes Status: Chronic Code(s): I50.30 - UNSPECIFIED DIASTOLIC ( CONGESTIVE) HEART FAILURE SNOMED Code(s): 367555780 Comment: Currently euvolemic. Continue toresemide at home dose. (7) C. difficile colitis Current Visit: Yes Status: Acute Comment: sent in colonoscopy and positive, though she is not having diarrhea. "polka dot" colon raised suspicion; treating with po vanc--may have accounted for hematochezia?
[2017-12-09 15:32] VITALS: BP 104/70
[2017-12-09] MEDS ORDERED: Morphine VIAL* 4 MG/ML VIAL (1 ml vial) IV PRN (17:40)
[2017-12-09] MEDS: Digoxin TAB* 0.125 MG PO SCH (17:45)
--- NOTE | 2017-12-10 12:38 | TRS ---
CC: Dr. 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 PRIMARY CARE PHYSICIAN: Dr. Simons. PRINCIPAL DISCHARGE DIAGNOSES: 1. May-Thurner syndrome. 2. Lower gastrointestinal bleed. 3. Clostridium difficile colitis. SECONDARY DISCHARGE DIAGNOSES: 1. Atrial fibrillation. 2. History of bowel obstruction, status post colostomy. 3. Chronic diastolic heart failure. 4. History of coronary artery disease, status post CABG. 5. Chronic hypoxic respiratory failure. 6. Anxiety. 7. Diabetes. 8. Hypertension. 9. Depression. HOSPITAL COURSE BY PROBLEM: 1. May-Thurner syndrome: Ms. Ziegler presented to the emergency department with left leg pain and swelling. Lower extremity Doppler showed extensive, occlusive DVT. She was admitted to the hospitalist service. She was started on therapeutic Lovenox. The admission venous Doppler study on 11/29/17 showed the location of the thrombus to be occlusive from the level of the common femoral vein inferiorly through to the calf. A pelvic MRI was obtained due to concerns for a left lower quadrant mass to have caused the extensive thrombus, which showed a triangular- shaped abnormality, which is soft tissue superior to the left adnexa. This was thought to be scar tissue and was reviewed with Radiology and determined not to be impinging on the iliac vein. On 11/30/17, she was switched from Lovenox to Xarelto and on 12/03/17, she began to experience hematochezia, which I will discuss in the problem. Regarding the May -Thurner syndrome, after she was deemed to fail anticoagulation due to a lower GI bleed, which of note was recurrent, General Surgery was consulted for a IVC filter and they placed one on 12/05/17. Her left lower extremity pain and swelling continued and I consulted Interventional Radiology for consideration of stenting, thrombolysis, or CDT. Dr. Nicholson from Interventional Radiology evaluated Ms. Ziegler on 12/08/17 and agreed that she may need an intervention. An aorta was run off. CTA was obtained on 12/09/17. The office report of this is still pending, but I have discussed it with Dr. Nicholson and he recommends transfer to a higher level of care for interventional radiology assessment and possible iliac vein stenting versus thrombolysis versus catheter- directed thrombolysis. I have discussed these possibilities with Ms. Ziegler and explained that any of these procedures would require retrying therapeutic anticoagulation. She is open to this possibility. She agrees with the transfer. 2. Lower GI bleed on the morning of 12/03/17. She was found to have bright red blood in her ostomy bag. Her hemoglobin dropped from 11.7 to 9.6. The Xarelto was stopped at this time and the bleeding resolved. GI was consulted and performed an ileostomy on 12/06/17. The ileostomy showed minimal AVMs in the proximal right colon, diffuse polka dot exudate, right colon and sigmoid diverticulosis and bleeding from the stoma, but with no particular pathology to explain the bleeding. Of note, a C. diff culture obtained in the procedure returned as positive, which may have accounted for her hematochezia; however, she was not particularly having diarrhea and this would be somewhat unlikely. In the past, she has had significant bleeding from AVMs, which have more visible on colonoscopy. Her hemoglobin has remained stable off anticoagulation at this time. 3. C. difficile colitis. Again, this was found interprocedure and she is on vancomycin p.o., which was started the first day on 12/06/17. 4. Chronic diastolic heart failure. She is euvolemic at this time. She has been continued on her home dose of torsemide. 5. Atrial fibrillation. She has had admissions in the past where her heart rate had been difficult to control, however on this admission it has been well controlled on her home doses of metoprolol, diltiazem, and digoxin. 6. Chronic hypoxic respiratory failure. She is on her home oxygen requirement of 2 L continuously and is satting 99% on this. 7. Type 2 diabetes. Her last A1c in October 2017 was 7.0. She has been maintained on the sliding scale inpatient. 8. Disposition. Ms. Ziegler is being discharged to [facility] on at 6 p.m. This transfer has been arranged by the transfer center. I have discussed the case with the hospitalist whose service she will be on and Dr. Nicholson has discussed the case with the interventional radiologist there. They are agreed to accept her case and Ms. Ziegler understands the risks and benefits of the transfer and is agreeable to going to [facility]. 9. Coronary artery disease, status post CABG. She has been stable on aspirin and statin and beta-bao. PHYSICAL EXAMINATION AT THE TIME OF DISCHARGE: Temperature 97.8, heart rate 77 , respiratory rate 18, pulse ox 99% on 2 L, blood pressure 104/70. General: Alert, comfortable, well-appearing female, in no distress. HEENT: Pupils are equal, round and reactive to light. No nystagmus. Oral mucosa is moist. No pharyngeal exudates or erythema. Neck: No cervical adenopathy. No JVP. Chest : Irregular rhythm. Lungs: Clear bilaterally. PMI nondisplaced. Abdomen: Colostomy with no blood in the bag. The stoma is pink. There is liquid stool in the bag. Her abdomen is soft, nontender, nondistended with normoactive bowel sounds. Extremities: Left lower extremity is markedly larger than the right lower extremity with tense skin. No ulcers or sores. The foot is warm and well perfused and the sensation is intact. The compartments are soft. Her distal pulses are 1+ bilaterally. Her strength is 5/5 bilaterally. Please do not hesitate to contact me with any questions or concerns about Ms. Ziegler's admission and discharge. [id number]/[facility] #: [id number] MTDD
--- NOTE | 2017-12-16 16:18 | RAD ---
INDICATION: Arterial claudication. Clinical concern for potential GI tract AV malformations. Post cholecystectomy. Renal stone removal, colostomy. COMPARISON: October 11, 2017 contrast-enhanced CT abdomen TECHNIQUE: Multidetector CT images were obtained from the lung bases to the feet with 125 mL Visipaque 320 IV contrast. Full [id number] routine arterial phase and delayed arterial phase of the lower legs. Multiplanar reformation without and with maximum intensity projection. 3-D arterial volume rendering. REPORT: ABDOMINAL AORTA: Mild atherosclerotic plaque of normal diameter abdominal aorta. Negative for hemodynamic significant resulting stenosis. Mild calcific plaque at the ostium of the celiac axis with only approximate 30% stenosis resulting. Moderate calcific and noncalcific plaque at the proximal segment of the superior mesenteric artery with approximate 50% short segment stenosis resulting. Normal opacification of the inferior mesenteric artery with small size limiting assessment. Calcific and noncalcific plaque at the ostium of the solitary RIGHT renal artery with approximate 70 % short segment ostial stenosis resulting. Calcific and noncalcific plaque at the solitary LEFT renal artery with approximate 70% stenosis extending over approximate 1 cm of the ostium through proximal segment. No abdominal or pelvic vascular malformations evident. RIGHT ILIAC and LOWER EXTREMITY ARTERIES: Calcific and noncalcific plaque results in long segment 70% or greater stenosis at the RIGHT common iliac artery as well as the RIGHT external and internal iliac arteries. Similar approximate 70% stenosis at the RIGHT common femoral artery. The RIGHT superficial femoral artery is occluded. Collateral reconstitution of the RIGHT popliteal artery. Faint three-vessel runoff to the RIGHT ankle. LEFT ILIAC and LOWER EXTREMITY ARTERIES: Calcific and noncalcific plaque results in up to 90% stenosis of the LEFT common iliac artery, occlusion of the LEFT internal iliac artery, and up to 70% stenosis of the LEFT external iliac artery. Approximate 70% stenosis at the LEFT common femoral artery. Occluded LEFT superficial femoral artery. Collateral reconstitution of the LEFT popliteal artery. Faint three-vessel runoff to the LEFT ankle. NON-VASCULAR FINDINGS: Cardiomegaly. Small bilateral dependent pleural effusions and proportional basilar atelectasis. Post cholecystectomy. Negative for biliary dilatation. Atrophic pancreas without suspicious finding. Unremarkable spleen. Large broad mouth ventral hernia containing small bowel and large bowel loops as well as an apparent enteric ostomy site. Severe diverticulosis of the sigmoid colon without findings of acute diverticulitis. Negative for adrenal lesions. Symmetric nephrograms and pyelograms. Normal variant extrarenal pelves. Negative for hydronephrosis. Unremarkable nondilated ureters and urinary bladder. Anteverted uterus. Unremarkable adnexal regions. Negative for lymphadenopathy. Inferior vena cava filter in place. Polyarticular degenerative arthropathy. LEFT total hip replacement. Lateral subcutaneous edema at the LEFT buttock and thigh. Severe LEFT and less marked RIGHT lower extremity edema. IMPRESSION: #. Severe atherosclerotic vascular disease with mesenteric and renal artery stenosis as well as pelvic inflow and intrinsic lower extremity stenoses and arterial occlusions as described. #. Bilateral collateral reconstitution of the popliteal arteries and faint three-vessel runoff to the ankles. #. No evidence for GI tract AV malformations. #. Severe LEFT worse than RIGHT lower extremity edema.
== END 2017-12-09 19:15 | disposition short-term general hospital (02) | DRG 253 ==
LOC: ED 10:15 → MED 12:19 → SSU 12-05 14:52
PROVIDERS: ADMIT Internal Medicine; ATTEND Internal Medicine
PROC: 0DBF8ZX Excision of Right Large Intestine, Via Natural or Artificial Opening Endoscopic, Diagnostic (ICD-10-PCS; 2017-11-30)
PROC: 06H03DZ Insertion of Intraluminal Device into Inferior Vena Cava, Percutaneous Approach (ICD-10-PCS; principal; 2017-12-05 12:00)
DX: I82.412 Acute embolism and thrombosis of left femoral vein (principal); I87.1 Compression of vein; A04.72 Enterocolitis due to Clostridium difficile, not specified as recurrent; I50.32 Chronic diastolic (congestive) heart failure; J96.11 Chronic respiratory failure with hypoxia; K92.1 Melena; D68.32 Hemorrhagic disorder due to extrinsic circulating anticoagulants; Z68.41 Body mass index [BMI] 40.0-44.9, adult; L03.116 Cellulitis of left lower limb; I48.91 Unspecified atrial fibrillation; Z93.3 Colostomy status; I25.10 Atherosclerotic heart disease of native coronary artery without angina pectoris; Z95.1 Presence of aortocoronary bypass graft; F41.9 Anxiety disorder, unspecified; I11.0 Hypertensive heart disease with heart failure; F32.9 Major depressive disorder, single episode, unspecified; T45.515A Adverse effect of anticoagulants, initial encounter; Y92.239 Unspecified place in hospital as the place of occurrence of the external cause; Q27.33 Arteriovenous malformation of digestive system vessel; K57.30 Diverticulosis of large intestine without perforation or abscess without bleeding; Z88.8 Allergy status to other drugs, medicaments and biological substances; Z91.030 Bee allergy status; Z91.041 Radiographic dye allergy status; Z91.013 Allergy to seafood; J44.9 Chronic obstructive pulmonary disease, unspecified; Z82.49 Family history of ischemic heart disease and other diseases of the circulatory system; Z87.891 Personal history of nicotine dependence; Z95.2 Presence of prosthetic heart valve; Z86.718 Personal history of other venous thrombosis and embolism; Z86.711 Personal history of pulmonary embolism; E03.9 Hypothyroidism, unspecified; Z90.49 Acquired absence of other specified parts of digestive tract; E66.9 Obesity, unspecified; Z99.81 Dependence on supplemental oxygen; E78.00 Pure hypercholesterolemia, unspecified; E11.51 Type 2 diabetes mellitus with diabetic peripheral angiopathy without gangrene; Z87.01 Personal history of pneumonia (recurrent); K21.9 Gastro-esophageal reflux disease without esophagitis; Z87.442 Personal history of urinary calculi; M19.012 Primary osteoarthritis, left shoulder; M19.011 Primary osteoarthritis, right shoulder; M17.0 Bilateral primary osteoarthritis of knee; Z96.642 Presence of left artificial hip joint; Z98.51 Tubal ligation status; G47.33 Obstructive sleep apnea (adult) (pediatric); G89.29 Other chronic pain
CPT/HCPCS: 36415; 72197; 75635; 76000; 80048; 80053; 80162; 81003; 81015; 82272; 84443; 85014; 85018; 85025; 85027; 86140; 87086; 87493; 88305; 93005; 94640; 99156; 99157; 99284; A9270-GY; A9579; C1880; G8978-GP-CI; G8979-GP-CH; G8979-GP-CI; J0696; J1160; J1642; J1644; J1650; J2060; J2250; J2270; J2405; J2704; J2920; J3010; Q9967

== ENCOUNTER 2018-02-21 12:43 | Inpatient (IN) | payer MEDICARE, MEDICAID ==
[2018-02-21] MEDS ORDERED: NS 0.9% 1000 ML* 2,000 ML IV ONE (13:07)
[2018-02-21] MEDS ORDERED: Albuterol 0.5% CONC NEB.SOL* 5 MG/ML 20 ml BOT INH ONE (13:09)
[2018-02-21] MEDS ORDERED: Diltiazem IV* 5 MG/ML 5 ML VIAL (for loading dose/IV Push) (25 MG) IV SLOW PU ONE (13:12)
--- NOTE | 2018-02-21 13:14 | ED ---
Shortness of Breath - HPI Summary HPI Summary: This patient is a 67 year old F BIBA to [facility] with a chief complaint of productive cough for the last two days. The patient rates the pain 0/10 in severity. Symptoms alleviated by 4L of O2 NC. Patient reports fever, SOB, and clear sputum. Patient denies CP, ABD pain, and fever, Pt states she is on 2L NC at home. Hx COPD , DM, HTN, and CAD. - History of Current Complaint Chief Complaint: EDShortnessOfBreath Hx Obtained From: Patient Onset/Duration: Lasting Days - 2, Still Present Timing: Constant Current Severity: Moderate Dyspnea At: Rest Alleviating Factors: Oxygen Associated Signs & Symptoms: Negative - CP and ABD pain, Cough (Productive) - Allergy/Home Medications Allergies/Adverse Reactions: Allergies Allergy/AdvReac Type Severity Reaction Status Date / Time bee venom protein (honey bee) Allergy Severe Rash Verified 08/03/17 13:55 shellfish derived Allergy Severe Hives Verified 08/03/17 13:55 Iodinated Contrast- Oral and Allergy Intermediate Hives Verified 08/03/17 13:55 IV Dye celecoxib Allergy Hives Verified 08/03/17 13:55 Home Medications: Home Medications Albuterol 2.5MG/3ML (0.083%)* [Ventolin 2.5 MG/3 ML NEB.ANA*] 2.5 mg INH Q4H PRN 02/21/18 [History Confirmed 02/21/18] EPINEPHrine [Epipen 2-Maico] 0.3 mg IM ONCE PRN 02/21/18 [History Confirmed ] Fluticasone HFA 110 mcg(NF) [Flovent HFA 110 mcg(NF)] 2 puff INH BID 02/21/18 [ History Confirmed 02/21/18] HYDROcodone/ACETAMIN 5-325 MG* [[address] 5-325 TAB*] 1 tab PO Q4H PRN 02/21/18 [ History Confirmed 02/21/18] Lactose-Reduced Food [Ensure Liquid] 237 ml PO DAILY 02/21/18 [History Confirmed 02/21/18] Levothyroxine TAB* [Synthroid TAB*] 175 mcg PO 0700 02/21/18 [History Confirmed 02/21/18] glipiZIDE TAB* [Glucotrol TAB*] 2.5 mg PO DAILY 02/21/18 [History Confirmed 07/10] metFORMIN* [Glucophage 500 MG TAB *] 500 mg PO BID 02/21/18 [History Confirmed 02/21/18] PMH/Surg Hx/FS Hx/Imm Hx Endocrine/Hematology History: Reports: Hx Anticoagulant Therapy, Hx Diabetes - DM II, Hx Thyroid Disease, Hx Anemia Cardiovascular History: Reports: Hx Cardiac Arrest, Hx Congestive Heart Failure , Hx Coronary Artery Disease, Hx Deep Vein Thrombosis, Hx Hypercholesterolemia, Hx Hypotension, Hx Hypertension, Hx Peripheral Vascular Disease, Hx Valvular Heart Disease, Other Cardiovascular Problems/Disorders - CAD, DVT, valve replacement, CABG Denies: Hx Pacemaker/ICD Respiratory History: Reports: Hx Asthma, Hx Chronic Obstructive Pulmonary Disease (COPD), Hx Pneumonia, Hx Pulmonary Embolism, Hx Sleep Apnea, Other Respiratory Problems/Disorders - home o2, 2.5L GI History: Reports: Hx Diverticulosis, Hx Gall Bladder Disease, Hx Gastroesophageal Reflux Disease, Hx Gastrointestinal Bleed - 08/22/16 admission, Hx Hiatal Hernia, Other GI Disorders - DIVERTICULITIS, SBO with colostomy History: Reports: Hx Kidney Stones, Hx Renal Disease - KIDNEY STONES Denies: Hx Dialysis, Other Problems/Disorders Musculoskeletal History: Reports: Hx Arthritis - legs and shoulders, Hx Back Problems, Hx Bursitis, Hx Scoliosis, Other Musculoskeletal History - Left hip replacement Denies: Hx Osteoporosis Sensory History: Reports: Hx Contacts or Glasses Denies: Hx Deafness, Hx Hearing Aid Opthamlomology History: Reports: Hx Contacts or Glasses Neurological History: Denies: Hx Dementia, Hx Developmental Delay, Hx Headaches, Hx Migraine, Hx Nerve Disease, Hx Seizures, Hx Spinal Cord Injury, Hx Transient Ischemic Attacks (TIA), Other Neuro Impairments/Disorders Psychiatric History: Reports: Hx Anxiety, Hx Depression Denies: Hx Panic Disorder, Hx Substance Abuse - Surgical History Surgery Procedure, Year, and Place: TUBAL LIGATION 1979, [facility] [place] , CHOLECYSTECTOMY [facility] [place], 2008, KIDNEY STONES REMOVED 1998, [facility] [place], TRIPLE BYPASS, HEART VALVE REPLACEMENT 2010, [facility], LEFT HIP REPLACED, 2009, [facility]. TONSILECTOMY A CHILD. COLOSTOMY 2016 Hx Anesthesia Reactions: No - Immunization History Date of Tetanus Vaccine: Up to date Date of Influenza Vaccine: Fall 2011 Infectious Disease History: No Infectious Disease History: Reports: Hx of Known/Suspected MRSA - 08/22/16 [facility] + MRSA nares, Hx Shingles Denies: Hx Hepatitis, Hx Human Immunodeficiency Virus (HIV), Traveled Outside the [place] in Last 30 Days - Family History Known Family History: Positive: Cardiac Disease, Other - neg: anesthesia reaction - Social History Alcohol Use: Rare Hx Substance Use: No Substance Use Type: Reports: None Hx Tobacco Use: Yes Smoking Status (MU): Former Smoker Type: Cigarettes Have You Smoked in the Last Year: No Review of Systems Negative: Fever Negative: Chest Pain Positive: Shortness Of Breath, Cough Negative: Abdominal Pain All Other Systems Reviewed And Are Negative: Yes Physical Exam - Summary Physical Exam Summary: Appearance: Well-appearing, Well-nourished. Pt is in mild respiratory distress, Skin: Warm, dry, no obvious rash Eyes: sclera anicteric, no conjunctival pallor ENT: mucous membranes moist, pharynx appears normal Neck: Supple, nontender Respiratory: diffuse wheezing Cardiovascular: Normal S1, S2. No murmurs. Normal distal pulses in tibial and radial bilaterally. Abdomen: Soft, nontender, normal active bowel sounds present Musculoskeletal: Normal, Strength/ROM Intact Neurological: A&Ox3, awake and alert, mentation is normal, speech is fluent and appropriate Psychiatric: affect is normal, does not appear anxious or depressed Triage Information Reviewed: Yes Vital Signs On Initial Exam: Initial Vitals Temp Pulse Resp BP Pulse Ox 97.2 F 160 16 136/106 100 02/21/18 13:02 02/21/18 13:02 02/21/18 13:02 02/21/18 13:02 02/21/18 13:02 Vital Signs Reviewed: Yes Diagnostics - Vital Signs Vital Signs Temp Pulse Resp BP Pulse Ox 02/21/18 13:02 97.2 F 160 16 136/106 100 - Laboratory Result Diagrams: 02/21/18 13:15 02/21/18 13:15 Lab Statement: Any lab studies that have been ordered have been reviewed, and results considered in the medical decision making process. - Radiology CXR Radiology Interpretation Completed By: Radiologist - CARDIOMEGALY. SMALL LEFT PLEURAL EFFUSION VERSUS CHRONIC PLEURAL THICKENING ED physician has reviewed this radiology report. - EKG 1308 Cardiac Rate: Other Rate EKG Rhythm: Atrial Fibrillation - at 144 BPM EKG Interpretation: afib with RVR Course/Dx - Course Assessment/Plan: This patient is a 67 year old F BIBA to [facility] with a chief complaint of productive cough for the last two days. The patient rates the pain 0/10 in severity. Symptoms alleviated by 4L of O2 NC. Patient reports fever, SOB, and clear sputum. Patient denies CP, ABD pain, and fever, Pt states she is on 2L NC at home. Hx COPD , DM, HTN, and CAD. An EKG reveals afib with RVR at 144 BPM. CXR reveals, per radiologist, CARDIOMEGALY. SMALL LEFT PLEURAL EFFUSION VERSUS CHRONIC PLEURAL THICKENING. Blood work obtained. Patient will be admitted to Dr Gómez for rapid afib and COPD exacerbation. The patient is agreeable with this plan. - Diagnoses Provider Diagnoses: COPD exacerbation, Atrial fibrillation, rapid - Physician Notifications Discussed Care of Patient With: Rojelio Cuevas Time Discussed With Above Provider: 15:10 Instructed by Provider To: Admit As Inpatient - Critical Care Time Critical Care Time: 30-74 min - This is a 67-year-old woman coming to the ED with dyspnea and marked tachycardia. She has a baseline history of atrial fibrillation, and the rapid response is likely due to her acute illness. Rate control will be difficult to manage, and she also appears to be suffering from an exacerbation of her COPD, perhaps pneumonia, and diltiazem can certainly cause VQ mismatch with resultant hypoxemia. She will need careful monitoring. Discharge - Sign-Out/Discharge Documenting (check all that apply): Patient Departure - admitted - Discharge Plan Condition: Fair Disposition: ADMITTED TO [facility] Referrals: Kajal Simons MD [Primary Care Provider] - - Attestation Statements Document Initiated by Shaylae: Yes Documenting Scribe: Pawan Traore Provider For Whom Sary is Documenting (Include Credential): Dudley Lane MD Scribe Attestation: Pawan Love , scribed for Dudley Lane MD on 02/21/18 at 1510.
[2018-02-21] MEDS ORDERED: Albuterol 2.5 MG/3 ML NEB.SOL* (0.083%) INH ONE (13:32)
[2018-02-21 13:36] LABS: ABS Basophils 0.1 10^3/ul (0-0.2); ABS Eosinophils 0.2 10^3/ul (0-0.6); ABS Lymphocytes 2.2 10^3/ul (1.0-4.8); ABS Monocytes 0.5 10^3/ul (0-0.8); ABS Neutrophils 5.3 10^3/ul (1.5-7.7); ABS Nucleated RBC 0 10^3/ul; Eosinophil % 2.2 % (0-6); Hematocrit 37 % (35-47); Hemoglobin 11.3 g/dl (12.0-16.0); Lymphocyte % 26.7 % (25-47); Mean Corpuscular HGB Conc 31 g/dl (31-36); Mean Corpuscular Hemoglobin 24 pg (27-31); Mean Corpuscular Volume 76 fL (80-97); Mean Platelet Volume 8.5 um3 (7.4-10.4); Nucleated Red Blood Cells % 0; Platelet Count 228 10^3/ul (150-450); Red Blood Count 4.82 10^6/ul (4.00-5.40); Red Cell Distribution Width 19 % (10.5-15); White Blood Count 8.2 10^3/ul (3.5-10.8)
[2018-02-21 13:40] LABS: EGFR Non-African American 54.1 (>60)
[2018-02-21] MEDS ORDERED: methylPREDNISolone 125 MG* 2 ML VIAL IV ONE (13:55)
[2018-02-21] MEDS ORDERED: Diltiazem IV VIAL* 125 MG in NS 0.9% 100 ML* 100 ML IVPB ONE ×2 (13:57→18:22)
--- NOTE | 2018-02-21 14:23 | RAD ---
HISTORY: sob COMPARISONS: October 19, 2017 VIEWS: 1: frontal AP view of the chest at 1:26 PM FINDINGS: LINES AND TUBES: None. CARDIOMEDIASTINAL SILHOUETTE: The cardiac silhouette is enlarged. A prosthetic heart valve is noted. The cardiomediastinal silhouette is otherwise normal for portable technique. PLEURA: There is a small left pleural effusion versus chronic pleural thickening. LUNG PARENCHYMA: The lungs are clear. ABDOMEN: The upper abdomen is clear. There is no subphrenic gas. BONES AND SOFT TISSUES: The patient is status post median sternotomy. IMPRESSION: CARDIOMEGALY. SMALL LEFT PLEURAL EFFUSION VERSUS CHRONIC PLEURAL THICKENING
[2018-02-21] MEDS ORDERED: oxyCODONE/Acetamin 5/325 MG* TAB PO ONE (15:04)
[2018-02-21] MEDS ORDERED: Albuterol 2.5 MG/3 ML NEB.SOL* (0.083%) INH PRN (15:04)
[2018-02-21] MEDS ORDERED: ALPRAZolam TAB* 0.25 MG PO PRN (15:04)
[2018-02-21] MEDS ORDERED: Albuterol HFA INHALER* 8 gm MDI INH PRN (15:04)
[2018-02-21] MEDS ORDERED: Albuterol/Ipratropium NEB.SOL* Albuterol 2.5 MG/Ipratropium 0.5 MG 3 ML INH PRN (15:09)
[2018-02-21] MEDS ORDERED: Dextrose 50% Syringe 50 ML* 25 GM/50 ML SYRINGE IV PUSH PRN (15:14)
[2018-02-21] MEDS ORDERED: methylPREDNISolone SOD 40 MG* 1 ML VIAL IM SCH (16:00)
[2018-02-21] MEDS ORDERED: Digoxin TAB* 0.25 MG PO ONE (16:23)
--- NOTE | 2018-02-21 17:43 | RAD ---
INDICATION: Lower extremity pain and swelling. COMPARISON: Comparison is made with a prior study from December 08, 2017. TECHNIQUE: Multiple real-time, color flow and Doppler tracings of both lower extremities were obtained. FINDINGS: There is no evidence for deep venous thrombosis in the right lower extremity. There is nonocclusive deep venous thrombus within the left common femoral, femoral and popliteal veins. This was occlusive on the prior study. There is a occlusive thrombus in one peroneal vein similar to the prior exam. The other peroneal vein appears patent and both posterior tibial veins appear patent. The thrombus noted in the left greater saphenous vein on the prior study appears to have resolved. IMPRESSION: 1. EXTENSIVE DEEP VENOUS THROMBOSIS IN THE LEFT LOWER EXTREMITY DESCRIBED. THE FINDINGS APPEARS SLIGHTLY LESS PROMINENT THAN ON THE PRIOR STUDY. 2. NO EVIDENCE FOR DEEP VENOUS THROMBOSIS IN THE RIGHT LOWER EXTREMITY.
[2018-02-21] MEDS: HYDROcodone/ACETAMIN 5-325 MG* 1 TAB PO PRN (18:00)
[2018-02-21] MEDS: Mometasone 220 MCG MDI INH SCH (18:31)
[2018-02-21] MEDS: methylPREDNISolone SOD 40 MG* 1 ML VIAL IV SCH (18:31)
[2018-02-21] MEDS: Insulin LISPRO* 1 UNITS UNIT SUBCUT SCH ×2 (18:31→20:59)
[2018-02-21] MEDS: guaiFENesin ER TAB 600 MG PO SCH (20:58)
[2018-02-21] MEDS: Atorvastatin* 80 MG TAB PO SCH (20:58)
[2018-02-21] MEDS: Pregabalin CAP(*) 50 MG PO SCH (20:59)
[2018-02-21] MEDS: metFORMIN* 500 MG TAB PO SCH (20:59)
[2018-02-21] MEDS: Benzonatate CAP* 100 MG PO SCH (20:59)
[2018-02-21] MEDS: traZODone TAB* 100 MG PO SCH (20:59)
[2018-02-21] MEDS ORDERED: Heparin VIAL(*) 5000 UNITS/ML VIAL (FIVE THOUSAND) SUBCUT SCH (22:00)
--- NOTE | 2018-02-21 22:37 | HP ---
CC: Dr. Simons * ADMISSION HISTORY AND PHYSICAL: DATE OF ADMISSION: 02/21/18 PRIMARY CARE PROVIDER: Dr. Simons. ATTENDING FOR THIS ADMISSION: Rodger Cuevas MD * (DICTATED BY ELISSA MYRICK NP) CHIEF COMPLAINT: Shortness of breath. HISTORY OF PRESENT ILLNESS: This is a 67-year-old female patient with a longstanding history of COPD, who came in with exacerbation of her shortness of breath. The patient had gone to see her primary care provider, who noted her heart rate to be tachycardic and then also referred her to the emergency room for evaluation. Upon examination, the patient is clinically short of breath. She does wear oxygen all the time; however, she is perfusing well and does not have any desaturation. She does have a loose cough and increased sputum production; however, she was also found to be in atrial fibrillation with rapid ventricular response with a rate of 144 on her EKG. For these reasons, we were called to admit the patient. 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 diff colitis. MEDICATIONS AT HOME: Include: 1. Ensure lactose reduced. 2. Hydrocodone/acetaminophen 5/325 mg 1 tab q.4 hours as needed. 3. Albuterol nebulizer inhaled q.4 hours as needed. 4. Albuterol inhaler 2 puffs q.4 hours as needed. 5. Xanax 0.25 mg 3 times a day as needed. 6. Aspirin 81 mg daily. 7. Atorvastatin 80 mg in the evening. 8. Digoxin 0.25 mg daily. 9. Diltiazem 240 mg p.o. daily. 10. Flovent 2 puffs inhaled 2 times a day. 11. Zetia 10 mg daily. 12. Levothyroxine 175 mcg daily. 13. Metoprolol succinate XL 75 mg daily. 14. Omeprazole 40 mg daily. 15. Sertraline 200 mg daily. 16. Lyrica 50 mg at bedtime. 17. Spiriva 1 cap inhaled daily. 18. Torsemide 40 mg daily. 19. Glipizide 2.5 mg daily. 20. Metformin 500 mg 2 times a day. 21. Trazodone 100 mg at bedtime. ALLERGIES: The patient is allergic to BEES, SHELLFISH, IODINE-BASED CONTRAST, and CELECOXIB; all of which gives her hives and rash. FAMILY HISTORY: Noncontributory. SOCIAL HISTORY: The patient is a former smoker. The patient denies any alcohol use. Denies any illicit drug use. She lives at home with her daughter , Stephanie, who is her healthcare proxy and also her aide in the home. Her number is . REVIEW OF SYSTEMS: The patient is complaining of cough, had chest pain earlier in the day which is now resolved. She denies any fever, fatigue, or chills. No nausea, no vomiting, no abdominal pain. No urinary complaints. She does have pain in the right calf, tender with ambulation, and no further constitutional complaints. PHYSICAL EXAMINATION GENERAL: The patient is alert, in no acute distress at this time. VITAL SIGNS: Blood pressure 104/80; respiratory rate is 14; O2 saturation is 100% on 2 L; heart rate is currently in AFib in the high 90s, down from 140s earlier today. HEENT: The patient is atraumatic, normocephalic. PERRLA with nonicteric sclerae. Oral mucosa is moist. Tongue is midline. NECK: Supple, nontender. No JVD noted. No carotid bruits auscultated. LUNGS: Have good air entry. She does have an expiratory wheeze, which is worse on the left than the right. Does not have any rales and no rhonchi noted. CARDIOVASCULAR: S1, S2 present. Rate is tachycardic. Rhythm is irregular. She is in atrial fibrillation on telemetry with some infrequent PVCs. No murmurs, gallops, or rubs noted. ABDOMEN: Soft, nontender, and nondistended. Moderately obese. Positive bowel sounds in all 4 quadrants. No organomegaly appreciated. : Deferred. MUSCULOSKELETAL: There is no clubbing and no cyanosis. Her lower extremities are tight and edematous, nonpitting. She has tenderness to the right calf which I would say is moderate to severe. She does have some discoloration to the lower extremities at her baseline. She has got +2 distal pulses palpable, but slightly thready. NEUROLOGIC: She is grossly intact with no focalities. PSYCHIATRIC: She is cooperative and appropriate. DIAGNOSTIC STUDIES/LAB DATA: WBCs 8.2, RBCs 4.82, hemoglobin 11.3, hematocrit 37, platelets 228,000. Sodium 138, potassium 4.0, chloride 103, CO2 of 29, BUN 20, creatinine 1.02 which is slightly up from her baseline, glucose is 124. BNP is 310 which is around her baseline. Protein 7.4, albumin 3.4, globulin 4.0. Chest x-ray dated today shows cardiomegaly and a small left pleural effusion versus chronic pleural thickening. Also has a prosthetic heart valve that is noted. Lungs are otherwise clear. EKG shows atrial fibrillation with rapid ventricular response and a rate of 144. No other imaging is available. ASSESSMENT: This is a 67-year-old female patient with very complex medical history who presents with shortness of breath, increased cough, calf tenderness and pain. PLAN: The patient right now has been admitted to telemetry service. 1. Atrial fibrillation with rapid ventricular response. She received Cardizem bolus in the ED. Cardizem drip was ordered, but not initiated. Her rate is actually controlled. I think at this point given her hypotension and her rate of only being in the 90s now, we will hold off on the drip. We will continue her diltiazem and her metoprolol and get a digoxin level. 2. For her chronic obstructive pulmonary disease, I do believe she might have a mild exacerbation right now. She is not hypoxic. She does have some increased sputum. She has received Solu-Medrol 125 mg in the ED. We will continue low dose Solu-Medrol q.8 hours, add DuoNeb, her regular home medications and flutter valve. At this point, I am concerned for the shortness of breath and increased cough. She also had some chest pain earlier in the day and is complaining of calf pain. Given her history in November of this year of diagnosis of May-Thurner syndrome, at that point she was sent out to [facility] and had some extensive intervention because she had compression of her iliac vein and she was evaluated for thrombolysis versus other more invasive interventions. The patient is unsure which intervention she had when she went out to [facility]. It does appear that she did have an IVC filter placed; however, she has not been on anticoagulation. Because of bleeding in her colostomy at her last admission, she was not left on therapeutic anticoagulation, so my concern at this point is that she may have new deep venous thrombosis forming, may have also had a pulmonary embolism. For these reasons, we will re- ultrasound her legs bilaterally and look for any new occlusion given the tenderness that she is having and also do a V/Q scan of her chest. Again, the patient is allergic to CONTRAST. We would hold off on a CTA at this point. These results are still pending. 3. For her diabetes mellitus, we will continue her on her oral meds, place her on lispro sliding scale and a consistent carbohydrate diet. 4. For her history of heart failure, we will continue her torsemide, beta- bao and aspirin. 5. For her neuropathic pain, we will continue her on Lyrica and pain medications as needed. 6. DVT prophylaxis: I would hold off on using any anticoagulation on her at this time because of her recent issues with bleeding. She also is not a candidate for SCDs given the pain in her calves. I think this will have to be readdressed as her workup continues to develop. 7. Code status: The patient is a full code. 8. Diet: She can have a consistent carbohydrate diet, heart healthy. I would restrict her carbohydrates to 2 servings per meal per day given now that the patient is on Solu-Medrol and may have high sugars. 9. Disposition: For now, the patient will be inpatient on telemetry. Again, I think with the findings of her ultrasound and V/Q scan, her status may change. If she has additional disease in the lower extremities, I think it would be prudent to send the patient to [facility] to Vascular Surgery to have her reevaluated. In the meantime, if that is negative, we will continue to treat her for her chronic obstructive pulmonary disease exacerbation and provide supportive care. The patient appears euvolemic at this time. She did receive some IV fluids in the ED. We will monitor her closely for fluid overload. In the meantime, we will not provide IV fluids. This plan of care has been discussed with Dr. Rodger Cuevas, my attending for today. The rest of the patient's course will be determined by further diagnostics, laboratories and any other input from other providers as warranted during this admission. TIME SPENT: I have spent an excess of 60 minutes evaluating the patient, her chart, her history, her previous hospitalization, discussion, and plan of care with all providers involved in this patient. ELISSA MYRICK, AMY [id number]/[facility] #: [id number] SERENA
[2018-02-22] MEDS: HYDROcodone/ACETAMIN 5-325 MG* 1 TAB PO PRN ×3 (00:25→17:25)
[2018-02-22] MEDS: methylPREDNISolone SOD 40 MG* 1 ML VIAL IV SCH ×3 (02:40→17:25)
--- NOTE | 2018-02-22 03:20 | PN ---
Progress Note - Progress Note Date of Service: 02/22/18 Note: Paged patient remains in Afib but HR in 50-60s. Will d/c diltiazem drip and order her PO dose of diltiazem but start with short acting in case it needs to be titrated up.
[2018-02-22] MEDS ORDERED: Diltiazem TAB* 60 MG PO SCH (04:00)
[2018-02-22 06:54] LABS: ABS Basophils 0 10^3/ul (0-0.2); ABS Eosinophils 0 10^3/ul (0-0.6); ABS Lymphocytes 1.1 10^3/ul (1.0-4.8); ABS Monocytes 0.1 10^3/ul (0-0.8); ABS Neutrophils 5.2 10^3/ul (1.5-7.7); ABS Nucleated RBC 0 10^3/ul; Eosinophil % 0.1 % (0-6); Hematocrit 31 % (35-47); Hemoglobin 9.7 g/dl (12.0-16.0); Lymphocyte % 17.2 % (25-47); Mean Corpuscular HGB Conc 31 g/dl (31-36); Mean Corpuscular Hemoglobin 23 pg (27-31); Mean Corpuscular Volume 76 fL (80-97); Mean Platelet Volume 8.6 um3 (7.4-10.4); Nucleated Red Blood Cells % 0; Platelet Count 194 10^3/ul (150-450); Red Blood Count 4.16 10^6/ul (4.00-5.40); Red Cell Distribution Width 19 % (10.5-15); White Blood Count 6.4 10^3/ul (3.5-10.8)
[2018-02-22 07:24] LABS: EGFR Non-African American 77.1 (>60)
[2018-02-22] MEDS: Levothyroxine TAB* 175 MCG TAB PO SCH (08:06)
[2018-02-22] MEDS: Tiotropium CAP.INH* CAP.INH/18 MCG (USE ORDER SET !) INH SCH (08:15)
[2018-02-22] MEDS: glipiZIDE TAB* 5 MG PO SCH (08:38)
[2018-02-22] MEDS: Torsemide TAB* 20 MG PO SCH (08:38)
[2018-02-22] MEDS: guaiFENesin ER TAB 600 MG PO SCH ×2 (08:38→21:18)
[2018-02-22] MEDS: Insulin LISPRO* 1 UNITS UNIT SUBCUT SCH ×4 (08:38→21:17)
[2018-02-22] MEDS: Sertraline* 100 MG TAB PO SCH (08:39)
[2018-02-22] MEDS: metFORMIN* 500 MG TAB PO SCH (08:39)
[2018-02-22] MEDS: Omeprazole CAP* 20 MG PO SCH (08:39)
[2018-02-22] MEDS: Ezetimibe TAB* 10 MG PO SCH (08:39)
[2018-02-22] MEDS: Diltiazem CD CAP* 240 MG PO SCH (08:39)
[2018-02-22] MEDS: Aspirin EC TAB* 81 MG TAB.EC PO SCH (08:39)
[2018-02-22] MEDS: Benzonatate CAP* 100 MG PO SCH ×2 (08:39→21:18)
[2018-02-22] MEDS ORDERED: Digoxin TAB* 0.25 MG PO SCH (09:00)
[2018-02-22] MEDS ORDERED: Metoprolol Succinate XL TAB* 25 MG PO SCH (09:00)
[2018-02-22] MEDS ORDERED: LORazepam INJ* 2 MG/ML 1 ML VIAL IV PUSH ONE (09:07)
--- NOTE | 2018-02-22 13:38 | RAD ---
INDICATION: Shortness of breath evaluate for pulmonary embolism. Comparison: Comparison is made with a prior lung perfusion ventilation scan from October 19, 2017, prior chest x-ray study from October 19, 2017 and a chest x-ray study from February 22, 2018. Technique: The patient was given 15.2 mCi of xenon-133 via a rebreathing mask. The lungs were imaged in both the anterior and posterior projections. Subsequently, the patient received 6.6 mCi of technetium 99 MAA intravenously and the lungs were imaged in 8 projections. FINDINGS: There is a single moderate matched perfusion defect present posteriorly at the left lung base. No other focal perfusion abnormalities are seen. The prior chest x-ray study demonstrates mild cardiomegaly and a small left pleural effusion and left basilar infiltrate. IMPRESSION: LOW PROBABILITY FOR PULMONARY EMBOLISM.
--- NOTE | 2018-02-22 13:45 | RAD ---
HISTORY: R/O PE COMPARISONS: February 21, 2018 VIEWS: 4: Frontal dual-energy and lateral views of the chest. FINDINGS: CARDIOMEDIASTINAL SILHOUETTE: The cardiac silhouette is enlarged. A prosthetic heart valve is noted. The cardiomediastinal silhouette is otherwise normal. ALESSIO: The alessio are normal. PLEURA: There is a small left pleural effusion. LUNG PARENCHYMA: There is hyperinflation with flattening of the diaphragm and expansion of the AP diameter of the chest. ABDOMEN: The upper abdomen is clear. There is no subphrenic gas. An IVC filter is noted. BONES AND SOFT TISSUES: The patient is status post median sternotomy. OTHER: None. IMPRESSION: 1. CARDIOMEGALY. 2. COPD. 3. SMALL LEFT PLEURAL EFFUSION.
[2018-02-22] MEDS ORDERED: Furosemide IV* 10 MG/ML VIAL (40 MG) IV ONE (15:50)
--- NOTE | 2018-02-22 17:18 | PN ---
Subjective Date of Service: 02/22/18 Interval History: pt stated that after her stay at [facility] (11/2017) and left LE thrombectomy and stenting she was on Xarelto x 1 month then did not get a refill and stopped talking it. Noted leg edema and 2 days ago started experiencing SOB. Today feels much better. left leg is painful Objective Active Medications: Hydrocodone Bitart/Acetaminophen ([place] 5-325 Tab*) 1 tab PO Q4H PRN PRN Reason: PAIN Last Admin: 02/22/18 08:39 Dose: 1 tab Albuterol (Ventolin 2.5 Mg/3 Ml Neb.Lorie*) 2.5 mg INH Q4H PRN PRN Reason: SOB/WHEEZING Albuterol (Ventolin Hfa Inhaler*) 2 puff INH Q4H PRN PRN Reason: SOB/WHEEZING Albuterol/Ipratropium (Duoneb (Albuterol 2.5 Mg/Ipratropium 0.5 Mg)) 1 neb INH Q6H PRN PRN Reason: SOB/WHEEZING Alprazolam (Xanax Tab*) 0.25 mg PO TID PRN PRN Reason: ANXIETY Aspirin (Aspirin Ec Tab*) 81 mg PO DAILY [facility] Last Admin: 02/22/18 08:39 Dose: 81 mg Atorvastatin Calcium (Lipitor*) 80 mg PO BEDTIME [facility] Last Admin: 02/21/18 20:58 Dose: 80 mg Benzonatate (Tessalon Cap*) 100 mg PO BID [facility] Last Admin: 02/22/18 08:39 Dose: 100 mg Dextrose (D50w Syringe 50 Ml*) 12.5 gm IV PUSH .FOR FS < 60 - SS PRN PRN Reason: FS < 60 Digoxin (Lanoxin Tab*) 0.25 mg PO DAILY [facility] Last Admin: 02/22/18 08:39 Dose: 0.25 mg Diltiazem HCl (Cardizem Cd Cap*) 240 mg PO DAILY [facility] Last Admin: 02/22/18 08:39 Dose: 240 mg Ezetimibe (Zetia Tab*) 10 mg PO DAILY [facility] Last Admin: 02/22/18 08:39 Dose: 10 mg Glipizide (Glucotrol Tab*) 2.5 mg PO DAILY [facility] Last Admin: 02/22/18 08:38 Dose: 2.5 mg Guaifenesin (Mucinex*) 600 mg PO BID [facility] Last Admin: 02/22/18 08:38 Dose: 600 mg Insulin Human Lispro (Humalog*) 0 units SUBCUT ACHS [facility]; Protocol Last Admin: 02/22/18 13:33 Dose: 3 unit Levothyroxine Sodium (Synthroid Tab*) 175 mcg PO 0600 [facility] Last Admin: 02/22/18 08:06 Dose: Not Given Metformin HCl (Glucophage*) 500 mg PO BID [facility] Last Admin: 02/22/18 08:39 Dose: 500 mg Methylprednisolone Sodium Succinate (Solu-Medrol 40 Mg) 40 mg IV Q8H [facility] Last Admin: 02/22/18 10:51 Dose: 40 mg Metoprolol Succinate (Toprol Xl Tab*) 75 mg PO DAILY [facility] Last Admin: 02/22/18 08:38 Dose: 75 mg Mometasone Furoate (Asmanex 220 Mcg Mdi *) 2 puff INH QPM [facility] Last Admin: 02/21/18 18:31 Dose: 2 puff Omeprazole (Prilosec Cap*) 40 mg PO DAILY [facility] Last Admin: 02/22/18 08:39 Dose: 40 mg Pregabalin (Lyrica Cap(*)) 50 mg PO BEDTIME [facility] Last Admin: 02/21/18 20:59 Dose: 50 mg Rivaroxaban (Xarelto(*)) 20 mg PO DAILY [facility] Sertraline HCl (Zoloft*) 200 mg PO DAILY [facility] Last Admin: 02/22/18 08:39 Dose: 200 mg Tiotropium [place] (Spiriva Cap.Inh*) 1 cap INH DAILY [facility] Last Admin: 02/22/18 08:15 Dose: 1 cap Torsemide (Demadex*) 40 mg PO DAILY [facility] Last Admin: 02/22/18 08:38 Dose: 40 mg Trazodone HCl (Desyrel Tab*) 100 mg PO BEDTIME [facility] Last Admin: 02/21/18 20:59 Dose: 100 mg Vital Signs - 8 hr 02/22/18 02/22/18 02/22/18 10:51 11:34 12:33 Temperature 97.2 F Pulse Rate 77 Respiratory 20 18 18 Rate Blood Pressure 120/76 (mmHg) O2 Sat by Pulse 99 Oximetry 10/03/18 10/03/18 10/03/18 13:38 15:13 15:26 Temperature 97.4 F Pulse Rate 91 Respiratory 18 16 Rate Blood Pressure 104/72 (mmHg) O2 Sat by Pulse 95 Oximetry Oxygen Devices in Use Now: Nasal Cannula Appearance: 67 yo F in NAD, AAOx3 Eyes: No Scleral Icterus, PERRLA Ears/Nose/Mouth/Throat: NL Teeth, Lips, Gums, Mucous Membranes Moist Neck: NL Appearance and Movements; NL JVP, Trachea Midline Respiratory: Symmetrical Chest Expansion and Respiratory Effort, - - faint bibasiliar crackles Cardiovascular: - - irregular Abdominal: - - colostomy in place, brown loose stool in bag noted Lymphatic: No Cervical Adenopathy Extremities: No Clubbing, Cyanosis, - - +1 pitting pedal edema b/l, left calf tender to palpation Skin: No Rash or Ulcers, No Nodules or Sclerosis Neurological: Alert and Oriented x 3, NL Muscle Strength and Tone Result Diagrams: 02/24/18 06:17 02/24/18 06:17 Microbiology and Other Data: Microbiology 02/21/18 13:48 Aerobic Blood Culture - Preliminary Blood Venous No Growth Day 1 Anaerobic Blood Culture - Preliminary No Growth Day 1 02/21/18 13:53 Aerobic Blood Culture - Preliminary Blood Venous No Growth Day 1 Anaerobic Blood Culture - Preliminary No Growth Day 1 02/21/18 13:08 Gram Stain - Final Sputum Expectorated Assess/Plan/Problems-Billing Assessment:Mrs. 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 - Patient Problems (1) Acute on chronic diastolic heart failure Comment: Pt appears relatively euvolemic today. Continue current dose of torsemide. No need to repeat CXR as pt is much improved today. (2) Atrial fibrillation with RVR Comment: HR is generally better controlled though she does still have periods where her HR is markedly elevated (with coughing or exertions). Metoprolol tartrate incresed to 100mg qAM. Continue diltiazem CD 240mg daily. Xarelto started this admission. Will need to very cautiously watch her colostomy for signs of bleeding. (3) COPD (chronic obstructive pulmonary disease) Comment: No signs of exacerbation at this time. Continue prn tessalon and mucinex. Start to taper prednisone. Continue spiriva, asmanex and prn albuterol. 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 S/p IVC filter placement in 11/2017 - Pt's xarelto restarted yesterday (reccomended by [facility]). Per patient she'd run out of prescription and had not been taking. - V/Q scan yesterday negative for PE - Pain at baseline per pt. Control with PRN [place] and home gabapentin (5) Lower GI bleed Comment: h/o GI bleed with colonoscopy showing "minimal AVMs" and no obvious source of bleeding in 11/2017 no evidence of current bleeding. (6) DM2 (diabetes mellitus, type 2) Comment: - Glucose today 86-255, also in the setting of steroids. Last A1c 7.0% in 10/2017. Continue sliding scale lispro and home glipizide. Metformin currently being held. (7) DVT prophylaxis Comment: Xarelto Status and Disposition: inpatient
[2018-02-22] MEDS: Mometasone 220 MCG MDI INH SCH (17:25)
[2018-02-22] MEDS: Rivaroxaban TAB(*) 20 MG TAB PO SCH (17:25)
[2018-02-22] MEDS: Atorvastatin* 80 MG TAB PO SCH (21:18)
[2018-02-22] MEDS: Pregabalin CAP(*) 50 MG PO SCH (21:18)
[2018-02-22] MEDS: traZODone TAB* 100 MG PO SCH (21:18)
[2018-02-23] MEDS: Levothyroxine TAB* 175 MCG TAB PO SCH (06:29)
[2018-02-23 06:48] LABS: Hematocrit 31 % (35-47); Hemoglobin 9.6 g/dl (12.0-16.0); Mean Corpuscular HGB Conc 31 g/dl (31-36); Mean Corpuscular Hemoglobin 24 pg (27-31); Mean Corpuscular Volume 76 fL (80-97); Mean Platelet Volume 8.6 um3 (7.4-10.4); Platelet Count 190 10^3/ul (150-450); Red Blood Count 4.09 10^6/ul (4.00-5.40); Red Cell Distribution Width 19 % (10.5-15); White Blood Count 11.7 10^3/ul (3.5-10.8)
[2018-02-23 06:57] LABS: EGFR Non-African American 60.1 (>60)
[2018-02-23] MEDS: Tiotropium CAP.INH* CAP.INH/18 MCG (USE ORDER SET !) INH SCH (08:03)
[2018-02-23] MEDS: Aspirin EC TAB* 81 MG TAB.EC PO SCH (08:52)
[2018-02-23] MEDS: Rivaroxaban TAB(*) 20 MG TAB PO SCH (08:52)
[2018-02-23] MEDS: Sertraline* 100 MG TAB PO SCH (08:52)
[2018-02-23] MEDS: Benzonatate CAP* 100 MG PO SCH ×2 (08:52→20:37)
[2018-02-23] MEDS: glipiZIDE TAB* 5 MG PO SCH (08:52)
[2018-02-23] MEDS: predniSONE TAB* 20 MG PO SCH (08:53)
[2018-02-23] MEDS: Diltiazem CD CAP* 240 MG PO SCH (08:53)
[2018-02-23] MEDS: Torsemide TAB* 20 MG PO SCH (08:53)
[2018-02-23] MEDS: Ezetimibe TAB* 10 MG PO SCH (08:53)
[2018-02-23] MEDS: guaiFENesin ER TAB 600 MG PO SCH ×2 (08:53→20:36)
[2018-02-23] MEDS: Insulin LISPRO* 1 UNITS UNIT SUBCUT SCH ×4 (08:53→20:41)
[2018-02-23] MEDS: Omeprazole CAP* 20 MG PO SCH (08:53)
--- NOTE | 2018-02-23 10:04 | PN ---
Subjective Date of Service: 02/23/18 Interval History: Of note, overnight and this AM pt experienced periods of bradycardia to high 30s -40s as well as pauses up to 3 seconds. Pt reports when heart rate drops, she gets an associated brief, sharp chest pain to the left of her sternum. No other associated symptoms of dizziness, SOB, palpitations. Pt in NAD this morning. Reports breathing is improved since admission, but still slightly worse than baseline. Cough improved since admission. Only one episode overnight compared to every hour prior to admission. Still feels more fatigued than baseline, especially when ambulating. Reports bilateral calf pain. Endorses eye itchiness as she has not been taking her home eye drops. Objective Active Medications: Hydrocodone Bitart/Acetaminophen ([place] 5-325 Tab*) 1 tab PO Q4H PRN PRN Reason: PAIN Last Admin: 02/22/18 17:25 Dose: 1 tab Albuterol (Ventolin 2.5 Mg/3 Ml Neb.Lorie*) 2.5 mg INH Q4H PRN PRN Reason: SOB/WHEEZING Albuterol (Ventolin Hfa Inhaler*) 2 puff INH Q4H PRN PRN Reason: SOB/WHEEZING Albuterol/Ipratropium (Duoneb (Albuterol 2.5 Mg/Ipratropium 0.5 Mg)) 1 neb INH Q6H PRN PRN Reason: SOB/WHEEZING Alprazolam (Xanax Tab*) 0.25 mg PO TID PRN PRN Reason: ANXIETY Aspirin (Aspirin Ec Tab*) 81 mg PO DAILY [facility] Last Admin: 02/23/18 08:52 Dose: 81 mg Atorvastatin Calcium (Lipitor*) 80 mg PO BEDTIME J[facility] Last Admin: 02/22/18 21:18 Dose: 80 mg Benzonatate (Tessalon Cap*) 100 mg PO BID [facility] Last Admin: 02/23/18 08:52 Dose: 100 mg Dextrose (D50w Syringe 50 Ml*) 12.5 gm IV PUSH .FOR FS < 60 - SS PRN PRN Reason: FS < 60 Diltiazem HCl (Cardizem Cd Cap*) 240 mg PO DAILY [facility] Last Admin: 02/23/18 08:53 Dose: 240 mg Ezetimibe (Zetia Tab*) 10 mg PO DAILY [facility] Last Admin: 02/23/18 08:53 Dose: 10 mg Glipizide (Glucotrol Tab*) 2.5 mg PO DAILY [facility] Last Admin: 02/23/18 08:52 Dose: 2.5 mg Guaifenesin (Mucinex*) 600 mg PO BID [facility] Last Admin: 02/23/18 08:53 Dose: 600 mg Insulin Human Lispro (Humalog*) 0 units SUBCUT ACHS [facility]; Protocol Last Admin: 02/23/18 08:53 Dose: 3 unit Levothyroxine Sodium (Synthroid Tab*) 175 mcg PO 0600 [facility] Last Admin: 02/23/18 06:29 Dose: 175 mcg Mometasone Furoate (Asmanex 220 Mcg Mdi *) 2 puff INH QPM [facility] Last Admin: 02/22/18 17:25 Dose: 2 puff Omeprazole (Prilosec Cap*) 40 mg PO DAILY [facility] Last Admin: 02/23/18 08:53 Dose: 40 mg Prednisone (Deltasone Tab*) 40 mg PO DAILY [facility] Last Admin: 02/23/18 08:53 Dose: 40 mg Pregabalin (Lyrica Cap(*)) 50 mg PO BEDTIME [facility] Last Admin: 02/22/18 21:18 Dose: 50 mg Rivaroxaban (Xarelto(*)) 20 mg PO DAILY [facility] Last Admin: 02/23/18 08:52 Dose: 20 mg Sertraline HCl (Zoloft*) 200 mg PO DAILY [facility] Last Admin: 02/23/18 08:52 Dose: 200 mg Tiotropium [place] (Spiriva Cap.Inh*) 1 cap INH DAILY [facility] Last Admin: 02/23/18 08:03 Dose: 1 cap Torsemide (Demadex*) 40 mg PO DAILY [facility] Last Admin: 02/23/18 08:53 Dose: 40 mg Trazodone HCl (Desyrel Tab*) 100 mg PO BEDTIME [facility] Last Admin: 02/22/18 21:18 Dose: 100 mg Vital Signs - 8 hr 02/23/18 02/23/18 02/23/18 03:40 07:42 07:51 Temperature 97.4 F 97.5 F Pulse Rate 90 26 50 Respiratory 16 18 Rate Blood Pressure 101/56 115/58 (mmHg) O2 Sat by Pulse 97 99 Oximetry 02/23/18 08:04 Temperature Pulse Rate 60 Respiratory 16 Rate Blood Pressure (mmHg) O2 Sat by Pulse 99 Oximetry Oxygen Devices in Use Now: Nasal Cannula - 2L NC Eyes: No Scleral Icterus, PERRLA Ears/Nose/Mouth/Throat: NL Teeth, Lips, Gums, Clear Oropharnyx, Mucous Membranes Moist Neck: NL Appearance and Movements; NL JVP, Trachea Midline Respiratory: Symmetrical Chest Expansion and Respiratory Effort, Clear to Auscultation Cardiovascular: NL Sounds; No Murmurs; No JVD, - - Irregularly irregular rhythm , HR 50s Abdominal: - - Bowel sounds WNL x4. Abdomen soft and distended. No tenderness. Colostomy draining with pink stoma. Extremities: No Clubbing, Cyanosis, - - Non-pitting bilateral lower extremity edema Skin: - - Skin changes of chronic venous insufficiency on bilateral lower extremeities Neurological: Alert and Oriented x 3, NL Muscle Strength and Tone Result Diagrams: 02/23/18 06:20 02/23/18 06:20 Microbiology and Other Data: Microbiology 02/21/18 13:48 Aerobic Blood Culture - Preliminary Blood Venous No Growth Day 1 Anaerobic Blood Culture - Preliminary No Growth Day 1 02/21/18 13:53 Aerobic Blood Culture - Preliminary Blood Venous No Growth Day 1 Anaerobic Blood Culture - Preliminary No Growth Day 1 02/21/18 13:08 Gram Stain - Final Sputum Expectorated Assess/Plan/Problems-Billing Assessment:Mrs. Ziegler is a 67yo F with PMH of obesity, Afib, COPD on home O2 2 liters/min, PVF, GERD, diastolic CHF with EF 55%, chronic pain, HTN, DVT, PE, RYAN (home CPAP), diabetes, bowel obstruction requiring colostomy, CAD s/p CABG, s/p AVR (porcine), HLD, hypothyroidism, 2017 admission for large LLQ mass/ probable abscess, h/o GI AVM's and GI bleed who presented to ED with c/o chest pain and dyspnea, found to have COPD exacerbation and rapid Afib. Rate controlled with diltiazem, but now with new periods of bradycardia down to 30s- 40s. - Patient Problems (1) Acute on chronic diastolic heart failure Current Visit: No Status: Acute Code(s): I50.33 - ACUTE ON CHRONIC DIASTOLIC (CONGESTIVE) HEART FAILURE SNOMED Code(s): 074749589 Comment: - Shortness of breath improved since admission. No rales or JVD appreciated. Non-pitting edema in bilateral lower extremeties. Negative 3.2L today and weight down 4lbs since yesterday in the setting of 40mg IV lasix - Resume pt's home toresemide 40mg PO daily today, however pt reports she notices this working less effectively than it used to, so will closely monitor volume status on PO medicationa and consult with cardiology about diuretic regimen going forward. (2) Atrial fibrillation with RVR Current Visit: No Status: Acute Code(s): I48.91 - UNSPECIFIED ATRIAL FIBRILLATION SNOMED Code(s): 185251202582769 Comment: - No longer with rapid rate however afib is persistant. Rate controlled with Digoxin, Diltiazem, and Metoprolol, however has been having pauses (max 3 sec, pt has hx of this in previous hospitalizations) as well as periods of bradycardia down to 30s-40s. - Pt has been diagnosed with RYAN and has CPAP at home. Pauses could be in the setting of hypoxia, however overnight pulse ox did not reflect desaturations - Cardiology consulted: feels tachycardia driven by COPD exacerbation, anemia, and digoxin and steroid use and should resolve as general condition improves. To address the bradycardia, we will d/c digoxin and use metoprolol tartate instead of succinate at 50mg starting tomorrow. Pacemaker only indicated in awake asymptomatic Afib patient who has pauses of 5 seconds or greater. - Anticoagulated with xarelto. Also has IVC filter. (3) COPD (chronic obstructive pulmonary disease) Current Visit: No Status: Acute Code(s): J44.9 - CHRONIC OBSTRUCTIVE PULMONARY DISEASE, UNSPECIFIED SNOMED Code(s): 06416826 Comment: - Acute exacerbation improving with treatment. No signs of wheezing on exam. Cough is improving. 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 S/p IVC filter placement in 11/2017 - Pt's xarelto restarted yesterday (reccomended by [facility]). Per patient she'd run out of prescription and had not been taking. - V/Q scan yesterday negative for PE - Pain control with PRN [place] (5) DM2 (diabetes mellitus, type 2) Current Visit: No Status: Chronic Comment: - Glucose today 140-152. Last A1c 7.0% in 10/2017. Continue sliding scale lispro and home glipizide. Metformin currently being held. (6) HLD (hyperlipidemia) Current Visit: No Status: Chronic Code(s): E78.5 - HYPERLIPIDEMIA, UNSPECIFIED SNOMED Code(s): 71211046 Comment: - Continue lipitor 80mg and ezitimbe (7) Hypothyroidism (acquired) Current Visit: No Status: Chronic Code(s): E03.9 - HYPOTHYROIDISM, UNSPECIFIED SNOMED Code(s): 692799102 Comment: - Continue synthroid 175mcg daily. TSH pending (8) DVT prophylaxis Current Visit: No Status: Acute Code(s): TYU3676 - SNOMED Code(s): 394212382 Comment: - Pt anticoagulated with Xarelto (9) Full code status Current Visit: No Status: Acute Code(s): Z78.9 - OTHER SPECIFIED HEALTH STATUS SNOMED Code(s): 116064094 Status and Disposition: Inpatient. Anticipate discharge to home when medically stable. Attending: Sena Schafer
--- NOTE | 2018-02-23 10:56 | CONSULT ---
Subjective Date of Service: 02/23/18 Interval History: Admission Date: 02/21/18 Consult date 02/23/2018 Provider: Hospitalist WARREN [facility]omns Risk Specialist: Dr. Sanders CHIEF COMPLAINT: Shortness of breath. Reason for consult: Atrial fibrillation heart rate control HISTORY OF PRESENT ILLNESS: Mercy Ziegler is 67-year-old woman admitted with dyspnea and cough and tachycardia admitted with COPD exacerbation. Her chronic Afib HR was initially high related to this. She was given IV diltiazem and treated for COPD exacerbation. She had an asymptomatic 3.4 second pause while awake today. She will occasionally be lightheaded when stands up. She denies any syncope. She had this same issue during a prior admission earlier this year for influenza and medications for rate control are currently digoxin 0.25 mg with an admission level of 0.5, diltiazem 240 mg po daily and long-acting toprol 75 mg po daily ALLERGIES: To SHELLFISH, IODINE, and CELEBREX, which all caused hives. PAST MEDICAL HISTORY: AFib not on anticoagulation history of bowel obstruction with resection and colostomy; HFpEF CABG/AVR 2010 chronic hypoxic respiratory failure, on 2 L of oxygen continuous secondary to COPD; anxiety; diabetes mellitus type 2; hypertension; depression; chronic pain; May-Thurner syndrome; history of lower GI bleed; history in the past of C. diff colitis. ALLERGIES: The patient is allergic to BEES, SHELLFISH, IODINE-BASED CONTRAST, and CELECOXIB; all of which gives her hives and rash. FAMILY HISTORY: Noncontributory. SOCIAL HISTORY: The patient is a former smoker. The patient denies any alcohol use. Denies any illicit drug use. She lives at home with her daughter, Stephanie, who is her healthcare proxy and also her aide in the home. Her number is [phone]. Medications Active Medications: Hydrocodone Bitart/Acetaminophen ([place] 5-325 Tab*) 1 tab PO Q4H PRN PRN Reason: PAIN Last Admin: 02/22/18 17:25 Dose: 1 tab Albuterol (Ventolin 2.5 Mg/3 Ml Neb.Ana*) 2.5 mg INH Q4H PRN PRN Reason: SOB/WHEEZING Albuterol (Ventolin Hfa Inhaler*) 2 puff INH Q4H PRN PRN Reason: SOB/WHEEZING Albuterol/Ipratropium (Duoneb (Albuterol 2.5 Mg/Ipratropium 0.5 Mg)) 1 neb INH Q6H PRN PRN Reason: SOB/WHEEZING Alprazolam (Xanax Tab*) 0.25 mg PO TID PRN PRN Reason: ANXIETY Aspirin (Aspirin Ec Tab*) 81 mg PO DAILY [facility] Last Admin: 02/23/18 08:52 Dose: 81 mg Atorvastatin Calcium (Lipitor*) 80 mg PO BEDTIME [facility] Last Admin: 02/22/18 21:18 Dose: 80 mg Benzonatate (Tessalon Cap*) 100 mg PO BID [facility] Last Admin: 02/23/18 08:52 Dose: 100 mg Dextrose (D50w Syringe 50 Ml*) 12.5 gm IV PUSH .FOR FS < 60 - SS PRN PRN Reason: FS < 60 Diltiazem HCl (Cardizem Cd Cap*) 240 mg PO DAILY [facility] Last Admin: 02/23/18 08:53 Dose: 240 mg Ezetimibe (Zetia Tab*) 10 mg PO DAILY [facility] Last Admin: 02/23/18 08:53 Dose: 10 mg Glipizide (Glucotrol Tab*) 2.5 mg PO DAILY [facility] Last Admin: 02/23/18 08:52 Dose: 2.5 mg Guaifenesin (Mucinex*) 600 mg PO BID [facility] Last Admin: 02/23/18 08:53 Dose: 600 mg Insulin Human Lispro (Humalog*) 0 units SUBCUT ACHS [facility]; Protocol Last Admin: 02/23/18 08:53 Dose: 3 unit Levothyroxine Sodium (Synthroid Tab*) 175 mcg PO 0600 [facility] Last Admin: 02/23/18 06:29 Dose: 175 mcg Mometasone Furoate (Asmanex 220 Mcg Mdi *) 2 puff INH QPM [facility] Last Admin: 02/22/18 17:25 Dose: 2 puff Omeprazole (Prilosec Cap*) 40 mg PO DAILY [facility] Last Admin: 02/23/18 08:53 Dose: 40 mg Prednisone (Deltasone Tab*) 40 mg PO DAILY [facility] Last Admin: 02/23/18 08:53 Dose: 40 mg Pregabalin (Lyrica Cap(*)) 50 mg PO BEDTIME [facility] Last Admin: 10/03/18 21:18 Dose: 50 mg Sertraline HCl (Zoloft*) 200 mg PO DAILY [facility] Last Admin: 02/23/18 08:52 Dose: 200 mg Tiotropium [place] (Spiriva Cap.Inh*) 1 cap INH DAILY [facility] Last Admin: 02/23/18 08:03 Dose: 1 cap Torsemide (Demadex*) 40 mg PO DAILY [facility] Last Admin: 02/23/18 08:53 Dose: 40 mg Trazodone HCl (Desyrel Tab*) 100 mg PO BEDTIME [facility] Last Admin: 02/22/18 21:18 Dose: 100 mg Home Medications: Atorvastatin* [Lipitor 80 MG*] 80 mg PO BEDTIME 10/25/12 [History Confirmed 07/10] Sertraline* [Zoloft*] 200 mg PO DAILY 10/25/12 [History Confirmed 02/21/18] Aspirin EC TAB* [Ecotrin EC Low Dose 81 MG*] 81 mg PO DAILY 04/16/15 [History Confirmed 02/21/18] Tiotropium CAP.INH* [Spiriva CAP.INH*] 1 cap.inh INH DAILY 05/12/15 [History Confirmed 02/21/18] ALPRAZolam TAB* [Xanax TAB*] 0.25 mg PO TID PRN 06/25/15 [History Confirmed 07/10] traZODone TAB* [Desyrel TAB*] 100 mg PO BEDTIME 06/21/16 [History Confirmed 07/10] Ezetimibe TAB* [Zetia TAB*] 10 mg PO DAILY 08/22/16 [History Confirmed 02/21/18] Albuterol HFA INHALER* [Ventolin HFA Inhaler*] 2 puff INH Q4H PRN 08/03/17 [ History Confirmed 02/21/18] Digoxin TAB* [Lanoxin TAB*] 0.25 mg PO DAILY #30 tab 09/21/17 [Rx Confirmed 07/10] Diltiazem CD CAP* [Cardizem CD CAP*] 240 mg PO DAILY 10/19/17 [History Confirmed 02/21/18] Metoprolol Succinate XL TAB* [Toprol XL TAB*] 75 mg PO DAILY 10/19/17 [History Confirmed 02/21/18] Pregabalin CAP(*) [Lyrica CAP(*)] 50 mg PO BEDTIME #30 cap MDD 50mg 10/22/17 [ Rx Confirmed 02/21/18] Torsemide TAB* [Demadex 20 MG*] 40 mg PO DAILY #60 tab 10/23/17 [Rx Confirmed ] Omeprazole CAP* [Prilosec CAP* 20 MG] 40 mg PO DAILY 11/29/17 [History Confirmed 02/21/18] Albuterol 2.5MG/3ML (0.083%)* [Ventolin 2.5 MG/3 ML NEB.ANA*] 2.5 mg INH Q4H PRN 02/21/18 [History Confirmed 02/21/18] EPINEPHrine [Epipen 2-[place]] 0.3 mg IM ONCE PRN 02/21/18 [History Confirmed ] Fluticasone HFA 110 mcg(NF) [Flovent HFA 110 mcg(NF)] 2 puff INH BID 02/21/18 [ History Confirmed 02/21/18] HYDROcodone/ACETAMIN 5-325 MG* [[place] 5-325 TAB*] 1 tab PO Q4H PRN 02/21/18 [ History Confirmed 02/21/18] Lactose-Reduced Food [Ensure Liquid] 237 ml PO DAILY 02/21/18 [History Confirmed 02/21/18] Levothyroxine TAB* [Synthroid TAB*] 175 mcg PO 0700 02/21/18 [History Confirmed 02/21/18] glipiZIDE TAB* [Glucotrol TAB*] 2.5 mg PO DAILY 02/21/18 [History Confirmed 07/10] metFORMIN* [Glucophage 500 MG TAB *] 500 mg PO BID 02/21/18 [History Confirmed 02/21/18] Review of Systems - Measurements Intake and Output: Intake and Output Last 24 Hours 02/21/18 02/22/18 02/23/18 02/24/18 06:59 06:59 06:59 06:59 Intake Total 2570.6 520 360 Output Total 525 3750 Balance 2045.6 -3230 360 Weight 236 lb 12.8 oz 228 lb 12.8 oz Intake: IV Fluids 2000 Medicated IV 40.6 GEN - Diltiazem/Cardizem 40.6 Oral 530 520 360 Output: Urine 525 3750 Other: # Bowel Movements 0 0 - Review of Systems Constitutional Symptoms: Negative: Weakness, Fatigue Dermatology: Negative: Rash, Skin Lesions HEENT: Negative: Change in Hearing, Vertigo Eyes: Negative: Change in Vision, Double Vision Thyroid: Negative: Cold Intolerance, Heat Intolerance, Weight Loss, Weight Gain Pulmonary: Positive: Cough, Sputum, Wheezing, Respiratory Distress, Shortness of Breath, Exercise Intolerance, Home Oxygen Cardiology: Positive: Shortness of Breath, Swelling of Ankles Negative: Faintness, Syncope, Claudication, Paroxysmal Nocturnal Dyspnea, Orthopnea Gastroenterology: Negative: Abdominal Pain, Nausea, Vomiting, Anorexia Genital - Urinary: Negative: Dysuria, Hematuria Musculoskeletal: Negative: Joint Pain, Joint Stiffness Endocrinology: Positive: Obesity, Diabetes Negative: Polydipsia, Polyuria Hematologic/Lymphatic: Positive: Anemia, Use of Antiplatelet Drugs Negative: Use of Anticoagulant, Other Neurology: Negative: Change in Balancing, Change in Coordination, Change in Memory, Change in Speech, Change in Sphincter Function, Change in Walking Psychiatry: Negative: Unusual Anxiety, Suicidal Ideation Allergic/Immunologic: Negative: Hx HIV, Immunocompromise Review of Systems Statement: All other review of systems negative, unless stated above. Objective Vital Signs: Temp Pulse Resp BP Pulse Ox 97.5 F 60 18 115/58 99 02/23/18 07:42 02/23/18 08:04 02/23/18 10:04 02/23/18 07:42 02/23/18 08:04 Oxygen Devices in Use Now: Nasal Cannula - 2L NC Appearance: chronically ill appearing, pleasant Ears/Nose/Mouth/Throat: Clear Oropharnyx, Mucous Membranes Moist Neck: NL Appearance and Movements; NL JVP, Trachea Midline Respiratory: - - mild increased work of breathing, no current wheeze Cardiovascular: - - irregularly irregular, 1/6 systolic murmur LLSB Abdominal: NL Sounds; No Tenderness; No Distention Extremities: No Clubbing, Cyanosis - 1+ edema with chronic stasis changes Neurological: Alert and Oriented x 3 Laboratory Results: 02/23/18 06:20 02/23/18 06:20 Total Bilirubin 0.40 mg/dL (0.2-1.0) 02/21/18 13:15 AST 13 U/L (13-39) 02/21/18 13:15 ALT 11 U/L (7-52) 02/21/18 13:15 Alkaline Phosphatase 76 U/L (34-104) 02/21/18 13:15 B-Natriuretic Peptide 310 pg/mL (-100) H 02/21/18 13:15 Total Protein 7.4 g/dL (6.4-8.9) 02/21/18 13:15 Albumin 3.4 g/dL (3.2-5.2) 02/21/18 13:15 Globulin 4.0 g/dL (2-4) 02/21/18 13:15 Albumin/Globulin Ratio 0.9 (1-3) L 02/21/18 13:15 02/21/18 13:15 Troponin I 0.02 Diagnostic Imaging: Diagnostic Imaging: Echo 08/03/2017 interpretation: moderate-severe LVH, lvef 50-55%, LA severe dilated, RV funciton mildly reduced , severe RA dilation, normal functioning aortic bioprosthesis, moderate mr EKG Data: EKG 08/03/2017: AFib/RVF difufse ST segment depression partially downsloping consider digoxin effect and/or rate related and/or ischemic changes (similar ST segment changes to ekg from 2016 which also showed atrial fibrillation) EKG Data: ekg 02/21/2018: Rapid afib 144 bpm, downsloping ST depression v4-v6 and inferior leads. ST segment changes less pronounced than 11/29/2017 when rate was controlled consider digoxin effect Assessment/Plan Mercy Ziegler is a 67 year old woman I am consulted on for long-term persistent atrial fibrillation management, LVEF normal. - Patients tachycardia is likely being driven by COPD exacerbation, anemia, high dose steroids and digoxin use (controls resting heart rate but not exertional heart rate well) - Permanent cardiac pacemaker is only indicated in an awake asymptomatic patient with atrial fibrillation of pauses 5 seconds or greater - Her rates should return to normal with further treatment of her underlying copd exacerbation and steroid taper. - Will d/c digoxin and allow a wash out and optimize BB/CCB use. We can use metoprolol tartrate as will control daytime heart rates will start with 50 mg tomorrow. - Although a pacemaker with AV node ablation may be convenient, I think it would be more to patients benefit to use temporary increase of rate control while medically ill and avoid the upfront procedure risk, half-way infection risk and potential deleterious effect of RV pacing Patient should follow up with her regular application packaging consultant, Dr. Sanders after discharge Thank you for allowing me to participate in the cardiovascular care of this patient. Please do not hesitate to contact me with questions or concerns.
[2018-02-23] MEDS: Mometasone 220 MCG MDI INH SCH (20:11)
[2018-02-23] MEDS: Atorvastatin* 80 MG TAB PO SCH (20:36)
[2018-02-23] MEDS: Pregabalin CAP(*) 50 MG PO SCH (20:37)
[2018-02-23] MEDS: HYDROcodone/ACETAMIN 5-325 MG* 1 TAB PO PRN (20:37)
[2018-02-23] MEDS: traZODone TAB* 100 MG PO SCH (20:37)
[2018-02-24] MEDS: HYDROcodone/ACETAMIN 5-325 MG* 1 TAB PO PRN ×2 (05:23→21:33)
[2018-02-24] MEDS: Levothyroxine TAB* 175 MCG TAB PO SCH (05:23)
[2018-02-24 06:41] LABS: ABS Basophils 0.1 10^3/ul (0-0.2); ABS Eosinophils 0 10^3/ul (0-0.6); ABS Monocytes 0.7 10^3/ul (0-0.8); ABS Neutrophils 8.5 10^3/ul (1.5-7.7); ABS Nucleated RBC 0 10^3/ul; Eosinophil % 0.1 % (0-6); Hematocrit 33 % (35-47); Hemoglobin 10.3 g/dl (12.0-16.0); Lymphocyte % 18.1 % (25-47); Mean Corpuscular HGB Conc 32 g/dl (31-36); Mean Corpuscular Hemoglobin 24 pg (27-31); Mean Corpuscular Volume 76 fL (80-97); Mean Platelet Volume 8.7 um3 (7.4-10.4); Nucleated Red Blood Cells % 0; Platelet Count 208 10^3/ul (150-450); Red Cell Distribution Width 19 % (10.5-15); White Blood Count 11.3 10^3/ul (3.5-10.8)
[2018-02-24 07:03] LABS: EGFR Non-African American 52.3 (>60)
[2018-02-24] MEDS: Tiotropium CAP.INH* CAP.INH/18 MCG (USE ORDER SET !) INH SCH (07:24)
[2018-02-24] MEDS: Aspirin EC TAB* 81 MG TAB.EC PO SCH (08:07)
[2018-02-24] MEDS: Rivaroxaban TAB(*) 20 MG TAB PO SCH (08:07)
[2018-02-24] MEDS: Torsemide TAB* 20 MG PO SCH (08:07)
[2018-02-24] MEDS: glipiZIDE TAB* 5 MG PO SCH (08:08)
[2018-02-24] MEDS: Omeprazole CAP* 20 MG PO SCH (08:08)
[2018-02-24] MEDS: Ezetimibe TAB* 10 MG PO SCH (08:08)
[2018-02-24] MEDS: guaiFENesin ER TAB 600 MG PO SCH ×2 (08:08→20:15)
[2018-02-24] MEDS: Diltiazem CD CAP* 240 MG PO SCH (08:08)
[2018-02-24] MEDS: Benzonatate CAP* 100 MG PO SCH ×3 (08:08→20:16)
[2018-02-24] MEDS: predniSONE TAB* 20 MG PO SCH (08:08)
[2018-02-24] MEDS: Sertraline* 100 MG TAB PO SCH (08:08)
[2018-02-24] MEDS: Insulin LISPRO* 1 UNITS UNIT SUBCUT SCH ×4 (08:51→20:22)
[2018-02-24] MEDS ORDERED: Metoprolol Tartrate TAB* 50 mg PO SCH (09:00)
--- NOTE | 2018-02-24 09:42 | PN ---
Subjective Date of Service: 02/24/18 Interval History: Pt reports increased cough and shortness of breath today compared to yesterday. She says albuterol treatment did help her SOB. When pt coughs, HR goes up to 130s, but comes back down to 80s-90s when she stops. Denies chest pain, palpitations, N/V, or any other associated symptoms. Pt also reports getting dizzy when she gets up too quickly to use the commode, but says this is her baseline. Pt also endorses bilateral leg pain and numbness/tingling that is near her baseline. Objective Active Medications: Hydrocodone Bitart/Acetaminophen ([place] 5-325 Tab*) 1 tab PO Q4H PRN PRN Reason: PAIN Last Admin: 02/24/18 05:23 Dose: 1 tab Albuterol (Ventolin 2.5 Mg/3 Ml Neb.Lorie*) 2.5 mg INH Q4H PRN PRN Reason: SOB/WHEEZING Albuterol (Ventolin Hfa Inhaler*) 2 puff INH Q4H PRN PRN Reason: SOB/WHEEZING Albuterol/Ipratropium (Duoneb (Albuterol 2.5 Mg/Ipratropium 0.5 Mg)) 1 neb INH Q6H PRN PRN Reason: SOB/WHEEZING Last Admin: 02/24/18 07:24 Dose: 1 neb Alprazolam (Xanax Tab*) 0.25 mg PO TID PRN PRN Reason: ANXIETY Aspirin (Aspirin Ec Tab*) 81 mg PO DAILY [facility] Last Admin: 02/24/18 08:07 Dose: 81 mg Atorvastatin Calcium (Lipitor*) 80 mg PO BEDTIME [facility] Last Admin: 02/23/18 20:36 Dose: 80 mg Benzonatate (Tessalon Cap*) 200 mg PO TID [facility] Last Admin: 02/24/18 08:08 Dose: 200 mg Dextrose (D50w Syringe 50 Ml*) 12.5 gm IV PUSH .FOR FS < 60 - SS PRN PRN Reason: FS < 60 Diltiazem HCl (Cardizem Cd Cap*) 240 mg PO DAILY [facility] Last Admin: 02/24/18 08:08 Dose: 240 mg Ezetimibe (Zetia Tab*) 10 mg PO DAILY [facility] Last Admin: 10/05/18 08:08 Dose: 10 mg Glipizide (Glucotrol Tab*) 2.5 mg PO DAILY [facility] Last Admin: 02/24/18 08:08 Dose: 2.5 mg Guaifenesin (Mucinex*) 600 mg PO BID [facility] Last Admin: 02/24/18 08:08 Dose: 600 mg Insulin Human Lispro (Humalog*) 0 units SUBCUT ACHS [facility]; Protocol Last Admin: 02/24/18 08:51 Dose: Not Given Levothyroxine Sodium (Synthroid Tab*) 175 mcg PO 0600 [facility] Last Admin: 02/24/18 05:23 Dose: 175 mcg Metoprolol Tartrate (Lopressor Tab*) 50 mg PO DAILY [facility] Last Admin: 02/24/18 08:08 Dose: 50 mg Mometasone Furoate (Asmanex 220 Mcg Mdi *) 2 puff INH QPM [facility] Last Admin: 02/23/18 20:11 Dose: 2 puff Omeprazole (Prilosec Cap*) 40 mg PO DAILY [facility] Last Admin: 02/24/18 08:08 Dose: 40 mg Prednisone (Deltasone Tab*) 40 mg PO DAILY [facility] Last Admin: 02/24/18 08:08 Dose: 40 mg Pregabalin (Lyrica Cap(*)) 50 mg PO BEDTIME [facility] Last Admin: 02/23/18 20:37 Dose: 50 mg Rivaroxaban (Xarelto(*)) 20 mg PO DAILY [facility] Last Admin: 02/24/18 08:07 Dose: 20 mg Sertraline HCl (Zoloft*) 200 mg PO DAILY [facility] Last Admin: 02/24/18 08:08 Dose: 200 mg Tiotropium [place] (Spiriva Cap.Inh*) 1 cap INH DAILY [facility] Last Admin: 02/24/18 07:24 Dose: 1 cap Torsemide (Demadex*) 40 mg PO DAILY [facility] Last Admin: 02/24/18 08:07 Dose: 40 mg Trazodone HCl (Desyrel Tab*) 100 mg PO BEDTIME [facility] Last Admin: 02/23/18 20:37 Dose: 100 mg Vital Signs - 8 hr 02/24/18 02/24/18 02/24/18 05:23 05:29 05:32 Temperature 97.5 F Pulse Rate 39 74 Respiratory 18 18 Rate Blood Pressure 98/82 128/77 (mmHg) O2 Sat by Pulse 100 Oximetry 02/24/18 02/24/18 02/24/18 07:27 07:44 09:15 Temperature 97.5 F Pulse Rate 101 120 Respiratory 14 16 18 Rate Blood Pressure 138/72 (mmHg) O2 Sat by Pulse 100 100 Oximetry Oxygen Devices in Use Now: Nasal Cannula - 2L, which is baseline for this patient Eyes: No Scleral Icterus, PERRLA Ears/Nose/Mouth/Throat: NL Teeth, Lips, Gums, Mucous Membranes Moist Neck: NL Appearance and Movements; NL JVP, Trachea Midline Respiratory: Symmetrical Chest Expansion and Respiratory Effort - Expiratory wheezes audible in bilateral posterior lung morrison Cardiovascular: NL Sounds; No Murmurs; No JVD, - - Irregularly irregular rhythm Abdominal: - - Abdomen soft and distended. Nontender. Bowel sound WNL. Colostomy stoma pink and raining brown liquid stool. Extremities: No Clubbing, Cyanosis, - - Bilateral lower extremity edema to knee , L (+1 pitting edema)>R (non-pitting). Bilateral lower extremity tenderness. Skin: - - Chronic venous stasis skin changes on bilateral lower extremities Neurological: Alert and Oriented x 3, NL Muscle Strength and Tone Result Diagrams: 02/24/18 06:17 02/24/18 06:17 Microbiology and Other Data: Microbiology 02/21/18 13:48 Aerobic Blood Culture - Preliminary Blood Venous No Growth Day 1 Anaerobic Blood Culture - Preliminary No Growth Day 1 02/21/18 13:53 Aerobic Blood Culture - Preliminary Blood Venous No Growth Day 1 Anaerobic Blood Culture - Preliminary No Growth Day 1 02/21/18 13:08 Gram Stain - Final Sputum Expectorated Assess/Plan/Problems-Billing Assessment:Mrs. Ziegler is a 67yo F with PMH of obesity, Afib, COPD on home O2 2 liters/min, PVF, GERD, diastolic CHF with EF 55%, chronic pain, HTN, DVT, PE, RYAN (home CPAP), diabetes, bowel obstruction requiring colostomy, CAD s/p CABG, s/p AVR (porcine), HLD, hypothyroidism, 2017 admission for large LLQ mass/ probable abscess, h/o GI AVM's and GI bleed who presented to ED with c/o chest pain and dyspnea, found to have COPD exacerbation and rapid Afib. Rate controlled with diltiazem, but now with new periods of bradycardia down to 30s- 40s. - Patient Problems (1) Acute on chronic diastolic heart failure Current Visit: No Status: Acute Code(s): I50.33 - ACUTE ON CHRONIC DIASTOLIC (CONGESTIVE) HEART FAILURE SNOMED Code(s): 697657152 Comment: - Shortness of breath had been improving, but worse today than yesterday. No rales or JVD appreciated. Non-pitting edema in bilateral lower extremeties looks slightly increased since yesterday as well. - Continue pt's home toresemide 40mg PO daily today, as pt has had adequate response yesterday, negative 1.7L yesterday. - CXR from admission did not show pulmonary edema, though it did show a small left pleural effusiom. If pt's SOB does not improve consider repeat CXR tomorrow. (2) Atrial fibrillation with RVR Current Visit: No Status: Acute Code(s): I48.91 - UNSPECIFIED ATRIAL FIBRILLATION SNOMED Code(s): 737302925288330 Comment: - No longer with rapid rate at rest however HR does elevate do185i when pt coughs. Otherwise rate controlled with Diltiazem and Metoprolol with rates inthe 90s. No additional reports of pauses or bradycardia today since D/ Cing digoxin yesterday and switching metoprolol from succinate to tartate. - Pt has been diagnosed with RAYN and has CPAP at home. Pauses could be in the setting of hypoxia, however overnight pulse ox did not reflect desaturations - Cardiology consulted: feels tachycardia driven by COPD exacerbation, anemia, and digoxin and steroid use and should resolve as general condition improves. To address the bradycardia, meds adjusted as above. Pacemaker only indicated in awake asymptomatic Afib patient who has pauses of 5 seconds or greater. - Anticoagulated with xarelto. Also has IVC filter. (3) COPD (chronic obstructive pulmonary disease) Current Visit: No Status: Acute Code(s): J44.9 - CHRONIC OBSTRUCTIVE PULMONARY DISEASE, UNSPECIFIED SNOMED Code(s): 53201624 Comment: - In acute exacerbation. Expiratory wheezes on exam. Cough had been improving but is worse today. Tessalon increased to 200mg TID. Also continue mucinex. Pt is satting 100% on her baseline 2L NC. Says breathing improved with albuterol treatment. - Continue prednisone 40mg PO daily (consider starting taper tomorrow, as will help with her tachycardia as well), spiriva daily, asmanex daily, albuterol PRN - Sputum culture with normal eli (4) Left leg DVT Current Visit: No Status: Acute Code(s): I82.402 - ACUTE EMBOLISM AND THOMBOS UNSP DEEP VEINS OF L LOW EXTREM SNOMED Code(s): 882001874 Comment: - Doppler (02/21/2018) shows extensive DVT in left lower lextremity ( not new) - slightly less prominent than in prior study in November 2017 - h/o May Thurner syndrome on left, s/p thrombectomy and stent placement at [facility] 11/2017. S/p IVC filter placement in 11/2017 - Pt's xarelto restarted yesterday (reccomended by [facility]). Per patient she'd run out of prescription and had not been taking. - V/Q scan yesterday negative for PE - Pain at baseline per pt. Control with PRN [place] and home gabapentin (5) DM2 (diabetes mellitus, type 2) Current Visit: No Status: Chronic Comment: - Glucose today 86-255, also in the setting of steroids. Last A1c 7.0% in 10/2017. Continue sliding scale lispro and home glipizide. Metformin currently being held. (6) HLD (hyperlipidemia) Current Visit: No Status: Chronic Code(s): E78.5 - HYPERLIPIDEMIA, UNSPECIFIED SNOMED Code(s): 43090466 Comment: - Continue lipitor 80mg and ezitimbe (7) Hypothyroidism (acquired) Current Visit: No Status: Chronic Code(s): E03.9 - HYPOTHYROIDISM, UNSPECIFIED SNOMED Code(s): 825928045 Comment: - Continue synthroid 175mcg daily. TSH WNL (8) Obesity Current Visit: Yes Status: Acute Code(s): E66.9 - OBESITY, UNSPECIFIED SNOMED Code(s): 989747639 Comment: - BMI 40.5 (9) DVT prophylaxis Current Visit: No Status: Acute Code(s): WHI7602 - SNOMED Code(s): 135919350 Comment: - Pt anticoagulated with Xarelto (10) Full code status Current Visit: No Status: Acute Code(s): Z78.9 - OTHER SPECIFIED HEALTH STATUS SNOMED Code(s): 083547543 Status and Disposition: Inpatient. Anticipate discharge to home when medically stable. Attending: Sena Schafer
[2018-02-24] MEDS: Mometasone 220 MCG MDI INH SCH (16:46)
[2018-02-24] MEDS: Atorvastatin* 80 MG TAB PO SCH (20:15)
[2018-02-24] MEDS: traZODone TAB* 100 MG PO SCH (20:16)
[2018-02-24] MEDS: Pregabalin CAP(*) 50 MG PO SCH (20:16)
[2018-02-25] MEDS: HYDROcodone/ACETAMIN 5-325 MG* 1 TAB PO PRN (04:01)
[2018-02-25] MEDS: Levothyroxine TAB* 175 MCG TAB PO SCH (05:03)
[2018-02-25] MEDS: Tiotropium CAP.INH* CAP.INH/18 MCG (USE ORDER SET !) INH SCH (07:51)
[2018-02-25] MEDS: Insulin LISPRO* 1 UNITS UNIT SUBCUT SCH ×2 (08:16→13:04)
[2018-02-25] MEDS: Ezetimibe TAB* 10 MG PO SCH (08:40)
[2018-02-25] MEDS: Diltiazem CD CAP* 240 MG PO SCH (08:40)
[2018-02-25] MEDS: predniSONE TAB* 20 MG PO SCH (08:41)
[2018-02-25] MEDS: glipiZIDE TAB* 5 MG PO SCH (08:41)
[2018-02-25] MEDS: Sertraline* 100 MG TAB PO SCH (08:41)
[2018-02-25] MEDS: Rivaroxaban TAB(*) 20 MG TAB PO SCH (08:41)
[2018-02-25] MEDS: Torsemide TAB* 20 MG PO SCH (08:41)
[2018-02-25] MEDS: guaiFENesin ER TAB 600 MG PO SCH (08:41)
[2018-02-25] MEDS: Aspirin EC TAB* 81 MG TAB.EC PO SCH (08:41)
[2018-02-25] MEDS: Benzonatate CAP* 100 MG PO SCH ×2 (08:41→13:15)
[2018-02-25] MEDS: Omeprazole CAP* 20 MG PO SCH (08:41)
--- NOTE | 2018-02-25 08:50 | PN ---
Subjective Date of Service: 02/25/18 Interval History: Pt is feeling well today. She states her breathing is back to baseline. Her cough is markedly improved. She has not had any bleeding into her colostomy, she previously has bled easily when on anticoagulation. She would like to go home today. Objective Active Medications: Hydrocodone Bitart/Acetaminophen ([place] 5-325 Tab*) 1 tab PO Q4H PRN PRN Reason: PAIN Last Admin: 02/25/18 04:01 Dose: 1 tab Albuterol (Ventolin 2.5 Mg/3 Ml Neb.Lorie*) 2.5 mg INH Q4H PRN PRN Reason: SOB/WHEEZING Albuterol (Ventolin Hfa Inhaler*) 2 puff INH Q4H PRN PRN Reason: SOB/WHEEZING Albuterol/Ipratropium (Duoneb (Albuterol 2.5 Mg/Ipratropium 0.5 Mg)) 1 neb INH Q6H PRN PRN Reason: SOB/WHEEZING Last Admin: 02/24/18 07:24 Dose: 1 neb Alprazolam (Xanax Tab*) 0.25 mg PO TID PRN PRN Reason: ANXIETY Aspirin (Aspirin Ec Tab*) 81 mg PO DAILY [facility] Last Admin: 02/25/18 08:41 Dose: 81 mg Atorvastatin Calcium (Lipitor*) 80 mg PO BEDTIME [facility] Last Admin: 02/24/18 20:15 Dose: 80 mg Benzonatate (Tessalon Cap*) 200 mg PO TID [facility] Last Admin: 02/25/18 08:41 Dose: 200 mg Dextrose (D50w Syringe 50 Ml*) 12.5 gm IV PUSH .FOR FS < 60 - SS PRN PRN Reason: FS < 60 Diltiazem HCl (Cardizem Cd Cap*) 240 mg PO DAILY [facility] Last Admin: 02/25/18 08:40 Dose: 240 mg Ezetimibe (Zetia Tab*) 10 mg PO DAILY [facility] Last Admin: 02/25/18 08:40 Dose: 10 mg Glipizide (Glucotrol Tab*) 2.5 mg PO DAILY [facility] Last Admin: 02/25/18 08:41 Dose: 2.5 mg Guaifenesin (Mucinex*) 600 mg PO BID [facility] Last Admin: 02/25/18 08:41 Dose: 600 mg Insulin Human Lispro (Humalog*) 0 units SUBCUT ACHS [facility]; Protocol Last Admin: 02/25/18 08:16 Dose: Not Given Levothyroxine Sodium (Synthroid Tab*) 175 mcg PO 0600 [facility] Last Admin: 02/25/18 05:03 Dose: 175 mcg Metoprolol Tartrate (Lopressor Tab*) 100 mg PO DAILY [facility] Last Admin: 02/25/18 08:40 Dose: 100 mg Mometasone Furoate (Asmanex 220 Mcg Mdi *) 2 puff INH QPM [facility] Last Admin: 02/24/18 16:46 Dose: 2 puff Omeprazole (Prilosec Cap*) 40 mg PO DAILY [facility] Last Admin: 02/25/18 08:41 Dose: 40 mg Prednisone (Deltasone Tab*) 40 mg PO DAILY [facility] Last Admin: 02/25/18 08:41 Dose: 40 mg Pregabalin (Lyrica Cap(*)) 50 mg PO BEDTIME [facility] Last Admin: 02/24/18 20:16 Dose: 50 mg Rivaroxaban (Xarelto(*)) 20 mg PO DAILY [facility] Last Admin: 02/25/18 08:41 Dose: 20 mg Sertraline HCl (Zoloft*) 200 mg PO DAILY [facility] Last Admin: 02/25/18 08:41 Dose: 200 mg Tiotropium [place] (Spiriva Cap.Inh*) 1 cap INH DAILY [facility] Last Admin: 02/25/18 07:51 Dose: 1 cap Torsemide (Demadex*) 40 mg PO DAILY [facility] Last Admin: 02/25/18 08:41 Dose: 40 mg Trazodone HCl (Desyrel Tab*) 100 mg PO BEDTIME [facility] Last Admin: 02/24/18 20:16 Dose: 100 mg Vital Signs - 8 hr 02/25/18 02/25/18 02/25/18 03:44 04:01 07:25 Temperature 98.2 F Pulse Rate 71 147 Respiratory 18 17 16 Rate Blood Pressure 129/84 97/53 (mmHg) O2 Sat by Pulse 100 99 Oximetry 02/25/18 02/25/18 07:52 08:31 Temperature Pulse Rate 122 Respiratory Rate Blood Pressure 132/59 (mmHg) O2 Sat by Pulse Oximetry Oxygen Devices in Use Now: Nasal Cannula Appearance: Middle aged obese female sitting up in bed, NAD Eyes: No Scleral Icterus Ears/Nose/Mouth/Throat: Mucous Membranes Moist Respiratory: Symmetrical Chest Expansion and Respiratory Effort, Clear to Auscultation Cardiovascular: NL Sounds; No Murmurs; No JVD, - - irregularly irregular rhythm , controlled rate currently Abdominal: NL Sounds; No Tenderness; No Distention, - - colostomy in place Extremities: No Clubbing, Cyanosis Skin: No Nodules or Sclerosis Neurological: Alert and Oriented x 3 Result Diagrams: 02/24/18 06:17 02/24/18 06:17 Microbiology and Other Data: Microbiology 02/21/18 13:48 Aerobic Blood Culture - Preliminary Blood Venous No Growth Day 1 Anaerobic Blood Culture - Preliminary No Growth Day 1 02/21/18 13:53 Aerobic Blood Culture - Preliminary Blood Venous No Growth Day 1 Anaerobic Blood Culture - Preliminary No Growth Day 1 02/21/18 13:08 Gram Stain - Final Sputum Expectorated Assess/Plan/Problems-Billing Mrs. Ziegler is a 67yo F with PMH of obesity, Afib, COPD on home O2 2 liters/ min, GERD, diastolic CHF with EF 55%, chronic pain, HTN, DVT, PE, RYAN (home CPAP ), diabetes, bowel obstruction requiring colostomy, CAD s/p CABG, s/p AVR ( porcine), HLD, hypothyroidism, h/o GI AVM's and GI bleed who presented to ED with c/o chest pain and dyspnea, found to have COPD exacerbation and rapid Afib. - Patient Problems (1) Atrial fibrillation with RVR Current Visit: Yes Status: Acute Code(s): I48.91 - UNSPECIFIED ATRIAL FIBRILLATION SNOMED Code(s): 442214651459243 Comment: HR is generally better controlled though she does still have periods where her HR is markedly elevated (with coughing or exertions). Metoprolol tartrate incresed to 100mg qAM. Continue diltiazem CD 240mg daily. Xarelto started this admission. Will need to very cautiously watch her colostomy for signs of bleeding. (2) COPD (chronic obstructive pulmonary disease) Current Visit: Yes Status: Acute Code(s): J44.9 - CHRONIC OBSTRUCTIVE PULMONARY DISEASE, UNSPECIFIED SNOMED Code(s): 58873452 Comment: No signs of exacerbation at this time. Continue prn tessalon and mucinex. Start to taper prednisone. Continue spiriva, asmanex and prn albuterol. (3) Acute on chronic diastolic heart failure Current Visit: Yes Status: Acute Code(s): I50.33 - ACUTE ON CHRONIC DIASTOLIC (CONGESTIVE) HEART FAILURE SNOMED Code(s): 914028712 Comment: Pt appears relatively euvolemic today. Continue current dose of torsemide. No need to repeat CXR as pt is much improved today. (4) DVT prophylaxis Current Visit: Yes Status: Acute Code(s): ZPE7595 - SNOMED Code(s): 561344473 Comment: Pietro (5) Full code status Current Visit: Yes Status: Acute Code(s): Z78.9 - OTHER SPECIFIED HEALTH STATUS SNOMED Code(s): 064404629 Status and Disposition: Likely d/c home later today
[2018-02-25] MEDS ORDERED: Metoprolol Tartrate TAB* 100 MG TAB PO SCH (09:00)
--- NOTE | 2018-02-25 09:06 | PN ---
Subjective Date of Service: 02/25/18 Interval History: f/u afib management Patient doing well Breathing better No lightheadedness, palpitations or CP Still has RVR with exertion No significant pauses overnight Medications Active Medications: Hydrocodone Bitart/Acetaminophen ([place] 5-325 Tab*) 1 tab PO Q4H PRN PRN Reason: PAIN Last Admin: 02/25/18 04:01 Dose: 1 tab Albuterol (Ventolin 2.5 Mg/3 Ml Neb.Lorie*) 2.5 mg INH Q4H PRN PRN Reason: SOB/WHEEZING Albuterol (Ventolin Hfa Inhaler*) 2 puff INH Q4H PRN PRN Reason: SOB/WHEEZING Albuterol/Ipratropium (Duoneb (Albuterol 2.5 Mg/Ipratropium 0.5 Mg)) 1 neb INH Q6H PRN PRN Reason: SOB/WHEEZING Last Admin: 02/24/18 07:24 Dose: 1 neb Alprazolam (Xanax Tab*) 0.25 mg PO TID PRN PRN Reason: ANXIETY Aspirin (Aspirin Ec Tab*) 81 mg PO DAILY [facility] Last Admin: 02/25/18 08:41 Dose: 81 mg Atorvastatin Calcium (Lipitor*) 80 mg PO BEDTIME [facility] Last Admin: 02/24/18 20:15 Dose: 80 mg Benzonatate (Tessalon Cap*) 200 mg PO TID [facility] Last Admin: 02/25/18 08:41 Dose: 200 mg Dextrose (D50w Syringe 50 Ml*) 12.5 gm IV PUSH .FOR FS < 60 - SS PRN PRN Reason: FS < 60 Diltiazem HCl (Cardizem Cd Cap*) 240 mg PO DAILY [facility] Last Admin: 02/25/18 08:40 Dose: 240 mg Ezetimibe (Zetia Tab*) 10 mg PO DAILY [facility] Last Admin: 02/25/18 08:40 Dose: 10 mg Glipizide (Glucotrol Tab*) 2.5 mg PO DAILY [facility] Last Admin: 02/25/18 08:41 Dose: 2.5 mg Guaifenesin (Mucinex*) 600 mg PO BID [facility] Last Admin: 02/25/18 08:41 Dose: 600 mg Insulin Human Lispro (Humalog*) 0 units SUBCUT [facility]; Protocol Last Admin: 02/25/18 08:16 Dose: Not Given Levothyroxine Sodium (Synthroid Tab*) 175 mcg PO 0600 [facility] Last Admin: 02/25/18 05:03 Dose: 175 mcg Metoprolol Tartrate (Lopressor Tab*) 100 mg PO DAILY [facility] Last Admin: 02/25/18 08:40 Dose: 100 mg Mometasone Furoate (Asmanex 220 Mcg Mdi *) 2 puff INH QPM [facility] Last Admin: 02/24/18 16:46 Dose: 2 puff Omeprazole (Prilosec Cap*) 40 mg PO DAILY [facility] Last Admin: 02/25/18 08:41 Dose: 40 mg Prednisone (Deltasone Tab*) 40 mg PO DAILY [facility] Last Admin: 02/25/18 08:41 Dose: 40 mg Pregabalin (Lyrica Cap(*)) 50 mg PO BEDTIME [facility] Last Admin: 02/24/18 20:16 Dose: 50 mg Rivaroxaban (Xarelto(*)) 20 mg PO DAILY [facility] Last Admin: 02/25/18 08:41 Dose: 20 mg Sertraline HCl (Zoloft*) 200 mg PO DAILY [facility] Last Admin: 02/25/18 08:41 Dose: 200 mg Tiotropium [place] (Spiriva Cap.Inh*) 1 cap INH DAILY [facility] Last Admin: 02/25/18 07:51 Dose: 1 cap Torsemide (Demadex*) 40 mg PO DAILY [facility] Last Admin: 02/25/18 08:41 Dose: 40 mg Trazodone HCl (Desyrel Tab*) 100 mg PO BEDTIME [facility] Last Admin: 02/24/18 20:16 Dose: 100 mg Objective Vital Signs: Temp Pulse Resp BP Pulse Ox 98.2 F 122 16 132/59 99 02/25/18 07:25 02/25/18 07:52 02/25/18 07:25 02/25/18 08:31 02/25/18 07:25 Oxygen Devices in Use Now: Nasal Cannula Appearance: chronically ill appearing, pleasant Ears/Nose/Mouth/Throat: Clear Oropharnyx, Mucous Membranes Moist Neck: NL Appearance and Movements; NL JVP, Trachea Midline Respiratory: Symmetrical Chest Expansion and Respiratory Effort, - - scattered wheeze Cardiovascular: - - irregularly irregular, 1/6 systolic murmur LLSB Abdominal: NL Sounds; No Tenderness; No Distention Extremities: No Clubbing, Cyanosis - 1+ edema with chronic stasis changes Neurological: Alert and Oriented x 3 Laboratory Results: 02/24/18 06:17 02/24/18 06:17 Total Bilirubin 0.40 mg/dL (0.2-1.0) 02/21/18 13:15 AST 13 U/L (13-39) 02/21/18 13:15 ALT 11 U/L (7-52) 02/21/18 13:15 Alkaline Phosphatase 76 U/L (34-104) 02/21/18 13:15 B-Natriuretic Peptide 310 pg/mL (-100) H 02/21/18 13:15 Total Protein 7.4 g/dL (6.4-8.9) 02/21/18 13:15 Albumin 3.4 g/dL (3.2-5.2) 02/21/18 13:15 Globulin 4.0 g/dL (2-4) 02/21/18 13:15 Albumin/Globulin Ratio 0.9 (1-3) L 02/21/18 13:15 TSH 5.59 mcIU/mL (0.34-5.60) 02/23/18 06:20 02/21/18 13:15 Troponin I 0.02 Diagnostic Imaging: Diagnostic Imaging: Echo 08/03/2017 interpretation: moderate-severe LVH, lvef 50-55%, LA severe dilated, RV funciton mildly reduced , severe RA dilation, normal functioning aortic bioprosthesis, moderate mr EKG Data: EKG 08/03/2017: AFib/RVF diffuse ST segment depression partially downsloping consider digoxin effect and/or rate related and/or ischemic changes (similar ST segment changes to ekg from 2016 which also showed atrial fibrillation) EKG Data: ekg 02/21/2018: Rapid afib 144 bpm, downsloping ST depression v4-v6 and inferior leads. ST segment changes less pronounced than 11/29/2017 when rate was controlled consider digoxin effect Assessment/Plan Mercy Ziegler is a 67 year old woman I am consulted on for long-term persistent atrial fibrillation management, LVEF normal. - Patients tachycardia is likely being driven by COPD exacerbation, anemia, high dose steroids, underlying lung disease and digoxin use (controls resting heart rate but not exertional heart rate well) - Permanent cardiac pacemaker is only indicated in an awake asymptomatic patient with atrial fibrillation of pauses 5 seconds or greater - Her rates should return to normal with further treatment of her underlying copd exacerbation and steroid taper. - Discontinue digoxin - Continue diltiazem 240 mg po daily - Increase metoprolol tartrate from 50 to 100 mg po daily. Would use this instead of succinate because not long acting and most of elevated heart rates are in the day and pauses overnight Patient should follow up with her regular [facility], Dr. Sanders after discharge Thank you for allowing me to participate in the cardiovascular care of this patient. Please do not hesitate to contact me with questions or concerns.
[2018-02-25 13:11] VITALS: BP 94/72
--- NOTE | 2018-02-25 23:05 | DS ---
CC: Dr. Simons * DISCHARGE SUMMARY: DATE OF ADMISSION: 02/21/18 DATE OF DISCHARGE: 02/25/18 PRIMARY CARE PROVIDER: Dr. Simons. CONSERVATION WORKER: Mr. Sanders. PRINCIPAL DIAGNOSES: 1. Chronic obstructive pulmonary disease exacerbation. 2. Mrmpt-xv-[id number] diastolic congestive heart failure. 3. Atrial fibrillation with rapid ventricular response. SECONDARY DIAGNOSES: 1. Coronary artery disease. 2. Chronic hypoxic respiratory failure on 2 L of oxygen continuously. 3. Anxiety. 4. Type 2 diabetes. 5. Hypertension. 6. Depression. DISCHARGE MEDICATIONS: 1. Ensure liquid 237 mL p.o. daily. 2. [place] 5/325 one tab p.o. q.4 hours p.r.n. pain. 3. Albuterol 1 neb inhaled q.4 hours p.r.n. shortness of breath. 4. Albuterol 2 puffs inhaled q.4 hours p.r.n. shortness of breath. 5. Xanax 0.25 mg p.o. t.i.d. p.r.n. anxiety. 6. Aspirin 81 mg p.o. daily. 7. Lipitor 80 mg p.o. q.h.s. 8. EpiPen 0.3 mg IM once as needed for allergic reaction. 9. Diltiazem CD 240 mg p.o. daily. 10. Fluticasone 2 puffs inhaled b.i.d. 11. Zetia 10 mg p.o. daily. 12. Levothyroxine 175 mcg p.o. daily. 13. Metoprolol tartrate 100 mg p.o. daily. 14. Omeprazole 40 mg p.o. daily. 15. Sertraline 200 mg p.o. daily. 16. Lyrica 50 mg p.o. q.h.s. 17. Spiriva 1 puff inhaled daily. 18. Torsemide 40 mg p.o. daily. 19. Glipizide 2.5 mg p.o. daily. 20. Metformin 500 mg p.o. b.i.d. 21. Trazodone 100 mg p.o. q.h.s. 22. Prednisone 30 mg p.o. daily x3 days, and 20 mg x3 days, and 10 mg x3 days. 23. Xarelto 20 mg p.o. daily (new). 24. Tessalon 200 mg p.o. t.i.d. p.r.n. cough. HOSPITAL COURSE: Ms. Ziegler is a 67-year-old female who has a complicated past medical history including COPD with chronic hypoxic respiratory failure on 2 L of oxygen continuously, diastolic congestive heart failure, coronary artery disease, atrial fibrillation, and type 2 diabetes presented to the emergency room with complaints of shortness of breath. The patient ultimately was admitted for a probable chronic obstructive pulmonary disease exacerbation, ggrop-ja-qnejqvi diastolic congestive heart failure related to being in rapid atrial fibrillation. The patient's breathing improved relatively quickly; however, coughing became a significant issue. With ingestion of the Tessalon dose, the patient's cough is dramatically improved. She has not been bringing up much sputum at all. She was started on prednisone and this will be tapered over the next 9 days. I do suspect some of the shortness of breath may have also been related to being in rapid atrial fibrillation and developing worsening [id number] diastolic congestive heart failure. The patient received a dose of IV Lasix with good response. She has since been started back on her usual dose of torsemide, also with continued decent response. In terms of the atrial fibrillation, the patient's heart rate has been somewhat difficult to control. She has had significant fluctuations in her heart rate anywhere from the low 40s up to 160. The patient's heart rate generally has become more consistent in a controlled manner since her breathing has improved. Cardiology consultation was requested due to the difficult to control atrial fibrillation and she has since been taken off her digoxin and metoprolol XL. In place of these, she has been started on short-acting metoprolol once daily in the morning. Overnight, the patient's heart rate generally is controlled. While she is awake, it is under less control. The patient was also started on Xarelto. In the past, she has had quickly developed GI bleeding associated with being on Xarelto. The patient has been instructed to watch the output from her colostomy very closely and if she begins to bleed to come off the Xarelto and seek evaluation. The patient has otherwise been maintained on her usual home medication regimen. FOLLOWUP CONCERNS: She will follow up with Dr. Simons in the next 4 to 7 days, and with Dr. Sanders in the next 1 to 2 weeks. ACTIVITY LEVEL: As tolerated. DIET: Heart-healthy, diabetic. CONDITION ON DISCHARGE: Stable. TIME SPENT: 35 minutes were spent discharging this patient. [id number]/[facility] #: [id number] SERENA
[2018-02-26] MEDS ORDERED: predniSONE TAB* 10 MG PO SCH (09:00)
== END 2018-02-25 14:59 | disposition home or self-care (01) | DRG 190 ==
LOC: ED 12:43 → MEDTELE 15:38
PROVIDERS: ADMIT Internal Medicine; ATTEND Hospitalist
DX: J44.1 Chronic obstructive pulmonary disease with (acute) exacerbation (principal); I50.33 Acute on chronic diastolic (congestive) heart failure; J96.11 Chronic respiratory failure with hypoxia; I13.2 Hypertensive heart and chronic kidney disease with heart failure and with stage 5 chronic kidney disease, or end stage renal disease; N18.5 Chronic kidney disease, stage 5; I82.502 Chronic embolism and thrombosis of unspecified deep veins of left lower extremity; I11.0 Hypertensive heart disease with heart failure; I48.91 Unspecified atrial fibrillation; E11.40 Type 2 diabetes mellitus with diabetic neuropathy, unspecified; Z99.81 Dependence on supplemental oxygen; E11.22 Type 2 diabetes mellitus with diabetic chronic kidney disease; D72.0 Genetic anomalies of leukocytes; G89.29 Other chronic pain; E03.9 Hypothyroidism, unspecified; E66.9 Obesity, unspecified; G47.33 Obstructive sleep apnea (adult) (pediatric); F41.9 Anxiety disorder, unspecified; I25.10 Atherosclerotic heart disease of native coronary artery without angina pectoris; F32.9 Major depressive disorder, single episode, unspecified; K21.9 Gastro-esophageal reflux disease without esophagitis; Z79.84 Long term (current) use of oral hypoglycemic drugs; Z79.82 Long term (current) use of aspirin; Z79.899 Other long term (current) drug therapy; Z88.8 Allergy status to other drugs, medicaments and biological substances; Z91.030 Bee allergy status; Z91.013 Allergy to seafood; Z87.891 Personal history of nicotine dependence; Z68.39 Body mass index [BMI] 39.0-39.9, adult; Z95.1 Presence of aortocoronary bypass graft; Z95.2 Presence of prosthetic heart valve; Z93.3 Colostomy status; Z86.711 Personal history of pulmonary embolism
CPT/HCPCS: 36415; 71045; 71046; 78582; 80048; 80053; 80162; 83605; 83880; 84443; 84484; 85025; 85027; 87040; 87070; 87205; 93005; 93970; 94640; 99284; A9270-GY; A9540; A9558; J1940; J2060; J2920; J2930; J7512; J7611

== ENCOUNTER 2018-03-06 10:27 | Inpatient (IN) | payer MEDICARE, MEDICAID ==
--- NOTE | 2018-03-06 10:32 | ED ---
Shortness of Breath - HPI Summary HPI Summary: A 67 y/o F with pert PMHx: afib, COPD, CABG, DVT, was BIBA presenting to ED with c/o SOB onset this AM. Pt has a known DVT in LLE as of 02/21/2018. Associated sx: rhinorrhea, productive cough, vomiting episode at 0300, HOWE, blurred vision, sore throat, RLE edema, anxious. Denies dysuria. Pt is on 2L O2 at home. She uses an inhaler. Pt received her flu shot this year. - History of Current Complaint Hx Obtained From: Patient Onset/Duration: Gradual Onset, Lasting Hours, Still Present Timing: Constant Current Severity: Severe - w Dyspnea At: Rest Aggrevating Factors: Recumbent Position Alleviating Factors: Upright Position Associated Signs & Symptoms: Cough (Productive), Calf Pain/Swelling - Allergy/Home Medications Allergies/Adverse Reactions: Allergies Allergy/AdvReac Type Severity Reaction Status Date / Time bee venom protein (honey bee) Allergy Severe Rash Verified 08/03/17 13:55 shellfish derived Allergy Severe Hives Verified 08/03/17 13:55 Iodinated Contrast- Oral and Allergy Intermediate Hives Verified 08/03/17 13:55 IV Dye celecoxib Allergy Hives Verified 08/03/17 13:55 PMH/Surg Hx/FS Hx/Imm Hx Previously Healthy: No Endocrine/Hematology History: Reports: Hx Anticoagulant Therapy, Hx Diabetes, Hx Thyroid Disease, Hx Anemia Cardiovascular History: Reports: Hx Cardiac Arrest, Hx Congestive Heart Failure , Hx Coronary Artery Disease, Hx Deep Vein Thrombosis, Hx Hypercholesterolemia, Hx Hypotension, Hx Hypertension, Hx Peripheral Vascular Disease, Hx Valvular Heart Disease, Other Cardiovascular Problems/Disorders - CAD, DVT, valve replacement, CABG Denies: Hx Pacemaker/ICD Respiratory History: Reports: Hx Asthma, Hx Chronic Obstructive Pulmonary Disease (COPD), Hx Pneumonia, Hx Pulmonary Embolism, Hx Sleep Apnea, Other Respiratory Problems/Disorders - home o2, 2.5L GI History: Reports: Hx Diverticulosis, Hx Gall Bladder Disease, Hx Gastroesophageal Reflux Disease, Hx Gastrointestinal Bleed - 08/22/16 admission, Hx Hiatal Hernia, Other GI Disorders - DIVERTICULITIS, SBO with colostomy History: Reports: Hx Kidney Stones, Hx Renal Disease - KIDNEY STONES Denies: Hx Dialysis, Other Problems/Disorders Musculoskeletal History: Reports: Hx Arthritis - legs and shoulders, Hx Back Problems, Hx Bursitis, Hx Scoliosis, Other Musculoskeletal History - Left hip replacement Denies: Hx Osteoporosis Sensory History: Reports: Hx Contacts or Glasses Denies: Hx Deafness, Hx Hearing Aid Opthamlomology History: Reports: Hx Contacts or Glasses Neurological History: Denies: Hx Dementia, Hx Developmental Delay, Hx Headaches, Hx Migraine, Hx Nerve Disease, Hx Seizures, Hx Spinal Cord Injury, Hx Transient Ischemic Attacks (TIA), Other Neuro Impairments/Disorders Psychiatric History: Reports: Hx Anxiety, Hx Depression Denies: Hx Panic Disorder, Hx Substance Abuse - Surgical History Surgery Procedure, Year, and Place: TUBAL LIGATION 1979, [facility] [place] , CHOLE[place]STECTOM[place] [facility] [place], 2008, KIDNEY STONES REMOVED 1998, [facility] [place], TRIPLE BYPASS, HEART VALVE REPLACEMENT 2010, [facility], LEFT HIP REPLACED, 2009, [facility]. TONSILECTOMY A CHILD. COLOSTOMY 2015 Hx Anesthesia Reactions: No - Immunization History Date of Tetanus Vaccine: Up to date Date of Influenza Vaccine: Fall 2011 Infectious Disease History: Reports: Hx of Known/Suspected MRSA - 08/22/16 [facility] [place] + MRSA nares, Hx Shingles Denies: Hx Hepatitis, Hx Human Immunodeficiency Virus (HIV) - Family History Known Family History: Positive: Cardiac Disease, Other - neg: anesthesia reaction - Social History Occupation: Retired Lives: With Family Alcohol Use: None Hx Substance Use: No Substance Use Type: Reports: None Hx Tobacco Use: Yes Smoking Status (MU): Former Smoker Type: Cigarettes Have You Smoked in the Last Year: No Review of Systems Negative: Fever Positive: Blurred Vision Positive: Sore Throat, Nasal Discharge Positive: Shortness Of Breath, Cough - productive Positive: Vomiting Negative: dysuria Positive: Edema - RLE Skin: Negative Positive: Headache Positive: Anxious All Other Systems Reviewed And Are Negative: No Physical Exam - Summary Physical Exam Summary: Appearance: Alert, conversive, nontoxic appearing Skin: Warm, dry, no mottling, no rashes, no contusions. Pale. HEENT: EOMI, PERRL, dry mucous membranes Neck: No masses on the neck, supple Respiratory: Dyspnic, diminished breath sounds Cardiovascular: Tachypnic, irregularly irregular. Pulses are symmetrical in both lower and upper extremities Abdomen: Soft, non-tender Bowel Sounds: Present Musculoskeletal: No CVA tenderness, no obvious deformity, moving all extremities in a grossly normal manner. Calf tenderness, RLE is markedly swollen. Neurological: A&Ox3, CN II-XII Intact, moving all extremities symmetrically Psychiatric: Normal affect and mood Triage Information Reviewed: Yes Vital Signs Reviewed: Yes Diagnostics - Laboratory Result Diagrams: 03/06/18 10:51 03/06/18 10:51 Lab Statement: Any lab studies that have been ordered have been reviewed, and results considered in the medical decision making process. - Radiology CXR Xray Interpretation: Positive (See Comments) - IMPRESSION: Postoperative changes with chronic pleural changes in left costophrenic angle likely representing a left pleural effusion. Cardiomegaly is noted. ED provider has reviewed this report. This report is only to be considered final once signed by the Provider(s) as displayed in the "<Electronically Signed by >" field (s). Absence of a signature indicates the report is in a draft status and still needs to be finalized. In the event this document was created by someone other than the signing Provider, the individual initiating the document will be listed in the "Entered by:" or "Dictated by:" morrison. 1 of 1 Radiology Interpretation Completed By: Radiologist - EKG 1038 Cardiac Rate: Other Rate - 145 bpm EKG Rhythm: Atrial Fibrillation - with RVR ST Segment: Non-Specific - in V5, V6, avL EKG Interpretation: nml QRS, prolonged QTC Re-Evaluation - Re-Evaluation 1 Re-Evaluation Time: 11:35 Change: Improved Comment: Upon reeval, pt appears better and is speaking more fluently. Pt is not in respiratory distress. Still persistently tachy in the 11Xs - 140s. BP after 500ccs is systolically 95bpm. RLE U/S is still pending. She does have IV filter. Will give aspirin, Metoprolol and start her on Cardizam IV 5mg per hour. Dr. Schafer is aware. Course/Dx - Course Course Of Treatment: Pt is a 67 y/o F with pert PMHx: afib, COPD, CABG, DVT, was BIBA presenting to ED with c/o SOB onset this AM. Pt has a known DVT in LLE as of 02/21/2018. Placed 18g catheter to the R External Jugular, one attempt, no complications. Area was prepped in a sterile manner. Upon reeval, pt appears better and is speaking more fluently. Pt is not in respiratory distress. Still persistently tachy in the 11Xs - 140s. BP after 500ccs is systolically 95bpm. RLE U/S is still pending. She does have IV filter. Will give aspirin, Metoprolol and start her on Cardizam IV 5mg per hour. Dr. Schafer is aware. - Diagnoses Provider Diagnoses: Atrial fibrillation - Physician Notifications Discussed Care of Patient With: Sena Schafer - hospitalist Time Discussed With Above Provider: 11:41 Instructed by Provider To: Admit As Inpatient - Critical Care Time Critical Care Time: 30-74 min - 35 minutes Discharge - Sign-Out/Discharge Documenting (check all that apply): Patient Departure - ADM - Discharge Plan Condition: Stable Disposition: ADMITTED TO [facility] - Billing Disposition and Condition Condition: STABLE Disposition: Admitted to [facility] - Attestation Statements Document Initiated by Scribe: Yes Documenting Scribe: Lan Gay Provider For Whom Scribe is Documenting (Include Credential): Dr. Dania Carr MD Scribe Attestation: I, Lan Gay, scribed for Dr. Dania Carr MD on 03/06/18 at 2151. Scribe Documentation Reviewed: Yes Provider Attestation: The documentation as recorded by the Lan nowak accurately reflects the service I personally performed and the decisions made by , Dr. Dania Carr MD
[2018-03-06] MEDS ORDERED: NS 0.9% 500 ML* 500 ML IV ONE (10:40)
[2018-03-06 11:04] LABS: ABS Basophils 0.1 10^3/ul (0-0.2); ABS Eosinophils 0.2 10^3/ul (0-0.6); ABS Lymphocytes 3.4 10^3/ul (1.0-4.8); ABS Monocytes 0.9 10^3/ul (0-0.8); ABS Neutrophils 10.4 10^3/ul (1.5-7.7); ABS Nucleated RBC 0 10^3/ul; Eosinophil % 1.4 % (0-6); Hematocrit 34 % (35-47); Hemoglobin 10.4 g/dl (12.0-16.0); Lymphocyte % 22.4 % (25-47); Mean Corpuscular HGB Conc 31 g/dl (31-36); Mean Corpuscular Hemoglobin 24 pg (27-31); Mean Corpuscular Volume 77 fL (80-97); Mean Platelet Volume 8.6 um3 (7.4-10.4); Nucleated Red Blood Cells % 0.1; Platelet Count 223 10^3/ul (150-450); Red Blood Count 4.42 10^6/ul (4.00-5.40); Red Cell Distribution Width 19 % (10.5-15)
--- NOTE | 2018-03-06 11:14 | RAD ---
Indication: Dyspnea. Single frontal view of the chest performed at 1054 hours was reviewed. Comparison is made with previous exam dated February 22, 2018. Cardiomegaly is noted. Patient is status post tracer thoracotomy. No midline shift noted. There is left pleural effusion. Right lung field is clear. No evidence of alveolar consolidation is noted. IMPRESSION: Postoperative changes with chronic pleural changes in left costophrenic angle likely representing a left pleural effusion. Cardiomegaly is noted.
[2018-03-06 11:21] LABS: EGFR Non-African American 37.5 (>60)
[2018-03-06] MEDS ORDERED: Diltiazem IV VIAL* 125 MG in NS 0.9% 100 ML* 100 ML IVPB ONE (11:43)
[2018-03-06] MEDS ORDERED: Aspirin TAB* 325 MG PO ONE (11:43)
[2018-03-06] MEDS ORDERED: Metoprolol Tartrate TAB* 25 MG PO ONE (11:44)
[2018-03-06] MEDS ORDERED: Benzonatate CAP* 100 MG PO PRN (12:21)
[2018-03-06] MEDS ORDERED: Albuterol 2.5 MG/3 ML NEB.SOL* (0.083%) INH PRN (12:21)
[2018-03-06] MEDS ORDERED: Aspirin 81 mg CHEW TAB* 81 MG TAB.CHEW ONE (12:38)
--- NOTE | 2018-03-06 12:40 | RAD ---
Indication: Leg edema. Duplex Doppler sonography of the deep venous system of the right lower extremity deep venous system was performed. Comparison is made with previous exam dated February 21, 2018. The right common femoral vein appears patent and compressible. Nonocclusive thrombus is noted in the left common femoral vein as well as identified on previous exam of February 21, 2018. Right proximal greater saphenous vein, proximal deep femoral vein, femoral vein, popliteal vein, posterior tibial veins and peroneal veins appear patent and compressible. IMPRESSION: NO EVIDENCE OF DEEP VENOUS THROMBOSIS IS IDENTIFIED IN THE RIGHT LOWER EXTREMITY. PARTIAL NONOCCLUSIVE THROMBUS IS NOTED IN THE LEFT COMMON FEMORAL VEIN IDENTIFIED ON FEBRUARY 21, 2018..
[2018-03-06] MEDS ORDERED: Diltiazem DRIP* 100 MG/100 ML ADDV.BAG IVPB ONE (12:45)
[2018-03-06] MEDS ORDERED: Dextrose 50% Syringe 50 ML* 25 GM/50 ML SYRINGE IV PUSH PRN (12:48)
[2018-03-06] MEDS: HYDROcodone/ACETAMIN 5-325 MG* 1 TAB PO PRN ×2 (13:38→21:43)
--- NOTE | 2018-03-06 16:03 | HP ---
CC: Dr. Simons * HISTORY AND PHYSICAL: DATE OF ADMISSION: 03/06/18 PRIMARY CARE PROVIDER: Dr. Simons. CHIEF COMPLAINT: Shortness of breath. HISTORY OF PRESENT ILLNESS: Ms. Ziegler is a 67-year-old female, who I cared for during her last hospitalization from 02/21/18 through 02/25/18, where she was treated for COPD exacerbation, diastolic congestive heart failure and rapid atrial fibrillation. At the time of the patient's discharge on 02/25/18, her heart rate had come under better control and her breathing was much improved. The patient states that she was feeling quite good up until the morning of admission. She states she awaken from sleep at approximately 4 a.m. this morning with nausea. She vomited. Following that, she felt like she could not catch her breath. She states today she also used a nebulizer treatment and coughed up some phlegm. She typically, however, has not been coughing up phlegm over the last 2 days. She has not had any fevers or chills. She does think that her weight is up a couple of pounds, though she states that she has been snacking quite a bit recently. She has taken all of her morning medications today including her Xarelto. The patient has previously had issues with GI bleeding while on Xarelto and despite this being started during her hospitalization, she has not had any signs of bleeding that she has been aware of. At this point, the patient is symptomatic with just scooching around in the bed. PAST MEDICAL HISTORY: 1. Atrial fibrillation. 2. History of bowel obstruction with resection and colostomy. 3. Chronic diastolic heart failure. 4. Coronary artery disease, status post CABG. 5. Chronic hypoxic respiratory failure, on 2 L of oxygen continuous at home, secondary to COPD. 6. Anxiety. 7. Type 2 diabetes. 8. Hypertension. 9. Depression. 10. Chronic pain. 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 12. History of lower GI bleed. MEDICATIONS: 1. Trazodone 100 mg p.o. q.h.s. 2. Metformin 500 mg p.o. b.i.d. 3. Glipizide 2.5 mg p.o. daily. 4. Torsemide 40 mg p.o. daily. 5. Spiriva 1 puff inhaled daily. 6. Sertraline 200 mg p.o. daily. 7. Xarelto 20 mg p.o. daily. 8. Lyrica 50 mg p.o. q.h.s. 9. Omeprazole 40 mg p.o. daily. 10. Metoprolol tartrate 100 mg p.o. daily. 11. Levothyroxine 175 mcg p.o. daily. 12. Ensure liquid 237 mL p.o. daily. 13. [place] 5/325 one 1 tab p.o. q.4 hours p.r.n. pain. 14. Flovent 2 puffs inhaled twice daily. 15. Zetia 10 mg p.o. daily. 16. EpiPen 0.3 mg IM once as needed for allergic reaction. 17. Diltiazem CD 240 mg p.o. daily. 18. Tessalon 200 mg p.o. t.i.d. p.r.n. cough. 19. Lipitor 80 mg p.o. q.h.s. 20. Aspirin 81 mg p.o. daily. 21. Albuterol 2 puffs inhaled q.4 hours p.r.n. shortness of breath. 22. Albuterol 1 neb inhaled q.4 hours p.r.n. shortness of breath. 23. Xanax 0.25 mg p.o. t.i.d. p.r.n. anxiety. ALLERGIES: BEES, SHELLFISH, IODINE, and CELEBREX. FAMILY HISTORY: Positive for heart disease in her mother and brother. SOCIAL HISTORY: The patient is a former smoker. She does not drink alcohol. She lives at home with her daughter, Stephanie, who is her healthcare proxy. REVIEW OF SYSTEMS: A complete 11-system review of systems is obtained. Pertinent positives and negatives are as HPI and otherwise negative. PHYSICAL EXAMINATION GENERAL: The patient is a well-developed, obese, middle-aged female seen sitting up in the stretcher, appearing to be in no acute distress. VITAL SIGNS: Blood pressure 96/72, pulse 145, respirations 19, temp 97.5, O2 sat 100% on 2 L. HEENT: Pupils are equal and round. Extraocular muscles are intact. The oropharynx is clear. Oral mucosa is moist. NECK: There is no submandibular, cervical, or supraclavicular adenopathy. PULMONARY: Lungs are clear to auscultation bilaterally without any wheezes. CARDIAC: Normal S1, S2. Heart rate is irregularly irregular and tachycardic. There is 1 to 2+ bilateral lower extremity pitting edema. ABDOMEN: Bowel sounds present. Abdomen is obese, soft, nontender, and nondistended. There is a colostomy present. MUSCULOSKELETAL: There is no cyanosis or clubbing of the digits. There is full active range of motion of all 4 extremities. NEURO: Cranial nerves II through XII are grossly intact. Sensation is intact to light touch throughout. Strength is 5/5 and symmetric in both upper and lower extremities bilaterally. PSYCH: The patient is alert. She is oriented x3. Affect appears appropriate. SKIN: Warm and dry. There are no rashes. There are few bruises and scabs noted on the patient's arms. Otherwise, there are no rashes. DIAGNOSTIC STUDIES/LAB DATA: WBC 15.0, hemoglobin 10.4, hematocrit 34, platelets 223. Sodium 136, potassium 4.4, chloride 98, CO2 of 29, BUN 28, creatinine 1.40, glucose 168, lactic acid 2.6, calcium 8.6, magnesium 2.1. Bilirubin 0.6, AST 19, ALT 29, alk phos 73. Troponin 0.01. BNP 911. Albumin 3.4. TSH 46.99 (TSH on 02/23/18 was 5.59). EKG reveals atrial fibrillation with rapid ventricular response. Chest x-ray reveals chronic pleural changes in the left costophrenic angle, likely representing a left pleural effusion. Cardiomegaly is noted. ASSESSMENT AND PLAN: Ms. Ziegler is a 67-year-old female, who is well known to the hospitalist service from multiple prior hospitalizations this year, who presents to the emergency room with complaints of shortness of breath. She was found to be in rapid atrial fibrillation in the emergency room prompting the hospitalist evaluation. 1. Rapid atrial fibrillation. The patient historically has had difficult to control atrial fibrillation. During the last hospitalization, I have requested a cardiology consultation due to this. At that point, she was having periods where her heart rate would be in the 40s and 50s and other times where her heart rate would be 150. Medication adjustments were made during that hospitalization; however, clearly the patient continues to have issues with rapid atrial fibrillation. I have asked for Dr. Chen to consult again. It is possible the patient may need pacemaker so that her rate controlling agents can be increased or she can undergo atrial fibrillation ablation. For now, I am going to hold her Xarelto at the direction of Dr. Chen. I do believe that the patient's rapid atrial fibrillation is likely what has contributed to her shortness of breath. Her lungs are quite clear at this time. There is no wheezing or tightness on exam. There are no crackles heard on exam. My goal will be to control the patient's heart rate to see if that improves her respiratory status. For now, I am going to continue her on her usual dose of torsemide, as she does not appear to be any more hypervolemic than she did last hospitalization. 2. Chronic obstructive pulmonary disease. At this point, the patient does not sound to be in a chronic obstructive pulmonary disease exacerbation. She has full clear breath sounds without any tightness or wheezing. I will continue her on her usual home medication regimen. She has completed a prednisone taper that was prescribed at the end of her last hospitalization. 3. Type 2 diabetes. I am going to hold the patient's glipizide and metformin for now. She will be placed on a lispro sliding scale. 4. Coronary artery disease. The patient will be maintained on her aspirin and Lipitor. 5. Anxiety. Continue Xanax p.r.n. 6. Hypothyroidism. The patient had a normal TSH just on 02/23/18. Her TSH today is markedly elevated. I will have to confirm with the patient that she was taking her usual dose of Synthroid. At this point, she will be continued on her usual dose of 175 mcg daily. 7. DVT prophylaxis: According to the Adult Thrombosis Prophylaxis Risk Factor Assessment Guide, the patient has a total risk factor score of 9 making her high risk. She is already on Xarelto. Though while this is being held today, she should covered through today as she took dose this morning. 8. Code status is full. TIME SPENT: Sixty five minutes was spent admitting this patient. [id number]/[facility] #: [id number] SERENA
--- NOTE | 2018-03-06 20:07 | PN ---
Progress Note - Progress Note Date of Service: 03/06/18 Note: Paged for rate controlled afib. Will d/c drip and resume home dilitiazem dose.
[2018-03-06] MEDS: Mometasone 220 MCG MDI INH SCH (20:31)
[2018-03-06] MEDS: Insulin LISPRO* 1 UNITS UNIT SUBCUT SCH ×2 (20:46→21:43)
--- NOTE | 2018-03-06 21:23 | CONS ---
CC: Dr. Sanders * CARDIOLOGY CONSULTATION: DATE OF CONSULT: 03/06/18 INDICATION FOR CONSULT: Atrial fibrillation, tachybrady syndrome. HISTORY OF PRESENT ILLNESS: The patient is a 67-year-old female with a long history of paroxysmal atrial fibrillation, history of tachybrady syndrome, history of COPD, who was admitted to the hospital with COPD exacerbation and atrial fibrillation with rapid ventricular response. The patient had a similar admission back in November of this year and then again in the beginning of February. The patient had a cardiology consultation last week with Dr. Waddell. At that time, he diagnosed the patient with paroxysmal and persistent atrial fibrillation, rapid ventricular response, and mild tachybrady syndrome. The patient was having up to 3.5-second pauses in the hospital while she was in for her COPD exacerbation. She was on rate-control agents. The patient states that yesterday evening around 3 o'clock in the morning, she was at home, she got profoundly short of breath, she felt her heart racing and pounding and became uncomfortable and decided to come to the emergency room. On arrival to the emergency room, the patient was treated with COPD exacerbation. Her rate control agents of diltiazem 240 mg a day and Toprol were continued. In speaking with the patient tonight, she is actually feeling much better. She is significantly less short of breath. She denies any angina. She denies any lightheadedness or dizziness. She denies any significant orthopnea. The patient has chronic shortness of breath from her COPD. She is chronically on oxygen. PAST MEDICAL HISTORY: Significant for atrial fibrillation, not on anticoagulation because of history of GI bleed; history of bowel obstruction; heart failure with preserved ejection fraction; aortic valve replacement and coronary artery bypass surgery; hypertension; depression; chronic pain syndrome. OUTPATIENT MEDICATIONS: 1. Albuterol inhaler. 2. DuoNeb 1 puff q.6 hours p.r.n. 3. Alprazolam. 4. Aspirin 81 mg a day. 5. Atorvastatin 80 mg a day. 6. Diltiazem 240 mg a day. 7. Ezetimibe (Zetia) tablets 10 mg daily. 8. Glyburide 2.5 mg a day. 9. Guaifenesin as directed. 10. Insulin as directed. 11. The patient may also be on digoxin. ALLERGIES: To SHELLFISH and IODINE. FAMILY HISTORY: Noncontributory. SOCIAL HISTORY: The patient is a previous smoker. She used to be a heavy drinker. She denies both of those at this time. She is currently on disability and lives with her daughter. PHYSICAL EXAM: Height is 5 feet 4 inches, weight 242 pounds. Heart rate ranges anywhere from 70 to 130 beats per minute, heart rate now is 100, heart rate is 120 at rest; temperature 98.2; blood pressure 96/72. Sclerae anicteric. Oropharynx is pink without erythema. Carotids are 2+ without bruits. JVD is normal. Thyroid is normal. Cardiac Exam: S1, S2, distant heart sounds. No obvious murmurs or rubs. Lungs overall have depressed lung expansion. There are mild rhonchi on exam. Abdomen is soft, nontender, and nondistended with normoactive bowel sounds. Extremities show no edema. She has 2+ pulses throughout. The patient is awake, alert, and oriented. She moves all 4 extremities equally. LABORATORY DATA: White count 9.7, hemoglobin 10, hematocrit 34, platelet count 223. Chemistries within normal limits. Troponin is negative x1. BNP is at 600. IMPRESSION AND PLAN: The patient is a 67-year-old female with a history of chronic obstructive pulmonary disease, history of smoking, who was admitted to the hospital with shortness of breath and chronic obstructive pulmonary disease exacerbation. The patient was also found to have atrial fibrillation with rapid ventricular response. The patient has had episodes of atrial fibrillation in the past. She denies any true lightheadedness, dizziness, or syncope. While she was in the hospital last week, she was having 3.5-second pauses and her medications were adjusted for that. For now, I had a long discussion with the patient regarding her atrial fibrillation and her desire to be more active. For now, my recommendation is to have a single-chamber pacemaker installed. This will allow against low heart rates. The patient also may benefit from AV node ablation for complete control of her heart rate. The patient would like to discuss this with her daughter and make further recommendations. [id number]/[facility] #: [id number] [facility]A HOSPITALBrendan
[2018-03-06] MEDS: Atorvastatin* 80 MG TAB PO SCH (21:42)
[2018-03-06] MEDS: traZODone TAB* 50 MG TAB PO SCH (21:43)
[2018-03-06] MEDS: ALPRAZolam TAB* 0.25 MG PO PRN (21:43)
[2018-03-06] MEDS: Pregabalin CAP(*) 50 MG PO SCH (21:43)
[2018-03-07] MEDS: Diltiazem TAB* 60 MG PO SCH ×5 (01:57→23:37)
[2018-03-07] MEDS: Levothyroxine TAB* 175 MCG TAB PO SCH (04:58)
[2018-03-07] MEDS: HYDROcodone/ACETAMIN 5-325 MG* 1 TAB PO PRN ×3 (04:58→20:33)
[2018-03-07] MEDS: Torsemide TAB* 20 MG PO SCH (08:16)
[2018-03-07] MEDS: Sertraline* 100 MG TAB PO SCH (08:16)
[2018-03-07] MEDS: Insulin LISPRO* 1 UNITS UNIT SUBCUT SCH ×4 (08:16→20:33)
[2018-03-07] MEDS: Aspirin EC TAB* 81 MG TAB.EC PO SCH (08:16)
[2018-03-07] MEDS: Omeprazole CAP* 20 MG PO SCH (08:16)
[2018-03-07] MEDS: Ezetimibe TAB* 10 MG PO SCH (08:16)
[2018-03-07] MEDS ORDERED: Tiotropium CAP.INH* CAP.INH/18 MCG (USE ORDER SET !) INH SCH (09:00)
[2018-03-07] MEDS ORDERED: Spiriva Inhaler DEVICE* 1 EACH DEVICE INH ONE (09:00)
[2018-03-07] MEDS: Tiotropium CAP.INH* CAP.INH/18 MCG (USE ORDER SET !) INH SCH (10:51)
--- NOTE | 2018-03-07 11:39 | PN ---
Subjective Date of Service: 03/07/18 Interval History: Pt is feeling well today. She however continues to have a moist loose cough. She is bringing up some sputum. No significant wheezing. Generally however, her breathing is improved. She is leaning towards getting the pacemaker as recommended by Dr. Chen. Her daughter however does not want her to have the procedure done here. Currently they are waiting for Dr. Chen to come to talk to the family. Objective Active Medications: Hydrocodone Bitart/Acetaminophen ([place] 5-325 Tab*) 1 tab PO Q4H PRN PRN Reason: PAIN Last Admin: 03/07/18 04:58 Dose: 1 tab Albuterol (Ventolin 2.5 Mg/3 Ml Neb.Lorie*) 2.5 mg INH Q4H PRN PRN Reason: SOB/WHEEZING Alprazolam (Xanax Tab*) 0.25 mg PO TID PRN PRN Reason: ANXIETY Last Admin: 03/06/18 21:43 Dose: 0.25 mg Aspirin (Aspirin Ec Tab*) 81 mg PO DAILY JL Last Admin: 03/07/18 08:16 Dose: 81 mg Atorvastatin Calcium (Lipitor*) 80 mg PO BEDTIME JL Last Admin: 03/06/18 21:42 Dose: 80 mg Benzonatate (Tessalon Cap*) 200 mg PO TID PRN PRN Reason: cough Dextrose (D50w Syringe 50 Ml*) 12.5 gm IV PUSH .FOR FS < 60 - SS PRN PRN Reason: FS < 60 Diltiazem HCl (Cardizem Tab*) 60 mg PO Q6HR JL Last Admin: 03/07/18 06:30 Dose: 60 mg Ezetimibe (Zetia Tab*) 10 mg PO DAILY JL Last Admin: 03/07/18 08:16 Dose: 10 mg Insulin Human Lispro (Humalog*) 0 units SUBCUT ACHS JL; Protocol Last Admin: 03/07/18 08:16 Dose: 3 unit Levothyroxine Sodium (Synthroid Tab*) 175 mcg PO 0600 JL Last Admin: 03/07/18 04:58 Dose: 175 mcg Mometasone Furoate (Asmanex 220 Mcg Mdi *) 2 puff INH QPM JL Last Admin: 03/06/18 20:31 Dose: 2 puff Omeprazole (Prilosec Cap*) 40 mg PO DAILY@0730 [facility] Last Admin: 03/07/18 08:16 Dose: 40 mg Pregabalin (Lyrica Cap(*)) 50 mg PO BEDTIME [facility] Last Admin: 03/06/18 21:43 Dose: 50 mg Sertraline HCl (Zoloft*) 200 mg PO DAILY [facility] Last Admin: 03/07/18 08:16 Dose: 200 mg Tiotropium [place] (Spiriva Cap.Inh*) 1 cap INH DAILY [facility] Last Admin: 03/07/18 10:51 Dose: 1 cap Torsemide (Demadex*) 40 mg PO DAILY [facility] Last Admin: 03/07/18 08:16 Dose: 40 mg Trazodone HCl (Desyrel Tab*) 100 mg PO BEDTIME [facility] Last Admin: 03/06/18 21:43 Dose: 100 mg Vital Signs - 8 hr 03/07/18 03/07/18 03/07/18 04:35 04:58 07:42 Temperature 97.5 F 97.9 F Pulse Rate 91 74 Respiratory 20 18 18 Rate Blood Pressure 113/79 91/59 (mmHg) O2 Sat by Pulse 99 96 Oximetry 03/07/18 03/07/18 03/07/18 08:00 08:17 10:52 Temperature Pulse Rate 72 Respiratory 20 18 16 Rate Blood Pressure (mmHg) O2 Sat by Pulse 98 Oximetry Oxygen Devices in Use Now: Nasal Cannula Appearance: Middle aged obese female sitting on the edge of the bed, NAD Eyes: No Scleral Icterus Ears/Nose/Mouth/Throat: Mucous Membranes Moist Respiratory: Symmetrical Chest Expansion and Respiratory Effort, Clear to Auscultation Cardiovascular: NL Sounds; No Murmurs; No JVD, - - irregularly irregular, controlled rate; 2-3+ B/L LE edema Abdominal: NL Sounds; No Tenderness; No Distention Extremities: No Clubbing, Cyanosis Skin: No Nodules or Sclerosis Neurological: Alert and Oriented x 3 Result Diagrams: 03/06/18 10:51 03/06/18 10:51 Microbiology and Other Data: Microbiology 03/06/18 11:15 Aerobic Blood Culture - Preliminary Blood Line No Growth Day 1 Anaerobic Blood Culture - Preliminary No Growth Day 1 Assess/Plan/Problems-Anthonying Ms Ziegler is a 67 yo F who has a h/o persistent afib, COPD with chronic hypoxic respiratory failure on 2L O2 continuously who presented to the ER with c /o the sudden onset of dyspnea and was found to be in rapid afib. - Patient Problems (1) Atrial fibrillation with RVR Current Visit: Yes Status: Acute Code(s): I48.91 - UNSPECIFIED ATRIAL FIBRILLATION SNOMED Code(s): 076664554585679 Comment: HR is controlled currently. She is back on her usual dose of diltiazem but she is not on her usual dose of metoprolol. Will wait for further recommendations from Dr. Chen. She will likely benefit from a single chamber pacer but she does not want to have the procedure done here. Xarelto is on hold for possible pacer. (2) Acute on chronic diastolic heart failure Current Visit: Yes Status: Acute Code(s): I50.33 - ACUTE ON CHRONIC DIASTOLIC (CONGESTIVE) HEART FAILURE SNOMED Code(s): 360250562 Comment: The patient's weight is up from her last hospitalization. She does not appear to be overly fluid overloaded. I have resumed her usual dose of torsemide. Will monitor her urine output. Respiratory status is stable. (3) COPD (chronic obstructive pulmonary disease) Current Visit: Yes Status: Acute Code(s): J44.9 - CHRONIC OBSTRUCTIVE PULMONARY DISEASE, UNSPECIFIED SNOMED Code(s): 96798833 Comment: Stable and without signs of exacerbation. Continue current inhaler regimen. (4) Left leg DVT Current Visit: Yes Status: Acute Code(s): I82.402 - ACUTE EMBOLISM AND THOMBOS UNSP DEEP VEINS OF L LOW EXTREM SNOMED Code(s): 235911350 Comment: Pt with LLE DVT. She has an IVC filter as when she previously was on anticoagulation she would develop GI bleeding. She will need to be restarted on xarelto as soon as possible but watch for bleeding. If she ultimately becomes stable on xarelto could consider taking out the filter. (5) DVT prophylaxis Current Visit: Yes Status: Acute Code(s): IPH2883 - SNOMED Code(s): 838542389 Comment: Xarelto (6) Full code status Current Visit: Yes Status: Acute Code(s): Z78.9 - OTHER SPECIFIED HEALTH STATUS SNOMED Code(s): 205147756
[2018-03-07] MEDS ORDERED: Diazepam TAB(*) 5 MG PO ONE (17:19)
[2018-03-07] MEDS ORDERED: NS 0.9% 1000 ML* 1,000 ML IV SCH (17:30)
[2018-03-07] MEDS ORDERED: ceFAZolin 1 GM/10 ML flush(*) SYRINGE for pocket flush (cardiology) FLUSH ONE (19:30)
[2018-03-07] MEDS ORDERED: ceFAZolin 2 GM PREMIX in ORs 2 GM/50 ML BAG IVPB ONE (19:30)
[2018-03-07] MEDS: Mometasone 220 MCG MDI INH SCH (20:20)
[2018-03-07] MEDS: traZODone TAB* 50 MG TAB PO SCH (20:32)
[2018-03-07] MEDS: Atorvastatin* 80 MG TAB PO SCH (20:32)
[2018-03-07] MEDS: Pregabalin CAP(*) 50 MG PO SCH (20:33)
[2018-03-07] MEDS: ALPRAZolam TAB* 0.25 MG PO PRN (20:33)
[2018-03-08] MEDS ORDERED: NS 0.9% 1000 ML* 1,000 ML IV SCH
[2018-03-08] MEDS: Levothyroxine TAB* 175 MCG TAB PO SCH (05:11)
[2018-03-08] MEDS: Diltiazem TAB* 60 MG PO SCH ×4 (05:11→23:35)
[2018-03-08] MEDS: HYDROcodone/ACETAMIN 5-325 MG* 1 TAB PO PRN ×2 (05:11→20:17)
[2018-03-08 05:42] LABS: Urine Appearance Cloudy; Urine Blood Negative (Negative); Urine Color Yellow; Urine Ketones Negative (Negative); Urine Protein Negative (Negative); Urine Red Blood Cell Absent (Absent); Urine Specific Gravity 1.016 (1.010-1.030); Urine Urobilinogen Negative (Negative); Urine White Blood Cell 2+(11-20/hpf) (Absent)
[2018-03-08] MEDS ORDERED: ceFAZolin 1 GM/10 ML flush(*) SYRINGE for pocket flush (cardiology) FLUSH ONE (07:00)
[2018-03-08] MEDS ORDERED: ceFAZolin 2 GM PREMIX in ORs 2 GM/50 ML BAG IVPB ONE (07:00)
[2018-03-08] MEDS ORDERED: Diazepam TAB(*) 5 MG PO ONE ×2 (07:00→14:36)
[2018-03-08] MEDS: Tiotropium CAP.INH* CAP.INH/18 MCG (USE ORDER SET !) INH SCH (08:10)
[2018-03-08] MEDS: Insulin LISPRO* 1 UNITS UNIT SUBCUT SCH ×4 (09:53→20:18)
[2018-03-08] MEDS: Aspirin EC TAB* 81 MG TAB.EC PO SCH (12:28)
[2018-03-08] MEDS: Torsemide TAB* 20 MG PO SCH (12:28)
[2018-03-08] MEDS: Sertraline* 100 MG TAB PO SCH (12:28)
[2018-03-08] MEDS: Ezetimibe TAB* 10 MG PO SCH (12:28)
[2018-03-08] MEDS: Omeprazole CAP* 20 MG PO SCH (12:36)
--- NOTE | 2018-03-08 14:19 | PN ---
Subjective Date of Service: 03/08/18 Interval History: Pt is feeling well. She has decided to have her pacer placed here however it is on hold until tomorrow per Dr. Morris. She states she is still coughing and bringing up sputum. No wheezing. Colostomy is functioning appropriately. Objective Active Medications: Hydrocodone Bitart/Acetaminophen ([place] 5-325 Tab*) 1 tab PO Q4H PRN PRN Reason: PAIN Last Admin: 03/08/18 05:11 Dose: 1 tab Albuterol (Ventolin 2.5 Mg/3 Ml Neb.Lorie*) 2.5 mg INH Q4H PRN PRN Reason: SOB/WHEEZING Alprazolam (Xanax Tab*) 0.25 mg PO TID PRN PRN Reason: ANXIETY Last Admin: 03/07/18 20:33 Dose: 0.25 mg Aspirin (Aspirin Ec Tab*) 81 mg PO DAILY [facility] Last Admin: 03/08/18 12:28 Dose: 81 mg Atorvastatin Calcium (Lipitor*) 80 mg PO BEDTIME [facility] Last Admin: 03/07/18 20:32 Dose: 80 mg Benzonatate (Tessalon Cap*) 200 mg PO TID PRN PRN Reason: cough Dextrose (D50w Syringe 50 Ml*) 12.5 gm IV PUSH .FOR FS < 60 - SS PRN PRN Reason: FS < 60 Diltiazem HCl (Cardizem Tab*) 60 mg PO Q6HR [facility] Last Admin: 03/08/18 12:28 Dose: 60 mg Ezetimibe (Zetia Tab*) 10 mg PO DAILY [facility] Last Admin: 03/08/18 12:28 Dose: 10 mg Insulin Human Lispro (Humalog*) 0 units SUBCUT ACHS [facility]; Protocol Last Admin: 03/08/18 13:44 Dose: Not Given Levothyroxine Sodium (Synthroid Tab*) 175 mcg PO 0600 [facility] Last Admin: 03/08/18 05:11 Dose: 175 mcg Mometasone Furoate (Asmanex 220 Mcg Mdi *) 2 puff INH QPM [facility] Last Admin: 03/07/18 20:20 Dose: 2 puff Omeprazole (Prilosec Cap*) 40 mg PO DAILY@0730 [facility] Last Admin: 03/08/18 12:36 Dose: 40 mg Pregabalin (Lyrica Cap(*)) 50 mg PO BEDTIME [facility] Last Admin: 03/07/18 20:33 Dose: 50 mg Sertraline HCl (Zoloft*) 200 mg PO DAILY [facility] Last Admin: 03/08/18 12:28 Dose: 200 mg Tiotropium [place] (Spiriva Cap.Inh*) 1 cap INH DAILY [facility] Last Admin: 03/08/18 08:10 Dose: 1 cap Torsemide (Demadex*) 40 mg PO DAILY [facility] Last Admin: 03/08/18 12:28 Dose: 40 mg Trazodone HCl (Desyrel Tab*) 100 mg PO BEDTIME [facility] Last Admin: 03/07/18 20:32 Dose: 100 mg Vital Signs - 8 hr 03/08/18 03/08/18 03/08/18 07:11 08:07 08:11 Temperature 97.0 F Pulse Rate 82 76 Respiratory 22 22 Rate Blood Pressure 94/59 (mmHg) O2 Sat by Pulse 99 96 Oximetry 03/08/18 03/08/18 03/08/18 08:42 11:19 12:14 Temperature 97.4 F Pulse Rate 78 Respiratory 22 20 Rate Blood Pressure 99/60 104/55 (mmHg) O2 Sat by Pulse 96 Oximetry Oxygen Devices in Use Now: Nasal Cannula Appearance: Middle aged obese female sitting up in bed, NAD Eyes: No Scleral Icterus Ears/Nose/Mouth/Throat: Mucous Membranes Moist Respiratory: Symmetrical Chest Expansion and Respiratory Effort, Clear to Auscultation Cardiovascular: NL Sounds; No Murmurs; No JVD, - - irregularly irregular, controlled rate; 1-2+ LE edema Abdominal: NL Sounds; No Tenderness; No Distention Extremities: No Clubbing, Cyanosis Skin: No Rash or Ulcers Neurological: Alert and Oriented x 3 Result Diagrams: 03/06/18 10:51 03/06/18 10:51 Microbiology and Other Data: Microbiology 03/06/18 11:15 Aerobic Blood Culture - Preliminary Blood Line No Growth Day 1 Anaerobic Blood Culture - Preliminary No Growth Day 1 Assess/Plan/Problems-Amaury Ms Ziegler is a 67 yo F who has a h/o persistent afib, COPD with chronic hypoxic respiratory failure on 2L O2 continuously who presented to the ER with c /o the sudden onset of dyspnea and was found to be in rapid afib. - Patient Problems (1) Atrial fibrillation with RVR Current Visit: Yes Status: Acute Code(s): I48.91 - UNSPECIFIED ATRIAL FIBRILLATION SNOMED Code(s): 931250199080904 Comment: HR is controlled currently on diltiazem 60mg q6hr. She has not been receiving her metoprolol dose. Plan is for pacer insertion tomorrow. Xarelto is on hold. (2) Acute on chronic diastolic heart failure Current Visit: Yes Status: Acute Code(s): I50.33 - ACUTE ON CHRONIC DIASTOLIC (CONGESTIVE) HEART FAILURE SNOMED Code(s): 896668682 Comment: The patient's weight is up from her last hospitalization (weight not obtained today). She does not appear to be overtly fluid overloaded. She received her torsemide late today and will be held until after her pacer insertion tomorrow. I have ordered daily weights and will monitor her UOP. (3) COPD (chronic obstructive pulmonary disease) Current Visit: Yes Status: Acute Code(s): J44.9 - CHRONIC OBSTRUCTIVE PULMONARY DISEASE, UNSPECIFIED SNOMED Code(s): 05970273 Comment: Stable and without signs of exacerbation. Continue current inhaler regimen. She has been coughing and bringing up sputum but no signs of infection. (4) Left leg DVT Current Visit: Yes Status: Acute Code(s): I82.402 - ACUTE EMBOLISM AND THOMBOS UNSP DEEP VEINS OF L LOW EXTREM SNOMED Code(s): 556975725 Comment: Pt with LLE DVT. She has an IVC filter as when she previously was on anticoagulation she would develop GI bleeding. She will need to be restarted on xarelto as soon as possible but watch for bleeding. If she ultimately becomes stable on xarelto could consider taking out the filter. (5) DVT prophylaxis Current Visit: Yes Status: Acute Code(s): QPM3541 - SNOMED Code(s): 103256937 Comment: Xarelto-on hold for pacer insertion (6) Full code status Current Visit: Yes Status: Acute Code(s): Z78.9 - OTHER SPECIFIED HEALTH STATUS SNOMED Code(s): 100037026
--- NOTE | 2018-03-08 14:33 | PN ---
Subjective Date of Service: 03/08/18 - CC: SOB Interval History: Breathing is better. No dizziness. Denies palpitations. Uses O2 @ home, able to lie flat. Medications Active Medications: Hydrocodone Bitart/Acetaminophen ([place] 5-325 Tab*) 1 tab PO Q4H PRN PRN Reason: PAIN Last Admin: 03/08/18 05:11 Dose: 1 tab Albuterol (Ventolin 2.5 Mg/3 Ml Neb.Lorie*) 2.5 mg INH Q4H PRN PRN Reason: SOB/WHEEZING Alprazolam (Xanax Tab*) 0.25 mg PO TID PRN PRN Reason: ANXIETY Last Admin: 03/07/18 20:33 Dose: 0.25 mg Aspirin (Aspirin Ec Tab*) 81 mg PO DAILY [facility] Last Admin: 03/08/18 12:28 Dose: 81 mg Atorvastatin Calcium (Lipitor*) 80 mg PO BEDTIME [facility] Last Admin: 03/07/18 20:32 Dose: 80 mg Benzonatate (Tessalon Cap*) 200 mg PO TID PRN PRN Reason: cough Dextrose (D50w Syringe 50 Ml*) 12.5 gm IV PUSH .FOR FS < 60 - SS PRN PRN Reason: FS < 60 Diltiazem HCl (Cardizem Tab*) 60 mg PO Q6HR [facility] Last Admin: 03/08/18 12:28 Dose: 60 mg Ezetimibe (Zetia Tab*) 10 mg PO DAILY [facility] Last Admin: 03/08/18 12:28 Dose: 10 mg Insulin Human Lispro (Humalog*) 0 units SUBCUT ACHS [facility]; Protocol Last Admin: 03/08/18 13:44 Dose: Not Given Levothyroxine Sodium (Synthroid Tab*) 175 mcg PO 0600 [facility] Last Admin: 03/08/18 05:11 Dose: 175 mcg Mometasone Furoate (Asmanex 220 Mcg Mdi *) 2 puff INH QPM [facility] Last Admin: 03/07/18 20:20 Dose: 2 puff Omeprazole (Prilosec Cap*) 40 mg PO DAILY@0730 [facility] Last Admin: 03/08/18 12:36 Dose: 40 mg Pregabalin (Lyrica Cap(*)) 50 mg PO BEDTIME [facility] Last Admin: 03/07/18 20:33 Dose: 50 mg Sertraline HCl (Zoloft*) 200 mg PO DAILY [facility] Last Admin: 03/08/18 12:28 Dose: 200 mg Tiotropium [place] (Spiriva Cap.Inh*) 1 cap INH DAILY [facility] Last Admin: 03/08/18 08:10 Dose: 1 cap Torsemide (Demadex*) 40 mg PO DAILY [facility] Last Admin: 03/08/18 12:28 Dose: 40 mg Trazodone HCl (Desyrel Tab*) 100 mg PO BEDTIME [facility] Last Admin: 03/07/18 20:32 Dose: 100 mg Objective Vital Signs: Temp Pulse Resp BP Pulse Ox 97.4 F 78 20 104/55 96 03/08/18 11:19 03/08/18 11:19 03/08/18 11:19 03/08/18 12:14 03/08/18 11:19 Oxygen Devices in Use Now: Nasal Cannula Appearance: short, overweight older woman, O2 on, comfortable talking with sons. Eyes: No Scleral Icterus, PERRLA Ears/Nose/Mouth/Throat: Clear Oropharnyx, Mucous Membranes Moist Neck: NL Appearance and Movements; NL JVP, Trachea Midline, No Thyroid Enlargement, Masses - obese. Respiratory: Symmetrical Chest Expansion and Respiratory Effort - thick coarse rhonci, lungs clear after coughing. Cardiovascular: NL Sounds; No Murmurs; No JVD - irregualarly irregular. Abdominal: - - obese, soft, non tender. Extremities: No Clubbing, Cyanosis Skin: No Rash or Ulcers Neurological: Alert and Oriented x 3 Lines/Tubes/Other Access: Clean, Dry and Intact Peripheral IV Nutrition: Taking PO's Laboratory Results: 03/06/18 10:51 03/06/18 10:51 Total Bilirubin 0.60 mg/dL (0.2-1.0) 03/06/18 10:51 AST 19 U/L (13-39) 03/06/18 10:51 ALT 29 U/L (7-52) 03/06/18 10:51 Alkaline Phosphatase 73 U/L (34-104) 03/06/18 10:51 B-Natriuretic Peptide 911 pg/mL (-100) H 03/06/18 10:51 Total Protein 6.7 g/dL (6.4-8.9) 03/06/18 10:51 Albumin 3.4 g/dL (3.2-5.2) 03/06/18 10:51 Globulin 3.3 g/dL (2-4) 03/06/18 10:51 Albumin/Globulin Ratio 1.0 (1-3) 03/06/18 10:51 TSH 46.99 mcIU/mL (0.34-5.60) H 03/06/18 10:51 03/06/18 10:51 Troponin I 0.01 EKG Data: Tele: afib, RVR alternating with up to 2 second pauses. ECG's reviewed: Last ECG in [facility] was 2012. Assessment/Plan 67 yo female with COPD, hx PE and IVC filter and chronic afib admitted with SOB. Afib is tachy/olesya, agree with Dr Chen's recommendations on single chamber pacer implant and potentially AVN ablation in the future if medications inadequate for rate control. Tachybrady: Pacer in AM . OK to continue with current doses of short acting diltiazem, can increase post pacer implant. Afib: Resume Xarelto/NOAC post implant, I am aware of hx GI bleed with coumodin in the past. SOB: Appears primarily due to COPD, no fevers and bringing up clear/white phlegm therefore OK to proceed with pacer implant at this time.
[2018-03-08] MEDS: traZODone TAB* 50 MG TAB PO SCH (20:17)
[2018-03-08] MEDS: ALPRAZolam TAB* 0.25 MG PO PRN (20:17)
[2018-03-08] MEDS: Pregabalin CAP(*) 50 MG PO SCH (20:17)
[2018-03-08] MEDS: Atorvastatin* 80 MG TAB PO SCH (20:17)
[2018-03-08] MEDS: Mometasone 220 MCG MDI INH SCH (20:55)
[2018-03-09] MEDS ORDERED: NS 0.9% 1000 ML* 1,000 ML IV SCH (04:00)
[2018-03-09] MEDS: Diltiazem TAB* 60 MG PO SCH ×4 (05:22→23:26)
[2018-03-09] MEDS: Levothyroxine TAB* 175 MCG TAB PO SCH (05:22)
[2018-03-09] MEDS: HYDROcodone/ACETAMIN 5-325 MG* 1 TAB PO PRN ×3 (05:22→22:10)
[2018-03-09] MEDS ORDERED: ceFAZolin* 2 GM* ONE DOSE (Duplex) IVPB (07:00)
[2018-03-09] MEDS ORDERED: ceFAZolin VIAL 1 GM in NS *SYRINGE * * 10 ML ONE ×2 (07:00→08:00)
[2018-03-09] MEDS ORDERED: Diazepam TAB(*) 5 MG PO ONE (07:00)
[2018-03-09] MEDS: Torsemide TAB* 20 MG PO SCH (07:09)
[2018-03-09] MEDS: Insulin LISPRO* 1 UNITS UNIT SUBCUT SCH ×4 (07:46→20:33)
[2018-03-09] MEDS: Omeprazole CAP* 20 MG PO SCH (07:46)
[2018-03-09] MEDS: Ezetimibe TAB* 10 MG PO SCH (07:46)
[2018-03-09] MEDS: Aspirin EC TAB* 81 MG TAB.EC PO SCH (07:47)
[2018-03-09] MEDS: Sertraline* 100 MG TAB PO SCH (07:47)
[2018-03-09] MEDS: Tiotropium CAP.INH* CAP.INH/18 MCG (USE ORDER SET !) INH SCH (08:10)
[2018-03-09] MEDS ORDERED: Midazolam* 1 MG/ML 5 ML VIAL (5 MG) ONE (08:40)
[2018-03-09] MEDS ORDERED: fentaNYL* 50 MCG/ML 2 ML VIAL (100 MCG VIAL) ONE (08:40)
[2018-03-09] MEDS ORDERED: Lidocaine 1% INJ* 10 MG/ML 30 ML SDV ONE ×2 (08:40→09:46)
[2018-03-09] MEDS ORDERED: predniSONE TAB* 20 MG PO ONE (09:00)
[2018-03-09] MEDS ORDERED: diPHENhydraMINE IV* 50 MG/ML 1 ml VIAL (BENADRYL) ONE (09:27)
[2018-03-09] MEDS ORDERED: Naloxone* 0.4 MG/ML 1 ML VIAL ONE (09:28)
[2018-03-09] MEDS ORDERED: Flumazenil* 0.1 MG/ML 5 ML MDV ONE (09:29)
[2018-03-09] MEDS ORDERED: Iohexol 300* (CONTRAST) 10 ML SDV ONE (09:30)
[2018-03-09] MEDS ORDERED: Acetaminophen TAB* 325 MG PO PRN (11:15)
--- NOTE | 2018-03-09 11:32 | PN ---
Subjective Date of Service: 03/09/18 - CC: JHAVERI, Interval History: Breathing is progressively better. No dizziness. Denies palpitations. No new c/o. Medications Active Medications: Hydrocodone Bitart/Acetaminophen ([place] 5-325 Tab*) 1 tab PO Q4H PRN PRN Reason: PAIN Last Admin: 03/09/18 05:22 Dose: 1 tab Albuterol (Ventolin 2.5 Mg/3 Ml Neb.Lorie*) 2.5 mg INH Q4H PRN PRN Reason: SOB/WHEEZING Alprazolam (Xanax Tab*) 0.25 mg PO TID PRN PRN Reason: ANXIETY Last Admin: 03/08/18 20:17 Dose: 0.25 mg Aspirin (Aspirin Ec Tab*) 81 mg PO DAILY [facility] Last Admin: 03/09/18 07:47 Dose: 81 mg Atorvastatin Calcium (Lipitor*) 80 mg PO BEDTIME [facility] Last Admin: 03/08/18 20:17 Dose: 80 mg Benzonatate (Tessalon Cap*) 200 mg PO TID PRN PRN Reason: cough Dextrose (D50w Syringe 50 Ml*) 12.5 gm IV PUSH .FOR FS < 60 - SS PRN PRN Reason: FS < 60 Diltiazem HCl (Cardizem Tab*) 60 mg PO Q6HR [facility] Last Admin: 03/09/18 05:22 Dose: 60 mg Ezetimibe (Zetia Tab*) 10 mg PO DAILY [facility] Last Admin: 03/09/18 07:46 Dose: 10 mg Sodium Chloride (Ns 0.9% 1000 Ml*) 1,000 mls @ 100 mls/hr IV PER RATE [facility] Last Admin: 03/09/18 05:22 Dose: 100 mls/hr Insulin Human Lispro (Humalog*) 0 units SUBCUT ACHS [facility]; Protocol Last Admin: 03/09/18 07:46 Dose: Not Given Levothyroxine Sodium (Synthroid Tab*) 175 mcg PO 0600 [facility] Last Admin: 03/09/18 05:22 Dose: 175 mcg Mometasone Furoate (Asmanex 220 Mcg Mdi *) 2 puff INH QPM [facility] Last Admin: 03/08/18 20:55 Dose: 2 puff Omeprazole (Prilosec Cap*) 40 mg PO DAILY@0730 [facility] Last Admin: 03/09/18 07:46 Dose: 40 mg Pregabalin (Lyrica Cap(*)) 50 mg PO BEDTIME [facility] Last Admin: 03/08/18 20:17 Dose: 50 mg Sertraline HCl (Zoloft*) 200 mg PO DAILY [facility] Last Admin: 03/09/18 07:47 Dose: 200 mg Tiotropium [place] (Spiriva Cap.Inh*) 1 cap INH DAILY [facility] Last Admin: 03/09/18 08:10 Dose: 1 cap Torsemide (Demadex*) 40 mg PO DAILY [facility] Last Admin: 03/09/18 07:09 Dose: Not Given Trazodone HCl (Desyrel Tab*) 100 mg PO BEDTIME [facility] Last Admin: 03/08/18 20:17 Dose: 100 mg Objective Vital Signs: Temp Pulse Resp BP Pulse Ox 98.6 F 70 14 117/62 98 03/09/18 04:08 03/09/18 08:11 03/09/18 08:11 03/09/18 04:08 03/09/18 08:11 Oxygen Devices in Use Now: Nasal Cannula Appearance: short, overweight older woman, O2 on walking in room. Eyes: No Scleral Icterus, PERRLA Ears/Nose/Mouth/Throat: Clear Oropharnyx, Mucous Membranes Moist Neck: NL Appearance and Movements; NL JVP, Trachea Midline, No Thyroid Enlargement, Masses - obese. Respiratory: Symmetrical Chest Expansion and Respiratory Effort - thick coarse rhonci, lungs clear after coughing., - - clear but distant bs today. Cardiovascular: NL Sounds; No Murmurs; No JVD - irregualarly irregular. Abdominal: - - obese, soft, non tender. Extremities: No Clubbing, Cyanosis Skin: No Rash or Ulcers Neurological: Alert and Oriented x 3 Lines/Tubes/Other Access: Clean, Dry and Intact Peripheral IV Nutrition: Taking PO's Laboratory Results: 03/06/18 10:51 03/06/18 10:51 Total Bilirubin 0.60 mg/dL (0.2-1.0) 03/06/18 10:51 AST 19 U/L (13-39) 03/06/18 10:51 ALT 29 U/L (7-52) 03/06/18 10:51 Alkaline Phosphatase 73 U/L (34-104) 03/06/18 10:51 B-Natriuretic Peptide 911 pg/mL (-100) H 03/06/18 10:51 Total Protein 6.7 g/dL (6.4-8.9) 03/06/18 10:51 Albumin 3.4 g/dL (3.2-5.2) 03/06/18 10:51 Globulin 3.3 g/dL (2-4) 03/06/18 10:51 Albumin/Globulin Ratio 1.0 (1-3) 03/06/18 10:51 TSH 46.99 mcIU/mL (0.34-5.60) H 03/06/18 10:51 03/06/18 10:51 Troponin I 0.01 EKG Data: afib to atrial flutter in pacer lab. Assessment/Plan 67 yo female with Afib, COPD, hx PE and IVC filter admitted with SOB. I discussed the case with Dr Dinero, pt's regular asparagus cutter yesterday. She was in NSR in 2017, after discussion the plan was to implant a dual chamber device with aim of CV, possible EP procedure. Today pt went from afib to flutter during pacer implant. Tachybrady: s/p dual chamber pacer, in atrial flutter 2:1 block. Increase diltiazem dose for V rate control. If able to avoid resuming metoprolol may be better for lungs. Resume Xarelto in AM 03/10/18. Kefzol in pt, keflex on discharge. Follow up with Dr Morris for wound check next week. Follow up with Dr Dinero 1-4 weeks.
--- NOTE | 2018-03-09 13:51 | RAD ---
HISTORY: S/P Device Implant COMPARISONS: February 22, 2018 VIEWS: 1: frontal AP view of the chest at 12:25 PM FINDINGS: LINES AND TUBES: A left-sided pacemaker is noted. CARDIOMEDIASTINAL SILHOUETTE: The cardiac silhouette is enlarged. The cardiomediastinal silhouette is otherwise normal for portable technique. PLEURA: The costophrenic angles are sharp. No pleural abnormalities are noted. LUNG PARENCHYMA: There is a diffuse reticular pattern with indistinct pulmonary vessels. ABDOMEN: The upper abdomen is clear. There is no subphrenic gas. BONES AND SOFT TISSUES: No bone or soft tissue abnormalities are noted. IMPRESSION: CARDIOMEGALY WITH PULMONARY INTERSTITIAL EDEMA
--- NOTE | 2018-03-09 15:05 | PN ---
Subjective Date of Service: 03/09/18 Interval History: Pt is feeling ok post pacemaker insertion. She is not happy that she has to use a bedpan. She denies any SOB at this time. She does have discomfort at the pacer insertion site. Objective Active Medications: Acetaminophen (Tylenol Tab*) 650 mg PO Q4H PRN PRN Reason: PAIN Hydrocodone Bitart/Acetaminophen ([place] 5-325 Tab*) 1 tab PO Q4H PRN PRN Reason: PAIN Last Admin: 03/09/18 05:22 Dose: 1 tab Albuterol (Ventolin 2.5 Mg/3 Ml Neb.Lorie*) 2.5 mg INH Q4H PRN PRN Reason: SOB/WHEEZING Alprazolam (Xanax Tab*) 0.25 mg PO TID PRN PRN Reason: ANXIETY Last Admin: 03/08/18 20:17 Dose: 0.25 mg Aspirin (Aspirin Ec Tab*) 81 mg PO DAILY [facility] Last Admin: 03/09/18 07:47 Dose: 81 mg Atorvastatin Calcium (Lipitor*) 80 mg PO BEDTIME [facility] Last Admin: 03/08/18 20:17 Dose: 80 mg Benzonatate (Tessalon Cap*) 200 mg PO TID PRN PRN Reason: cough Dextrose (D50w Syringe 50 Ml*) 12.5 gm IV PUSH .FOR FS < 60 - SS PRN PRN Reason: FS < 60 Diltiazem HCl (Cardizem Tab*) 60 mg PO Q6HR [facility] Last Admin: 03/09/18 12:49 Dose: 60 mg Ezetimibe (Zetia Tab*) 10 mg PO DAILY [facility] Last Admin: 03/09/18 07:46 Dose: 10 mg Cefazolin Sodium 1 gm/ Sodium (Chloride) 50 mls @ 200 mls/hr IVPB Q8H [facility] Stop: 03/10/18 07:14 Insulin Human Lispro (Humalog*) 0 units SUBCUT ACHS [facility]; Protocol Last Admin: 03/09/18 12:49 Dose: 3 unit Levothyroxine Sodium (Synthroid Tab*) 175 mcg PO 0600 [facility] Last Admin: 03/09/18 05:22 Dose: 175 mcg Mometasone Furoate (Asmanex 220 Mcg Mdi *) 2 puff INH QPM [facility] Last Admin: 03/08/18 20:55 Dose: 2 puff Omeprazole (Prilosec Cap*) 40 mg PO DAILY@0730 [facility] Last Admin: 03/09/18 07:46 Dose: 40 mg Pregabalin (Lyrica Cap(*)) 50 mg PO BEDTIME [facility] Last Admin: 03/08/18 20:17 Dose: 50 mg Sertraline HCl (Zoloft*) 200 mg PO DAILY [facility] Last Admin: 03/09/18 07:47 Dose: 200 mg Tiotropium [place] (Spiriva Cap.Inh*) 1 cap INH DAILY [facility] Last Admin: 03/09/18 08:10 Dose: 1 cap Torsemide (Demadex*) 40 mg PO DAILY [facility] Last Admin: 03/09/18 07:09 Dose: Not Given Trazodone HCl (Desyrel Tab*) 100 mg PO BEDTIME [facility] Last Admin: 03/08/18 20:17 Dose: 100 mg Vital Signs - 8 hr 03/09/18 03/09/18 03/09/18 07:51 08:11 08:21 Temperature 97.3 F Pulse Rate 70 73 Respiratory 20 14 18 Rate Blood Pressure 99/72 (mmHg) O2 Sat by Pulse 98 99 Oximetry 03/09/18 03/09/18 03/09/18 12:15 12:16 12:45 Temperature 98.4 F Pulse Rate 122 Respiratory 20 Rate Blood Pressure 116/72 (mmHg) O2 Sat by Pulse 94 95 95 Oximetry 03/09/18 03/09/18 03/09/18 12:46 12:50 13:20 Temperature 97.6 F 97.6 F 98.1 F Pulse Rate 135 135 126 Respiratory 16 16 18 Rate Blood Pressure 118/74 118/74 97/82 (mmHg) O2 Sat by Pulse 94 94 95 Oximetry 03/09/18 03/09/18 13:45 13:53 Temperature 98.1 F Pulse Rate 124 Respiratory 18 Rate Blood Pressure 98/68 (mmHg) O2 Sat by Pulse 94 93 Oximetry Oxygen Devices in Use Now: Nasal Cannula Appearance: Middle aged female sitting up in bed, NAD Eyes: No Scleral Icterus Ears/Nose/Mouth/Throat: Mucous Membranes Moist Respiratory: Symmetrical Chest Expansion and Respiratory Effort, Clear to Auscultation Cardiovascular: NL Sounds; No Murmurs; No JVD, - - irregularly irregular, tachycardic; 2+ LE edema Abdominal: NL Sounds; No Tenderness; No Distention Extremities: No Clubbing, Cyanosis Skin: No Rash or Ulcers Neurological: Alert and Oriented x 3 Result Diagrams: 03/06/18 10:51 03/06/18 10:51 Microbiology and Other Data: Microbiology 03/06/18 11:15 Aerobic Blood Culture - Preliminary Blood Line No Growth Day 1 Anaerobic Blood Culture - Preliminary No Growth Day 1 Assess/Plan/Problems-Billing Ms Ziegler is a 67 yo F who has a h/o persistent afib, COPD with chronic hypoxic respiratory failure on 2L O2 continuously who presented to the ER with c /o the sudden onset of dyspnea and was found to be in rapid afib. - Patient Problems (1) Atrial fibrillation with RVR Current Visit: Yes Status: Acute Code(s): I48.91 - UNSPECIFIED ATRIAL FIBRILLATION SNOMED Code(s): 047047842506805 Comment: HR poorly controlled currently due to delay in administration of diltiazem earlier today for pacer insertion. Resume diltiazem 60mg q6h and monitor for improvement in HR. If not improved can consider digoxin as her BP is soft. Will need to resume xarelto tomorrow AM. (2) UTI (urinary tract infection) Current Visit: Yes Status: Acute Comment: Pt with >100,000 colonies of Ecoli. Pt asymptomatic though with new pacer will treat. Change cefazolin q8hr x3 post pacer to q8hr routine and change to oral at discharge to complete 7 days of tx. (3) Acute on chronic diastolic heart failure Current Visit: Yes Status: Acute Code(s): I50.33 - ACUTE ON CHRONIC DIASTOLIC (CONGESTIVE) HEART FAILURE SNOMED Code(s): 591169025 Comment: Continue torsemide at home dose. May need extra dose due to IVF administed before her pacer but currently she looks relatively euvolemic. (4) COPD (chronic obstructive pulmonary disease) Current Visit: Yes Status: Acute Code(s): J44.9 - CHRONIC OBSTRUCTIVE PULMONARY DISEASE, UNSPECIFIED SNOMED Code(s): 47510638 Comment: Stable and without signs of exacerbation. Continue current inhaler regimen. She has been coughing and bringing up sputum but no signs of infection. (5) Left leg DVT Current Visit: Yes Status: Acute Code(s): I82.402 - ACUTE EMBOLISM AND THOMBOS UNSP DEEP VEINS OF L LOW EXTREM SNOMED Code(s): 072710005 Comment: Pt with LLE DVT. She has an IVC filter. Resume xarelto tomorrow. (6) DVT prophylaxis Current Visit: Yes Status: Acute Code(s): QBV3516 - SNOMED Code(s): 506076413 Comment: Resume xarelto tomorrow. (7) Full code status Current Visit: Yes Status: Acute Code(s): Z78.9 - OTHER SPECIFIED HEALTH STATUS SNOMED Code(s): 638064693
[2018-03-09] MEDS: ceFAZolin 1 GM VIAL(*) 1 GM in NS 0.9% 50 ML* 50 ML IVPB SCH ×2 (16:31→22:09)
[2018-03-09] MEDS: Mometasone 220 MCG MDI INH SCH (19:59)
[2018-03-09] MEDS: ALPRAZolam TAB* 0.25 MG PO PRN (20:32)
[2018-03-09] MEDS: Atorvastatin* 80 MG TAB PO SCH (20:32)
[2018-03-09] MEDS: traZODone TAB* 50 MG TAB PO SCH (20:32)
[2018-03-09] MEDS: Pregabalin CAP(*) 50 MG PO SCH (20:33)
[2018-03-09] MEDS ORDERED: Digoxin IV* 0.5 MG/2 ML AMP (0.25 MG/ML) IV SLOW PU ONE (21:54)
[2018-03-10] MEDS ORDERED: Digoxin IV* 0.5 MG/2 ML AMP (0.25 MG/ML) IV SLOW PU ONE (03:14)
[2018-03-10] MEDS ORDERED: Digoxin IV* 0.5 MG/2 ML AMP (0.25 MG/ML) ONE (03:18)
[2018-03-10] MEDS: HYDROcodone/ACETAMIN 5-325 MG* 1 TAB PO PRN ×3 (05:10→19:37)
[2018-03-10] MEDS: Diltiazem TAB* 60 MG PO SCH (05:10)
[2018-03-10] MEDS: Levothyroxine TAB* 175 MCG TAB PO SCH (05:10)
[2018-03-10 06:34] LABS: ABS Basophils 0.1 10^3/ul (0-0.2); ABS Eosinophils 0.1 10^3/ul (0-0.6); ABS Lymphocytes 1.7 10^3/ul (1.0-4.8); ABS Monocytes 0.7 10^3/ul (0-0.8); ABS Neutrophils 6.3 10^3/ul (1.5-7.7); ABS Nucleated RBC 0 10^3/ul; Eosinophil % 1.1 % (0-6); Hematocrit 27 % (35-47); Hemoglobin 8.3 g/dl (12.0-16.0); Lymphocyte % 18.8 % (25-47); Mean Corpuscular HGB Conc 31 g/dl (31-36); Mean Corpuscular Hemoglobin 24 pg (27-31); Mean Corpuscular Volume 77 fL (80-97); Mean Platelet Volume 8.8 um3 (7.4-10.4); Nucleated Red Blood Cells % 0.1; Platelet Count 160 10^3/ul (150-450); Red Blood Count 3.51 10^6/ul (4.00-5.40); Red Cell Distribution Width 19 % (10.5-15); White Blood Count 8.8 10^3/ul (3.5-10.8)
[2018-03-10] MEDS: ceFAZolin 1 GM VIAL(*) 1 GM in NS 0.9% 50 ML* 50 ML IVPB SCH (06:52)
[2018-03-10] MEDS: Tiotropium CAP.INH* CAP.INH/18 MCG (USE ORDER SET !) INH SCH (07:44)
[2018-03-10] MEDS: Omeprazole CAP* 20 MG PO SCH (08:29)
[2018-03-10] MEDS: Ezetimibe TAB* 10 MG PO SCH (08:29)
[2018-03-10] MEDS: Aspirin EC TAB* 81 MG TAB.EC PO SCH (08:29)
[2018-03-10] MEDS: Sertraline* 100 MG TAB PO SCH (08:30)
[2018-03-10] MEDS: Insulin LISPRO* 1 UNITS UNIT SUBCUT SCH ×4 (08:30→21:54)
[2018-03-10] MEDS: Torsemide TAB* 20 MG PO SCH (08:30)
--- NOTE | 2018-03-10 09:00 | RAD ---
Indication: Device implant. 2 views of the chest demonstrates patient is status post tracer thoracotomy. Cardiomegaly is noted. Left pleural effusion is noted. Pacemaker leads appear in place. No pneumothorax is noted. Interstitial edema is noted. INDICATION: Cardiomegaly with left pleural effusion and left basilar atelectasis. Interstitial edema is noted. Pacemaker leads are in place. Patient status post transsternal thoracotomy.
--- NOTE | 2018-03-10 09:02 | PN ---
Subjective Date of Service: 03/10/18 - CC: tachybrady, afib Interval History: The patient denies SOB. She is aware of heart racing, wonders why. Pt ambulating as of this AM. Mild orthostatic dizziness. Medications Active Medications: Acetaminophen (Tylenol Tab*) 650 mg PO Q4H PRN PRN Reason: PAIN Hydrocodone Bitart/Acetaminophen ([place] 5-325 Tab*) 1 tab PO Q4H PRN PRN Reason: PAIN Last Admin: 03/10/18 08:56 Dose: 1 tab Albuterol (Ventolin 2.5 Mg/3 Ml Neb.Lorie*) 2.5 mg INH Q4H PRN PRN Reason: SOB/WHEEZING Alprazolam (Xanax Tab*) 0.25 mg PO TID PRN PRN Reason: ANXIETY Last Admin: 03/09/18 20:32 Dose: 0.25 mg Aspirin (Aspirin Ec Tab*) 81 mg PO DAILY [facility] Last Admin: 03/10/18 08:29 Dose: 81 mg Atorvastatin Calcium (Lipitor*) 80 mg PO BEDTIME [facility] Last Admin: 03/09/18 20:32 Dose: 80 mg Benzonatate (Tessalon Cap*) 200 mg PO TID PRN PRN Reason: cough Dextrose (D50w Syringe 50 Ml*) 12.5 gm IV PUSH .FOR FS < 60 - SS PRN PRN Reason: FS < 60 Diltiazem HCl (Cardizem Tab*) 60 mg PO Q6HR [facility] Last Admin: 03/10/18 05:10 Dose: 60 mg Ezetimibe (Zetia Tab*) 10 mg PO DAILY [facility] Last Admin: 03/10/18 08:29 Dose: 10 mg Insulin Human Lispro (Humalog*) 0 units SUBCUT ACHS [facility]; Protocol Last Admin: 03/10/18 08:30 Dose: 3 unit Levothyroxine Sodium (Synthroid Tab*) 175 mcg PO 0600 [facility] Last Admin: 03/10/18 05:10 Dose: 175 mcg Mometasone Furoate (Asmanex 220 Mcg Mdi *) 2 puff INH QPM [facility] Last Admin: 03/09/18 19:59 Dose: 2 puff Omeprazole (Prilosec Cap*) 40 mg PO DAILY@0730 [facility] Last Admin: 03/10/18 08:29 Dose: 40 mg Pregabalin (Lyrica Cap(*)) 50 mg PO BEDTIME [facility] Last Admin: 03/09/18 20:33 Dose: 50 mg Sertraline HCl (Zoloft*) 200 mg PO DAILY [facility] Last Admin: 03/10/18 08:30 Dose: 200 mg Tiotropium [place] (Spiriva Cap.Inh*) 1 cap INH DAILY [facility] Last Admin: 03/10/18 07:44 Dose: 1 cap Torsemide (Demadex*) 40 mg PO DAILY [facility] Last Admin: 03/10/18 08:30 Dose: 40 mg Trazodone HCl (Desyrel Tab*) 100 mg PO BEDTIME [facility] Last Admin: 03/09/18 20:32 Dose: 100 mg Objective Vital Signs: Temp Pulse Resp BP Pulse Ox 97.5 F 88 16 97/78 97 03/10/18 07:42 03/10/18 07:45 03/10/18 08:56 03/10/18 07:42 03/10/18 07:45 Oxygen Devices in Use Now: Nasal Cannula Appearance: short, overweight older woman, O2 on, eating breakfast. Eyes: No Scleral Icterus, PERRLA Ears/Nose/Mouth/Throat: Clear Oropharnyx, Mucous Membranes Moist Neck: NL Appearance and Movements; NL JVP, Trachea Midline, No Thyroid Enlargement, Masses - obese. Respiratory: Symmetrical Chest Expansion and Respiratory Effort - thick coarse rhonci, lungs clear after coughing., - - clear but distant bs today. Cardiovascular: NL Sounds; No Murmurs; No JVD - irregualarly irregular. Abdominal: - - obese, soft, non tender. Extremities: No Clubbing, Cyanosis Skin: No Rash or Ulcers, - - incision: no hematoma, infection or ecchymosis. Neurological: Alert and Oriented x 3 Lines/Tubes/Other Access: Clean, Dry and Intact Peripheral IV Nutrition: Taking PO's Laboratory Results: 03/10/18 06:16 03/10/18 06:16 Total Bilirubin 0.60 mg/dL (0.2-1.0) 03/06/18 10:51 AST 19 U/L (13-39) 03/06/18 10:51 ALT 29 U/L (7-52) 03/06/18 10:51 Alkaline Phosphatase 73 U/L (34-104) 03/06/18 10:51 B-Natriuretic Peptide 911 pg/mL (-100) H 03/06/18 10:51 Total Protein 6.7 g/dL (6.4-8.9) 03/06/18 10:51 Albumin 3.4 g/dL (3.2-5.2) 03/06/18 10:51 Globulin 3.3 g/dL (2-4) 03/06/18 10:51 Albumin/Globulin Ratio 1.0 (1-3) 03/06/18 10:51 TSH 46.99 mcIU/mL (0.34-5.60) H 03/06/18 10:51 03/06/18 10:51 Troponin I 0.01 Diagnostic Imaging: CXR 03/09/18 and 03/10/19: Good lead placement, no pneumothorax. EKG Data: Went back from A flutter to fib, rates remain fast. pacer interrogation shows good sensing and pacing thresholds. Assessment/Plan 67 yo female with Afib, COPD, hx PE and IVC filter admitted with SOB. 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 Tachybrady: s/p dual chamber pacer, alternating afib to atrial flutter 2:1 block. Good pacer function and CXR showed no pneumothorax. Rates still high and BP low with diltiazem added back. Consider verapamil , digoxen noted. Anemia (did have blood loss during procedure due to high venous pressures ) could be contributing, consider decrease torsemide short term. OK to resume Xarelto in today. Kefzol in pt, keflex on discharge. Follow up with Dr Morris for wound check next week. Follow up with Dr Dinero 1-4 weeks.
--- NOTE | 2018-03-10 09:24 | PN ---
Subjective Date of Service: 03/10/18 Interval History: No new c/o. Objective Active Medications: Acetaminophen (Tylenol Tab*) 650 mg PO Q4H PRN PRN Reason: PAIN Hydrocodone Bitart/Acetaminophen ([place] 5-325 Tab*) 1 tab PO Q4H PRN PRN Reason: PAIN Last Admin: 03/10/18 08:56 Dose: 1 tab Albuterol (Ventolin 2.5 Mg/3 Ml Neb.Lorie*) 2.5 mg INH Q4H PRN PRN Reason: SOB/WHEEZING Alprazolam (Xanax Tab*) 0.25 mg PO TID PRN PRN Reason: ANXIETY Last Admin: 03/09/18 20:32 Dose: 0.25 mg Aspirin (Aspirin Ec Tab*) 81 mg PO DAILY [facility] Last Admin: 03/10/18 08:29 Dose: 81 mg Atorvastatin Calcium (Lipitor*) 80 mg PO BEDTIME [facility] Last Admin: 03/09/18 20:32 Dose: 80 mg Benzonatate (Tessalon Cap*) 200 mg PO TID PRN PRN Reason: cough Dextrose (D50w Syringe 50 Ml*) 12.5 gm IV PUSH .FOR FS < 60 - SS PRN PRN Reason: FS < 60 Digoxin (Lanoxin Tab*) 0.125 mg PO 1700 [facility] Ezetimibe (Zetia Tab*) 10 mg PO DAILY [facility] Last Admin: 03/10/18 08:29 Dose: 10 mg Insulin Human Lispro (Humalog*) 0 units SUBCUT ACHS [facility]; Protocol Last Admin: 03/10/18 08:30 Dose: 3 unit Levothyroxine Sodium (Synthroid Tab*) 175 mcg PO 0600 [facility] Last Admin: 03/10/18 05:10 Dose: 175 mcg Mometasone Furoate (Asmanex 220 Mcg Mdi *) 2 puff INH QPM [facility] Last Admin: 03/09/18 19:59 Dose: 2 puff Omeprazole (Prilosec Cap*) 40 mg PO DAILY@0730 [facility] Last Admin: 03/10/18 08:29 Dose: 40 mg Pregabalin (Lyrica Cap(*)) 50 mg PO BEDTIME [facility] Last Admin: 03/09/18 20:33 Dose: 50 mg Rivaroxaban (Xarelto(*)) 20 mg PO DAILY [facility] Sertraline HCl (Zoloft*) 200 mg PO DAILY [facility] Last Admin: 03/10/18 08:30 Dose: 200 mg Tiotropium [place] (Spiriva Cap.Inh*) 1 cap INH DAILY [facility] Last Admin: 03/10/18 07:44 Dose: 1 cap Torsemide (Demadex*) 40 mg PO DAILY [facility] Last Admin: 03/10/18 08:30 Dose: 40 mg Trazodone HCl (Desyrel Tab*) 100 mg PO BEDTIME [facility] Last Admin: 03/09/18 20:32 Dose: 100 mg Verapamil HCl ([place] Sr Tab*) 240 mg PO DAILY [facility] Vital Signs - 8 hr 03/10/18 03/10/18 03/10/18 03:23 03:42 04:29 Temperature 97.5 F Pulse Rate 146 146 Respiratory 16 Rate Blood Pressure 105/74 (mmHg) O2 Sat by Pulse 97 97 Oximetry 03/10/18 03/10/18 03/10/18 05:10 07:42 07:45 Temperature 97.5 F Pulse Rate 99 Respiratory 20 16 14 Rate Blood Pressure 97/78 (mmHg) O2 Sat by Pulse 99 97 Oximetry 03/10/18 03/10/18 07:53 08:56 Temperature Pulse Rate Respiratory 16 16 Rate Blood Pressure (mmHg) O2 Sat by Pulse Oximetry Oxygen Devices in Use Now: Nasal Cannula Appearance: Alert, sitting on the edge of her bed. In good spirits. Looks comfortable. Eyes: No Scleral Icterus Neck: NL Appearance and Movements; NL JVP, No Thyroid Enlargement, Masses Respiratory: Symmetrical Chest Expansion and Respiratory Effort, Clear to Percussion, - - Diminished BS BL Cardiovascular: NL Sounds; No Murmurs; No JVD, No Edema, - - irreg Extremities: No Edema, No Clubbing, Cyanosis, - Skin: No Rash or Ulcers, No Nodules or Sclerosis, - Neurological: Alert and Oriented x 3, NL Sensation Result Diagrams: 03/10/18 06:16 03/10/18 06:16 Microbiology and Other Data: Microbiology 03/06/18 11:15 Aerobic Blood Culture - Preliminary Blood Line No Growth Day 1 Anaerobic Blood Culture - Preliminary No Growth Day 1 Assess/Plan/Problems-Billing Ms Ziegler is a 67 yo F who has a h/o persistent afib, COPD with chronic hypoxic respiratory failure on 2L O2 continuously who presented to the ER with c /o the sudden onset of dyspnea and was found to be in rapid afib. - Patient Problems (1) Atrial fibrillation with RVR Current Visit: Yes Status: Acute Code(s): I48.91 - UNSPECIFIED ATRIAL FIBRILLATION SNOMED Code(s): 540264714747491 Comment: Discussed with Dr. Morris 03/10. Start po digoxin 03/10. Resume xarelto 03/10. Change to verapamil SR 240 mg start 03/10. (2) COPD (chronic obstructive pulmonary disease) Current Visit: Yes Status: Acute Code(s): J44.9 - CHRONIC OBSTRUCTIVE PULMONARY DISEASE, UNSPECIFIED SNOMED Code(s): 10258986 Comment: Stable and without signs of exacerbation. Continue current inhaler regimen. Uses O2 at home 24 hrs. (3) Acute on chronic diastolic heart failure Current Visit: Yes Status: Acute Code(s): I50.33 - ACUTE ON CHRONIC DIASTOLIC (CONGESTIVE) HEART FAILURE SNOMED Code(s): 690262558 Comment: Continue torsemide at home dose. Clinically well compensated. (4) Morbid obesity Current Visit: Yes Status: Acute Code(s): E66.01 - MORBID (SEVERE) OBESITY DUE TO EXCESS CALORIES SNOMED Code(s): 149891760 Comment: BMI 42.0. (5) UTI (urinary tract infection) Current Visit: Yes Status: Acute Comment: Pt with >100,000 colonies of Ecoli. Sens pending. On cephalosporin.
[2018-03-10] MEDS: Verapamil SR TAB* 240 MG PO SCH (09:51)
[2018-03-10] MEDS ORDERED: Rivaroxaban TAB(*) 20 MG TAB PO SCH (10:00)
[2018-03-10] MEDS: Mometasone 220 MCG MDI INH SCH (17:26)
[2018-03-10] MEDS: Digoxin TAB* 0.125 MG PO SCH (17:26)
[2018-03-10] MEDS: Atorvastatin* 80 MG TAB PO SCH (21:23)
[2018-03-10] MEDS: Pregabalin CAP(*) 50 MG PO SCH (21:23)
[2018-03-10] MEDS: traZODone TAB* 50 MG TAB PO SCH (21:23)
--- NOTE | 2018-03-11 01:34 | OP ---
CC: Dr. Berny Sanders, [facility]; Dr. Simons, Hospitalist OPERATIVE REPORT: DATE OF OPERATION: 03/09/18 DATE OF : 50 SURGEON: Misa Morris MD ANESTHESIA: MAC. PRE-OP DIAGNOSIS: Paroxysmal atrial fibrillation with tachybrady. POST-OP DIAGNOSIS: Paroxysmal atrial fibrillation with tachybrady. OPERATIVE PROCEDURE: Dual-chamber pacemaker implantation. ESTIMATED BLOOD LOSS: 15 cc. COMPLICATIONS: None. INDICATIONS: The indications, risks, and benefits were discussed with the patient in the presence of 2 sons and all were amenable to proceeding. The patient had been offered Xarelto for several days. DESCRIPTION OF PROCEDURE: The patient is right-handed and the left subclavian fossa was prepped and draped in the usual sterile fashion. A time-out was called. The patient has mild allergy to IV DYE with itching and she had received oral prednisone prior and re ceived 50 mg of Benadryl IV and following which she received 10 cc of radiopaque dye to the left uppe r extremity outlining the left subclavian and left axillary vein. Following this, lidocaine was infu sed locally in the left subclavian fossa and using a 10 blade knife, a 3-cm incision was made and usi ng Bovie and blunt dissection, was extended to the level of the pectoralis muscle. Additional lidocai ne was infused inferiorly and medially, and using blunt dissection, a small pocket was fashioned. Th roughout the procedure, the patient additionally received a total of 5 mg of Versed and 50 mcg of fen tanyl. Following the incision using fluoroscopic guidance and a modified Seldinger technique, the le ft subclavian vein was cannulated and the guidewire inserted. This procedure was repeated with a sec ond guidewire. Using fluoroscopic guidance, the right ventricular lead was guided into the right ventricular apex. This was difficult there and there was a lot of movement and it took several passes and changing from a soft wire to a medium stiff wire to not only guide the lead into the apex, but enable securing it. Once the lead was secured, pacing and sensing thresholds were checked and found to be good. Using a second guidewire and introducer technique, the right atrial lead was guided into the right atrial a ppendage and actively fixed in place. The patient had converted from AFib to aflutter during the lynn tricular lead placement and flutter waves were confirmed with the atrial lead with a cycle length of 250 milliseconds approximately. The sensing was good and lead impedance was good. Following this, l nora were sutured to the pocket taking care to position carefully. There had been heme at the incisi on site, but not seen in the pocket itself. Hemostasis was obtained. Once those leads were sutured to the pocket, the incision was irrigated copiously. Surgicel was placed in the floor of the pocket because of bleeding at the site and friable fascia. Leads were attached to the device. The device w as placed in the pocket, and the incision was closed using 2 layers of resorbable sutures, 2-0 follow ed by 4-0, followed by pernell and an external dressing. FINDINGS: The system is an MRI compatible [employer] system. The device is a [employer] model W1DR01, serial number [id number], and was programmed in DDD mode but at mode switched. The lower rate was 6 0 beats a minute. The atrial lead was a Med[employer]onic model 5076-52, serial number [id number] and the ventricular lead was a Med[employer] model 5076-58, serial number [id number]. The P waves (flutter waves) were sensed at 3.3 millivolts with an atrial lead impedance of 653 ohms. The ventricular lead sensed R waves of 9.5 millivolts, the ventricular lead impedance of 991 ohms and a ventricular pacing threshold of 0.7 volts at 0.5 milliseconds. The patient was hemodynamically stable throughout the procedure and transferred to the floor. The on ly complication was more bleeding than usual at the venipuncture site and consistent with high venous pressure and this was stable at the end of the procedure. [id number]/[facility] #: [id number]
--- NOTE | 2018-03-11 03:22 | PN ---
Hospitalist Progress Note Date of Service: 03/11/18 RN called to report bright red blood in ostomy. Ms. Ziegler has a history of GI bleeds on AC. Hemodynamically stable. Check stat CBC, hold am xarelto, maintain good IV access.
[2018-03-11 03:43] LABS: Hematocrit 28 % (35-47); Hemoglobin 8.4 g/dl (12.0-16.0); Mean Corpuscular HGB Conc 31 g/dl (31-36); Mean Corpuscular Hemoglobin 23 pg (27-31); Mean Corpuscular Volume 76 fL (80-97); Mean Platelet Volume 8.3 um3 (7.4-10.4); Platelet Count 150 10^3/ul (150-450); Red Blood Count 3.63 10^6/ul (4.00-5.40); Red Cell Distribution Width 19 % (10.5-15); White Blood Count 8.9 10^3/ul (3.5-10.8)
[2018-03-11] MEDS: Levothyroxine TAB* 175 MCG TAB PO SCH (05:43)
[2018-03-11] MEDS: Insulin LISPRO* 1 UNITS UNIT SUBCUT SCH ×4 (08:24→21:02)
[2018-03-11] MEDS ORDERED: Metoprolol Tartrate TAB* 25 MG PO SCH (09:00)
[2018-03-11] MEDS: Aspirin EC TAB* 81 MG TAB.EC PO SCH (09:08)
[2018-03-11] MEDS: Verapamil SR TAB* 240 MG PO SCH (09:08)
[2018-03-11] MEDS: Torsemide TAB* 20 MG PO SCH (09:09)
[2018-03-11] MEDS: Omeprazole CAP* 20 MG PO SCH (09:09)
[2018-03-11] MEDS: Ezetimibe TAB* 10 MG PO SCH (09:09)
[2018-03-11] MEDS: Sertraline* 100 MG TAB PO SCH (09:09)
[2018-03-11] MEDS ORDERED: Metoprolol Tartrate TAB* 25 MG PO ONE (10:56)
--- NOTE | 2018-03-11 11:09 | PN ---
Subjective Date of Service: 03/11/18 Interval History: Mild pain L shoulder. Walks in [place], at baseline resp status. Pt noted some bleeding from stoma, has had worse before. Objective Active Medications: Acetaminophen (Tylenol Tab*) 650 mg PO Q4H PRN PRN Reason: PAIN Hydrocodone Bitart/Acetaminophen ([place] 5-325 Tab*) 1 tab PO Q4H PRN PRN Reason: PAIN Last Admin: 03/10/18 19:37 Dose: 1 tab Albuterol (Ventolin 2.5 Mg/3 Ml Neb.Lorie*) 2.5 mg INH Q4H PRN PRN Reason: SOB/WHEEZING Alprazolam (Xanax Tab*) 0.25 mg PO TID PRN PRN Reason: ANXIETY Last Admin: 03/09/18 20:32 Dose: 0.25 mg Aspirin (Aspirin Ec Tab*) 81 mg PO DAILY [facility] Last Admin: 03/11/18 09:08 Dose: 81 mg Atorvastatin Calcium (Lipitor*) 80 mg PO BEDTIME [facility] Last Admin: 03/10/18 21:23 Dose: 80 mg Benzonatate (Tessalon Cap*) 200 mg PO TID PRN PRN Reason: cough Last Admin: 03/11/18 10:23 Dose: 200 mg Dextrose (D50w Syringe 50 Ml*) 12.5 gm IV PUSH .FOR FS < 60 - SS PRN PRN Reason: FS < 60 Digoxin (Lanoxin Tab*) 0.125 mg PO 1700 [facility] Last Admin: 03/10/18 17:26 Dose: 0.125 mg Ezetimibe (Zetia Tab*) 10 mg PO DAILY [facility] Last Admin: 03/11/18 09:09 Dose: 10 mg Insulin Human Lispro (Humalog*) 0 units SUBCUT ACHS [facility]; Protocol Last Admin: 03/11/18 08:24 Dose: Not Given Levothyroxine Sodium (Synthroid Tab*) 175 mcg PO 0600 [facility] Last Admin: 03/11/18 05:43 Dose: 175 mcg Metoprolol Tartrate (Lopressor Tab*) 50 mg PO BID [facility] Mometasone Furoate (Asmanex 220 Mcg Mdi *) 2 puff INH QPM [facility] Last Admin: 03/10/18 17:26 Dose: 2 puff Omeprazole (Prilosec Cap*) 40 mg PO DAILY@0730 [facility] Last Admin: 03/11/18 09:09 Dose: 40 mg Pregabalin (Lyrica Cap(*)) 50 mg PO BEDTIME [facility] Last Admin: 03/10/18 21:23 Dose: 50 mg Sertraline HCl (Zoloft*) 200 mg PO DAILY [facility] Last Admin: 03/11/18 09:09 Dose: 200 mg Tiotropium [place] (Spiriva Cap.Inh*) 1 cap INH DAILY [facility] Last Admin: 03/10/18 07:44 Dose: 1 cap Torsemide (Demadex*) 40 mg PO DAILY [facility] Last Admin: 03/11/18 09:09 Dose: 40 mg Trazodone HCl (Desyrel Tab*) 100 mg PO BEDTIME [facility] Last Admin: 03/10/18 21:23 Dose: 100 mg Verapamil HCl (Calan Sr Tab*) 240 mg PO DAILY [facility] Last Admin: 03/11/18 09:08 Dose: 240 mg Vital Signs - 8 hr 03/11/18 03/11/18 03/11/18 03:16 07:00 08:00 Temperature 97.5 F Pulse Rate 101 Respiratory 16 22 Rate Blood Pressure 120/83 (mmHg) O2 Sat by Pulse 98 97 Oximetry 03/11/18 03/11/18 08:08 08:10 Temperature 97.7 F Pulse Rate 41 130 Respiratory 20 Rate Blood Pressure 105/77 (mmHg) O2 Sat by Pulse 97 Oximetry Oxygen Devices in Use Now: Nasal Cannula Appearance: Alert, partly up in bed. In good spirits. Looks comfortable. Respiratory: Symmetrical Chest Expansion and Respiratory Effort, Clear to Auscultation, Clear to Percussion Cardiovascular: NL Sounds; No Murmurs; No JVD, No Edema, - - rapid, irreg Extremities: No Edema, No Clubbing, Cyanosis, - Skin: No Rash or Ulcers, No Nodules or Sclerosis, - Neurological: Alert and Oriented x 3, NL Sensation Result Diagrams: 03/11/18 03:23 03/10/18 06:16 Microbiology and Other Data: Microbiology 03/06/18 11:15 Aerobic Blood Culture - Preliminary Blood Line No Growth Day 1 Anaerobic Blood Culture - Preliminary No Growth Day 1 Assess/Plan/Problems-Anthonying Ms Ziegler is a 67 yo F who has a h/o persistent afib, COPD with chronic hypoxic respiratory failure on 2L O2 continuously who presented to the ER with c /o the sudden onset of dyspnea and was found to be in rapid afib. - Patient Problems (1) Atrial fibrillation with RVR Current Visit: Yes Status: Acute Code(s): I48.91 - UNSPECIFIED ATRIAL FIBRILLATION SNOMED Code(s): 843004188274491 Comment: Discussed with Dr. Morris 03/11. Started daily po digoxin 03/10. Resume xarelto 03/12 if H&H OK. Continue verapamil SR 240 mg started 03/10. Increase metoprolol to 50 mg bid 03/11. (2) COPD (chronic obstructive pulmonary disease) Current Visit: Yes Status: Acute Code(s): J44.9 - CHRONIC OBSTRUCTIVE PULMONARY DISEASE, UNSPECIFIED SNOMED Code(s): 12378862 Comment: Stable and without signs of exacerbation. Continue current inhaler regimen. Uses O2 at home 24 hrs. (3) Acute on chronic diastolic heart failure Current Visit: Yes Status: Acute Code(s): I50.33 - ACUTE ON CHRONIC DIASTOLIC (CONGESTIVE) HEART FAILURE SNOMED Code(s): 016785727 Comment: Continue torsemide at home dose. Clinically well compensated. (4) Morbid obesity Current Visit: Yes Status: Acute Code(s): E66.01 - MORBID (SEVERE) OBESITY DUE TO EXCESS CALORIES SNOMED Code(s): 768162552 Comment: BMI 41.9 (5) UTI (urinary tract infection) Current Visit: Yes Status: Acute Comment: Pt with >100,000 colonies of Ecoli. Sens to cefazolin start cephalexin 03/11.
[2018-03-11] MEDS: HYDROcodone/ACETAMIN 5-325 MG* 1 TAB PO PRN ×2 (11:18→21:02)
[2018-03-11] MEDS: Cephalexin CAP* 500 MG PO SCH ×3 (11:18→21:01)
--- NOTE | 2018-03-11 11:50 | PN ---
Subjective Date of Service: 03/11/18 - CC: afib, tachybrady. Interval History: The patient denies SOB. She is aware of heart racing, wonders why (still). Mild tenderness L shoulder, above the incision. Medications Active Medications: Acetaminophen (Tylenol Tab*) 650 mg PO Q4H PRN PRN Reason: PAIN Hydrocodone Bitart/Acetaminophen ([place] 5-325 Tab*) 1 tab PO Q4H PRN PRN Reason: PAIN Last Admin: 03/11/18 11:18 Dose: 1 tab Albuterol (Ventolin 2.5 Mg/3 Ml Neb.Lorie*) 2.5 mg INH Q4H PRN PRN Reason: SOB/WHEEZING Alprazolam (Xanax Tab*) 0.25 mg PO TID PRN PRN Reason: ANXIETY Last Admin: 03/09/18 20:32 Dose: 0.25 mg Aspirin (Aspirin Ec Tab*) 81 mg PO DAILY [facility] Last Admin: 03/11/18 09:08 Dose: 81 mg Atorvastatin Calcium (Lipitor*) 80 mg PO BEDTIME [facility] Last Admin: 03/10/18 21:23 Dose: 80 mg Benzonatate (Tessalon Cap*) 200 mg PO TID PRN PRN Reason: cough Last Admin: 03/11/18 10:23 Dose: 200 mg Cephalexin HCl (Keflex Cap*) 500 mg PO TID [facility] Last Admin: 03/11/18 11:18 Dose: 500 mg Dextrose (D50w Syringe 50 Ml*) 12.5 gm IV PUSH .FOR FS < 60 - SS PRN PRN Reason: FS < 60 Digoxin (Lanoxin Tab*) 0.125 mg PO 1700 [facility] Last Admin: 03/10/18 17:26 Dose: 0.125 mg Ezetimibe (Zetia Tab*) 10 mg PO DAILY [facility] Last Admin: 03/11/18 09:09 Dose: 10 mg Insulin Human Lispro (Humalog*) 0 units SUBCUT ACHS [facility]; Protocol Last Admin: 03/11/18 08:24 Dose: Not Given Levothyroxine Sodium (Synthroid Tab*) 175 mcg PO 0600 [facility] Last Admin: 03/11/18 05:43 Dose: 175 mcg Metoprolol Tartrate (Lopressor Tab*) 50 mg PO BID [facility] Mometasone Furoate (Asmanex 220 Mcg Mdi *) 2 puff INH QPM [facility] Last Admin: 03/10/18 17:26 Dose: 2 puff Omeprazole (Prilosec Cap*) 40 mg PO DAILY@0730 [facility] Last Admin: 03/11/18 09:09 Dose: 40 mg Pregabalin (Lyrica Cap(*)) 50 mg PO BEDTIME [facility] Last Admin: 03/10/18 21:23 Dose: 50 mg Sertraline HCl (Zoloft*) 200 mg PO DAILY [facility] Last Admin: 03/11/18 09:09 Dose: 200 mg Tiotropium [place] (Spiriva Cap.Inh*) 1 cap INH DAILY [facility] Last Admin: 03/10/18 07:44 Dose: 1 cap Torsemide (Demadex*) 40 mg PO DAILY [facility] Last Admin: 03/11/18 09:09 Dose: 40 mg Trazodone HCl (Desyrel Tab*) 100 mg PO BEDTIME [facility] Last Admin: 03/10/18 21:23 Dose: 100 mg Verapamil HCl (Calan Sr Tab*) 240 mg PO DAILY [facility] Last Admin: 03/11/18 09:08 Dose: 240 mg Objective Vital Signs: Temp Pulse Resp BP Pulse Ox 98 F 153 20 100/70 98 03/11/18 10:53 03/11/18 10:53 03/11/18 11:18 03/11/18 10:53 03/11/18 10:53 Oxygen Devices in Use Now: Nasal Cannula Appearance: short, overweight older woman, O2 on, seated on the side of the bed. Eyes: No Scleral Icterus, PERRLA Ears/Nose/Mouth/Throat: Clear Oropharnyx, Mucous Membranes Moist Neck: NL Appearance and Movements; NL JVP, Trachea Midline, No Thyroid Enlargement, Masses - obese. Respiratory: Symmetrical Chest Expansion and Respiratory Effort - thick coarse rhonci, lungs clear after coughing., - - clear but distant bs today. Cardiovascular: NL Sounds; No Murmurs; No JVD - irregualarly irregular. Abdominal: - - obese, soft, non tender. Extremities: No Clubbing, Cyanosis Skin: No Rash or Ulcers, - - incision: no hematoma, infection, nominal ecchymosis inferioriorly, no palpabale abnormalities in the region of discomfort. Neurological: Alert and Oriented x 3 Lines/Tubes/Other Access: Clean, Dry and Intact Peripheral IV Nutrition: Taking PO's Laboratory Results: 03/11/18 03:23 03/10/18 06:16 Total Bilirubin 0.60 mg/dL (0.2-1.0) 03/06/18 10:51 AST 19 U/L (13-39) 03/06/18 10:51 ALT 29 U/L (7-52) 03/06/18 10:51 Alkaline Phosphatase 73 U/L (34-104) 03/06/18 10:51 B-Natriuretic Peptide 911 pg/mL (-100) H 03/06/18 10:51 Total Protein 6.7 g/dL (6.4-8.9) 03/06/18 10:51 Albumin 3.4 g/dL (3.2-5.2) 03/06/18 10:51 Globulin 3.3 g/dL (2-4) 03/06/18 10:51 Albumin/Globulin Ratio 1.0 (1-3) 03/06/18 10:51 TSH 46.99 mcIU/mL (0.34-5.60) H 03/06/18 10:51 03/06/18 10:51 Troponin I 0.01 Diagnostic Imaging: CXR 03/09/18 and 03/10/19: Good lead placement, no pneumothorax. EKG Data: Monitor overnight: afib, sleeping rates 100, awake V rates 130 bpm pacer interrogation shows good sensing and pacing thresholds. Assessment/Plan 67 yo female with Afib, COPD, hx PE and IVC filter admitted with SOB. POD # 2 dual chamber pacemaker. Tachybrady: s/p dual chamber pacer, alternating afib to atrial flutter 2:1 block. Rates still high on Verapaimil and beta bao. I agree as per discussion with increasing metoprolol. Ultimately I think she needs EPS, flutter ablation, CV and antiarrhythmic. If this doesn't work then AVN ablation. Anemia (did have blood loss during procedure due to high venous pressures) could be contributing, consider decrease torsemide short term. Noted she had stomal bleeding. Xarelto as per medicine, but needed for afib. Kefzol in pt, keflex on discharge. Follow up with Dr Morris for wound check next week. Follow up with Dr Dinero 1-4 weeks.
[2018-03-11] MEDS: Tiotropium CAP.INH* CAP.INH/18 MCG (USE ORDER SET !) INH SCH (14:23)
[2018-03-11] MEDS: Digoxin TAB* 0.125 MG PO SCH (17:48)
[2018-03-11] MEDS ORDERED: Ondansetron TAB* 4 MG PO PRN (17:52)
[2018-03-11] MEDS: Mometasone 220 MCG MDI INH SCH (19:29)
[2018-03-11] MEDS: Pregabalin CAP(*) 50 MG PO SCH (21:01)
[2018-03-11] MEDS: Atorvastatin* 80 MG TAB PO SCH (21:02)
[2018-03-11] MEDS: Metoprolol Tartrate TAB* 50 mg PO SCH (21:02)
[2018-03-11] MEDS: traZODone TAB* 50 MG TAB PO SCH (21:02)
[2018-03-12] MEDS: HYDROcodone/ACETAMIN 5-325 MG* 1 TAB PO PRN (03:50)
[2018-03-12] MEDS: Levothyroxine TAB* 175 MCG TAB PO SCH (05:23)
[2018-03-12 06:44] LABS: ABS Basophils 0.1 10^3/ul (0-0.2); ABS Eosinophils 0.2 10^3/ul (0-0.6); ABS Lymphocytes 2.1 10^3/ul (1.0-4.8); ABS Monocytes 0.7 10^3/ul (0-0.8); ABS Neutrophils 5.1 10^3/ul (1.5-7.7); ABS Nucleated RBC 0 10^3/ul; Eosinophil % 2.9 % (0-6); Hematocrit 28 % (35-47); Hemoglobin 8.7 g/dl (12.0-16.0); Lymphocyte % 25.4 % (25-47); Mean Corpuscular HGB Conc 31 g/dl (31-36); Mean Corpuscular Hemoglobin 24 pg (27-31); Mean Corpuscular Volume 77 fL (80-97); Mean Platelet Volume 8.6 um3 (7.4-10.4); Nucleated Red Blood Cells % 0.1; Platelet Count 148 10^3/ul (150-450); Red Blood Count 3.67 10^6/ul (4.00-5.40); Red Cell Distribution Width 20 % (10.5-15); White Blood Count 8.1 10^3/ul (3.5-10.8)
[2018-03-12] MEDS: Omeprazole CAP* 20 MG PO SCH (07:45)
[2018-03-12] MEDS: Insulin LISPRO* 1 UNITS UNIT SUBCUT SCH ×2 (07:56→12:02)
[2018-03-12] MEDS: Ezetimibe TAB* 10 MG PO SCH (09:21)
[2018-03-12] MEDS: Aspirin EC TAB* 81 MG TAB.EC PO SCH (09:21)
[2018-03-12] MEDS: Cephalexin CAP* 500 MG PO SCH ×2 (09:21→13:08)
[2018-03-12] MEDS: Verapamil SR TAB* 240 MG PO SCH (09:22)
[2018-03-12] MEDS: Sertraline* 100 MG TAB PO SCH (09:22)
[2018-03-12] MEDS: Torsemide TAB* 20 MG PO SCH (09:22)
[2018-03-12] MEDS: Metoprolol Tartrate TAB* 50 mg PO SCH (09:22)
--- NOTE | 2018-03-12 10:14 | PN ---
Progress Note - Progress Note Date of Service: 03/12/18 Note: Time spent on discharge 45 minutes, including exam of patient, discussion with patient, nurse, CM, Dr. Morris, review of EMR and preparation of discharge documents.
--- NOTE | 2018-03-12 11:54 | DS ---
CC: Dr. Simons; Dr. Sanders DISCHARGE SUMMARY: DATE OF ADMISSION: 03/06/18 DATE OF DISCHARGE: 03/12/18 HISTORY OF PRESENT ILLNESS: This 67-year-old woman presented with shortness of breath. She had recently been treated for COPD exacerbation and diastolic congestive heart failure and rapid atrial fibrillation. The patient was awoken from sleep at 4 a.m. on the morning of admission with nausea, vomiting, and shortness of breath. The patient was in rapid atrial fibrillation in the past and it has been difficult to control her atrial rate. It was felt that that was her major problem for this admission. The patient is usually followed by Dr. Sanders in [place]. Dr. Chen consulted on the patient. His impression was to install a pacemaker, which would protect her against low heart rates and make it easier to control her rapid atrial fibrillation. Dr. Morris put in a dual-chamber pacemaker on 03/10/18. Following that, the patient was given some intravenous and oral digoxin. Her diltiazem was changed for verapamil for potentially better rate control. Metoprolol which had been held was reinstituted. I am not sure why she was taking the metoprolol tartrate once a day at home, I had switched her to 50 mg twice a day. The combination of that, the verapamil and the digoxin seems to be controlling her heart rate and she was in paced rhythm on the morning of discharge. Her blood pressure tends to run low and this has sometimes held back her medical therapy, I think she tolerates her blood pressure of 92/50 well. She said she was a little dizzy in the morning when she got up. This was before breakfast or her morning medications. After breakfast and the morning medications, she seemed to feel much better and quite able to go home. She will be going home at 3 o'clock this afternoon. She was also treated for urinary tract infection. She had E. Coli sensitive to cefazolin. She got some cefazolin for her pacemaker and will continue on cephalexin for 6 days following discharge. FINAL DIAGNOSES: 1. Atrial fibrillation with rapid ventricular response. 2. Chronic obstructive pulmonary disease. 3. Acute on chronic diastolic heart failure. 4. Morbid obesity. 5. Urinary tract infection. DISCHARGE MEDICATIONS: 1. Cephalexin 500 mg t.i.d. for 6 days. 2. Digoxin 0.125 mg daily at 5 p.m. 3. Metoprolol tartrate 50 mg b.i.d. 4. Torsemide 20 mg once daily. 5. Verapamil SR 240 mg daily. 6. Sertraline 200 mg daily. 7. Atorvastatin 80 mg h.s. 8. Aspirin 81 mg daily. 9. Tiotropium 1 capsule daily. 10. Alprazolam 0.25 mg t.i.d. p.r.n. 11. Trazodone 100 mg h.s. 12. Ezetimibe 10 mg daily. 13. Albuterol inhaler 2 puffs every 4 hours p.r.n. 14. Pregabalin 50 mg h.s. 15. Omeprazole 40 mg daily. 16. Hydrocodone/acetaminophen 5/325 mg 1 every 4 hours p.r.n. 17. Albuterol nebulizer every 4 hours p.r.n. 18. Epinephrine 0.3 mg IM p.r.n. 19. Fluticasone 110 mcg inhaler 2 puffs b.i.d. 20. Levothyroxine 175 mcg daily. 21. Glipizide 2.5 mg daily. 22. Metformin 500 mg b.i.d. 23. Rivaroxaban 20 mg daily. 24. Benzonatate 200 mg t.i.d. p.r.n. DISCHARGE CONDITION: stable DISCHARGE DISPOSITION: home [id number]/[facility] #: [id number] MTDD
[2018-03-12 12:06] VITALS: BP 103/61
[2018-03-12] MEDS ORDERED: Digoxin TAB* 0.125 MG PO SCH (17:00)
[2018-03-13] MEDS ORDERED: Torsemide TAB* 20 MG PO SCH (09:00)
== END 2018-03-12 13:55 | disposition home or self-care (01) | DRG 242 ==
LOC: ED 10:27 → MEDTELE 11:42
PROVIDERS: ADMIT Hospitalist; ATTEND Internal Medicine
PROC: 02H63JZ Insertion of Pacemaker Lead into Right Atrium, Percutaneous Approach (ICD-10-PCS; 2018-03-09)
PROC: 02HK3JZ Insertion of Pacemaker Lead into Right Ventricle, Percutaneous Approach (ICD-10-PCS; 2018-03-09)
PROC: 0JH606Z Insertion of Pacemaker, Dual Chamber into Chest Subcutaneous Tissue and Fascia, Open Approach (ICD-10-PCS; principal; 2018-03-09 08:00)
DX: I49.5 Sick sinus syndrome (principal); I50.33 Acute on chronic diastolic (congestive) heart failure; J96.11 Chronic respiratory failure with hypoxia; J44.1 Chronic obstructive pulmonary disease with (acute) exacerbation; N39.0 Urinary tract infection, site not specified; I82.412 Acute embolism and thrombosis of left femoral vein; I48.92 Unspecified atrial flutter; Z68.41 Body mass index [BMI] 40.0-44.9, adult; I48.1 Persistent atrial fibrillation; K94.01 Colostomy hemorrhage; I48.0 Paroxysmal atrial fibrillation; I25.10 Atherosclerotic heart disease of native coronary artery without angina pectoris; F41.9 Anxiety disorder, unspecified; I11.0 Hypertensive heart disease with heart failure; F32.9 Major depressive disorder, single episode, unspecified; E03.9 Hypothyroidism, unspecified; D64.9 Anemia, unspecified; E78.00 Pure hypercholesterolemia, unspecified; E11.51 Type 2 diabetes mellitus with diabetic peripheral angiopathy without gangrene; K57.90 Diverticulosis of intestine, part unspecified, without perforation or abscess without bleeding; K21.9 Gastro-esophageal reflux disease without esophagitis; M19.012 Primary osteoarthritis, left shoulder; M19.011 Primary osteoarthritis, right shoulder; M17.0 Bilateral primary osteoarthritis of knee; M41.9 Scoliosis, unspecified; K44.9 Diaphragmatic hernia without obstruction or gangrene; Z96.642 Presence of left artificial hip joint; I45.81 Long QT syndrome; G89.4 Chronic pain syndrome; E66.01 Morbid (severe) obesity due to excess calories; B96.20 Unspecified Escherichia coli [E. coli] as the cause of diseases classified elsewhere; I95.9 Hypotension, unspecified; R42 Dizziness and giddiness; I73.9 Peripheral vascular disease, unspecified; Z86.14 Personal history of Methicillin resistant Staphylococcus aureus infection; Z93.3 Colostomy status; Z98.51 Tubal ligation status; Z99.81 Dependence on supplemental oxygen; Z88.8 Allergy status to other drugs, medicaments and biological substances; Z91.030 Bee allergy status; Z91.013 Allergy to seafood; Z82.49 Family history of ischemic heart disease and other diseases of the circulatory system; Z87.891 Personal history of nicotine dependence; Z91.041 Radiographic dye allergy status; Z86.711 Personal history of pulmonary embolism; Z87.01 Personal history of pneumonia (recurrent); Z95.1 Presence of aortocoronary bypass graft; Z87.442 Personal history of urinary calculi; Z90.49 Acquired absence of other specified parts of digestive tract; Z95.2 Presence of prosthetic heart valve; Z79.01 Long term (current) use of anticoagulants; Z79.82 Long term (current) use of aspirin; Z79.84 Long term (current) use of oral hypoglycemic drugs; Z86.718 Personal history of other venous thrombosis and embolism; Z95.828 Presence of other vascular implants and grafts; Z79.51 Long term (current) use of inhaled steroids
CPT/HCPCS: 33208; 36415; 71045; 71046; 80048; 80053; 80162; 81003; 81015; 83605; 83735; 83880; 84443; 84484; 85025; 85027; 86850; 86900; 86901; 87040; 87077; 87086; 87186; 93005; 94640; 99156; 99157; 99284; A9270-GY; C1785; C1898; J0690; J1160; J1200; J2250; J2310; J3010; J7512

== ENCOUNTER 2018-07-30 15:38 | Observation (INO) | payer MEDICARE, MEDICAID ==
--- NOTE | 2018-07-30 16:11 | ED ---
GI/ HPI - HPI Summary HPI Summary: This patient is a 67 year old F brought in by ambulance to ED with a chief complaint of bleeding in the colostomy bag since earlier this morning. Her initial surgery was done in [facility] with Dr. Jackson. The patient is on Xarelto. This is the third time she had to change her colostomy bag. This morning she found blood with small amounts of stool. Her stool is usually soft. Currently the stool in the bag is more liquid than usual. She has had previous episodes of bleeding in the colostomy bag but it was never this much. The patient reports that Dr. Jackson wont do surgery because he thinks she would not be able to make it through a 3.5 hour surgery because of all her side effects. The patient says her cloth doffer is at [place]. Symptoms aggravated by nothing. Symptoms alleviated by nothing. Patient denies CP, SOB, HOWE, dizziness, urinary sx, and any pain. She had a bypass and pacemaker placed in May 2018. She also had L hip replacement. Patient has had a blood transfusion before in [facility]. Current vitals include 72 BPM and 100 O2 sat. PMHx of ventral hernia and afib. FHx of cardiac disease. She is a former smoker, and denies any drug or alcohol use. Atorvastatin* [Lipitor 80 MG*] 80 mg PO BEDTIME 10/25/12 [History Confirmed ] Sertraline* [Zoloft*] 200 mg PO BID 10/25/12 [History Confirmed 03/06/18] Tiotropium CAP.INH* [Spiriva CAP.INH*] 1 cap.inh INH DAILY 05/12/15 [History Confirmed 03/06/18] ALPRAZolam TAB* [Xanax TAB*] 0.25 mg PO TID PRN 06/25/15 [History Confirmed ] Ezetimibe TAB* [Zetia TAB*] 10 mg PO DAILY 08/22/16 [History Confirmed 03/06/18] Albuterol HFA INHALER* [Ventolin HFA Inhaler*] 2 puff INH Q4H PRN 08/03/17 [ History Confirmed 03/06/18] Pregabalin CAP(*) [Lyrica CAP(*)] 50 mg PO BEDTIME #30 cap MDD 50mg 10/22/17 [ Rx Confirmed 03/06/18] Omeprazole CAP (NF) [Prilosec CAP* 20 MG] 40 mg PO DAILY 11/29/17 [History Confirmed 03/06/18] Albuterol 2.5MG/3ML (0.083%)* [Ventolin 2.5 MG/3 ML NEB.ANA*] 2.5 mg INH Q4H PRN 02/21/18 [History Confirmed 03/06/18] EPINEPHrine [Epipen 2-Maico] 0.3 mg IM ONCE PRN 02/21/18 [History Confirmed ] Fluticasone HFA 110 mcg(NF) [Flovent HFA 110 mcg(NF)] 2 puff INH BID 02/21/18 [ History Confirmed 03/06/18] HYDROcodone/ACETAMIN 5-325 MG* [Cardwell 5-325 TAB*] 1 tab PO Q4H PRN 02/21/18 [ History Confirmed 03/06/18] Lactose-Reduced Food [Ensure Liquid] 237 ml PO DAILY 02/21/18 [History Confirmed 03/06/18] Levothyroxine TAB* [Synthroid TAB*] 175 mcg PO 0700 02/21/18 [History Confirmed 03/06/18] glipiZIDE TAB* [Glucotrol TAB*] 2.5 mg PO DAILY 02/21/18 [History Confirmed ] metFORMIN* [Glucophage 500 MG TAB *] 500 mg PO BID 02/21/18 [History Confirmed 03/06/18] Rivaroxaban TAB(*) [Xarelto 20 mg] 20 mg PO DAILY #30 tab 02/25/18 [Rx Confirmed 03/06/18] Digoxin TAB* [Lanoxin TAB*] 0.125 mg PO 1700 #30 tab 03/12/18 [Rx] Metoprolol Tartrate TAB* [Lopressor TAB*] 50 mg PO BID #60 tab 03/12/18 [Rx] Torsemide TAB* [Demadex 20 MG*] 20 mg PO DAILY tab 03/12/18 [Rx] Verapamil SR TAB* [Calan Sr TAB*] 240 mg PO DAILY #30 tab.sr 03/12/18 [Rx] Oxygen DAILY 07/30/18 [History] - History of Current Complaint Stated Complaint: "BLOOD IN COLOSTEMY BAG" PER EMT Hx Obtained From: Patient Onset/Duration: Started Hours Ago - since this morning, Still Present Timing: Constant Location of Pain: None Associated Signs and Symptoms: Positive: Bright Red Blood w/Stool - ostomy bag, Diarrhea - liquidy stool in ostomy bag. Negative: Dizziness, Chest Pain Aggravating Factor(s): Nothing Alleviating Factor(s): Nothing - Additional Pertinent History Primary Care Physician: CARROLL - Allergy/Home Medications Allergies/Adverse Reactions: Allergies Allergy/AdvReac Type Severity Reaction Status Date / Time bee venom protein (honey bee) Allergy Severe Rash Verified 08/03/17 13:55 shellfish derived Allergy Severe Hives Verified 08/03/17 13:55 Iodinated Contrast- Oral and Allergy Intermediate Hives Verified 08/03/17 13:55 IV Dye celecoxib Allergy Hives Verified 08/03/17 13:55 Home Medications: Home Medications Amiodarone HCl 200 mg PO DAILY 07/30/18 [History Confirmed 07/30/18] Hydrocodone/Acetaminophen [Hydrocodone-Acetamin 10-325 mg] 1 tab PO Q6H [History Confirmed 07/30/18] Ramipril CAP* [Altace CAP*] 1 cap PO DAILY 07/30/18 [History Confirmed 07/30/18] Spironolactone 25 mg PO DAILY 07/30/18 [History Confirmed 07/30/18] PMH/Surg Hx/FS Hx/Imm Hx Endocrine/Hematology History: Reports: Hx Anticoagulant Therapy, Hx Diabetes, Hx Thyroid Disease, Hx Anemia Cardiovascular History: Reports: Hx Atrial Fibrillation, Hx Cardiac Arrest, Hx Congestive Heart Failure, Hx Coronary Artery Disease, Hx Deep Vein Thrombosis, Hx Hypercholesterolemia, Hx Hypotension, Hx Hypertension, Hx Pacemaker/ICD - PACEMAKER 03/09/18, Hx Peripheral Vascular Disease, Hx Valvular Heart Disease, Other Cardiovascular Problems/Disorders - CAD, DVT, valve replacement, CABG Respiratory History: Reports: Hx Asthma, Hx Chronic Obstructive Pulmonary Disease (COPD), Hx Pneumonia, Hx Pulmonary Embolism, Hx Sleep Apnea, Other Respiratory Problems/Disorders - home o2, 2.5L GI History: Reports: Hx Diverticulosis, Hx Gall Bladder Disease, Hx Gastroesophageal Reflux Disease, Hx Gastrointestinal Bleed - 08/22/16 admission, Hx Hiatal Hernia - ventral hernia, Other GI Disorders - DIVERTICULITIS, SBO with colostomy History: Reports: Hx Kidney Stones, Hx Renal Disease - KIDNEY STONES Denies: Hx Dialysis, Other Problems/Disorders Musculoskeletal History: Reports: Hx Arthritis - legs and shoulders, Hx Back Problems, Hx Bursitis, Hx Scoliosis, Other Musculoskeletal History - Left hip replacement Denies: Hx Osteoporosis Sensory History: Reports: Hx Contacts or Glasses Denies: Hx Deafness, Hx Hearing Aid Opthamlomology History: Reports: Hx Contacts or Glasses Neurological History: Denies: Hx Dementia, Hx Developmental Delay, Hx Headaches, Hx Migraine, Hx Nerve Disease, Hx Seizures, Hx Spinal Cord Injury, Hx Transient Ischemic Attacks (TIA), Other Neuro Impairments/Disorders Psychiatric History: Reports: Hx Anxiety, Hx Depression Denies: Hx Panic Disorder, Hx Substance Abuse - Surgical History Surgery Procedure, Year, and Place: TUBAL LIGATION 1979, [facility] , CHOLECYSTECTOMY [facility], 2008, KIDNEY STONES REMOVED 1998, [facility], TRIPLE BYPASS, HEART VALVE REPLACEMENT 2010, [facility], LEFT HIP REPLACED, 2009, [facility]. TONSILECTOMY A CHILD. COLOSTOMY 2015 Hx Anesthesia Reactions: No - Immunization History Date of Tetanus Vaccine: Up to date Date of Influenza Vaccine: Fall 2011 Infectious Disease History: Reports: Hx of Known/Suspected MRSA - 08/22/16 [facility] + MRSA nares, Hx Shingles Denies: Hx Hepatitis, Hx Human Immunodeficiency Virus (HIV) - Family History Known Family History: Positive: Cardiac Disease, Other - neg: anesthesia reaction - Social History Alcohol Use: None Hx Substance Use: No Substance Use Type: Reports: None Hx Tobacco Use: Yes Smoking Status (MU): Former Smoker Type: Cigarettes Have You Smoked in the Last Year: No Review of Systems Negative: Chest Pain Negative: Shortness Of Breath Positive: Diarrhea - watery stool in ostomy bag, Other - blood in ostomy bag Genitourinary: Negative Neurological: Other - NEGATIVE: dizziness Negative: Headache All Other Systems Reviewed And Are Negative: Yes Physical Exam - Summary Physical Exam Summary: Appearance: Ill-appearing, no pain distress, well-nourished, patient smells of blood and stool Skin: Warm, color reflects adequate perfusion, dry Head: Normal Head/Face inspection, atraumatic Eyes: Conjunctiva clear ENT: Normal inspection Neck: Supple, no nodes, no JVD Respiratory: Lungs clear, normal breath sounds, no respiratory distress Cardio: RRR, No murmur, pulses normal, brisk capillary refill Abdomen: Soft, nontender, distended ostomy bag in LLQ, ostomy pad is soaked with blood, ostomy bag has 50 cc of dark red blood Bowel sounds: Present Musculoskeletal: Strength Intact/ROM intact, no calf tenderness, no edema. Psychological: Normal Neuro: Alert, muscle tone normal, no focal deficit Triage Information Reviewed: Yes Vital Signs Reviewed: Yes Diagnostics - Laboratory Result Diagrams: 07/30/18 16:42 07/30/18 16:42 Lab Statement: Any lab studies that have been ordered have been reviewed, and results considered in the medical decision making process. - Radiology CXR Radiology Interpretation Completed By: Radiologist Summary of Radiographic Findings: Stigmata of chronic obstructive pulmonary disease. Interval decrease in LEFT pleural effusion versus pleural parenchymal scarring possibly. postsurgical given previous cardiac surgery. Cardiomegaly without evidence for pulmonary edema. ED physician reviewed radiology report. - CT Abdomen/Pelvis CT Interpretation Completed By: Radiologist Summary of CT Findings: No etiology for the noted bleeding at the ostomy evident. Massive small and large bowel containing ventral hernia without change. No inflammatory. ED Provider has reviewed this report. - EKG 15:28 Cardiac Rate: NL - 60 bpm EKG Rhythm: Sinus Rhythm Summary of EKG Findings: An EKG at 15:28 reveals nml AV/IV CT, nml QTc, and nml axis. Re-Evaluation - Re-Evaluation First Eval Re-Evaluation Time: 16:52 Change: Unchanged Comment: Pt needs a commode and will be changed. She notes she feels dizzy when sitting up. Discussed probable transfer with the pt. She states that her daughter will come to the ED. Her BP is 126/76 and her HR is 65. Second Eval Re-Evaluation Time: 17:22 Change: Unchanged Comment: Nurse shared that patient is orthostatic. Patient is now getting her CT. Third Eval Re-Evaluation Time: 18:37 Change: Unchanged Comment: Discussed results, plan for further treatment and admission. GIGU Course/Dx - Course Course Of Treatment: This patient is a 67 year old F brought in by ambulance to ED with a chief complaint of bleeding in the colostomy bag since earlier this morning. Pt medications reviewed this visit. Nurses note reviewed. Allergies noted. In the course, patient was given fluids. Bloodwork and urinalysis revealed RBC at 3.43 L, HGB 8.2 L, Hct 26 L, MCV 75L, MCH 24L, RDW 19H, Absolute Monos 0.9 H, INR 2.15 H, and Sodium [address] A/P revealed no etiology for the noted bleeding at the ostomy evident. Massive small and large bowel containing ventral hernia without change. No inflammatory. A CXR revealed stigmata of chronic obstructive pulmonary disease. Interval decrease in LEFT pleural effusion versus pleural parenchymal scarring possibly postsurgical given previous cardiac surgery. Cardiomegaly without evidence for pulmonary edema. An EKG at 15:28 revealed nml AV/IV CT, nml QTc, and nml axis. Discussed care with Dr. Jackson, Surgery, at 1817 who says she thinks the primary complaint is GI, and to consult with GI and then request a formal consult if GI recommends surgery. Care was discussed with Dr. Neely, hospitalist at 1833 who accepted the patient for admission. This plan was discussed with the patient and she was agreeable with this plan. - Diagnoses Provider Diagnoses: Lower GI bleed, Complication of ostomy - Physician Notifications Discussed Care Of Patient With: Marie Jackson - Surgery Time Discussed With Above Provider: 18:17 - Aware of patient, thinks her primary problem is GI bleeding. Wants GI to manage, and if GI wants formal consult to ask for one. - Critical Care Time Critical Care Time: 30-74 min - CCT is exclusive of separately billable procedures. Discharge - Sign-Out/Discharge Documenting (check all that apply): Patient Departure - Admission Patient Received Moderate/Deep Sedation with Procedure: No - Discharge Plan Disposition: ADMITTED TO [facility] - Attestation Statements Document Initiated by Scribe: Yes Documenting Scribe: Jamel Jackson Provider For Whom Shaylae is Documenting (Include Credential): Liset Dupont MD Scribe Attestation: Jamel Love, scribed for Liset Dupont MD on 07/30/18 at 2150.
[2018-07-30] MEDS ORDERED: NS 0.9% 1000 ML** 1,000 ML IV ONE (16:13)
[2018-07-30 16:50] LABS: ABS Basophils 0.1 10^3/ul (0-0.2); ABS Eosinophils 0.1 10^3/ul (0-0.6); ABS Lymphocytes 1.9 10^3/ul (1.0-4.8); ABS Monocytes 0.9 10^3/ul (0-0.8); ABS Neutrophils 5.1 10^3/ul (1.5-7.7); ABS Nucleated RBC 0 10^3/ul; Eosinophil % 1.8 %; Hematocrit 26 % (35-47); Hemoglobin 8.2 g/dl (12.0-16.0); Lymphocyte % 23.1 %; Mean Corpuscular HGB Conc 32 g/dl (31-36); Mean Corpuscular Hemoglobin 24 pg (27-31); Mean Corpuscular Volume 75 fL (80-97); Mean Platelet Volume 7.6 fL (7.4-10.4); Nucleated Red Blood Cells % 0.1; Platelet Count 261 10^3/ul (150-450); Red Blood Count 3.43 10^6/ul (4.00-5.40); Red Cell Distribution Width 19 % (10.5-15); White Blood Count 8.1 10^3/ul (3.5-10.8)
[2018-07-30 17:05] LABS: Activated Partial Thrombo Time 33.5 seconds (26.0-36.3); INR 2.15 (0.77-1.02)
[2018-07-30 17:07] LABS: ALT 18 U/L (7-52); AST 15 U/L (13-39); Albumin 3.7 g/dL (3.2-5.2); Alkaline Phosphatase 75 U/L (34-104); Amylase 67 U/L (29-103); Anion Gap 8 mmol/L (2-11); BUN/Creatinine Ratio 36.4 (8-20); Blood Urea Nitrogen 60 mg/dL (6-24); C Reactive Protein 1.69 mg/L (<8.01); CO2 Carbon Dioxide 30 mmol/L (22-32); Calcium 8.8 mg/dL (8.6-10.3); Chloride 93 mmol/L (101-111); Creatine Kinase 31 U/L (10-223); EGFR African American 37.5 (>60); Globulin 3.6 g/dL (2-4); Glucose 103 mg/dL (70-100); Potassium 4.5 mmol/L (3.5-5.0); Sodium 131 mmol/L (135-145); Total Protein 7.3 g/dL (6.4-8.9)
[2018-07-30 17:09] LABS: Troponin I 0.01 ng/mL (<0.04)
[2018-07-30 17:20] LABS: Urine Appearance Clear; Urine Bacteria 1+ (Absent); Urine Bilirubin Negative (Negative); Urine Blood 3+ (Negative); Urine Color Straw; Urine Glucose Negative (Negative); Urine Ketones Negative (Negative); Urine Nitrite Negative (Negative); Urine Protein Negative (Negative); Urine Red Blood Cell Trace(0-2/hpf) (Absent); Urine Specific Gravity 1.008 (1.010-1.030); Urine Squamous Epithelial Cell Present (Absent); Urine Urobilinogen Negative (Negative); Urine White Blood Cell Trace(0-5/hpf) (Absent)
[2018-07-30] MEDS ORDERED: Acetaminophen TAB* 325 MG PO PRN (18:58)
[2018-07-30] MEDS ORDERED: Ondansetron INJ* 2 MG/ML VIAL IV PRN (18:58)
[2018-07-30] MEDS ORDERED: Albuterol 2.5 MG/3 ML NEB.SOL* (0.083%) INH PRN (19:13)
[2018-07-30] MEDS ORDERED: Dextrose 50% Syringe 50 ML* 25 GM/50 ML SYRINGE IV PUSH PRN (19:17)
[2018-07-30 19:27] LABS: % Iron Saturation 3 % (15-55); Iron 17 ug/dL (50-212); Total Iron Binding Capacity 574 mcg/dL (250-450); Transferrin 410 mg/dL (203-362)
[2018-07-30 19:47] LABS: Ferritin 16.4 ng/mL (11-307)
[2018-07-30] MEDS: ALPRAZolam TAB* 0.25 MG PO PRN (20:14)
[2018-07-30] MEDS: Hydrocodone/Acetamin 10/325 1 TAB PO SCH (20:14)
[2018-07-30] MEDS: Atorvastatin* 80 MG TAB PO SCH (20:14)
[2018-07-30] MEDS: Pregabalin CAP(*) 50 MG PO SCH (20:15)
[2018-07-30] MEDS: Insulin LISPRO* 1 UNITS UNIT SUBCUT SCH (21:12)
[2018-07-30] MEDS: Fluticasone-Salmeterol 250-50* DISKUS INH SCH (21:17)
--- NOTE | 2018-07-30 22:59 | HP ---
CC: Dr. Simons * ADMISSION HISTORY AND PHYSICAL: DATE OF ADMISSION: 07/30/18 PRIMARY CARE PROVIDER: Dr. Simons. MY ATTENDING PHYSICIAN WHILE IN HOSPITAL: Dr. Sena Neely.* (DICTATED BY MARYCRUZ ROSAS) CHIEF COMPLAINT: GI bleed x1 day. HISTORY OF PRESENT ILLNESS: Ms. Ziegler is a 67-year-old female with past medical history significant for paroxysmal atrial fibrillation, lower extremity DVT on anticoagulation for both, as well as multiple episodes of lower GI bleeding due to confirmed gastric AV malformations as well as heart failure, preserved ejection fraction and diabetes mellitus type 2. The patient was feeling in her normal state of health except for an increase in her colostomy output for approximately 3 days of unknown cause. The patient had no recent changes in her diet, no recent change in her medications. The patient denied fevers, chills, abdominal pain, chest pain, shortness of breath except for occasional shortness of breath with exertion and anxiety, which is her baseline. The patient denies any recent weight loss or weight gain. The patient states that on the morning of 07/30/18, she woke up and there was a large amount of blood in her colostomy and had started to soak out through the seal and into her pants. She then activated EMS and was brought to the emergency department. The patient is still continuing to deny abdominal pain. The patient had no recent changes to medications as above. The patient denied fevers, chills, shortness of breath. The patient was somewhat dizzy when ambulating around the unit and was positive with orthostatic in the emergency department. The patient does not endorse taking any NSAIDs. The patient had a colonoscopy/ileostomy approximately 1 year ago through her colostomy through [place], which showed what she said were a couple of bleeders, which were "fixed " at that time. The patient had a pacemaker put in, in May of this year and was started on amiodarone. The patient in the emergency department was found to be anemic slightly below her baseline with a hemoglobin of 8.2, an elevated INR of 2.15, and a creatinine of 1.65 up from her recent baseline of around 1. The patient had a CT scan of her abdomen which showed no significant changes, but did include a large ventral hernia containing loops of large and small bowel and a colostomy without signs of inflammation or other cause for her GI bleeding. Due to concern for GI bleeding and symptomatology, we were asked to evaluate the patient for admission to the hospital. PAST MEDICAL HISTORY: Paroxysmal atrial fibrillation, bowel obstruction, heart failure, preserved ejection fraction, coronary artery disease, diabetes mellitus type 2, hypertension, depression, chronic pain, May-Thurner syndrome, recurrent lower GI bleeding due to intestinal AVM, chronic pain, history of DVT , remote history of kidney stone, COPD with chronic hypoxic respiratory failure on 2 L oxygen at home. PAST SURGICAL HISTORY: Colonic resection and colostomy, CABG, IVC filter placement, pacemaker. MEDICATIONS: 1. Sertraline 200 mg p.o. daily. 2. Atorvastatin 80 mg p.o. at bedtime. 3. Tiotropium 1 cap inhalation daily. 4. Alprazolam 0.25 mg p.o. t.i.d. as needed. 5. Zetia 10 mg p.o. daily. 6. Albuterol 2 puffs inhalation q.4 hours as needed. 7. Pregabalin 50 mg p.o. at bedtime. 8. Omeprazole 5 mg p.o. daily. 9. Ventolin 2.5 mg inhalation q.4 hours as needed. 10. Epinephrine 0.3 mg IM once as needed. 11. Flovent 2 puffs inhalation b.i.d. 12. Synthroid 175 mcg p.o. daily. 13. Glipizide 2.5 mg p.o. daily. 14. Ensure lactose reduced 237 mL p.o. daily. 15. Metformin 500 mg p.o. b.i.d. 16. Rivaroxaban 20 mg p.o. daily. 17. Torsemide 20 mg p.o. daily. 18. Spironolactone 25 mg p.o. daily. 19. Ramipril 1 cap p.o. daily. 20. [place] 10/325 1 tab p.o. q.6 hours as needed. 21. Amiodarone 200 mg p.o. daily. ALLERGIES: BEE VENOM, SHELLFISH, IODINE, CELEBREX. FAMILY HISTORY: The patient's mother of heart disease. The patient's father in a car accident. The patient has a sister who has breast cancer. A brother of an CO and another brother who was killed in [place]. SOCIAL HISTORY: The patient is a longtime smoker before quitting 4 years ago. The patient denies current alcohol abuse or illicit drug use. The patient is on disability. The patient is , has 5 children, 3 of which are living. The patient's surrogate decision maker might be her daughter, Manuela Carr. REVIEW OF SYSTEMS: A 14-point review of systems were reviewed, is negative except as above in the HPI. PHYSICAL EXAMINATION GENERAL: The patient is a 67-year-old female, who appears stated age and sitting comfortably in bed in no acute distress. VITAL SIGNS: Temperature 97.9, pulse rate 81, respiratory rate 20, oxygen saturation 100% on room air, blood pressure 127/77. HEENT: Head: Normocephalic, atraumatic. Sclerae anicteric. No conjunctival injection. Nasal mucosa moist. Oral mucosa moist. No pharyngeal erythema, discharge, or exudate. NECK: Supple, nontender. No lymphadenopathy. No carotid bruits auscultated. No JVD. RESPIRATORY: Diminished throughout. No adventitious lung sounds. Good air exchange bilaterally. HEART: Grade 3/6 systolic ejection murmur heard best at the right upper sternal border. No adventitious heart sounds. Regular rate and rhythm. Pulses 2+ noted in the dorsalis pedis, posterior tibialis, and radial areas. 1 + bilateral lower extremity edema. ABDOMEN: Obese, large palpable ventral hernia, nontender to palpation, colostomy in place with pink stoma and a small amount of dark blood in the ileostomy bag. No hepatojugular reflux. No hepatosplenomegaly. No abdominal bruits auscultated. Bowel sounds present and normoactive in all 4 quadrants. GENITOURINARY: No suprapubic or CVA tenderness. SKIN: Clean, dry, intact. No rash. NEUROLOGIC: Cranial nerves II through XII intact. No focal deficits. Alert and oriented x3. PSYCHIATRIC: Pleasant and cooperative. DIAGNOSTIC STUDIES/LAB DATA: White blood cell count 8.1, hemoglobin 8.2, hematocrit 26, MCV 75, MCH 24, platelet count 261,000. INR 2.15, aPTT 32.5. Sodium 131, potassium 4.5, chloride 93, carbon dioxide 30, anion gap 8, BUN 60, creatinine 1.65, glucose 103, lactic acid 1.1, calcium 8.8, magnesium 2.0, bilirubin 0.5, AST 15, ALT 20, alkaline phosphatase 75, creatine kinase 31. Troponin I 0.01, CRP 1.69, BNP 232, protein 7.3, albumin 3.7, globulin 3.6, amylase 67, lipase 71. Urine is clear, low specific gravity, 3+ blood, 1+ bacteria, positive squamous epithelial cells. Studies: EKG shows normal sinus rhythm, normal axis, incomplete left bundle- branch block, no ST segment elevation or depression. No T-wave abnormalities. Rate of 60, QTc of 511. Compared to previous exam, normal sinus rhythm has replaced atrial fibrillation. Chest x-ray read as some mild chronic obstructive pulmonary disease, interval decrease in left pleural effusion versus pleural parenchymal scarring, possibly postsurgical previous cardiac history, cardiomegaly without evidence of pulmonary edema. Abdomen pelvis CT read as no bleeding at the colostomy evident, massive small and large bowel containing ventral hernia without change. No inflammatory change or evidence of obstructive hernia. Negative for urolithiasis or hydronephrosis. Left lower lobe volume loss with probable round atelectasis in the posterior basal segment in left lower lobe. Consider reassessment with noncontrast CT in 3 months' time. Very mild aneurysmal dilatation in the infrarenal abdominal aorta without significant change. ASSESSMENT AND PLAN: Impression: Ms. Ziegler is a 67-year-old female with past medical history significant for paroxysmal atrial fibrillation, deep venous thrombosis, recurrent GI bleeds due to arteriovenous malformations, heart failure, with preserved ejection fraction and diabetes, who presents to the emergency department with sudden onset of bright red blood out of her ostomy and symptomatic orthostasis. The patient admitted to the hospital for blood transfusion, monitoring, and gastroenterological consultation with consideration for endoscopy or colonoscopy. 1. Acute lower GI blood. The patient has bright red blood out of her ostomy. No obvious provocation except for acute kidney injury while on Xarelto. The patient's Xarelto will be held. The patient's acute kidney injury is likely due to ostomy output, whether the effect of blood in the GI tract prompted increased ostomy output and caused acute kidney injury in conjunction with worsening anemia or ostomy output caused acute kidney injury causing increase in anticoagulation causing GI bleed is unclear. The patient's Xarelto will be held. The patient has an IVC filter. The patient was anticoagulated for atrial fibrillation, but currently has a pacemaker and is on amiodarone. Given the patient's rhythm control strategy, it may be advisable to withhold anticoagulation given her recurrent GI bleeding unless a better way could be found to ablate her bleeding arteriovenous malformations. The patient will have hemoglobin and hematocrit q.6. The patient will have only 1 unit at this time. Given this is likely a lower GI bleed, the patient will have a clear liquid diet in case there needs to be urgent endoscopy or colonoscopy, but will not start pantoprazole drip. The patient is currently hemodynamically stable. We will repeat H and H 1 hour after blood has completed. 2. Paroxysmal atrial fibrillation. The patient is currently in normal sinus rhythm. The patient had pacemaker and is on amiodarone. The patient's Xarelto will be held as above. The patient is no longer on any rate control agents. 3. Heart failure. Preserved ejection fraction. The patient does not appear to have a congestive heart failure exacerbation at this time. The patient's BNP is slightly elevated, but much lower than her baseline. Will be careful with fluids and transfusions with transfusion-associated circulatory overload. We will hold the patient's torsemide given acute kidney injury. We will resume this when indicated for signs of fluid overload. 4. Diabetes mellitus type 2. The patient will be maintained on sliding scale insulin and fingersticks while in the hospital. Her glipizide and metformin will be held given her currently low GFR. 5. History of deep vein thrombosis. The patient does not appear to have signs of current deep vein thrombosis, though she did have chronic deep vein thrombosis on venous Doppler study in May of this year. The patient has May -Thurner syndrome and is predisposed to deep vein thrombosis, but has an IVC filter in place. 6. Hypertension. The patient is currently normotensive. Hold the patient's ramipril in the setting of acute kidney injury. 7. Chronic obstructive pulmonary disease with current chronic hypoxic respiratory failure. The patient does not have any signs of chronic obstructive pulmonary disease exacerbation at this time. The patient is on a long-acting muscarinic agonist and inhaled corticosteroid at home, but is not on a long-acting beta agonist for unknown reasons. We will start the patient on long-acting beta agonist while in the hospital for long-term control of her chronic obstructive pulmonary disease given frequent exacerbations. 8. DVT prophylaxis. SCDs in the setting of acute GI bleed. 9. FEN. The patient is on clear liquid diet, fluids will be used judiciously. The patient received 1 L while in the emergency department. 10. Disposition. The patient made observation to the medical floor. TIME SPENT: Approximately 60 minutes were spent on the admission of this patient, 30 of which was spent [id number] with the patient obtaining history and physical and discussing treatment plan. This plan was discussed with my attending, Dr. Sena Neely, and she is in agreement. MARYCRUZ ROSAS [id number]/[facility] #: [id number] SERENA
[2018-07-30 23:38] LABS: Hematocrit 28 % (35-47)
[2018-07-31] MEDS: Hydrocodone/Acetamin 10/325 1 TAB PO SCH ×4 (02:08→20:05)
[2018-07-31] MEDS: Levothyroxine TAB* 175 MCG TAB PO SCH (05:32)
[2018-07-31 06:38] LABS: ABS Basophils 0.1 10^3/ul (0-0.2); ABS Eosinophils 0.2 10^3/ul (0-0.6); ABS Lymphocytes 1.8 10^3/ul (1.0-4.8); ABS Monocytes 0.7 10^3/ul (0-0.8); ABS Neutrophils 4.6 10^3/ul (1.5-7.7); ABS Nucleated RBC 0 10^3/ul; Eosinophil % 2.2 %; Hematocrit 27 % (35-47); Hemoglobin 8.7 g/dl (12.0-16.0); Lymphocyte % 24.8 %; Mean Corpuscular HGB Conc 32 g/dl (31-36); Mean Corpuscular Hemoglobin 25 pg (27-31); Mean Corpuscular Volume 77 fL (80-97); Mean Platelet Volume 7.7 fL (7.4-10.4); Nucleated Red Blood Cells % 0; Platelet Count 230 10^3/ul (150-450); Red Blood Count 3.54 10^6/ul (4.00-5.40); Red Cell Distribution Width 19 % (10.5-15); White Blood Count 7.4 10^3/ul (3.5-10.8)
[2018-07-31 07:03] LABS: BUN/Creatinine Ratio 32.6 (8-20); Calcium 8.6 mg/dL (8.6-10.3); EGFR African American 49.9 (>60); EGFR Non-African American 41.2 (>60); Potassium 4.9 mmol/L (3.5-5.0)
[2018-07-31] MEDS: Fluticasone-Salmeterol 250-50* DISKUS INH SCH ×3 (08:19→20:56)
[2018-07-31] MEDS: Tiotropium CAP.INH* CAP.INH/18 MCG (USE ORDER SET !) INH SCH (08:20)
[2018-07-31] MEDS ORDERED: Spiriva Inhaler DEVICE* 1 EACH DEVICE INH ONE (09:00)
[2018-07-31] MEDS ORDERED: Ramipril CAP* 2.5 MG PO SCH (09:00)
[2018-07-31] MEDS ORDERED: glipiZIDE TAB* 5 MG PO SCH (09:00)
[2018-07-31] MEDS: Insulin LISPRO* 1 UNITS UNIT SUBCUT SCH ×4 (10:15→22:53)
[2018-07-31] MEDS: Spironolactone TAB* 25 MG PO SCH (10:17)
[2018-07-31] MEDS: Ezetimibe TAB* 10 MG PO SCH (10:17)
[2018-07-31] MEDS: Amiodarone TAB* 200 MG PO SCH (10:18)
[2018-07-31] MEDS: Sertraline* 100 MG TAB PO SCH (10:18)
[2018-07-31] MEDS: Pantoprazole TAB * 40 MG TAB PO SCH (10:18)
--- NOTE | 2018-07-31 10:55 | PN ---
Subjective Date of Service: 07/31/18 Interval History: Pt c/o chronic leg pain and parastomal hernia area pain Objective Active Medications: Acetaminophen (Tylenol Tab*) 650 mg PO Q6H PRN PRN Reason: FEVER/PAIN Hydrocodone Bitart/Acetaminophen ([place] 10/325 (Nf)) 1 tab PO Q6H [facility] Last Admin: 07/31/18 10:16 Dose: 1 tab Albuterol (Ventolin 2.5 Mg/3 Ml Neb.Lorie*) 2.5 mg INH Q4H PRN PRN Reason: SOB/WHEEZING Alprazolam (Xanax Tab*) 0.25 mg PO TID PRN PRN Reason: ANXIETY Last Admin: 07/30/18 20:14 Dose: 0.25 mg Amiodarone HCl (Cordarone Tab*) 200 mg PO DAILY [facility] Last Admin: 07/31/18 10:18 Dose: 200 mg Atorvastatin Calcium (Lipitor*) 80 mg PO BEDTIME [facility] Last Admin: 07/30/18 20:14 Dose: 80 mg Dextrose (D50w Syringe 50 Ml*) 12.5 gm IV PUSH .FOR FS < 60 - SS PRN PRN Reason: FS < 60 Ezetimibe (Zetia Tab*) 10 mg PO DAILY [facility] Last Admin: 07/31/18 10:17 Dose: 10 mg Insulin Human Lispro (Humalog*) 0 units SUBCUT ACHS [facility]; Protocol Last Admin: 07/31/18 10:15 Dose: Not Given Levothyroxine Sodium (Synthroid Tab*) 175 mcg PO 0600 [facility] Last Admin: 07/31/18 05:32 Dose: 175 mcg Ondansetron HCl (Zofran Inj*) 4 mg IV Q6H PRN PRN Reason: NAUSEA Pantoprazole Sodium (Protonix Tab*) 40 mg PO DAILY [facility] Last Admin: 07/31/18 10:18 Dose: 40 mg Pregabalin (Lyrica Cap(*)) 50 mg PO BEDTIME [facility] Last Admin: 07/30/18 20:15 Dose: 50 mg Fluticasone/Salmeterol (Advair Diskus 250-50*) 2 puff INH BID [facility] Last Admin: 07/31/18 08:19 Dose: 2 puff Sertraline HCl (Zoloft*) 200 mg PO DAILY [facility] Last Admin: 07/31/18 10:18 Dose: 200 mg Spironolactone (Aldactone Tab*) 25 mg PO DAILY [facility] Last Admin: 07/31/18 10:17 Dose: 25 mg Tiotropium [place] (Spiriva Cap.Inh*) 1 cap INH DAILY [facility] Last Admin: 07/31/18 08:20 Dose: 1 cap Vital Signs - 8 hr 07/31/18 07/31/18 07/31/18 04:02 05:03 06:12 Temperature 97.3 F 98.0 F Pulse Rate 60 61 Respiratory 20 16 18 Rate Blood Pressure 123/57 144/49 (mmHg) O2 Sat by Pulse 99 100 Oximetry 07/31/18 07/31/18 07/31/18 08:21 09:14 10:16 Temperature Pulse Rate 60 Respiratory 16 18 Rate Blood Pressure (mmHg) O2 Sat by Pulse 100 98 Oximetry Oxygen Devices in Use Now: Nasal Cannula Appearance: 67 yo F in nAD, aAOx3 Eyes: No Scleral Icterus, PERRLA Ears/Nose/Mouth/Throat: NL Teeth, Lips, Gums, Mucous Membranes Moist Neck: NL Appearance and Movements; NL JVP, Trachea Midline Respiratory: Symmetrical Chest Expansion and Respiratory Effort, Clear to Auscultation Cardiovascular: NL Sounds; No Murmurs; No JVD, RRR Abdominal: NL Sounds; No Tenderness; No Distention, - - with large (size of a soccer ball )parastomal hernia, tender to palpation in left side of hernia, no rebound, no guarding, BS+, colostomy bag with brown stool, no melena, no blood noted Lymphatic: No Cervical Adenopathy Extremities: No Clubbing, Cyanosis, - - trace ankle edema b/l Skin: No Nodules or Sclerosis, - - venous stasis disoloration of distal b/l LE' s Neurological: Alert and Oriented x 3, NL Muscle Strength and Tone Result Diagrams: 07/31/18 06:29 07/31/18 06:28 Assess/Plan/Problems-Billing Assessment: Mrs. Ziegler is a 67yo F with PMH of obesity, Afib, COPD on home O2 2 liters/min, PVF, GERD, diastolic CHF with EF 55%, chronic pain, HTN, DVT, PE (May Thurner syndrome, s/p stenting of femoral vein and IVC filter placement) , RYAN, diabetes, bowel obstruction requiring colostomy, CAD s/p CABG, s/p AVR ( porcine), HLD, hypothyroidism, h/o GI AVM's and GI bleed who presented to ED with diarrhea and dark blood in stoma bag - Patient Problems (1) Lower GI bleed Comment: h/o GI bleed with colonoscopy showing AVMs in 11/2017 Acute bleeding this time likley precipitated by diarrhea, jeri appears to have reolved. D/w GI. will cont monitoring H&H. Bleeding appears to have stopped. will reintroduce diet (2) Atrial fibrillation Comment: today in NSR, cont Amiodarone (3) COPD (chronic obstructive pulmonary disease) Comment: Stable and without signs of exacerbation. Continue current inhaler regimen. Uses O2 at home 24 hrs. (4) Left leg DVT Comment: Pt with LLE DVT, h/o May Thurner syndrome and stentig of left femoral vein in 2018 . She has an IVC filter. (5) DM2 (diabetes mellitus, type 2) Comment: glipizide/metformin held, cont ISS (6) Diastolic CHF Comment: Currently euvolemic. restart toresemide at home dose tomorrow (7) ALEXIS (acute kidney injury) Comment: creat improving (8) DVT prophylaxis Current Visit: No Comment: xarelto held due to GI bleed Status and Disposition: OBV
[2018-07-31 15:40] LABS: Hematocrit 26 % (35-47); Hemoglobin 8.4 g/dl (12.0-16.0)
--- NOTE | 2018-07-31 19:10 | CONS ---
CONSULTATION REPORT: DATE OF CONSULT: 07/31/18 REQUESTING PHYSICIAN: MARYCRUZ Howard NARRATIVE: Ms. Ziegler is a pleasant 67-year-old female with a past medical history for AFib, history of bowel obstruction, numerous GI surgeries, heart failure, coronary artery disease, diabetes type 2, hypertension, depression, chronic pain, May-Thurner syndrome, history of colonic AVMs precipitating GI bleeds, history of DVT in the past, COPD with chronic oxygen use, who states that about 3 days ago she noticed that she had an increased amount of stool into her colostomy and originally it was brown. She has had lower GI bleeding in the past due to suspected AVMs and yesterday she began having a profuse amount of bright red blood. She denies any pain, but she did feel a little dizzy. No fevers, chills, nausea, vomiting. She again denies any pain at all. She came to the emergency room and was admitted for further workup regarding the lower GI bleed. Currently, she states that the color of stool is starting to improve. There is less blood in the stool. She again denies any pain. She denies any NSAID use, but she is on Xarelto. PAST SURGICAL HISTORY: Has a history of pacemaker, IVC filter, CABG, colonic resection, colostomy. MEDICATIONS UPON ADMISSION: Include: 1. Amiodarone. 2. [place]. 3. Ramipril. 4. Spironolactone. 5. Torsemide. 6. Xarelto. 7. Metformin. 8. Glipizide. 9. Synthroid. 10. Flovent. 11. Ventolin. 12. Omeprazole. 13. Zetia. 14. Alprazolam as needed. 15. Atorvastatin. 16. Sertraline. ALLERGIES: To CELEBREX and IODINE. FAMILY HISTORY: Coronary artery disease. SOCIAL HISTORY: She quit smoking approximately 4 to 5 years ago. Rare alcohol. No IV drug use. REVIEW OF SYSTEMS: Twelve systems were reviewed and other than that mentioned in the HPI were unremarkable. PHYSICAL EXAM: Temperature is 98.0, blood pressure is 144/49, pulse is 61, respiratory rate of 18. General: Well-appearing female, in no apparent distress, alert, oriented, pleasant, and fluent. HEENT: Mucous membranes are moist without lesions, ulcers, or exudates. Neck is supple. Trachea is midline. Head is normocephalic, atraumatic. Heart: Irregular rate and rhythm. Lungs: Diffuse breath sounds bilaterally. Scattered expiratory wheeze. Abdomen is obese. Positive bowel sounds. Soft. She does have brown stool in her colostomy bag. Skin is warm and dry. Lower extremity dependent edema. LABORATORY DATA: Labs of note, hemoglobin is 8.4 down from 8.7, down from 9. Her baseline seems to be somewhere around 9 to 9.5. Platelets of 230. INR is 2.15. Chemistry shows a BUN of 42, creatinine of 1.29. ASSESSMENT AND PLAN: Ms. Ziegler is a pleasant 67-year-old female, who has known colonic arteriovenous malformations on a recent endoscopy with Dr. Huerta approximately 7 months ago. Prior to that, she had a colonoscopy in the spring, at which time, the arteriovenous malformations were cauterized by a [place] physician. She is on Xarelto at this point. Likely, she is bleeding, she bled again from the arteriovenous malformations in her colon precipitated by the Xarelto use. She states that her stools are much less bloody than they were before, they are starting to firm up and are more brown in color. Does not appear to be any active gastrointestinal bleeding or any vital sign changes. Thus, at this point, we may not need to pursue another colonoscopy with cauterization. We will see how she does tonight. She is requesting a diet. I will make arrangements for a diet for her and we will monitor her stools and hemoglobin and make decisions determined by those results. We will follow along. [id number]/[facility] #: [id number] SERENA
[2018-07-31] MEDS: Atorvastatin* 80 MG TAB PO SCH (20:05)
[2018-07-31] MEDS: Pregabalin CAP(*) 50 MG PO SCH (20:05)
[2018-07-31] MEDS: ALPRAZolam TAB* 0.25 MG PO PRN (22:47)
[2018-08-01] MEDS: Hydrocodone/Acetamin 10/325 1 TAB PO SCH ×2 (02:14→09:01)
[2018-08-01] MEDS: Levothyroxine TAB* 175 MCG TAB PO SCH (05:39)
[2018-08-01 06:11] LABS: ABS Basophils 0.1 10^3/ul (0-0.2); ABS Eosinophils 0.1 10^3/ul (0-0.6); ABS Lymphocytes 1.3 10^3/ul (1.0-4.8); ABS Monocytes 0.8 10^3/ul (0-0.8); ABS Nucleated RBC 0 10^3/ul; Eosinophil % 1.4 %; Hematocrit 29 % (35-47); Hemoglobin 9.1 g/dl (12.0-16.0); Lymphocyte % 15.8 %; Mean Corpuscular HGB Conc 31 g/dl (31-36); Mean Corpuscular Hemoglobin 24 pg (27-31); Mean Corpuscular Volume 79 fL (80-97); Nucleated Red Blood Cells % 0; Platelet Count 225 10^3/ul (150-450); Red Blood Count 3.74 10^6/ul (4.00-5.40); Red Cell Distribution Width 19 % (10.5-15); White Blood Count 8.3 10^3/ul (3.5-10.8)
[2018-08-01 06:28] LABS: BUN/Creatinine Ratio 28.1 (8-20); Calcium 8.9 mg/dL (8.6-10.3); EGFR African American 57.5 (>60); EGFR Non-African American 47.5 (>60); Potassium 4.5 mmol/L (3.5-5.0)
[2018-08-01] MEDS: Fluticasone-Salmeterol 250-50* DISKUS INH SCH (08:28)
[2018-08-01] MEDS: Tiotropium CAP.INH* CAP.INH/18 MCG (USE ORDER SET !) INH SCH (08:28)
[2018-08-01] MEDS: Spironolactone TAB* 25 MG PO SCH (09:00)
[2018-08-01] MEDS: Sertraline* 100 MG TAB PO SCH (09:00)
[2018-08-01] MEDS: Ezetimibe TAB* 10 MG PO SCH (09:00)
[2018-08-01] MEDS: Pantoprazole TAB * 40 MG TAB PO SCH (09:00)
[2018-08-01] MEDS: Amiodarone TAB* 200 MG PO SCH (09:00)
[2018-08-01] MEDS ORDERED: Torsemide TAB* 20 MG PO SCH (09:00)
[2018-08-01] MEDS: Insulin LISPRO* 1 UNITS UNIT SUBCUT SCH ×2 (09:01→11:54)
[2018-08-01 11:55] VITALS: BP 125/42
--- NOTE | 2018-08-01 12:57 | DS ---
CC: Dr. Simons; Dr. Sanders; Dr. Huerta; Dr. Greco * DISCHARGE SUMMARY: DATE OF ADMISSION: 07/30/18 DATE OF DISCHARGE: 08/01/18 PRIMARY CARE PROVIDER: Dr. Simons. DISCHARGE DIAGNOSIS: Acute lower gastrointestinal bleed in a patient who was on Xarelto. SECONDARY DIAGNOSES: 1. History of gastrointestinal arteriovenous malformations, status post cauterization in the mid of 2017 with repeat colonoscopy later on in the fall, which showed minimal arteriovenous malformations and no source of bleeding. 2. History of paroxysmal atrial fibrillation. 3. History of bowel obstruction. 4. History of congestive heart failure with preserved ejection fraction. 5. Coronary artery disease. 6. Diabetes type 2. 7. Hypertension. 8. Depression. 9. 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 10. History of recurrent gastrointestinal bleeding due to intestinal arteriovenous malformations. 11. Chronic pain. 12. History of deep venous thrombosis. 13. Remote history of kidney stone. 14. History of chronic hypoxic respiratory failure, on oxygen at 2 L at baseline due to chronic obstructive pulmonary disease. 15. Status post coronary artery bypass grafting. 16. Status post pacemaker placement. 17. Status post colostomy with large parastomal hernia, which is chronic. MEDICATIONS AT DISCHARGE: Include: 1. Albuterol nebulizer on a p.r.n. basis. 2. Albuterol inhaler on a p.r.n. basis. 3. Xanax 0.25 mg 3 times a day. 4. Amiodarone 200 mg daily. 5. Lipitor 80 mg daily. 6. Zetia 10 mg daily. 7. Flovent 2 puffs inhalation b.i.d. 8. Glipizide 2.5 mg b.i.d. 9. Synthroid 175 mcg daily. 10. Metformin 500 mg b.i.d. 11. Omeprazole 40 mg daily. 12. Altace 2.5 mg daily. 13. Zoloft 200 mg daily. 14. Aldactone 25 mg daily. 15. Spiriva 1 inhalation daily. 16. Pregabalin 50 mg at bedtime. 17. Torsemide 20 mg daily. The patient was prescribed Percocet 5/325 mg 1 tablet every 4 hours p.r.n. with a total of 5 days' worth of 30 tablets. I-STOP was checked and the patient was prescribed Percocet at 10/325 mg up to 4 times a day in May of 2018 for a 15 days' worth prescription. LABORATORY DATA AND STUDIES PERFORMED DURING THE HOSPITAL STAY: Included on 05/10, white blood cell count of 8.3, hemoglobin of 9.1, hematocrit of 29, MCV of 79, and platelets of 225. Sodium was 130, potassium 4.5, chloride 97, carbon dioxide 28, BUN 32, creatinine 1.14. Microbiology tests showed urine cultures negative for growth and stool for C. diff was negative. Stool for blood was positive. Abdomen and pelvis CT obtained at admission, impression: "No etiology of noted bleeding at the ostomy evident. Massive small and large bowel containing ventral hernia without change. No inflammatory change or evidence of obstruction of the hernia. Negative for urolithiasis or hydronephrosis. Left lower lobe volume loss with probable round atelectasis at the posterior basal segment of the left lower lobe. Consider reassessment with a noncontrast CT in 3 months. 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 The patient stated that she had an episode of diarrhea and nausea. At the end of her 24 hours duration of diarrhea, she noted dark blood in her colostomy bag. She stated that she emptied 3 colostomy bags full of dark blood mixed with stool. She came into the ED for evaluation. Here, she was noted to have the lowest hemoglobin of 8.2. Due to the patient's history, she was transfused right away in the emergency department 1 unit of packed red blood cells. The patient's hemoglobin never dropped below that level and by the time of discharge her hemoglobin was 9.1. Her Xarelto was held. She was seen by Dr. Greco in consultation, who recommended conservative treatment with stopping Xarelto and resuming diet by day first of admission. The patient was resumed on regular diet without any major issues and no recurrence of bleeding. At this point, the recommendation is for the patient to be stay off Xarelto for at least a week and follow up with her primary care provider. The discussion will need to be carried on between the patient and the patient's primary care provider and likely the patient's medical investigator how safe it is for the patient to restart her anticoagulation. Please note that this is a short summary of the patient's hospital stay. Please refer to further medical records for details. TIME SPENT: Approximately 40 minutes was spent on the patient's discharge. [id number]/[facility] #: [id number] MTDD
== END 2018-08-01 13:35 | disposition home or self-care (01) ==
LOC: ED 15:38 → MED 18:58
PROVIDERS: ADMIT Internal Medicine; ATTEND Internal Medicine
DX: K92.2 Gastrointestinal hemorrhage, unspecified (principal); Z87.738 Personal history of other specified (corrected) congenital malformations of digestive system; I48.0 Paroxysmal atrial fibrillation; K56.609 Unspecified intestinal obstruction, unspecified as to partial versus complete obstruction; I50.30 Unspecified diastolic (congestive) heart failure; I25.10 Atherosclerotic heart disease of native coronary artery without angina pectoris; E11.9 Type 2 diabetes mellitus without complications; F32.9 Major depressive disorder, single episode, unspecified; G89.29 Other chronic pain; Z86.718 Personal history of other venous thrombosis and embolism; Z87.442 Personal history of urinary calculi; J96.11 Chronic respiratory failure with hypoxia; Z95.5 Presence of coronary angioplasty implant and graft; Z95.0 Presence of cardiac pacemaker; Z93.3 Colostomy status; Z87.891 Personal history of nicotine dependence; Z79.01 Long term (current) use of anticoagulants; I25.2 Old myocardial infarction; K21.9 Gastro-esophageal reflux disease without esophagitis; R19.7 Diarrhea, unspecified
CPT/HCPCS: 36415; 71045; 74176; 80048; 80053; 81003; 81015; 82150; 82550; 82728; 83540; 83550; 83605; 83690; 83735; 83880; 84484; 85014; 85018; 85025; 85610; 85730; 86140; 86850; 86900; 86901; 86922; 87086; 87493; 93005; 94640; 96361; 96374; 99285; A9270-GY; G0378; P9040

== ENCOUNTER 2018-08-23 16:12 | Inpatient (IN) | payer MEDICARE, MEDICAID ==
--- NOTE | 2018-08-23 16:29 | ED ---
Dizziness - HPI Summary HPI Summary: Pt is a 67 y/o F presenting to the ED brought in by EMS for dizziness. The pt states she went to the doctor this morning with her daughter, and on the way she felt her vision was off and dizziness. She does not remember talking to her doctor, but she remembers waking up and her doctor being there. She presently denies chest pain, sob, or recent illness. She reports dizziness and room spinning. - History Of Current Complaint Stated Complaint: HIGH BP PER EMS Time Seen by Provider: 08/23/18 16:16 Hx Obtained From: Patient Onset/Duration: Gradually Timing: Constant Severity Initially: Moderate Severity Currently: Moderate Character: Room Spinning, Dizzy Aggravating Factor(s): Exertion Alleviating Factor(s): Nothing Associated Signs And Symptoms: Negative: Chest Pain, SOB - Allergies/Home Medications Allergies/Adverse Reactions: Allergies Allergy/AdvReac Type Severity Reaction Status Date / Time bee venom protein (honey bee) Allergy Severe Rash Verified 08/23/18 18:21 shellfish derived Allergy Severe Hives Verified 08/23/18 18:21 Iodinated Contrast- Oral and Allergy Intermediate Hives Verified 08/23/18 18:21 IV Dye celecoxib Allergy Hives Verified 08/23/18 18:21 Home Medications: Home Medications Amiodarone TAB* [Cordarone TAB*] 200 mg PO DAILY 08/23/18 [History Confirmed 08/08] Hydrocodone/Acetamin 10/325(NF [[place] 10/325 (NF)] 1 tab PO Q6H PRN 08/23/18 [ History Confirmed 08/23/18] Rivaroxaban TAB(*) [Xarelto 20 mg] 20 mg PO DAILY 08/23/18 [History Confirmed ] PMH/Surg Hx/FS Hx/Imm Hx Previously Healthy: No Endocrine/Hematology History: Reports: Hx Anticoagulant Therapy - Xarelto, Hx Diabetes, Hx Thyroid Disease, Hx Anemia, Other Endocrine/Hematological Disorders - 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, causing DVTs) Cardiovascular History: Reports: Hx Atrial Fibrillation, Hx Cardiac Arrest, Hx Congestive Heart Failure, Hx Coronary Artery Disease, Hx Deep Vein Thrombosis, Hx Hypercholesterolemia, Hx Hypotension, Hx Hypertension, Hx Pacemaker/ICD - PACEMAKER 03/09/18, Hx Peripheral Vascular Disease, Hx Valvular Heart Disease, Other Cardiovascular Problems/Disorders - valve replacement, CABG Respiratory History: Reports: Hx Asthma, Hx Chronic Obstructive Pulmonary Disease (COPD), Hx Pneumonia, Hx Pulmonary Embolism, Hx Sleep Apnea, Other Respiratory Problems/Disorders - home o2, 2.5L GI History: Reports: Hx Diverticulosis, Hx Gall Bladder Disease, Hx Gastroesophageal Reflux Disease, Hx Gastrointestinal Bleed - 08/22/16 admission, Hx Hiatal Hernia - ventral hernia, Other GI Disorders - DIVERTICULITIS, SBO with colostomy, bowel AVM's History: Reports: Hx Kidney Stones, Hx Renal Disease - KIDNEY STONES Denies: Hx Dialysis, Other Problems/Disorders Musculoskeletal History: Reports: Hx Arthritis - legs and shoulders, Hx Back Problems, Hx Bursitis, Hx Scoliosis, Other Musculoskeletal History - Left hip replacement Denies: Hx Osteoporosis Sensory History: Reports: Hx Contacts or Glasses Denies: Hx Deafness, Hx Hearing Aid Opthamlomology History: Reports: Hx Contacts or Glasses Neurological History: Denies: Hx Dementia, Hx Developmental Delay, Hx Headaches, Hx Migraine, Hx Nerve Disease, Hx Seizures, Hx Spinal Cord Injury, Hx Transient Ischemic Attacks (TIA), Other Neuro Impairments/Disorders Psychiatric History: Reports: Hx Anxiety, Hx Depression Denies: Hx Panic Disorder, Hx Substance Abuse - Cancer History Cancer Type, Location and Year: none - Surgical History Surgery Procedure, Year, and Place: TUBAL LIGATION 1979, [facility] [place] , CHOLECYSTECTOMY [facility] [place], 2008, KIDNEY STONES REMOVED 1998, [facility] [place], TRIPLE BYPASS, HEART VALVE REPLACEMENT 2010, [facility], LEFT HIP REPLACED, 2009, [facility]. TONSILECTOMY A CHILD. COLOSTOMY 2015, IVC filter. pacemaker 2018 Hx Anesthesia Reactions: No - Immunization History Date of Tetanus Vaccine: Up to date Date of Influenza Vaccine: Fall 2011 Infectious Disease History: No Infectious Disease History: Reports: Hx of Known/Suspected MRSA - 08/22/16 [facility] + MRSA nares, Hx Shingles Denies: Hx Hepatitis, Hx Human Immunodeficiency Virus (HIV), Traveled Outside the [place] in Last 30 Days - Family History Known Family History: Positive: Cardiac Disease, Other - neg: anesthesia reaction - Social History Alcohol Use: None Hx Substance Use: No Substance Use Type: Reports: None Hx Tobacco Use: Yes Smoking Status (MU): Former Smoker Type: Cigarettes Have You Smoked in the Last Year: No Review of Systems Negative: Chest Pain Negative: Shortness Of Breath Neurological: Other - dizziness, room spinning All Other Systems Reviewed And Are Negative: Yes Physical Exam - Summary Physical Exam Summary: VITAL SIGNS: Reviewed. GENERAL: Patient is a well-developed and nourished female who is lying comfortable in the stretcher. Patient is not in any acute respiratory distress. HEAD AND FACE: No signs of trauma. No ecchymosis, hematomas or skull depressions. No sinus tenderness. EYES: PERRLA, EOMI x 2, No injected conjunctiva, no nystagmus. EARS: Hearing grossly intact. Ear canals and tympanic membranes are within normal limits. MOUTH: Oropharynx within normal limits. NECK: Supple, trachea is midline, no adenopathy, no JVD, no carotid bruit, no c- spine tenderness, neck with full ROM. CHEST: Symmetric, no tenderness at palpation LUNGS: Clear to auscultation bilaterally. No wheezing or crackles. CVS: Regular rate and rhythm, S1 and S2 present, no murmurs or gallops appreciated. ABDOMEN: Soft, non-tender. No signs of distention. No rebound no guarding, and no masses palpated. Bowel sounds are normal. EXTREMITIES: FROM in all major joints, no edema, or clubbing. 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 NEURO: Alert and oriented x 3. No acute neurological deficits. Speech is normal and follows commands. SKIN: Dry and warm PSYCH: Anxious GCS: 15 Triage Information Reviewed: Yes Vital Signs On Initial Exam: Initial Vitals Temp Pulse Resp BP Pulse Ox 98.2 F 76 11 94/43 100 08/23/18 16:20 08/23/18 16:20 08/23/18 16:20 08/23/18 16:20 08/23/18 16:20 Vital Signs Reviewed: Yes Diagnostics - Vital Signs Vital Signs Temp Pulse Resp BP Pulse Ox 08/23/18 16:20 98.2 F 76 11 94/43 100 - Laboratory Result Diagrams: 08/24/18 08:07 08/24/18 05:36 Lab Statement: Any lab studies that have been ordered have been reviewed, and results considered in the medical decision making process. - Radiology CXR Radiology Interpretation Completed By: Radiologist Summary of Radiographic Findings: 1. Stigmata of obstructive lung disease. 2. Small LEFT dependent pleural effusion versus pleural thickening with interval decrease. 3. Negative for pulmonary edema. ED physician has reviewed this report. - CT Brain CT CT Interpretation Completed By: Radiologist Summary of CT Findings: 1. NO EVIDENCE FOR ACUTE INTRACRANIAL ABNORMALITY. 2. OLD LACUNAR INFARCT IN THE LEFT FRONTAL LOBE. ED physician has reviewed this report. - EKG 1746 Cardiac Rate: NL - 64bpm EKG Rhythm: Sinus Rhythm ST Segment: Normal Ectopy: None EKG Comparison: No Significant Change - from 07/30/18 Dizzy Course/Dx - Course Assessment/Plan: Patient is a 67-year-old female who presents to the emergency department with a chief complaint of a syncopal episode. The patient is a harder stick to get blood work therefore, multiple nurses attempts for blood work and finally after 2 hours we obtained blood work. Meantime the patient continues to be hemodynamically stable alert and oriented 3. Chest X-ray impression: stigmata of obstructive lung disease. The small left dependent pleural effusion versus pleural thickening with interval disease. Negative for pulmonary edema. Head CT impression: no evidence for acute intracranial abnormality.Old Lacunar infarct in the left frontal lobe. Patient is awaiting for the blood test results. At this point the patient will be signed out to Dr. Burns to follow up the blood test results and admit the patient to the hospital services. - Diagnoses Provider Diagnoses: Syncope, Acute renal failure Discharge - Sign-Out/Discharge Documenting (check all that apply): Sign-Out Patient Signing out patient TO: Sarika Burns - Discharge Plan Condition: Stable Disposition: ADMITTED TO [facility] - Billing Disposition and Condition Condition: STABLE - Attestation Statements Document Initiated by Meaghanibe: Yes Documenting Scribe: Kezia Bowden Provider For Whom Sary is Documenting (Include Credential): Jace Echols MD. Scribe Attestation: Kezia Love, scribed for Jace Echols MD. on 08/24/18 at 1816. Scribe Documentation Reviewed: Yes Provider Attestation: The documentation as recorded by the Kezia nowak accurately reflects the service I personally performed and the decisions made by me, Jace Echols MD. Status of Scribe Document: Viewed
[2018-08-23 18:58] LABS: INR 0.94 (0.77-1.02)
[2018-08-23 19:05] LABS: ALT 36 U/L (7-52); AST 29 U/L (13-39); Alkaline Phosphatase 82 U/L (34-104); Anion Gap 14 mmol/L (2-11); BUN/Creatinine Ratio 27.5 (8-20); Blood Urea Nitrogen 89 mg/dL (6-24); CO2 Carbon Dioxide 24 mmol/L (22-32); Calcium 9.7 mg/dL (8.6-10.3); Chloride 91 mmol/L (101-111); EGFR African American 17.2 (>60); EGFR Non-African American 14.2 (>60); Globulin 4.1 g/dL (2-4); Glucose 110 mg/dL (70-100); Potassium 4.3 mmol/L (3.5-5.0); Sodium 129 mmol/L (135-145); Total Protein 8.1 g/dL (6.4-8.9)
[2018-08-23 19:07] LABS: Hematocrit 33 % (33-41); Hemoglobin 10.6 g/dL (12.0-16.0); Mean Corpuscular HGB Conc 32 g/dL (31-36); Mean Corpuscular Hemoglobin 24 pg (27-31); Mean Corpuscular Volume 75 fL (80-97); Red Blood Count 4.43 10^6 /uL (3.70-4.87); Red Cell Distribution Width 21 % (10.5-15); Troponin I 0.03 ng/mL (<0.04); White Blood Count 13.1 10^3/uL (3.5-10.8)
[2018-08-23 19:26] LABS: Mean Platelet Volume 8.7 fL (7.4-10.4); Platelet Count 268 10^3/uL (150-450); TSH (Thyroid Stimulating Horm) 0.63 mcIU/mL (0.34-5.60)
[2018-08-23 19:27] LABS: ABS Basophils 0.1 10^3/ul (0-0.2); ABS Eosinophils 0 10^3/ul (0-0.6); ABS Monocytes 0.9 10^3/ul (0-0.8); ABS Neutrophils 11.1 10^3/ul (1.5-7.7); ABS Nucleated RBC 0 10^3/ul; Eosinophil % 0.1 %; Lymphocyte % 7.3 %; Nucleated Red Blood Cells % 0.1
--- NOTE | 2018-08-23 19:30 | ED ---
Progress - Progress Note Progress Note: This patient was signed out from Dr. Echols to Dr. Burns upon shift change, pending labs and L ankle XR. Upon re-eval at 1936: The patient went to her PCP for a routine visit and for injury to her L ankle yesterday. At the office, she was found to have low BP. The patient denies urinary sx, but daughter reports she hasn't urinated today since arriving to the ED. Patient denies any hx of kidney issues. L ankle XR, per Dr. Burns, reveals no fracture. Pending radiologist official report. VITAL SIGNS: Reviewed. GENERAL: Patient is a well-developed and nourished FEMALE who is lying comfortable in the stretcher. Patient is not in any acute respiratory distress. HEAD AND FACE: No signs of trauma. No ecchymosis, hematomas or skull depressions. No sinus tenderness. EYES: PERRLA, EOMI x 2, No injected conjunctiva, no nystagmus. EARS: Hearing grossly intact. Ear canals and tympanic membranes are within normal limits. MOUTH: Oropharynx within normal limits. NECK: Supple, trachea is midline, no adenopathy, no JVD, no carotid bruit, no c- spine tenderness, neck with full ROM. CHEST: Symmetric, no tenderness at palpation LUNGS: Clear to auscultation bilaterally. No wheezing or crackles. CVS: Regular rate and rhythm, S1 and S2 present, no murmurs or gallops appreciated. ABDOMEN: Soft, non-tender. Abdomen is distended. No rebound no guarding, and no masses palpated. Bowel sounds are normal. Patient has a colostomy bag full of air. EXTREMITIES: FROM in all major joints and no cyanosis or clubbing. Patient has bilateral LE edema with venous stasis. NEURO: Alert and oriented x 3. No acute neurological deficits. Speech is normal and follows commands. SKIN: Dry and warm Re-Evaluation - Re-Evaluation First Eval Re-Evaluation Time: 19:36 Comment: Patient is not feeling too good. Course/Dx - Course Course Of Treatment: This patient was signed out from Dr. Echols to Dr. Burns upon shift change, pending labs and L ankle XR. L ankle XR, per Dr. Burns, reveals no fracture. Consulted Dr. Ruiz at 1948 about the patient's case and she accepts the patient for admission. The patient will be admitted with dx of syncope and acute renal failure. Patient understands and agrees with this plan. - Diagnoses Provider Diagnoses: Syncope, Acute renal failure - Provider Notifications Discussed Care Of Patient With: Kezia Ruiz Time Discussed With Above Provider: 19:48 Instructed by Provider To: Admit As Inpatient Discharge - Sign-Out/Discharge Documenting (check all that apply): Patient Departure - admit Patient Received Moderate/Deep Sedation with Procedure: No - Discharge Plan Condition: Stable Disposition: ADMITTED TO [facility] Referrals: Kajal Simons MD [Primary Care Provider] - - Attestation Statements Document Initiated by Scribe: Yes Documenting Scribe: Jamel Jackson Provider For Whom Scribe is Documenting (Include Credential): Sarika Burns MD Scribe Attestation: Jamel Love, scribed for Sarika Burns MD on 08/23/18 at 1948. Status of Scribe Document: Ready
[2018-08-23 19:38] LABS: Microcytosis 1+
[2018-08-23] MEDS ORDERED: NS 0.9% 1000 ML** 1,000 ML IV ONE (19:40)
[2018-08-23 20:01] LABS: Phosphorus 6.2 mg/dL (2.5-5.0)
[2018-08-23 20:33] LABS: Urine Appearance Cloudy; Urine Bilirubin Negative (Negative); Urine Blood Negative (Negative); Urine Color Yellow; Urine Glucose Negative (Negative); Urine Ketones Negative (Negative); Urine Nitrite Negative (Negative); Urine Protein Negative (Negative); Urine Urobilinogen Negative (Negative)
[2018-08-23] MEDS ORDERED: Al Hydrox/Mg Hydrox/Simet LIQ* 30 ML UDC PO PRN (20:38)
[2018-08-23] MEDS ORDERED: Acetaminophen TAB* 325 MG PO PRN (20:38)
[2018-08-23] MEDS ORDERED: Lactated Ringers 1000 ML Bag* 1,000 ML IV ONE (20:40)
[2018-08-23] MEDS ORDERED: Albuterol 2.5 MG/3 ML NEB.SOL* (0.083%) INH PRN (20:40)
[2018-08-23] MEDS ORDERED: Albuterol HFA INHALER* 8 gm MDI INH PRN (20:40)
[2018-08-23] MEDS ORDERED: Dextrose 50% Syringe 50 ML* 25 GM/50 ML SYRINGE IV PUSH PRN (20:49)
[2018-08-23 20:52] LABS: % Iron Saturation 9 % (15-55); Iron 53 ug/dL (50-212); Total Iron Binding Capacity 585 mcg/dL (250-450); Transferrin 418 mg/dL (203-362)
[2018-08-23 21:12] LABS: Ferritin 25.8 ng/mL (11-307)
[2018-08-23] MEDS: Hydrocodone/Acetamin 10/325 1 TAB PO PRN (23:12)
[2018-08-23] MEDS: Pregabalin CAP(*) 50 MG PO SCH (23:12)
[2018-08-23] MEDS: Atorvastatin* 80 MG TAB PO SCH (23:12)
[2018-08-23] MEDS: Heparin VIAL(*) 5000 UNITS/ML VIAL (FIVE THOUSAND) SUBCUT SCH (23:13)
--- NOTE | 2018-08-23 23:55 | HP ---
CC: Dr. Kajal Simons * HISTORY AND PHYSICAL: DATE OF ADMISSION: 08/23/18 TIME OF EVALUATION: 1999 PRIMARY CARE PHYSICIAN: Dr. Kajal Simons. CHIEF COMPLAINT: Syncopal episode. HISTORY OF PRESENT ILLNESS: This is a 67-year-old female with a recent admission and diagnosis for a GI bleed, paroxysmal A-fib, and diabetes who presented to the emergency room from her primary care office after having a syncopal episode. The patient was discharged on 08/01/18 secondary to a GI bleed, was on Xarelto at that time. Her Xarelto has since been discontinued. She is scheduled to see a vascular surgeon next week to discuss when should she return on her anticoagulation. She went to see her primary post discharge followup on 08/19/18. Her primary increased her torsemide to 40 every other day and 60 every other day. She has been doing well relatively okay. She got up and twisted her left ankle this morning. She went to see her primary for her usual followup and to have a check on her ankle. She called her daughter at 1:30 this afternoon saying she was not feeling well, blurry vision, dizzy, lightheaded, and nauseated. Her daughter was planning to take her to appointment at 3 o'clock. At her appointment, that is when she had a syncopal episode. The patient states her vision is improved. She is no longer nauseated. She states she started with increase in liquid stool output today with some abdominal discomfort. No vomiting, no fever. She has had some chills today. She has had some chest pressure. She is not short of breath. No URI symptoms. No fevers. She has noticed that her urine output is decreased. No burning when she pees. No pain with urination. She denies any NSAID use as well. In the emergency room, the patient had labs and imaging. She was given 1 L of fluid and referred to the hospitalist service for further evaluation. PAST MEDICAL HISTORY: 1. 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 2. History of paroxysmal atrial fibrillation. 3. History of bowel obstruction, status post ostomy. 4. History of diastolic heart failure with preserved ejection fraction. 5. Coronary artery disease. 6. Diabetes. 7. Hypertension. 8. Depression. 9. 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 10. History of chronic pain. 11. History of DVT. 12. History of nephrolithiasis. 13. History of chronic hypoxic respiratory failure, on 2 L at baseline. 14. COPD, on 2 L. 15. History of coronary artery bypass graft. 16. History of pacemaker placement. 17. History of colostomy with large parastomal hernia. MEDICATIONS: 1. Torsemide 40 mg every other day and 60 mg every other day. 2. Albuterol nebulizer as needed. 3. Albuterol inhaler as needed. 4. Xanax 0.25 mg t.i.d. as needed. 5. Amiodarone 200 mg p.o. daily. 6. Lipitor 80 mg daily. 7. Zetia 10 mg daily. 8. Flovent 2 puffs inhale b.i.d. 9. Glipizide 2.5 mg p.o. b.i.d. 10. Synthroid 175 mcg daily. 11. Metformin 500 mg p.o. b.i.d. 12. Omeprazole 40 mg daily. 13. Altace 2.5 mg daily. 14. Zoloft 200 mg daily. 15. Aldactone 25 mg daily. 16. Spiriva inhale daily. 17. Pregabalin 50 mg at bedtime. ALLERGIES: BEE VENOM, SHELLFISH, IODINE, IV CONTRAST and CELECOXIB. FAMILY HISTORY: Mother in her 70s from coronary artery disease. Father from an MVA. Brother from an [place] in his 30s and her son in his 50s from an [place] as well. SOCIAL HISTORY: The patient lives at home alone. She is independent of her ADL. She is on disability. She is . She has 5 children. Her daughter , Manuela Carr, is her healthcare proxy, is a full code. She quit smoking 4 years ago. No alcohol or illicit drug use. REVIEW OF SYSTEMS: A 14-point review of systems as mentioned in the HPI; otherwise, negative. Also note, the patient denies any recent weight loss over the past month. PHYSICAL EXAMINATION GENERAL: Frail, elderly female in no acute distress. VITAL SIGNS: Temp 97.8, pulse rate 72, respiratory rate 22, oxygen saturation is 94% on 2 L, blood pressure 113/48. HEENT: Head normocephalic. Pupils are equal and reactive. Anicteric. Oropharynx: Mucous membranes are dry. NECK: Supple. No lymphadenopathy. RESPIRATORY: Diminished breath sounds. No wheezes, rhonchi, or rales. CARDIAC: Regular rate and rhythm. Harsh systolic murmur heard throughout. ABDOMEN: Hypoactive bowel sounds, soft, mild distention, diffuse tenderness. Her ostomy has dark liquid stool output. EXTREMITIES: Chronic hemosiderin changes with trace pedal edema. NEUROLOGIC: Alert and oriented x3. No gross focal neurologic deficits. DIAGNOSTIC STUDIES/LAB DATA: White count 13.1, hemoglobin 10.6, hematocrit 33, platelets 268. INR is 0.94. Sodium 129, potassium 4.3, chloride 91, bicarb 24, BUN 89, creatinine 3.24, glucose 110. Serum osmolality 320. BNP 127. TSH 0.63. EKG shows normal sinus rhythm with no significant ST changes. QTc is 597. Ankle x-ray: No overt ankle injury. Head CT: No evidence for acute intracranial abnormality or lacunar infarct in the left frontal lobe. Chest x-ray: Stigmata of COPD. Small left dependent pleural effusion versus pleural thickening with interval decrease. Negative for pulmonary edema. ASSESSMENT: This is a 67-year-old female with multiple comorbidities including diastolic heart failure, coronary artery disease, and diabetes who presents to the emergency room after having a syncopal episode at her primary care physician 's office, found to have acute kidney injury. 1. Syncope. Assessment: I suspect the patient's syncope is related to dehydration, hypovolemia in the setting of her worsening renal failure and soft blood pressures on arrival to the emergency room. The patient was getting high doses of torsemide. She was also on spironolactone. She is also on MADELAINE inhibitor, contributing to her worsening renal failure. Another component to her dehydration is increase in liquid stool output with some diffuse abdominal pain. I do not think this is cardiac related, though she is having some chest pressure. Plan: We will admit her to [address] [place] [address], we will trend her troponin. I am going to get an abdominal and pelvis CAT scan to rule out any pathology without contrast, do a stool culture. I am going to continue with gentle IV fluids of 100 cc of LR overnight. We will hold her torsemide, her ramipril, her spironolactone, her glipizide and repeat her labs in the morning. We will also follow up on her renal ultrasound that was obtained in the emergency room. The patient did have a recent GI bleed. Her stools are dark but she states she is on iron and her H and H is stable. We will check iron studies and continue her on iron supplements. The patient had an echocardiogram a year ago. I think it is worthwhile to repeat an echo while she is here since it has been a year. 2. Chronic medical problems. Diabetes: Hold her oral agents, placed her on a Lispro sliding scale. 3. Chronic obstructive pulmonary disease. Continue her inhaler regimen and chronic 2 L of oxygen. 4. Paroxysmal atrial fibrillation. The patient remains in sinus. Continue her amiodarone. 5. Hypothyroidism. Continue her Synthroid. 6. Gastroesophageal reflux disease. Continue omeprazole. 7. FEN. We will place the patient on a clear diet in the setting of abdominal pain and liquidy stool. Advance as tolerated and follow up on a CAT scan. 8. DVT prophylaxis. The patient scores high risk. We will place her on heparin subcu t.i.d. 9. Code status. Full code. PATIENT TIME: Greater than 50 minutes was spent doing the history and physical , more than half the time was spent in direct patient contact. [id number]/CPS #: [id number] SERENA
[2018-08-24] MEDS: Mometasone 220 MCG MDI INH SCH ×2 (00:42→19:55)
[2018-08-24] MEDS: ALPRAZolam TAB* 0.25 MG PO PRN ×3 (00:46→21:45)
[2018-08-24] MEDS: Heparin VIAL(*) 5000 UNITS/ML VIAL (FIVE THOUSAND) SUBCUT SCH ×3 (05:00→21:46)
[2018-08-24] MEDS: Levothyroxine TAB* 175 MCG TAB PO SCH (05:01)
[2018-08-24 06:01] LABS: Calcium 8.9 mg/dL (8.6-10.3); Potassium 3.5 mmol/L (3.5-5.0)
[2018-08-24 06:06] LABS: BUN/Creatinine Ratio 33.1 (8-20); EGFR African American 21.4 (>60); EGFR Non-African American 17.7 (>60)
[2018-08-24] MEDS: Tiotropium CAP.INH* CAP.INH/18 MCG (USE ORDER SET !) INH SCH (07:53)
[2018-08-24] MEDS: Hydrocodone/Acetamin 10/325 1 TAB PO PRN (07:57)
[2018-08-24] MEDS: Pantoprazole TAB * 40 MG TAB PO SCH (07:57)
[2018-08-24 08:17] LABS: ABS Basophils 0.1 10^3/ul (0-0.2); ABS Eosinophils 0.1 10^3/ul (0-0.6); ABS Lymphocytes 1.5 10^3/ul (1.0-4.8); ABS Monocytes 1.2 10^3/ul (0-0.8); ABS Neutrophils 6.9 10^3/ul (1.5-7.7); ABS Nucleated RBC 0 10^3/ul; Eosinophil % 1.4 %; Hematocrit 31 % (33-41); Hemoglobin 10.1 g/dL (12.0-16.0); Lymphocyte % 15.7 %; Mean Corpuscular HGB Conc 33 g/dL (31-36); Mean Corpuscular Hemoglobin 25 pg (27-31); Mean Corpuscular Volume 75 fL (80-97); Mean Platelet Volume 8.4 fL (7.4-10.4); Nucleated Red Blood Cells % 0.1; Platelet Count 230 10^3/uL (150-450); Red Blood Count 4.14 10^6 /uL (3.70-4.87); Red Cell Distribution Width 20 % (10.5-15); White Blood Count 9.9 10^3/uL (3.5-10.8)
--- NOTE | 2018-08-24 08:23 | PN ---
Subjective Date of Service: 08/24/18 Interval History: Pt complaint of worsening of her chronic back pain on reduced opioids from home home med. She has been through a lot of stress given the of the son who had been living with her and very close to her, two weeks ago. The is planned next week 08/31. She was further distraught that she was initially placed in the room that one of her other sons in 8 years ago last night. Sleep has been poor even when she was on trazodone. Has not seen a therapist. Not interested in mobile health vehicle operator visit. 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 Baseline weight is about 230-[address] Mart increased to 40/60 torsemide alternating when she was 240lbs. She had not been urinating much days prior to admission. Objective Active Medications: Acetaminophen (Tylenol Tab*) 650 mg PO Q4H PRN PRN Reason: FEVER/PAIN Hydrocodone Bitart/Acetaminophen ([place] 10/325 (Nf)) 1 tab PO Q6H PRN PRN Reason: PAIN Last Admin: 08/24/18 07:57 Dose: 1 tab Al Hydrox/Mg Hydrox/Simethicone (Maalox Plus*) 30 ml PO Q6H PRN PRN Reason: INDIGESTION Albuterol (Ventolin 2.5 Mg/3 Ml Neb.Lorie*) 2.5 mg INH Q4H PRN PRN Reason: SOB/WHEEZING Albuterol (Ventolin Hfa Inhaler*) 2 puff INH Q4H PRN PRN Reason: SOB/WHEEZING Alprazolam (Xanax Tab*) 0.25 mg PO TID PRN PRN Reason: ANXIETY Last Admin: 08/24/18 00:46 Dose: 0.25 mg Amiodarone HCl (Cordarone Tab*) 200 mg PO DAILY JL Atorvastatin Calcium (Lipitor*) 80 mg PO BEDTIME JL Last Admin: 08/23/18 23:12 Dose: 80 mg Device (Tiotropium Inhaler Device*) 1 each INH 0900 ONE Stop: 08/24/18 09:01 Last Admin: 08/24/18 07:53 Dose: 1 each Dextrose (D50w Syringe 50 Ml*) 12.5 gm IV PUSH .FOR FS < 60 - SS PRN PRN Reason: FS < 60 Ezetimibe (Zetia Tab*) 10 mg PO DAILY [facility] Ferrous Sulfate (Ferrous Sulfate Tab*) 325 mg PO DAILY [facility] Heparin Sodium (Porcine) (Heparin Vial(*)) 5,000 units SUBCUT Q8HR [facility] Last Admin: 08/24/18 05:00 Dose: 5,000 units Insulin Human Lispro (Humalog*) 0 units SUBCUT AC [facility]; Protocol Levothyroxine Sodium (Synthroid Tab*) 175 mcg PO 0600 [facility] Last Admin: 08/24/18 05:01 Dose: 175 mcg Mometasone Furoate (Asmanex 220 Mcg Mdi *) 2 puff INH QPM [facility] Last Admin: 08/24/18 00:42 Dose: Not Given Pantoprazole Sodium (Protonix Tab*) 40 mg PO DAILY [facility] Last Admin: 08/24/18 07:57 Dose: 40 mg Pregabalin (Lyrica Cap(*)) 50 mg PO BEDTIME [facility] Last Admin: 08/23/18 23:12 Dose: 50 mg Sertraline HCl (Zoloft*) 200 mg PO DAILY [facility] Tiotropium Lee (Spiriva Cap.Inh*) 1 cap INH DAILY [facility] Last Admin: 08/24/18 07:53 Dose: 1 cap Vital Signs - 8 hr 08/24/18 08/24/18 08/24/18 00:46 01:51 03:37 Temperature 97.7 F Pulse Rate 66 Respiratory 18 18 18 Rate Blood Pressure 98/49 (mmHg) O2 Sat by Pulse 99 Oximetry 08/24/18 08/24/18 08/24/18 04:01 07:30 07:53 Temperature 97.7 F Pulse Rate 66 68 Respiratory 18 16 17 Rate Blood Pressure 128/54 (mmHg) O2 Sat by Pulse 100 99 Oximetry 08/24/18 08/24/18 07:57 08:00 Temperature Pulse Rate Respiratory 18 18 Rate Blood Pressure (mmHg) O2 Sat by Pulse Oximetry Oxygen Devices in Use Now: Nasal Cannula Appearance: NAD Eyes: No Scleral Icterus, PERRLA Ears/Nose/Mouth/Throat: NL Teeth, Lips, Gums Neck: NL Appearance and Movements; NL JVP, Trachea Midline Respiratory: Symmetrical Chest Expansion and Respiratory Effort, Clear to Auscultation Cardiovascular: RRR, - - 2/6 systolic murmur loudest RUSB. Abdominal: - - ostomy with dark green liquid stool, mild tenderness left lateral to ostomy(chronic), soft, no rebound Extremities: - - lymphadema, nonpitting, in compression stocking. Skin: No Rash or Ulcers Neurological: Alert and Oriented x 3 Lines/Tubes/Other Access: Clean, Dry and Intact Decker - light yellow urine. Nutrition: Taking PO's Result Diagrams: 08/24/18 08:07 08/24/18 05:36 Additional Lab and Data: Laboratory Results - last 24 hr 08/23/18 08/24/18 08/24/18 21:41 05:36 07:54 WBC RBC Hgb Hct MCV MCH MCHC RDW Plt Count MPV Neut % (Auto) Lymph % (Auto) [place] % (Auto) Eos % (Auto) Baso % (Auto) Absolute Neuts (auto) Absolute Lymphs (auto) Absolute Monos (auto) Absolute Eos (auto) Absolute Basos (auto) Absolute Nucleated RBC Nucleated RBC % Sodium 128 L Potassium 3.5 Chloride 96 L Carbon Dioxide 19 L Anion Gap 13 H BUN 89 H Creatinine 2.69 H Est GFR ( Amer) 21.4 Est GFR (Non-Af Amer) 17.7 BUN/Creatinine Ratio 33.1 H Glucose 151 H POC Glucose (mg/dL) 100 Calcium 8.9 Troponin I 0.03 08/24/18 08/24/18 08/24/18 08:07 12:23 17:05 WBC 9.9 RBC 4.14 Hgb 10.1 L Hct 31 L MCV 75 L MCH 25 L MCHC 33 RDW 20 H Plt Count 230 MPV 8.4 Neut % (Auto) 70.2 Lymph % (Auto) 15.7 [place] % (Auto) 11.8 Eos % (Auto) 1.4 Baso % (Auto) 0.9 Absolute Neuts (auto) 6.9 Absolute Lymphs (auto) 1.5 Absolute Monos (auto) 1.2 H Absolute Eos (auto) 0.1 Absolute Basos (auto) 0.1 Absolute Nucleated RBC 0 Nucleated RBC % 0.1 Sodium Potassium Chloride Carbon Dioxide Anion Gap BUN Creatinine Est GFR ( Amer) Est GFR (Non-Af Amer) BUN/Creatinine Ratio Glucose POC Glucose (mg/dL) 91 144 H Calcium Troponin I Microbiology and Other Data: Microbiology 08/24/18 10:45 Stool Stool Gross Appearance - Final 08/24/18 10:45 Stool Stool Occult Blood (KEATON) - Final Assess/Plan/Problems-Billing Assessment: 67 year old female PMH pAfib, NIDDM, may-thurner syndrome, chronic back pain, HTN, COPD(on 2L), recent GIB (off xarelto since), ostomy for bowel obstruction presents with syncope and ALEXIS. - Patient Problems (1) Syncope Current Visit: Yes Status: Acute Code(s): R55 - SYNCOPE AND COLLAPSE SNOMED Code(s): 216355544 Comment: in setting of ALEXIS and increased dose of diuretics and liquid stool per ostomy. get orthostatic vital signs. ECHO pending: stable with no significant changes. Has pAfib and has been off her xarelto since GIB 08/01/18. CTH with old left frontal lacunar infarction but no acute. (2) ALEXIS (acute kidney injury) Current Visit: No Status: Acute Code(s): N17.9 - ACUTE KIDNEY FAILURE, UNSPECIFIED SNOMED Code(s): 57846108 Comment: home 2.5mg ramipril. torsemide and aldactone held. susptected pre-renal in setting of liquid ostomy output and increased diuretics as outpatient. mIVF. baseline 1.1. improved from 3.2 to 2.[address] abd/pelvis remove decker in AM. (3) COPD (chronic obstructive pulmonary disease) Current Visit: No Status: Acute Code(s): J44.9 - CHRONIC OBSTRUCTIVE PULMONARY DISEASE, UNSPECIFIED SNOMED Code(s): 99142719 Comment: Stable and without signs of exacerbation. Continue current inhaler regimen (spiriva, mometazone, albuterol). Uses O2 2L at home 24 hrs. (4) Hx of pulmonary embolus Current Visit: No Status: Acute Code(s): Z86.711 - PERSONAL HISTORY OF PULMONARY EMBOLISM SNOMED Code(s): 452094815 Comment: very distant hx of DVT. ?past denials of PE hx (5) Morbid obesity Current Visit: No Status: Acute Code(s): E66.01 - MORBID (SEVERE) OBESITY DUE TO EXCESS CALORIES SNOMED Code(s): 534233241 Comment: BMI 40.0 (6) DM2 (diabetes mellitus, type 2) Current Visit: No Status: Chronic Comment: glipizide/metformin held, cont SSI (7) Diastolic CHF Current Visit: No Status: Chronic Code(s): I50.30 - UNSPECIFIED DIASTOLIC ( CONGESTIVE) HEART FAILURE SNOMED Code(s): 719987331 Comment: Currently hypovolemic. home diuretics held (8) HTN (hypertension) Current Visit: No Status: Chronic Code(s): I10 - ESSENTIAL (PRIMARY) HYPERTENSION SNOMED Code(s): 84871650 Comment: hypotensive intermittently. holding ramipril/aldactone/torsemide (9) History of coronary artery disease Current Visit: No Status: Chronic Code(s): Z86.79 - PERSONAL HISTORY OF OTHER DISEASES OF THE CIRCULATORY SYSTEM SNOMED Code(s): 027093406 Comment: Stable. Hx of cardiac arrest 2nd vtach; nonstemi in 11/2010. S/P bypass with graft. (10) S/P aortic valve replacement with bioprosthetic valve Current Visit: No Status: Chronic Priority: Low Code(s): Z95.4 - PRESENCE OF OTHER HEART-VALVE REPLACEMENT SNOMED Code(s): 1712863794022 Comment: porcine valve noted with stable function on ECHO 08/24/18 Status and Disposition: medicine inpatient. possible d/c 08/25 if kidney function continues to improve.
[2018-08-24] MEDS ORDERED: Spiriva Inhaler DEVICE* 1 EACH DEVICE INH ONE (09:00)
[2018-08-24] MEDS: Insulin LISPRO* 1 UNITS UNIT SUBCUT SCH ×3 (10:20→18:39)
[2018-08-24] MEDS: Sertraline* 100 MG TAB PO SCH (10:21)
[2018-08-24] MEDS: Ferrous Sulfate TAB* 325 MG PO SCH (10:21)
[2018-08-24] MEDS: Amiodarone TAB* 200 MG PO SCH (10:22)
[2018-08-24] MEDS: Ezetimibe TAB* 10 MG PO SCH (10:22)
--- NOTE | 2018-08-24 12:14 | ECHO ---
Patient: KENYETTA WATSON [facility] Rec#: [id number] : 1950 Date: 08/24/2018 Age: 67y Height: 163 cm / 64.2 in Weight: 105 kg / 231.4 lbs Sex: F BSA: 2.09 Room#: [facility] Admit Date#: 08/23/2018 Type: Inpatient Referring: Kezia Ruiz Reading: Raven Wooten MD Metal Trimmer: Teetee Persaud RN RDCS CC: Kajal Simons MD Transthoracic Echocardiogram Indication: Chest pain BP: 98/49 HR: 60 Rhythm: NSR Findings History: CAD S/P CABG, S/P AVR #21 Pearce Magna pericardial valve 2010, PAF, pacemaker, diastolic heart failure, HTN, DM, thyroid disease, COPD, former smoker, PE, morbid obesity Technical Comments: The study quality is fair. The study is technically limited due to patient body habitus. The study is technically limited due to the patient's history of COPD. Left Ventricle: The left ventricular chamber size is mildly dilated. Moderate concentric left ventricular hypertrophy is observed. There is a focal wall motion abnormality present. Left ventricular systolic function is at the lower limits of normal. The estimated ejection fraction is 50-55%. The assessment of diastolic function is non-diagnostic. Left Atrium: The left atrium is moderately dilated. Right Ventricle: The right ventricle is not well visualized. The right ventricle is slightly dilated. The right ventricular global systolic function is low normal. A pacemaker wire is visualized in the right ventricle. Right Atrium: The right atrial cavity size is normal. A pacemaker wire is visualized in the right atrium. Aortic Valve: There is no evidence of aortic regurgitation. The mean gradient of the aortic valve is 19 mmHg. The peak instantaneous gradient of the aortic valve is 40 mmHg. The aortic valve area, by peak velocities, is calculated at 1.4 cm2. The aortic valve area, by VTI's, is calculated at 1.2 cm2. A bio-prosthetic aortic valve is present. The bio-prosthetic aortic valve appears to be functioning normally. Mitral Valve: Moderate mitral annular calcification present. The mitral valve leaflets are mildly thickened. There is mild to moderate mitral regurgitation. There is no evidence of mitral stenosis. Tricuspid Valve: The tricuspid valve structure is not well visualized. There is trace to mild tricuspid regurgitation. Unable to estimate the right ventricular systolic pressure. There is no tricuspid stenosis. Pulmonic Valve: The pulmonic valve structure is not well visualized. There is no evidence of pulmonic regurgitation. There is no pulmonic stenosis. Pericardium: There is no significant pericardial effusion. A pericardial fat pad is visualized. Aorta: There is no dilatation of the ascending aorta. The aortic arch is not well visualized. There is no dilation of the aortic root. Pulmonary Artery: The main pulmonary artery is not well visualized. Venous: The venous system is not well visualized. The inferior vena cava is not visualized. Summary: There are no significant changes when compared to the previous study done on 08/03/2017, no overt significant changes. Conclusions The left ventricular chamber size is mildly dilated. Moderate concentric left ventricular hypertrophy is observed. Left ventricular systolic function is at the lower limits of normal. The estimated ejection fraction is 50-55%. The assessment of diastolic function is non-diagnostic. The left atrium is moderately dilated. A pacemaker wire is visualized in the right ventricle. A pacemaker wire is visualized in the right atrium. A bio-prosthetic aortic valve is present. The bio-prosthetic aortic valve appears to be functioning normally. There is mild to moderate mitral regurgitation. There is trace to mild tricuspid regurgitation. Unable to estimate the right ventricular systolic pressure. Measurements Name Value Normal Range RVIDd (AP) 2D 2.9 cm (0.9 - 2.6) RVDdMajor (2D) 4 cm (2.2 - 4.4) RAd ISD 4CH 4.3 cm (3.4 - 4.9) RA (A4C)W 4.3 cm (2.9 - 4.6) IVSd (2D) 1.4 cm (0.6 - 1) LVPWd (2D) 1.4 cm (0.6 - 1) LVIDd (2D) 5.7 cm (3.6 - 5.4) LVIDs (2D) 4.8 cm - LV FS (2D) 16 % (25 - 45) Aortic Annulus 1.9 cm (1.4 - 2.6) Ao root diameter (2D) 2.9 cm (2.1 - 3.5) Ascending Ao 3.1 cm (2.1 - 3.4) LA dimension (AP) 2D 4.2 cm (2.3 - 3.8) LAd ISD 4CH 4.3 cm (2.9 - 5.3) LA ISD 4CH W 5.1 cm (2.5 - 4.5) Name Value Normal Range LA ESV BP (A/L) index 42.1 ml/m2 - Name Value Normal Range MV E-wave Vmax 1.2 m/sec - MV deceleration time 306 msec - MV A-wave Vmax 1.1 m/sec - MV E:A ratio 1.1 ratio - LV septal e' Vmax 0.06 m/sec - LV lateral e' Vmax 0.06 m/sec - LV E:e' septal ratio 20 ratio - LV E:e' lateral ratio 20 ratio - Name Value Normal Range AV Vmax 3.2 m/sec - AV VTI 75 cm - AV peak gradient 40 mmHg - AV mean gradient 19 mmHg - LVOT diameter 2 cm - LVOT Vmax 1.4 m/sec - LVOT VTI 28.2 cm - LVOT peak gradient 7 mmHg - LVOT mean gradient 4 mmHg - DOI (VTI) 0.38 ratio - DOI (Vmax) 0.44 ratio - BARI (continuity Vmax) 1.4 cm2 - BARI (continuity VTI) 1.2 cm2 - Name Value Normal Range MR Vmax 5.3 m/sec - MR VTI 156 cm - MR volume (PISA) 28.1 ml - MR flow (PISA) 95 ml/sec - MR ERO 0.18 cm2 - MR PISA radius 0.7 cm - MR alias Vmax 30.8 cm/sec - Name Value Normal Range PV Vmax 1.1 m/sec -
[2018-08-24] MEDS ORDERED: oxyCODONE TAB* 5 MG TAB PO PRN (14:34)
[2018-08-24] MEDS ORDERED: Melatonin 3 MG TAB PO SCH (21:00)
[2018-08-24] MEDS: Pregabalin CAP(*) 50 MG PO SCH (21:44)
[2018-08-24] MEDS: Acetaminophen TAB* 325 MG PO PRN (21:45)
[2018-08-24] MEDS: Atorvastatin* 80 MG TAB PO SCH (21:45)
[2018-08-25] MEDS: Levothyroxine TAB* 175 MCG TAB PO SCH (05:41)
[2018-08-25] MEDS: Heparin VIAL(*) 5000 UNITS/ML VIAL (FIVE THOUSAND) SUBCUT SCH (05:42)
[2018-08-25 07:59] VITALS: BP 131/55
[2018-08-25] MEDS: Tiotropium CAP.INH* CAP.INH/18 MCG (USE ORDER SET !) INH SCH (08:13)
[2018-08-25 09:10] LABS: BUN/Creatinine Ratio 33.8 (8-20); Calcium 8.8 mg/dL (8.6-10.3); EGFR African American 40.7 (>60); EGFR Non-African American 33.6 (>60); Magnesium 2.3 mg/dL (1.9-2.7); Potassium 3.9 mmol/L (3.5-5.0)
[2018-08-25] MEDS: Amiodarone TAB* 200 MG PO SCH (09:14)
[2018-08-25] MEDS: Ferrous Sulfate TAB* 325 MG PO SCH (09:15)
[2018-08-25] MEDS: Ezetimibe TAB* 10 MG PO SCH (09:15)
[2018-08-25] MEDS: Pantoprazole TAB * 40 MG TAB PO SCH (09:15)
[2018-08-25] MEDS: Sertraline* 100 MG TAB PO SCH (09:15)
[2018-08-25] MEDS: Acetaminophen TAB* 325 MG PO PRN (09:15)
[2018-08-25] MEDS: Insulin LISPRO* 1 UNITS UNIT SUBCUT SCH (09:16)
[2018-08-25 09:21] LABS: ABS Basophils 0.1 10^3/ul (0-0.2); ABS Eosinophils 0.2 10^3/ul (0-0.6); ABS Lymphocytes 1.2 10^3/ul (1.0-4.8); ABS Monocytes 0.7 10^3/ul (0-0.8); ABS Neutrophils 4.5 10^3/ul (1.5-7.7); ABS Nucleated RBC 0 10^3/ul; Eosinophil % 2.9 %; Hematocrit 30 % (33-41); Hemoglobin 9.4 g/dL (12.0-16.0); Lymphocyte % 17.9 %; Mean Corpuscular HGB Conc 31 g/dL (31-36); Mean Corpuscular Hemoglobin 24 pg (27-31); Mean Corpuscular Volume 76 fL (80-97); Mean Platelet Volume 8.9 fL (7.4-10.4); Nucleated Red Blood Cells % 0; Platelet Count 214 10^3/uL (150-450); Red Blood Count 3.96 10^6 /uL (3.70-4.87); Red Cell Distribution Width 20 % (10.5-15); White Blood Count 6.6 10^3/uL (3.5-10.8)
--- NOTE | 2018-08-25 13:15 | DS ---
DISCHARGE SUMMARY: DATE OF ADMISSION: 08/23/18 DISCHARGE OF DISCHARGE: 08/25/18 ADMITTING PROVIDER: Kezia Riuz MD ATTENDING PHYSICIAN ON DAY OF DISCHARGE: Rodolfo Hanna MD PRIMARY CARE PHYSICIAN: Dr. Kajal Simons. CHIEF COMPLAINT: Syncopal episode; reduced urine output. PRINCIPAL DIAGNOSES: 1. Syncope. 2. Acute kidney injury. 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 She had 2 weeks prior to admission been increased on her torsemide diuretics from 40 mg everyday to alternating with 60 mg every other day for increased weight of approximately 10 pounds over her baseline of approximately 230 to 231. She was following up in Dr. Simons's office afternoon of admission when she was noticed to lose consciousness while sitting in her office. She was noted to be hypotensive initially before syncope 100/80 and then on recheck right before syncope 80/50. Please see H and P of Dr. Kezia Ruiz for full details. Dr. Simons emergently sent the patient [place] [facility] for further evaluation. She had a CT of her head noncontrast, which showed no evidence of intracranial abnormality. There was an old lacunar infarct in the left frontal lobe. Most notably from initial labs was acute kidney injury with a creatinine of 3.24 up from her baseline, most recently between 1.1 and 1.3. She had leukocytosis of 13.1. She is chronically anemic, recently started on iron supplements in the setting of her GI bleed. She was hyponatremic to sodium of 129. BNP was improved from prior at 127. She was thought to be overdiuresed and hypovolemic. She had an echocardiogram transthoracic, which was stable from prior with showing good function of her bioprosthetic aortic valve. The prior was on 08/03/17. She had ejection fraction of 50% to 55%, left atrium moderately dilated, [id number] mitral regurgitation, [id number] tricuspid regurgitation, unable to estimate RVSP, moderate concentric left ventricular hypertrophy was observed. The patient had her ramipril, Aldactone, and torsemide held on admission given the setting of ALEXIS. Notably, she also had a CT abdomen and pelvis without contrast, which demonstrated: 1. 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 Again seen was no obstruction or strangulation. 2. Distal colonic diverticulosis. She had a renal ultrasound, which demonstrated mild renal parenchymal disease and age-related cortical thinning. She also initially got 1 L of normal saline bolus and 10 hours of 100 cc an hour LR overnight initial. Her creatinine improved each day, 2.69 on hospital day #2 and 1.54 near her baseline on hospital day #3 and was considered stable for discharge. She initially had a Hendrix placed on admission that was removed on day of discharge and has been able to void without difficulty since then. Course was complicated by her chronic lower back pain, which improved with reinitiation of opioid medications similar to her home dosing, though formulary changed. She notably was scheduled to follow up with her vascular surgeon in the coming week to discuss possible resumption of her Xarelto that has been held since her 08/01/18 GI bleed. She had repeat iron studies performed, which showed improvement from a month prior. Her iron was 53 up from 17, percent sat was 9 up from 3, ferritin was 25.8 up from 16.4. She had troponins, which were negative x2, 0.03. Her EKG at [facility] showed normal sinus rhythm, no ST elevations or depressions, normal T waves, normal axis, QTc prolonged at 597. She attests to a great deal of stress given the fact that one of her sons that she has lived with for a number of years and was very close with 2 weeks ago and she has been dreading the services upcoming next week on 08/31/18. Notably, her course was also complicated by traumatic flashbacks to her other son's 8 years ago when she was temporarily placed in the same room on admission. She is recommended to follow up with Dr. Simons and establish care with mental health counseling services, which she has never pursued before , which her family, namely her other son and daughter strongly encouraged her to pursue as well. She notably is already on sertraline 200 mg a day. She has been trialed on trazodone as an outpatient and stopped for insomnia issues. She has been started on melatonin here, which she did get some improvement with. DISCHARGE MEDICATIONS: Include: 1. Albuterol nebulizer 2.5 mg inhaled q.4 hours p.r.n. and MDI 2 puffs q.4 hours p.r.n. 2. Xanax 0.25 mg p.o. t.i.d. p.r.n. 3. Amiodarone 200 mg p.o. daily. 4. Atorvastatin 80 mg p.o. daily. 5. Zetia 10 mg p.o. daily. 6. Flovent 2 puffs inhaled b.i.d. 7. Synthroid 175 mcg p.o. daily. 8. Omeprazole 40 mg p.o. daily. 9. Lyrica 50 mg p.o. at bedtime. 10. Sertraline 200 mg p.o. daily. 11. Spiriva 1 capsule daily. 12. Epinephrine IM (EpiPen) p.r.n. 13. Ferrous sulfate 325 mg p.o. daily. 14. Glipizide 2.5 mg p.o. daily. 15. Hitchcock 10/325 one tab p.o. q.6 hours p.r.n. 16. Ensure liquid 237 mL p.o. daily. 17. Melatonin 3 mg p.o. at bedtime (new). 18. Metformin 500 mg p.o. b.i.d. Please hold metformin until can be evaluated again with repeat BMP by Dr. Simons. 19. Ramipril 1 capsule p.o. daily. 20. Spironolactone 25 mg p.o. daily (please start 4 days after discharge). 21. Torsemide 40 mg p.o. daily, please start 4 days after discharge and reduce dose from 40 mg alternating with 60 mg. FOLLOWUP: Followup with Dr. Simons has been arranged on 08/30/18 at 1 p.m. She follows with visiting nursing services. She has an appointment lined up with her vascular surgeon in the coming week. She should have close monitoring of her blood pressures, volume status and report of her urinary output on outpatient evaluation. Her discharge weight was 106.0 kg and day prior the first recorded weight was similar at 105.6 kg. DISCHARGE DIET: Heart healthy, carbohydrate consistent. TIME SPENT ON DISCHARGE: Forty five minutes. [id number]/[facility] #: [id number] SERENA
== END 2018-08-25 12:23 | disposition home health service (06) | DRG 683 ==
LOC: ED 16:12 → MEDTELE 20:38
PROVIDERS: ADMIT Pediatrics; ATTEND Internal Medicine
PROC: 0T9B70Z Drainage of Bladder with Drainage Device, Via Natural or Artificial Opening (ICD-10-PCS; principal; 2018-08-23)
DX: N17.9 Acute kidney failure, unspecified (principal); I50.32 Chronic diastolic (congestive) heart failure; J96.11 Chronic respiratory failure with hypoxia; E87.1 Hypo-osmolality and hyponatremia; R55 Syncope and collapse; I48.0 Paroxysmal atrial fibrillation; I11.0 Hypertensive heart disease with heart failure; I25.10 Atherosclerotic heart disease of native coronary artery without angina pectoris; E78.00 Pure hypercholesterolemia, unspecified; E11.51 Type 2 diabetes mellitus with diabetic peripheral angiopathy without gangrene; J44.9 Chronic obstructive pulmonary disease, unspecified; G47.30 Sleep apnea, unspecified; K57.90 Diverticulosis of intestine, part unspecified, without perforation or abscess without bleeding; K21.9 Gastro-esophageal reflux disease without esophagitis; K44.9 Diaphragmatic hernia without obstruction or gangrene; M19.072 Primary osteoarthritis, left ankle and foot; M19.071 Primary osteoarthritis, right ankle and foot; M19.012 Primary osteoarthritis, left shoulder; M19.011 Primary osteoarthritis, right shoulder; M41.9 Scoliosis, unspecified; Z96.642 Presence of left artificial hip joint; F41.9 Anxiety disorder, unspecified; F32.9 Major depressive disorder, single episode, unspecified; E03.9 Hypothyroidism, unspecified; E86.0 Dehydration; G89.29 Other chronic pain; M54.9 Dorsalgia, unspecified; E66.01 Morbid (severe) obesity due to excess calories; D50.0 Iron deficiency anemia secondary to blood loss (chronic); I08.1 Rheumatic disorders of both mitral and tricuspid valves; K43.5 Parastomal hernia without obstruction or gangrene; G47.00 Insomnia, unspecified; Z98.51 Tubal ligation status; Z95.2 Presence of prosthetic heart valve; Z95.0 Presence of cardiac pacemaker; Z88.8 Allergy status to other drugs, medicaments and biological substances; Z91.030 Bee allergy status; Z68.41 Body mass index [BMI] 40.0-44.9, adult; Z91.041 Radiographic dye allergy status; Z91.013 Allergy to seafood; Z86.718 Personal history of other venous thrombosis and embolism; Z95.1 Presence of aortocoronary bypass graft; Z90.49 Acquired absence of other specified parts of digestive tract; Z86.711 Personal history of pulmonary embolism; Z86.14 Personal history of Methicillin resistant Staphylococcus aureus infection; Z82.49 Family history of ischemic heart disease and other diseases of the circulatory system; Z87.442 Personal history of urinary calculi; Z93.3 Colostomy status; Z87.891 Personal history of nicotine dependence; Z95.828 Presence of other vascular implants and grafts; Z79.84 Long term (current) use of oral hypoglycemic drugs
CPT/HCPCS: 36415; 70450; 71046; 74176; 76775; 80048; 80053; 81003; 82272; 82728; 83540; 83550; 83605; 83735; 83880; 83930; 83935; 84100; 84300; 84443; 84484; 85025; 85610; 87045; 87046; 87077; 87899; 93005; 93306; 94640; 99284; A9270-GY; J1644

== ENCOUNTER 2019-02-10 10:31 | Inpatient (IN) | payer MEDICARE, MEDICAID ==
--- NOTE | 2019-02-10 10:42 | ED ---
Complex/Multi-Sys Presentation - HPI Summary HPI Summary: 68 year old F brought in by EMS to [facility] from home where she lives alone complains of vomiting and watery, dark diarrhea since 18:00 yesterday. Patient denies bloody stools. Patient reports decreased appetite. She states that she has only been drinking addi agnes. Patient additionally complains of sharp, burning, mid sternal chest pain rated 7/10 in severity that started this morning. Patient reports shortness of breath an that she is coughing up phelgm. Symptoms aggravated by nothing. Symptoms alleviated by nothing. EMS administered aspirin 324 mg PO and 1 NTG without relief. BG 206 per EMS. - History Of Current Complaint Time Seen by Provider: 02/10/19 10:34 Hx Obtained From: Patient, EMS Onset/Duration: Lasting Hours, Still Present Timing: Constant Severity Currently: Moderate Aggravating Factor(s): Nothing Alleviating Factor(s): Nothing Associated Signs And Symptoms: Positive: Other - decreased appetite, shortness of breath, cough; NEG: bloody stools - Allergies/Home Medications Allergies/Adverse Reactions: Allergies Allergy/AdvReac Type Severity Reaction Status Date / Time bee venom protein (honey bee) Allergy Severe Rash Verified 08/23/18 18:21 shellfish derived Allergy Severe Hives Verified 08/23/18 18:21 Iodinated Contrast Media Allergy Intermediate Hives Verified 08/23/18 18:21 [Iodinated Contrast- Oral and IV Dye] celecoxib Allergy Hives Verified 08/23/18 18:21 Home Medications: Home Medications Cholecalciferol (Vitamin D3) [Vitamin D3] 1,000 unit PO DAILY 02/10/19 [History Confirmed 02/10/19] Metoprolol Succinate [Toprol Xl] 50 mg PO DAILY 02/10/19 [History Confirmed ] Mupirocin 2% OINT* [Bactroban 2 % Oint*] 1 applic TOPICAL BID 02/10/19 [History Confirmed 02/10/19] Oxycodone HCl/Acetaminophen [Percocet 5-325 mg Tablet] 1 tab PO Q6HR PRN [History Confirmed 02/10/19] metOLazone [Metolazone] 2.5 mg PO DAILY 02/10/19 [History Confirmed 02/10/19] PMH/Surg Hx/FS Hx/Imm Hx Previously Healthy: No Endocrine/Hematology History: Reports: Hx Anticoagulant Therapy - Xarelto, Hx Diabetes, Hx Thyroid Disease, Hx Anemia, Other Endocrine/Hematological Disorders - 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, causing DVTs) Cardiovascular History: Reports: Hx Atrial Fibrillation, Hx Cardiac Arrest, Hx Congestive Heart Failure, Hx Coronary Artery Disease, Hx Deep Vein Thrombosis, Hx Hypercholesterolemia, Hx Hypotension, Hx Hypertension, Hx Pacemaker/ICD - PACEMAKER 03/09/18, Hx Peripheral Vascular Disease, Hx Valvular Heart Disease, Other Cardiovascular Problems/Disorders - valve replacement, CABG Respiratory History: Reports: Hx Asthma, Hx Chronic Obstructive Pulmonary Disease (COPD), Hx Pneumonia, Hx Pulmonary Embolism, Hx Sleep Apnea, Other Respiratory Problems/Disorders - home o2, 2.5L GI History: Reports: Hx Diverticulosis, Hx Gall Bladder Disease, Hx Gastroesophageal Reflux Disease, Hx Gastrointestinal Bleed - 08/22/16 admission, Hx Hiatal Hernia - ventral hernia, Other GI Disorders - DIVERTICULITIS, SBO with colostomy, bowel AVM's History: Reports: Hx Kidney Stones, Hx Renal Disease - KIDNEY STONES Denies: Hx Dialysis, Other Problems/Disorders Musculoskeletal History: Reports: Hx Arthritis - legs and shoulders, Hx Back Problems, Hx Bursitis, Hx Scoliosis, Other Musculoskeletal History - Left hip replacement Denies: Hx Osteoporosis Sensory History: Reports: Hx Contacts or Glasses Denies: Hx Deafness, Hx Hearing Aid Opthamlomology History: Reports: Hx Contacts or Glasses Neurological History: Denies: Hx Dementia, Hx Developmental Delay, Hx Headaches, Hx Migraine, Hx Nerve Disease, Hx Seizures, Hx Spinal Cord Injury, Hx Transient Ischemic Attacks (TIA), Other Neuro Impairments/Disorders Psychiatric History: Reports: Hx Anxiety, Hx Depression Denies: Hx Panic Disorder, Hx Substance Abuse - Cancer History Cancer Type, Location and Year: none - Surgical History Surgery Procedure, Year, and Place: TUBAL LIGATION 1979, [facility] [place] , CHOLECYSTECTOMY [facility] [place], 2008, KIDNEY STONES REMOVED 1998, [facility] [place], TRIPLE BYPASS, HEART VALVE REPLACEMENT 2010, [facility], LEFT HIP REPLACED, 2009, [facility]. TONSILECTOMY A CHILD. COLOSTOMY 2015, IVC filter. pacemaker 2018 Hx Anesthesia Reactions: No - Immunization History Date of Tetanus Vaccine: Up to date Date of Influenza Vaccine: Fall 2011 Infectious Disease History: Reports: Hx of Known/Suspected MRSA - 08/22/16 [facility] + MRSA nares, Hx Shingles Denies: Hx Hepatitis, Hx Human Immunodeficiency Virus (HIV) - Family History Known Family History: Positive: Cardiac Disease, Other - neg: anesthesia reaction - Social History Alcohol Use: None Hx Substance Use: No Substance Use Type: Reports: None Hx Tobacco Use: Yes Smoking Status (MU): Former Smoker Type: Cigarettes Have You Smoked in the Last Year: No Review of Systems Positive: Chest Pain Positive: Shortness Of Breath, Cough Gastrointestinal: Negative - bloody stools Positive: Vomiting, Diarrhea, Other - decreased appetite All Other Systems Reviewed And Are Negative: Yes Physical Exam - Summary Physical Exam Summary: VITAL SIGNS: Reviewed. GENERAL: Patient is an obese FEMALE who is lying comfortable in the stretcher. Patient is not in any acute respiratory distress. HEAD AND FACE: No signs of trauma. No ecchymosis, hematomas or skull depressions. No sinus tenderness. EYES: PERRLA, EOMI x 2, No injected conjunctiva, no nystagmus. EARS: Hearing grossly intact. Ear canals and tympanic membranes are within normal limits. MOUTH: Oropharynx within normal limits. NECK: Supple, trachea is midline, no adenopathy, no JVD, no carotid bruit, no c- spine tenderness, neck with full ROM. CHEST: Symmetric, no tenderness at palpation. LUNGS: Clear to auscultation bilaterally. No wheezing or crackles. CVS: Regular rate and rhythm, S1 and S2 present, no murmurs or gallops appreciated. ABDOMEN: Soft, non-tender. No rebound, no guarding, and no masses palpated. Bowel sounds are normal. Patient has abdominal distension secondary to her obesity and a colostomy bag which is empty EXTREMITIES: FROM in all major joints, no edema, no cyanosis or clubbing. Patient has brown discoloration to her legs secondary to chronic vascular disease NEURO: Alert and oriented x 3. No acute neurological deficits. Speech is normal and follows commands. SKIN: Dry and warm. Triage Information Reviewed: Yes Vital Signs Reviewed: Yes Diagnostics - Laboratory Result Diagrams: 02/10/19 11:05 02/10/19 11:05 Lab Statement: Any lab studies that have been ordered have been reviewed, and results considered in the medical decision making process. - Radiology Chest x-ray Radiology Interpretation Completed By: Radiologist Summary of Radiographic Findings: No acute cardiopulmonary process by radiograph. ED physician has reviewed this report. - EKG 1047 Cardiac Rate: NL - 76 BPM EKG Rhythm: Sinus Rhythm EKG Comparison: No Significant Change - 08/23/18 Summary of EKG Findings: Sinus rhythm [address] elevations. Q waves in leads [address] depressions in V4, V5, V6. Similar to previous EKG done on 08/23/18 Complex Multi-Symp Course/Dx Assessment/Plan: Blood work shows WBCs 15.2, hemoglobin 10.1, hematocrit 32, platelets 284, sodium 130, chloride 94, carbon dioxide 20, anion gap 16, BUN/ creatinine 95, creatinine 4.06, BNP 202, glucose 165, magnesium 1.4, CRP 40.0 , amylase 143, and lipase 95. Chest x-ray impression: No active cardiopulmonary process. In the ED, the patient was given IV fluids since the patient seems to be dehydrated with acute renal failure. Patient was also given magnesium for the hypomagnesemia. Unable to send the stool sample at this time since the colostomy bag is empty. I discussed my physical exam and findings with Dr. Manzanares from the hospital services who accepted the patient for admission. I was told by the nurse that the patient is hypotensive, therefore, we obtained 2 IV assesses and the patient was given a bolus of fluids. The patient is mentating well. - Diagnoses Provider Diagnoses: Acute renal failure, Diarrhea, Hypotension - Physician Notifications Discussed Care Of Patient With: Joanne Manzanares Time Discussed With Above Provider: 12:33 Instructed by Provider To: Other - Dr. Manzanares, hospitalist, agrees to admit patient. Discharge ED - Sign-Out/Discharge Documenting (check all that apply): Patient Departure - Admit to hospitalist Patient Received Moderate/Deep Sedation with Procedure: No - Discharge Plan Condition: Stable Disposition: ADMITTED TO [facility] - Billing Disposition and Condition Condition: STABLE Disposition: Admitted to [facility] - Attestation Statements Document Initiated by Scribe: Yes Documenting Scribe: Shannon Khan Provider For Whom Sary is Documenting (Include Credential): Jace Echols MD Scribe Attestation: Shannon Love, scribed for Jace Echols MD on 02/10/19 at 1840. Scribe Documentation Reviewed: Yes Provider Attestation: The documentation as recorded by the Shannon nowak accurately reflects the service I personally performed and the decisions made by me, Jace Echols MD Status of Sary Document: Viewed
--- OUTSIDE RECORDS SUMMARY | 2019-02-10 10:59 | XMS REPORT | Summary of Care ---
:1950 Author Organization [facility] Address [address] [facility] [place] [address] Care Team Providers Name Role Phone Kajal Simons MD Primary Care Provider Aure Nagy RN Unavailable Reason for Visit Reason Comments Follow Up Follow up to blood pressure, COPD Encounter Details Date Type Department Care Team Description 01/29/2019 Office Visit [facility] Kristyn, Cardiomyopathy, unspecified type (HCC) (Primary Dx); Practice MD Kajal Type 2 diabetes mellitus without complication, without long-term current use of insulin (HCC); [address] Iron deficiency anemia due to chronic blood loss; [place], [place] [id number] [place] [id number] Acquired hypothyroidism; [phone] Flu vaccine need Allergies Active Allergy Reactions Severity Noted Date Comments Bee Anaphylaxis High 09/17/2008 Celecoxib Hives 09/17/2008 Dye Intravenous Radiographic Imaging Hives Medium 02/01/2013 Contrast Shellfish Allergy Rash 03/27/2010 documented as of this encounter (statuses as of 01/29/2019) Medications Medication Sig Dispensed Refills Start Date End Date Status Incontinence Supply 1 Each by Does 100 Each 0 05/13/2015 Active Disposable ([facility] not apply route FITTED BRIEFS THREE TIMES DAY/NIGHT LG) Does DAILY. not apply Misc albuterol 3 mL by 360 mg 0 03/22/2018 Active (PROVENTIL, Inhalation-SVN VENTOLIN) (2.5 route NEEDED MG/3ML) 0.083% (SOB). Inhalation Nebu Soln albuterol HFA Take 2 Puffs by 1 Inhaler 5 03/22/2018 Active (VENTOLIN) 108 (90 inhalation Base) MCG/ACT EVERY FOUR Inhalation Aero Soln HOURS NEEDED (SOB). fluticasone (FLOVENT Take 2 Puffs by 1 Inhaler 5 03/22/2018 Active HFA) 110 MCG/ACT inhalation Inhalation Aerosol TWICE DAILY. sertraline (ZOLOFT) Take 2 Tabs by 60 Tab 5 03/22/2018 Active 100 MG Oral Tab mouth DAILY. tiotropium (SPIRIVA Take 1 INHL by 30 Cap 5 03/22/2018 Active HANDIHALER) 18 MCG inhalation Inhalation Cap DAILY. ramipril (ALTACE) Take 1 Cap by 30 Cap 11 05/02/2018 Active 2.5 MG Oral Cap mouth DAILY. Nutritional Take 1 Can by 30 Bottle 1 05/15/2018 Active Supplements mouth DAILY AT (GLUCERNA ADVANCE 1400. SHAKE) Oral Liquid Alcohol Swabs TEST BLOOD 100 Each 05/25/2018 Active (PHARMACIST CHOICE SUGARS 2 TIMES ALCOHOL) Does not DAILY apply Pads PHARMACIST CHOICE TEST BLOOD 100 Each 05/25/2018 Active LANCETS Does not SUGARS 2 TIMES apply Misc DAILY ALPRAZolam (XANAX) Take 2 Tabs by 90 Tab 0 06/05/2018 Active 0.25 MG Oral Tab mouth THREE TIMES DAILY NEEDED (anxiety). Max Daily Amount: 1.5 mg. Melatonin 3 MG Oral Take by mouth 0 Active Cap EVERY EVENING. ezetimibe (ZETIA) 10 Take 10 mg by 0 Active MG Oral Tab mouth DAILY. atorvastatin TAKE ONE TABLET 30 Tab 5 09/25/2018 Active (LIPITOR) 80 MG Oral BY MOUTH AT Tab BEDTIME Glucose Blood 1 Each by 100 Each 5 10/06/2018 Active (PRODIGY NO CODING Topical route BLOOD GLUC) In Vitro TWICE DAILY. Strip Blood Glucose 1 Device by 1 Device 10/09/2018 Active Monitor Software Does not apply Does not apply route Device DIRECTED. E11.9 diabetes. Brand: Insurance preferred spironolactone TAKE ONE TABLET 60 Tab 5 10/12/2018 Active (ALDACTONE) 25 MG BY MOUTH TWICE Oral Tab A DAY metoprolol succinate Take 1 Tab by 90 Tab 3 10/25/2018 Active (TOPROL XL) 50 MG mouth DAILY. Oral TABLET SR 24 HRIndications: Paroxysmal atrial fibrillation (HCC) pregabalin (LYRICA) Take 1 Cap by 30 Cap 3 11/01/2018 Active 50 MG Oral Cap mouth EVERY BEDTIME. Max Daily Amount: 50 mg. EPINEPHrine (EPIPEN Inject 0.3 mg 1 Each 0 11/01/2018 Active 2-LUIS ALBERTO) 0.3 MG/0.3ML beneath the Injection Solution skin NEEDED Auto-injector (bee stings). metFORMIN TAKE ONE TABLET 60 Tab 3 11/03/2018 Active (GLUCOPHAGE) 500 MG BY MOUTH TWICE Oral Tab A DAY WITH MEALS metolazone Take 1 Tab by 30 Tab 0 11/20/2018 Active (ZAROXOLYN) 2.5 MG mouth Oral TabIndications: DIRECTED. Ischemic cardiomyopathy cholecalciferol Take 1 Tab by 30 Tab 5 11/20/2018 Active (VITAMIN D) 1000 mouth DAILY. units Oral Tab glipiZIDE TAKE 1/2 TABLET 30 Tab 5 11/24/2018 Active (GLUCOTROL) 5 MG BY MOUTH ONCE Oral Tab DAILY torsemide (DEMADEX) Take 3 Tabs by 270 Tab 1 12/08/2018 Active 20 MG Oral Tab mouth DAILY. Omeprazole 40 MG TAKE ONE 90 Cap 1 12/13/2018 Active Oral CAPSULE DELAYED CAPSULE BY RELEASE MOUTH EVERY DAY mupirocin 1 g by Topical 1 Tube 1 12/18/2018 Active (BACTROBAN) 2 % route TWICE Apply externally DAILY. Ointment amiodarone TAKE ONE TABLET 90 Tab 1 01/01/2019 Active (PACERONE, BY MOUTH EVERY CORDARONE) 200 MG DAY Oral TabIndications: Persistent atrial fibrillation (HCC) OXYcodone-acetaminop Take 1 Tab by 60 Tab 0 01/10/2019 Active hen (PERCOCET) 5-325 mouth EVERY SIX MG Oral HOURS NEEDED TabIndications: (pain). Max Injury of right Daily Amount: 4 knee, initial Tabs. encounter ONETOUCH DELICA USE TO TEST 100 Each 1 01/15/2019 Active LANCETS 33G Does not BLOOD GLUCOSE apply Misc LEVELS TWICE DAILY levothyroxine TAKE ONE TABLET 30 Tab 5 01/15/2019 Active (SYNTHROID) 175 MCG BY MOUTH EVERY Oral Tab DAY BEFORE BREAKFAST torsemide (DEMADEX) Take 2 Tabs by 180 Tab 1 10/04/2018 Discontinued 20 MG Oral Tab mouth DAILY. 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 01/13/2011 Overview: 01/13/2011 Patient was referred to [facility] for a Pulmonary embolism and atrial fibrillation Referred- , Duration - six months 06/2011, diagnosis- PE and A-Fib , INR GOAL- 1.5-2.[address] Tommy Tang, [employer] Update referral 12/2012, 02/2014, 09/2014, 04/2016, 01/2017 Update orders 01/2013, 03/01/14, 03/19/15, 05/05/16, 02/02/17 08/30/17-Warfarin d/c'd until further notice d/t recurrent GI bleed Hip joint replacement by other means 06/27/2010 Left knee DJD 03/20/2010 Asthma 05/05/2009 HTN (hypertension) 09/24/2008 Overview: Replaced inactive diagnosis Hypothyroid GERD (gastroesophageal reflux disease) Depression Chronic pain Elevated cholesterol Wrist fracture CAD (coronary artery disease) Overview: CATH- - 2006 in [place] (aortic stenosis) Overview: mild, 2008 PVD (peripheral vascular disease) Pulmonary embolism documented as of this encounter (statuses as of 01/29/2019) Immunizations Name Administration Dates Next Due Celestone Soluspan (6mg) 11/20/2009 Hyalgan (20 mg) 04/03/2010, 03/27/2010, 03/20/2010, 03/13/2010 Influenza (IM) Preservative Free 01/31/2017, 04/03/2014, 04/12/2013, 02/16/2012, 02/11/2009 Influenza (IM) W/Pres 02/03/2015 Influenza Vaccine 65 Yrs + 01/29/2019 Influenza Vaccine High Dose 02/01/2018, 02/18/2016 PNEUMOCOCCAL POLYSACCHARIDE VACCINE 08/21/2013 Pneumococcal Conjugate(13 Valent) 03/05/2015 documented as of this encounter Social History Tobacco Use Types Packs/Day Years Used Date Former Smoker Cigarettes 0.25 30 Quit: 11/28/2010 Smokeless Tobacco: Never Used Alcohol Use Drinks/Week oz/Week Comments Yes 0 Standard drinks or equivalent 0.0 on occasion Sex Assigned at Date Recorded Not on file Job Start Date Occupation Industry Not on file Not on file Not on file Travel History Travel Start Travel End No recent travel history available. documented as of this encounter Last Filed Vital Signs Vital Sign Reading Time Taken Comments Blood Pressure 128/78 01/29/2019 2:33 PM EDT Pulse 68 01/29/2019 2:33 PM EDT Temperature 37.1 01/29/2019 2:33 PM C (98.7 EDT F) Respiratory Rate - - Oxygen Saturation 96% 01/29/2019 2:33 PM EDT Inhaled Oxygen Concentration - - Weight 117.3 kg (258 lb 9.6 oz) 01/29/2019 2:33 PM EDT Height 162.6 cm (5' 4") 01/29/2019 2:33 PM EDT Body Mass Index 44.39 01/29/2019 2:33 PM EDT documented in this encounter Patient Instructions Patient InstructionsKajal Simons MD - 01/29/2019 2:20 PM EDT1. Take Zaroxolyn 2.5 mg once a day until weight is down to 250 lb 2. Follow up in 1 monthElectronically signed by Kajal Simons MD at 01/2019 2:49 PM EDT documented in this encounter Progress Notes Kajal Simons MD - 01/29/2019 2:20 PM EDT Patient: Mercy Ziegler Date of Service: 01/29/2019 Subjective: Mercy Ziegler is a 68-y.o. female who presents for Chief Complaint Patient presents with Follow Up Follow up to blood pressure, COPD Patient comes follow up CHF, cardiomyopathy, Iron deficiency Gained 9 lb since last visit No increase in SOB or peripheral edema Admits eating out a lot recently Past Medical History: Diagnosis Date Anemia Anxiety (aortic stenosis) aortic valve replacement 2010, Asthma Atrial fibrillation, chronic (HCC) after cardiac surgery Back pain CAD (coronary artery disease) CABG x1 COPD (chronic obstructive pulmonary disease) ([facility]) Coronary artery disease Depression Diabetes mellitus ([facility]) DVT (deep venous thrombosis) ([facility]) stenting of Left iliac vein, balloon angioplasty of iliac vein. Elevated cholesterol GERD (gastroesophageal reflux disease) Heart attack ([facility]) Hx of CABG 3 vessel Hypertension Hypothyroid Morbid obesity ([facility]) MR (mitral regurgitation) moderate 09/2014 Nephrolithiasis Osteoarthritis Left knee Pacemaker dual chamber PE (pulmonary embolism) PVD (peripheral vascular disease) ([facility]) Sleep apnea Wrist fracture 07/01 Outpatient Medications as of 01/29/2019 Medication Sig Dispense Refill albuterol (PROVENTIL, VENTOLIN) (2.5 MG/3ML) 0.083% Inhalation Nebu Soln 3 mL by Inhalation-SVN route NEEDED (SOB). 360 mg 0 albuterol HFA (VENTOLIN) 108 (90 Base) MCG/ACT Inhalation Aero Soln Take 2 Puffs by inhalation EVERY FOUR HOURS NEEDED (SOB). 1 Inhaler 5 Alcohol Swabs (PHARMACIST CHOICE ALCOHOL) Does not apply Pads TEST BLOOD SUGARS 2 TIMES [id number] Each PRN ALPRAZolam (XANAX) 0.25 MG Oral Tab Take 2 Tabs by mouth THREE TIMES DAILY NEEDED (anxiety). Max Daily Amount: 1.5 mg. 90 Tab 0 amiodarone (PACERONE, CORDARONE) 200 MG Oral Tab TAKE ONE TABLET BY MOUTH EVERY DAY 90 Tab 1 atorvastatin (LIPITOR) 80 MG Oral Tab TAKE ONE TABLET BY MOUTH AT BEDTIME 30 Tab 5 Blood Glucose Monitor Software Does not apply Device 1 Device by Does not apply route DIRECTED. E11.9 diabetes. Brand: Insurance preferred 1 Device prn cholecalciferol (VITAMIN D) 1000 units Oral Tab Take 1 Tab by mouth DAILY. 30 Tab 5 EPINEPHrine (EPIPEN 2-LUIS ALBERTO) 0.3 MG/0.3ML Injection Solution Auto-injector Inject 0.3 mg beneath the skin NEEDED (bee stings). 1 Each 0 ezetimibe (ZETIA) 10 MG Oral Tab Take 10 mg by mouth DAILY. fluticasone (FLOVENT HFA) 110 MCG/ACT Inhalation Aerosol Take 2 Puffs by inhalation TWICE DAILY. 1 Inhaler 5 glipiZIDE (GLUCOTROL) 5 MG Oral Tab TAKE 1/2 TABLET BY MOUTH ONCE DAILY 30 Tab 5 Glucose Blood (PRODIGY NO CODING BLOOD GLUC) In Vitro Strip 1 Each by Topical route TWICE DAILY. 100 Each 5 Incontinence Supply Disposable ([facility] FITTED BRIEFS DAY/NIGHT LG) Does not apply Misc 1 Each byDoes not apply route THREE TIMES DAILY. 100 Each 0 levothyroxine (SYNTHROID) 175 MCG Oral Tab TAKE ONE TABLET BY MOUTH EVERY DAY BEFORE BREAKFAST 30 Tab 5 Melatonin 3 MG Oral Cap Take by mouth EVERY EVENING. metFORMIN (GLUCOPHAGE) 500 MG Oral Tab TAKE ONE TABLET BY MOUTH TWICE A DAY WITH MEALS 60 Tab3 metolazone (ZAROXOLYN) 2.5 MG Oral Tab Take 1 Tab by mouth DIRECTED. 30 Tab 0 metoprolol succinate (TOPROL XL) 50 MG Oral TABLET SR 24 HR Take 1 Tab by mouth DAILY. 90 Tab3 mupirocin (BACTROBAN) 2 % Apply externally Ointment 1 g by Topical route TWICE DAILY. 1 Tube 1 Nutritional Supplements (GLUCERNA ADVANCE SHAKE) Oral Liquid Take 1 Can by mouth DAILY AT 1400. 30 Bottle 1 Omeprazole 40 MG Oral CAPSULE DELAYED RELEASE TAKE ONE CAPSULE BY MOUTH EVERY DAY 90 Cap 1 ONETOUCH DELICA LANCETS 33G Does not apply Misc USE TO TEST BLOOD GLUCOSE LEVELS TWICE DAILY 100 Each 1 OXYcodone-acetaminophen (PERCOCET) 5-325 MG Oral Tab Take 1 Tab by mouth EVERY SIX HOURS NEEDED (pain). Max Daily Amount: 4 Tabs. 60 Tab 0 PHARMACIST CHOICE LANCETS Does not apply Misc TEST BLOOD SUGARS 2 TIMES DAILY 100 Each PRN pregabalin (LYRICA) 50 MG Oral Cap Take 1 Cap by mouth EVERY BEDTIME. Max Daily Amount: 50 mg. 30 Cap 3 ramipril (ALTACE) 2.5 MG Oral Cap Take 1 Cap by mouth DAILY. 30 Cap 11 sertraline (ZOLOFT) 100 MG Oral Tab Take 2 Tabs by mouth DAILY. 60 Tab 5 spironolactone (ALDACTONE) 25 MG Oral Tab TAKE ONE TABLET BY MOUTH TWICE A DAY 60 Tab 5 tiotropium (SPIRIVA HANDIHALER) 18 MCG Inhalation Cap Take 1 INHL by inhalation DAILY. 30 Cap5 torsemide (DEMADEX) 20 MG Oral Tab Take 3 Tabs by mouth DAILY. 270 Tab 1 No current facility-administered medications on file as of 01/29/2019. Allergies Allergen Reactions Bee Anaphylaxis Dye Intravenous Radiographic Imaging Contrast Hives Celebrex [Celecoxib] Hives Shellfish Allergy Rash Review of Systems: All remaining review of systems was negative. Objective: BP 128/78 (BP Location: Right arm, Patient Position: Sitting) Pulse 68 Temp 98.7 F (37.1 C) (Tympanic) Ht 5' 4" (1.626 m) Wt 258 lb 9.6 oz (117.3 kg) SpO2 96% BMI 44.39 kg/m2 GENERAL: alert, no distress THROAT: lips, mucosa, and tongue normal: teeth and gums normal LUNGS: clear to auscultation bilaterally HEART: regular rate and rhythm, S1, S2 normal, no murmur, click, rub or gallop EXTREMITIES: varicose veins noted, venous stasis dermatitis noted, trace edema Examination of the feet reveals warm, good capillary refill, normal DP and PT pulses and normal sensory exam. H/H, BNP - stable Component Latest Ref Rng & Units 12/18/2018 12/18/2018 2:19 PM 2:19 PM Sodium 134 - 145 mmol/L 134 Potassium 3.5 - 5.1 mmol/L 4.9 Chloride 98 - 107 mmol/L 100 CO2 22 - 30 mmol/L 23 Glucose (Lab) 70 - 99 mg/dl 111 (H) Creatinine 0.7 - 1.2 mg/dl 2.0 (H) BUN 7 - 17 mg/dl 61 (H) Calcium 8.3 - 10.1 mg/dl 9.1 Albumin 3.5 - 5.0 g/dl 4.1 Phosphorus 2.5 - 4.5 MG/DL 4.4 eGFR See Interpretation Below ml/min/1.73ml Sq 25 BUN/Creatinine Ratio 6 - 22 RATIO 31 (H) Anion Gap 3 - 11 mmol/L 11 Hemoglobin 11.2 - 15.7 G/DL 10.1 (L) Hematocrit 34.1 - 44.9 % 33.9 (L) Patient advised on tests results ICD-9-CM ICD-10-CM 1. Cardiomyopathy, unspecified type (HCC) 425.4 I42.9 2. Type 2 diabetes mellitus without complication, without long-term current use of insulin ([facility]) 250.00 E11.9 COMPREHENSIVE METABOLIC PANEL GLYCOHEMOGLOBIN A1C 3. Iron deficiency anemia due to chronic blood loss 280.0 D50.0 CBC WITH DIFFERENTIAL 4. Acquired hypothyroidism 244.9 E03.9 THYROID STIMULATING HORMONE FREE T4 Patient Instructions 1. Take Zaroxolyn 2.5 mg once a day until weight is down to 250 lb 2. Follow up in 1 month Author: Kajal Simons MD documented in this encounter Plan of Treatment Date Type Specialty Care Team Description 12/10/2017 Ancillary Procedure Radiology Arrived 02/26/2019 Office Visit Family Practice Kajal Simons MD [facility] [place] [address] 03/05/2019 Office Visit Vascular Surgery Flo Dominguez MD [address] [place] [address] 03/19/2019 Office Visit Cardiology Berny Sanders MD [address] [place] [address] 04/23/2019 [facility] Ar[facility]hythm[facility] Name Type Priority Associated Diagnoses Date/Time COMPREHENSIVE METABOLIC Lab Routine Type 2 diabetes mellitus 01/29/2019 3: 08 PM PANEL without complication, EDT without long-term current use of insulin (HCC) GLYCOHEMOGLOBIN A1C Lab Routine Type 2 diabetes mellitus 01/29/2019 3:08 PM without complication, EDT without long-term current use of insulin (HCC) THYROID STIMULATING Lab Routine Acquired hypothyroidism 01/29/2019 3:08 PM HORMONE EDT FREE T4 Lab Routine Acquired hypothyroidism 01/29/2019 3:08 PM EDT CBC WITH DIFFERENTIAL Lab Routine Iron deficiency anemia 01/29/2019 3:08 PM due to chronic blood loss EDT Health Maintenance Due Date Last Done Comments ZOSTER IMMUNIZATION SERIES 2000 (1 of 2) OSTEOPOROSIS SCREENING 11/24/2015 PNEUMOCOCCAL 65+YRS (2 of 2 08/21/2018 03/05/2015, 08/21/2013 - PPSV23) INFLUENZA VACCINE (#1) 2019 02/01/2018, 01/31/2017, 02/18/2016, Additional history exists HEMOGLOBIN A1C 01/26/2019 07/26/2018, 12/10/2017, 08/07/2017, Additional history exists MAMMOGRAM (SCREENING) 02/21/2019 02/21/2018, 01/22/2016, 10/16/2014, Additional history exists LIPID DISORDER SCREENING 09/26/2019 09/25/2018, 07/26/2018, 02/21/2018, Additional history exists DEPRESSION SCREENING 11/02/2019 11/01/2018 FALL RISK ASSESSMENT 11/02/2019 11/01/2018, 11/01/2018 MEDICARE ANNUAL WELLNESS 11/02/2019 11/01/2018, 05/12/2016, VISIT 05/12/2016, Additional history exists FOOT EXAM 01/30/2020 01/29/2019, 01/29/2019, 02/01/2018 Diabetic Eye Exam 11/09/2020 11/09/2018 COLONOSCOPY SCREENING 08/24/2022 08/24/2017, 08/24/2017, 12/22/2016, Additional history exists HPV IMMUNIZATION SERIES Aged Out No longer eligible based on patient's age to complete this topic MENINGOCOCCAL VACCINE IMM Aged Out No longer eligible based on patient's age to complete this topic documented as of this encounter Goals Goal Patient Goal Associated Recent Patient-Stated? Author Type Problems Progress Blood Pressure Blood Pressure HTN 128/78 No Kristyn, < 140/90 (hypertension) (01/29/2019 Kajal, 2:33 PM EDT) Note: Hypertension Care Plan Based on the patient's clinical history and according to JNC 8 guidelines target blood pressure goal is less than 140/90. Based on the patient's last blood pressure of BP: 110/74 mmHg the patient is at at goal. As your provider, it is important that I advise you regarding: your current medications and help you with any challenges you may face taking your medications as directed (ex. instructions, cost, side effects, and interactions). Important lifestyle changes: diet medication management: adjusted medications as appropriate patient education/self-management tools provided: Yes To successfully manage my Hypertension I will: monitor my blood pressure daily, understanding that my goal is less than 140/ 90 per my healthcare provider's recommendation. I will schedule an appointment with my provider if consistent abnormal readings greater than 160/100. take medications every day as prescribed by my healthcare provider and if unable to take them I will discuss with my provider. monitor for symptoms of chest pain, chest tightness/pressure, irregular heartbeat, persistent dizziness, radiating arm pain, and neck or jaw pain. If any of these symptoms are noticed I will seek medical attention immediately by calling 911 follow a diet rich in fruits, vegetables, and low-fat dairy products with reduced content of saturated & total fat. I will reduce my sodium intake daily. An example is the DASH diet. To obtain more information please refer to the DASH Eating Plan listed in Educational Resources. record my blood pressure results. eGmaria elenae is safe and secure way for you to do this in your medical record online. limit alcohol consumption. For men two drinks per day and women one drink per day. if currently smoking, will discuss how to quit smoking with my healthcare provider and work towards quitting. Educational Resources: National Heart, Lung, & Blood [place] http://nhlbi.nih.gov/hbp/index.html The DASH Diet Eating Plan http://www.nhlbi.nih.gov/health/health-topics/ topics/dash/ Academy of Nutrition & DIetetics http://eatright.org National Smoking Cessation Site http://smokefree.gov Blood Pressure < Blood Pressure 128/78 (01/29/2019 No Kajal Simons, 140/90 2:33 PM EDT) Note: This is an individualized treatment (blood pressure) goal for Mercy Ziegler : Displayed above (on the left) is your goal for blood pressure control. Your most recent blood pressure is also shown above, on the right. You should try to achieve blood pressures that are lower than your goal listed above (on the left). Weight increase vs. 18 CHF 34.4 (01/29/2019 2:33 PM No Kajal Simons MD mo min (lbs) < 5 EDT) Note: This is an individualized treatment (congestive heart failure, CHF) goal for Mercy Ziegler: Displayed above (on the right) is how many pounds you are in excess of your lowest weight over the past 18 months. Note that lower numbers are better. Excessive weight gain often indicates fluid reten tion and worsening heart failure. You should contact your doctor immediately if the above number is too high (above your goal, the number on the left). Depression screen (PHQ-9) total score < 5 Depression Kajal Mistry MD Note: This is an individualized treatment (depression) goal for Mercy Ziegler: Displayed above is your goal for a depression screening (PHQ-9) score that would indicate good control of your depression. Glycohemoglobin A1c < 7.0 Diabetes 6.4 (07/26/2018 10:55 No Kajal Simons AM EST) MD Note: This is an individualized treatment (diabetes control, HgbA1C) goal for Mercy Ziegler: Displayed above is your progress towards your HgbA1C goal. Your goal is shown above (on the left); your most recent HgbA1C is shown on the right. Note that lower numbers are better. Keep a regular sleep schedule Lifestyle No Kajal Simons MD Note: This is an individualized lifestyle goal for Mercy Ziegler: Please maintain a regular sleep schedule. This may help with some symptoms of depression. Consume a [id number] diet Lifestyle No Kajal Simons MD Note: This is an individualized lifestyle goal for eMrcy Zigeler: Please do not add additional salt to your food. Additional salt may lead to fluid retention and worsen your congestive heart failure. Keep immunizations current Lifestyle No Kajal Simons MD Note: This is an individualized lifestyle goal for Mercy Ziegler: Please be sure to keep up-to-date on recommended immunizations. For example, this would include a yearly influenza vaccine. Immunization status can be seen by looking at the Health Maintenance sections of your e[facility], Plan of Care, and any After Visit Summaries. Take all prescribed medications as Self-management Kajal Mistry MD directed Note: This is an individualized self-management goal for Mercy Ziegler: Please take all prescribed medications as directed. 1. Do not skip doses. If you cannot afford your medications, talk with your doctor. 2. Use a pill reminder system such as a pill box if needed. Your pharmacist can help you with this. 3. Contact your Pharmacy 5 days before your medication runs out. If you cannot take your medications for any reasons, talk with your doctor. 4. Please bring all of your medication bottles and inhalers (or a list of all your medications/inhalers) with you to every visit. Potential barriers to meeting all of your care plan goals will continue to be addressed on an ongoing basis. Check your weight daily Self-management Kajal Mistry MD Note: This is an individualized self-management goal for Mercy Ziegler: Please check your weight daily. Refer to the accompanying CHF treatment goal and call your doctor immediately for further instructions on how to respond to unexpected weight gain. documented as of this encounter Implants Implanted Type Area Special Delivery Carrier Device Shelf Model / Identifier Expiration Serial / Date Lot [place] Cup Left: Hip DEPUY 1217-01-054 / Implanted: Qty: 1 on 06/09/2010 at [facility] / [id number] [place] Altrx Liner Left: Hip DEPUY [id number] / Implanted: Qty: 1 on 06/09/2010 at [facility] / [id number] Hole Eliminator Left: Hip DEPUY 1246-03-000 / Implanted: Qty: 1 on 06/09/2010 at [facility] / [id number] [place] Femoral Stem Left: Hip DEPUY 1012-14-040 / Implanted: Qty: 1 on 06/09/2010 at [facility] / [id number] Metal On Metal Head Left: Hip DEPUY [id number] / Implanted: Qty: 1 on 06/09/2010 at [facility] / [id number] Aortic Magna [place] 21mm - [id number] Heart [employer] [id number] / Implanted: Qty: 1 on 12/15/2010 at [facility] [employer] / [id number] documented as of this encounter Procedures Procedure Name Priority Date/Time Associated Diagnosis Comments DIABETES FOOT EXAM Routine 01/29/2019 documented in this encounter Results DIABETES FOOT EXAM (01/29/2019) FOOT EXAM normal [facility] PO[facility] Performing Organization Address City/State/Zipcode Phone Number [facility] [address] [place] [id number] documented in this encounter Visit Diagnoses Diagnosis Cardiomyopathy, unspecified type (HCC) - Primary Type 2 diabetes mellitus without complication, without long-term current use of insulin (HCC) Iron deficiency anemia due to chronic blood loss Iron deficiency anemia secondary to blood loss (chronic) Acquired hypothyroidism Unspecified hypothyroidism Flu vaccine need Need for prophylactic vaccination and inoculation against influenza documented in this encounter Insurance Payer Benefit Plan / Subscriber ID Effective Dates Phone Address Type Group AETNA MEDICARE AETNA MEDICARE xxxxxxxx Effective for all [employer] ADVANTAGE ADVANTAGE dates documented as of this encounter Advance Directives Code Status Date Activated Date Inactivated Comments Full Code 12/09/2017 11:47 PM 12/12/2017 2:51 PM Does patient have decision making capacity? yes Order discussed with: Patient I discussed all options and patient/surrogate requested and agreed to: Full Code
[2019-02-10 11:48] LABS: ABS Basophils 0.1 10^3/ul (0-0.2); ABS Lymphocytes 0.6 10^3/ul (1.0-4.8); ABS Monocytes 1.3 10^3/ul (0-0.8); ABS Neutrophils 13.2 10^3/ul (1.5-7.7); Hematocrit 32 % (35-47); Hemoglobin 10.1 g/dL (12.0-16.0); Lymphocyte % 4.1 %; Mean Corpuscular HGB Conc 32 g/dL (31-36); Mean Corpuscular Hemoglobin 23 pg (27-31); Mean Corpuscular Volume 74 fL (80-97); Mean Platelet Volume 8.6 fL (7.4-10.4); Platelet Count 284 10^3/uL (150-450); Red Blood Count 4.34 10^6 /uL (3.70-4.87); Red Cell Distribution Width 21 % (10-15); White Blood Count 15.2 10^3/uL (3.5-10.8)
[2019-02-10 11:50] LABS: Albumin/Globulin Ratio 1.1 (1-3); BUN/Creatinine Ratio 23.4 (8-20); C Reactive Protein 40.04 mg/L (<8.01); Calcium 9.2 mg/dL (8.6-10.3); EGFR African American 13.2 (>60); EGFR Non-African American 10.9 (>60); Globulin 3.7 g/dL (2-4); Magnesium 1.4 mg/dL (1.9-2.7); Potassium 4.2 mmol/L (3.5-5.0); Total Bilirubin 0.8 mg/dL (0.2-1.0); Total Protein 7.7 g/dL (6.4-8.9)
[2019-02-10 11:51] LABS: Troponin I 0.01 ng/mL (<0.04)
[2019-02-10] MEDS ORDERED: Ondansetron INJ* 2 MG/ML VIAL IV ONE (12:16)
[2019-02-10] MEDS ORDERED: Magnesium Sulfate 1 GM IV* 1 GM/100 ML BAG IV ONE (12:20)
[2019-02-10] MEDS ORDERED: NS 0.9% 1000 ML** 2,000 ML IV ONE (12:48)
[2019-02-10] MEDS: oxyCODONE TAB* 5 MG TAB PO ONE ×2 (12:51→13:05)
[2019-02-10] MEDS ORDERED: Ondansetron INJ* 2 MG/ML VIAL IV PRN (13:19)
[2019-02-10] MEDS ORDERED: Piperacillin/Tazobac ADVAN(*) 3.375 GM in NS 0.9% 100 ML* 100 ML IVPB ONE (13:19)
[2019-02-10] MEDS ORDERED: Lactated Ringers 1000 ML Bag* 1,000 ML IV SCH ×2 (13:22→13:53)
[2019-02-10] MEDS ORDERED: Albuterol 2.5 MG/3 ML NEB.SOL* (0.083%) INH PRN (13:24)
[2019-02-10] MEDS ORDERED: Dextrose 50% VIAL 50 ml IV PUSH PRN (13:50)
[2019-02-10] MEDS ORDERED: Zosyn per Pharmacy* NOTE FOLLOW UP SCH (14:00)
[2019-02-10] MEDS: Acetaminophen TAB* 325 MG PO PRN (16:22)
[2019-02-10] MEDS: Insulin LISPRO* 1 UNITS UNIT SUBCUT SCH ×2 (16:35→23:34)
--- NOTE | 2019-02-10 17:25 | HP ---
CC: Dr. Simons * HISTORY AND PHYSICAL: DATE OF ADMISSION: 02/10/19 PRIMARY CARE DOCTOR: Dr. Simons. MY ATTENDING PHYSICIAN WHILE IN THE HOSPITAL: Dr. Tim Tena* (DICTATED BY MARYCRUZ ROSAS) CHIEF COMPLAINT: Diarrhea and vomiting x18 hours. HISTORY OF PRESENT ILLNESS: Ms. Ziegler is a 68-year-old female with complicated past medical history significant for history of bowel obstruction likely related to diverticular disease with a colostomy, large parastomal hernia , paroxysmal atrial fibrillation, heart failure, preserved ejection fraction, diabetes, coronary artery disease and COPD on 2 L oxygen chronically who presented to the emergency department after she was feeling generally well in her normal state of health when yesterday she ate what she describes nothing out of the ordinary, but was consisting of a sandwich and melon out of a container from the supermarket. She soon thereafter developed a subjective fever, just did not feel well and around 6 p.m. developed profuse vomiting and significantly increased output from her colostomy. She had to empty colostomy 6 times overnight and vomited numerous times. She did not have any blood in her stool or her emesis. She began to develop cough after vomiting for a significant period of time and had some shortness of breath and chest pain, but she feels the chest pain is related to coughing and not related to her heart. The patient for pain in her back had been taking oxycodone on and off overnight. The patient denies fevers, chills at this time and does feel very dizzy particularly sitting up. The patient's diarrhea started to subside. The patient has not vomited recently. The patient has been having pain on the left side of her abdomen, which she feels is superficial and was associated with bruising on the left side of her abdomen for the last several days, has not had any imaging of this patient and generally sounds has been doing very well with her chronic medical issues. The patient in the emergency department had hypotension with the blood pressure going down to a low of 54/40, which is currently improving with fluid bolus. The patient was found to have a creatinine of 4.06, up from her baseline of approximately 1.4. The patient found to be C. diff negative due to concern for hypotension in the setting of severe dehydration related to gastrointestinal problems, so we are asked to evaluate the patient for admission to the hospital. 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 PAST SURGICAL HISTORY: Colostomy, IVC filter placement, pacemaker, aortic valve replacement. MEDICATIONS: Medications per primary care doctor from 12/18/18: 1. Albuterol nebulizer 3 mL inhalation every 4 hours as needed for shortness of breath. 2. Albuterol inhaler 2 puffs inhalation every 4 hours as needed for her shortness of breath. 3. Alprazolam 2 puffs 0.25 mg 2 tabs by mouth 3 times daily as needed for anxiety. 4. Amiodarone 200 mg p.o. daily. 5. Atorvastatin 80 mg p.o. daily. 6. Vitamin D 1000 units p.o. daily. 7. Epinephrine 0.3 mg as needed for bee stings. 8. Fluticasone 2 puffs inhalation twice daily. 9. Glipizide 2.5 mg p.o. daily. 10. Levothyroxine 175 mcg p.o. daily. 11. Melatonin 3 mg p.o. nightly. 12. Metformin 500 mg p.o. b.i.d. with meals. 13. Metolazone 2.5 mg p.o. daily. 14. Metoprolol succinate 50 mg p.o. daily. 15. Mupirocin ointment 1 application topical daily to abdominal wound. 16. Omeprazole 40 mg p.o. daily. 17. Percocet 5/325 1 tab p.o. every 6 hours as needed for pain. 18. Pregabalin 50 mg p.o. daily. 19. Ramipril 2.5 mg p.o. daily. 20. Sertraline 200 mg p.o. daily. 21. Spironolactone 25 mg p.o. daily. 22. Tiotropium 1 inhalation daily. 23. Torsemide 40 mg p.o. daily. 24. Zetia 10 mg p.o. daily. ALLERGIES: BEE VENOM, SHELLFISH, IV CONTRAST MEDIA, CELEBREX. FAMILY HISTORY: The patient's mother in her 70s of heart disease. The patient's father in MVA. The patient's brother of an UT and son who in his 50s of UT. SOCIAL HISTORY: The patient quit smoking 4 years ago. The patient denies ever abusing alcohol or using illicit drugs. 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 The patient is not , has 5 children. The patient's surrogate decision maker is her daughter, Manuela Carr. REVIEW OF SYSTEMS: A 14-point review of systems were reviewed, is negative except as above in the HPI. PHYSICAL EXAMINATION GENERAL: The patient is a 68-year-old female, who appears stated age, sitting in bed in mild distress from pain. VITAL SIGNS: At the time of evaluation, temperature 97.0, pulse rate 60, respiratory rate 18, oxygen saturation 100% on 4 L, blood pressure 78/45. HEENT: Head: Normocephalic, atraumatic. Sclerae anicteric. No conjunctival injection. Nasal mucosa moist. Oral mucosa moist. No pharyngeal erythema, discharge, or exudate. NECK: Supple, nontender. No lymphadenopathy. No carotid bruit auscultated. No JVD. RESPIRATORY: Clear to auscultation bilaterally. No wheezes, rales or rhonchi. Good air exchange bilaterally. HEART: Regular rate and rhythm. No clicks, murmurs, gallops or rubs. Pulse is 2+ in the dorsalis pedis, posterior tibialis, and radial areas. ABDOMEN: Soft, tender to palpation on the left upper and lower quadrants stoma with pink viable tissue visible, large parastomal hernia. Bowel sounds present , hyperactive in all 4 quadrants. No hepatosplenomegaly. No abdominal bruits auscultated. GENITOURINARY: No suprapubic tenderness or CVA tenderness. SKIN: Clean, dry, intact. No rash. PSYCHIATRIC: Pleasant, cooperative, and somewhat somnolent. DIAGNOSTIC STUDIES/LAB DATA: White blood cell count 15.2, hemoglobin 10.1, platelet count 284,000. Sodium 130, potassium 4.2, chloride 94, carbon dioxide 20, anion gap 16, BUN 95, creatinine 4.06, glucose 165, lactic acid 1.7, magnesium 7.4, bilirubin 0.8, AST 19, ALT 15, alkaline phosphatase 86, troponin I 0.01, CRP 4.04, BNP 202, protein 7.7, albumin 4.0, globulin 3.7, amylase 143, lipase 95. Studies: Chest x-ray read as no acute cardiopulmonary disease. Electrocardiogram shows normal sinus rhythm, no ST segment elevation or depression, paced rhythm, no hypertrophy or enlargement, no significant abnormalities. ASSESSMENT/PLAN AND IMPRESSION: Ms. Ziegler is a 68-year-old female with complex past medical history significant for diverticulitis complicated by bowel obstruction and need for ostomy placement, heart failure with preserved ejection fraction status post aortic valve replacement, paroxysmal atrial fibrillation, coronary artery disease, diabetes who last night developed acute onset nausea, vomiting and diarrhea. The patient was brought into the emergency department and found to have acute kidney failure and severe hypotension. The patient admitted to the ICU for acute fluid resuscitation, possible need for vasopressor support and hemodynamic monitoring. 1. Nausea, vomiting, diarrhea, dehydration likely viral and/or toxin mediated. The patient had relatively acute onset nausea, vomiting, and diarrhea with some abdominal pain without significant component of abdominal pain after eating fruit from the grocery store, which may have been contaminated with something. The patient has an elevated white blood cell count. The patient is not tachycardic. The patient has severe hypotension. The patient's blood pressure is currently improving with fluid boluses, which would be continued for a total of 1 L after which time her fluid status will be reassessed. The patient has heart failure with preserved ejection fraction and history of flash pulmonary edema. The patient is currently very symptomatic from her hypotension. The patient has normal lactic acid, and it is unlikely this is related significantly to a septic process; however, the patient will be started on Zosyn to cover intra-abdominal as well as aspiration pneumonia related pathogens with aggressive fluid resuscitation. The patient will be monitored closely for worsening of her respiratory status possibly indicating fluid overload. The patient has stool culture pending, rotavirus antigen pending, the patient's C. Difficile is negative, stool lactoferrin is pending. The patient's diarrhea appears to be slowing down which is consistent with a process by its time frame. The patient will have a CT abdomen pelvis, which is pending at this time to assess for colitis and/or other process given her history of multiple abdominal surgeries, complex abdomen. 2. History of heart failure with preserved ejection fraction. The patient has a known history of flash pulmonary edema. The patient's fluid status will be monitored closely and with her large volume fluid resuscitation in the setting of hypotension, the patient should have daily weights. The patient's diuretics will be held at this time, though it should be likely resumed at discharge. 3. Acute renal failure. The patient has severe increase in her creatinine from a baseline of approximately 1.3 to 4.06. This is likely related entirely to prerenal process, though an FENa and FEurea shall be obtained to confirm this. The patient is on 3 different diuretics and MADELAINE inhibitor at home making her very predisposed to acute kidney injury related to dehydration. This will be monitored closely. The patient has no current metabolic abnormalities requiring dialysis. Nephrology may be consulted if the patient does not improve. 4. Coronary artery disease. Continue the patient's statin, hold patient's aspirin. The patient has a normal troponin and nonsignificant EKG. There is no current concern for acute coronary syndrome. 5. Paroxysmal atrial fibrillation. The patient is currently in normal sinus rhythm. The patient has a pacemaker, the patient is on amiodarone and metoprolol. Hold the patient's antihypertensives at this time, metoprolol should be resumed when able. Continue the patient's amiodarone starting tomorrow. The patient will be monitored on telemetry. 6. Diabetes mellitus type 2. Hold the patient's metformin and glipizide. The patient will have fingersticks while in the hospital. She will likely be able to resume her home regimen on discharge. 7. Chronic obstructive pulmonary disease . The patient is not in current exacerbation. The patient is not wheezing despite cough. The patient will be maintained on chronic inhalers, as needed inhalers and oxygen. The patient is currently on 4 L, her baseline is 2. She is saturating near 100 and this may be able to be tapered soon. 8. Depression. Continue sertraline. 9. DVT prophylaxis. The patient has a history of deep venous thrombosis, May- Thurner syndrome. The patient will be on heparin subcu while in the hospital. The patient is not on anticoagulation outpatient due to the atriovenous malformations in her bowel, which have been cauterized. 10. FEN. The patient will have a clear liquid diet and fluids as above. 11. Disposition. The patient will be admitted inpatient to the ICU. TIME SPENT: Approximately 60 minutes were spent on the admission, 30 of which was spent [id number] with the patient obtaining history and physical and discussing treatment plan. This plan was discussed with my attending, Dr. Tim Tena. and she is in agreement. MARYCRUZ ROSAS [id number]/[facility] #: [id number] SERENA
[2019-02-10] MEDS: Lactated Ringers 1000 ML Bag* 1,000 ML IV SCH (17:51)
[2019-02-10] MEDS ORDERED: Melatonin 3 MG TAB PO SCH (18:00)
[2019-02-10 18:08] LABS: Urine Appearance Clear; Urine Bilirubin Negative (Negative); Urine Blood Negative (Negative); Urine Color Straw; Urine Glucose Negative (Negative); Urine Ketones Negative (Negative); Urine Nitrite Negative (Negative); Urine Protein Negative (Negative); Urine Specific Gravity 1.008 (1.010-1.030); Urine Urobilinogen Negative (Negative)
[2019-02-10 18:25] LABS: Urine Creatinine Concentration 29.77 mg/dL
[2019-02-10] MEDS: oxyCODONE/Acetamin 5/325 MG* TAB PO PRN (20:25)
[2019-02-10] MEDS: Pregabalin CAP(*) 50 MG PO SCH (20:25)
[2019-02-10] MEDS: Heparin VIAL(*) 5000 UNITS/ML VIAL (FIVE THOUSAND) SUBCUT SCH (20:26)
[2019-02-10] MEDS: Atorvastatin* 80 MG TAB PO SCH (20:26)
[2019-02-10] MEDS: FLUTICASONE 110 MCG INH SCH (20:29)
[2019-02-10] MEDS: Melatonin 3 MG TAB PO SCH (20:30)
[2019-02-11] MEDS: ALPRAZolam TAB* 0.25 MG PO PRN (00:10)
[2019-02-11] MEDS: Acetaminophen TAB* 325 MG PO PRN ×2 (00:11→20:52)
[2019-02-11] MEDS: ZOSYN 3.375 GM Q12H per EXTENDED INFUSION IVPB SCH ×4 (01:25→13:57)
[2019-02-11] MEDS: Levothyroxine TAB* 175 MCG TAB PO SCH (05:54)
[2019-02-11 08:24] LABS: Hematocrit 29 % (35-47); Mean Corpuscular HGB Conc 31 g/dL (31-36); Mean Corpuscular Hemoglobin 23 pg (27-31); Mean Corpuscular Volume 74 fL (80-97); Red Blood Count 3.88 10^6 /uL (3.70-4.87); Red Cell Distribution Width 21 % (10-15); White Blood Count 9.9 10^3/uL (3.5-10.8)
[2019-02-11] MEDS ORDERED: Lactated Ringers 1000 ML Bag* 1,000 ML IV ONE (09:00)
[2019-02-11 09:09] LABS: Platelet Count 225 10^3/uL (150-450)
[2019-02-11 09:11] LABS: ABS Basophils 0.1 10^3/ul (0-0.2); ABS Eosinophils 0.1 10^3/ul (0-0.6); ABS Lymphocytes 0.8 10^3/ul (1.0-4.8); ABS Monocytes 1.6 10^3/ul (0-0.8); ABS Neutrophils 7.3 10^3/ul (1.5-7.7); Lymphocyte % 7.8 %; Nucleated Red Blood Cells % 0.1
[2019-02-11] MEDS: Amiodarone TAB* 200 MG PO SCH (09:19)
[2019-02-11] MEDS: Sertraline* 100 MG TAB PO SCH (09:19)
[2019-02-11] MEDS: Pantoprazole TAB * 40 MG TAB PO SCH (09:20)
[2019-02-11] MEDS: Heparin VIAL(*) 5000 UNITS/ML VIAL (FIVE THOUSAND) SUBCUT SCH ×2 (09:20→20:44)
[2019-02-11] MEDS: oxyCODONE/Acetamin 5/325 MG* TAB PO PRN ×2 (09:24→16:36)
[2019-02-11 09:37] LABS: Albumin 3.3 g/dL (3.2-5.2); Calcium 8.5 mg/dL (8.6-10.3); Magnesium 1.7 mg/dL (1.9-2.7); Potassium 4.2 mmol/L (3.5-5.0); Total Bilirubin 0.8 mg/dL (0.2-1.0)
[2019-02-11] MEDS ORDERED: Magnesium Sulfate 2 GM IV* 2 GM/50 ML BAG IVPB ONE (09:41)
[2019-02-11 09:43] LABS: BUN/Creatinine Ratio 27.4 (8-20); EGFR African American 17.8 (>60); EGFR Non-African American 14.7 (>60); Globulin 3.2 g/dL (2-4); Total Protein 6.5 g/dL (6.4-8.9)
[2019-02-11] MEDS: Insulin LISPRO* 1 UNITS UNIT SUBCUT SCH ×4 (09:48→20:44)
[2019-02-11] MEDS: Loperamide CAP* 2 MG PO PRN (09:51)
[2019-02-11] MEDS: FLUTICASONE 110 MCG INH SCH (10:07)
[2019-02-11] MEDS: SPIRIVA Respimat* (tiotropium) 2.5 mcg/inh Inhaler INH SCH (11:45)
--- NOTE | 2019-02-11 13:10 | PN ---
Subjective Date of Service: 02/11/19 Interval History: Patient is still feeling poorly. Patient feels dizzy on sitting up. Patient denies F/C, N/V, SOB, CP, N/V. Patient is still having watery output from her colostomy. Patient denies blood in her stool or presyncope. Patient has consistent pain in her back and on the left side of her abdomen. Family History: Unchanged from Admission Social History: Unchanged from Admission Past Medical History: Unchanged from Admission Objective Active Medications: Acetaminophen (Tylenol Tab*) 650 mg PO Q6H PRN PRN Reason: MILD PAIN or TEMP > 100.4 Last Admin: 02/11/19 00:11 Dose: 650 mg Albuterol (Ventolin 2.5 Mg/3 Ml Neb.Lorie*) 2.5 mg INH Q4H PRN PRN Reason: SOB/WHEEZING Albuterol (Ventolin Hfa Inhaler*) 2 puff INH Q4H PRN PRN Reason: SOB/WHEEZING Alprazolam (Xanax Tab*) 0.25 mg PO TID PRN PRN Reason: ANXIETY Last Admin: 02/11/19 00:10 Dose: 0.25 mg Amiodarone HCl (Cordarone Tab*) 200 mg PO DAILY [facility] Last Admin: 02/11/19 09:19 Dose: 200 mg Atorvastatin Calcium (Lipitor*) 80 mg PO BEDTIME [facility] Last Admin: 02/10/19 20:26 Dose: 80 mg Dextrose (Dextrose 50% Vial 50 Ml*) 25 ml IV PUSH .FOR FS < 60 - SS PRN PRN Reason: FS < 60 Fluticasone Propionate (Flovent Hfa 110 Mcg(Nf)) 2 puff INH BID [facility] Last Admin: 02/11/19 10:07 Dose: Not Given Heparin Sodium (Porcine) (Heparin Vial(*)) 5,000 units SUBCUT Q12HR [facility] Last Admin: 02/11/19 09:20 Dose: 5,000 units Piperacillin Sod/Tazobactam (Sod 3.375 gm/ Sodium Chloride) 100 mls @ 25 mls/ hr IVPB Q12H [facility] Last Admin: 02/11/19 01:25 Dose: 25 mls/hr Lactated Ringer's (Lactated Ringers 1000 Ml Bag*) 1,000 mls @ 75 mls/hr IV PER RATE [facility] Last Admin: 02/10/19 17:51 Dose: 75 mls/hr Insulin Human Lispro (Humalog*) 0 units SUBCUT ACHS [facility]; Protocol Last Admin: 02/11/19 09:48 Dose: Not Given Levothyroxine Sodium (Synthroid Tab*) 175 mcg PO 0600 [facility] Last Admin: 02/11/19 05:54 Dose: 175 mcg Loperamide HCl (Imodium Cap*) 2 mg PO .SEE DIRECTIONS PRN PRN Reason: DIARRHEA Last Admin: 02/11/19 09:51 Dose: 2 mg Melatonin (Melatonin) 3 mg PO BEDTIME [facility] Last Admin: 02/10/19 20:30 Dose: 3 mg Ondansetron HCl (Zofran Inj*) 4 mg IV Q6H PRN PRN Reason: NAUSEA Last Admin: 02/11/19 04:37 Dose: 4 mg Oxycodone/Acetaminophen (Percocet 5/325 Tab*) 1 tab PO Q6HR PRN PRN Reason: PAIN - MILD Last Admin: 02/11/19 09:24 Dose: 1 tab Pantoprazole Sodium (Protonix Tab*) 40 mg PO DAILY [facility] Last Admin: 02/11/19 09:20 Dose: 40 mg Pharmacy Consult (Zosyn Per Pharmacy*) 1 note FOLLOW UP .ZOSYN PER PHARMACY [facility] Pregabalin (Lyrica Cap(*)) 50 mg PO BEDTIME [facility] Last Admin: 02/10/19 20:25 Dose: 50 mg Sertraline HCl (Zoloft*) 200 mg PO DAILY [facility] Last Admin: 02/11/19 09:19 Dose: 200 mg Tiotropium [place] (Spiriva Respimat 2.5 Mcg) 2 puff INH DAILY [facility] Last Admin: 02/11/19 11:45 Dose: 2 puff Vital Signs - 8 hr 02/11/19 02/11/19 02/11/19 05:16 05:46 06:00 Temperature Pulse Rate 60 59 60 Respiratory 15 14 14 Rate Blood Pressure 94/55 90/54 87/52 (mmHg) O2 Sat by Pulse 99 100 100 Oximetry 02/11/19 02/11/19 02/11/19 06:15 06:30 06:45 Temperature Pulse Rate 61 60 60 Respiratory 14 16 16 Rate Blood Pressure 96/53 108/51 97/45 (mmHg) O2 Sat by Pulse 100 99 99 Oximetry 02/11/19 02/11/19 02/11/19 07:00 07:04 07:15 Temperature Pulse Rate 87 63 61 Respiratory 18 18 16 Rate Blood Pressure 95/59 83/50 (mmHg) O2 Sat by Pulse 93 98 97 Oximetry 02/11/19 02/11/19 02/11/19 07:31 07:46 07:59 Temperature Pulse Rate 66 64 75 Respiratory 22 17 27 Rate Blood Pressure 97/56 96/33 (mmHg) O2 Sat by Pulse 100 97 Oximetry 02/11/19 02/11/19 02/11/19 08:00 08:01 08:03 Temperature 98.9 F Pulse Rate 70 68 Respiratory 16 13 17 Rate Blood Pressure 69/55 71/49 (mmHg) O2 Sat by Pulse 92 98 Oximetry 02/11/19 02/11/19 02/11/19 08:15 08:18 08:30 Temperature Pulse Rate 60 60 57 Respiratory 18 18 15 Rate Blood Pressure 93/42 98/37 97/40 (mmHg) O2 Sat by Pulse 97 98 99 Oximetry 02/11/19 02/11/19 02/11/19 08:46 09:00 09:01 Temperature Pulse Rate 60 67 Respiratory 17 20 16 Rate Blood Pressure 89/55 (mmHg) O2 Sat by Pulse 100 100 Oximetry 02/11/19 02/11/19 02/11/19 09:02 09:15 09:24 Temperature Pulse Rate 62 69 Respiratory 16 17 16 Rate Blood Pressure 100/48 102/57 (mmHg) O2 Sat by Pulse 86 Oximetry 02/11/19 02/11/19 02/11/19 09:31 10:01 10:09 Temperature Pulse Rate 65 76 77 Respiratory 19 18 Rate Blood Pressure 108/47 80/60 (mmHg) O2 Sat by Pulse 96 100 93 Oximetry 02/11/19 02/11/19 02/11/19 10:15 10:24 10:31 Temperature Pulse Rate 71 71 63 Respiratory 17 18 17 Rate Blood Pressure 84/58 84/52 89/41 (mmHg) O2 Sat by Pulse 98 97 96 Oximetry 02/11/19 02/11/19 02/11/19 10:45 11:00 11:01 Temperature Pulse Rate 62 59 60 Respiratory 17 23 25 Rate Blood Pressure 96/44 86/42 (mmHg) O2 Sat by Pulse 98 98 98 Oximetry 02/11/19 02/11/19 02/11/19 11:15 11:26 11:40 Temperature 98.9 F Pulse Rate 60 66 Respiratory 27 17 Rate Blood Pressure 81/44 106/57 (mmHg) O2 Sat by Pulse 96 95 Oximetry 02/11/19 02/11/19 02/11/19 12:00 12:15 12:30 Temperature Pulse Rate 61 60 60 Respiratory 18 16 14 Rate Blood Pressure 105/52 104/55 103/50 (mmHg) O2 Sat by Pulse 93 95 95 Oximetry 02/11/19 02/11/19 12:45 12:48 Temperature Pulse Rate 60 Respiratory 17 20 Rate Blood Pressure 106/56 (mmHg) O2 Sat by Pulse 95 Oximetry Oxygen Devices in Use Now: Nasal Cannula Appearance: Patient is a 68yo female who appears stated age and is sitting in the bed in NAD. Eyes: No Scleral Icterus, PERRLA Ears/Nose/Mouth/Throat: NL Teeth, Lips, Gums, Clear Oropharnyx, Mucous Membranes Moist Neck: NL Appearance and Movements; NL JVP, Trachea Midline Respiratory: Symmetrical Chest Expansion and Respiratory Effort, Clear to Auscultation Cardiovascular: NL Sounds; No Murmurs; No JVD, RRR, No Edema Abdominal: - - Colostomy, large parastomal hernia, bowel sounds present and normoactive throughout. Lymphatic: No Cervical Adenopathy Extremities: No Edema, No Clubbing, Cyanosis Skin: No Nodules or Sclerosis, - - Bruising on Left side of abdomen. Neurological: Alert and Oriented x 3, NL Sensation, NL Muscle Strength and Tone , - - CN II-XII intact. Result Diagrams: 02/11/19 07:45 02/11/19 07:45 Microbiology and Other Data: Microbiology 02/10/19 17:54 Stool Gross Appearance - Final Stool Rotavirus Antigen - Final Negative Rotavirus 02/10/19 15:50 Nasal Screen MRSA (PCR) - Final Nasal Mrsa Not Detected 02/10/19 12:05 Stool Gross Appearance - Final Stool C. difficile DNA Amplification - Final 027 Presumptive NEGATIVE Toxigenic C.diff NEGATIVE Stool Lactoferrin - Final Stool Occult Blood ([place]) - Final Assess/Plan/Problems-Billing Assessment: Patient is a 68yo female with a PMH for HFpEF, COPD, Colostomy, CKD, AFib S/P pacermaker, DVT, here with profuse diarrhea and dehydration, likely due to toxic or viral process who was initially very hypotensive and is responding to fluids and supportive care. - Patient Problems (1) Gastroenteritis Current Visit: Yes Status: Acute Code(s): K52.9 - NONINFECTIVE GASTROENTERITIS AND COLITIS, UNSPECIFIED SNOMED Code(s): 16846122 Comment: - Likely due to Viral or Toxic process - Giving antibiotics due to high risk nature and hypotension - Stool culture pending. C. Diff Negative. Rotavirus Pending - Persistent diarrhea, give imodium, continue fluids - Initially very hypovolemic, improving with fluids. (2) Diastolic CHF Current Visit: No Status: Chronic Code(s): I50.30 - UNSPECIFIED DIASTOLIC ( CONGESTIVE) HEART FAILURE SNOMED Code(s): 121424215 Comment: - Currently hypovolemic. Nearing Euvolemia - Home diuretics held (3) Acute renal failure Current Visit: No Status: Acute Comment: - Initial Cret 4 - Improving with fluids - Prerenal. - No electrolyte abnormalities requiring intervention (4) Atrial fibrillation Current Visit: No Status: Acute Code(s): I48.91 - UNSPECIFIED ATRIAL FIBRILLATION SNOMED Code(s): 55336169 Comment: - Paced, Continue Amio (5) COPD (chronic obstructive pulmonary disease) Current Visit: No Status: Acute Code(s): J44.9 - CHRONIC OBSTRUCTIVE PULMONARY DISEASE, UNSPECIFIED SNOMED Code(s): 79831753 Comment: - Stable and without signs of exacerbation. - Continue current inhaler regimen (spiriva, mometazone, albuterol). - Uses O2 2L at home 24 hrs. (6) History of coronary artery disease Current Visit: No Status: Chronic Code(s): Z86.79 - PERSONAL HISTORY OF OTHER DISEASES OF THE CIRCULATORY SYSTEM SNOMED Code(s): 859562923 Comment: - No signs of ACS - Continue secondary prevention (7) Hypothyroidism (acquired) Current Visit: No Status: Chronic Code(s): E03.9 - HYPOTHYROIDISM, UNSPECIFIED SNOMED Code(s): 022511307 Comment: - Continue synthroid 175mcg daily. (8) S/P aortic valve replacement with bioprosthetic valve Current Visit: No Status: Chronic Priority: Low Code(s): Z95.4 - PRESENCE OF OTHER HEART-VALVE REPLACEMENT SNOMED Code(s): 5142640968060 Comment: - Porcine valve noted with stable function on ECHO 08/24/18 - No murmur. (9) DVT prophylaxis Current Visit: No Status: Acute Code(s): RRV8115 - SNOMED Code(s): 957911182 Comment: - Heparin SubQ (10) Full code status Current Visit: No Status: Acute Code(s): Z78.9 - OTHER SPECIFIED HEALTH STATUS SNOMED Code(s): 217847914 Status and Disposition: Inpatient, likely downgrade to telemetry later today.
[2019-02-11] MEDS: Mometasone 220 MCG MDI INH SCH (19:29)
[2019-02-11] MEDS: Melatonin 3 MG TAB PO SCH (20:45)
[2019-02-11] MEDS: Atorvastatin* 80 MG TAB PO SCH (20:45)
[2019-02-11] MEDS: Pregabalin CAP(*) 50 MG PO SCH (20:45)
[2019-02-11] MEDS: Lactated Ringers 1000 ML Bag* 1,000 ML IV SCH (22:28)
[2019-02-12] MEDS: oxyCODONE/Acetamin 5/325 MG* TAB PO PRN ×2 (01:45→09:48)
[2019-02-12] MEDS: ZOSYN 3.375 GM Q12H per EXTENDED INFUSION IVPB SCH ×2 (01:45)
[2019-02-12] MEDS: Levothyroxine TAB* 175 MCG TAB PO SCH (05:17)
[2019-02-12 06:08] LABS: ABS Eosinophils 0.2 10^3/ul (0-0.6); ABS Lymphocytes 0.9 10^3/ul (1.0-4.8); Eosinophil % 2.5 %; Hematocrit 27 % (35-47); Hemoglobin 8.6 g/dL (12.0-16.0); Lymphocyte % 10.2 %; Mean Corpuscular HGB Conc 32 g/dL (31-36); Mean Corpuscular Hemoglobin 24 pg (27-31); Mean Corpuscular Volume 75 fL (80-97); Platelet Count 216 10^3/uL (150-450); Red Blood Count 3.63 10^6 /uL (3.70-4.87); Red Cell Distribution Width 21 % (10-15); White Blood Count 9.2 10^3/uL (3.5-10.8)
[2019-02-12 06:32] LABS: Calcium 8.5 mg/dL (8.6-10.3); EGFR Non-African American 24.8 (>60); Potassium 3.9 mmol/L (3.5-5.0)
[2019-02-12] MEDS: Insulin LISPRO* 1 UNITS UNIT SUBCUT SCH ×4 (09:38→20:38)
[2019-02-12] MEDS: Mupirocin 2% OINT* TUBE TOPICAL SCH ×2 (09:45→20:38)
[2019-02-12] MEDS: Heparin VIAL(*) 5000 UNITS/ML VIAL (FIVE THOUSAND) SUBCUT SCH ×2 (09:46→20:37)
[2019-02-12] MEDS: Pantoprazole TAB * 40 MG TAB PO SCH (09:48)
[2019-02-12] MEDS: Sertraline* 100 MG TAB PO SCH (09:48)
[2019-02-12] MEDS: Amiodarone TAB* 200 MG PO SCH (09:49)
--- NOTE | 2019-02-12 10:01 | PN ---
Subjective Date of Service: 02/12/19 Interval History: Pt c/o crampy abd pain worst at LLQ x 4 days. Nausea and vomiting resolved. Empties her colostomy bag 6-7x/day (usually its 3-4/day Family History: Unchanged from Admission Social History: Unchanged from Admission Past Medical History: Unchanged from Admission Objective Active Medications: Acetaminophen (Tylenol Tab*) 650 mg PO Q6H PRN PRN Reason: MILD PAIN or TEMP > 100.4 Last Admin: 02/11/19 20:52 Dose: 650 mg Albuterol (Ventolin 2.5 Mg/3 Ml Neb.Lorie*) 2.5 mg INH Q4H PRN PRN Reason: SOB/WHEEZING Albuterol (Ventolin Hfa Inhaler*) 2 puff INH Q4H PRN PRN Reason: SOB/WHEEZING Alprazolam (Xanax Tab*) 0.25 mg PO TID PRN PRN Reason: ANXIETY Last Admin: 02/11/19 00:10 Dose: 0.25 mg Amiodarone HCl (Cordarone Tab*) 200 mg PO DAILY [facility] Last Admin: 02/12/19 09:49 Dose: 200 mg Atorvastatin Calcium (Lipitor*) 80 mg PO BEDTIME [facility] Last Admin: 02/11/19 20:45 Dose: 80 mg Dextrose (Dextrose 50% Vial 50 Ml*) 25 ml IV PUSH .FOR FS < 60 - SS PRN PRN Reason: FS < 60 Heparin Sodium (Porcine) (Heparin Vial(*)) 5,000 units SUBCUT Q12HR [facility] Last Admin: 02/12/19 09:46 Dose: 5,000 units Piperacillin Sod/Tazobactam (Sod 3.375 gm/ Sodium Chloride) 100 mls @ 25 mls/ hr IVPB Q12H [facility] Last Admin: 02/12/19 01:45 Dose: 25 mls/hr Lactated Ringer's (Lactated Ringers 1000 Ml Bag*) 1,000 mls @ 75 mls/hr IV PER RATE [facility] Last Admin: 02/11/19 22:28 Dose: 75 mls/hr Insulin Human Lispro (Humalog*) 0 units SUBCUT ACHS [facility]; Protocol Last Admin: 02/12/19 09:38 Dose: Not Given Levothyroxine Sodium (Synthroid Tab*) 175 mcg PO 0600 [facility] Last Admin: 02/12/19 05:17 Dose: 175 mcg Loperamide HCl (Imodium Cap*) 2 mg PO .SEE DIRECTIONS PRN PRN Reason: DIARRHEA Last Admin: 02/11/19 09:51 Dose: 2 mg Melatonin (Melatonin) 3 mg PO BEDTIME [facility] Last Admin: 02/11/19 20:45 Dose: 3 mg Mometasone Furoate (Asmanex 220 Mcg Mdi *) 2 puff INH QPM [facility] Last Admin: 02/11/19 19:29 Dose: 2 puff Mupirocin (Bactroban 2 % Oint*) 1 applic TOPICAL BID [facility] Last Admin: 02/12/19 09:45 Dose: 1 applic Ondansetron HCl (Zofran Inj*) 4 mg IV Q6H PRN PRN Reason: NAUSEA Last Admin: 02/11/19 04:37 Dose: 4 mg Oxycodone/Acetaminophen (Percocet 5/325 Tab*) 1 tab PO Q6HR PRN PRN Reason: PAIN - MILD Last Admin: 02/12/19 09:48 Dose: 1 tab Pantoprazole Sodium (Protonix Tab*) 40 mg PO DAILY [facility] Last Admin: 02/12/19 09:48 Dose: 40 mg Pharmacy Consult (Zosyn Per Pharmacy*) 1 note FOLLOW UP .ZOSYN PER PHARMACY [facility] Pregabalin (Lyrica Cap(*)) 50 mg PO BEDTIME [facility] Last Admin: 02/11/19 20:45 Dose: 50 mg Sertraline HCl (Zoloft*) 200 mg PO DAILY [facility] Last Admin: 02/12/19 09:48 Dose: 200 mg Simethicone (Mylicon Tab*) 80 mg PO AC [facility] Tiotropium [place] (Spiriva Respimat 2.5 Mcg) 2 puff INH DAILY [facility] Last Admin: 02/11/19 11:45 Dose: 2 puff Vital Signs - 8 hr 02/12/19 02/12/19 02/12/19 03:33 03:45 07:29 Temperature 98.9 F 97.3 F Pulse Rate 59 59 Respiratory 18 18 16 Rate Blood Pressure 101/60 120/70 (mmHg) O2 Sat by Pulse 100 100 Oximetry 02/12/19 09:48 Temperature Pulse Rate Respiratory 20 Rate Blood Pressure (mmHg) O2 Sat by Pulse Oximetry Oxygen Devices in Use Now: None, Nasal Cannula Appearance: 68 yo F in nAD, AAOx3 Eyes: No Scleral Icterus, PERRLA Ears/Nose/Mouth/Throat: NL Teeth, Lips, Gums, Mucous Membranes Moist Neck: NL Appearance and Movements; NL JVP, Trachea Midline Respiratory: Symmetrical Chest Expansion and Respiratory Effort, Clear to Auscultation Cardiovascular: NL Sounds; No Murmurs; No JVD, RRR Abdominal: - - distended parastomal hernia noted filled with gas, tender in LLQ , BS+, no rebound, no guarding Lymphatic: No Cervical Adenopathy Extremities: No Edema Skin: No Rash or Ulcers, No Nodules or Sclerosis Neurological: Alert and Oriented x 3, NL Muscle Strength and Tone Result Diagrams: 02/12/19 05:52 02/12/19 05:52 Microbiology and Other Data: Microbiology 02/10/19 17:54 Stool Gross Appearance - Final Stool Rotavirus Antigen - Final Negative Rotavirus 02/10/19 15:50 Nasal Screen MRSA (PCR) - Final Nasal Mrsa Not Detected 02/10/19 12:05 Stool Gross Appearance - Final Stool C. 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 - Patient Problems (1) Gastroenteritis Comment: - Likely due to Viral or Toxic process - will d/c antibiotics -start simethicone for gas pains - Stool culture pending. C. Diff Negative. - Persistent diarrhea, give imodium, continue fluids, start probiotics - Initially very hypovolemic, improving with fluids. (2) Acute renal failure Comment: - Initial Creat 4 - Improving with fluids - Prerenal. - No electrolyte abnormalities requiring intervention (3) Atrial fibrillation Comment: - Paced, Continue Amio -due to h/o recurrent GI bleeding, now off anticoagulation (4) COPD (chronic obstructive pulmonary disease) Comment: - Stable and without signs of exacerbation. - Continue current inhaler regimen (spiriva, mometazone, albuterol). - Uses O2 2L at home 24 hrs. (5) COPD (chronic obstructive pulmonary disease) Comment: stable. Continue home meds (6) DM2 (diabetes mellitus, type 2) Comment: glipizide/metformin held, cont SSI (7) Diastolic CHF Comment: - Currently hypovolemic. Nearing Euvolemia - Home diuretics held (8) HTN (hypertension) Comment: normotensive, holding ramipril/aldactone/torsemide due to acute renal failure (9) Hypothyroidism (acquired) Comment: - Continue synthroid (10) S/P aortic valve replacement with bioprosthetic valve Comment: - Porcine valve noted with stable function on ECHO 08/24/18 - No murmur. (11) Anemia Comment: likely due to hemodilution -pt received >4000 ml of IVF -no evidence of melena, or blood in stoma (12) DVT prophylaxis Comment: - SQ heparin. Status and Disposition: Inpatient
[2019-02-12] MEDS: Simethicone TAB* 80 MG TAB.CHEW PO SCH ×2 (11:56→17:29)
[2019-02-12] MEDS: Lactobacillus Acidophilus* 1 TAB PO SCH ×2 (11:56→20:37)
[2019-02-12] MEDS: SPIRIVA Respimat* (tiotropium) 2.5 mcg/inh Inhaler INH SCH (12:26)
[2019-02-12] MEDS: Lactated Ringers 1000 ML Bag* 1,000 ML IV SCH (17:34)
[2019-02-12] MEDS: Mometasone 220 MCG MDI INH SCH (19:19)
[2019-02-12] MEDS: Melatonin 3 MG TAB PO SCH (20:37)
[2019-02-12] MEDS: Pregabalin CAP(*) 50 MG PO SCH (20:37)
[2019-02-12] MEDS: Atorvastatin* 80 MG TAB PO SCH (20:38)
[2019-02-12] MEDS: Loperamide CAP* 2 MG PO PRN (23:35)
[2019-02-12] MEDS ORDERED: Lactated Ringers 1000 ML Bag* 1,000 ML IV SCH (23:45)
[2019-02-13] MEDS: oxyCODONE/Acetamin 5/325 MG* TAB PO PRN ×3 (00:03→17:41)
[2019-02-13] MEDS: Levothyroxine TAB* 175 MCG TAB PO SCH (05:08)
[2019-02-13] MEDS: Albuterol HFA INHALER* 8 gm MDI INH PRN (05:57)
[2019-02-13 07:56] LABS: ABS Basophils 0.1 10^3/ul (0-0.2); ABS Eosinophils 0.2 10^3/ul (0-0.6); ABS Lymphocytes 1.1 10^3/ul (1.0-4.8); ABS Monocytes 0.9 10^3/ul (0-0.8); ABS Neutrophils 5.9 10^3/ul (1.5-7.7); Hematocrit 25 % (35-47); Hemoglobin 7.8 g/dL (12.0-16.0); Lymphocyte % 13.2 %; Mean Corpuscular HGB Conc 31 g/dL (31-36); Mean Corpuscular Hemoglobin 24 pg (27-31); Mean Corpuscular Volume 76 fL (80-97); Mean Platelet Volume 8.2 fL (7.4-10.4); Nucleated Red Blood Cells % 0.1; Platelet Count 188 10^3/uL (150-450); Red Blood Count 3.28 10^6 /uL (3.70-4.87); Red Cell Distribution Width 22 % (10-15)
[2019-02-13 08:16] LABS: BUN/Creatinine Ratio 26.6 (8-20); Calcium 8.2 mg/dL (8.6-10.3); Potassium 4.4 mmol/L (3.5-5.0)
[2019-02-13] MEDS: Insulin LISPRO* 1 UNITS UNIT SUBCUT SCH ×4 (08:45→21:03)
[2019-02-13] MEDS: Simethicone TAB* 80 MG TAB.CHEW PO SCH ×3 (09:11→17:41)
[2019-02-13] MEDS: Lactobacillus Acidophilus* 1 TAB PO SCH ×2 (09:12→21:02)
[2019-02-13] MEDS: Heparin VIAL(*) 5000 UNITS/ML VIAL (FIVE THOUSAND) SUBCUT SCH ×2 (09:13→21:03)
[2019-02-13] MEDS: Amiodarone TAB* 200 MG PO SCH (09:13)
[2019-02-13] MEDS: Sertraline* 100 MG TAB PO SCH (09:13)
[2019-02-13] MEDS: Mupirocin 2% OINT* TUBE TOPICAL SCH ×2 (09:14→21:04)
[2019-02-13] MEDS: Pantoprazole TAB * 40 MG TAB PO SCH (09:14)
[2019-02-13] MEDS: Lactated Ringers 1000 ML Bag* 1,000 ML IV SCH ×2 (09:24→22:49)
[2019-02-13] MEDS: Loperamide CAP* 2 MG PO PRN ×2 (09:24→17:41)
--- NOTE | 2019-02-13 10:19 | PN ---
Subjective Date of Service: 02/13/19 Interval History: Pt was dizzy when standing up last night, with SBP in 90, she was treated with a bolus of IVF. This AM had SOB when laying down, now resolved. she had not been filling up colostomy bags as much as yesterday Still c/o mild abd cramping-much improved Family History: Unchanged from Admission Social History: Unchanged from Admission Past Medical History: Unchanged from Admission Objective Active Medications: Acetaminophen (Tylenol Tab*) 650 mg PO Q6H PRN PRN Reason: MILD PAIN or TEMP > 100.4 Last Admin: 02/11/19 20:52 Dose: 650 mg Albuterol (Ventolin 2.5 Mg/3 Ml Neb.Lorie*) 2.5 mg INH Q4H PRN PRN Reason: SOB/WHEEZING Albuterol (Ventolin Hfa Inhaler*) 2 puff INH Q4H PRN PRN Reason: SOB/WHEEZING Last Admin: 02/13/19 05:57 Dose: 2 puff Alprazolam (Xanax Tab*) 0.25 mg PO TID PRN PRN Reason: ANXIETY Last Admin: 02/11/19 00:10 Dose: 0.25 mg Amiodarone HCl (Cordarone Tab*) 200 mg PO DAILY [facility] Last Admin: 02/13/19 09:13 Dose: 200 mg Atorvastatin Calcium (Lipitor*) 80 mg PO BEDTIME [facility] Last Admin: 02/12/19 20:38 Dose: 80 mg Dextrose (Dextrose 50% Vial 50 Ml*) 25 ml IV PUSH .FOR FS < 60 - SS PRN PRN Reason: FS < 60 Heparin Sodium (Porcine) (Heparin Vial(*)) 5,000 units SUBCUT Q12HR [facility] Last Admin: 02/13/19 09:13 Dose: 5,000 units Lactated Ringer's (Lactated Ringers 1000 Ml Bag*) 1,000 mls @ 75 mls/hr IV PER RATE [facility] Last Admin: 02/13/19 09:24 Dose: 75 mls/hr Insulin Human Lispro (Humalog*) 0 units SUBCUT ACHS [facility]; Protocol Last Admin: 02/13/19 08:45 Dose: Not Given Lactobacillus Rhamnosus (Lactobacillus Acidophilus*) 1 tab PO BID [facility] Last Admin: 02/13/19 09:12 Dose: 1 tab Levothyroxine Sodium (Synthroid Tab*) 175 mcg PO 0600 [facility] Last Admin: 02/13/19 05:08 Dose: 175 mcg Loperamide HCl (Imodium Cap*) 2 mg PO .SEE DIRECTIONS PRN PRN Reason: DIARRHEA Last Admin: 02/13/19 09:24 Dose: 2 mg Melatonin (Melatonin) 3 mg PO BEDTIME [facility] Last Admin: 02/12/19 20:37 Dose: 3 mg Mometasone Furoate (Asmanex 220 Mcg Mdi *) 2 puff INH QPM [facility] Last Admin: 02/12/19 19:19 Dose: 2 puff Mupirocin (Bactroban 2 % Oint*) 1 applic TOPICAL BID [facility] Last Admin: 02/13/19 09:14 Dose: 1 applic Ondansetron HCl (Zofran Inj*) 4 mg IV Q6H PRN PRN Reason: NAUSEA Last Admin: 02/11/19 04:37 Dose: 4 mg Oxycodone/Acetaminophen (Percocet 5/325 Tab*) 1 tab PO Q6HR PRN PRN Reason: PAIN - MILD Last Admin: 02/13/19 09:24 Dose: 1 tab Pantoprazole Sodium (Protonix Tab*) 40 mg PO DAILY [facility] Last Admin: 02/13/19 09:14 Dose: 40 mg Pregabalin (Lyrica Cap(*)) 50 mg PO BEDTIME [facility] Last Admin: 02/12/19 20:37 Dose: 50 mg Sertraline HCl (Zoloft*) 200 mg PO DAILY [facility] Last Admin: 02/13/19 09:13 Dose: 200 mg Simethicone (Mylicon Tab*) 80 mg PO AC [facility] Last Admin: 02/13/19 09:11 Dose: 80 mg Tiotropium [place] (Spiriva Respimat 2.5 Mcg) 2 puff INH DAILY [facility] Last Admin: 02/12/19 12:26 Dose: 2 puff Vital Signs - 8 hr 02/13/19 02/13/19 02/13/19 03:04 05:59 09:24 Temperature 97.6 F Pulse Rate 60 60 Respiratory 16 24 22 Rate Blood Pressure 99/51 (mmHg) O2 Sat by Pulse 96 98 Oximetry Oxygen Devices in Use Now: Nasal Cannula Appearance: 68 yo F in nAD, aAOx3 Eyes: No Scleral Icterus, PERRLA Ears/Nose/Mouth/Throat: NL Teeth, Lips, Gums, Mucous Membranes Moist Neck: NL Appearance and Movements; NL JVP, Trachea Midline Respiratory: Symmetrical Chest Expansion and Respiratory Effort, Clear to Auscultation Cardiovascular: NL Sounds; No Murmurs; No JVD, RRR Abdominal: - - distended-very, soft, with minimal tenderness in LLQ, in the area of parastomal hernia. colostomy bag filled with liquid stool Lymphatic: No Cervical Adenopathy Extremities: No Edema, - Skin: No Rash or Ulcers, No Nodules or Sclerosis Neurological: Alert and Oriented x 3, NL Muscle Strength and Tone Result Diagrams: 02/13/19 07:23 02/13/19 07:23 Microbiology and Other Data: Microbiology 02/10/19 17:54 Stool Gross Appearance - Final Stool Rotavirus Antigen - Final Negative Rotavirus 02/10/19 15:50 Nasal Screen MRSA (PCR) - Final Nasal Mrsa Not Detected 02/10/19 12:05 Stool Gross Appearance - Final Stool C. 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 - Patient Problems (1) Gastroenteritis Comment: - Likely due to Viral or Toxic process - off antibiotics -stool output has lessen - cont simethicone for gas pains - Stool culture pending. C. Diff Negative. Rotavirus, shiga toxin neg - cont imodium prn, probiotics - Initially in hypovolemic shock, got a bolus overnight.will stop IVF today (2) Acute renal failure Comment: - Initial Creat 4 - Improving with fluids - Prerenal. - No electrolyte abnormalities requiring intervention (3) Atrial fibrillation Comment: - Paced, Continue Amio -due to h/o recurrent GI bleeding, now off anticoagulation (4) COPD (chronic obstructive pulmonary disease) Comment: - Stable and without signs of exacerbation. - Continue current inhaler regimen (spiriva, mometazone, albuterol). - Uses O2 2L at home 24 hrs. (5) COPD (chronic obstructive pulmonary disease) Comment: stable. Continue home meds (6) DM2 (diabetes mellitus, type 2) Comment: glipizide/metformin held, cont SSI (7) Diastolic CHF Comment: - Currently hypovolemic. Nearing Euvolemia - Home diuretics held (8) HTN (hypertension) Comment: normotensive, holding ramipril/aldactone/torsemide due to acute renal failure (9) Hypothyroidism (acquired) Comment: - Continue synthroid (10) S/P aortic valve replacement with bioprosthetic valve Comment: - Porcine valve noted with stable function on ECHO 08/24/18 - No murmur. (11) Anemia Comment: likely due to hemodilution -pt received >4000 ml of IVF -no evidence of melena, or blood in stoma (12) DVT prophylaxis Comment: - SQ heparin. Status and Disposition: Inpatient
[2019-02-13] MEDS: SPIRIVA Respimat* (tiotropium) 2.5 mcg/inh Inhaler INH SCH (14:45)
[2019-02-13] MEDS: Atorvastatin* 80 MG TAB PO SCH (21:02)
[2019-02-13] MEDS: Pregabalin CAP(*) 50 MG PO SCH (21:02)
[2019-02-13] MEDS: Melatonin 3 MG TAB PO SCH (21:02)
[2019-02-14] MEDS: Albuterol HFA INHALER* 8 gm MDI INH PRN ×2 (03:42→11:01)
[2019-02-14] MEDS: Levothyroxine TAB* 175 MCG TAB PO SCH (06:15)
[2019-02-14] MEDS: Insulin LISPRO* 1 UNITS UNIT SUBCUT SCH ×4 (07:59→22:55)
[2019-02-14] MEDS: Mometasone 220 MCG MDI INH SCH ×2 (08:00→20:44)
[2019-02-14] MEDS: Simethicone TAB* 80 MG TAB.CHEW PO SCH ×3 (08:34→17:20)
[2019-02-14] MEDS: Pantoprazole TAB * 40 MG TAB PO SCH (09:54)
[2019-02-14] MEDS: Lactobacillus Acidophilus* 1 TAB PO SCH ×2 (09:54→20:18)
[2019-02-14] MEDS: Sertraline* 100 MG TAB PO SCH (09:54)
[2019-02-14] MEDS: Amiodarone TAB* 200 MG PO SCH (09:54)
[2019-02-14] MEDS: Heparin VIAL(*) 5000 UNITS/ML VIAL (FIVE THOUSAND) SUBCUT SCH (09:55)
[2019-02-14] MEDS: SPIRIVA Respimat* (tiotropium) 2.5 mcg/inh Inhaler INH SCH (11:01)
[2019-02-14] MEDS: Mupirocin 2% OINT* TUBE TOPICAL SCH ×2 (11:12→20:34)
[2019-02-14 11:56] LABS: Hematocrit 24 % (35-47); Hemoglobin 7.7 g/dL (12.0-16.0); Mean Corpuscular HGB Conc 32 g/dL (31-36); Mean Corpuscular Hemoglobin 24 pg (27-31); Mean Corpuscular Volume 75 fL (80-97); Mean Platelet Volume 8.4 fL (7.4-10.4); Platelet Count 192 10^3/uL (150-450); Red Blood Count 3.22 10^6 /uL (3.70-4.87); Red Cell Distribution Width 22 % (10-15); White Blood Count 7.9 10^3/uL (3.5-10.8)
[2019-02-14] MEDS: Lactated Ringers 1000 ML Bag* 1,000 ML IV SCH (12:14)
[2019-02-14 12:20] LABS: BUN/Creatinine Ratio 18.2 (8-20); Calcium 8.1 mg/dL (8.6-10.3); EGFR African American 67.5 (>60); EGFR Non-African American 55.8 (>60); Potassium 4.1 mmol/L (3.5-5.0)
[2019-02-14] MEDS ORDERED: Furosemide IV* 10 MG/ML VIAL (40 MG) IV ONE (12:36)
[2019-02-14 12:41] LABS: ABS Basophils 0.1 10^3/ul (0-0.2); ABS Eosinophils 0.1 10^3/ul (0-0.6); ABS Lymphocytes 1.1 10^3/ul (1.0-4.8); ABS Monocytes 1.2 10^3/ul (0-0.8); ABS Neutrophils 5.5 10^3/ul (1.5-7.7); Eosinophil % 1.5 %; Lymphocyte % 13.6 %; Nucleated Red Blood Cells % 0.1
--- NOTE | 2019-02-14 12:42 | PN ---
Subjective Date of Service: 02/14/19 Interval History: pt still feels SOB, also noted PND. Abd cramping "almost resolved" apart for an occasional pain in LLQ. Stoma output is back top normal. No melena or blood in stoma bag noted. Pt is aware of h/o AVM's and that she has had occasional bleeding from stoma that "nothing can be done about because my heart is too weak". Family History: Unchanged from Admission Social History: Unchanged from Admission Past Medical History: Unchanged from Admission Objective Active Medications: Acetaminophen (Tylenol Tab*) 650 mg PO Q6H PRN PRN Reason: MILD PAIN or TEMP > 100.4 Last Admin: 02/11/19 20:52 Dose: 650 mg Albuterol (Ventolin 2.5 Mg/3 Ml Neb.Lorie*) 2.5 mg INH Q4H PRN PRN Reason: SOB/WHEEZING Albuterol (Ventolin Hfa Inhaler*) 2 puff INH Q4H PRN PRN Reason: SOB/WHEEZING Last Admin: 02/14/19 11:01 Dose: 2 puff Alprazolam (Xanax Tab*) 0.25 mg PO TID PRN PRN Reason: ANXIETY Last Admin: 02/11/19 00:10 Dose: 0.25 mg Amiodarone HCl (Cordarone Tab*) 200 mg PO DAILY [facility] Last Admin: 02/14/19 09:54 Dose: 200 mg Atorvastatin Calcium (Lipitor*) 80 mg PO BEDTIME [facility] Last Admin: 02/13/19 21:02 Dose: 80 mg Dextrose (Dextrose 50% Vial 50 Ml*) 25 ml IV PUSH .FOR FS < 60 - SS PRN PRN Reason: FS < 60 Insulin Human Lispro (Humalog*) 0 units SUBCUT [facility]; Protocol Last Admin: 02/14/19 07:59 Dose: Not Given Lactobacillus Rhamnosus (Lactobacillus Acidophilus*) 1 tab PO BID [facility] Last Admin: 02/14/19 09:54 Dose: 1 tab Levothyroxine Sodium (Synthroid Tab*) 175 mcg PO 0600 [facility] Last Admin: 02/14/19 06:15 Dose: 175 mcg Loperamide HCl (Imodium Cap*) 2 mg PO .SEE DIRECTIONS PRN PRN Reason: DIARRHEA Last Admin: 02/13/19 17:41 Dose: 2 mg Melatonin (Melatonin) 3 mg PO BEDTIME [facility] Last Admin: 02/13/19 21:02 Dose: 3 mg Mometasone Furoate (Asmanex 220 Mcg Mdi *) 2 puff INH QPM [facility] Last Admin: 02/14/19 08:00 Dose: Not Given Mupirocin (Bactroban 2 % Oint*) 1 applic TOPICAL BID [facility] Last Admin: 02/14/19 11:12 Dose: Not Given Ondansetron HCl (Zofran Inj*) 4 mg IV Q6H PRN PRN Reason: NAUSEA Last Admin: 02/11/19 04:37 Dose: 4 mg Oxycodone/Acetaminophen (Percocet 5/325 Tab*) 1 tab PO Q6HR PRN PRN Reason: PAIN - MILD Last Admin: 02/13/19 17:41 Dose: 1 tab Pantoprazole Sodium (Protonix Tab*) 40 mg PO DAILY [facility] Last Admin: 02/14/19 09:54 Dose: 40 mg Pregabalin (Lyrica Cap(*)) 50 mg PO BEDTIME [facility] Last Admin: 02/13/19 21:02 Dose: 50 mg Sertraline HCl (Zoloft*) 200 mg PO DAILY [facility] Last Admin: 02/14/19 09:54 Dose: 200 mg Simethicone (Mylicon Tab*) 80 mg PO AC [facility] Last Admin: 02/14/19 08:34 Dose: 80 mg Tiotropium [place] (Spiriva Respimat 2.5 Mcg) 2 puff INH DAILY [facility] Last Admin: 02/14/19 11:01 Dose: 2 puff Vital Signs - 8 hr 02/14/19 02/14/19 08:00 12:11 Temperature 98.9 F 98.2 F Pulse Rate 71 62 Respiratory 20 20 Rate Blood Pressure 132/59 131/57 (mmHg) O2 Sat by Pulse 97 99 Oximetry Oxygen Devices in Use Now: Nasal Cannula Appearance: 68 yo F in nAD, aAOx3 Eyes: No Scleral Icterus, PERRLA Ears/Nose/Mouth/Throat: NL Teeth, Lips, Gums, Mucous Membranes Moist Neck: Trachea Midline, - - JVD noted Respiratory: Symmetrical Chest Expansion and Respiratory Effort, Clear to Auscultation Cardiovascular: NL Sounds; No Murmurs; No JVD, RRR Abdominal: No Hepatosplenomegaly, - - mild distention of parastomal hernia noted , mild tenderness in LLQ, no rebound, no guarding, BS+, colostomy in place Lymphatic: No Cervical Adenopathy Extremities: No Clubbing, Cyanosis, - - +1 pitting pedal edema Skin: No Rash or Ulcers, No Nodules or Sclerosis Neurological: Alert and Oriented x 3, NL Muscle Strength and Tone Result Diagrams: 02/14/19 11:23 02/14/19 11:23 Microbiology and Other Data: Microbiology 02/10/19 17:54 Stool Gross Appearance - Final Stool Rotavirus Antigen - Final Negative Rotavirus 02/10/19 15:50 Nasal Screen MRSA (PCR) - Final Nasal Mrsa Not Detected 02/10/19 12:05 Stool Gross Appearance - Final Stool C. 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 - Patient Problems (1) Diastolic CHF Comment: - Currently in acute exacerbation. -will tx with IV Lasix -restart home diuretics (2) Gastroenteritis Comment: - Likely due to Viral or Toxic process - off antibiotics -stool output has lessen - cont simethicone for gas pains - Stool culture : C. Diff Negative. Rotavirus, shiga toxin neg - cont imodium prn, probiotics - Initially in hypovolemic shock, resolved (3) Acute renal failure Comment: - Initial Creat 4 - Prerenal. - resolved (4) Atrial fibrillation Comment: - Paced, Continue Amio -due to h/o recurrent GI bleeding, now off anticoagulation (5) COPD (chronic obstructive pulmonary disease) Comment: stable. Continue home meds (6) DM2 (diabetes mellitus, type 2) Comment: glipizide/metformin held, cont SSI (7) HTN (hypertension) Comment: normotensive, holding ramipril (8) Hypothyroidism (acquired) Comment: - Continue synthroid (9) S/P aortic valve replacement with bioprosthetic valve Comment: - Porcine valve noted with stable function on ECHO 08/24/18 - No murmur. (10) Anemia Comment: likely due to hemodilution -pt received >4000 ml of IVF -no evidence of melena, or blood in stoma, but stool heme+. D/w pt-she is aware of occasional bleed from known colon AVM's. She did not notice melena, or bright blood. Hb relatively stable(considering the IVF pt received), will cont to monitor. Pt is not interested in GI consult and was told before that she is not a good candidate for GI procedures due to her CAD (11) DVT prophylaxis Comment: - SQ heparin held due to heme+ stool -SCD's Status and Disposition: Inpatient
[2019-02-14] MEDS: Spironolactone TAB* 25 MG PO SCH (12:49)
[2019-02-14] MEDS: Torsemide TAB* 20 MG PO SCH (14:33)
[2019-02-14] MEDS: Melatonin 3 MG TAB PO SCH (20:18)
[2019-02-14] MEDS: Atorvastatin* 80 MG TAB PO SCH (20:18)
[2019-02-14] MEDS: Pregabalin CAP(*) 50 MG PO SCH (20:19)
[2019-02-14] MEDS: ALPRAZolam TAB* 0.25 MG PO PRN (20:45)
[2019-02-14] MEDS: oxyCODONE/Acetamin 5/325 MG* TAB PO PRN (20:46)
[2019-02-15 06:07] LABS: BUN/Creatinine Ratio 16.1 (8-20); Calcium 8.3 mg/dL (8.6-10.3); EGFR African American 58.5 (>60); EGFR Non-African American 48.4 (>60)
[2019-02-15 06:08] LABS: Hematocrit 24 % (35-47); Hemoglobin 7.5 g/dL (12.0-16.0); Mean Corpuscular HGB Conc 31 g/dL (31-36); Mean Corpuscular Hemoglobin 23 pg (27-31); Mean Corpuscular Volume 74 fL (80-97); Platelet Count 189 10^3/uL (150-450); Red Blood Count 3.24 10^6 /uL (3.70-4.87); Red Cell Distribution Width 22 % (10-15); White Blood Count 8.1 10^3/uL (3.5-10.8)
[2019-02-15] MEDS: Levothyroxine TAB* 175 MCG TAB PO SCH (06:20)
[2019-02-15 06:42] LABS: ABS Basophils 0.1 10^3/ul (0-0.2); ABS Eosinophils 0.2 10^3/ul (0-0.6); ABS Lymphocytes 1.2 10^3/ul (1.0-4.8); ABS Monocytes 1.1 10^3/ul (0-0.8); ABS Neutrophils 5.5 10^3/ul (1.5-7.7); Eosinophil % 2.9 %; Lymphocyte % 14.9 %; Nucleated Red Blood Cells % 0.1
[2019-02-15] MEDS ORDERED: Furosemide IV* 10 MG/ML VIAL (40 MG) IV ONE (09:31)
--- NOTE | 2019-02-15 09:57 | PN ---
Subjective Date of Service: 02/15/19 Interval History: SOB and abd pain resolved, but pt still feels weak denies melena or blood in colostomy bag Family History: Unchanged from Admission Social History: Unchanged from Admission Past Medical History: Unchanged from Admission Objective Active Medications: Acetaminophen (Tylenol Tab*) 650 mg PO Q6H PRN PRN Reason: MILD PAIN or TEMP > 100.4 Last Admin: 02/11/19 20:52 Dose: 650 mg Albuterol (Ventolin 2.5 Mg/3 Ml Neb.Lorie*) 2.5 mg INH Q4H PRN PRN Reason: SOB/WHEEZING Albuterol (Ventolin Hfa Inhaler*) 2 puff INH Q4H PRN PRN Reason: SOB/WHEEZING Last Admin: 02/14/19 11:01 Dose: 2 puff Alprazolam (Xanax Tab*) 0.25 mg PO TID PRN PRN Reason: ANXIETY Last Admin: 02/14/19 20:45 Dose: 0.25 mg Amiodarone HCl (Cordarone Tab*) 200 mg PO DAILY [facility] Last Admin: 02/14/19 09:54 Dose: 200 mg Atorvastatin Calcium (Lipitor*) 80 mg PO BEDTIME [facility] Last Admin: 02/14/19 20:18 Dose: 80 mg Dextrose (Dextrose 50% Vial 50 Ml*) 25 ml IV PUSH .FOR FS < 60 - SS PRN PRN Reason: FS < 60 Insulin Human Lispro (Humalog*) 0 units SUBCUT [facility]; Protocol Last Admin: 02/14/19 22:55 Dose: 3 units Lactobacillus Rhamnosus (Lactobacillus Acidophilus*) 1 tab PO BID [facility] Last Admin: 02/14/19 20:18 Dose: 1 tab Levothyroxine Sodium (Synthroid Tab*) 175 mcg PO 0600 [facility] Last Admin: 02/15/19 06:20 Dose: 175 mcg Loperamide HCl (Imodium Cap*) 2 mg PO .SEE DIRECTIONS PRN PRN Reason: DIARRHEA Last Admin: 02/13/19 17:41 Dose: 2 mg Melatonin (Melatonin) 3 mg PO BEDTIME [facility] Last Admin: 02/14/19 20:18 Dose: 3 mg Metolazone (Zaroxolyn Tab*) 2.5 mg PO DAILY [facility] Mometasone Furoate (Asmanex 220 Mcg Mdi *) 2 puff INH QPM [facility] Last Admin: 02/14/19 20:44 Dose: 2 puff Mupirocin (Bactroban 2 % Oint*) 1 applic TOPICAL BID [facility] Last Admin: 02/14/19 20:34 Dose: 1 applic Ondansetron HCl (Zofran Inj*) 4 mg IV Q6H PRN PRN Reason: NAUSEA Last Admin: 02/11/19 04:37 Dose: 4 mg Oxycodone/Acetaminophen (Percocet 5/325 Tab*) 1 tab PO Q6HR PRN PRN Reason: PAIN - MILD Last Admin: 02/14/19 20:46 Dose: 1 tab Pantoprazole Sodium (Protonix Tab*) 40 mg PO DAILY [facility] Last Admin: 02/14/19 09:54 Dose: 40 mg Pregabalin (Lyrica Cap(*)) 50 mg PO BEDTIME [facility] Last Admin: 02/14/19 20:19 Dose: 50 mg Sertraline HCl (Zoloft*) 200 mg PO DAILY [facility] Last Admin: 02/14/19 09:54 Dose: 200 mg Simethicone (Mylicon Tab*) 80 mg PO AC [facility] Last Admin: 02/14/19 17:20 Dose: 80 mg Spironolactone (Aldactone Tab*) 25 mg PO DAILY [facility] Last Admin: 02/14/19 12:49 Dose: 25 mg Tiotropium [place] (Spiriva Respimat 2.5 Mcg) 2 puff INH DAILY [facility] Last Admin: 02/14/19 11:01 Dose: 2 puff Torsemide (Demadex*) 40 mg PO DAILY [facility] Last Admin: 02/14/19 14:33 Dose: 40 mg Vital Signs - 8 hr 02/15/19 02/15/19 03:47 08:00 Pulse Rate 59 Respiratory 18 20 Rate Blood Pressure 105/59 (mmHg) O2 Sat by Pulse 98 Oximetry Oxygen Devices in Use Now: Nasal Cannula Appearance: 68 yo F in nAD, aAOx3 Eyes: No Scleral Icterus, PERRLA Ears/Nose/Mouth/Throat: NL Teeth, Lips, Gums, Mucous Membranes Moist Neck: NL Appearance and Movements; NL JVP, Trachea Midline Respiratory: Symmetrical Chest Expansion and Respiratory Effort, Clear to Auscultation Cardiovascular: RRR, - - 2/6 ASHLEY Abdominal: NL Sounds; No Tenderness; No Distention, - - parastomal hernia not tender today Extremities: No Clubbing, Cyanosis, - - +1 pitting pedal edema b/l Skin: No Nodules or Sclerosis Neurological: Alert and Oriented x 3, NL Muscle Strength and Tone Result Diagrams: 02/15/19 05:33 02/15/19 05:33 Microbiology and Other Data: Microbiology 02/10/19 17:54 Stool Gross Appearance - Final Stool Rotavirus Antigen - Final Negative Rotavirus 02/10/19 15:50 Nasal Screen MRSA (PCR) - Final Nasal Mrsa Not Detected 02/10/19 12:05 Stool Gross Appearance - Final Stool C. 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 - Patient Problems (1) Anemia Comment: likely due to hemodilution -pt received >4000 ml of IVF -no evidence of melena, or blood in stoma, but stool heme+intially,, but when diarrhea resolved on 02/14-heme- D/w pt-she is aware of occasional bleed from known colon AVM's. She did not notice melena, or bright blood.Pt is not interested in GI consult and was told before that she is not a good candidate for GI procedures due to her CAD Due to Hb of 7.5 today and pt feeling tired (with h/o significant CAD) will transfuse 1 U PRBC followed by a dose of IV Lasix (due to h/o CHF) (2) Diastolic CHF Comment: - acute exacerbation resolved. -cont home diuretics (3) Gastroenteritis Comment: - Likely due to Viral or Toxic process - resolved - cont simethicone for gas pains - Initially in hypovolemic shock, resolved (4) Acute renal failure Comment: - Initial Creat 4 - Prerenal. - resolved (5) Atrial fibrillation Comment: - Paced, Continue Amio -due to h/o recurrent GI bleeding, now off anticoagulation (6) COPD (chronic obstructive pulmonary disease) Comment: stable. Continue home meds (7) DM2 (diabetes mellitus, type 2) Comment: glipizide/metformin held, cont SSI (8) HTN (hypertension) Comment: normotensive, holding ramipril (9) Hypothyroidism (acquired) Comment: - Continue synthroid (10) S/P aortic valve replacement with bioprosthetic valve Comment: - Porcine valve noted with stable function on ECHO 08/24/18 (11) DVT prophylaxis Comment: - SQ heparin held due to heme+ stool -SCD's Status and Disposition: Inpatient. If stable after transfusion today, can go home on 02/16/19 back to [facility]
[2019-02-15] MEDS: Insulin LISPRO* 1 UNITS UNIT SUBCUT SCH ×4 (10:30→19:54)
[2019-02-15] MEDS: Pantoprazole TAB * 40 MG TAB PO SCH (10:36)
[2019-02-15] MEDS: Lactobacillus Acidophilus* 1 TAB PO SCH ×2 (10:36→19:53)
[2019-02-15] MEDS: Torsemide TAB* 20 MG PO SCH (10:36)
[2019-02-15] MEDS: Sertraline* 100 MG TAB PO SCH (10:36)
[2019-02-15] MEDS: Metolazone TAB* 5 MG PO SCH (10:37)
[2019-02-15] MEDS: Spironolactone TAB* 25 MG PO SCH (10:37)
[2019-02-15] MEDS: Amiodarone TAB* 200 MG PO SCH (10:37)
[2019-02-15] MEDS: Simethicone TAB* 80 MG TAB.CHEW PO SCH ×3 (10:37→18:06)
[2019-02-15] MEDS: Mupirocin 2% OINT* TUBE TOPICAL SCH ×2 (10:38→19:30)
[2019-02-15] MEDS: oxyCODONE/Acetamin 5/325 MG* TAB PO PRN (14:09)
[2019-02-15] MEDS ORDERED: Furosemide IV* 10 MG/ML 2 ML VIAL (20 MG) ONE (14:34)
[2019-02-15] MEDS: SPIRIVA Respimat* (tiotropium) 2.5 mcg/inh Inhaler INH SCH (17:34)
[2019-02-15] MEDS: Atorvastatin* 80 MG TAB PO SCH (19:53)
[2019-02-15] MEDS: Melatonin 3 MG TAB PO SCH (19:53)
[2019-02-15] MEDS: Pregabalin CAP(*) 50 MG PO SCH (19:53)
[2019-02-15] MEDS: Mometasone 220 MCG MDI INH SCH (20:01)
[2019-02-16] MEDS: Levothyroxine TAB* 175 MCG TAB PO SCH (05:33)
[2019-02-16 06:08] LABS: ABS Basophils 0.1 10^3/ul (0-0.2); ABS Eosinophils 0.2 10^3/ul (0-0.6); ABS Lymphocytes 1.1 10^3/ul (1.0-4.8); ABS Monocytes 0.9 10^3/ul (0-0.8); ABS Neutrophils 4.3 10^3/ul (1.5-7.7); BUN/Creatinine Ratio 17.7 (8-20); Calcium 8.5 mg/dL (8.6-10.3); Eosinophil % 3.4 %; Hematocrit 30 % (35-47); Hemoglobin 9.2 g/dL (12.0-16.0); Lymphocyte % 16.4 %; Mean Corpuscular HGB Conc 31 g/dL (31-36); Mean Corpuscular Hemoglobin 24 pg (27-31); Mean Corpuscular Volume 79 fL (80-97); Mean Platelet Volume 8.2 fL (7.4-10.4); Nucleated Red Blood Cells % 0.3; Platelet Count 107 10^3/uL (150-450); Potassium 3.9 mmol/L (3.5-5.0); Red Blood Count 3.83 10^6 /uL (3.70-4.87); Red Cell Distribution Width 22 % (10-15); White Blood Count 6.5 10^3/uL (3.5-10.8)
[2019-02-16] MEDS: Insulin LISPRO* 1 UNITS UNIT SUBCUT SCH ×2 (08:13→12:12)
[2019-02-16] MEDS: Torsemide TAB* 20 MG PO SCH (08:24)
[2019-02-16] MEDS: Metolazone TAB* 5 MG PO SCH (08:24)
[2019-02-16] MEDS: Sertraline* 100 MG TAB PO SCH (08:24)
[2019-02-16] MEDS: Spironolactone TAB* 25 MG PO SCH (08:25)
[2019-02-16] MEDS: Lactobacillus Acidophilus* 1 TAB PO SCH (08:25)
[2019-02-16] MEDS: Amiodarone TAB* 200 MG PO SCH (08:25)
[2019-02-16] MEDS: Simethicone TAB* 80 MG TAB.CHEW PO SCH ×2 (08:26→11:41)
[2019-02-16] MEDS: Pantoprazole TAB * 40 MG TAB PO SCH (08:26)
[2019-02-16] MEDS: Mupirocin 2% OINT* TUBE TOPICAL SCH (08:27)
[2019-02-16] MEDS: SPIRIVA Respimat* (tiotropium) 2.5 mcg/inh Inhaler INH SCH (09:36)
--- NOTE | 2019-02-16 10:21 | PN ---
Subjective Date of Service: 02/16/19 Family History: Unchanged from Admission Social History: Unchanged from Admission Past Medical History: Unchanged from Admission Objective Active Medications: Acetaminophen (Tylenol Tab*) 650 mg PO Q6H PRN PRN Reason: MILD PAIN or TEMP > 100.4 Last Admin: 02/11/19 20:52 Dose: 650 mg Albuterol (Ventolin 2.5 Mg/3 Ml Neb.Lorie*) 2.5 mg INH Q4H PRN PRN Reason: SOB/WHEEZING Albuterol (Ventolin Hfa Inhaler*) 2 puff INH Q4H PRN PRN Reason: SOB/WHEEZING Last Admin: 02/14/19 11:01 Dose: 2 puff Alprazolam (Xanax Tab*) 0.25 mg PO TID PRN PRN Reason: ANXIETY Last Admin: 02/14/19 20:45 Dose: 0.25 mg Amiodarone HCl (Cordarone Tab*) 200 mg PO DAILY [facility] Last Admin: 02/16/19 08:25 Dose: 200 mg Atorvastatin Calcium (Lipitor*) 80 mg PO BEDTIME [facility] Last Admin: 02/15/19 19:53 Dose: 80 mg Dextrose (Dextrose 50% Vial 50 Ml*) 25 ml IV PUSH .FOR FS < 60 - SS PRN PRN Reason: FS < 60 Insulin Human Lispro (Humalog*) 0 units SUBCUT [facility]; Protocol Last Admin: 02/16/19 08:13 Dose: Not Given Lactobacillus Rhamnosus (Lactobacillus Acidophilus*) 1 tab PO BID [facility] Last Admin: 02/16/19 08:25 Dose: 1 tab Levothyroxine Sodium (Synthroid Tab*) 175 mcg PO 0600 [facility] Last Admin: 02/16/19 05:33 Dose: 175 mcg Loperamide HCl (Imodium Cap*) 2 mg PO .SEE DIRECTIONS PRN PRN Reason: DIARRHEA Last Admin: 02/13/19 17:41 Dose: 2 mg Melatonin (Melatonin) 3 mg PO BEDTIME [facility] Last Admin: 02/15/19 19:53 Dose: 3 mg Metolazone (Zaroxolyn Tab*) 2.5 mg PO DAILY [facility] Last Admin: 02/16/19 08:24 Dose: 2.5 mg Mometasone Furoate (Asmanex 220 Mcg Mdi *) 2 puff INH QPM [facility] Last Admin: 02/15/19 20:01 Dose: 2 puff Mupirocin (Bactroban 2 % Oint*) 1 applic TOPICAL BID [facility] Last Admin: 02/16/19 08:27 Dose: 1 applic Ondansetron HCl (Zofran Inj*) 4 mg IV Q6H PRN PRN Reason: NAUSEA Last Admin: 02/11/19 04:37 Dose: 4 mg Oxycodone/Acetaminophen (Percocet 5/325 Tab*) 1 tab PO Q6HR PRN PRN Reason: PAIN - MILD Last Admin: 02/15/19 14:09 Dose: 1 tab Pantoprazole Sodium (Protonix Tab*) 40 mg PO DAILY [facility] Last Admin: 02/16/19 08:26 Dose: 40 mg Pregabalin (Lyrica Cap(*)) 50 mg PO BEDTIME [facility] Last Admin: 02/15/19 19:53 Dose: 50 mg Sertraline HCl (Zoloft*) 200 mg PO DAILY [facility] Last Admin: 02/16/19 08:24 Dose: 200 mg Simethicone (Mylicon Tab*) 80 mg PO AC [facility] Last Admin: 02/16/19 08:26 Dose: 80 mg Spironolactone (Aldactone Tab*) 25 mg PO DAILY [facility] Last Admin: 02/16/19 08:25 Dose: 25 mg Tiotropium [place] (Spiriva Respimat 2.5 Mcg) 2 puff INH DAILY [facility] Last Admin: 02/16/19 09:36 Dose: Not Given Torsemide (Demadex*) 40 mg PO DAILY [facility] Last Admin: 02/16/19 08:24 Dose: 40 mg Vital Signs - 8 hr 02/16/19 04:43 Temperature 97.9 F Pulse Rate 60 Respiratory 16 Rate Blood Pressure 111/56 (mmHg) O2 Sat by Pulse 95 Oximetry Oxygen Devices in Use Now: Nasal Cannula Result Diagrams: 02/16/19 05:30 02/16/19 05:30 Microbiology and Other Data: Microbiology 02/10/19 17:54 Stool Gross Appearance - Final Stool Rotavirus Antigen - Final Negative Rotavirus 02/10/19 15:50 Nasal Screen MRSA (PCR) - Final Nasal Mrsa Not Detected 02/10/19 12:05 Stool Gross Appearance - Final Stool C. 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 Status and Disposition: Inpatient. If stable after transfusion today, can go home on 02/16/19 back to [facility]
[2019-02-16 13:17] VITALS: BP 139/72
--- NOTE | 2019-02-17 00:09 | DS ---
DISCHARGE SUMMARY: DATE OF ADMISSION: 02/10/19 DATE OF DISCHARGE: 02/16/19 PRIMARY CARE PHYSICIAN: Dr. Simons. PROVIDER: Kathe Alcaraz NP ATTENDING PHYSICIAN: Dr. Willie Eller * (dictated by Kathe Alcaraz NP). PRIMARY DISCHARGE DIAGNOSES: 1. Gastroenteritis. 2. Acute kidney injury. 3. Heart failure with exacerbation. 4. Anemia, status post blood transfusion. SECONDARY DISCHARGE DIAGNOSES: 1. Bowel obstruction due to diverticular disease, status post ostomy. 2. Paroxysmal atrial fibrillation. 3. Heart failure with preserved ejection fraction. 4. 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 5. Parastomal hernia. 6. Nephrolithiasis. 7. May-Thurner syndrome, status post IVC filter. 8. Coronary artery disease. 9. Type 2 diabetes. 10. Hypertension. 11. Depression. 12. Chronic pain. 13. History of deep venous thrombosis. 14. Chronic obstructive pulmonary disease. 15. Chronic hypoxic respiratory failure, on 2 L of oxygen. HOME MEDICATIONS AT DISCHARGE: 1. Percocet 1 tab q.6 hours p.r.n. 2. Bactroban 1 application topical b.i.d. 3. Metoprolol succinate 50 mg daily. 4. Metolazone 2.5 mg daily. 5. Cholecalciferol 1000 units daily. 6. Torsemide 40 mg daily. 7. Tiotropium 1 capsule inhaled daily. 8. Spironolactone 25 mg daily. 9. Sertraline 200 mg daily. 10. Pregabalin 50 mg at bedtime. 11. Omeprazole 40 mg daily. 12. Metformin 500 mg b.i.d. 13. Melatonin 3 mg q.p.m. 14. Levothyroxine 175 mcg q.a.m. 15. Glipizide 2.5 mg daily. 16. Zetia 10 mg daily. 17. EpiPen 0.3 mg IM as directed. 18. Atorvastatin 80 mg at bedtime. 19. Amiodarone 200 mg daily. 20. Albuterol 2 puffs inhale q.4 hours p.r.n. 21. Albuterol neb solution 2.5 mg inhale q.4 hours p.r.n. 22. Simethicone 80 mg with meals. 23. Asmanex 220 mcg 2 puffs inhale q.p.m. 24. Lactobacillus 1 tab b.i.d. 25. Alprazolam 0.25 mg t.i.d. p.r.n. 26. Ramipril 1 capsule daily. Please note the patient has been instructed to hold ramipril until seen by her PCP due to systolic pressures. HOSPITAL COURSE OF STAY: For full details, please refer to the H and P provided by Beni Thompson on 02/10/19. In summary, this is a 68-year-old female, who presented to the ER with concerns for diarrhea and vomiting x18 hours. She is also noted to have hypotension and elevated creatinine, which was thought to be secondary to hypovolemic shock and acute kidney injury in the face of dehydration and low volume. She was started on Zosyn to cover intraabdominal and respiratory pathogens and resuscitated with fluids. It was eventually thought that this diarrhea and dehydration was likely secondary to toxic or viral processes. She is responding well to fluids and supportive care and her renal function improved to her baseline. She is now tolerating p.o. intake. She did have concern as well for acute exacerbation of her diastolic CHF due to fluid resuscitation, and she did respond well to diuretic therapy with resolution of symptoms. She was also noted during her hospitalization to have anemia with H and H of 7.5 and 24, initially thought to be secondary to hemodilution. However, she was symptomatic with fatigue and excessive shortness of breath. There was also discussed the possibility of continued bleeding from her known colonic AVM. She denied any melena or bright blood and she had refused GI consult, as she was previously told she was not a good candidate for procedures. It was determined that she may benefit from a unit of blood, and she was given 1 unit of packed red blood cells followed by IV Lasix with good effect. She also report improvement of her symptoms and states that she was able to appreciate a large difference in her overall energy. Blood pressures have be soft during her time here and started to improve back to her baseline. Prior to discharge, she was ranging from 110 to 130 for systolics and 50 to 70 for diastolic. She has not been taking her ramipril or her metoprolol. She has been instructed to restart her metoprolol but to hold ramipril until followup with her PCP and begin monitor blood pressures again to ensure that it is safe to restart. Ms. Ziegler is in stable condition this morning. She is working with PT and ambulatory. She is on her chronic 2 L of oxygen. She denies any fever, chills , chest pain, shortness of breath, abdominal pain, nausea, vomiting, or other concerns. She states that her ostomy output is closer to normal with some liquid but also with some formed stool. No blood or tarry stool is noted. PHYSICAL EXAMINATION: Vital Signs: Temperature 98.2, heart rate 66, respiratory rate 20, blood pressure 139/72 and O2 saturation is 98% on 2 L nasal cannula. General: This is a 68-year-old female, out of bed to chair, in no acute distress. HEENT: Head is atraumatic, normocephalic. Pupils are equal , round, and reactive to light and accommodation. Sclerae anicteric. Extraocular movements are intact. Oral mucosa is moist. Neck is supple. No lymphadenopathy appreciated. Cardiac: Regular rate and rhythm. Systolic murmur noted best along the right upper sternal border. Lungs are clear to auscultation. Abdomen is soft, nontender, colostomy in place. Musculoskeletal : She has no clubbing or cyanosis. She has active range of motion of all her extremities with +1 pitting edema. Skin: Grossly intact. Neuro: She is alert and oriented x3. No focal deficits noted. OUTPATIENT FOLLOWUP NEEDS: She is to follow up with her PCP next week as scheduled on 02/23/19. She is advised to have her blood pressure taken at that time and to resume all home medications if blood pressures are stable. Her creatinine is back in baseline. She should be followed closely in the outpatient setting. ACTIVITIES: As tolerated. DIET: Resume previous diet. CONDITION: Stable. DISPOSITION: To home with home health services. TIME SPENT: Approximately 40 minutes was spent on this discharge. This is a brief summary of the patient's hospital course of stay. For full details, please refer to the full medical records. If you have any further questions or need further assistance, please feel free to contact me at [phone]. KATHE ALCARAZ NP [id number]/[facility] #: [id number] SERENA
== END 2019-02-16 16:10 | disposition home health service (06) | DRG 682 ==
LOC: ED 10:31 → ICU 13:19 → MEDTELE 02-11 14:49
PROVIDERS: ADMIT Internal Medicine; ATTEND Internal Medicine
PROC: 30233N1 Transfusion of Nonautologous Red Blood Cells into Peripheral Vein, Percutaneous Approach (ICD-10-PCS; principal; 2019-02-15)
DX: N17.9 Acute kidney failure, unspecified (principal); I50.33 Acute on chronic diastolic (congestive) heart failure; R57.1 Hypovolemic shock; J96.11 Chronic respiratory failure with hypoxia; Z68.41 Body mass index [BMI] 40.0-44.9, adult; A08.4 Viral intestinal infection, unspecified; I48.0 Paroxysmal atrial fibrillation; I25.10 Atherosclerotic heart disease of native coronary artery without angina pectoris; J44.9 Chronic obstructive pulmonary disease, unspecified; I11.0 Hypertensive heart disease with heart failure; F32.9 Major depressive disorder, single episode, unspecified; E78.00 Pure hypercholesterolemia, unspecified; G47.30 Sleep apnea, unspecified; K21.9 Gastro-esophageal reflux disease without esophagitis; M19.012 Primary osteoarthritis, left shoulder; M19.011 Primary osteoarthritis, right shoulder; F41.9 Anxiety disorder, unspecified; Z96.642 Presence of left artificial hip joint; D64.9 Anemia, unspecified; E66.9 Obesity, unspecified; E03.9 Hypothyroidism, unspecified; G89.29 Other chronic pain; Z86.718 Personal history of other venous thrombosis and embolism; Z95.0 Presence of cardiac pacemaker; Z99.81 Dependence on supplemental oxygen; Z95.2 Presence of prosthetic heart valve; Z87.442 Personal history of urinary calculi; Z88.8 Allergy status to other drugs, medicaments and biological substances; Z91.030 Bee allergy status; Z91.041 Radiographic dye allergy status; Z91.013 Allergy to seafood; Z87.891 Personal history of nicotine dependence; Z86.711 Personal history of pulmonary embolism; Z98.51 Tubal ligation status; Z90.49 Acquired absence of other specified parts of digestive tract; Z79.84 Long term (current) use of oral hypoglycemic drugs; Z93.3 Colostomy status
CPT/HCPCS: 36415; 71045; 74176; 80048; 80053; 81003; 82150; 82272; 82570; 83605; 83630; 83690; 83735; 83880; 84300; 84484; 84540; 85025; 86140; 86850; 86900; 86901; 86922; 87045; 87046; 87077; 87425; 87493; 87641; 87899; 93005; 94640; 99285; A9270-GY; G8978-GP-CJ; G8979-GP-CI; J1644; J1940; J2405; J2543; J3475; J3535; P9040

== ENCOUNTER 2019-05-29 11:26 | Emergency (ER) | payer MEDICARE, OTHER ==
--- NOTE | 2019-05-29 11:43 | ED ---
Shortness of Breath - HPI Summary HPI Summary: This pt is a 68 y/o female, with hx of COPD, presenting to [facility] via EMS c/o increased leg swelling since last night and SOB today. Pt reports she went to play bingo last night and when she arrived home last night her legs were "killing" her and noticed her legs were swollen. Additionally notes she is feeling SOB since this morning. Pt endorses a cough. Denies fever, chest pain, nausea, vomiting. She reports she did her breathing treatments today with no relief. Pt wears 2L of oxygen at home at baseline. PMHx includes pacemaker placed last year, COPD, afib, DVT, PE, CHF, CAD s/p CABG. Pt lives in [facility]. - History of Current Complaint Chief Complaint: EDShortnessOfBreath Time Seen by Provider: 05/29/19 11:33 Hx Obtained From: Patient Onset/Duration: Lasting Days, Still Present Timing: Constant Current Severity: Moderate Dyspnea At: Rest Aggravating Factors: Nothing Alleviating Factors: Nothing Associated Signs & Symptoms: Cough (Nonproductive), Edema - Allergy/Home Medications Allergies/Adverse Reactions: Allergies Allergy/AdvReac Type Severity Reaction Status Date / Time bee venom protein (honey bee) Allergy Severe Rash Verified 05/29/19 11:36 shellfish derived Allergy Severe Hives Verified 05/29/19 11:36 Iodinated Contrast Media Allergy Intermediate Hives Verified 05/29/19 11:36 [Iodinated Contrast- Oral and IV Dye] celecoxib Allergy Hives Verified 05/29/19 11:36 Home Medications: Home Medications ALPRAZolam TAB* [Xanax TAB*] 0.5 mg PO TID PRN MDD 1.5 mg 05/29/19 [History Confirmed 05/29/19] Fluticasone HFA 110 mcg(NF) [Flovent HFA 110 mcg(NF)] 2 puff INH BID 05/29/19 [ History Confirmed 05/29/19] Nut.tx.gluc.intoler,Lac-Fr,Soy [Glucerna Advance] 237 ml PO DAILY 05/29/19 [ History Confirmed 05/29/19] Torsemide TAB* [Demadex 20 MG*] 60 mg PO DAILY 05/29/19 [History Confirmed 05/29] PMH/Surg Hx/FS Hx/Imm Hx Endocrine/Hematology History: Reports: Hx Anticoagulant Therapy - Xarelto, Hx Diabetes, Hx Thyroid Disease, Hx Anemia, Other Endocrine/Hematological Disorders - 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, causing DVTs) Cardiovascular History: Reports: Hx Atrial Fibrillation, Hx Cardiac Arrest, Hx Congestive Heart Failure, Hx Coronary Artery Disease, Hx Deep Vein Thrombosis, Hx Hypercholesterolemia, Hx Hypotension, Hx Hypertension, Hx Pacemaker/ICD - PACEMAKER 03/09/18, Hx Peripheral Vascular Disease, Hx Valvular Heart Disease, Other Cardiovascular Problems/Disorders - valve replacement, CABG Respiratory History: Reports: Hx Asthma, Hx Chronic Obstructive Pulmonary Disease (COPD), Hx Pneumonia, Hx Pulmonary Embolism, Hx Sleep Apnea, Other Respiratory Problems/Disorders - home o2, 2.5L GI History: Reports: Hx Diverticulosis, Hx Gall Bladder Disease, Hx Gastroesophageal Reflux Disease, Hx Gastrointestinal Bleed - 08/22/16 admission, Hx Hiatal Hernia - ventral hernia, Other GI Disorders - DIVERTICULITIS, SBO with colostomy, bowel AVM's History: Reports: Hx Kidney Stones, Hx Renal Disease - KIDNEY STONES Denies: Hx Dialysis, Other Problems/Disorders Musculoskeletal History: Reports: Hx Arthritis - legs and shoulders, Hx Back Problems, Hx Bursitis, Hx Scoliosis, Other Musculoskeletal History - Left hip replacement Denies: Hx Osteoporosis Sensory History: Reports: Hx Contacts or Glasses Denies: Hx Deafness, Hx Hearing Aid Opthamlomology History: Reports: Hx Contacts or Glasses Neurological History: Denies: Hx Dementia, Hx Developmental Delay, Hx Headaches, Hx Migraine, Hx Nerve Disease, Hx Seizures, Hx Spinal Cord Injury, Hx Transient Ischemic Attacks (TIA), Other Neuro Impairments/Disorders Psychiatric History: Reports: Hx Anxiety, Hx Depression Denies: Hx Panic Disorder, Hx Substance Abuse - Cancer History Cancer Type, Location and Year: none - Surgical History Surgery Procedure, Year, and Place: TUBAL LIGATION 1979, [facility] [place] , CHOLE[place]ST[place]OM[place] [facility] [place], 2008, KIDNEY STONES REMOVED 1998, [facility] [place], TRIPLE BYPASS, HEART VALVE REPLACEMENT 2010, [facility], LEFT HIP REPLACED, 2009, [facility]. TONSILECTOMY A CHILD. COLOSTOMY 2015, IVC filter. pacemaker 2018 Hx Anesthesia Reactions: No - Immunization History Date of Tetanus Vaccine: Up to date Date of Influenza Vaccine: Fall 2011 Infectious Disease History: No Infectious Disease History: Reports: Hx of Known/Suspected MRSA - 08/22/16 [facility] + MRSA nares, Hx Shingles Denies: Hx Hepatitis, Hx Human Immunodeficiency Virus (HIV), Traveled Outside the [place] in Last 30 Days - Family History Known Family History: Positive: Cardiac Disease, Other - neg: anesthesia reaction - Social History Alcohol Use: None Hx Substance Use: No Substance Use Type: Reports: None Hx Tobacco Use: Yes Smoking Status (MU): Former Smoker Type: Cigarettes Have You Smoked in the Last Year: No Review of Systems Negative: Fever Negative: Chest Pain Positive: Shortness Of Breath, Cough Negative: Vomiting, Nausea Positive: Edema - in legs All Other Systems Reviewed And Are Negative: Yes Physical Exam - Summary Physical Exam Summary: VITAL SIGNS: Reviewed. GENERAL: Patient is a well-developed and nourished female who is lying comfortable in the stretcher. Patient is not in any acute respiratory distress. HEAD AND FACE: No signs of trauma. No ecchymosis, hematomas or skull depressions. No sinus tenderness. EYES: PERRLA, EOMI x 2, No injected conjunctiva, no nystagmus. EARS: Hearing grossly intact. Ear canals and tympanic membranes are within normal limits. MOUTH: Oropharynx within normal limits. NECK: Supple, trachea is midline, no adenopathy, no JVD, no carotid bruit, no c- spine tenderness, neck with full ROM. CHEST: Symmetric, no tenderness at palpation. LUNGS: Crackles in both bases of the lungs. CVS: Regular rate and rhythm, S1 and S2 present, no murmurs or gallops appreciated. ABDOMEN: Soft, non-tender. No signs of distention. No rebound, no guarding, and no masses palpated. Bowel sounds are normal. EXTREMITIES: FROM in all major joints, no cyanosis or clubbing. Bilateral lower extremity edema 2+. Increased erythema in both legs. NEURO: Alert and oriented x 3. No acute neurological deficits. Speech is normal and follows commands. SKIN: Dry and warm. Triage Information Reviewed: Yes Vital Signs On Initial Exam: Initial Vitals Temp Pulse Resp BP Pulse Ox 97.6 F 60 20 115/62 100 05/29/19 11:33 05/29/19 11:33 05/29/19 11:33 05/29/19 11:33 05/29/19 11:33 Vital Signs Reviewed: Yes Procedures - Sedation Patient Received Moderate/Deep Sedation with Procedure: No Diagnostics - Vital Signs Vital Signs Temp Pulse Resp BP Pulse Ox 05/29/19 11:33 97.6 F 60 20 115/62 100 - Laboratory Result Diagrams: 05/29/19 11:58 05/29/19 11:58 Lab Statement: Any lab studies that have been ordered have been reviewed, and results considered in the medical decision making process. - Radiology Chest XR Radiology Interpretation Completed By: Radiologist Summary of Radiographic Findings: IMPRESSION: #. Pulmonary edema. #. COPD. Dr. Echols has reviewed this report. - Ultrasound No standard instances Ultrasound Interpretation Completed By: Radiologist Summary of Ultrasound Findings: US of Bilateral Lower Extremities IMPRESSION: 1. Limited study. 2. Nonocclusive thrombus of the left common femoral vein and femoral vein. 3. Possible nonocclusive thrombus of the right peroneal vein. Dr. Echols has reviewed this report. - EKG 11:54 Cardiac Rate: NL - at 60 bpm EKG Rhythm: Sinus Rhythm Summary of EKG Findings: EKG at 1154 shows normal sinus rhythm at a rate of [address] elevations. Normal axis. Re-Evaluation - Re-Evaluation First Eval Re-Evaluation Time: 15:57 Comment: Dr. Neely, hospitalist, evaluated the pt and recommends discharging patient home with Keflex QID and increasing Lasix to 80 mg/day. Course/Dx - Course Assessment/Plan: This pt is a 68 y/o female, with hx of COPD, presenting to [facility] via EMS c/o increased leg swelling since last night and SOB today. Pt reports she went to play bingo last night and when she arrived home last night her legs were "killing" her and noticed her legs were swollen. Additionally notes she is feeling SOB since this morning. Pt endorses a cough. Denies fever, chest pain, nausea, vomiting. She reports she did her breathing treatments today with no relief. Pt wears 2L of oxygen at home at baseline. PMHx includes pacemaker placed last year, COPD, afib, DVT, PE, CHF, CAD s/p CABG. Pt lives in [facility]. Blood work without any significant abnormality except for slight anemia, BUN is 33, creatinine 1.47, glucose 115, calcium 8.5, BNP 565. Urinalysis is contaminated therefore we will send for cultures. Chest x- ray impression: Pulmonary edema and COPD. Bilateral lower extremity ultrasound impression limited study. Nonocclusive thrombosis of the left common femoral vein. Possible nonocclusive thrombus of the right peroneal vein. In the ED course the patient was given Lasix. At this time I discussed my physical exam and findings with Dr. Neely, hospitalist. She came and assessed the patient and she recommends for the patient to be discharged home with follow-up from her PCP. Dr. Neely reviewed the labs which shows congestive heart failure, acute renal insufficiency, slight anemia, and the chest x-ray shows pulmonary edema. However, she recommended for the patient to be discharged home on follow from her PCP with Keflex QID and increasing Lasix to 80 mg a day. The patient also agrees to go home therefore she will be discharged home with follow-up from her PCP. - Diagnoses Provider Diagnoses: CHF (congestive heart failure), Lower extremity edema, Cellulitis - Physician Notifications Discussed Care of Patient With: Sena Neely Time Discussed With Above Provider: 15:07 Instructed by Provider To: Other - Discussed with Dr. Neely, hospitalist, who will consult on the patient. Discharge ED - Sign-Out/Discharge Documenting (check all that apply): Patient Departure - Discharge home - Discharge Plan Condition: Stable Disposition: HOME Prescriptions: Cephalexin CAP* [Keflex CAP*] 500 mg PO QID #40 cap Patient Education Materials: Heart Failure (ED), Cellulitis (ED), Leg Edema (ED ) Referrals: Kajal Simons MD [Primary Care Provider] - Additional Instructions: Follow up with your primary care provider in 2-3 days. Increase Lasix to 80 mg daily x 3 days. Take Keflex as prescribed 4 times a day. RETURN TO THE ED FOR ANY WORSENING OR NEW SYMPTOMS. - Billing Disposition and Condition Condition: STABLE Disposition: Home - Attestation Statements Document Initiated by Scribe: Yes Documenting Scribe: Leslie Daly Provider For Whom Sary is Documenting (Include Credential): Jace Echols MD Scribe Attestation: Leslie Love, scribed for Jace Echols MD on 05/29/19 at 1839. Scribe Documentation Reviewed: Yes Provider Attestation: The documentation as recorded by the Leslie nowak accurately reflects the service I personally performed and the decisions made by , Jace Echols MD Status of Scribe Document: Viewed
--- OUTSIDE RECORDS SUMMARY | 2019-05-29 12:05 | XMS REPORT ---
:1950 Author Organization [facility] Care Team Providers Name Role Phone Unavailable Unavailable Unavailable Problems This patient has no known problems. Allergies, Adverse Reactions, Alerts Allergy Allergy Type Status Severity Reaction(s) Onset Inactive Treating Comments Name Date Date Clinician venom-honey Base Active Unknown Reaction Interface bee Ingredient Unknown 924 shellfish Unknown Active Unknown Reaction Interface derived Unknown 924 Iodinated Unknown Active Unknown Reaction Interface Contrast Unknown 9-24 Media celecoxib Base Active Unknown Reaction Interface Ingredient Unknown 24 Medications Ordered Filled Start Stop Current Ordering Indication Dosage Frequency Signature Comments Components Medication Medication Date Date Medication? Clinician (SIG) Name Name atorvastati atorvastati No Unknown Unknown Unknown n 80 mg n 80 mg 6-05 tablet tablet sertraline sertraline No Unknown Unknown Unknown 100 mg 100 mg 6-05 tablet tablet Procedures This patient has no known procedures. Results This patient has no known results.
--- OUTSIDE RECORDS SUMMARY | 2019-05-29 12:05 | XMS REPORT ---
:1950 Author Organization [facility] Care Team Providers Name Role Phone Unavailable Unavailable Unavailable Problems This patient has no known problems. Allergies, Adverse Reactions, Alerts Allergy Allergy Type Status Severity Reaction(s) Onset Inactive Treating Comments Name Date Date Clinician venom-honey Base Active Unknown Reaction Interface bee Ingredient Unknown 24 shellfish Unknown Active Unknown Reaction Interface derived Unknown 24 Iodinated Unknown Active Unknown Reaction Interface Contrast Unknown 24 Media celecoxib Base Active Unknown Reaction Interface [...]
--- OUTSIDE RECORDS SUMMARY | 2019-05-29 12:05 | XMS REPORT ---
:1950 Author Organization [facility] Care Team Providers Name Role Phone Unavailable Unavailable Unavailable Problems This patient has no known problems. Allergies, Adverse Reactions, Alerts Allergy Allergy Type Status Severity Reaction(s) Onset Inactive Treating Comments Name Date Date Clinician venom-honey Base Active Unknown Reaction Interface bee Ingredient Unknown 924 shellfish Unknown Active Unknown Reaction Interface derived Unknown 9-24 Iodinated Unknown Active Unknown Reaction Interface Contrast [...]
--- OUTSIDE RECORDS SUMMARY | 2019-05-29 12:05 | XMS REPORT ---
:1950 Author Organization [facility] Care Team Providers Name Role Phone Unavailable [...]
--- OUTSIDE RECORDS SUMMARY | 2019-05-29 12:05 | XMS REPORT ---
:1950 Author Organization [facility] Care Team Providers Name Role Phone Unavailable [...]
--- OUTSIDE RECORDS SUMMARY | 2019-05-29 12:05 | XMS REPORT ---
:1950 Author Organization [facility] Care Team Providers Name Role Phone Unavailable [...]
--- OUTSIDE RECORDS SUMMARY | 2019-05-29 12:05 | XMS REPORT ---
:1950 Author Organization [facility] Care Team Providers Name Role Phone Unavailable [...]
--- OUTSIDE RECORDS SUMMARY | 2019-05-29 12:05 | XMS REPORT ---
:1950 Author Organization [facility] Care Team Providers Name Role Phone Unavailable [...]
--- OUTSIDE RECORDS SUMMARY | 2019-05-29 12:05 | XMS REPORT ---
:1950 Author Organization [facility] Care Team Providers Name Role Phone Unavailable [...]
--- OUTSIDE RECORDS SUMMARY | 2019-05-29 12:05 | XMS REPORT ---
:1950 Author Organization [facility] Care Team Providers Name Role Phone Unavailable [...]
--- OUTSIDE RECORDS SUMMARY | 2019-05-29 12:05 | XMS REPORT ---
:1950 Author Organization [facility] Care Team Providers Name Role Phone Unavailable [...]
--- OUTSIDE RECORDS SUMMARY | 2019-05-29 12:05 | XMS REPORT ---
:1950 Author Organization [facility] Care Team Providers Name Role Phone Unavailable [...]
--- OUTSIDE RECORDS SUMMARY | 2019-05-29 12:05 | XMS REPORT ---
:1950 Author Organization [facility] Care Team Providers Name Role Phone Unavailable [...]
--- OUTSIDE RECORDS SUMMARY | 2019-05-29 12:05 | XMS REPORT ---
:1950 Author Organization [facility] Care Team Providers Name Role Phone Unavailable [...]
--- OUTSIDE RECORDS SUMMARY | 2019-05-29 12:05 | XMS REPORT ---
:1950 Author Organization [facility] Care Team Providers Name Role Phone Unavailable Unavailable Unavailable Problems This patient has no known problems. Allergies, Adverse Reactions, Alerts Allergy Allergy Type Status Severity Reaction(s) Onset Inactive Treating Comments Name Date Date Clinician venom-honey Base Active Unknown Reaction Interface bee Ingredient Unknown 9-24 shellfish Unknown Active Unknown Reaction Interface derived Unknown 9-24 Iodinated Unknown Active Unknown Reaction Interface Contrast Unknown 9-24 Media celecoxib Base Active Unknown Reaction Interface Ingredient Unknown 924 Medications Ordered Filled Start Stop Current Ordering [...]
--- OUTSIDE RECORDS SUMMARY | 2019-05-29 12:05 | XMS REPORT ---
:1950 Author Organization [facility] Care Team Providers Name Role Phone Unavailable [...]
--- OUTSIDE RECORDS SUMMARY | 2019-05-29 12:05 | XMS REPORT ---
:1950 Author Organization [facility] Care Team Providers Name Role Phone Unavailable [...]
--- OUTSIDE RECORDS SUMMARY | 2019-05-29 12:05 | XMS REPORT ---
:1950 Author Organization [facility] Care Team Providers Name Role Phone Unavailable [...]
--- OUTSIDE RECORDS SUMMARY | 2019-05-29 12:05 | XMS REPORT ---
:1950 Author Organization [facility] Care Team Providers Name Role Phone Unavailable [...]
--- OUTSIDE RECORDS SUMMARY | 2019-05-29 12:05 | XMS REPORT | Summary of Care ---
:1950 Author Organization [facility] Address [address] [address] Care Team Providers Name Role Phone Kajal Simons Primary Care Provider Aure Nagy RN Unavailable Reason for Referral MRI/CAT/PET Scan (Routine) Status Reason Specialty Diagnoses / Referred By Referred To Procedures Contact Contact Pending Review Diagnoses Pain of right lower leg Kristyn, Procedures VL LOWER EXTREMITY DUPLEX VEINS RIGHT MD Kajal [address] [place] [address] Reason for Visit Reason Comments Follow Up to COPD exacerbation , pt c/o right calf hurting Encounter Details Date Type Department Care Team Description 05/07/2019 Office Visit [facility], Pain of right lower leg ( Primary Dx); Practice MD Kajal Renal insufficiency; [address] [facility] COPD exacerbation ([facility]) [place] [address] [place] [address] [phone] Allergies Active Allergy Reactions Severity Noted Date Comments Bee Anaphylaxis High 09/17/2008 Celecoxib Hives 09/17/2008 Dye Intravenous Radiographic Imaging Hives Medium 02/01/2013 Contrast Shellfish Allergy Rash 03/27/2010 documented as of this encounter (statuses as of 05/07/2019) Medications Medication Sig Dispensed Refills Start Date End Date Status Incontinence Supply 1 Each by Does not 100 Each 0 05/13/2015 Active Disposable ([facility] FITTED apply route THREE BRIEFS DAY/NIGHT LG) TIMES DAILY. Does not apply Misc albuterol HFA Take 2 Puffs by 1 Inhaler 5 03/22/2018 Active (VENTOLIN) 108 (90 inhalation EVERY Base) MCG/ACT FOUR HOURS Inhalation Aero Soln NEEDED (SOB). fluticasone (FLOVENT Take 2 Puffs by 1 Inhaler 5 03/22/2018 Active HFA) 110 MCG/ACT inhalation TWICE Inhalation Aerosol DAILY. sertraline (ZOLOFT) Take 2 Tabs by 60 Tab 5 03/22/2018 Active 100 MG Oral Tab mouth DAILY. tiotropium (SPIRIVA Take 1 INHL by 30 Cap 5 03/22/2018 Active HANDIHALER) 18 MCG inhalation DAILY. Inhalation Cap Alcohol Swabs TEST BLOOD SUGARS 100 Each 05/25/2018 Active (PHARMACIST CHOICE 2 TIMES DAILY ALCOHOL) Does not apply Pads PHARMACIST CHOICE TEST BLOOD SUGARS 100 Each 05/25/2018 Active LANCETS Does not apply 2 TIMES DAILY Misc ALPRAZolam (XANAX) Take 2 Tabs by 90 Tab 0 06/05/2018 Active 0.25 MG Oral Tab mouth THREE TIMES DAILY NEEDED (anxiety). Max Daily Amount: 1.5 mg. Melatonin 3 MG Oral Take by mouth 0 Active Cap EVERY EVENING. ezetimibe (ZETIA) 10 Take 10 mg by 0 Active MG Oral Tab mouth DAILY. Glucose Blood (PRODIGY 1 Each by Topical 100 Each 5 10/06/2018 Active NO CODING BLOOD GLUC) route TWICE DAILY. In Vitro Strip Blood Glucose Monitor 1 Device by Does 1 Device 10/09/2018 Active Software Does not not apply route apply Device DIRECTED. E11.9 diabetes. Brand: Insurance preferred spironolactone TAKE ONE TABLET BY 60 Tab 5 10/12/2018 Active (ALDACTONE) 25 MG Oral MOUTH TWICE A DAY Tab Additional information Patient taking differently: 50 mg BID, Reported on 04/17/2019 1:34 PM metoprolol succinate (TOPROL XL) Take 1 Tab by mouth 90 Tab 3 10/25/2018 Active 50 MG Oral TABLET SR 24 DAILY. HRIndications: Paroxysmal atrial fibrillation (HCC) EPINEPHrine (EPIPEN 2-LUIS ALBERTO) 0.3 Inject 0.3 mg beneath 1 Each 0 11/01/2018 Active MG/0.3ML Injection Solution the skin NEEDED (bee Auto-injector stings). cholecalciferol (VITAMIN D) 1000 Take 1 Tab by mouth 30 Tab 5 11/20/2018 Active units Oral Tab DAILY. glipiZIDE (GLUCOTROL) 5 MG Oral TAKE 1/2 TABLET BY 30 Tab 5 11/24/2018 Active Tab MOUTH ONCE DAILY torsemide (DEMADEX) 20 MG Oral Take 3 Tabs by mouth 270 Tab 1 12/08/2018 Active Tab DAILY. Omeprazole 40 MG Oral CAPSULE TAKE ONE CAPSULE BY 90 Cap 1 12/13/2018 Active DELAYED RELEASE MOUTH EVERY DAY metFORMIN (GLUCOPHAGE) 500 MG TAKE ONE TABLET BY 60 Tab 3 02/19/2019 Active Oral Tab MOUTH TWICE A DAY WITH MEALS metolazone (ZAROXOLYN) 2.5 MG Take 1 Tab by mouth 30 Tab 1 02/21/2019 Active Oral TabIndications: Ischemic DAILY NEEDED (weight cardiomyopathy gain more than 3 lb). levothyroxine (SYNTHROID) 150 Take 150 mcg by mouth 0 Active MCG Oral Tab BEFORE BREAKFAST. atorvastatin (LIPITOR) 80 MG TAKE ONE TABLET BY 30 Tab 5 03/14/2019 Active Oral Tab MOUTH AT BEDTIME pregabalin (LYRICA) 50 MG Oral TAKE ONE CAPSULE BY 30 Cap 3 03/23/2019 Active Cap MOUTH AT BEDTIME, MAXIMUM DAILY DOSE = 1 amiodarone (PACERONE, CORDARONE) Take 0.5 Tabs by mouth 45 Tab 3 2018 Active 200 MG Oral TabIndications: DAILY. Persistent atrial fibrillation Additional information Patient taking differently: (No dose reported), Oral DAILY, Indications: pt only doing a 100mg, Reported on 04/09/2019 2:27 PM ramipril (ALTACE) 2.5 TAKE ONE CAPSULE 30 Cap 11 04/02/2019 Active MG Oral Cap BY MOUTH EVERY DAY Nutritional Take 1 Can by 30 Bottle 1 04/09/2019 Active Supplements (GLUCERNA mouth DAILY AT ADVANCE SHAKE) Oral 1400. Liquid Lancets (ONETOUCH USE TO TEST BLOOD 100 Each 1 04/23/2019 Active DELICA PLUS GLUCOSE LEVELS [id number]) Does not TWICE DAILY apply Misc OXYcodone-acetaminoph Take 1 Tab by 60 Tab 0 04/27/2019 Active en (PERCOCET) 5-325 mouth EVERY SIX MG Oral HOURS NEEDED TabIndications: (pain). Max Daily Injury of right knee, Amount: 4 Tabs. initial encounter benzonatate (TESSALON Take 1 Cap by 30 Cap 1 04/30/2019 Active PERLES) 100 MG Oral mouth THREE TIMES Cap DAILY NEEDED for cough. albuterol (PROVENTIL, INHALE 1 VIAL 300 mL 0 05/01/2019 Active VENTOLIN) (2.5 EVERY 4 HOURS VIA MG/3ML) 0.083% NEBULIZER Inhalation Nebu Soln NEEDED FOR SHORTNESS OF BREATH doxycycline Take 100 mg by 20 Tab 0 04/30/2019 Discontinued (VIBRAMYCIN) 100 MG mouth TWICE DAILY. 9 Oral Tab predniSONE Take 1 Tab by 7 Tab 0 04/30/2019 Discontinued (DELTASONE) 20 MG mouth DAILY. 9 Oral Tab documented as of this encounter (statuses as of 05/07/2019) Active Problems Problem Noted Date DVT (deep venous thrombosis) 12/09/2017 Clostridium difficile infection 12/09/2017 Cellulitis 12/09/2017 COPD (chronic obstructive pulmonary disease) 12/09/2017 Morbid obesity 08/25/2017 Diabetes mellitus type 2, without complication 07/01/2017 Paroxysmal atrial fibrillation 04/29/2016 S/P colostomy 05/13/2015 Overview: Loop transverse colostomy done 05/[address] [facility] BMI 40.0-44.9, adult 12/13/2012 Sleep apnea 02/16/2012 Overview: Oxygen through [facility]- 2 LMP q hs Atrial fibrillation with rapid ventricular response 01/27/2011 alf current use of anticoagulant therapy 01/13/2011 Overview: 01/13/2011 Patient was referred to [facility] for a Pulmonary embolism and atrial fibrillation Referred- , Duration - six months 06/2011, diagnosis- PE and A-Fib , INR GOAL- 1.5-2.[address] Tommy Tang LPN Update referral 12/2012, 02/2014, 09/2014, 04/2016, 01/2017 [...] artery disease) Overview: CATH- - 2006 in [place] (aortic stenosis) Overview: mild, 2009 PVD (peripheral vascular disease) Pulmonary embolism documented as of this encounter (statuses as of 05/07/2019) Immunizations Name Administration Dates Next Due Influenza (IM) Preservative Free 01/31/2017, 04/03/2014, 04/12/2013, [...] Sign Reading Time Taken Comments Blood Pressure 100/60 05/07/2019 3:07 PM EST Pulse 60 05/07/2019 3:07 PM EST Temperature 36.8 05/07/2019 3:07 PM C (98.2 EST F) Respiratory Rate - - Oxygen Saturation 95% 05/07/2019 3:07 PM EST Inhaled Oxygen Concentration - - Weight 120.3 kg (265 lb 3.2 oz) 05/07/2019 3:07 PM EST Height - - Body Mass Index 44.82 04/16/2019 2:28 PM EST documented in this encounter Patient Instructions Patient InstructionsKajal Simons MD - 05/07/2019 3:00 PM EST1. Schedule venous Doppler for tomorrow documented in this encounter Progress Notes Kajal Simons MD - 05/07/2019 3:00 PM EST Patient: Mercy Ziegler Date of Service: 05/07/2019 Subjective: Mercy Ziegler is a 68-y.o. female who presents for Chief Complaint Patient presents with Follow Up to COPD exacerbation , pt c/o right calf hurting Patient comes follow up COPD exacerbation Feels better: resolved cough, resolved wheezing Complains of pain and swelling in the R lower leg Has history of DVT. Not on anticoagulation due to recurrent GI bleedings Has IVC filter. Past Medical History: Diagnosis Date Anemia Anxiety (aortic stenosis) aortic valve replacement 2010, Asthma Atrial fibrillation, chronic after cardiac surgery Back pain CAD (coronary artery disease) CABG x1 COPD (chronic obstructive pulmonary disease) ([facility]) Coronary artery disease Depression Diabetes mellitus ([facility]) DVT (deep venous thrombosis) ([facility]) stenting of Left iliac vein, balloon angioplasty of iliac vein. Elevated cholesterol GERD (gastroesophageal reflux disease) Heart attack ([facility]) Hx of CABG 3 vessel Hypertension Hypothyroid Morbid obesity ([facility]) MR (mitral regurgitation) moderate 09/2014 Nephrolithiasis Osteoarthritis Left knee Pacemaker dual chamber PE (pulmonary embolism) Postmenopausal PVD (peripheral vascular disease) ([facility]) Sleep apnea Wrist fracture 07/01 Outpatient Medications as of 05/07/2019 Medication Sig Dispense Refill albuterol (PROVENTIL, VENTOLIN) (2.5 MG/3ML) 0.083% Inhalation Nebu Soln INHALE 1 VIAL EVERY 4 HOURS VIA NEBULIZER NEEDED FOR SHORTNESS OF BREATH 300 mL 0 albuterol HFA (VENTOLIN) 108 (90 Base) MCG/ACT Inhalation Aero Soln Take 2 Puffs by inhalation EVERY FOUR HOURS NEEDED (SOB). 1 Inhaler 5 Alcohol Swabs (PHARMACIST CHOICE ALCOHOL) Does not apply Pads TEST BLOOD SUGARS 2 TIMES [id number] Each PRN ALPRAZolam (XANAX) 0.25 MG Oral Tab Take 2 Tabs by mouth THREE TIMES DAILY NEEDED (anxiety). Max Daily Amount: 1.5 mg. 90 Tab 0 amiodarone (PACERONE, CORDARONE) 200 MG Oral Tab Take 0.5 Tabs by mouth DAILY. (Patient taking differently: Take by mouth DAILY. Indications: pt only doing a 100mg) 45 Tab 3 atorvastatin (LIPITOR) 80 MG Oral Tab TAKE ONE TABLET BY MOUTH AT BEDTIME 30 Tab 5 benzonatate (TESSALON PERLES) 100 MG Oral Cap Take 1 Cap by mouth THREE TIMES DAILY NEEDEDfor cough. 30 Cap 1 Blood Glucose Monitor Software Does not apply [...] route THREE TIMES DAILY. 100 Each 0 Lancets ([employer] DELICA PLUS [id number]) Does not apply Misc USE TO TEST BLOOD GLUCOSE LEVELSTWICE DAILY 100 Each 1 levothyroxine (SYNTHROID) 150 MCG Oral Tab Take 150 mcg by mouth BEFORE BREAKFAST. Melatonin 3 MG Oral Cap Take by mouth EVERY EVENING. metFORMIN (GLUCOPHAGE) 500 MG Oral Tab TAKE ONE TABLET BY MOUTH TWICE A DAY WITH MEALS 60 Tab3 metolazone (ZAROXOLYN) 2.5 MG Oral Tab Take 1 Tab by mouth DAILY NEEDED (weight gain more than 3 lb). 30 Tab 1 metoprolol succinate (TOPROL XL) 50 MG Oral TABLET SR 24 HR Take 1 Tab by mouth DAILY. 90 Tab3 Nutritional Supplements (GLUCERNA ADVANCE SHAKE) Oral Liquid Take 1 Can by mouth DAILY AT 1400. 30 Bottle 1 Omeprazole 40 MG Oral CAPSULE DELAYED RELEASE TAKE ONE CAPSULE BY MOUTH EVERY DAY 90 Cap 1 OXYcodone-acetaminophen (PERCOCET) 5-325 MG Oral Tab Take 1 Tab by mouth EVERY SIX HOURS NEEDED (pain). Max Daily Amount: 4 Tabs. 60 Tab 0 PHARMACIST CHOICE LANCETS Does not apply Misc TEST BLOOD SUGARS 2 TIMES DAILY 100 Each PRN pregabalin (LYRICA) 50 MG Oral Cap TAKE ONE CAPSULE BY MOUTH AT BEDTIME, MAXIMUM DAILY DOSE =1 30 Cap 3 ramipril (ALTACE) 2.5 MG Oral Cap TAKE ONE CAPSULE BY MOUTH EVERY DAY 30 Cap 11 sertraline (ZOLOFT) 100 MG Oral Tab Take 2 Tabs by mouth DAILY. 60 Tab 5 spironolactone (ALDACTONE) 25 MG Oral Tab TAKE ONE TABLET BY MOUTH TWICE A DAY (Patient taking differently: 50 mg TWICE DAILY.) 60 Tab 5 tiotropium (SPIRIVA HANDIHALER) 18 MCG Inhalation Cap Take 1 INHL by inhalation DAILY. 30 Cap5 torsemide (DEMADEX) 20 MG Oral Tab Take 3 Tabs by mouth DAILY. 270 Tab 1 No current facility-administered medications on file as of 05/07/2019. Allergies Allergen Reactions Bee Anaphylaxis Dye Intravenous Radiographic Imaging Contrast Hives Celebrex [Celecoxib] Hives Shellfish Allergy Rash Review of Systems: All remaining review of systems was negative. Objective: BP 100/60 (BP Location: Right arm, Patient Position: Sitting) Pulse 60 Temp 98.2 F (36.8 C) Wt 265 lb 3.2 oz (120.3 kg) SpO2 95% BMI 44.82 kg/m2 GENERAL: alert, fatigued THROAT: lips, mucosa, and tongue normal: teeth and gums normal NECK: supple, symmetrical, trachea midline LUNGS: clear to auscultation bilaterally HEART: regular rate and rhythm, S1, S2 normal, no murmur, click, rub or gallop EXTREMITIES: R lower leg - swelling tenderness in the R lower leg, venous stasis dermatitis. No redness or warmth ICD-9-CM ICD-10-CM 1. Pain of right lower leg 729.5 M79.661 VL LOWER EXTREMITY DUPLEX VEINS RIGHT 2. Renal insufficiency 593.9 N28.9 RENAL FUNCTION PANEL 3. COPD exacerbation ([facility]) 491.21 J44.1 Patient Instructions 1. Schedule venous Doppler for tomorrow Follow up by results of the test Author: Kajal Simons MD documented in this encounter Plan of Treatment Date Type Specialty Care Team Description 12/10/2017 Ancillary Procedure Radiology Arrived 05/08/2019 Ancillary Procedure Radiology 06/18/2019 Office Visit Cardiology Berny Sanders MD [address] [place] [address] [phone] 08/24/2019 [facility] 10/22/2019 Ancillary Procedure Radiology 10/22/2019 Ancillary Procedure Radiology 10/22/2019 Office Visit Vascular Surgery Flo Dominguez MD [address] [address] Name Type Priority Associated Diagnoses Order Schedule VL LOWER EXTREMITY Imaging Routine Pain of right lower leg Expected: 2018, DUPLEX VEINS RIGHT Expires: 07/05/2020 Health Maintenance Due Date Last Done Comments DTaP/Tdap/Td Vaccines (1 - 1961 Tdap) OSTEOPOROSIS SCREENING 11/24/2015 PNEUMOCOCCAL 65+YRS (2 of 2 08/21/2018 03/05/2015, 08/21/2013 - PPSV23) HEMOGLOBIN A1C 07/30/2019 01/29/2019, 07/26/2018, 12/10/2017, Additional history exists DEPRESSION SCREENING 11/02/2019 11/01/2018 FALL RISK ASSESSMENT 11/02/2019 11/01/2018, 11/01/2018 MEDICARE ANNUAL WELLNESS 11/02/2019 11/01/2018, 05/12/2016, VISIT 05/12/2016, Additional history exists FOOT EXAM 01/30/2020 01/29/2019, 01/29/2019, 02/01/2018 LIPID DISORDER SCREENING 03/14/2020 03/14/2019, 07/26/2018, 02/21/2018, Additional history exists MAMMOGRAM (SCREENING) 04/02/2020 04/02/2019, 02/21/2018, 01/22/2016, Additional history exists ZOSTER IMMUNIZATION SERIES 04/17/2020 Postponed from (1 of 2) 2000 (Vaccine not available) Diabetic Eye Exam 11/09/2020 11/09/2018, 11/09/2018 Colonoscopy 08/24/2022 08/24/2017, 08/24/2017, 12/22/2016, Additional history exists INFLUENZA VACCINE Completed 01/29/2019, 02/01/2018, 01/31/2017, Additional history exists HEPATITIS A IMMUNIZATION Aged Out No longer eligible SERIES based on patient's age to complete this topic HPV IMMUNIZATION SERIES Aged Out No longer eligible based on patient's age to complete this topic MENINGOCOCCAL VACCINE IMM Aged Out No longer eligible based on patient's age to complete this topic documented as of this encounter Goals Goal Patient Goal Associated Recent Patient-Stated? Author Type Problems Progress Blood Pressure Blood Pressure HTN 100/60 No [place], < 140/90 (hypertension) (05/07/2019 Kajal, 3:07 PM EST) Note: Hypertension Care Plan Based on the [...] Educational Resources. record my blood pressure results. [employer] is safe and secure way for you to do this in your medical record online. limit alcohol consumption. For men two drinks per day and women one drink per day. if currently smoking, will discuss how to quit smoking with my healthcare provider and work towards quitting. Educational Resources: National Heart, Lung, & Blood [place] http://nhlbi.nih.gov/hbp/index.html The DASH Diet Eating Plan http://www.nhlbi.nih.gov/health/health-topics/ topics/dash/ Academy of Nutrition & DIetetics http://eatright.org National Smoking Cessation Site http://smokefree.gov Blood Pressure < Blood Pressure 100/60 (05/07/2019 No Kajal Simons, 140/90 3:07 PM EST) Note: This is an individualized treatment (blood pressure) goal for Mecry Ziegler : Displayed above (on the left) is your goal for blood pressure control. Your most recent blood pressure is also shown above, on the right. You should try to achieve blood pressures that are lower than your goal listed above (on the left). Weight increase vs. 18 CHF 41 (05/07/2019 3:07 PM Kajal Mistry MD mo min (lbs) < 5 EST) Note: This is an individualized treatment (congestive [...] screen (PHQ-9) total score < 5 Depression No Kajal Simons MD Note: This is an individualized treatment (depression) goal for Mercy Ziegler: Displayed above is your goal for a depression screening (PHQ-9) score that would indicate good control of your depression. Glycohemoglobin A1c < 7.0 Diabetes 6.4 (01/29/2019 3:08 No Kajal Simons, PM EDT) Note: This is an individualized treatment (diabetes [...] with some symptoms of depression. Consume a [id number]-ogjrr-[id number] diet Lifestyle No Kajal Simons MD Note: This is an individualized lifestyle goal for Mercy Ziegler: Please do not add additional salt to [...] of this encounter Implants Implanted Type Area Parts And Service Manager Device Shelf Model / Identifier Expiration Serial / Date Lot Stanley Cup Left: Hip DEPUY [id number] / Implanted: Qty: 1 on 06/09/2010 at [facility] / [id number] Stanley Altrx Liner Left: Hip DEPUY [id number] / Implanted: Qty: 1 on 06/09/2010 at [facility] / [id number] Hole Eliminator Left: Hip DEPUY [id number] / Implanted: Qty: 1 on 06/09/2010 at [facility] / [id number] Trilock Femoral Stem Left: Hip DEPUY [id number] / Implanted: Qty: 1 on 06/09/2010 at [facility] / [id number] Metal On Metal Head Left: Hip DEPUY [id number] / Implanted: Qty: 1 on 06/09/2010 at [facility] / [id number] Aortic Magna Haleigh 21mm - [id number] Heart [employer] [id number] / Implanted: Qty: 1 on 12/15/2010 at [facility] [employer] / [id number] documented as of this encounter Procedures Procedure Name Priority Date/Time Associated Diagnosis Comments RENAL FUNCTION Routine 05/07/2019 3:51 Renal insufficiency Results for this PANEL PM EST procedure are in the results section. documented in this encounter Results RENAL FUNCTION PANEL (05/07/2019 3:51 PM EST) Sodium 135 134 - 145 mmol/L [facility] Potassium 4.0 3.5 - 5.1 mmol/L [facility] Chloride 92 (L) 98 - 107 mmol/L [facility] CO2 34 (H) 22 - 30 mmol/L [facility] Glucose 81 70 - 99 mg/dl [facility] Creatinine 1.8 (H) 0.7 - 1.2 mg/dl [facility] BUN 90 (H) 7 - 17 mg/dl [facility] Calcium 9.2 8.3 - 10.1 mg/dl [facility] Albumin 4.0 3.5 - 5.0 g/dl [facility] Phosphorus 4.0 2.5 - 4.5 MG/DL [facility] eGFR 28 See Interpretation [facility] Comment: Below ml/min/1.73ml GROUP Estimated GFR Interpretation: Sq LABORATORY Above 60ml/min/1.73m2 = Normal Renal Function 30-59 ml/min/1.73m2 = Stage 3 Chronic Kidney Disease 15-29 ml/min/1.73m2 = Stage 4 Chronic Kidney Disease Less than 15 ml/min/1.73m2 = Stage 5 Chronic Kidney Disease The GFR value is calculated using the Modification of Diet in Renal Disease ( MDRD) Study Equation which can be found at: https://www.kidney.org/content/rmjk-xxsnc-gqgkcyjw BUN/Creatinine 50 (H) 6 - 22 RATIO [facility] LABORATORY Anion Gap 9 3 - 11 mmol/L [facility] Specimen Blood - Blood specimen (specimen) Performing Organization Address City/State/Zipcode Phone Number [facility] [address] [address] documented in this encounter Visit Diagnoses Diagnosis Pain of right lower leg Pain in limb Renal insufficiency Unspecified disorder of kidney and ureter COPD exacerbation (HCC) Obstructive chronic bronchitis with exacerbation documented in this encounter Insurance Payer Benefit Plan / Subscriber ID Effective Dates Phone Address Type Group AETNA MEDICARE AETNA MEDICARE xxxxxxxx Effective for all [employer] ADVANTAGE ADVANTAGE dates (Home) [facility] [phone] (Work) [place] [address] documented as of this encounter Advance Directives Code Status Date Activated Date Inactivated Comments Full Code 12/09/2017 11:47 PM 12/12/2017 2:51 PM Does patient have decision making capacity? yes Order discussed with: Patient I discussed all options and patient/surrogate requested and agreed to: Full Code
--- OUTSIDE RECORDS SUMMARY | 2019-05-29 12:05 | XMS REPORT ---
:1950 Author Organization [facility] Care Team Providers Name Role Phone Unavailable [...]
--- OUTSIDE RECORDS SUMMARY | 2019-05-29 12:05 | XMS REPORT ---
:1950 Author Organization [facility] Care Team Providers Name Role Phone Unavailable [...]
--- OUTSIDE RECORDS SUMMARY | 2019-05-29 12:05 | XMS REPORT ---
:1950 Author Organization [facility] Care Team Providers Name Role Phone Unavailable [...]
[2019-05-29 12:19] LABS: ABS Basophils 0.1 10^3/ul (0-0.2); ABS Eosinophils 0.3 10^3/ul (0-0.6); ABS Lymphocytes 1.4 10^3/ul (1.0-4.8); ABS Monocytes 0.7 10^3/ul (0-0.8); ABS Neutrophils 4.6 10^3/ul (1.5-7.7); Eosinophil % 4.9 %; Hematocrit 30 % (35-47); Hemoglobin 9.1 g/dL (12.0-16.0); Lymphocyte % 19.4 %; Mean Corpuscular HGB Conc 31 g/dL (31-36); Mean Corpuscular Hemoglobin 24 pg (27-31); Mean Corpuscular Volume 77 fL (80-97); Mean Platelet Volume 8.1 fL (7.4-10.4); Nucleated Red Blood Cells % 0.2; Platelet Count 219 10^3/uL (150-450); Red Blood Count 3.85 10^6 /uL (3.70-4.87); Red Cell Distribution Width 20 % (10-15)
[2019-05-29 12:27] LABS: Albumin 3.4 g/dL (3.2-5.2); Albumin/Globulin Ratio 1.1 (1-3); BUN/Creatinine Ratio 22.4 (8-20); C Reactive Protein 1.97 mg/L (<8.01); Calcium 8.1 mg/dL (8.6-10.3); EGFR African American 42.8 (>60); EGFR Non-African American 35.3 (>60); Globulin 3.2 g/dL (2-4); Potassium 3.9 mmol/L (3.5-5.0); Total Bilirubin 0.5 mg/dL (0.2-1.0); Total Protein 6.6 g/dL (6.4-8.9)
[2019-05-29 12:28] LABS: Troponin I 0.01 ng/mL (<0.03)
[2019-05-29 13:12] LABS: Urine Appearance Cloudy; Urine Bilirubin Negative (Negative); Urine Blood Negative (Negative); Urine Color Yellow; Urine Glucose Negative (Negative); Urine Ketones Negative (Negative); Urine Nitrite Negative (Negative); Urine Protein Negative (Negative); Urine Specific Gravity 1.012 (1.010-1.030); Urine Urobilinogen Negative (Negative)
[2019-05-29 13:21] LABS: Urine Bacteria 1+ (Absent); Urine Red Blood Cell Trace(0-2/hpf) (Absent); Urine Squamous Epithelial Cell Present (Absent); Urine White Blood Cell 2+(11-20/hpf) (Absent)
[2019-05-29] MEDS ORDERED: oxyCODONE TAB* 5 MG TAB PO ONE (14:00)
[2019-05-29] MEDS ORDERED: Albuterol/Ipratropium NEB.SOL* Albuterol 2.5 MG/Ipratropium 0.5 MG 3 ML INH ONE (14:01)
[2019-05-29] MEDS ORDERED: methylPREDNISolone 125 MG* 2 ML VIAL IV ONE (14:01)
[2019-05-29] MEDS ORDERED: Furosemide IV* 10 MG/ML 2 ML VIAL (20 MG) IV ONE (15:07)
[2019-05-29] MEDS ORDERED: Furosemide IV* 10 MG/ML VIAL (40 MG) IV ONE (15:08)
[2019-05-29 16:31] VITALS: BP 128/68
--- NOTE | 2019-05-29 17:39 | CONS ---
[facility] MEDICINE CONSULTATION REPORT: DATE OF CONSULT: 05/29/19 PROVIDER: Chanelle Moon NP ATTENDING PHYSICIAN: Dr. Echols, emergency room. CONSULTING PHYSICIAN: Dr. Sena Neely (dictated by Chanelle Moon NP). REASON FOR CONSULT: Leg pain. HISTORY OF PRESENT ILLNESS: Ms. 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 The patient reports that she has had pain in her legs x2 weeks. She does report it as throbbing in nature. She reports that she went to [facility] yesterday and when she returned home she noticed that she had increased swelling in her legs. The patient reports that she elevated her legs overnight with no change in the swelling. Her daughter came to see her today and saw the swelling in her legs and so she was brought to the emergency room for further evaluation. The patient denies any recent fever or chills. Denies any change in her cough. She reports her breathing is at baseline. She denies any nausea or vomiting. She does report some loose stools in her ostomy. She denies any black or tarry stools. She denies any acute changes in her abdomen or any acute abdominal pain. She does report increased swelling to bilateral lower extremities and pain to bilateral lower extremities worse overnight, but pain x2 weeks. She denies any urinary frequency, urgency, or pain with urination. She denies any weakness on one side or any sensory loss. She denies any dizziness or lightheadedness. While in the emergency room, the patient had routine lab work and she had a chest x-ray which showed pulmonary edema. She does have ultrasound of her bilateral lower extremities, which shows chronic DVT in the left lower leg and possible DVT in the right leg. Due to the patient's swelling and chest x-ray concerning for pulmonary edema, Hospital Medicine was asked to see and consult for admission. PAST MEDICAL HISTORY: Significant for: 1. Bowel obstruction due to diverticular disease, status post ostomy. 2. Paroxysmal atrial fibrillation, with preserved ejection fraction. 3. AV malformation with multiple GI bleeds. 4. Parastomal hernia. 5. Nephrolithiasis. 6. May-Thurner syndrome, status post IVC filter. 7. Coronary artery disease. 8. Type 2 diabetes. 9. Hypertension. 10. Depression. 11. Chronic pain. 12. History of DVT. 13. COPD. 14. Chronic hypoxic respiratory failure, on 2 L of oxygen at all times. PAST SURGICAL HISTORY: 1. Colostomy. 2. IVC filter placement. 3. Pacemaker. 4. Aortic valve replacement. HOME MEDICATIONS: Include: 1. Albuterol nebulizer every 4 hours as needed for shortness of breath. 2. Albuterol inhaler 2 puffs every 4 hours as needed for shortness of breath. 3. Alprazolam 0.25 mg 2 tablets by mouth 3 times a day as needed for anxiety. 4. Amiodarone 200 mg p.o. daily. 5. Atorvastatin 80 mg p.o. daily. 6. Vitamin D 1000 units p.o. daily. 7. Epinephrine 0.3 mg as needed for bee stings. 8. Fluticasone 2 puffs inhaled twice daily. 9. Glipizide 2.5 mg p.o. daily. 10. Levothyroxine 175 mcg p.o. daily. 11. Melatonin 3 mg p.o. nightly. 12. Metformin 500 mg p.o. b.i.d. with meals. 13. Metolazone 2.5 mg p.o. daily. 14. Metoprolol succinate 50 mg p.o. daily. 15. Mupirocin ointment 1 application to abdomen daily. 16. Omeprazole 40 mg p.o. daily. 17. Percocet 5/325 one tablet every 6 hours as needed for pain. 18. Pregabalin 50 mg p.o. daily. 19. Ramipril 2.5 mg p.o. daily. 20. Sertraline 200 mg p.o. daily. 21. Spironolactone 25 mg p.o. daily. 22. Spiriva 1 inhaled p.o. daily. 23. Torsemide 60 mg p.o. daily. 24. Zetia 10 mg p.o. daily. ALLERGIES: 1. BEE VENOM. 2. SHELLFISH. 3. IV CONTRAST MEDIA. 4. CELEBREX. FAMILY HISTORY: Mother at age 70 of heart disease. Father in MVA. Brother of an AL and son in his 50s of an AL. SOCIAL HISTORY: The patient quit smoking 4 years ago. The patient denies any alcohol or illicit drug use. She is disabled. She has 5 children. Surrogate decision maker in the event she is unable to make her own decisions is her daughter, Manuela Carr. She is a full code. REVIEW OF SYSTEMS: A 14-point review of systems was completed. All pertinent positives were mentioned in the HPI. Otherwise were negative. PHYSICAL EXAM: General: At this time, Ms. Ziegler is a 68-year-old female. She is alert and oriented, resting on the stretcher in the emergency room. She is in no acute distress. Vital Signs: Blood pressure 134/51, heart rate 60, respirations are 20, O2 saturation 100% with 2 L nasal cannula, temperature was 97.6. HEENT: Head is atraumatic, normocephalic. Eyes: EOMs are intact. Sclerae anicteric and not pale. Oral mucosa is moist. Neck is supple. Lungs are clear to auscultation with fine crackles in the bases bilaterally. Cardiac : S1, S2. Regular rate and rhythm. No rubs or gallops. Pedal pulses are +2 bilaterally. Abdomen is obese, soft, nontender. Large parastomal hernia is noted. Bowel sounds are active x4. Skin: She does have some redness noted to bilateral lower extremities, right worse than left; warm to touch. Neurologic: She is awake, alert, oriented x3. Speech is clear. Thought process is intact. There are no gross focal deficits. DIAGNOSTIC STUDIES/LAB DATA: WBCs are 7, RBCs 3.85, hemoglobin 9.1, hematocrit is 30, platelet count was 219. APTT was 28.5. Sodium 137, potassium 3.9, chloride 101, carbon dioxide was 20, anion gap was 8, BUN was 33, creatinine 1.47, calcium was 8.1, lactic acid 1.7. ASTs were 15, ALTs were 14, alkaline phosphatase was 88. Troponin was 0.01, C-reactive protein 1.97, BNP was 565. Urine was within normal limits with exception leukocyte esterase was trace, wbc' s were 2+, urine rbc's were trace, squamous epithelial cells were present, bacteria was 1+. She had a chest x-ray, radiologist's impression: Pulmonary edema, COPD. She had an electrocardiogram, which showed sinus rhythm at a rate of 60 with occasional paced beat. She had a venous Doppler of bilateral lower extremities, radiologist's impression: Limited study, nonocclusive thrombus of the left common femoral vein and femoral vein, possible nonocclusive thrombus of the right peroneal vein. ASSESSMENT AND PLAN: Ms. Ziegler is a 68-year-old female with a complex past medical history significant for diverticular disease, status post ostomy placement; history of heart failure with preserved ejection fraction; aortic valve replacement; paroxysmal atrial fibrillation; coronary artery disease; history of chronic kidney disease, who was brought to the emergency room with complaints of bilateral lower extremity pain and swelling. Our recommendations are as follows: 1. Bilateral lower extremity edema. The patient was given 60 mg of IV Lasix in the emergency room. I will increase her torsemide to 80 mg p.o. x3 days. She should have a repeat BMP on Tuesday. I suspect that her lower extremity edema is related to volume overload. The patient should follow up with her primary care provider in 4 to 7 days. 2. Mild cellulitis. She does appear to have mild cellulitis to bilateral lower extremities, right worse than left. I would recommend Keflex 500 mg p.o. b.i.d. for 5 days. 3. Other chronic medical conditions. The patient should resume all of her previous medications as previously prescribed. At this time, I feel the patient is stable for discharge home with increasing her medications. She should continue with daily weights and follow up with her primary care provider this week. As the patient is currently on her baseline home oxygen with oxygen saturations at 98% to 100% on 2 L nasal cannula, the patient is in no acute respiratory distress requiring hospitalization at this time. I have discussed this with my attending, Dr. Sena Neely; she is in agreement with my plan. CHANELLE MOON, ACCOUNTS RECEIVABLE ANALYST [id number]/[facility] #: [id number] SERENA
--- NOTE | 2019-05-31 11:08 | ED ---
Imaging and Labs Follow Up Follow Up Type: Labs/Cultures Labs/Culture Result: Urine culture preliminary shows 10-25,000 Escherichia coli, 1-10,000 normal eli. Patient Communication/Plan: Symptoms considered contaminated. Nothing further at this time. Provider Diagnoses: CHF (congestive heart failure), Lower extremity edema, Cellulitis
== END 2019-05-29 16:17 | disposition home or self-care (01) ==
LOC: ED 11:26
DX: I11.0 Hypertensive heart disease with heart failure (principal); I50.9 Heart failure, unspecified; R60.0 Localized edema; L03.116 Cellulitis of left lower limb; L03.115 Cellulitis of right lower limb; I82.412 Acute embolism and thrombosis of left femoral vein; E11.9 Type 2 diabetes mellitus without complications; Z79.84 Long term (current) use of oral hypoglycemic drugs; J44.9 Chronic obstructive pulmonary disease, unspecified; J96.11 Chronic respiratory failure with hypoxia; Z99.81 Dependence on supplemental oxygen; Z79.01 Long term (current) use of anticoagulants; E34.0 Carcinoid syndrome; K21.9 Gastro-esophageal reflux disease without esophagitis; Z93.3 Colostomy status; Z95.810 Presence of automatic (implantable) cardiac defibrillator; Z95.2 Presence of prosthetic heart valve; Z95.1 Presence of aortocoronary bypass graft; Z88.8 Allergy status to other drugs, medicaments and biological substances; Z91.030 Bee allergy status; Z91.041 Radiographic dye allergy status; Z91.013 Allergy to seafood; Z82.49 Family history of ischemic heart disease and other diseases of the circulatory system; Z87.891 Personal history of nicotine dependence; Z96.642 Presence of left artificial hip joint
CPT/HCPCS: 36415; 71046; 80053; 81003; 81015; 83605; 83880; 84484; 85025; 85730; 86140; 87077; 87086; 87186; 93005; 93970; 96374; 96375; 99284; A9270-GY; J1940; J2930

== ENCOUNTER 2019-05-31 11:06 | Emergency (ER) | payer MEDICARE, OTHER ==
--- NOTE | 2019-05-31 11:40 | ED ---
GI/ HPI - HPI Summary HPI Summary: The patient is a 68 year old female arriving by ambulance to [facility] emergency department with a chief complaint of bleeding from her colostomy bag this morning. She reports that she was cleaning out the colostomy bag today and noticed celia blood where the bag is placed. There is no blood in the stool. She [place] [address] Jackson for a bowel obstruction. She endorses a fever of 101F last night. She also notes that she has been short of breath this morning, but she has a history of COPD with chronic cough. Symptoms rated 8/10 in severity. Past medical history significant for diabetes, thyroid disease, anemia, atrial fibrillation, cardiac arrest, CHF, CAD, DVT, hyperlipidemia, hypertension, pacemaker, peripheral vascular disease, CABG, asthma, pulmonary embolism, sleep apnea, diverticulosis, GERD, GI bleed, hiatal hernia, kidney stones, cholecystectomy, MRSA. Former smoker, rare alcohol use, no substance use. Medications reviewed. Allergies noted. - History of Current Complaint Chief Complaint: EDGIBleed Time Seen by Provider: 05/31/19 11:24 Stated Complaint: BLOOD IN COLOSTOMY BAG PER EMS Hx Obtained From: Patient Onset/Duration: Started Hours Ago, Still Present Timing: Constant Severity: Moderate Pain Intensity: 8 Associated Signs and Symptoms: Positive: Fever, Other: - bleeding from colostomy bag, shortness of breath. Negative: Cough Aggravating Factor(s): Nothing Alleviating Factor(s): Nothing - Additional Pertinent History Primary Care Physician: CARROLL - Allergy/Home Medications Allergies/Adverse Reactions: Allergies Allergy/AdvReac Type Severity Reaction Status Date / Time bee venom protein (honey bee) Allergy Severe Rash Verified 05/31/19 11:25 shellfish derived Allergy Severe Hives Verified 05/31/19 11:25 Iodinated Contrast Media Allergy Intermediate Hives Verified 05/31/19 11:25 [Iodinated Contrast- Oral and IV Dye] celecoxib Allergy Hives Verified 05/31/19 11:25 PMH/Surg Hx/FS Hx/Imm Hx Endocrine/Hematology History: Reports: Hx Anticoagulant Therapy - Xarelto, Hx Diabetes, Hx Thyroid Disease, Hx Anemia, Other Endocrine/Hematological Disorders - 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, causing DVTs) Cardiovascular History: Reports: Hx Atrial Fibrillation, Hx Cardiac Arrest, Hx Congestive Heart Failure, Hx Coronary Artery Disease, Hx Deep Vein Thrombosis, Hx Hypercholesterolemia, Hx Hypotension, Hx Hypertension, Hx Pacemaker/ICD - PACEMAKER 03/09/18, Hx Peripheral Vascular Disease, Hx Valvular Heart Disease, Other Cardiovascular Problems/Disorders - valve replacement, CABG Respiratory History: Reports: Hx Asthma, Hx Chronic Obstructive Pulmonary Disease (COPD), Hx Pneumonia, Hx Pulmonary Embolism, Hx Sleep Apnea, Other Respiratory Problems/Disorders - home o2, 2.5L GI History: Reports: Hx Diverticulosis, Hx Gall Bladder Disease, Hx Gastroesophageal Reflux Disease, Hx Gastrointestinal Bleed - 08/22/16 admission, Hx Hiatal Hernia - ventral hernia, Other GI Disorders - DIVERTICULITIS, SBO with colostomy, bowel AVM's History: Reports: Hx Kidney Stones, Hx Renal Disease - KIDNEY STONES Denies: Hx Dialysis, Other Problems/Disorders Musculoskeletal History: Reports: Hx Arthritis - legs and shoulders, Hx Back Problems, Hx Bursitis, Hx Scoliosis, Other Musculoskeletal History - Left hip replacement Denies: Hx Osteoporosis Sensory History: Reports: Hx Contacts or Glasses Denies: Hx Deafness, Hx Hearing Aid Opthamlomology History: Reports: Hx Contacts or Glasses Neurological History: Denies: Hx Dementia, Hx Developmental Delay, Hx Headaches, Hx Migraine, Hx Nerve Disease, Hx Seizures, Hx Spinal Cord Injury, Hx Transient Ischemic Attacks (TIA), Other Neuro Impairments/Disorders Psychiatric History: Reports: Hx Anxiety, Hx Depression Denies: Hx Panic Disorder, Hx Substance Abuse - Cancer History Cancer Type, Location and Year: none - Surgical History Surgical History: Yes Surgery Procedure, Year, and Place: TUBAL LIGATION 1979, [facility] , CHOLECYSTECTOMY [facility], 2008, KIDNEY STONES REMOVED 1998, [facility], TRIPLE BYPASS, HEART VALVE REPLACEMENT 2010, [facility], LEFT HIP REPLACED, 2009, [facility]. TONSILECTOMY A CHILD. COLOSTOMY 2015, IVC filter. pacemaker 2018 Hx Anesthesia Reactions: No - Immunization History Date of Tetanus Vaccine: Up to date Date of Influenza Vaccine: 2019 Immunizations Up to Date: Yes Infectious Disease History: No Infectious Disease History: Reports: Hx of Known/Suspected MRSA - 08/22/16 [facility] + MRSA nares, Hx Shingles Denies: Hx Hepatitis, Hx Human Immunodeficiency Virus (HIV), Traveled Outside the [place] in Last 30 Days - Family History Known Family History: Positive: Cardiac Disease, Other - neg: anesthesia reaction - Social History Alcohol Use: None Hx Substance Use: No Substance Use Type: Reports: None Hx Tobacco Use: Yes Smoking Status (MU): Former Smoker Type: Cigarettes Have You Smoked in the Last Year: No Review of Systems Positive: Fever - 101F (resolved) Positive: Shortness Of Breath. Negative: Cough Positive: Other - bleeding from colostomy bag All Other Systems Reviewed And Are Negative: Yes Physical Exam - Summary Physical Exam Summary: VITAL SIGNS: Reviewed. GENERAL: Patient is a well-developed but obese female who is lying comfortable in the stretcher. Patient is not in any acute respiratory distress. HEAD AND FACE: No signs of trauma. No ecchymosis, hematomas or skull depressions. No sinus tenderness.. EYES: PERRLA, EOMI x 2, No injected conjunctiva, no nystagmus. EARS: Hearing grossly intact. Ear canals and tympanic membranes are within normal limits. MOUTH: Oropharynx within normal limits. NECK: Supple, trachea is midline, no adenopathy, no JVD, no carotid bruit, no c- spine tenderness, neck with full ROM. CHEST: Symmetric, no tenderness at palpation. LUNGS: Slight wheezing. No crackles. CVS: Regular rate and rhythm, S1 and S2 present, no murmurs or gallops appreciated. ABDOMEN: Soft, non-tender. No signs of distention. No rebound, no guarding, and no masses palpated. Bowel sounds are normal. Colostomy bag in the lower abdomen. Slight sore in the left side of the colostomy bag around 3 oclock and 6 oclock with some redness and blood. Colostomy has green stool without any blood or blood clots, no black stool. EXTREMITIES: FROM in all major joints, no edema, no cyanosis or clubbing. NEURO: Alert and oriented x 3. No acute neurological deficits. Speech is normal and follows commands. SKIN: Dry and warm. Triage Information Reviewed: Yes Vital Signs On Initial Exam: Initial Vitals Temp Pulse Resp BP Pulse Ox 97.4 F 65 24 129/60 98 05/31/19 11:05/31/19 11:05/31/19 11:05/31/19 11:05/31/19 11:09 Vital Signs Reviewed: Yes Procedures - Sedation Patient Received Moderate/Deep Sedation with Procedure: No Diagnostics - Vital Signs Vital Signs Temp Pulse Resp BP Pulse Ox 05/31/19 11:19 64 17 121/52 100 05/31/19 11:14 66 98 05/31/19 11:12 66 129/60 99 05/31/19 11:09 97.4 F 65 24 129/60 98 - Laboratory Result Diagrams: 05/31/19 11:46 05/31/19 11:47 Lab Statement: Any lab studies that have been ordered have been reviewed, and results considered in the medical decision making process. - Radiology Chest X-Ray Radiology Interpretation Completed By: Radiologist Summary of Radiographic Findings: Impression: Cardiomegaly with interstitial edema consistent with CHF. ED physician has reviewed this report. - EKG 1214 Cardiac Rate: NL - 60 bpm EKG Rhythm: Sinus Rhythm Summary of EKG Findings: An EKG at 1214 reveals normal sinus rhythm at 60 bpm[address]. No ST elevations. ED physician has reviewed and interpreted this EKG. Re-Evaluation - Re-Evaluation First Eval Re-Evaluation Time: 15:35 Comment: Patient declines Torsemide because she already took hers today. Second Eval Re-Evaluation Time: 16:15 Comment: Patient has decided she wants to leave against medical advice. All risks and benefits discussed with the patient and her family. They still agree with leaving AMA. GIGU Course/Dx - Course Assessment/Plan: The patient is a 68 year old female arriving by ambulance to [facility] emergency department with a chief complaint of bleeding from her colostomy bag this morning. She reports that she was cleaning out the colostomy bag today and noticed celia blood where the bag is placed. There is no blood in the stool. She [place] [address] Jackson for a bowel obstruction. She endorses a fever of 101F last night. She also notes that she has been short of breath this morning, but she has a history of COPD with chronic cough. Symptoms rated 8/10 in severity. Past medical history significant for diabetes, thyroid disease, anemia, atrial fibrillation, cardiac arrest, CHF, CAD, DVT, hyperlipidemia, hypertension, pacemaker, peripheral vascular disease, CABG, asthma, pulmonary embolism, sleep apnea, diverticulosis, GERD, GI bleed, hiatal hernia, kidney stones, cholecystectomy, MRSA. Former smoker, rare alcohol use, no substance use. Medications reviewed. Allergies noted. Blood work without any significant abnormality except for hemoglobin of 8.8 and hematocrit of 28, which is consistent with her baseline, BUN of 46, creatinine of 1.58, glucose of 142, and CRP of 8.9. I believe that the BUN and creatinine are elevated secondary to relative dehydration. Therefore, the patient was given IV fluids for dehydration. She was wheezing slightly; therefore, she was given a DuoNeb. She has a history of COPD. CXR impression: Cardiomegaly with interstitial edema consistent with CHF. CXR shows CHF, and she was offered Demadex 80 mg but patient declined. I discussed the possibility of discharging the patient home and the patient agreed. However, when the patients daughter arrived, she was very agitated, belligerent, disrespectful to the nurses and the patient. The patient became very agitated, more short of breath, and also she reported that time that she is unable to care for herself at home. At this time, I had social work speak with the patient; however, the patient is pretty upset and did not want to speak with anyone. At this point, I talked to the patient, and she reports that she is unable to care for herself therefore, she will accept admission to the hospital. I discussed my physical exam and findings with Dr. Schafer, who accepted the patient for admission. Ms. Fragoso, nurse practitioner for Dr. Schafer, interviewed the patient for admission, and the patient changed her mind and wants to go home. Therefore, I spoke with the patient again, but she wants to go home. The patient was signing AGAINST MEDICAL ADVICE. I extensively discussed with the patient the benefits and risks of leaving AMA. I also discussed the alternatives to leaving AMA, however, the patient still insists to leave the hospital AMA. The patient is clinically sober , free from distracting injury, appears to have intact insight, judgment, and reason, and in my opinion has the capacity to make decisions. Patient has full capacity and is cognitively intact. The patient presents with SOB, falls, I have explained that I am concerned with -those symptoms and may represent CHF and COPD exacerbation, ACS, . The patient verbalizes understanding of my concerns. I have also explained the results of the labs and even though they are normal for her baseline. The primary nurse and the charge nurse also strongly recommended that the patient should not leave AMA. Patient understands the risks of leaving AMA, which includes but is not restricted to . Patient signed the AMA form. Patient was also advised to return to ED if he changes his mind or if the symptoms worsen or other symptoms appear. Patient understands and agrees. Again, I discussed all the findings and test results with the patient. Patient was instructed to return to the emergency room immediately if any of the symptoms return or worsen. Plan of care was discussed with the patient and understands and agrees. All questions were answered at patient satisfaction. There were no further complaints or concerns. Patient signed AMA and he was discharged AMA. - Diagnoses Provider Diagnoses: SOB (shortness of breath), COPD (chronic obstructive pulmonary disease), Diastolic CHF, ALEXIS (acute kidney injury), Dehydration - Physician Notifications Discussed Care Of Patient With: Tabby Goff - social work Time Discussed With Above Provider: 14:30 Instructed by Provider To: Other - Tabby spoke with the patient and her family. The patient prefers to stay in the hospital secondary to the swelling in her legs despite taking Lasix at home. I discussed the patient's case with Dr. Schafer, hospitalist, who accepts the patient for admission at 1500. Hospitalist services has spoken with the patient, but the patient has now decided she wants to leave AMA. Discharge ED - Sign-Out/Discharge Documenting (check all that apply): Patient Departure - Patient leaving against medical advice. - Discharge Plan Condition: Stable Disposition: AGAINST MEDICAL ADVICE Patient Education Materials: Colostomy Care (ED), COPD (Chronic Obstructive Pulmonary Disease) (ED), Shortness of Breath (ED) Referrals: Kajal Simons MD [Primary Care Provider] - 3 Days Additional Instructions: Follow up with your primary care provider in 2-3 days. Return to the emergency department for any new or worsening symptoms. - Billing Disposition and Condition Condition: STABLE Disposition: Against Medical Advice - Attestation Statements Document Initiated by Meaghanibprincess: Yes Documenting Scribe: Bernice Medellin Provider For Whom Sary is Documenting (Include Credential): Dr. Jace Echols MD Scribe Attestation: Bernice Love scribed for Dr. Jace Echols MD on 05/31/19 at 2153. Scribe Documentation Reviewed: Yes Provider Attestation: The documentation as recorded by the Bernice nowak accurately reflects the service I personally performed and the decisions made by me, Dr. Jace Echols MD Status of Scribe Document: Viewed
[2019-05-31 12:05] LABS: ABS Basophils 0.1 10^3/ul (0-0.2); ABS Eosinophils 0.1 10^3/ul (0-0.6); ABS Lymphocytes 0.9 10^3/ul (1.0-4.8); ABS Monocytes 0.7 10^3/ul (0-0.8); ABS Neutrophils 8.7 10^3/ul (1.5-7.7); Eosinophil % 1.4 %; Hematocrit 28 % (35-47); Hemoglobin 8.8 g/dL (12.0-16.0); Lymphocyte % 8.8 %; Mean Corpuscular HGB Conc 31 g/dL (31-36); Mean Corpuscular Hemoglobin 24 pg (27-31); Mean Corpuscular Volume 76 fL (80-97); Mean Platelet Volume 8.2 fL (7.4-10.4); Nucleated Red Blood Cells % 0.1; Platelet Count 226 10^3/uL (150-450); Red Blood Count 3.71 10^6 /uL (3.70-4.87); Red Cell Distribution Width 19 % (10-15); White Blood Count 10.6 10^3/uL (3.5-10.8)
--- OUTSIDE RECORDS SUMMARY | 2019-05-31 12:18 | XMS REPORT ---
:1950 Author Organization [facility] Care Team Providers Name Role Phone Unavailable Unavailable Unavailable Problems This patient has no known problems. Allergies, Adverse Reactions, Alerts Allergy Allergy Type Status Severity Reaction(s) Onset Inactive Treating Comments Name Date Date Clinician venom-honey Base Active Unknown Reaction Interface bee Ingredient Unknown 24 shellfish Unknown Active Unknown Reaction Interface derived Unknown 24 Iodinated Unknown Active Unknown Reaction Interface Contrast Unknown -24 Media celecoxib Base Active Unknown Reaction Interface [...]
--- OUTSIDE RECORDS SUMMARY | 2019-05-31 12:18 | XMS REPORT ---
:1950 Author Organization [facility] Care Team Providers Name Role Phone Unavailable [...]
[2019-05-31 12:21] LABS: Albumin 3.5 g/dL (3.2-5.2); Albumin/Globulin Ratio 1.1 (1-3); BUN/Creatinine Ratio 29.1 (8-20); C Reactive Protein 8.91 mg/L (<8.01); Calcium 8.6 mg/dL (8.6-10.3); EGFR African American 39.4 (>60); EGFR Non-African American 32.5 (>60); Globulin 3.2 g/dL (2-4); Potassium 3.8 mmol/L (3.5-5.0); Total Bilirubin 0.7 mg/dL (0.2-1.0); Total Protein 6.7 g/dL (6.4-8.9)
[2019-05-31 12:23] LABS: Troponin I 0.01 ng/mL (<0.03)
[2019-05-31] MEDS ORDERED: NS 0.9% 1000 ML** 1,000 ML IV ONE (12:25)
[2019-05-31 14:16] VITALS: BP 136/86
[2019-05-31] MEDS ORDERED: Furosemide IV* 10 MG/ML 2 ML VIAL (20 MG) IV ONE (15:01)
[2019-05-31] MEDS ORDERED: Torsemide TAB* 20 MG PO ONE (15:16)
--- NOTE | 2019-05-31 18:39 | CONS ---
CC: Dr. Jace Echols* CONSULTATION REPORT: DATE OF CONSULT: 05/31/19 - EMERGENCY DEPT PHYSICIAN REQUESTING CONSULTATION: Dr. Jace Echols. ATTENDING PHYSICIAN: Dr. Sena Schafer (dictated by MARYCRUZ Durán). REASON FOR CONSULT: Determination of admission. CHIEF COMPLAINT: 1. "My legs are so swollen, I can't walk." 2. GI bleeding. HISTORY OF PRESENT ILLNESS: Mr. Ziegler is a 68-year-old female with a past medical history of chronic respiratory failure, diabetes mellitus, hypertension , hyperlipidemia, coronary artery disease, bowel AV malformation with history of bleeding, who presented to the ER today with complaints of bilateral lower extremity edema and bleeding from colostomy site. She states that the bilateral lower extremity edema developed suddenly 2 days ago leading to difficulty with ambulation. She notes that she came to the ER 2 days ago. She was discharged with lower extremity edema and cellulitis and was prescribed an increased dose of home Lasix 80 mg daily x3 days as well as Keflex. The following day, the patient reports that she fell and had to call the fire department to help her up. Today, she continues to have difficulty with ambulation and bilateral lower extremity edema which she reports no improvement in since increasing her Lasix dose or beginning Keflex. She states that she takes her medications as prescribed. She has had no changes to her diet. She does complain of shortness of breath, but is requiring her regular 2 L of oxygen via nasal cannula. She also complains of dizziness, shortness of breath , and mild abdominal pain in the left lower quadrant. The patient also notes that she has blood coming from her stoma. She notes that it is not in her colostomy bag, but rather comes out on a tissue when she cleans her stoma internally. She notes that this has been occurring for a few days and has worried her. She has some mild abdominal pain, which is similar to her normal abdominal pain. No changes in output. In the ER, full workup was obtained revealing an anemia, which is within the patient's baseline. BUN and creatinine were elevated and appear to be very mildly elevated from baseline. CRP is also very mildly elevated. Stool for occult blood was negative. Chest x-ray shows interstitial edema consistent with CHF, cardiomegaly. EKG shows rate of 60, normal sinus rhythm without ST changes. In the ER, the patient was given 1 L of normal saline. She was offered torsemide 80, but states that she refused this. The hospitalist team was asked to evaluate the patient. PAST MEDICAL HISTORY: 1. Heart failure, preserved ejection fraction. 2. Chronic respiratory failure, requiring 2 L supplemental oxygen at all times. 3. Diabetes mellitus type 2. 4. Hypertension. 5. Hyperlipidemia. 6. COPD. 7. Paroxysmal atrial fibrillation. 8. CAD. 9. 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 10. Depression and anxiety. 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 12. Chronic pain. 13. Neuropathy. PAST SURGICAL HISTORY: Coronary artery bypass surgery, hernia repair, colectomy and colostomy, tonsillectomy, lithotripsy, left wrist, IVC filter placement, permanent pacemaker placement, AVR. HOME MEDICATIONS: 1. Albuterol nebulized solution 1 inhalation q.4 hours p.r.n. 2. Albuterol HFA inhaler 2 puffs inhalation q.4 hours p.r.n. 3. Alprazolam 0.5 mg p.o. t.i.d. p.r.n. 4. Amiodarone 200 mg p.o. daily. 5. Atorvastatin 80 mg p.o. at bedtime. 6. Cephalexin 500 mg p.o. 4 times a day. 7. Cholecalciferol 1000 units p.o. daily. 8. Epinephrine 0.3 mg IM once p.r.n. 9. Ezetimibe 10 mg p.o. daily. 10. Fluticasone HFA 110 mcg 2 puffs inhalation b.i.d. 11. Glipizide 2.5 mg p.o. daily. 12. Melatonin 3 mg p.o. at bedtime. 13. Metformin 500 mg p.o. b.i.d. 14. Metolazone 2.5 mg p.o. daily p.r.n. 15. Metoprolol succinate 50 mg p.o. daily. 16. Mupirocin 2% ointment 1 application topically b.i.d. 17. Glucerna Advance 237 mL p.o. daily. 18. Omeprazole 40 mg p.o. daily. 19. Oxycodone/acetaminophen 5/325 one tab p.o. q.6 hours p.r.n., MDD 4 tabs. 20. Pregabalin 50 mg p.o. at bedtime. 21. Ramipril 2.5 mg p.o. daily. 22. Sertraline 200 mg p.o. daily. 23. Spironolactone 25 mg p.o. b.i.d. 24. Tiotropium 1 cap inhalation daily 25. Torsemide 80 mg p.o. daily. DRUG ALLERGIES: BEES, SHELLFISH, IODINATED CONTRAST, CELECOXIB. FAMILY HISTORY: The patient had a sister with breast cancer. One brother and one sister with diabetes mellitus. Mother, brother and son all of myocardial infarction. Sister and mother both had a CVA. SOCIAL HISTORY: The patient states that she quit using tobacco approximately 7 years ago. Prior to that, she smoked 1 pack per day for approximately 8 years. She does not use alcohol. She quit 4 to 5 years ago. She does not work. 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 She is not . She has 2 daughters and 1 son. She has lost 2 sons, one due to [place], one was shot. In the event that she is unable to make her own medical decision, she has appointed her daughter, Manuela Carr, to be her surrogate decision maker. REVIEW OF SYSTEMS: A 14-point review of systems has been performed and all the pertinent positives and negatives are in the HPI. All other systems are negative. PHYSICAL EXAM: General: Ms. Ziegler is a well-developed, well-nourished, obese 68-year-old white female, who is sitting up in bed. She is intermittently tearful, but also easily agitated. She is breathing comfortably on 2 L of supplemental oxygen and appears to be in no acute distress. Cardiovascular: Regular rate and rhythm with S1, S2 present. There are no murmurs, rubs, clicks, or gallops. There is no apparent JVD. There is bilateral lower extremity peripheral edema pretibial, 1+ with mild erythema without increased temperature to bilateral lower extremities. Pulmonary: Symmetrical chest expansion without use of accessory muscles. Faint end- expiratory wheezing throughout without rales or rhonchi. Abdomen: Obese. Bowel sounds in all quadrants. The abdomen is soft with some mild tenderness to palpation. There is a colostomy bag in place with soft brown liquid in colostomy bag. There is no noted blood in the stool. Musculoskeletal: The patient is able to move all of her extremities. She is refusing to attempt ambulation. Neuro: The patient is awake. She is alert and oriented x3. The patient refused to ambulate; therefore, gait was not assessed. DIAGNOSTIC STUDIES/LAB DATA: Hemoglobin 8.8, hematocrit 28, MCV 76. Creatinine 1.58, BUN 46, glucose 142. CRP 8.91. 1. EKG: Rate of 60, normal sinus rhythm without ST changes. 2. Chest x-ray, impression: Cardiomegaly with interstitial edema consistent with CHF. ASSESSMENT AND PLAN: Ms. Ziegler is a 68-year-old with a past medical history of heart failure, preserved ejection fraction; chronic respiratory failure; chronic obstructive pulmonary disease; hypertension; hyperlipidemia; diabetes mellitus; and bowel arteriovenous malformation with history of GI bleeds, who is status post colectomy with colostomy, who presented to the ER today with complaints of inability to ambulate due to bilateral lower extremity edema and bleeding. The patient was evaluated for admission by this creative services writer for the following conditions: 1. Bilateral lower extremity edema and difficulty with ambulation. The patient appears to have a very mild heart failure exacerbation at this time. I believe that the plan for increasing her diuretic would be effective. I discussed this with the patient, stating she may not need to be admitted, but that we would like to assess her ambulation prior to determining this, at which point she stated "I want to get out of here." She was offered senior care admission as her insurance allows this, but when offered this she stated "how many times do I have to tell you I want to get out of here." I believe that the patient's mild heart failure exacerbation symptoms may not have prompted an admission, although her inability to ambulate certainly could have. Again, she refused to allow us to evaluate her ambulation and is requesting to leave against medical advice. 2. Reported gastrointestinal bleed. The patient states that she has bleeding inside the stomal area when she attempts to clean it. Discussion was had with the patient regarding cleaning the stomal area and we discussed that she does not have to insert the finger deep into the stomal area in order to clean it. Her stool test was negative for blood and this was relayed to her which brought her some relief. Her H and H is also stable. The patient was evaluated and I could not make a determinant as to whether or not she should be admitted as she became agitated and requested to leave against medical advice. At this time, I would recommend continuing her oral antibiotics as well as her increased dose of torsemide. She should also follow up with her primary care provider as soon as possible. She should also return to the ER if she has any concerns or complaints. DISPOSITION: Leaving against medical advice. TIME SPENT: Approximately 60 minutes was spent on this consultation, greater than half that time was spent [id number] with the patient obtaining history, performing physical, and reviewing the plan of care. The case has been reviewed with my attending, Dr. Sena Schafer, who is in agreement with the plan of care. MARYCRUZ WU [id number]/[facility] #: [id number] MTDBrendan
== END 2019-05-31 16:37 | disposition left against medical advice (07) ==
LOC: ED 11:06
DX: J44.9 Chronic obstructive pulmonary disease, unspecified (principal); I50.30 Unspecified diastolic (congestive) heart failure; N17.9 Acute kidney failure, unspecified; E86.0 Dehydration; E11.9 Type 2 diabetes mellitus without complications; E07.9 Disorder of thyroid, unspecified; D64.9 Anemia, unspecified; I48.91 Unspecified atrial fibrillation; I25.10 Atherosclerotic heart disease of native coronary artery without angina pectoris; E78.00 Pure hypercholesterolemia, unspecified; I11.0 Hypertensive heart disease with heart failure; K21.9 Gastro-esophageal reflux disease without esophagitis; F41.9 Anxiety disorder, unspecified; F32.9 Major depressive disorder, single episode, unspecified; Z87.442 Personal history of urinary calculi; Z98.51 Tubal ligation status; Z90.49 Acquired absence of other specified parts of digestive tract; Z95.1 Presence of aortocoronary bypass graft; Z95.2 Presence of prosthetic heart valve; Z96.642 Presence of left artificial hip joint; Z99.81 Dependence on supplemental oxygen; Z86.74 Personal history of sudden cardiac arrest; Z87.891 Personal history of nicotine dependence; Z79.01 Long term (current) use of anticoagulants; Z79.84 Long term (current) use of oral hypoglycemic drugs; Z79.899 Other long term (current) drug therapy; Z88.6 Allergy status to analgesic agent; Z91.041 Radiographic dye allergy status
CPT/HCPCS: 36415; 71045; 80053; 82270; 84484; 85025; 86140; 86850; 86900; 86901; 87040; 93005; 96360; 99284; A9270-GY

== ENCOUNTER 2019-06-04 16:02 | Inpatient (IN) | payer MEDICARE, OTHER ==
[2019-06-04] MEDS ORDERED: Albuterol/Ipratropium NEB.SOL* Albuterol 2.5 MG/Ipratropium 0.5 MG 3 ML INH ONE (16:10)
[2019-06-04] MEDS ORDERED: Furosemide IV* 10 MG/ML VIAL (40 MG) IV SLOW PU ONE ×2 (16:12→19:42)
[2019-06-04] MEDS ORDERED: methylPREDNISolone 125 MG* 2 ML VIAL IV ONE (16:13)
--- NOTE | 2019-06-04 16:14 | ED ---
Respiratory - HPI Summary HPI Summary: 68 year old female presents with shortness breath for the past week. She was seen here 2 times in the past week and they increased her torsemide but she does not have any relief of shortness of breath. she was seen in primary today and had a breathing treatment that helped. Her primary is concerd that can not manage her chf outpatient and that she needs to be admitted. patient states that she's had a productive cough. She denies any fevers or chills. No chest pain. States her weight is increased. States that she is having a harder and harder time breathing. She states that her legs have more swollen or painful. She has history of DVTs with IVC filter. not on blood thinners as has history of GI bleeds. she is on 2 liters of oxygen at home. - History of Current Complaint Chief Complaint: EDShortnessOfBreath Stated Complaint: SOB PER EMS Time Seen by Provider: 06/04/19 16:05 Pain Intensity: 9 - Allergy/Home Medications Allergies/Adverse Reactions: Allergies Allergy/AdvReac Type Severity Reaction Status Date / Time bee venom protein (honey bee) Allergy Severe Rash Verified 05/31/19 11:25 shellfish derived Allergy Severe Hives Verified 05/31/19 11:25 Iodinated Contrast Media Allergy Intermediate Hives Verified 05/31/19 11:25 [Iodinated Contrast- Oral and IV Dye] celecoxib Allergy Hives Verified 05/31/19 11:25 Home Medications: Home Medications oxyCODONE/Acetamin 5/325 MG* [Percocet 5/325 TAB*] 1 tab PO Q6H PRN 06/04/19 [ History Confirmed 06/04/19] PMH/Surg Hx/FS Hx/Imm Hx Endocrine/Hematology History: Reports: Hx Anticoagulant Therapy - Xarelto, Hx Diabetes, Hx Thyroid Disease, Hx Anemia, Other Endocrine/Hematological Disorders - 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, causing DVTs) Cardiovascular History: Reports: Hx Atrial Fibrillation, Hx Cardiac Arrest, Hx Congestive Heart Failure, Hx Coronary Artery Disease, Hx Deep Vein Thrombosis, Hx Hypercholesterolemia, Hx Hypotension, Hx Hypertension, Hx Pacemaker/ICD - PACEMAKER 03/09/18, Hx Peripheral Vascular Disease, Hx Valvular Heart Disease, Other Cardiovascular Problems/Disorders - valve replacement, CABG Respiratory History: Reports: Hx Asthma, Hx Chronic Obstructive Pulmonary Disease (COPD), Hx Pneumonia, Hx Pulmonary Embolism, Hx Sleep Apnea, Other Respiratory Problems/Disorders - home o2, 2.5L GI History: Reports: Hx Diverticulosis, Hx Gall Bladder Disease, Hx Gastroesophageal Reflux Disease, Hx Gastrointestinal Bleed - 08/22/16 admission, Hx Hiatal Hernia - ventral hernia, Other GI Disorders - DIVERTICULITIS, SBO with colostomy, bowel AVM's History: Reports: Hx Kidney Stones, Hx Renal Disease - KIDNEY STONES Denies: Hx Dialysis, Other Problems/Disorders Musculoskeletal History: Reports: Hx Arthritis - legs and shoulders, Hx Back Problems, Hx Bursitis, Hx Scoliosis, Other Musculoskeletal History - Left hip replacement Denies: Hx Osteoporosis Sensory History: Reports: Hx Contacts or Glasses Denies: Hx Deafness, Hx Hearing Aid Opthamlomology History: Reports: Hx Contacts or Glasses Neurological History: Denies: Hx Dementia, Hx Developmental Delay, Hx Headaches, Hx Migraine, Hx Nerve Disease, Hx Seizures, Hx Spinal Cord Injury, Hx Transient Ischemic Attacks (TIA), Other Neuro Impairments/Disorders Psychiatric History: Reports: Hx Anxiety, Hx Depression Denies: Hx Panic Disorder, Hx Substance Abuse - Cancer History Cancer Type, Location and Year: none - Surgical History Surgery Procedure, Year, and Place: [place] [facility] [place] [facility] [place] ST[place]ES [place] [facility] [place], HEART VALVE REPLACEMENT 2010, [facility], LEFT HIP REPLACED, 2009, [facility]. TONSILECTOMY A CHILD. COLOSTOMY 2015, IVC filter. pacemaker 2018 Hx Anesthesia Reactions: No - Immunization History Date of Tetanus Vaccine: Up to date Date of Influenza Vaccine: 2019 Infectious Disease History: No Infectious Disease History: Reports: Hx of Known/Suspected MRSA - 08/22/16 [facility] + MRSA nares, Hx Shingles Denies: Hx Hepatitis, Hx Human Immunodeficiency Virus (HIV), Traveled Outside the [place] in Last 30 Days - Family History Known Family History: Positive: Cardiac Disease, Other - neg: anesthesia reaction - Social History Alcohol Use: None Hx Substance Use: No Substance Use Type: Reports: None Hx Tobacco Use: Yes Smoking Status (MU): Former Smoker Type: Cigarettes Have You Smoked in the Last Year: No Review of Systems Negative: Fever Negative: Chest Pain Positive: Shortness Of Breath, Cough Positive: Edema All Other Systems Reviewed And Are Negative: Yes Physical Exam Triage Information Reviewed: Yes Vital Signs On Initial Exam: Initial Vitals Temp Pulse Resp BP Pulse Ox 98.0 F 61 20 179/65 100 06/04/19 16:03 06/04/19 16:03 06/04/19 16:03 06/04/19 16:03 06/04/19 16:03 Vital Signs Reviewed: Yes Appearance: Positive: Well-Appearing Skin: Positive: Warm, Dry Head/Face: Positive: Normal Head/Face Inspection Eyes: Positive: Normal, Conjunctiva Clear ENT: Positive: Pharynx normal Respiratory/Lung Sounds: Positive: Breath Sounds Present, Rales, Wheezes Cardiovascular: Positive: Normal, RRR Abdomen Description: Positive: Nontender, Soft Bowel Sounds: Positive: Present Musculoskeletal: Positive: Edema Left, Edema Right, Other - good pulses Neurological: Positive: Normal Psychiatric: Positive: Normal Procedures - Sedation Patient Received Moderate/Deep Sedation with Procedure: No Diagnostics - Vital Signs Vital Signs Temp Pulse Resp BP Pulse Ox 06/04/19 16:03 98.0 F 61 20 179/65 100 - Laboratory Result Diagrams: 06/04/19 16:43 06/04/19 16:43 Lab Statement: Any lab studies that have been ordered have been reviewed, and results considered in the medical decision making process. - Radiology chest Radiology Interpretation Completed By: Radiologist Summary of Radiographic Findings: IMPRESSION: Cardiomegaly with interstitial edema consistent with CHF similar to that identified on May 31, 2019. Re-Evaluation - Re-Evaluation First Eval Re-Evaluation Time: 18:13 Change: Improved Comment: feeling better, rales still present Disposition - Course Course Of Treatment: 68 year old female presents with shortness breath for the past week. She was seen here 2 times in the past week and they increased her torsemide but she does not have any relief of shortness of breath. she was seen in primary today and had a breathing treatment that helped. Her primary is concerd that can not manage her chf outpatient and that she needs to be admitted. patient states that she's had a productive cough. She denies any fevers or chills. No chest pain. States her weight is increased. States that she is having a harder and harder time breathing. She states that her legs have more swollen or painful. She has history of DVTs with IVC filter. not on blood thinners as has history of GI bleeds. On exam has bilateral edema noted. Has some wheezing and rales noted on exam. Abdomen soft nontender. chest xray shows chf. wbc normal. bnp 904. gave lasix and breathing treatment and is feeling better. is still sob. discussed with dr gates at 18:45 who says that does not need to be admitted as just needs futher out patient care with toresmide twice a day. stated to get social work involved who states can admitted for social reasons. discussed with patient and she does not want to be admitted for patient. her bnp is elevated and she is sob although vitals are not hypoxia but I believe she warrants admission. will have hospitalist consult. discussed with dr marley who says to give lasix 80mg IV which will give. dr marley say patient and will admit. - Differential Dx - Cardiopulmonary Differential Diagnoses - Cardiopulmonary: Bronchitis, CHF, Lower Resp Infection - Diagnoses Provider Diagnoses: CHF (congestive heart failure), COPD (chronic obstructive pulmonary disease) - Critical Care Time Critical Care Time: 30-74 min - 45 mins Discharge ED - Sign-Out/Discharge Documenting (check all that apply): Patient Departure - Discharge Plan Condition: Stable Disposition: ADMITTED TO [facility] Referrals: Kajal Simons MD [Primary Care Provider] - - Billing Disposition and Condition Condition: STABLE Disposition: Admitted to [facility]
[2019-06-04 17:13] LABS: Albumin 3.5 g/dL (3.2-5.2); Calcium 8.4 mg/dL (8.6-10.3); Magnesium 1.4 mg/dL (1.9-2.7); Total Bilirubin 0.7 mg/dL (0.2-1.0)
--- OUTSIDE RECORDS SUMMARY | 2019-06-04 17:17 | XMS REPORT ---
:1950 Author Organization [facility] Care Team Providers Name Role Phone Unavailable [...]
--- OUTSIDE RECORDS SUMMARY | 2019-06-04 17:17 | XMS REPORT ---
:1950 Author Organization [facility] Care Team Providers Name Role Phone Unavailable [...]
[2019-06-04 17:19] LABS: Albumin/Globulin Ratio 1.2 (1-3); BUN/Creatinine Ratio 17.1 (8-20); C Reactive Protein 16.94 mg/L (<8.01); EGFR African American 49.7 (>60); EGFR Non-African American 41.1 (>60); Globulin 2.9 g/dL (2-4); Total Protein 6.4 g/dL (6.4-8.9)
[2019-06-04 17:45] LABS: ABS Basophils 0.1 10^3/ul (0-0.2); ABS Eosinophils 0.2 10^3/ul (0-0.6); ABS Lymphocytes 1.2 10^3/ul (1.0-4.8); ABS Monocytes 0.7 10^3/ul (0-0.8); ABS Neutrophils 4.8 10^3/ul (1.5-7.7); Eosinophil % 2.8 %; Hematocrit 28 % (35-47); Hemoglobin 8.9 g/dL (12.0-16.0); Lymphocyte % 17.2 %; Mean Corpuscular HGB Conc 31 g/dL (31-36); Mean Corpuscular Hemoglobin 24 pg (27-31); Mean Corpuscular Volume 76 fL (80-97); Mean Platelet Volume 8.3 fL (7.4-10.4); Nucleated Red Blood Cells % 0.2; Platelet Count 248 10^3/uL (150-450); Red Blood Count 3.75 10^6 /uL (3.70-4.87); Red Cell Distribution Width 19 % (10-15)
[2019-06-04] MEDS ORDERED: Magnesium Sulfate 2 GM IV* 2 GM/50 ML BAG IVPB ONE (17:46)
[2019-06-04 17:54] LABS: Troponin I 0.01 ng/mL (<0.03)
[2019-06-04] MEDS ORDERED: Albuterol 2.5 MG/3 ML NEB.SOL* (0.083%) INH PRN (21:54)
[2019-06-04] MEDS ORDERED: Dextrose 50% VIAL 50 ml IV PUSH PRN (21:59)
[2019-06-04] MEDS ORDERED: Enoxaparin(*) 30 MG/0.3 ML SYR SUBCUT SCH (22:00)
[2019-06-04] MEDS: ALPRAZolam TAB* 0.5 MG PO PRN (23:59)
--- NOTE | 2019-06-05 00:33 | HP ---
HISTORY AND PHYSICAL: DATE OF ADMISSION: 06/04/19 PRIMARY CARE PROVIDER: Dr. Simons. [facility] BUSINESS ADMINISTRATOR: Stephanie Carr, the patient's daughter. CODE STATUS: Full. CHIEF COMPLAINT: Shortness of breath and worsening peripheral edema. HISTORY OF PRESENT ILLNESS: A 68-year-old female with past medical history of heart failure with preserved ejection fraction with EF 50-55% in August 2018; CKD stage 3; CAD, status post CABG, status post aortic valve replacement; non- insulin- dependent diabetes; COPD and RYAN/OHS, noncompliant on CPAP, on chronic oxygen therapy; paroxysmal atrial fibrillation; status post pacemaker; history of colostomy after colectomy in the setting of diverticular disease with current complication of parastomal hernia; history of GI bleed from known AVMs; history of DVT, status post IVC filter, not on anticoagulation secondary to above GI bleed, who has been presenting to the emergency room twice in the last 5 days. The patient reports that since right after Jachin, she started retaining water weight, she has been getting more short of breath. She is having worsening peripheral edema and finds that her baseline. She is able to ambulate very slowly between the rooms and has been getting short of breath but for the last 2 weeks she is now barely able to move without getting short of breath and feeling weaker secondary to the worsening peripheral edema. She actually presented to the emergency room on 05/31/19 where she was found to be in heart failure exacerbation, although she was not needing increased oxygen. Her troponins were negative and her chest x-ray was largely unremarkable. Thus , it was suggested that she increase her outpatient oral torsemide dose and follow up with primary care. Her oral torsemide dose at baseline was 60 mg, it was increased to 80 mg and for the last 4 days, she has had no response to that and thus her primary care provider sent her back to the hospital for CHF exacerbation with failure of oral outpatient diuretic therapy. The patient denies chest pain, palpitations, GI, , or musculoskeletal complaints and largely just feels frustrated with her shortness of breath and worsening peripheral edema not responsive to oral diuretics. She is also tearful and overwhelmed. She was at home and feels that her healthcare is deteriorated to the point where she was not able to manage her other chronic medical conditions secondary to her increase in weight. EMERGENCY ROOM COURSE: Vital signs: Blood pressure 148/55, heart rate 61, respiratory rate 17, 96% on 2 L nasal cannula. Labs showed mild anemia with hemoglobin 8.9 which is consistent with baseline. Creatinine of 1.29 which is consistent with baseline. Troponin was flat. Chest x-ray shows interstitial edema, unchanged from prior chest x-ray done before, although consistent with CHF exacerbation. EKG shows a regular junctional rhythm with no ST changes, unchanged from prior. Because of non-responsiveness to oral diuretics and the patient's weight gain, worsening shortness of breath, hospitalist team was asked to admit the patient for CHF exacerbation. PAST MEDICAL HISTORY: 1. CAD, status post CABG and status post AVR. 2. Heart failure with preserved ejection fraction with ejection fraction of 50- 55% in August 2018. 3. Lhw-jdszrhe-gwhzaskye diabetes. 4. COPD, on 2 L nasal cannula. 5. RYAN/OHS, noncompliant on CPAP, on 2 L nasal cannula. 6. Anemia. 7. History of nephrolithiasis. 8. 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 9. History of DVT, not on AC secondary to GI bleed. 10. History of known bowel AVMs with GI bleed in the past. 11. History of bowel obstruction, status post ostomy. 12. Paroxysmal atrial fibrillation, status post pacemaker. PAST SURGICAL HISTORY: 1. Status post AVR. 2. Status post CABG. 3. Status post pacemaker. 4. Status post IVC filter. MEDICATIONS: 1. Albuterol inhaler 2 puffs inhale q.4 hours p.r.n. 2. Epinephrine 0.3 mg IM once p.r.n. 3. Glipizide 2.5 mg p.o. daily. 4. Metformin 500 mg p.o. b.i.d. 5. Metolazone 2.5 mg p.o. daily. 6. Bactroban 1 application topical b.i.d. 7. Glucerna 237 mL p.o. daily. 8. Ramipril 2.5 mg p.o. daily. 9. Torsemide 80 mg p.o. daily. 10. Albuterol inhale nebulizer solution q.4 hours p.r.n. 11. Alprazolam 0.5 mg p.o. t.i.d. p.r.n. 12. Amiodarone 200 mg p.o. daily. 13. Atorvastatin 80 mg p.o. q.h.s. 14. Vitamin D3 of 1000 units p.o. daily. 15. Zetia 10 mg p.o. daily. 16. Fluticasone 2 puffs inhale b.i.d. 17. Melatonin 3 mg p.o. q.h.s. 18. Metoprolol succinate 50 mg p.o. daily. 19. Omeprazole 40 mg p.o. daily. 20. Oxycodone/acetaminophen 5/325 one tab p.o. q. 6 hours p.r.n. 21. Pregabalin 50 mg p.o. q.h.s. p.r.n. 22. Sertraline 200 mg p.o. daily. 23. Spironolactone 25 mg p.o. b.i.d. 24. Tiotropium inhale 1 cap daily. ALLERGIES: 1. BEE VENOM. 2. CONTRAST. 3. SHELLFISH. 4. CELEBREX. FAMILY HISTORY: Mother is from heart disease. Father from motor vehicle accident. She reports siblings with heart disease in their 50s. SOCIAL HISTORY: She lives alone at home without services. She is disabled. 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 She denies a lifetime history of alcohol or illicits. She is a former tobacco user with greater than [id number]-[id number] history, although she quit more than 10 years ago. REVIEW OF SYSTEMS: Constitutional: Positive for malaise and weakness, but negative for fevers or chills. HEENT: Negative for headaches, vision changes, sore throat. Cardiovascular: Positive for orthopnea. Negative for chest pain or palpitations. Respiratory: Positive for shortness of breath. Negative for cough or pleuritic chest pain. GI: Negative for nausea, vomiting, diarrhea, or abdominal pain. : Negative for dysuria or hematuria. Musculoskeletal: Negative for myalgias, arthralgias, or weakness. Skin: Negative for new rashes or lesions. Neurologic: Negative for focal weakness or numbness. Psychiatric: Positive for anxiety and depression. Negative for suicidal ideation. Endocrine: Negative for polyuria or polydipsia. Heme: Negative for easy bruising, bleeding, or lymphadenopathy. PHYSICAL EXAMINATION GENERAL APPEARANCE: This is a chronically ill-appearing woman, in no acute distress, although overwhelmed and tearful when starting the HPI secondary to her home situations. Otherwise, pleasant and cooperative and A and O x4. She has no increased work of breathing and speak in full sentences. VITAL SIGNS: At the time of physical exam, blood pressure 133/59, heart rate 60 , respiratory rate 23, oxygen saturation 95% on 2 L nasal cannula. HEENT: Pupils are equal and reactive. Extraocular muscles are intact. Sclerae is anicteric. Oropharynx shows moist mucous membranes. NECK: Supple without supraclavicular or cervical lymphadenopathy. RESPIRATORY: Lungs show bilateral crackles with no wheeze or rhonchi. CARDIAC: Regular rate and rhythm with no murmurs, rubs, or gallops. ABDOMEN: Belly is soft, nontender, nondistended with ostomy in place. MUSCULOSKELETAL: She moves all 4 limbs spontaneously. EXTREMITIES: Warm and well perfused. She has 2+ pitting edema to bilateral knees. NEURO: Cranial nerves II through XII are intact with no focal neurologic deficits. She is A and O x4. PSYCHIATRIC: The patient is depressed and anxious and tearful throughout exam. DIAGNOSTIC STUDIES/LAB DATA: White blood cell count 7, hemoglobin 8.9, hematocrit 28, and platelets 248. BMP: Sodium 139, potassium 4, chloride 100, carbon dioxide 31, anion gap 8, BUN 22, creatinine 1.29. Glucose 89. AST 11, ALT 10, alk phos 83. Troponin 0.01. BNP elevated at 904. EKG shows junctional rhythm with no signs of acute ST changes. Chest x-ray shows bilateral interstitial edema consistent with CHF and cardiomegaly. Pacemaker in place. Essentially unchanged from 05/31/19. ASSESSMENT AND PLAN: A 68-year-old female with past medical history of heart failure with preserved ejection fraction with ejection fraction of 50-55% in August; coronary artery disease, status post coronary artery bypass graft; diabetes; chronic obstructive pulmonary disease and obstructive sleep apnea/ obesity hypoventilation syndrome, on chronic oxygen; paroxysmal atrial fibrillation, status post pacemaker; status post colostomy for bowel obstruction ; history of distant gastrointestinal bleed; deep venous thrombosis, not on anticoagulation, who presents with heart failure exacerbation, likely ongoing for 10 to 14 days, and failure to respond to increase in oral diuretics. She has increasing shortness of breath, peripheral edema and has gained weight. Given inability to manage at home, it is reasonable to admit her for IV diuresis and hemodynamic monitoring in the setting of needing high-dose diuretics. 1. Heart failure with preserved ejection fraction. The patient has been unresponsive to torsemide 80 mg p.o. for the last five days. Dose roughly equivalent to 120 mg p.o. Lasix. We will start her on Lasix 80 mg IV b.i.d. with Hendrix placement for goal of negative 1 L daily. We will watch electrolytes , place her on telemetry and offer salt-restricted diet. Strict I/O and daily weights. 2. CAD. Continue the patient's aspirin and statin. We will hold MADELAINE in the setting of aggressive diuresis. 3. RYAN/OHS. Continue the patient's 2 L nasal cannula. 4. Hypertension. We will hold ramipril given the diuresis. We will continue spironolactone 25 mg but change from b.i.d. to daily. 5. Paroxysmal atrial fibrillation. Continue amiodarone. She is off anticoagulation secondary to GI bleed in the past. 6. COPD. She is optimized on triple inhaler therapy. We will continue p.r.n. albuterol. 7. GERD. Continue PPI. 8. Chronic pain. We will offer the patient hydrocodone and pregabalin as per her home medications. 9. Oii-jpujjxl-sxmogrunv diabetes. She is on glipizide and renally dosed metformin. We will hold metformin given diuresis and glipizide and offer point of care glucose and lispro. 10. Chronic kidney disease, stage 3. It appears at baseline. We will watch creatinine during b.i.d. IV diuresis. 11. Ostomy status. No current complications. 12. Anxiety and depression. The patient is on Zoloft and p.r.n. alprazolam which will be continued. 13. DVT prophylaxis. We will place the patient on renally dosed Lovenox 14. Code status is full. 15. Disposition: The patient is stable for admission to [address] [place] [address] for CHF exacerbation, monitor diuresis with Hendrix catheter and electrolyte checking with a goal of negative 1 L daily. CONSULTS: Offered PT consult given the patient's weakness and to ambulate safely in the home. TIME SPENT: Sixty minutes was spent on planning of this admission with over half of that spent directly at the bedside with the patient to provide direct patient care. Plan of care discussed with the patient. She has no further questions. [id number]/[facility] #: [id number] SERENA
[2019-06-05] MEDS: oxyCODONE/Acetamin 5/325 MG* TAB PO PRN ×3 (00:58→18:04)
[2019-06-05 01:19] LABS: Urine Appearance Clear; Urine Bilirubin Negative (Negative); Urine Blood Negative (Negative); Urine Color Straw; Urine Glucose Negative (Negative); Urine Ketones Negative (Negative); Urine Nitrite Negative (Negative); Urine Protein Negative (Negative); Urine Specific Gravity 1.006 (1.010-1.030); Urine Urobilinogen Negative (Negative)
[2019-06-05 06:36] LABS: ABS Lymphocytes 0.6 10^3/ul (1.0-4.8); ABS Monocytes 0.3 10^3/ul (0-0.8); ABS Neutrophils 5.1 10^3/ul (1.5-7.7); Hematocrit 27 % (35-47); Hemoglobin 8.5 g/dL (12.0-16.0); Lymphocyte % 10.3 %; Mean Corpuscular HGB Conc 32 g/dL (31-36); Mean Corpuscular Hemoglobin 24 pg (27-31); Mean Corpuscular Volume 75 fL (80-97); Mean Platelet Volume 8.5 fL (7.4-10.4); Nucleated Red Blood Cells % 0.2; Platelet Count 247 10^3/uL (150-450); Red Blood Count 3.58 10^6 /uL (3.70-4.87); Red Cell Distribution Width 19 % (10-15)
[2019-06-05 06:50] LABS: BUN/Creatinine Ratio 18.9 (8-20); Calcium 8.4 mg/dL (8.6-10.3); EGFR African American 48.4 (>60); Magnesium 1.9 mg/dL (1.9-2.7); Potassium 4.5 mmol/L (3.5-5.0)
[2019-06-05] MEDS: Cholecalciferol TAB* 1000 UNITS PO SCH (07:59)
[2019-06-05] MEDS: Amiodarone TAB* 200 MG PO SCH (07:59)
[2019-06-05] MEDS: Ezetimibe TAB* 10 MG PO SCH (08:00)
[2019-06-05] MEDS: Furosemide IV* 10 MG/ML 10 ML VIAL (100 MG) IV SCH ×2 (08:00→21:26)
[2019-06-05] MEDS: Metoprolol Succinate XL TAB* 50 MG PO SCH (08:01)
[2019-06-05] MEDS: Pantoprazole TAB * 40 MG TAB PO SCH (08:02)
[2019-06-05] MEDS: Sertraline* 100 MG TAB PO SCH (08:02)
[2019-06-05] MEDS: Spironolactone TAB* 25 MG PO SCH (08:03)
[2019-06-05] MEDS: Insulin LISPRO* 1 UNITS UNIT SUBCUT SCH ×3 (09:17→18:04)
[2019-06-05] MEDS: SPIRIVA Respimat* (tiotropium) 2.5 mcg/inh Inhaler INH SCH (11:38)
[2019-06-05] MEDS ORDERED: Melatonin 3 MG TAB PO SCH (18:00)
--- NOTE | 2019-06-05 18:22 | PN ---
Subjective Date of Service: 06/05/19 Interval History: patient seen this morning, sitting in chair, leg elevated. she feels better as compared to her admission night. No events. tolerating her lasix 80 mg IV well. electrolytes this morning withing normal limit. no fever or chills. Past Medical History: Unchanged from Admission Objective Active Medications: Acetaminophen (Tylenol Tab*) 650 mg PO Q6H PRN PRN Reason: PAIN - MILD Albuterol (Ventolin 2.5 Mg/3 Ml Neb.Lorie*) 2.5 mg INH Q4H PRN PRN Reason: SOB/WHEEZING Alprazolam (Xanax Tab*) 0.5 mg PO TID PRN PRN Reason: ANXIETY Last Admin: 06/04/19 23:59 Dose: 0.5 mg Amiodarone HCl (Cordarone Tab*) 200 mg PO DAILY [facility] Last Admin: 06/05/19 07:59 Dose: 200 mg Atorvastatin Calcium (Lipitor*) 80 mg PO BEDTIME [facility] Cholecalciferol (Vitamin D Tab*) 1,000 units PO DAILY [facility] Last Admin: 06/05/19 07:59 Dose: 1,000 units Dextrose (Dextrose 50% Vial 50 Ml*) 25 ml IV PUSH .FOR FS < 60 - SS PRN PRN Reason: FS < 60 Ezetimibe (Zetia Tab*) 10 mg PO DAILY [facility] Last Admin: 06/05/19 08:00 Dose: 10 mg Enoxaparin Sodium (Lovenox(*)) 40 mg SUBCUT 2100 [facility] Furosemide (Lasix Iv*) 80 mg IV BID [facility] Stop: 06/06/19 09:01 Last Admin: 06/05/19 08:00 Dose: 80 mg Insulin Human Lispro (Humalog*) 0 units SUBCUT AC [facility]; Protocol Last Admin: 06/05/19 18:04 Dose: 2 units Melatonin (Melatonin) 3 mg PO 2200 [facility] Metoprolol Succinate (Toprol Xl Tab*) 50 mg PO DAILY [facility] Last Admin: 06/05/19 08:01 Dose: 50 mg Mometasone Furoate (Asmanex 220 Mcg Mdi *) 2 puff INH QPM [facility] Oxycodone/Acetaminophen (Percocet 5/325 Tab*) 1 tab PO Q6H PRN PRN Reason: PAIN - MODERATE Last Admin: 06/05/19 18:04 Dose: 1 tab Pantoprazole Sodium (Protonix Tab*) 40 mg PO DAILY [facility] Last Admin: 06/05/19 08:02 Dose: 40 mg Pregabalin (Lyrica 50 Mg Cap (*)) 50 mg PO BEDTIME [facility] Sertraline HCl (Zoloft*) 200 mg PO DAILY [facility] Last Admin: 06/05/19 08:02 Dose: 200 mg Spironolactone (Aldactone Tab*) 25 mg PO DAILY [facility] Last Admin: 06/05/19 08:03 Dose: 25 mg Tiotropium [place] (Spiriva Respimat 2.5 Mcg) 2 puff INH DAILY [facility] Last Admin: 06/05/19 11:38 Dose: Not Given Vital Signs - 8 hr 06/05/19 06/05/19 06/05/19 12:18 15:22 18:04 Respiratory 17 20 16 Rate Oxygen Devices in Use Now: Nasal Cannula Appearance: awake, alert. no distress Eyes: No Scleral Icterus Ears/Nose/Mouth/Throat: Clear Oropharnyx, Mucous Membranes Moist Neck: NL Appearance and Movements; NL JVP, Trachea Midline Respiratory: - - rales bilateral lower 1/3 , fine expiratory wheezing Cardiovascular: NL Sounds; No Murmurs; No JVD, - - +3 edema Abdominal: NL Sounds; No Tenderness; No Distention Extremities: - - +3 edema Skin: No Rash or Ulcers Neurological: Alert and Oriented x 3 Result Diagrams: 06/05/19 05:55 06/05/19 05:55 Assess/Plan/Problems-Billing Assessment: 68 y/o female admitted for failed outpatient oral torsemide. admitted for IV lasix - Patient Problems (1) Acute on chronic diastolic heart failure Current Visit: No Status: Acute Code(s): I50.33 - ACUTE ON CHRONIC DIASTOLIC (CONGESTIVE) HEART FAILURE SNOMED Code(s): 563783445 Comment: - Failing outpatient po Torsemide, - Agree with IV lasix 80 mg IV bid. Continue aldactone 25 mg daily. Lasix is scheduled to be completed tomorrow. Will reassess tomorrow and redose. - Continue Daily weight and I/O (2) Atrial fibrillation Current Visit: No Status: Acute Code(s): I48.91 - UNSPECIFIED ATRIAL FIBRILLATION SNOMED Code(s): 73264452 Comment: - Paced, Continue Amio - due to h/o recurrent GI bleeding, not on anticoagulation (3) COPD (chronic obstructive pulmonary disease) Current Visit: No Status: Chronic Priority: Medium Code(s): J44.9 - CHRONIC OBSTRUCTIVE PULMONARY DISEASE, UNSPECIFIED SNOMED Code(s): 43744344 Comment: - stable. Continue neb, spiriva (4) DM2 (diabetes mellitus, type 2) Current Visit: No Status: Chronic Comment: On SSI (5) DVT prophylaxis Current Visit: No Status: Acute Code(s): ITK0155 - SNOMED Code(s): 555871412 Comment: - SQ Lovenox
[2019-06-05] MEDS: Enoxaparin(*) 40 MG/0.4 ML SYR SUBCUT SCH (21:26)
[2019-06-05] MEDS: Acetaminophen TAB* 325 MG PO PRN (21:27)
[2019-06-05] MEDS: Atorvastatin* 80 MG TAB PO SCH (21:27)
[2019-06-05] MEDS: ALPRAZolam TAB* 0.5 MG PO PRN (21:28)
[2019-06-05] MEDS: Melatonin 3 MG TAB PO SCH (21:28)
[2019-06-05] MEDS: Pregabalin 50 mg CAP (*) PO SCH (21:28)
[2019-06-05] MEDS: Mometasone 220 MCG MDI INH SCH (21:39)
[2019-06-06] MEDS: SPIRIVA Respimat* (tiotropium) 2.5 mcg/inh Inhaler INH SCH (08:11)
[2019-06-06] MEDS: Insulin LISPRO* 1 UNITS UNIT SUBCUT SCH ×3 (08:29→16:17)
[2019-06-06 08:43] LABS: ABS Basophils 0.1 10^3/ul (0-0.2); ABS Eosinophils 0.2 10^3/ul (0-0.6); ABS Lymphocytes 1.4 10^3/ul (1.0-4.8); ABS Monocytes 0.7 10^3/ul (0-0.8); ABS Neutrophils 5.2 10^3/ul (1.5-7.7); Eosinophil % 2.1 %; Hematocrit 28 % (35-47); Hemoglobin 8.4 g/dL (12.0-16.0); Mean Corpuscular HGB Conc 31 g/dL (31-36); Mean Corpuscular Hemoglobin 23 pg (27-31); Mean Corpuscular Volume 76 fL (80-97); Mean Platelet Volume 8.2 fL (7.4-10.4); Nucleated Red Blood Cells % 0.2; Platelet Count 259 10^3/uL (150-450); Red Blood Count 3.65 10^6 /uL (3.70-4.87); Red Cell Distribution Width 19 % (10-15); White Blood Count 7.5 10^3/uL (3.5-10.8)
[2019-06-06 09:01] LABS: BUN/Creatinine Ratio 20.4 (8-20); Calcium 8.5 mg/dL (8.6-10.3); EGFR African American 42.8 (>60); EGFR Non-African American 35.3 (>60); Phosphorus 3.9 mg/dL (2.5-5.0); Potassium 4.3 mmol/L (3.5-5.0)
[2019-06-06] MEDS: Pantoprazole TAB * 40 MG TAB PO SCH (09:10)
[2019-06-06] MEDS: Furosemide IV* 10 MG/ML 10 ML VIAL (100 MG) IV SCH (09:10)
[2019-06-06] MEDS: Ezetimibe TAB* 10 MG PO SCH (09:10)
[2019-06-06] MEDS: Sertraline* 100 MG TAB PO SCH (09:10)
[2019-06-06] MEDS: Cholecalciferol TAB* 1000 UNITS PO SCH (09:10)
[2019-06-06] MEDS: Amiodarone TAB* 200 MG PO SCH (09:10)
[2019-06-06] MEDS: Metoprolol Succinate XL TAB* 50 MG PO SCH (09:10)
[2019-06-06] MEDS: Spironolactone TAB* 25 MG PO SCH (09:10)
[2019-06-06] MEDS: oxyCODONE/Acetamin 5/325 MG* TAB PO PRN (09:18)
[2019-06-06] MEDS ORDERED: Perflutren Lipid Microsphere* 3 ML VIAL ONE (12:04)
--- NOTE | 2019-06-06 12:20 | PN ---
Subjective Date of Service: 06/06/19 Interval History: Seen this morning. she did have increase congestion and coughing. Her urine output was not as expected to be with the lasix 80 mg bid. Her weight stable did not loose weight overnight. Will place her on lasix drip for at least 24hrs + and limit water/fluid to 2000 cc per 24hrs. Will order 2 view CXR in am to re-evaluate her CHF. If does no show improvement than will need to consider acute on chronic bronchitis to her differential Past Medical History: Unchanged from Admission Objective Active Medications: Acetaminophen (Tylenol Tab*) 650 mg PO Q6H PRN PRN Reason: PAIN - MILD Last Admin: 06/05/19 21:27 Dose: 650 mg Albuterol (Ventolin 2.5 Mg/3 Ml Neb.Lorie*) 2.5 mg INH Q4H PRN PRN Reason: SOB/WHEEZING Alprazolam (Xanax Tab*) 0.5 mg PO TID PRN PRN Reason: ANXIETY Last Admin: 06/05/19 21:28 Dose: 0.5 mg Amiodarone HCl (Cordarone Tab*) 200 mg PO DAILY [facility] Last Admin: 06/06/19 09:10 Dose: 200 mg Atorvastatin Calcium (Lipitor*) 80 mg PO BEDTIME [facility] Last Admin: 06/05/19 21:27 Dose: 80 mg Cholecalciferol (Vitamin D Tab*) 1,000 units PO DAILY [facility] Last Admin: 06/06/19 09:10 Dose: 1,000 units Dextrose (Dextrose 50% Vial 50 Ml*) 25 ml IV PUSH .FOR FS < 60 - SS PRN PRN Reason: FS < 60 Ezetimibe (Zetia Tab*) 10 mg PO DAILY [facility] Last Admin: 06/06/19 09:10 Dose: 10 mg Enoxaparin Sodium (Lovenox(*)) 40 mg SUBCUT 2100 [facility] Last Admin: 06/05/19 21:26 Dose: 40 mg Furosemide 100 mg/ Sodium (Chloride) 100 mls @ 10 mls/hr IV Q10H [facility]; Protocol Insulin Human Lispro (Humalog*) 0 units SUBCUT AC [facility]; Protocol Last Admin: 06/06/19 11:38 Dose: Not Given Melatonin (Melatonin) 3 mg PO 2200 [facility] Last Admin: 06/05/19 21:28 Dose: 3 mg Metoprolol Succinate (Toprol Xl Tab*) 50 mg PO DAILY [facility] Last Admin: 06/06/19 09:10 Dose: 50 mg Mometasone Furoate (Asmanex 220 Mcg Mdi *) 2 puff INH QPM [facility] Last Admin: 06/05/19 21:39 Dose: 2 puff Oxycodone/Acetaminophen (Percocet 5/325 Tab*) 1 tab PO Q6H PRN PRN Reason: PAIN - MODERATE Last Admin: 06/06/19 09:18 Dose: 1 tab Pantoprazole Sodium (Protonix Tab*) 40 mg PO DAILY [facility] Last Admin: 06/06/19 09:10 Dose: 40 mg Pregabalin (Lyrica 50 Mg Cap (*)) 50 mg PO BEDTIME [facility] Last Admin: 06/05/19 21:28 Dose: 50 mg Sertraline HCl (Zoloft*) 200 mg PO DAILY [facility] Last Admin: 06/06/19 09:10 Dose: 200 mg Spironolactone (Aldactone Tab*) 25 mg PO DAILY [facility] Last Admin: 06/06/19 09:10 Dose: 25 mg Tiotropium [place] (Spiriva Respimat 2.5 Mcg) 2 puff INH DAILY [facility] Last Admin: 06/06/19 08:11 Dose: 2 puff Vital Signs - 8 hr 06/06/19 06/06/19 06/06/19 07:15 08:12 09:18 Temperature 97.4 F Pulse Rate 59 60 Respiratory 20 18 18 Rate Blood Pressure 117/50 (mmHg) O2 Sat by Pulse 100 95 Oximetry 06/06/19 11:38 Temperature Pulse Rate Respiratory 22 Rate Blood Pressure (mmHg) O2 Sat by Pulse Oximetry Oxygen Devices in Use Now: Nasal Cannula Appearance: awake, alert. in chair, no distress. audible wheesing with exertion Eyes: No Scleral Icterus, - - EOMI Ears/Nose/Mouth/Throat: Clear Oropharnyx, Mucous Membranes Moist Neck: NL Appearance and Movements; NL JVP, Trachea Midline Respiratory: - - coarse rhonchi, fine expiratory wheezing and minimal transmitted upper airway breath sound Cardiovascular: NL Sounds; No Murmurs; No JVD, - - +3 edema Abdominal: NL Sounds; No Tenderness; No Distention, - - large ventral hernia, non tender Extremities: No Edema, - - +3 edema Neurological: Alert and Oriented x 3 Result Diagrams: 06/06/19 08:23 06/06/19 08:23 Assess/Plan/Problems-Billing Assessment: 68 y/o female admitted for failed outpatient oral torsemide. admitted for IV lasix - Patient Problems (1) Acute on chronic diastolic heart failure Current Visit: No Status: Acute Code(s): I50.33 - ACUTE ON CHRONIC DIASTOLIC (CONGESTIVE) HEART FAILURE SNOMED Code(s): 292718235 Comment: - Failing outpatient po Torsemide, - not responding as hoped to her IV lasix 80 mg IV bid. - I will transtion to lasix drip and will Continue aldactone 25 mg daily. - Continue Daily weight and I/O. will restrict fluid intake to 2000 cc per 24hrs - Recheck Echo to reassess LV functions. recheck CCR 2 views in am. if she does not respond favorably to lasix drip will consider acute bronchits, COPD to her differential. (2) S/P aortic valve replacement with bioprosthetic valve Current Visit: No Status: Chronic Priority: Low Code(s): Z95.4 - PRESENCE OF OTHER HEART-VALVE REPLACEMENT SNOMED Code(s): 8074964140758 Comment: - Porcine valve noted with stable function on ECHO 08/24/18 - Recheck Echo (ordered today) to reassess her valve and her EF (3) Atrial fibrillation Current Visit: No Status: Acute Code(s): I48.91 - UNSPECIFIED ATRIAL FIBRILLATION SNOMED Code(s): 94340611 Comment: - Paced, Continue Amio 200 mg daily and toprol XL 50 mg daily - Due to h/o recurrent GI bleeding from AVM, not on anticoagulation. ( documented previously in her chart " Colonoscopy done at [place] showed diverticulosis, few non-bleeding colonic angioectasias treated with APC." (4) COPD (chronic obstructive pulmonary disease) Current Visit: No Status: Chronic Priority: Medium Code(s): J44.9 - CHRONIC OBSTRUCTIVE PULMONARY DISEASE, UNSPECIFIED SNOMED Code(s): 55617395 Comment: - stable. Continue neb, Asmanex and spiriva (5) DM2 (diabetes mellitus, type 2) Current Visit: No Status: Chronic Comment: On SSI (6) HLD (hyperlipidemia) Current Visit: No Status: Chronic Code(s): E78.5 - HYPERLIPIDEMIA, UNSPECIFIED SNOMED Code(s): 99303199 Comment: - Continue lipitor 80mg and ezitimbe 10 mg daily (7) Depression Current Visit: No Status: Chronic Code(s): F32.9 - MAJOR DEPRESSIVE DISORDER , SINGLE EPISODE, UNSPECIFIED SNOMED Code(s): 53396096 Comment: - Continue xanax and zoloft. (8) DVT prophylaxis Current Visit: No Status: Acute Code(s): RZZ8041 - SNOMED Code(s): 714823933 Comment: - SQ Lovenox
--- NOTE | 2019-06-06 15:49 | ECHO ---
*[facility]* [place] [address] Fax #: [phone] Transthoracic Echocardiogram Patient: Mercy Ziegler : 1950 Study Date: 06/06/2019 Age: 68 Gender: F HR: 60 bpm Height: 64 in /162.6 cm BSA: 2.3 m^2 Weight: 291.4 lb /132.5 kg BMI: 50.1 kg/m^2 *Commercial Engineer: Urszula Marin *Referring Physician: * Liang MeltonReading Physician: Israel Morgan MD History: Prosthetic valve. Coronary artery disease. Congestive heart failure. Labs, prior tests, procedures, and surgery: Coronary artery bypass grafting. Conclusions Summary: - Left atrium: The atrium is moderately to severely dilated. - Mitral valve: There is moderate regurgitation, with multiple jets. Regurgitation has increased in comparison with the study of August 2018. - Pulmonary arteries: Systolic pressure is mildly increased, estimated to be 40 mm Hg. Study data: Transthoracic echocardiogram. Procedure: Transthoracic echocardiography was performed. Image quality was suboptimal. Intravenous Definity , 2 mlswas administered. Complete 2D, spectral Doppler, and color flow Doppler. Location: Bedside. Patient status: Inpatient. Patient room number: 443-01. The previous study was not available, so comparison is made to the report of August 2018. Rhythm: Paced rhythm. Findings Left ventricle: The cavity size is dilated. Wall thickness is moderately increased. Systolic function is normal. The estimated ejection fraction is 55-60%. Systolic function is improved from the study of August 2018. Regional wall motion abnormalities: Hypokinesis of the inferoseptal basilar myocardium. Features are consistent with a pseudonormal left ventricular filling pattern, with concomitant abnormal relaxation and increased filling pressure (grade 2 diastolic dysfunction). Right ventricle: The cavity size is dilated. Wall thickness is mildly increased. Pacer wire noted in the right ventricle. Systolic function is mildly reduced. Left atrium: The atrium is moderately to severely dilated. Right atrium: The atrium is dilated. Pacer wire noted in right atrium. Atrial septum: No defect or patent foramen ovale is identified. Mitral valve: Appears moderately calcified. The leaflets are normal thickness. There is no evidence of stenosis. There is moderate regurgitation, with multiple jets. Regurgitation has increased in comparison with the study of August 2018. Aortic valve: There is a bioprosthetic valve. Grossly normal function by doppler. Suboptimal visualization. The annulus is normal-sized. There is no evidence of stenosis. There is no significant regurgitation. Tricuspid valve: The valve is structurally normal. There is no evidence of stenosis. There is trace regurgitation. Pulmonic valve: The valve is structurally normal. There is no evidence of stenosis. There is trace to mild regurgitation. Aorta: The aortic root appears normal. Pulmonary arteries: Systolic pressure is mildly increased, estimated to be 40 mm Hg. Systemic veins: Inferior vena cava: The vessel is normal in size. There is (< 50%) respiratory change in the IVC dimension. Pulmonary veins: Not well visualized. Measurements Left ventricle Value Ref Aortic valve Value Ref JOSE LUIS, LAX (H) 6.2 cm 3.8 - 5.2 Peak v, S 2.3 m/sec ----- ESD, LAX (H) 4.2 cm 2.2 - 3.5 VTI, S 59.3 cm ----- FS, LAX 32 % 45 Mean grad, S 12.0 mm Hg ----- PW, ED, LAX (H) 1.7 cm 0.6 - 0.9 Peak grad, S 21.0 mm Hg ----- FS 32 % 45 BARI, VTI 1.19 cm^2 ----- Mid-wall FS 14 % BARI, Vmax 1.04 cm^2 ----- PW, ED (H) 1.7 cm 0.6 - 0.9 PW/ID, ED 0.27 Mitral valve Value Ref E', lat michelle, TDI 13.6 cm/sec >=10.0 Peak E 1.7 m/sec ----- E/e', lat michelle, 13 Peak A 0 m/sec --- -- TDI Decel time 348 ms ----- E', med michelle, TDI 9.5 cm/sec >=7.0 Peak grad, D 11.6 mm Hg ----- E/e', med michelle, 18 ERO, PISA 0.22 cm^2 --- -- TDI MR vol, PISA 41 ml ----- E', avg, TDI 11.6 cm/sec MR fraction, PISA 37 % --- -- E/e', avg, TDI (H) 15 <=14 Pulmonic valve Value Ref LVOT Value Ref Peak v, S 0.67 m/sec ----- Diam, S 2.00 cm Peak grad, S 2.0 mm Hg ----- Area 3.1 cm^2 Peak cb, S 0.76 m/sec Tricuspid valve Value Ref Mean grad, S 1 mm Hg TR peak v (H) 2.95 m/sec <=2.8 SV 70 ml Peak RV-RA grad, S 35 mm Hg ----- Max TR cb 2.71 m/sec ----- Ventricular septum Value Ref IVS, ED (H) 1.4 cm 0.6 - 0.9 Aortic root Value Ref Root diam 3.5 cm <4.4 Right ventricle Value Ref AW thickness, ED (H) 0.7 cm 0.1 - 0.5 Ascending aorta Value Ref JOSE LUIS, LAX 4.3 cm AAo AP diam, S 3.2 cm ----- Left atrium Value Ref Aortic arch Value Ref AP dim, ES (H) 4.10 cm 2.70 - Arch diam 1.8 cm ----- 3.80 ML dim, A4C 4.7 cm Inferior vena cava Value Ref SI dim, A4C 7.7 cm Diam 2.2 cm ----- Vol/bsa, ES, 1-p (H) 64 ml/m^2 11 - 40 A4C Vol/bsa, ES, A/L (H) 80 ml/m^2 16 - 34 Right atrium Value Ref SI dim, ES (H) 5.5 cm 3.4 - 5.3 ML dim, ES, A4C (H) 5.6 cm 2.6 - 4.4 SI dim, ES, A4C (H) 5.5 cm 3.4 - 5.3 Legend: (L) and (H) charanjit values outside specified reference range. Prepared and electronically signed by Israel Levine MD 06/06/2019 15:48
[2019-06-06] MEDS: Furosemide IV* 100 MG in NS 0.9% 100 ML* 90 ML IV SCH ×2 (16:12→19:00)
[2019-06-06] MEDS: Mometasone 220 MCG MDI INH SCH (19:48)
[2019-06-06] MEDS: Atorvastatin* 80 MG TAB PO SCH (20:15)
[2019-06-06] MEDS: Pregabalin 50 mg CAP (*) PO SCH (20:15)
[2019-06-06] MEDS: Enoxaparin(*) 40 MG/0.4 ML SYR SUBCUT SCH (20:15)
[2019-06-06] MEDS: ALPRAZolam TAB* 0.5 MG PO PRN (20:15)
[2019-06-06] MEDS: Melatonin 3 MG TAB PO SCH (20:15)
[2019-06-06] MEDS: Acetaminophen TAB* 325 MG PO PRN (20:20)
[2019-06-06] MEDS ORDERED: Furosemide IV* 100 MG in NS 0.9% 100 ML* 90 ML IV SCH (21:30)
[2019-06-07 06:51] LABS: BUN/Creatinine Ratio 22.4 (8-20); Calcium 8.3 mg/dL (8.6-10.3); EGFR African American 42.8 (>60); EGFR Non-African American 35.3 (>60)
[2019-06-07] MEDS: SPIRIVA Respimat* (tiotropium) 2.5 mcg/inh Inhaler INH SCH (08:07)
[2019-06-07] MEDS: Insulin LISPRO* 1 UNITS UNIT SUBCUT SCH ×3 (08:29→16:45)
[2019-06-07] MEDS: oxyCODONE/Acetamin 5/325 MG* TAB PO PRN ×2 (09:08→20:51)
[2019-06-07] MEDS: Cholecalciferol TAB* 1000 UNITS PO SCH (09:08)
[2019-06-07] MEDS: Ezetimibe TAB* 10 MG PO SCH (09:08)
[2019-06-07] MEDS: Metoprolol Succinate XL TAB* 50 MG PO SCH (09:09)
[2019-06-07] MEDS: Sertraline* 100 MG TAB PO SCH (09:09)
[2019-06-07] MEDS: Pantoprazole TAB * 40 MG TAB PO SCH (09:09)
[2019-06-07] MEDS: Amiodarone TAB* 200 MG PO SCH (09:09)
--- NOTE | 2019-06-07 12:23 | PN ---
Subjective Date of Service: 06/07/19 Interval History: patient seen today, feels better now that she is on lasix drip with good urine output. She dropped 10 lbs since admission. Her BP was low hence the drip was decreased from 10 mg to 5 mg. Urine output was around 400 ml per hour now down to 100-150 ml/hr. No chest pain. Past Medical History: Unchanged from Admission Objective Active Medications: Acetaminophen (Tylenol Tab*) 650 mg PO Q6H PRN PRN Reason: PAIN - MILD Last Admin: 06/06/19 20:20 Dose: 650 mg Albuterol (Ventolin 2.5 Mg/3 Ml Neb.Lorie*) 2.5 mg INH Q4H PRN PRN Reason: SOB/WHEEZING Alprazolam (Xanax Tab*) 0.5 mg PO TID PRN PRN Reason: ANXIETY Last Admin: 06/06/19 20:15 Dose: 0.5 mg Amiodarone HCl (Cordarone Tab*) 200 mg PO DAILY [facility] Last Admin: 06/07/19 09:09 Dose: 200 mg Atorvastatin Calcium (Lipitor*) 80 mg PO BEDTIME [facility] Last Admin: 06/06/19 20:15 Dose: 80 mg Cholecalciferol (Vitamin D Tab*) 1,000 units PO DAILY [facility] Last Admin: 06/07/19 09:08 Dose: 1,000 units Dextrose (Dextrose 50% Vial 50 Ml*) 25 ml IV PUSH .FOR FS < 60 - SS PRN PRN Reason: FS < 60 Ezetimibe (Zetia Tab*) 10 mg PO DAILY [facility] Last Admin: 06/07/19 09:08 Dose: 10 mg Enoxaparin Sodium (Lovenox(*)) 40 mg SUBCUT 2100 [facility] Last Admin: 06/06/19 20:15 Dose: 40 mg Furosemide 100 mg/ Sodium (Chloride) 100 mls @ 5 mls/hr IV Q20H [facility]; Protocol Last Admin: 06/06/19 21:30 Dose: 5 mls/hr Insulin Human Lispro (Humalog*) 0 units SUBCUT AC [facility]; Protocol Last Admin: 06/07/19 12:10 Dose: 2 units Melatonin (Melatonin) 3 mg PO 2200 [facility] Last Admin: 06/06/19 20:15 Dose: 3 mg Metoprolol Succinate (Toprol Xl Tab*) 50 mg PO DAILY [facility] Last Admin: 06/07/19 09:09 Dose: 50 mg Mometasone Furoate (Asmanex 220 Mcg Mdi *) 2 puff INH QPM [facility] Last Admin: 06/06/19 19:48 Dose: 2 puff Oxycodone/Acetaminophen (Percocet 5/325 Tab*) 1 tab PO Q6H PRN PRN Reason: PAIN - MODERATE Last Admin: 06/07/19 09:08 Dose: 1 tab Pantoprazole Sodium (Protonix Tab*) 40 mg PO DAILY [facility] Last Admin: 06/07/19 09:09 Dose: 40 mg Pregabalin (Lyrica 50 Mg Cap (*)) 50 mg PO BEDTIME [facility] Last Admin: 06/06/19 20:15 Dose: 50 mg Sertraline HCl (Zoloft*) 200 mg PO DAILY [facility] Last Admin: 06/07/19 09:09 Dose: 200 mg Tiotropium [place] (Spiriva Respimat 2.5 Mcg) 2 puff INH DAILY [facility] Last Admin: 06/07/19 08:07 Dose: Not Given Vital Signs - 8 hr 06/07/19 06/07/19 06/07/19 06:12 07:57 08:00 Temperature 97.6 F Pulse Rate 65 59 Respiratory 16 20 Rate Blood Pressure 105/56 94/44 (mmHg) O2 Sat by Pulse 99 Oximetry 06/07/19 06/07/19 06/07/19 08:35 09:08 11:15 Temperature 97.6 F Pulse Rate 59 Respiratory 18 16 Rate Blood Pressure 126/64 105/44 (mmHg) O2 Sat by Pulse 99 Oximetry 06/07/19 11:44 Temperature Pulse Rate Respiratory 18 Rate Blood Pressure (mmHg) O2 Sat by Pulse Oximetry Oxygen Devices in Use Now: Nasal Cannula Appearance: awake, alert. no distress. Tolerating lasix drip so far Eyes: No Scleral Icterus Ears/Nose/Mouth/Throat: NL Teeth, Lips, Gums, Mucous Membranes Moist Neck: NL Appearance and Movements; NL JVP, Trachea Midline Respiratory: - - rales, improving Cardiovascular: NL Sounds; No Murmurs; No JVD, - - +3 edema Abdominal: NL Sounds; No Tenderness; No Distention - ventral hernia Extremities: - - chronic venous stasis, edema +3 Result Diagrams: 06/06/19 08:23 06/07/19 06:00 Assess/Plan/Problems-Billing Assessment: 68 y/o female admitted for failed outpatient oral torsemide. admitted for IV lasix - Patient Problems (1) Acute on chronic diastolic heart failure Current Visit: No Status: Acute Code(s): I50.33 - ACUTE ON CHRONIC DIASTOLIC (CONGESTIVE) HEART FAILURE SNOMED Code(s): 240450739 Comment: - Failing outpatient po Torsemide, - not responding as hoped to her IV lasix 80 mg IV bid. - better on lasix drip. I held aldactone 25 mg daily to soft BP while on lasix drip. - Continue Daily weight and I/O. will restrict fluid intake to 2000 cc per 24hrs - Echo 06/06/18 EF 55-60%. Grade -2 Diastollic dysfucntion. Moderate mitral regurgitations worsened when compared to 08/2018. Bioprosthetic aortic valve functioning properly. PA pressure 40mmHG - CXR 06/07/18 better when compared to 06/04/18. (2) S/P aortic valve replacement with bioprosthetic valve Current Visit: No Status: Chronic Priority: Low Code(s): Z95.4 - PRESENCE OF OTHER HEART-VALVE REPLACEMENT SNOMED Code(s): 9394942186301 Comment: - Porcine valve noted with stable function on ECHO 08/24/18 - Echo 06/06/18 EF 55-60%. Grade -2 Diastollic dysfucntion. Moderate mitral regurgitations worsened when compared to 08/2018. Bioprosthetic aortic valve functioning properly. 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 ( documented previously in her chart " Colonoscopy done at [place] showed diverticulosis, few non-bleeding colonic angioectasias treated with APC." (4) Left leg DVT Current Visit: No Status: Acute Code(s): I82.402 - ACUTE EMBOLISM AND THOMBOS UNSP DEEP VEINS OF L LOW EXTREM SNOMED Code(s): 684737122 Comment: - Pt with LLE DVT seen on 05/29/19 Chronic DVT seen on 03/06/2018. V /Q scan at that time was low Probability for PE. 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 ( documented previously in her chart " Colonoscopy done at [place] showed diverticulosis, few non-bleeding colonic angioectasias treated with APC." (5) COPD (chronic obstructive pulmonary disease) Current Visit: No Status: Chronic Priority: Medium Code(s): J44.9 - CHRONIC OBSTRUCTIVE PULMONARY DISEASE, UNSPECIFIED SNOMED Code(s): 01041505 Comment: - stable. Continue neb, Asmanex and spiriva (6) DM2 (diabetes mellitus, type 2) Current Visit: No Status: Chronic Comment: On SSI (7) HLD (hyperlipidemia) Current Visit: No Status: Chronic Code(s): E78.5 - HYPERLIPIDEMIA, UNSPECIFIED SNOMED Code(s): 13334414 Comment: - Continue lipitor 80mg and ezitimbe 10 mg daily (8) Depression Current Visit: No Status: Chronic Code(s): F32.9 - MAJOR DEPRESSIVE DISORDER , SINGLE EPISODE, UNSPECIFIED SNOMED Code(s): 39869028 Comment: - Continue xanax and zoloft. (9) DVT prophylaxis Current Visit: No Status: Acute Code(s): RQC8672 - SNOMED Code(s): 363960685 Comment: - SQ Lovenox
[2019-06-07] MEDS: Furosemide IV* 100 MG in NS 0.9% 100 ML* 90 ML IV SCH (15:23)
[2019-06-07] MEDS: Mometasone 220 MCG MDI INH SCH (16:52)
[2019-06-07] MEDS: Pregabalin 50 mg CAP (*) PO SCH (20:51)
[2019-06-07] MEDS: Melatonin 3 MG TAB PO SCH (20:51)
[2019-06-07] MEDS: Enoxaparin(*) 40 MG/0.4 ML SYR SUBCUT SCH (20:51)
[2019-06-07] MEDS: Atorvastatin* 80 MG TAB PO SCH (20:51)
[2019-06-08] MEDS: Furosemide IV* 100 MG in NS 0.9% 100 ML* 90 ML IV SCH ×2 (04:30→09:11)
[2019-06-08 05:25] LABS: BUN/Creatinine Ratio 22.1 (8-20); Calcium 8.3 mg/dL (8.6-10.3); EGFR African American 42.1 (>60); EGFR Non-African American 34.8 (>60); Magnesium 1.9 mg/dL (1.9-2.7); Phosphorus 3.9 mg/dL (2.5-5.0); Potassium 3.8 mmol/L (3.5-5.0)
[2019-06-08] MEDS: SPIRIVA Respimat* (tiotropium) 2.5 mcg/inh Inhaler INH SCH (08:11)
[2019-06-08] MEDS: Ezetimibe TAB* 10 MG PO SCH (08:53)
[2019-06-08] MEDS: Amiodarone TAB* 200 MG PO SCH (08:54)
[2019-06-08] MEDS: Sertraline* 100 MG TAB PO SCH (08:54)
[2019-06-08] MEDS: Pantoprazole TAB * 40 MG TAB PO SCH (08:54)
[2019-06-08] MEDS: Cholecalciferol TAB* 1000 UNITS PO SCH (08:54)
[2019-06-08] MEDS: Insulin LISPRO* 1 UNITS UNIT SUBCUT SCH ×3 (08:57→17:01)
[2019-06-08] MEDS: oxyCODONE/Acetamin 5/325 MG* TAB PO PRN ×2 (09:10→20:53)
[2019-06-08] MEDS ORDERED: Dextrose 50% Syringe 50 ML* 25 GM/50 ML SYRINGE IV PUSH PRN (12:45)
--- NOTE | 2019-06-08 15:14 | PN ---
Subjective Date of Service: 06/08/19 Interval History: Patient seen today, no acute distress. Tolerating Lasix drip well. Increased the drip to 8 mg today. Will continue to monitor output. Possible transition to Bumex tomorrow and discharge on tuesday if she tolerated po bumex and respond appropriately Past Medical History: Unchanged from Admission Objective Active Medications: Acetaminophen (Tylenol Tab*) 650 mg PO Q6H PRN PRN Reason: PAIN - MILD Last Admin: 06/06/19 20:20 Dose: 650 mg Albuterol (Ventolin 2.5 Mg/3 Ml Neb.Lorie*) 2.5 mg INH Q4H PRN PRN Reason: SOB/WHEEZING Alprazolam (Xanax Tab*) 0.5 mg PO TID PRN PRN Reason: ANXIETY Last Admin: 06/06/19 20:15 Dose: 0.5 mg Amiodarone HCl (Cordarone Tab*) 200 mg PO DAILY [facility] Last Admin: 06/08/19 08:54 Dose: 200 mg Atorvastatin Calcium (Lipitor*) 80 mg PO BEDTIME [facility] Last Admin: 06/07/19 20:51 Dose: 80 mg Cholecalciferol (Vitamin D Tab*) 1,000 units PO DAILY [facility] Last Admin: 06/08/19 08:54 Dose: 1,000 units Dextrose (D50w Syringe 50 Ml*) 12.5 gm IV PUSH .FOR FS < 60 - SS PRN PRN Reason: FS < 60 Ezetimibe (Zetia Tab*) 10 mg PO DAILY [facility] Last Admin: 06/08/19 08:53 Dose: 10 mg Enoxaparin Sodium (Lovenox(*)) 40 mg SUBCUT 2100 [facility] Last Admin: 06/07/19 20:51 Dose: 40 mg Furosemide 100 mg/ Sodium (Chloride) 100 mls @ 8 mls/hr IV Q14H [facility]; Protocol Last Admin: 06/08/19 09:11 Dose: 8 mls/hr Insulin Human Lispro (Humalog*) 0 units SUBCUT AC [facility]; Protocol Last Admin: 06/08/19 12:20 Dose: Not Given Melatonin (Melatonin) 3 mg PO 2200 [facility] Last Admin: 06/07/19 20:51 Dose: 3 mg Metoprolol Succinate (Toprol Xl Tab*) 25 mg PO BEDTIME [facility] Mometasone Furoate (Asmanex 220 Mcg Mdi *) 2 puff INH QPM [facility] Last Admin: 06/07/19 16:52 Dose: 2 puff Oxycodone/Acetaminophen (Percocet 5/325 Tab*) 1 tab PO Q6H PRN PRN Reason: PAIN - MODERATE Last Admin: 06/08/19 09:10 Dose: 1 tab Pantoprazole Sodium (Protonix Tab*) 40 mg PO DAILY [facility] Last Admin: 06/08/19 08:54 Dose: 40 mg Pregabalin (Lyrica 50 Mg Cap (*)) 50 mg PO BEDTIME [facility] Last Admin: 06/07/19 20:51 Dose: 50 mg Sertraline HCl (Zoloft*) 200 mg PO DAILY [facility] Last Admin: 06/08/19 08:54 Dose: 200 mg Tiotropium [place] (Spiriva Respimat 2.5 Mcg) 2 puff INH DAILY [facility] Last Admin: 06/08/19 08:11 Dose: 2 puff Vital Signs - 8 hr 06/08/19 06/08/19 06/08/19 07:15 08:00 09:10 Temperature 97.4 F Pulse Rate 60 Respiratory 16 18 18 Rate Blood Pressure 112/58 (mmHg) O2 Sat by Pulse 99 Oximetry 06/08/19 06/08/19 11:15 12:08 Temperature 97.7 F Pulse Rate 60 Respiratory 16 20 Rate Blood Pressure 99/51 (mmHg) O2 Sat by Pulse 98 Oximetry Oxygen Devices in Use Now: Nasal Cannula Appearance: obese, in chair. resting. no distress Eyes: No Scleral Icterus, - - EOMI Ears/Nose/Mouth/Throat: Clear Oropharnyx, Mucous Membranes Moist Neck: Trachea Midline Respiratory: Symmetrical Chest Expansion and Respiratory Effort, Clear to Auscultation, - Cardiovascular: NL Sounds; No Murmurs; No JVD, - - +3 edema bilateral Abdominal: NL Sounds; No Tenderness; No Distention Extremities: - - + 3 edema Result Diagrams: 06/06/19 08:23 06/08/19 04:43 Assess/Plan/Problems-Billing Assessment: 68 y/o female admitted for failed outpatient oral torsemide. admitted for IV lasix - Patient Problems (1) Acute on chronic diastolic heart failure Current Visit: No Status: Acute Code(s): I50.33 - ACUTE ON CHRONIC DIASTOLIC (CONGESTIVE) HEART FAILURE SNOMED Code(s): 714460202 Comment: - Failing outpatient po Torsemide, - not responding as hoped to her IV lasix 80 mg IV bid. - better on lasix drip. I held aldactone 25 mg daily to soft BP while on lasix drip. - Continue Daily weight and I/O. will restrict fluid intake to 2000 cc per 24hrs - Echo 06/06/18 EF 55-60%. Grade -2 Diastollic dysfucntion. Moderate mitral regurgitations worsened when compared to 08/2018. Bioprosthetic aortic valve functioning properly. PA pressure 40mmHG - CXR 06/07/18 better when compared to 06/04/18. - Increased lasix drip to 8 mg and BP allow will increase to 9 mg. Possible transition to po bumex in am (2) S/P aortic valve replacement with bioprosthetic valve Current Visit: No Status: Chronic Priority: Low Code(s): Z95.4 - PRESENCE OF OTHER HEART-VALVE REPLACEMENT SNOMED Code(s): 9252842934068 Comment: - Porcine valve noted with stable function on ECHO 08/24/18 - Echo 06/06/18 EF 55-60%. Grade -2 Diastollic dysfucntion. Moderate mitral regurgitations worsened when compared to 08/2018. Bioprosthetic aortic valve functioning properly. 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 ( documented previously in her chart " Colonoscopy done at [place] showed diverticulosis, few non-bleeding colonic angioectasias treated with APC." (4) Left leg DVT Current Visit: No Status: Acute Code(s): I82.402 - ACUTE EMBOLISM AND THOMBOS UNSP DEEP VEINS OF L LOW EXTREM SNOMED Code(s): 189706966 Comment: - Pt with LLE DVT seen on 05/29/19 Chronic DVT seen on 03/06/2018. V /Q scan at that time was low Probability for PE. 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 ( documented previously in her chart " Colonoscopy done at [place] showed diverticulosis, few non-bleeding colonic angioectasias treated with APC." (5) COPD (chronic obstructive pulmonary disease) Current Visit: No Status: Chronic Priority: Medium Code(s): J44.9 - CHRONIC OBSTRUCTIVE PULMONARY DISEASE, UNSPECIFIED SNOMED Code(s): 71781717 Comment: - stable. Continue neb, Asmanex and spiriva (6) DM2 (diabetes mellitus, type 2) Current Visit: No Status: Chronic Comment: On SSI (7) HLD (hyperlipidemia) Current Visit: No Status: Chronic Code(s): E78.5 - HYPERLIPIDEMIA, UNSPECIFIED SNOMED Code(s): 49706269 Comment: - Continue lipitor 80mg and ezitimbe 10 mg daily (8) Depression Current Visit: No Status: Chronic Code(s): F32.9 - MAJOR DEPRESSIVE DISORDER , SINGLE EPISODE, UNSPECIFIED SNOMED Code(s): 62119370 Comment: - Continue xanax and zoloft. (9) DVT prophylaxis Current Visit: No Status: Acute Code(s): VAD9030 - SNOMED Code(s): 846705784 Comment: - SQ Lovenox
[2019-06-08] MEDS: Mometasone 220 MCG MDI INH SCH (19:48)
[2019-06-08] MEDS: Metoprolol Succinate XL TAB* 25 MG PO SCH (20:53)
[2019-06-08] MEDS: Atorvastatin* 80 MG TAB PO SCH (20:53)
[2019-06-08] MEDS: Melatonin 3 MG TAB PO SCH (20:53)
[2019-06-08] MEDS: Pregabalin 50 mg CAP (*) PO SCH (20:53)
[2019-06-08] MEDS: Enoxaparin(*) 40 MG/0.4 ML SYR SUBCUT SCH (20:53)
[2019-06-09] MEDS: Furosemide IV* 100 MG in NS 0.9% 100 ML* 90 ML IV SCH ×4 (00:09→14:25)
[2019-06-09 06:51] LABS: ABS Basophils 0.1 10^3/ul (0-0.2); ABS Eosinophils 0.3 10^3/ul (0-0.6); ABS Lymphocytes 1.4 10^3/ul (1.0-4.8); ABS Monocytes 0.7 10^3/ul (0-0.8); ABS Neutrophils 5.3 10^3/ul (1.5-7.7); Eosinophil % 3.8 %; Hematocrit 28 % (35-47); Hemoglobin 8.7 g/dL (12.0-16.0); Lymphocyte % 17.8 %; Mean Corpuscular HGB Conc 32 g/dL (31-36); Mean Corpuscular Hemoglobin 24 pg (27-31); Mean Corpuscular Volume 75 fL (80-97); Mean Platelet Volume 8.1 fL (7.4-10.4); Nucleated Red Blood Cells % 0.1; Platelet Count 248 10^3/uL (150-450); Red Blood Count 3.68 10^6 /uL (3.70-4.87); Red Cell Distribution Width 20 % (10-15); White Blood Count 7.8 10^3/uL (3.5-10.8)
[2019-06-09 07:12] LABS: BUN/Creatinine Ratio 20.5 (8-20); Calcium 8.6 mg/dL (8.6-10.3); EGFR African American 43.1 (>60); EGFR Non-African American 35.6 (>60); Phosphorus 4.3 mg/dL (2.5-5.0); Potassium 3.6 mmol/L (3.5-5.0)
[2019-06-09] MEDS: SPIRIVA Respimat* (tiotropium) 2.5 mcg/inh Inhaler INH SCH (07:33)
[2019-06-09] MEDS: Insulin LISPRO* 1 UNITS UNIT SUBCUT SCH ×3 (08:48→17:10)
[2019-06-09] MEDS: oxyCODONE/Acetamin 5/325 MG* TAB PO PRN ×2 (09:58→20:55)
[2019-06-09] MEDS: Pantoprazole TAB * 40 MG TAB PO SCH (09:58)
[2019-06-09] MEDS: Amiodarone TAB* 200 MG PO SCH (09:58)
[2019-06-09] MEDS: Ezetimibe TAB* 10 MG PO SCH (09:58)
[2019-06-09] MEDS: Cholecalciferol TAB* 1000 UNITS PO SCH (09:58)
[2019-06-09] MEDS: Sertraline* 100 MG TAB PO SCH (09:58)
--- NOTE | 2019-06-09 14:08 | PN ---
Subjective Date of Service: 06/09/19 Interval History: doing better, decrease 14 lbs and over 9 liter negative fluid balance since admission. most accomplished once on the lasix drip. Doing well. Will D.c drip this afternoon, change to po bumex bid and potential discharge in am Past Medical History: Unchanged from Admission Objective Active Medications: Acetaminophen (Tylenol Tab*) 650 mg PO Q6H PRN PRN Reason: PAIN - MILD Last Admin: 06/06/19 20:20 Dose: 650 mg Albuterol (Ventolin 2.5 Mg/3 Ml Neb.Lorie*) 2.5 mg INH Q4H PRN PRN Reason: SOB/WHEEZING Alprazolam (Xanax Tab*) 0.5 mg PO TID PRN PRN Reason: ANXIETY Last Admin: 06/06/19 20:15 Dose: 0.5 mg Amiodarone HCl (Cordarone Tab*) 200 mg PO DAILY [facility] Last Admin: 06/09/19 09:58 Dose: 200 mg Atorvastatin Calcium (Lipitor*) 80 mg PO BEDTIME [facility] Last Admin: 06/08/19 20:53 Dose: 80 mg Bumetanide (Bumex Tab*) 2 mg PO 0900,1700 [facility] Cholecalciferol (Vitamin D Tab*) 1,000 units PO DAILY [facility] Last Admin: 06/09/19 09:58 Dose: 1,000 units Dextrose (D50w Syringe 50 Ml*) 12.5 gm IV PUSH .FOR FS < 60 - SS PRN PRN Reason: FS < 60 Ezetimibe (Zetia Tab*) 10 mg PO DAILY [facility] Last Admin: 06/09/19 09:58 Dose: 10 mg Enoxaparin Sodium (Lovenox(*)) 40 mg SUBCUT 2100 [facility] Last Admin: 06/08/19 20:53 Dose: 40 mg Furosemide 100 mg/ Sodium (Chloride) 100 mls @ 8 mls/hr IV Q14H [facility]; Protocol Stop: 06/09/19 16:00 Last Admin: 06/09/19 10:05 Dose: 8 mls/hr Insulin Human Lispro (Humalog*) 0 units SUBCUT AC [facility]; Protocol Last Admin: 06/09/19 12:33 Dose: 2 units Melatonin (Melatonin) 3 mg PO 2200 [facility] Last Admin: 06/08/19 20:53 Dose: 3 mg Metoprolol Succinate (Toprol Xl Tab*) 25 mg PO BEDTIME [facility] Last Admin: 06/08/19 20:53 Dose: 25 mg Mometasone Furoate (Asmanex 220 Mcg Mdi *) 2 puff INH QPM [facility] Last Admin: 06/08/19 19:48 Dose: 2 puff Oxycodone/Acetaminophen (Percocet 5/325 Tab*) 1 tab PO Q6H PRN PRN Reason: PAIN - MODERATE Last Admin: 06/09/19 09:58 Dose: 1 tab Pantoprazole Sodium (Protonix Tab*) 40 mg PO DAILY [facility] Last Admin: 06/09/19 09:58 Dose: 40 mg Pregabalin (Lyrica 50 Mg Cap (*)) 50 mg PO BEDTIME [facility] Last Admin: 06/08/19 20:53 Dose: 50 mg Sertraline HCl (Zoloft*) 200 mg PO DAILY [facility] Last Admin: 06/09/19 09:58 Dose: 200 mg Tiotropium Waldron (Spiriva Respimat 2.5 Mcg) 2 puff INH DAILY [facility] Last Admin: 06/09/19 07:33 Dose: 2 puff Vital Signs - 8 hr 06/09/19 06/09/19 06/09/19 07:30 07:33 08:00 Temperature 97.4 F Pulse Rate 60 60 Respiratory 20 18 20 Rate Blood Pressure 129/65 (mmHg) O2 Sat by Pulse 99 99 Oximetry 06/09/19 06/09/19 06/09/19 09:58 10:55 12:33 Temperature 97.8 F Pulse Rate 59 Respiratory 16 18 20 Rate Blood Pressure 109/48 (mmHg) O2 Sat by Pulse 98 Oximetry Oxygen Devices in Use Now: Nasal Cannula Appearance: resting in chair, no distress. Eyes: No Scleral Icterus, - - EOMI Cardiovascular: - - +2 edema, RLE more than left Result Diagrams: 06/09/19 06:27 06/09/19 06:27 Assess/Plan/Problems-Billing Assessment: 68 y/o female admitted for failed outpatient oral torsemide. admitted for IV lasix - Patient Problems (1) Acute on chronic diastolic heart failure Current Visit: No Status: Acute Code(s): I50.33 - ACUTE ON CHRONIC DIASTOLIC (CONGESTIVE) HEART FAILURE SNOMED Code(s): 383292370 Comment: - Failing outpatient po Torsemide, - She did not respond as hoped to her IV lasix 80 mg IV bid. - better on lasix drip. I held aldactone 25 mg daily to soft BP while on lasix drip. - Continue Daily weight and I/O. restrict fluid intake to 2000 cc per 24hrs - Echo 06/06/18 EF 55-60%. Grade -2 Diastollic dysfucntion. Moderate mitral regurgitations worsened when compared to 08/2018. Bioprosthetic aortic valve functioning properly. PA pressure 40mmHG - CXR 06/07/18 better when compared to 06/04/18. - On lasix drip to 8 mg transition to po bumex 2 mg bid this pm (2) S/P aortic valve replacement with bioprosthetic valve Current Visit: No Status: Chronic Priority: Low Code(s): Z95.4 - PRESENCE OF OTHER HEART-VALVE REPLACEMENT SNOMED Code(s): 8594766882790 Comment: - Porcine valve noted with stable function on ECHO 08/24/18 - Echo 06/06/18 EF 55-60%. Grade -2 Diastollic dysfucntion. Moderate mitral regurgitations worsened when compared to 08/2018. Bioprosthetic aortic valve functioning properly. 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 ( documented previously in her chart " Colonoscopy done at [facility] showed diverticulosis, few non-bleeding colonic angioectasias treated with APC." (4) Left leg DVT Current Visit: No Status: Acute Code(s): I82.402 - ACUTE EMBOLISM AND THOMBOS UNSP DEEP VEINS OF L LOW EXTREM SNOMED Code(s): 336539901 Comment: - Pt with LLE DVT seen on 05/29/19 Chronic DVT seen on 03/06/2018. V /Q scan at that time was low Probability for PE. 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 ( documented previously in her chart " Colonoscopy done at [facility] showed diverticulosis, few non-bleeding colonic angioectasias treated with APC." (5) COPD (chronic obstructive pulmonary disease) Current Visit: No Status: Chronic Priority: Medium Code(s): J44.9 - CHRONIC OBSTRUCTIVE PULMONARY DISEASE, UNSPECIFIED SNOMED Code(s): 24782501 Comment: - stable. Continue neb, Asmanex and spiriva (6) DM2 (diabetes mellitus, type 2) Current Visit: No Status: Chronic Comment: On SSI (7) HLD (hyperlipidemia) Current Visit: No Status: Chronic Code(s): E78.5 - HYPERLIPIDEMIA, UNSPECIFIED SNOMED Code(s): 44774256 Comment: - Continue lipitor 80mg and ezitimbe 10 mg daily (8) Depression Current Visit: No Status: Chronic Code(s): F32.9 - MAJOR DEPRESSIVE DISORDER , SINGLE EPISODE, UNSPECIFIED SNOMED Code(s): 56218386 Comment: - Continue xanax and zoloft. (9) DVT prophylaxis Current Visit: No Status: Acute Code(s): IKX9715 - SNOMED Code(s): 995812536 Comment: - SQ Lovenox
[2019-06-09] MEDS: Bumetanide TAB* 2 MG PO SCH (16:57)
[2019-06-09] MEDS: Atorvastatin* 80 MG TAB PO SCH (20:55)
[2019-06-09] MEDS: Metoprolol Succinate XL TAB* 25 MG PO SCH (20:55)
[2019-06-09] MEDS: Enoxaparin(*) 40 MG/0.4 ML SYR SUBCUT SCH (20:55)
[2019-06-09] MEDS: Melatonin 3 MG TAB PO SCH (20:55)
[2019-06-09] MEDS: Pregabalin 50 mg CAP (*) PO SCH (20:55)
[2019-06-09] MEDS: Mometasone 220 MCG MDI INH SCH (21:06)
[2019-06-10] MEDS: SPIRIVA Respimat* (tiotropium) 2.5 mcg/inh Inhaler INH SCH (07:18)
[2019-06-10] MEDS: oxyCODONE/Acetamin 5/325 MG* TAB PO PRN (09:09)
[2019-06-10] MEDS: Bumetanide TAB* 2 MG PO SCH (09:09)
[2019-06-10] MEDS: Amiodarone TAB* 200 MG PO SCH (09:09)
[2019-06-10] MEDS: Cholecalciferol TAB* 1000 UNITS PO SCH (09:09)
[2019-06-10] MEDS: Ezetimibe TAB* 10 MG PO SCH (09:09)
[2019-06-10] MEDS: Sertraline* 100 MG TAB PO SCH (09:09)
[2019-06-10] MEDS: Pantoprazole TAB * 40 MG TAB PO SCH (09:10)
[2019-06-10] MEDS: Insulin LISPRO* 1 UNITS UNIT SUBCUT SCH ×2 (09:10→14:12)
[2019-06-10 11:36] VITALS: BP 111/45
--- NOTE | 2019-06-10 15:11 | DS ---
CC: Dr. Kajal Simons DISCHARGE SUMMARY: DATE OF ADMISSION: 06/04/19 DATE OF DISCHARGE: 06/10/19 PRIMARY CARE PROVIDER: Dr. Kajal Simons. FINAL DISCHARGE DIAGNOSES: 1. Acute on chronic diastolic heart failure. 2. Status post aortic valve replacement, bioprosthetic. 3. Chronic atrial fibrillation. 4. Chronic left lower extremity deep venous thrombosis. 5. Chronic obstructive pulmonary disease. 6. Diabetes mellitus. 7. Hyperlipidemia. 8. Depression. 9. Morbid obesity. 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 On admission, the patient wa s noted to be in significant heart failure diastolic. She was placed on Lasix 80 mg IV b.i.d. She w as seen and evaluated by me the following day and she was maintained on IV Lasix; however, after 24 t o 36 hours, her urine output has subsided and plateaued; therefore, I placed her on Lasix drip. On urther discussion with the patient regarding her history of DVT and PE, she is not eager to have any anticoagulation due to recurrent GI bleed every time she takes warfarin, which is the reason why she has an IVC filter. Therefore, at this time, I elected to pursue the treatment for her heart failure with a Lasix drip, and over the course of the hospitalization, the patient did have significant weigh t loss from 291 pounds down to 278 pounds and greater than 9 to 10 L of negative fluid balance. Toda y, she has decrease in her lower extremity edema, clinically she feels better, and I elected to disch arge her on oral Bumex 2 mg b.i.d. until she is evaluated by her case operator and whether or not they opt to place her back on torsemide or maintain her on Bumex with a different dose, I will defer that for outpatient, but for now she is discharged on Bumex 2 mg b.i.d. Also, I elected not to give her potassium supplement as she does have outpatient medications ramipril and Aldactone. I am afraid wit h those and underlying chronic kidney disease that they can cause hyperkalemia; therefore, I opted to leave her on the ramipril 2.5 and the Aldactone 25 b.i.d. as per home regimen. PHYSICAL EXAMINATION: Vital Signs: Temperature 98, pulse 56, respiratory rate 20, satting 98%, bloo d pressure 111/45. General: She is awake, alert, oriented, obese. Head and Neck: Normocephalic, a traumatic. Supple. Transmitted upper airway breath sounds, clears with cough and sputum production. Extremities: Lower extremity edema, worse on the right. DISCHARGE MEDICATIONS: 1. Bumex 2 mg b.i.d. 2. Zoloft 200 mg every day. 3. Lipitor 80 mg daily. 4. Spiriva 1 inhaler daily. 5. Zetia 10 mg every day. 6. Albuterol p.r.n. 7. Lyrica 50 mg at bedtime. 8. Omeprazole 40 every day. 9. DuoNeb. 10. EpiPen p.r.n. for allergy. 11. Glipizide 2.5 daily. 12. Aldactone 25 twice a day. 13. Ramipril 2.5 daily. 14. Amiodarone every day. 15. Melatonin daily. 16. Bactroban 2%. 17. Metoprolol 50 daily. 18. Metolazone 2.5 every other day. 19. Vitamin D 1000 units every day. 20. Flovent 110 two puffs twice a day. 21. Resume her antibiotic as per outpatient and to complete it as prescribed for her as an outpatien t. 22. Xanax 0.5 three times a day. 23. Percocet as needed. Discontinued medications: 1. The patient was told to discontinue her torsemide. 2. Also, I advised her to discontinue her metformin given her chronic kidney disease. I will defer resuming metformin versus alternating oral hypoglycemic agent to her primary care. DISCHARGE DISPOSITION: Home. DISCHARGE CONDITION: Stable. DISCHARGE RECOMMENDATIONS: Follow up with primary care in 1 to 2 weeks. [id number]/[facility] #: [id number]
== END 2019-06-10 13:46 | disposition home or self-care (01) | DRG 291 ==
LOC: ED 16:02 → MEDTELE 21:52
PROVIDERS: ADMIT Internal Medicine; ATTEND Internal Medicine
DX: I13.0 Hypertensive heart and chronic kidney disease with heart failure and stage 1 through stage 4 chronic kidney disease, or unspecified chronic kidney disease (principal); I50.33 Acute on chronic diastolic (congestive) heart failure; E66.2 Morbid (severe) obesity with alveolar hypoventilation; Z68.42 Body mass index [BMI] 45.0-49.9, adult; I82.502 Chronic embolism and thrombosis of unspecified deep veins of left lower extremity; I48.20 Chronic atrial fibrillation, unspecified; E11.22 Type 2 diabetes mellitus with diabetic chronic kidney disease; N18.3 Chronic kidney disease, stage 3 (moderate); I25.10 Atherosclerotic heart disease of native coronary artery without angina pectoris; I48.0 Paroxysmal atrial fibrillation; E78.00 Pure hypercholesterolemia, unspecified; E11.51 Type 2 diabetes mellitus with diabetic peripheral angiopathy without gangrene; J44.9 Chronic obstructive pulmonary disease, unspecified; K21.9 Gastro-esophageal reflux disease without esophagitis; M19.012 Primary osteoarthritis, left shoulder; M19.011 Primary osteoarthritis, right shoulder; Z96.642 Presence of left artificial hip joint; M41.9 Scoliosis, unspecified; F41.9 Anxiety disorder, unspecified; F32.9 Major depressive disorder, single episode, unspecified; E78.5 Hyperlipidemia, unspecified; D63.1 Anemia in chronic kidney disease; G89.29 Other chronic pain; Z87.891 Personal history of nicotine dependence; Z88.8 Allergy status to other drugs, medicaments and biological substances; Z95.2 Presence of prosthetic heart valve; Z86.74 Personal history of sudden cardiac arrest; Z95.0 Presence of cardiac pacemaker; Z95.1 Presence of aortocoronary bypass graft; Z91.030 Bee allergy status; Z91.041 Radiographic dye allergy status; Z91.013 Allergy to seafood; Z93.3 Colostomy status; Z91.19 Patient's noncompliance with other medical treatment and regimen; Z79.84 Long term (current) use of oral hypoglycemic drugs; Z79.899 Other long term (current) drug therapy
CPT/HCPCS: 36415; 71046; 80048; 80053; 81003; 83605; 83735; 83880; 84100; 84484; 85025; 86140; 93005; 93306; 94640; 99284; A9270-GY; J1650; J1940; J2930; J3475; J3535

== ENCOUNTER 2020-04-10 16:48 | Inpatient (IN) ==
[2020-04-10 18:32] LABS: ABS Basophils 0.1 10^3/ul (0-0.2); ABS Lymphocytes 0.9 10^3/ul (1.0-4.8); ABS Monocytes 0.9 10^3/ul (0-0.8); ABS Neutrophils 6.5 10^3/ul (1.5-7.7); Eosinophil % 0.6 %; Hematocrit 32 % (35-47); Hemoglobin 10.1 g/dL (12.0-16.0); Lymphocyte % 11.2 %; Mean Corpuscular HGB Conc 32 g/dL (31-36); Mean Corpuscular Hemoglobin 26 pg (27-31); Mean Corpuscular Volume 84 fL (80-97); Mean Platelet Volume 8.8 fL (7.4-10.4); Nucleated Red Blood Cells % 0.1; Platelet Count 186 10^3/uL (150-450); Red Blood Count 3.82 10^6 /uL (3.70-4.87); Red Cell Distribution Width 18 % (10-15); White Blood Count 8.5 10^3/uL (3.5-10.8)
[2020-04-10 18:44] LABS: Albumin 3.6 g/dL (3.2-5.2); BUN/Creatinine Ratio 47.2 (8-20); C Reactive Protein 15.86 mg/L (<8.01); Calcium 8.7 mg/dL (8.6-10.3); EGFR African American 30.8 (>60); EGFR Non-African American 25.4 (>60); Globulin 3.5 g/dL (2-4); Potassium 3.7 mmol/L (3.5-5.0); Total Bilirubin 0.7 mg/dL (0.2-1.0); Total Protein 7.1 g/dL (6.4-8.9); Troponin I 0.01 ng/mL (<0.03)
[2020-04-10 21:58] LABS: Urine Appearance Cloudy; Urine Bilirubin Negative (Negative); Urine Blood Negative (Negative); Urine Color Yellow; Urine Glucose Negative (Negative); Urine Ketones Negative (Negative); Urine Nitrite Negative (Negative); Urine Protein Negative (Negative); Urine Specific Gravity 1.011 (1.010-1.030); Urine Urobilinogen Negative (Negative)
[2020-04-10] MEDS ORDERED: EPINEPHRINE 0.3 MG IM PRN (23:30)
[2020-04-10] MEDS ORDERED: Albuterol 2.5mg/3 ml (0.083%) NEB.SOLN INH PRN (23:30)
[2020-04-10] MEDS ORDERED: Furosemide 100 mg/10 ml IV VIAL IV SCH (23:45)
[2020-04-11] MEDS ORDERED: Dextrose 50% Syringe 50 ml 25 GM/50 ML SYRINGE IV PUSH PRN (00:32)
[2020-04-11] MEDS: Mometasone 220 MCG MDI INH SCH ×2 (05:20→19:50)
[2020-04-11] MEDS ORDERED: Heparin 5000 UNITS/ML 1 mL VIAL SUBCUT SCH (06:00)
[2020-04-11 06:31] LABS: ABS Basophils 0.1 10^3/ul (0-0.2); ABS Lymphocytes 0.8 10^3/ul (1.0-4.8); ABS Monocytes 0.7 10^3/ul (0-0.8); ABS Neutrophils 5.1 10^3/ul (1.5-7.7); Eosinophil % 0.3 %; Hematocrit 30 % (35-47); Hemoglobin 9.8 g/dL (12.0-16.0); Lymphocyte % 11.8 %; Mean Corpuscular HGB Conc 32 g/dL (31-36); Mean Corpuscular Hemoglobin 27 pg (27-31); Mean Corpuscular Volume 83 fL (80-97); Mean Platelet Volume 8.5 fL (7.4-10.4); Nucleated Red Blood Cells % 0.1; Platelet Count 166 10^3/uL (150-450); Red Blood Count 3.68 10^6 /uL (3.70-4.87); Red Cell Distribution Width 18 % (10-15); White Blood Count 6.7 10^3/uL (3.5-10.8)
[2020-04-11 06:51] LABS: BUN/Creatinine Ratio 51.2 (8-20); Calcium 9.1 mg/dL (8.6-10.3); EGFR African American 36.6 (>60); EGFR Non-African American 30.2 (>60); Potassium 3.3 mmol/L (3.5-5.0)
[2020-04-11] MEDS ORDERED: Potassium Chlor 20 meq TAB.ER PO ONE (07:41)
[2020-04-11 08:04] LABS: Magnesium 1.6 mg/dL (1.9-2.7)
[2020-04-11] MEDS: SPIRIVA Respimat (tiotropium) 2.5 mcg/inh Inhaler INH SCH (08:10)
[2020-04-11] MEDS ORDERED: [UNRECOGNIZED DRUG - OTHER] PO SCH (09:00)
[2020-04-11] MEDS ORDERED: NUT TX GLUC INTOL LAC FREE SOY PO SCH (09:00)
[2020-04-11] MEDS ORDERED: Neomycin/Polymy/Dex OPHTH.OIN 3.5 GM BOTH EYES SCH (09:00)
[2020-04-11] MEDS ORDERED: Magnesium Sulfate IV 3 GM in NS 0.9% 100 ml BAG 100 ML IVPB ONE (09:05)
[2020-04-11] MEDS: Cholecalciferol (VIT D3) 1,000 unit TAB PO SCH (11:21)
[2020-04-11] MEDS: Furosemide 100 mg/10 ml IV VIAL IV SCH ×2 (11:22→21:16)
[2020-04-12] MEDS ORDERED: oxyCODONE/Acetamin 5/325 mg TAB PO PRN ×2 (06:00→08:52)
[2020-04-12 06:18] LABS: ABS Basophils 0.1 10^3/ul (0-0.2); ABS Lymphocytes 0.9 10^3/ul (1.0-4.8); ABS Monocytes 0.8 10^3/ul (0-0.8); ABS Neutrophils 5.1 10^3/ul (1.5-7.7); Eosinophil % 0.7 %; Hematocrit 30 % (35-47); Hemoglobin 9.7 g/dL (12.0-16.0); Lymphocyte % 12.5 %; Mean Corpuscular HGB Conc 32 g/dL (31-36); Mean Corpuscular Hemoglobin 26 pg (27-31); Mean Corpuscular Volume 82 fL (80-97); Mean Platelet Volume 8.7 fL (7.4-10.4); Nucleated Red Blood Cells % 0.2; Platelet Count 179 10^3/uL (150-450); Red Blood Count 3.66 10^6 /uL (3.70-4.87); Red Cell Distribution Width 18 % (10-15); White Blood Count 6.9 10^3/uL (3.5-10.8)
[2020-04-12 06:39] LABS: BUN/Creatinine Ratio 50.9 (8-20); Calcium 9.3 mg/dL (8.6-10.3); EGFR African American 36.8 (>60); EGFR Non-African American 30.4 (>60); Potassium 3.5 mmol/L (3.5-5.0)
[2020-04-12] MEDS: SPIRIVA Respimat (tiotropium) 2.5 mcg/inh Inhaler INH SCH (08:25)
[2020-04-12] MEDS: Cholecalciferol (VIT D3) 1,000 unit TAB PO SCH (09:05)
[2020-04-12] MEDS: Furosemide 100 mg/10 ml IV VIAL IV SCH ×2 (10:21→21:28)
[2020-04-12] MEDS: Mometasone 220 MCG MDI INH SCH (19:14)
[2020-04-13] MEDS: SPIRIVA Respimat (tiotropium) 2.5 mcg/inh Inhaler INH SCH (07:47)
[2020-04-13 07:59] LABS: ABS Basophils 0.1 10^3/ul (0-0.2); ABS Monocytes 0.9 10^3/ul (0-0.8); ABS Neutrophils 6.2 10^3/ul (1.5-7.7); Eosinophil % 0.4 %; Hematocrit 31 % (35-47); Hemoglobin 9.8 g/dL (12.0-16.0); Lymphocyte % 11.9 %; Mean Corpuscular HGB Conc 32 g/dL (31-36); Mean Corpuscular Hemoglobin 26 pg (27-31); Mean Corpuscular Volume 82 fL (80-97); Mean Platelet Volume 8.5 fL (7.4-10.4); Nucleated Red Blood Cells % 0.1; Platelet Count 182 10^3/uL (150-450); Red Blood Count 3.71 10^6 /uL (3.70-4.87); Red Cell Distribution Width 18 % (10-15); White Blood Count 8.2 10^3/uL (3.5-10.8)
[2020-04-13 08:17] LABS: BUN/Creatinine Ratio 48.6 (8-20); Calcium 9.2 mg/dL (8.6-10.3); EGFR African American 35.3 (>60); EGFR Non-African American 29.2 (>60); Potassium 3.4 mmol/L (3.5-5.0)
[2020-04-13] MEDS: Cholecalciferol (VIT D3) 1,000 unit TAB PO SCH (09:20)
[2020-04-13] MEDS: Furosemide 100 mg/10 ml IV VIAL IV SCH ×4 (09:20→19:52)
[2020-04-13] MEDS ORDERED: Potassium Chlor 20 meq TAB.ER PO ONE (14:00)
[2020-04-13] MEDS: Mometasone 220 MCG MDI INH SCH (20:05)
[2020-04-14 05:52] LABS: BUN/Creatinine Ratio 47.1 (8-20); Calcium 8.8 mg/dL (8.6-10.3); EGFR African American 31.5 (>60); EGFR Non-African American 26.1 (>60); Magnesium 1.8 mg/dL (1.9-2.7); Potassium 3.4 mmol/L (3.5-5.0)
[2020-04-14 05:54] LABS: Digoxin 0.9 ng/ml (0.8-2.0)
[2020-04-14] MEDS ORDERED: Magnesium Sulfate 2 gm BAG 2 GM/50 ML BAG IVPB ONE (07:08)
[2020-04-14] MEDS ORDERED: Potassium Chlor 20 meq TAB.ER PO ONE ×2 (07:10→10:39)
[2020-04-14] MEDS: SPIRIVA Respimat (tiotropium) 2.5 mcg/inh Inhaler INH SCH (07:54)
[2020-04-14] MEDS: Cholecalciferol (VIT D3) 1,000 unit TAB PO SCH (09:32)
[2020-04-14] MEDS: Furosemide 100 mg/10 ml IV VIAL IV SCH (09:33)
[2020-04-14] MEDS ORDERED: acetaZOLAMIDE IV 500 MG in NS 0.9% 50 ML 50 ML IVPB ONE (15:02)
[2020-04-14 17:11] LABS: BUN/Creatinine Ratio 42.6 (8-20); EGFR African American 29.6 (>60); EGFR Non-African American 24.4 (>60); Potassium 4.1 mmol/L (3.5-5.0)
[2020-04-14] MEDS: Mometasone 220 MCG MDI INH SCH (19:59)
[2020-04-14] MEDS: Furosemide 40 mg/4 ml IV VIAL IV SCH (20:39)
[2020-04-15 07:48] LABS: BUN/Creatinine Ratio 49.2 (8-20); Calcium 8.8 mg/dL (8.6-10.3); EGFR Non-African American 28.1 (>60); Magnesium 2.3 mg/dL (1.9-2.7); Potassium 3.8 mmol/L (3.5-5.0)
[2020-04-15] MEDS ORDERED: Potassium Chlor 10 meq TAB PO ONE (08:07)
[2020-04-15] MEDS: SPIRIVA Respimat (tiotropium) 2.5 mcg/inh Inhaler INH SCH (08:12)
[2020-04-15] MEDS: Cholecalciferol (VIT D3) 1,000 unit TAB PO SCH (08:51)
[2020-04-15] MEDS: Furosemide 40 mg/4 ml IV VIAL IV SCH ×2 (08:51→20:16)
[2020-04-15] MEDS ORDERED: acetaZOLAMIDE IV 500 MG in NS 0.9% 50 ML 50 ML IVPB SCH (09:00)
[2020-04-15] MEDS ORDERED: acetaZOLAMIDE IV 500 MG in NS 0.9% 50 ML 50 ML IVPB ONE (15:00)
[2020-04-15] MEDS: Albuterol HFA INHALER 8 gm MDI INH PRN (19:08)
[2020-04-15] MEDS: Mometasone 220 MCG MDI INH SCH (19:09)
[2020-04-16] MEDS: SPIRIVA Respimat (tiotropium) 2.5 mcg/inh Inhaler INH SCH (07:19)
[2020-04-16 07:38] LABS: ABS Basophils 0.1 10^3/ul (0-0.2); ABS Lymphocytes 0.9 10^3/ul (1.0-4.8); ABS Monocytes 0.9 10^3/ul (0-0.8); ABS Neutrophils 6.2 10^3/ul (1.5-7.7); Eosinophil % 0.1 %; Hematocrit 30 % (35-47); Hemoglobin 9.4 g/dL (12.0-16.0); Lymphocyte % 10.7 %; Mean Corpuscular HGB Conc 31 g/dL (31-36); Mean Corpuscular Hemoglobin 26 pg (27-31); Mean Corpuscular Volume 84 fL (80-97); Mean Platelet Volume 8.8 fL (7.4-10.4); Platelet Count 164 10^3/uL (150-450); Red Blood Count 3.59 10^6 /uL (3.70-4.87); Red Cell Distribution Width 18 % (10-15)
[2020-04-16 07:48] LABS: BUN/Creatinine Ratio 48.9 (8-20); Calcium 8.7 mg/dL (8.6-10.3); EGFR African American 33.8 (>60); EGFR Non-African American 27.9 (>60); Potassium 3.8 mmol/L (3.5-5.0)
[2020-04-16] MEDS: Furosemide 40 mg/4 ml IV VIAL IV SCH (07:59)
[2020-04-16] MEDS: Cholecalciferol (VIT D3) 1,000 unit TAB PO SCH (07:59)
[2020-04-16] MEDS: Mometasone 220 MCG MDI INH SCH (19:30)
[2020-04-17 07:03] LABS: ABS Basophils 0.1 10^3/ul (0-0.2); ABS Eosinophils 0.1 10^3/ul (0-0.6); ABS Lymphocytes 0.8 10^3/ul (1.0-4.8); ABS Monocytes 1.1 10^3/ul (0-0.8); ABS Neutrophils 6.5 10^3/ul (1.5-7.7); Eosinophil % 0.9 %; Hematocrit 33 % (35-47); Hemoglobin 10.1 g/dL (12.0-16.0); Lymphocyte % 9.7 %; Mean Corpuscular HGB Conc 31 g/dL (31-36); Mean Corpuscular Hemoglobin 26 pg (27-31); Mean Corpuscular Volume 83 fL (80-97); Mean Platelet Volume 8.4 fL (7.4-10.4); Platelet Count 164 10^3/uL (150-450); Red Blood Count 3.89 10^6 /uL (3.70-4.87); Red Cell Distribution Width 18 % (10-15); White Blood Count 8.6 10^3/uL (3.5-10.8)
[2020-04-17 07:18] LABS: BUN/Creatinine Ratio 50.3 (8-20); Calcium 8.8 mg/dL (8.6-10.3); EGFR African American 34.4 (>60); EGFR Non-African American 28.4 (>60); Potassium 3.5 mmol/L (3.5-5.0)
[2020-04-17] MEDS: SPIRIVA Respimat (tiotropium) 2.5 mcg/inh Inhaler INH SCH (07:48)
[2020-04-17 07:51] LABS: Digoxin 1.1 ng/ml (0.8-2.0)
[2020-04-17] MEDS: Cholecalciferol (VIT D3) 1,000 unit TAB PO SCH (10:03)
[2020-04-17] MEDS: Mometasone 220 MCG MDI INH SCH (20:15)
[2020-04-18 05:22] LABS: ABS Basophils 0.1 10^3/ul (0-0.2); ABS Lymphocytes 0.7 10^3/ul (1.0-4.8); ABS Monocytes 0.7 10^3/ul (0-0.8); ABS Neutrophils 6.6 10^3/ul (1.5-7.7); Eosinophil % 0.5 %; Hematocrit 30 % (35-47); Hemoglobin 9.5 g/dL (12.0-16.0); Lymphocyte % 9.1 %; Mean Corpuscular HGB Conc 32 g/dL (31-36); Mean Corpuscular Hemoglobin 26 pg (27-31); Mean Corpuscular Volume 82 fL (80-97); Mean Platelet Volume 8.3 fL (7.4-10.4); Platelet Count 162 10^3/uL (150-450); Red Blood Count 3.65 10^6 /uL (3.70-4.87); Red Cell Distribution Width 18 % (10-15); White Blood Count 8.2 10^3/uL (3.5-10.8)
[2020-04-18 05:34] LABS: BUN/Creatinine Ratio 49.7 (8-20); Calcium 8.6 mg/dL (8.6-10.3); EGFR African American 34.4 (>60); EGFR Non-African American 28.4 (>60); Magnesium 2.2 mg/dL (1.9-2.7); Potassium 3.5 mmol/L (3.5-5.0)
[2020-04-18] MEDS: SPIRIVA Respimat (tiotropium) 2.5 mcg/inh Inhaler INH SCH (07:54)
[2020-04-18] MEDS: Cholecalciferol (VIT D3) 1,000 unit TAB PO SCH (10:16)
[2020-04-18] MEDS: Mometasone 220 MCG MDI INH SCH ×2 (20:41→21:28)
[2020-04-19 06:01] LABS: BUN/Creatinine Ratio 54.5 (8-20); Calcium 8.8 mg/dL (8.6-10.3); EGFR African American 39.8 (>60); EGFR Non-African American 32.9 (>60); Magnesium 2.4 mg/dL (1.9-2.7); Potassium 3.5 mmol/L (3.5-5.0)
[2020-04-19] MEDS: SPIRIVA Respimat (tiotropium) 2.5 mcg/inh Inhaler INH SCH (08:25)
[2020-04-19] MEDS: Cholecalciferol (VIT D3) 1,000 unit TAB PO SCH (08:54)
[2020-04-19] MEDS: Mometasone 220 MCG MDI INH SCH (19:58)
[2020-04-20 06:53] LABS: ABS Basophils 0.1 10^3/ul (0-0.2); ABS Eosinophils 0.1 10^3/ul (0-0.6); ABS Lymphocytes 0.8 10^3/ul (1.0-4.8); ABS Monocytes 0.8 10^3/ul (0-0.8); ABS Neutrophils 6.9 10^3/ul (1.5-7.7); Eosinophil % 0.7 %; Hematocrit 31 % (35-47); Hemoglobin 9.6 g/dL (12.0-16.0); Mean Corpuscular HGB Conc 31 g/dL (31-36); Mean Corpuscular Hemoglobin 26 pg (27-31); Mean Corpuscular Volume 84 fL (80-97); Mean Platelet Volume 8.5 fL (7.4-10.4); Platelet Count 157 10^3/uL (150-450); Red Blood Count 3.68 10^6 /uL (3.70-4.87); Red Cell Distribution Width 18 % (10-15); White Blood Count 8.6 10^3/uL (3.5-10.8)
[2020-04-20 07:10] LABS: BUN/Creatinine Ratio 53.9 (8-20); Calcium 8.6 mg/dL (8.6-10.3); EGFR African American 40.4 (>60); EGFR Non-African American 33.4 (>60); Potassium 3.5 mmol/L (3.5-5.0)
[2020-04-20] MEDS: SPIRIVA Respimat (tiotropium) 2.5 mcg/inh Inhaler INH SCH (08:00)
[2020-04-20] MEDS: Cholecalciferol (VIT D3) 1,000 unit TAB PO SCH (08:49)
[2020-04-20] MEDS: Mometasone 220 MCG MDI INH SCH (19:29)
[2020-04-21] MEDS: SPIRIVA Respimat (tiotropium) 2.5 mcg/inh Inhaler INH SCH (07:16)
[2020-04-21 08:07] LABS: BUN/Creatinine Ratio 52.4 (8-20); Calcium 8.7 mg/dL (8.6-10.3); EGFR Non-African American 36.4 (>60); Magnesium 2.3 mg/dL (1.9-2.7); Potassium 3.4 mmol/L (3.5-5.0)
[2020-04-21] MEDS: Cholecalciferol (VIT D3) 1,000 unit TAB PO SCH (09:04)
[2020-04-21] MEDS: Albuterol HFA INHALER 8 gm MDI INH PRN (19:24)
[2020-04-21] MEDS: Mometasone 220 MCG MDI INH SCH (19:24)
[2020-04-22 06:55] LABS: ABS Basophils 0.1 10^3/ul (0-0.2); ABS Lymphocytes 0.7 10^3/ul (1.0-4.8); ABS Monocytes 0.8 10^3/ul (0-0.8); ABS Neutrophils 5.7 10^3/ul (1.5-7.7); Eosinophil % 0.5 %; Hematocrit 31 % (35-47); Hemoglobin 9.7 g/dL (12.0-16.0); Lymphocyte % 9.7 %; Mean Corpuscular HGB Conc 31 g/dL (31-36); Mean Corpuscular Hemoglobin 26 pg (27-31); Mean Corpuscular Volume 83 fL (80-97); Mean Platelet Volume 8.2 fL (7.4-10.4); Platelet Count 155 10^3/uL (150-450); Red Cell Distribution Width 18 % (10-15); White Blood Count 7.4 10^3/uL (3.5-10.8)
[2020-04-22 07:15] LABS: BUN/Creatinine Ratio 48.9 (8-20); Calcium 8.5 mg/dL (8.6-10.3); EGFR Non-African American 38.9 (>60); Magnesium 2.1 mg/dL (1.9-2.7); Potassium 3.4 mmol/L (3.5-5.0)
[2020-04-22] MEDS: SPIRIVA Respimat (tiotropium) 2.5 mcg/inh Inhaler INH SCH (07:42)
[2020-04-22 07:57] VITALS: BP 112/66
[2020-04-22] MEDS: Cholecalciferol (VIT D3) 1,000 unit TAB PO SCH (08:45)
[2020-04-22] MEDS ORDERED: Potassium Chlor 20 meq TAB.ER PO ONE (09:00)
== END 2020-04-22 12:06 | disposition home health service (06) | DRG 291 ==
LOC: ED 16:48 → MEDTELE 22:55
PROVIDERS: ADMIT Internal Medicine; ATTEND Internal Medicine

== ENCOUNTER 2020-05-22 22:33 | Inpatient (IN) ==
[2020-05-22 23:04] LABS: ABS Basophils 0.1 10^3/ul (0-0.2); ABS Eosinophils 0.1 10^3/ul (0-0.6); ABS Lymphocytes 0.7 10^3/ul (1.0-4.8); ABS Monocytes 0.7 10^3/ul (0-0.8); ABS Neutrophils 7.1 10^3/ul (1.5-7.7); Hematocrit 30 % (35-47); Hemoglobin 9.4 g/dL (12.0-16.0); Mean Corpuscular HGB Conc 31 g/dL (31-36); Mean Corpuscular Hemoglobin 25 pg (27-31); Mean Corpuscular Volume 81 fL (80-97); Mean Platelet Volume 8.4 fL (7.4-10.4); Nucleated Red Blood Cells % 0.1; Platelet Count 191 10^3/uL (150-450); Red Blood Count 3.77 10^6 /uL (3.70-4.87); Red Cell Distribution Width 19 % (10-15); White Blood Count 8.7 10^3/uL (3.5-10.8)
[2020-05-22] MEDS ORDERED: Furosemide 40 mg/4 ml IV VIAL IV SLOW PU ONE (23:04)
[2020-05-22 23:16] LABS: INR 1.38 (0.82-1.09)
[2020-05-22 23:21] LABS: Albumin 3.5 g/dL (3.2-5.2); BUN/Creatinine Ratio 33.2 (8-20); EGFR African American 32.3 (>60); EGFR Non-African American 26.7 (>60); Globulin 3.5 g/dL (2-4); Potassium 3.6 mmol/L (3.5-5.0); Total Bilirubin 1.1 mg/dL (0.2-1.0)
[2020-05-22 23:23] LABS: Troponin I 0.01 ng/mL (<0.03)
[2020-05-23] MEDS ORDERED: Ondansetron 4 mg VIAL 2 MG/ML 2 ml VIAL IV PRN (00:36)
[2020-05-23] MEDS ORDERED: Dextrose 50% Syringe 50 ml 25 GM/50 ML SYRINGE IV PUSH PRN (01:00)
[2020-05-23] MEDS ORDERED: Albuterol HFA INHALER 8 gm MDI INH PRN (02:04)
[2020-05-23 04:52] LABS: ABS Basophils 0.1 10^3/ul (0-0.2); ABS Eosinophils 0.1 10^3/ul (0-0.6); ABS Lymphocytes 0.7 10^3/ul (1.0-4.8); ABS Monocytes 0.8 10^3/ul (0-0.8); ABS Neutrophils 6.5 10^3/ul (1.5-7.7); Eosinophil % 1.2 %; Hematocrit 31 % (35-47); Hemoglobin 9.6 g/dL (12.0-16.0); Lymphocyte % 8.6 %; Mean Corpuscular HGB Conc 31 g/dL (31-36); Mean Corpuscular Hemoglobin 25 pg (27-31); Mean Corpuscular Volume 81 fL (80-97); Mean Platelet Volume 8.4 fL (7.4-10.4); Nucleated Red Blood Cells % 0.2; Platelet Count 185 10^3/uL (150-450); Red Blood Count 3.81 10^6 /uL (3.70-4.87); Red Cell Distribution Width 19 % (10-15); White Blood Count 8.2 10^3/uL (3.5-10.8)
[2020-05-23] MEDS: Heparin 5000 UNITS/ML 1 mL VIAL SUBCUT SCH ×3 (05:11→22:13)
[2020-05-23] MEDS: Mometasone 220 MCG MDI INH SCH ×2 (05:13→19:23)
[2020-05-23 05:16] LABS: Troponin I 0.01 ng/mL (<0.03)
[2020-05-23 05:58] LABS: Potassium 4.2 mmol/L (3.5-5.0)
[2020-05-23 06:04] LABS: BUN/Creatinine Ratio 34.8 (8-20); EGFR African American 33.5 (>60); EGFR Non-African American 27.7 (>60)
[2020-05-23] MEDS: SPIRIVA Respimat (tiotropium) 2.5 mcg/inh Inhaler INH SCH (07:11)
[2020-05-23] MEDS ORDERED: Furosemide 40 mg/4 ml IV VIAL IV SLOW PU SCH (08:00)
[2020-05-23] MEDS ORDERED: Bumetanide IV 0.25 MG/ML 4 ml VIAL (1 mg) SLOW PUSH SCH (09:00)
[2020-05-23] MEDS: Bumetanide IV 0.25 MG/ML 4 ml VIAL (1 mg) SLOW PUSH SCH (12:00)
[2020-05-23 12:05] LABS: Magnesium 1.7 mg/dL (1.9-2.7)
[2020-05-23] MEDS ORDERED: Magnesium Sulfate IV 3 GM in NS 0.9% 100 ml BAG 100 ML IVPB ONE (18:00)
[2020-05-24] MEDS: Heparin 5000 UNITS/ML 1 mL VIAL SUBCUT SCH ×3 (04:56→20:26)
[2020-05-24 06:31] LABS: ABS Basophils 0.1 10^3/ul (0-0.2); ABS Eosinophils 0.1 10^3/ul (0-0.6); ABS Lymphocytes 0.7 10^3/ul (1.0-4.8); ABS Monocytes 0.8 10^3/ul (0-0.8); ABS Neutrophils 5.1 10^3/ul (1.5-7.7); Eosinophil % 1.4 %; Hematocrit 29 % (35-47); Lymphocyte % 10.5 %; Mean Corpuscular HGB Conc 31 g/dL (31-36); Mean Corpuscular Hemoglobin 25 pg (27-31); Mean Corpuscular Volume 80 fL (80-97); Mean Platelet Volume 8.4 fL (7.4-10.4); Nucleated Red Blood Cells % 0.3; Platelet Count 176 10^3/uL (150-450); Red Cell Distribution Width 19 % (10-15); White Blood Count 6.7 10^3/uL (3.5-10.8)
[2020-05-24 06:51] LABS: Albumin 3.3 g/dL (3.2-5.2); Albumin/Globulin Ratio 0.9 (1-3); BUN/Creatinine Ratio 34.3 (8-20); EGFR African American 35.6 (>60); EGFR Non-African American 29.4 (>60); Globulin 3.6 g/dL (2-4); Magnesium 2.3 mg/dL (1.9-2.7); Potassium 3.7 mmol/L (3.5-5.0); Total Bilirubin 1.2 mg/dL (0.2-1.0); Total Protein 6.9 g/dL (6.4-8.9)
[2020-05-24] MEDS: SPIRIVA Respimat (tiotropium) 2.5 mcg/inh Inhaler INH SCH (07:21)
[2020-05-24] MEDS: Bumetanide IV 0.25 MG/ML 4 ml VIAL (1 mg) SLOW PUSH SCH (08:57)
[2020-05-24] MEDS: Mometasone 220 MCG MDI INH SCH (18:04)
[2020-05-24] MEDS: Acetaminop/Codeine 300mg/30mg TAB PO PRN (20:01)
[2020-05-25] MEDS: Heparin 5000 UNITS/ML 1 mL VIAL SUBCUT SCH ×3 (05:13→21:38)
[2020-05-25] MEDS: SPIRIVA Respimat (tiotropium) 2.5 mcg/inh Inhaler INH SCH (07:16)
[2020-05-25 18:21] LABS: ABS Basophils 0.1 10^3/ul (0-0.2); ABS Eosinophils 0.1 10^3/ul (0-0.6); ABS Lymphocytes 0.7 10^3/ul (1.0-4.8); ABS Monocytes 0.7 10^3/ul (0-0.8); ABS Neutrophils 6.4 10^3/ul (1.5-7.7); Eosinophil % 1.6 %; Hematocrit 30 % (35-47); Lymphocyte % 9.1 %; Mean Corpuscular HGB Conc 30 g/dL (31-36); Mean Corpuscular Hemoglobin 25 pg (27-31); Mean Corpuscular Volume 82 fL (80-97); Mean Platelet Volume 8.5 fL (7.4-10.4); Nucleated Red Blood Cells % 0.2; Platelet Count 166 10^3/uL (150-450); Red Blood Count 3.64 10^6 /uL (3.70-4.87); Red Cell Distribution Width 20 % (10-15)
[2020-05-25 18:35] LABS: Albumin 3.6 g/dL (3.2-5.2); BUN/Creatinine Ratio 32.5 (8-20); Calcium 8.9 mg/dL (8.6-10.3); EGFR African American 39.5 (>60); EGFR Non-African American 32.7 (>60); Globulin 3.5 g/dL (2-4); Potassium 3.9 mmol/L (3.5-5.0); Total Bilirubin 0.9 mg/dL (0.2-1.0); Total Protein 7.1 g/dL (6.4-8.9)
[2020-05-25] MEDS: Mometasone 220 MCG MDI INH SCH (19:02)
[2020-05-25] MEDS ORDERED: Potassium Chlor 10 meq TAB PO ONE (19:05)
[2020-05-25] MEDS: Acetaminop/Codeine 300mg/30mg TAB PO PRN (21:43)
[2020-05-26] MEDS: Digoxin IV 0.5 MG/2 ML AMP (0.25 MG/ML) IV SLOW PU ONE ×2 (00:11→00:52)
[2020-05-26] MEDS: Heparin 5000 UNITS/ML 1 mL VIAL SUBCUT SCH ×3 (06:02→22:22)
[2020-05-26 06:26] LABS: ABS Basophils 0.1 10^3/ul (0-0.2); ABS Eosinophils 0.1 10^3/ul (0-0.6); ABS Lymphocytes 0.7 10^3/ul (1.0-4.8); ABS Monocytes 0.7 10^3/ul (0-0.8); ABS Neutrophils 5.1 10^3/ul (1.5-7.7); Eosinophil % 1.9 %; Hematocrit 28 % (35-47); Hemoglobin 8.7 g/dL (12.0-16.0); Lymphocyte % 10.2 %; Mean Corpuscular HGB Conc 31 g/dL (31-36); Mean Corpuscular Hemoglobin 25 pg (27-31); Mean Corpuscular Volume 80 fL (80-97); Mean Platelet Volume 8.3 fL (7.4-10.4); Nucleated Red Blood Cells % 0.3; Platelet Count 157 10^3/uL (150-450); Red Blood Count 3.53 10^6 /uL (3.70-4.87); Red Cell Distribution Width 19 % (10-15); White Blood Count 6.7 10^3/uL (3.5-10.8)
[2020-05-26 06:37] LABS: BUN/Creatinine Ratio 31.4 (8-20); Calcium 8.4 mg/dL (8.6-10.3); EGFR African American 40.7 (>60); EGFR Non-African American 33.7 (>60); Magnesium 2.1 mg/dL (1.9-2.7); Potassium 4.4 mmol/L (3.5-5.0)
[2020-05-26 06:42] LABS: Digoxin 0.8 ng/ml (0.8-2.0)
[2020-05-26] MEDS ORDERED: Digoxin IV 0.5 MG/2 ML AMP (0.25 MG/ML) IV SLOW PU ONE (07:30)
[2020-05-26] MEDS: SPIRIVA Respimat (tiotropium) 2.5 mcg/inh Inhaler INH SCH (08:25)
[2020-05-26] MEDS: Acetaminop/Codeine 300mg/30mg TAB PO PRN ×2 (14:28→22:30)
[2020-05-26] MEDS: Mometasone 220 MCG MDI INH SCH (22:22)
[2020-05-27] MEDS: Heparin 5000 UNITS/ML 1 mL VIAL SUBCUT SCH ×3 (05:31→21:45)
[2020-05-27 06:08] LABS: ABS Basophils 0.1 10^3/ul (0-0.2); ABS Eosinophils 0.1 10^3/ul (0-0.6); ABS Lymphocytes 0.8 10^3/ul (1.0-4.8); ABS Monocytes 0.7 10^3/ul (0-0.8); ABS Neutrophils 4.7 10^3/ul (1.5-7.7); Eosinophil % 2.1 %; Hematocrit 29 % (35-47); Lymphocyte % 11.9 %; Mean Corpuscular HGB Conc 31 g/dL (31-36); Mean Corpuscular Hemoglobin 25 pg (27-31); Mean Corpuscular Volume 82 fL (80-97); Mean Platelet Volume 8.6 fL (7.4-10.4); Nucleated Red Blood Cells % 0.1; Platelet Count 158 10^3/uL (150-450); Red Blood Count 3.58 10^6 /uL (3.70-4.87); Red Cell Distribution Width 20 % (10-15); White Blood Count 6.4 10^3/uL (3.5-10.8)
[2020-05-27 06:24] LABS: ALT 9 U/L (7-52); AST 11 U/L (13-39); Albumin 3.4 g/dL (3.2-5.2); Alkaline Phosphatase 75 U/L (34-104); Anion Gap 3 mmol/L (2-11); BUN/Creatinine Ratio 29.9 (8-20); Blood Urea Nitrogen 44 mg/dL (6-24); CO2 Carbon Dioxide 40 mmol/L (22-32); Calcium 8.2 mg/dL (8.6-10.3); Chloride 95 mmol/L (101-111); EGFR African American 42.6 (>60); EGFR Non-African American 35.2 (>60); Globulin 3.4 g/dL (2-4); Glucose 81 mg/dL (70-100); Magnesium 1.9 mg/dL (1.9-2.7); Potassium 4.2 mmol/L (3.5-5.0); Sodium 138 mmol/L (135-145); Total Protein 6.8 g/dL (6.4-8.9)
[2020-05-27 07:40] LABS: Digoxin 0.8 ng/ml (0.8-2.0)
[2020-05-27] MEDS: SPIRIVA Respimat (tiotropium) 2.5 mcg/inh Inhaler INH SCH (08:55)
[2020-05-27] MEDS: Acetaminop/Codeine 300mg/30mg TAB PO PRN ×2 (11:57→21:44)
[2020-05-27 14:06] LABS: % Iron Saturation 8 % (15-55); Iron 43 ug/dL (50-212); Total Iron Binding Capacity 519 mcg/dL (250-450); Transferrin 371 mg/dL (203-362); Unsaturated Iron Binding < 504 ug/dL
[2020-05-27 14:25] LABS: Ferritin 23.8 ng/mL (11-307)
[2020-05-27] MEDS: Mometasone 220 MCG MDI INH SCH (20:33)
[2020-05-28] MEDS: Heparin 5000 UNITS/ML 1 mL VIAL SUBCUT SCH ×3 (05:56→21:09)
[2020-05-28 07:06] LABS: Hematocrit 30 % (35-47); Mean Corpuscular HGB Conc 30 g/dL (31-36); Mean Corpuscular Hemoglobin 25 pg (27-31); Mean Corpuscular Volume 83 fL (80-97); Mean Platelet Volume 8.4 fL (7.4-10.4); Platelet Count 159 10^3/uL (150-450); Red Blood Count 3.58 10^6 /uL (3.70-4.87); Red Cell Distribution Width 20 % (10-15); White Blood Count 6.5 10^3/uL (3.5-10.8)
[2020-05-28 07:34] LABS: Digoxin 1.5 ng/ml (0.8-2.0)
[2020-05-28] MEDS: SPIRIVA Respimat (tiotropium) 2.5 mcg/inh Inhaler INH SCH (07:45)
[2020-05-28 08:14] LABS: Albumin 3.4 g/dL (3.2-5.2); Calcium 8.1 mg/dL (8.6-10.3); Potassium 4.3 mmol/L (3.5-5.0)
[2020-05-28 08:17] LABS: ABS Basophils 0.1 10^3/ul (0-0.2); ABS Eosinophils 0.1 10^3/ul (0-0.6); ABS Lymphocytes 0.8 10^3/ul (1.0-4.8); ABS Monocytes 0.7 10^3/ul (0-0.8); ABS Neutrophils 4.9 10^3/ul (1.5-7.7); Eosinophil % 2.1 %; Lymphocyte % 11.8 %; Nucleated Red Blood Cells % 0.1; Polychromasia 1+
[2020-05-28 08:20] LABS: Albumin/Globulin Ratio 0.9 (1-3); BUN/Creatinine Ratio 30.1 (8-20); EGFR African American 40.7 (>60); EGFR Non-African American 33.7 (>60); Globulin 3.6 g/dL (2-4)
[2020-05-28] MEDS ORDERED: Digoxin IV 0.5 MG/2 ML AMP (0.25 MG/ML) IV SLOW PU ONE (08:56)
[2020-05-28] MEDS ORDERED: Pneumococcal Vac 23-Polyvalent IM ONE (09:00)
[2020-05-28] MEDS ORDERED: Iron Sucrose 20 MG/ML 5 ML VIAL IV PUSH ONE (10:00)
[2020-05-28] MEDS ORDERED: Iron Sucrose 200 MG in NS 0.9% 100 ml BAG 100 ML IVPB ONE (11:00)
[2020-05-28] MEDS: Mometasone 220 MCG MDI INH SCH (19:46)
[2020-05-28] MEDS: Acetaminop/Codeine 300mg/30mg TAB PO PRN (21:08)
[2020-05-29] MEDS: Heparin 5000 UNITS/ML 1 mL VIAL SUBCUT SCH ×3 (05:51→20:51)
[2020-05-29 06:55] LABS: ABS Basophils 0.1 10^3/ul (0-0.2); ABS Eosinophils 0.1 10^3/ul (0-0.6); ABS Lymphocytes 0.7 10^3/ul (1.0-4.8); ABS Monocytes 0.7 10^3/ul (0-0.8); ABS Neutrophils 5.6 10^3/ul (1.5-7.7); Eosinophil % 1.4 %; Hematocrit 28 % (35-47); Hemoglobin 8.7 g/dL (12.0-16.0); Lymphocyte % 9.2 %; Mean Corpuscular HGB Conc 31 g/dL (31-36); Mean Corpuscular Hemoglobin 25 pg (27-31); Mean Corpuscular Volume 81 fL (80-97); Mean Platelet Volume 8.5 fL (7.4-10.4); Nucleated Red Blood Cells % 0.2; Platelet Count 154 10^3/uL (150-450); Red Blood Count 3.46 10^6 /uL (3.70-4.87); Red Cell Distribution Width 20 % (10-15); White Blood Count 7.2 10^3/uL (3.5-10.8)
[2020-05-29 07:03] LABS: Albumin 3.3 g/dL (3.2-5.2); Albumin/Globulin Ratio 0.9 (1-3); BUN/Creatinine Ratio 30.5 (8-20); EGFR African American 36.8 (>60); EGFR Non-African American 30.4 (>60); Globulin 3.5 g/dL (2-4); Total Bilirubin 0.9 mg/dL (0.2-1.0); Total Protein 6.8 g/dL (6.4-8.9)
[2020-05-29 07:07] LABS: Digoxin 1.7 ng/ml (0.8-2.0)
[2020-05-29 08:29] LABS: Magnesium 1.6 mg/dL (1.9-2.7)
[2020-05-29] MEDS: Acetaminop/Codeine 300mg/30mg TAB PO PRN ×2 (08:32→20:51)
[2020-05-29] MEDS: SPIRIVA Respimat (tiotropium) 2.5 mcg/inh Inhaler INH SCH (09:31)
[2020-05-29] MEDS ORDERED: Iron Sucrose 200 MG in NS 0.9% 100 ml BAG 100 ML IVPB ONE (10:27)
[2020-05-29] MEDS ORDERED: Perflutren Lipid Microsphere 3 ML VIAL ONE (10:32)
[2020-05-29] MEDS ORDERED: Adenosine 3 MG/ML 2 ml VIAL (6 mg) IV PUSH ONE (10:57)
[2020-05-29] MEDS ORDERED: Adenosine 3 MG/ML 2 ml VIAL (6 mg) ONE ×2 (11:00→11:16)
[2020-05-29] MEDS ORDERED: Adenosine 3 MG/ML 2 ml VIAL (6 mg) IV ONE (12:10)
[2020-05-29] MEDS ORDERED: Magnesium Sulf 4 GM/100 ML IV 4,000 MG/100 ML BAG IVPB ONE (12:48)
[2020-05-29] MEDS: Mometasone 220 MCG MDI INH SCH (20:44)
[2020-05-30] MEDS: Heparin 5000 UNITS/ML 1 mL VIAL SUBCUT SCH ×3 (05:45→20:24)
[2020-05-30 06:48] LABS: Calcium 8.3 mg/dL (8.6-10.3); Potassium 4.5 mmol/L (3.5-5.0)
[2020-05-30 06:54] LABS: BUN/Creatinine Ratio 29.7 (8-20); EGFR African American 37.3 (>60); EGFR Non-African American 30.8 (>60)
[2020-05-30] MEDS: SPIRIVA Respimat (tiotropium) 2.5 mcg/inh Inhaler INH SCH (07:57)
[2020-05-30] MEDS: Acetaminop/Codeine 300mg/30mg TAB PO PRN ×3 (08:20→20:24)
[2020-05-30] MEDS ORDERED: Iron Sucrose 200 MG in NS 0.9% 100 ml BAG 100 ML IVPB ONE (08:31)
[2020-05-30 11:37] LABS: Magnesium 1.8 mg/dL (1.9-2.7)
[2020-05-30] MEDS: Mometasone 220 MCG MDI INH SCH (19:26)
[2020-05-31] MEDS: Heparin 5000 UNITS/ML 1 mL VIAL SUBCUT SCH ×3 (05:56→21:02)
[2020-05-31 06:38] LABS: ABS Basophils 0.1 10^3/ul (0-0.2); ABS Eosinophils 0.1 10^3/ul (0-0.6); ABS Lymphocytes 0.7 10^3/ul (1.0-4.8); ABS Monocytes 0.9 10^3/ul (0-0.8); ABS Neutrophils 5.2 10^3/ul (1.5-7.7); Eosinophil % 1.6 %; Hematocrit 30 % (35-47); Lymphocyte % 10.3 %; Mean Corpuscular HGB Conc 30 g/dL (31-36); Mean Corpuscular Hemoglobin 26 pg (27-31); Mean Corpuscular Volume 84 fL (80-97); Mean Platelet Volume 8.4 fL (7.4-10.4); Nucleated Red Blood Cells % 0.3; Platelet Count 156 10^3/uL (150-450); Red Blood Count 3.52 10^6 /uL (3.70-4.87); Red Cell Distribution Width 20 % (10-15)
[2020-05-31 07:11] LABS: Albumin 3.5 g/dL (3.2-5.2); BUN/Creatinine Ratio 28.7 (8-20); Calcium 8.6 mg/dL (8.6-10.3); EGFR African American 32.1 (>60); EGFR Non-African American 26.5 (>60); Globulin 3.4 g/dL (2-4); Magnesium 1.8 mg/dL (1.9-2.7); Potassium 4.7 mmol/L (3.5-5.0); Total Protein 6.9 g/dL (6.4-8.9)
[2020-05-31] MEDS: SPIRIVA Respimat (tiotropium) 2.5 mcg/inh Inhaler INH SCH (07:41)
[2020-05-31] MEDS: Acetaminop/Codeine 300mg/30mg TAB PO PRN ×3 (08:49→21:00)
[2020-05-31] MEDS: Mometasone 220 MCG MDI INH SCH (20:32)
[2020-06-01] MEDS: Heparin 5000 UNITS/ML 1 mL VIAL SUBCUT SCH ×3 (05:51→21:07)
[2020-06-01] MEDS: SPIRIVA Respimat (tiotropium) 2.5 mcg/inh Inhaler INH SCH (07:59)
[2020-06-01] MEDS: Acetaminop/Codeine 300mg/30mg TAB PO PRN ×3 (08:53→21:05)
[2020-06-01 12:46] LABS: ABS Basophils 0.1 10^3/ul (0-0.2); ABS Eosinophils 0.1 10^3/ul (0-0.6); ABS Lymphocytes 0.7 10^3/ul (1.0-4.8); ABS Monocytes 0.9 10^3/ul (0-0.8); Eosinophil % 1.4 %; Hematocrit 30 % (35-47); Hemoglobin 9.3 g/dL (12.0-16.0); Lymphocyte % 8.8 %; Mean Corpuscular HGB Conc 31 g/dL (31-36); Mean Corpuscular Hemoglobin 26 pg (27-31); Mean Corpuscular Volume 84 fL (80-97); Mean Platelet Volume 8.8 fL (7.4-10.4); Nucleated Red Blood Cells % 0.1; Platelet Count 153 10^3/uL (150-450); Red Blood Count 3.62 10^6 /uL (3.70-4.87); Red Cell Distribution Width 20 % (10-15); White Blood Count 7.8 10^3/uL (3.5-10.8)
[2020-06-01 13:03] LABS: Albumin 3.5 g/dL (3.2-5.2); Albumin/Globulin Ratio 0.9 (1-3); BUN/Creatinine Ratio 34.7 (8-20); Calcium 8.1 mg/dL (8.6-10.3); EGFR African American 34.6 (>60); EGFR Non-African American 28.6 (>60); Globulin 3.8 g/dL (2-4); Magnesium 1.8 mg/dL (1.9-2.7); Potassium 4.8 mmol/L (3.5-5.0); Total Bilirubin 1.1 mg/dL (0.2-1.0); Total Protein 7.3 g/dL (6.4-8.9)
[2020-06-01] MEDS ORDERED: Magnesium Sulfate IV 3 GM in NS 0.9% 100 ml BAG 100 ML IVPB ONE (13:41)
[2020-06-01] MEDS: Mometasone 220 MCG MDI INH SCH (20:42)
[2020-06-02] MEDS: Heparin 5000 UNITS/ML 1 mL VIAL SUBCUT SCH ×3 (05:20→22:20)
[2020-06-02 06:57] LABS: ABS Basophils 0.1 10^3/ul (0-0.2); ABS Lymphocytes 0.8 10^3/ul (1.0-4.8); ABS Monocytes 0.9 10^3/ul (0-0.8); ABS Neutrophils 5.1 10^3/ul (1.5-7.7); Eosinophil % 0.2 %; Hematocrit 29 % (35-47); Hemoglobin 8.9 g/dL (12.0-16.0); Lymphocyte % 11.3 %; Mean Corpuscular HGB Conc 31 g/dL (31-36); Mean Corpuscular Hemoglobin 26 pg (27-31); Mean Corpuscular Volume 85 fL (80-97); Mean Platelet Volume 8.7 fL (7.4-10.4); Nucleated Red Blood Cells % 0.2; Platelet Count 142 10^3/uL (150-450); Red Blood Count 3.39 10^6 /uL (3.70-4.87); Red Cell Distribution Width 20 % (10-15); White Blood Count 6.9 10^3/uL (3.5-10.8)
[2020-06-02 07:16] LABS: BUN/Creatinine Ratio 32.7 (8-20); Calcium 8.1 mg/dL (8.6-10.3); EGFR African American 29.6 (>60); EGFR Non-African American 24.4 (>60); Potassium 4.7 mmol/L (3.5-5.0)
[2020-06-02] MEDS: SPIRIVA Respimat (tiotropium) 2.5 mcg/inh Inhaler INH SCH (07:27)
[2020-06-02] MEDS: Acetaminop/Codeine 300mg/30mg TAB PO PRN ×2 (08:38→14:33)
[2020-06-02] MEDS: Mometasone 220 MCG MDI INH SCH (20:15)
[2020-06-03] MEDS: Heparin 5000 UNITS/ML 1 mL VIAL SUBCUT SCH ×2 (05:17→14:25)
[2020-06-03 06:39] LABS: ABS Basophils 0.1 10^3/ul (0-0.2); ABS Eosinophils 0.1 10^3/ul (0-0.6); ABS Lymphocytes 0.7 10^3/ul (1.0-4.8); ABS Monocytes 0.8 10^3/ul (0-0.8); Eosinophil % 1.1 %; Hematocrit 30 % (35-47); Lymphocyte % 10.5 %; Mean Corpuscular HGB Conc 30 g/dL (31-36); Mean Corpuscular Hemoglobin 26 pg (27-31); Mean Corpuscular Volume 86 fL (80-97); Mean Platelet Volume 8.7 fL (7.4-10.4); Nucleated Red Blood Cells % 0.3; Platelet Count 142 10^3/uL (150-450); Red Blood Count 3.47 10^6 /uL (3.70-4.87); Red Cell Distribution Width 21 % (10-15); White Blood Count 6.7 10^3/uL (3.5-10.8)
[2020-06-03 07:01] LABS: BUN/Creatinine Ratio 35.6 (8-20); Calcium 8.6 mg/dL (8.6-10.3); EGFR Non-African American 25.6 (>60); Magnesium 2.3 mg/dL (1.9-2.7); Potassium 4.6 mmol/L (3.5-5.0)
[2020-06-03 07:07] LABS: Digoxin 2.6 ng/ml (0.8-2.0)
[2020-06-03] MEDS: SPIRIVA Respimat (tiotropium) 2.5 mcg/inh Inhaler INH SCH (07:24)
[2020-06-03] MEDS: Mometasone 220 MCG MDI INH SCH (19:22)
[2020-06-03] MEDS: Acetaminop/Codeine 300mg/30mg TAB PO PRN (22:41)
[2020-06-04 05:25] LABS: BUN/Creatinine Ratio 38.8 (8-20); Calcium 8.9 mg/dL (8.6-10.3); EGFR African American 34.2 (>60); EGFR Non-African American 28.3 (>60); Potassium 4.9 mmol/L (3.5-5.0)
[2020-06-04 05:33] LABS: ABS Basophils 0.1 10^3/ul (0-0.2); ABS Eosinophils 0.1 10^3/ul (0-0.6); ABS Lymphocytes 0.8 10^3/ul (1.0-4.8); ABS Neutrophils 6.5 10^3/ul (1.5-7.7); ABS Nucleated RBC 0.1 10^3/ul; Eosinophil % 0.9 %; Hematocrit 33 % (35-47); Hemoglobin 9.9 g/dL (12.0-16.0); Lymphocyte % 9.9 %; Mean Corpuscular HGB Conc 30 g/dL (31-36); Mean Corpuscular Hemoglobin 26 pg (27-31); Mean Corpuscular Volume 87 fL (80-97); Nucleated Red Blood Cells % 0.7; Platelet Count 146 10^3/uL (150-450); Red Blood Count 3.75 10^6 /uL (3.70-4.87); Red Cell Distribution Width 22 % (10-15); White Blood Count 8.5 10^3/uL (3.5-10.8)
[2020-06-04] MEDS: SPIRIVA Respimat (tiotropium) 2.5 mcg/inh Inhaler INH SCH (08:19)
[2020-06-04] MEDS: Acetaminop/Codeine 300mg/30mg TAB PO PRN (13:11)
[2020-06-04] MEDS ORDERED: Bumetanide IV 0.25 MG/ML 4 ml VIAL (1 mg) SLOW PUSH PRN (13:36)
[2020-06-05 05:41] LABS: ABS Basophils 0.1 10^3/ul (0-0.2); ABS Eosinophils 0.1 10^3/ul (0-0.6); ABS Lymphocytes 0.8 10^3/ul (1.0-4.8); ABS Monocytes 0.9 10^3/ul (0-0.8); ABS Neutrophils 5.9 10^3/ul (1.5-7.7); ABS Nucleated RBC 0.1 10^3/ul; Eosinophil % 0.7 %; Hematocrit 33 % (35-47); Hemoglobin 10.2 g/dL (12.0-16.0); Lymphocyte % 10.8 %; Mean Corpuscular HGB Conc 31 g/dL (31-36); Mean Corpuscular Hemoglobin 27 pg (27-31); Mean Corpuscular Volume 86 fL (80-97); Mean Platelet Volume 9.2 fL (7.4-10.4); Nucleated Red Blood Cells % 0.8; Platelet Count 140 10^3/uL (150-450); Red Blood Count 3.83 10^6 /uL (3.70-4.87); Red Cell Distribution Width 23 % (10-15); White Blood Count 7.7 10^3/uL (3.5-10.8)
[2020-06-05 05:56] LABS: Calcium 9.3 mg/dL (8.6-10.3); EGFR African American 39.2 (>60); EGFR Non-African American 32.4 (>60); Magnesium 2.4 mg/dL (1.9-2.7); Potassium 4.9 mmol/L (3.5-5.0)
[2020-06-05] MEDS: Mometasone 220 MCG MDI INH SCH ×2 (06:51→21:20)
[2020-06-05] MEDS: SPIRIVA Respimat (tiotropium) 2.5 mcg/inh Inhaler INH SCH (08:04)
[2020-06-05 08:30] LABS: Digoxin 2.1 ng/ml (0.8-2.0)
[2020-06-05] MEDS: Acetaminop/Codeine 300mg/30mg TAB PO PRN (09:02)
[2020-06-05] MEDS ORDERED: Bumetanide IV 0.25 MG/ML 4 ml VIAL (1 mg) SLOW PUSH ONE (11:00)
[2020-06-06 05:29] LABS: ABS Basophils 0.1 10^3/ul (0-0.2); ABS Lymphocytes 0.5 10^3/ul (1.0-4.8); ABS Neutrophils 4.6 10^3/ul (1.5-7.7); Eosinophil % 0.4 %; Hematocrit 30 % (35-47); Hemoglobin 9.2 g/dL (12.0-16.0); Lymphocyte % 8.5 %; Mean Corpuscular HGB Conc 31 g/dL (31-36); Mean Corpuscular Hemoglobin 27 pg (27-31); Mean Corpuscular Volume 86 fL (80-97); Mean Platelet Volume 8.6 fL (7.4-10.4); Nucleated Red Blood Cells % 0.2; Platelet Count 120 10^3/uL (150-450); Red Blood Count 3.45 10^6 /uL (3.70-4.87); Red Cell Distribution Width 25 % (10-15); White Blood Count 6.2 10^3/uL (3.5-10.8)
[2020-06-06 05:37] LABS: BUN/Creatinine Ratio 42.6 (8-20); Calcium 8.7 mg/dL (8.6-10.3); EGFR African American 40.1 (>60); EGFR Non-African American 33.2 (>60); Magnesium 2.2 mg/dL (1.9-2.7); Potassium 4.1 mmol/L (3.5-5.0)
[2020-06-06 07:03] LABS: Digoxin 1.5 ng/ml (0.8-2.0)
[2020-06-06] MEDS: SPIRIVA Respimat (tiotropium) 2.5 mcg/inh Inhaler INH SCH (08:21)
[2020-06-06] MEDS: Mometasone 220 MCG MDI INH SCH (20:09)
[2020-06-07 05:20] LABS: ABS Basophils 0.1 10^3/ul (0-0.2); ABS Eosinophils 0.1 10^3/ul (0-0.6); ABS Lymphocytes 0.7 10^3/ul (1.0-4.8); ABS Monocytes 0.6 10^3/ul (0-0.8); ABS Neutrophils 4.5 10^3/ul (1.5-7.7); Eosinophil % 0.9 %; Hematocrit 32 % (35-47); Hemoglobin 9.8 g/dL (12.0-16.0); Lymphocyte % 11.3 %; Mean Corpuscular HGB Conc 31 g/dL (31-36); Mean Corpuscular Hemoglobin 27 pg (27-31); Mean Corpuscular Volume 88 fL (80-97); Mean Platelet Volume 9.2 fL (7.4-10.4); Nucleated Red Blood Cells % 0.3; Platelet Count 126 10^3/uL (150-450); Red Blood Count 3.66 10^6 /uL (3.70-4.87); Red Cell Distribution Width 27 % (10-15); White Blood Count 5.9 10^3/uL (3.5-10.8)
[2020-06-07 05:35] LABS: BUN/Creatinine Ratio 41.6 (8-20); Calcium 9.2 mg/dL (8.6-10.3); EGFR Non-African American 34.7 (>60); Magnesium 2.1 mg/dL (1.9-2.7); Potassium 4.1 mmol/L (3.5-5.0)
[2020-06-07] MEDS: SPIRIVA Respimat (tiotropium) 2.5 mcg/inh Inhaler INH SCH (07:55)
[2020-06-07] MEDS: Mometasone 220 MCG MDI INH SCH (19:24)
[2020-06-08] MEDS: SPIRIVA Respimat (tiotropium) 2.5 mcg/inh Inhaler INH SCH (07:38)
[2020-06-08] MEDS: Mometasone 220 MCG MDI INH SCH (21:45)
[2020-06-09 07:39] LABS: Hematocrit 33 % (35-47); Mean Corpuscular HGB Conc 31 g/dL (31-36); Mean Corpuscular Hemoglobin 27 pg (27-31); Mean Corpuscular Volume 88 fL (80-97); Platelet Count 121 10^3/uL (150-450); Red Blood Count 3.69 10^6 /uL (3.70-4.87); Red Cell Distribution Width 28 % (10-15); White Blood Count 5.4 10^3/uL (3.5-10.8)
[2020-06-09 07:48] LABS: Calcium 8.5 mg/dL (8.6-10.3); EGFR African American 46.6 (>60); EGFR Non-African American 38.6 (>60); Potassium 3.9 mmol/L (3.5-5.0)
[2020-06-09] MEDS: SPIRIVA Respimat (tiotropium) 2.5 mcg/inh Inhaler INH SCH (08:13)
[2020-06-09 08:47] LABS: ABS Basophils 0.1 10^3/ul (0-0.2); ABS Eosinophils 0.1 10^3/ul (0-0.6); ABS Lymphocytes 0.7 10^3/ul (1.0-4.8); ABS Monocytes 0.6 10^3/ul (0-0.8); Eosinophil % 1.5 %; Lymphocyte % 12.2 %; Nucleated Red Blood Cells % 0.3
[2020-06-09 08:48] LABS: Polychromasia 2+
[2020-06-09] MEDS: Mometasone 220 MCG MDI INH SCH (19:56)
[2020-06-10 06:36] LABS: ABS Basophils 0.1 10^3/ul (0-0.2); ABS Eosinophils 0.1 10^3/ul (0-0.6); ABS Lymphocytes 0.6 10^3/ul (1.0-4.8); ABS Monocytes 0.6 10^3/ul (0-0.8); ABS Neutrophils 3.9 10^3/ul (1.5-7.7); Eosinophil % 1.3 %; Hematocrit 33 % (35-47); Mean Corpuscular HGB Conc 31 g/dL (31-36); Mean Corpuscular Hemoglobin 27 pg (27-31); Mean Corpuscular Volume 89 fL (80-97); Mean Platelet Volume 8.4 fL (7.4-10.4); Nucleated Red Blood Cells % 0.1; Platelet Count 116 10^3/uL (150-450); Red Blood Count 3.66 10^6 /uL (3.70-4.87); Red Cell Distribution Width 28 % (10-15); White Blood Count 5.3 10^3/uL (3.5-10.8)
[2020-06-10 06:38] LABS: Calcium 8.4 mg/dL (8.6-10.3); Magnesium 1.9 mg/dL (1.9-2.7)
[2020-06-10 06:44] LABS: BUN/Creatinine Ratio 36.6 (8-20); EGFR African American 52.4 (>60); EGFR Non-African American 43.3 (>60)
[2020-06-10] MEDS: SPIRIVA Respimat (tiotropium) 2.5 mcg/inh Inhaler INH SCH (07:23)
[2020-06-10] MEDS: Mometasone 220 MCG MDI INH SCH (20:25)
[2020-06-11] MEDS: SPIRIVA Respimat (tiotropium) 2.5 mcg/inh Inhaler INH SCH ×2 (07:49→08:04)
[2020-06-11 08:37] LABS: BUN/Creatinine Ratio 33.1 (8-20); Calcium 8.4 mg/dL (8.6-10.3); EGFR African American 49.1 (>60); EGFR Non-African American 40.6 (>60); Magnesium 1.9 mg/dL (1.9-2.7)
[2020-06-11 09:06] LABS: ABS Basophils 0.1 10^3/ul (0-0.2); ABS Eosinophils 0.1 10^3/ul (0-0.6); ABS Lymphocytes 0.6 10^3/ul (1.0-4.8); ABS Monocytes 0.5 10^3/ul (0-0.8); ABS Neutrophils 3.4 10^3/ul (1.5-7.7); Eosinophil % 1.5 %; Hematocrit 32 % (35-47); Hemoglobin 9.9 g/dL (12.0-16.0); Lymphocyte % 12.4 %; Mean Corpuscular HGB Conc 31 g/dL (31-36); Mean Corpuscular Hemoglobin 27 pg (27-31); Mean Corpuscular Volume 89 fL (80-97); Nucleated Red Blood Cells % 0.1; Platelet Count 118 10^3/uL (150-450); Red Blood Count 3.61 10^6 /uL (3.70-4.87); Red Cell Distribution Width 29 % (10-15); White Blood Count 4.6 10^3/uL (3.5-10.8)
[2020-06-11 12:21] VITALS: BP 94/49
== END 2020-06-11 15:25 | disposition home or self-care (01) | DRG 291 ==
LOC: ED 22:33 → MED 05-23 00:31 → MEDTELE 05-24 15:44
PROVIDERS: ADMIT Hospitalist; ATTEND Internal Medicine

== ENCOUNTER 2020-07-08 16:58 | Observation (INO) ==
[2020-07-08] MEDS ORDERED: cefTRIAXone 1 gm/50 mL NS BAG 1 GM/50 ML BAG IV ONE (17:16)
[2020-07-08 18:37] LABS: ABS Basophils 0.1 10^3/ul (0-0.2); ABS Eosinophils 0.1 10^3/ul (0-0.6); ABS Monocytes 0.5 10^3/ul (0-0.8); ABS Neutrophils 3.1 10^3/ul (1.5-7.7); Eosinophil % 3.1 %; Hematocrit 35 % (35-47); Hemoglobin 10.8 g/dL (12.0-16.0); Lymphocyte % 20.3 %; Mean Corpuscular HGB Conc 31 g/dL (31-36); Mean Corpuscular Hemoglobin 28 pg (27-31); Mean Corpuscular Volume 90 fL (80-97); Mean Platelet Volume 8.3 fL (7.4-10.4); Nucleated Red Blood Cells % 0.1; Platelet Count 143 10^3/uL (150-450); Red Blood Count 3.87 10^6 /uL (3.70-4.87); Red Cell Distribution Width 25 % (10-15); White Blood Count 4.8 10^3/uL (3.5-10.8)
[2020-07-08 18:47] LABS: ALT 9 U/L (7-52); Activated Partial Thrombo Time 23.8 seconds (26.0-38.0); Albumin 3.5 g/dL (3.2-5.2); Alkaline Phosphatase 58 U/L (34-104); BUN/Creatinine Ratio 15.2 (8-20); Blood Urea Nitrogen 28 mg/dL (6-24); CO2 Carbon Dioxide 38 mmol/L (22-32); Calcium 8.8 mg/dL (8.6-10.3); Chloride 93 mmol/L (101-111); Creatine Kinase 40 U/L (10-223); EGFR African American 32.9 (>60); EGFR Non-African American 27.2 (>60); Fibrinogen 274.1 mg/dL (110.8-404.3); Globulin 3.5 g/dL (2-4); Glucose 88 mg/dL (70-100); INR 1.23 (0.82-1.09); Sodium 136 mmol/L (135-145)
[2020-07-08 18:48] LABS: Troponin I 0.01 ng/mL (<0.03)
[2020-07-08 19:06] LABS: Anion Gap 5 mmol/L (2-11)
[2020-07-08 21:04] LABS: Erythrocyte Sed Rate 11 mm/Hr (0-29)
[2020-07-08 22:04] LABS: Urine Appearance Cloudy; Urine Bilirubin Negative (Negative); Urine Blood Negative (Negative); Urine Color Yellow; Urine Glucose Negative (Negative); Urine Ketones Negative (Negative); Urine Nitrite Negative (Negative); Urine Protein 1+(30 mg/dL) (Negative); Urine Specific Gravity 1.015 (1.010-1.030); Urine Urobilinogen Negative (Negative)
[2020-07-08 22:14] LABS: Urine Bacteria Absent (Absent); Urine Red Blood Cell Absent (Absent); Urine Squamous Epithelial Cell Present (Absent); Urine White Blood Cell 3+(>20/hpf) (Absent)
[2020-07-08] MEDS ORDERED: Ondansetron 4 mg VIAL 2 MG/ML 2 ml VIAL IV PRN (22:46)
[2020-07-08] MEDS ORDERED: Vancomycin 1,000 MG in NS 0.9% 250 ml 250 ML IVPB ONE (22:53)
[2020-07-08] MEDS ORDERED: NS 0.9% 500 ml BAG 500 ML IV ONE ×2 (22:54→23:20)
[2020-07-08] MEDS ORDERED: Vancomycin per Pharmacy 1 EA NOTE FOLLOW UP SCH (23:00)
[2020-07-08 23:54] LABS: Digoxin 0.6 ng/ml (0.8-2.0)
[2020-07-09] MEDS ORDERED: Dextrose 50% Syringe 50 ml 25 GM/50 ML SYRINGE IV PUSH PRN (00:02)
[2020-07-09] MEDS ORDERED: Albuterol HFA INHALER 8 gm MDI INH PRN (00:02)
[2020-07-09 03:01] LABS: Calcium 8.6 mg/dL (8.6-10.3); Potassium 3.7 mmol/L (3.5-5.0)
[2020-07-09 03:07] LABS: BUN/Creatinine Ratio 16.2 (8-20); EGFR African American 36.8 (>60); EGFR Non-African American 30.4 (>60)
[2020-07-09 03:24] LABS: ABS Basophils 0.1 10^3/ul (0-0.2); ABS Eosinophils 0.1 10^3/ul (0-0.6); ABS Lymphocytes 1.1 10^3/ul (1.0-4.8); ABS Monocytes 0.5 10^3/ul (0-0.8); ABS Neutrophils 3.1 10^3/ul (1.5-7.7); Eosinophil % 2.8 %; Hematocrit 34 % (35-47); Hemoglobin 10.5 g/dL (12.0-16.0); Lymphocyte % 22.8 %; Mean Corpuscular HGB Conc 31 g/dL (31-36); Mean Corpuscular Hemoglobin 28 pg (27-31); Mean Corpuscular Volume 90 fL (80-97); Mean Platelet Volume 8.4 fL (7.4-10.4); Nucleated Red Blood Cells % 0.2; Platelet Count 123 10^3/uL (150-450); Red Blood Count 3.82 10^6 /uL (3.70-4.87); Red Cell Distribution Width 26 % (10-15); White Blood Count 4.9 10^3/uL (3.5-10.8)
[2020-07-09 04:01] LABS: Polychromasia 1+
[2020-07-09] MEDS: Heparin 5000 UNITS/ML 1 mL VIAL SUBCUT SCH ×3 (05:47→20:45)
[2020-07-09] MEDS: SPIRIVA Respimat (tiotropium) 2.5 mcg/inh Inhaler INH SCH (07:08)
[2020-07-09] MEDS: Ammonium Lactate 12% 1 APPLIC TUBE TOPICAL SCH ×2 (11:20→21:55)
[2020-07-09] MEDS: Mometasone 220 MCG MDI INH SCH (20:00)
[2020-07-09] MEDS: cefTRIAXone 1 gm/50 mL NS BAG 1 GM/50 ML BAG IVPB SCH (20:42)
[2020-07-09] MEDS ORDERED: VANCOMYCIN 1500 MG IVPB SCH (21:00)
[2020-07-10] MEDS: Heparin 5000 UNITS/ML 1 mL VIAL SUBCUT SCH ×3 (06:01→21:57)
[2020-07-10 06:39] LABS: Calcium 8.3 mg/dL (8.6-10.3); EGFR Non-African American 32.2 (>60); Potassium 3.2 mmol/L (3.5-5.0)
[2020-07-10 06:52] LABS: Digoxin 0.7 ng/ml (0.8-2.0)
[2020-07-10] MEDS ORDERED: Potassium Chlor 20 meq TAB.ER PO ONE (07:30)
[2020-07-10] MEDS: SPIRIVA Respimat (tiotropium) 2.5 mcg/inh Inhaler INH SCH (07:49)
[2020-07-10] MEDS: Ammonium Lactate 12% 1 APPLIC TUBE TOPICAL SCH ×2 (10:27→21:57)
[2020-07-10] MEDS: Mometasone 220 MCG MDI INH SCH (17:06)
[2020-07-10] MEDS: cefTRIAXone 1 gm/50 mL NS BAG 1 GM/50 ML BAG IVPB SCH (21:55)
[2020-07-11] MEDS: Heparin 5000 UNITS/ML 1 mL VIAL SUBCUT SCH (05:08)
[2020-07-11 06:45] LABS: BUN/Creatinine Ratio 17.4 (8-20); Calcium 8.3 mg/dL (8.6-10.3); EGFR African American 36.8 (>60); EGFR Non-African American 30.4 (>60); Magnesium 1.3 mg/dL (1.9-2.7); Potassium 3.4 mmol/L (3.5-5.0)
[2020-07-11] MEDS ORDERED: Potassium Chlor 20 meq TAB.ER PO ONE (07:33)
[2020-07-11] MEDS: SPIRIVA Respimat (tiotropium) 2.5 mcg/inh Inhaler INH SCH (08:07)
[2020-07-11] MEDS: Magnesium Sulf 4 GM/100 ML IV 4,000 MG/100 ML BAG IVPB ONE ×2 (08:08→10:02)
[2020-07-11] MEDS ORDERED: Potassium Chlor 20 meq TAB.ER PO SCH (09:00)
[2020-07-11 12:49] VITALS: BP 115/78
[2020-07-11] MEDS: Ammonium Lactate 12% 1 APPLIC TUBE TOPICAL SCH (12:56)
[2020-07-12] MEDS ORDERED: Vancomycin Trough Check NOTE FOLLOW UP ONE (20:30)
== END 2020-07-11 15:15 | disposition home or self-care (01) ==
LOC: ED 16:58 → MEDTELE 16:58
PROVIDERS: ADMIT Student in an Organized Health Care Education/Training Program; ATTEND Internal Medicine

== ENCOUNTER 2020-08-14 11:15 | Inpatient (IN) ==
[2020-08-14 12:35] LABS: INR 1.18 (0.82-1.09)
[2020-08-14 12:39] LABS: Albumin 3.2 g/dL (3.2-5.2); Albumin/Globulin Ratio 0.9 (1-3); BUN/Creatinine Ratio 14.7 (8-20); Calcium 8.7 mg/dL (8.6-10.3); EGFR African American 41.7 (>60); EGFR Non-African American 34.4 (>60); Globulin 3.6 g/dL (2-4); Magnesium 1.5 mg/dL (1.9-2.7); Potassium 3.4 mmol/L (3.5-5.0); Total Bilirubin 1.8 mg/dL (0.2-1.0); Total Protein 6.8 g/dL (6.4-8.9)
[2020-08-14 12:51] LABS: ABS Basophils 0.1 10^3/ul (0-0.2); ABS Eosinophils 0.1 10^3/ul (0-0.6); ABS Lymphocytes 0.8 10^3/ul (1.0-4.8); ABS Monocytes 0.5 10^3/ul (0-0.8); ABS Neutrophils 4.1 10^3/ul (1.5-7.7); Hematocrit 33 % (35-47); Hemoglobin 10.5 g/dL (12.0-16.0); Lymphocyte % 13.8 %; Mean Corpuscular HGB Conc 32 g/dL (31-36); Mean Corpuscular Hemoglobin 31 pg (27-31); Mean Corpuscular Volume 95 fL (80-97); Platelet Count 150 10^3/uL (150-450); Red Blood Count 3.44 10^6 /uL (3.70-4.87); Red Cell Distribution Width 23 % (10-15); White Blood Count 5.5 10^3/uL (3.5-10.8)
[2020-08-14] MEDS ORDERED: Potassium Chlor 20 meq TAB.ER PO ONE (12:59)
[2020-08-14 13:33] LABS: Urine Appearance Cloudy; Urine Bilirubin Negative (Negative); Urine Blood 1+ (Negative); Urine Color Straw; Urine Glucose Negative (Negative); Urine Ketones Negative (Negative); Urine Nitrite Negative (Negative); Urine Protein Negative (Negative); Urine Specific Gravity 1.004 (1.010-1.030); Urine Urobilinogen Negative (Negative)
[2020-08-14 13:37] LABS: Urine Bacteria Absent (Absent); Urine Red Blood Cell Absent (Absent); Urine Squamous Epithelial Cell Present (Absent); Urine White Blood Cell 1+(6-10/hpf) (Absent)
[2020-08-14] MEDS ORDERED: Albuterol HFA INHALER 8 gm MDI INH PRN (15:55)
[2020-08-14] MEDS ORDERED: Magnesium Sulfate 2 gm BAG 2 GM/50 ML BAG IVPB ONE (15:58)
[2020-08-14] MEDS ORDERED: Dextrose 50% Syringe 50 ml 25 GM/50 ML SYRINGE IV PUSH PRN (16:02)
[2020-08-14 16:03] LABS: Indirect Bilirubin 1.3 mg/dL (0.3-1.0)
[2020-08-14] MEDS: Mometasone 220 MCG MDI INH SCH (19:56)
[2020-08-14] MEDS ORDERED: Ammonium Lactate 12% 1 APPLIC TUBE TOPICAL SCH (21:00)
[2020-08-14] MEDS ORDERED: Neomycin/Polymy/Dex OPHTH.OIN 3.5 GM LEFT EYE SCH (21:00)
[2020-08-14] MEDS ORDERED: Fluticasone HFA 110 mcg(NF) MDI INH SCH (21:00)
[2020-08-14] MEDS: Ammonium Lactate 12% 1 APPLIC TUBE TOPICAL SCH (22:46)
[2020-08-14] MEDS: Heparin 5000 UNITS/ML 1 mL VIAL SUBCUT SCH (22:48)
[2020-08-14] MEDS: Neomycin/Polymy/Dex OPHTH.OIN 3.5 GM LEFT EYE SCH (22:48)
[2020-08-15] MEDS: Heparin 5000 UNITS/ML 1 mL VIAL SUBCUT SCH ×3 (05:09→20:55)
[2020-08-15] MEDS: SPIRIVA Respimat (tiotropium) 2.5 mcg/inh Inhaler INH SCH (08:13)
[2020-08-15] MEDS ORDERED: DILTIAZEM HCL 120 MG PO SCH (09:00)
[2020-08-15] MEDS ORDERED: TIOTROPIUM BROMIDE INH SCH (09:00)
[2020-08-15] MEDS ORDERED: MAGNESIUM OXIDE 400 MG PO SCH (09:00)
[2020-08-15] MEDS ORDERED: Cholecalciferol (VIT D3) 1,000 unit TAB PO SCH (09:00)
[2020-08-15] MEDS: Cholecalciferol (VIT D3) 1,000 unit TAB PO SCH (09:20)
[2020-08-15] MEDS: Potassium Chlor 20 meq TAB.ER PO SCH (09:21)
[2020-08-15] MEDS: Neomycin/Polymy/Dex OPHTH.OIN 3.5 GM LEFT EYE SCH ×2 (09:22→20:55)
[2020-08-15] MEDS: Ammonium Lactate 12% 1 APPLIC TUBE TOPICAL SCH ×2 (09:22→20:46)
[2020-08-15 10:14] LABS: ABS Eosinophils 0.1 10^3/ul (0-0.6); ABS Lymphocytes 0.6 10^3/ul (1.0-4.8); ABS Monocytes 0.3 10^3/ul (0-0.8); ABS Neutrophils 2.7 10^3/ul (1.5-7.7); Eosinophil % 3.4 %; Hematocrit 34 % (35-47); Hemoglobin 10.3 g/dL (12.0-16.0); Lymphocyte % 16.3 %; Mean Corpuscular HGB Conc 30 g/dL (31-36); Mean Corpuscular Hemoglobin 30 pg (27-31); Mean Corpuscular Volume 99 fL (80-97); Mean Platelet Volume 8.1 fL (7.4-10.4); Nucleated Red Blood Cells % 0.3; Platelet Count 138 10^3/uL (150-450); Red Blood Count 3.46 10^6 /uL (3.70-4.87); Red Cell Distribution Width 25 % (10-15); White Blood Count 3.7 10^3/uL (3.5-10.8)
[2020-08-15 10:15] LABS: Albumin 2.9 g/dL (3.2-5.2); BUN/Creatinine Ratio 13.8 (8-20); Calcium 8.2 mg/dL (8.6-10.3); EGFR African American 38.7 (>60); Indirect Bilirubin 0.8 mg/dL (0.3-1.0); Magnesium 1.8 mg/dL (1.9-2.7); Potassium 3.6 mmol/L (3.5-5.0); Total Bilirubin 1.2 mg/dL (0.2-1.0); Total Protein 5.9 g/dL (6.4-8.9)
[2020-08-15] MEDS: cefTRIAXone 1 gm/50 mL NS BAG 1 GM/50 ML BAG IVPB SCH (17:21)
[2020-08-15 18:31] LABS: TSH Ultra Thyroid Stim Horm 81.46 mcIU/mL (0.34-5.60)
[2020-08-15] MEDS: Mometasone 220 MCG MDI INH SCH (19:13)
[2020-08-16] MEDS: Heparin 5000 UNITS/ML 1 mL VIAL SUBCUT SCH ×3 (06:31→22:10)
[2020-08-16] MEDS: cefTRIAXone 1 gm/50 mL NS BAG 1 GM/50 ML BAG IVPB SCH (08:58)
[2020-08-16] MEDS: Cholecalciferol (VIT D3) 1,000 unit TAB PO SCH (08:59)
[2020-08-16] MEDS: Potassium Chlor 20 meq TAB.ER PO SCH (09:00)
[2020-08-16] MEDS: Neomycin/Polymy/Dex OPHTH.OIN 3.5 GM LEFT EYE SCH ×2 (09:02→22:14)
[2020-08-16] MEDS: Ammonium Lactate 12% 1 APPLIC TUBE TOPICAL SCH ×2 (11:04→22:08)
[2020-08-16] MEDS: oxyCODONE/Acetamin 5/325 mg TAB PO PRN ×2 (11:13→22:17)
[2020-08-16 11:50] LABS: % Iron Saturation 21 % (15-55); Iron 76 ug/dL (50-212); LDH 357 U/L (140-271); Total Iron Binding Capacity 365 mcg/dL (250-450); Transferrin 261 mg/dL (203-362); Unsaturated Iron Binding < 350 ug/dL
[2020-08-16 12:17] LABS: Ferritin 41.9 ng/mL (11-307)
[2020-08-16 12:22] LABS: Vitamin B12 649 pg/mL (180-914)
[2020-08-16] MEDS: SPIRIVA Respimat (tiotropium) 2.5 mcg/inh Inhaler INH SCH (13:55)
[2020-08-16] MEDS: Meropenem 1 GM PREMIX(*) 1 GM/50 ML BAG IV SCH (18:29)
[2020-08-16] MEDS: Mometasone 220 MCG MDI INH SCH (19:37)
[2020-08-17] MEDS: Meropenem 1 GM PREMIX(*) 1 GM/50 ML BAG IV SCH ×3 (02:33→17:46)
[2020-08-17] MEDS: Heparin 5000 UNITS/ML 1 mL VIAL SUBCUT SCH ×3 (05:54→21:28)
[2020-08-17 06:26] LABS: Corrected Retic Count 1.2 % (0.5-1.5); Hematocrit for Retic CNT 33 % (35-47); Immature Retic Fraction 0.67; RBC Retic Count 3.47 10^6/uL (3.70-4.87)
[2020-08-17] MEDS: SPIRIVA Respimat (tiotropium) 2.5 mcg/inh Inhaler INH SCH (07:25)
[2020-08-17] MEDS: Cholecalciferol (VIT D3) 1,000 unit TAB PO SCH (08:00)
[2020-08-17] MEDS: Potassium Chlor 20 meq TAB.ER PO SCH (08:01)
[2020-08-17] MEDS: oxyCODONE/Acetamin 5/325 mg TAB PO PRN (08:03)
[2020-08-17] MEDS: Ammonium Lactate 12% 1 APPLIC TUBE TOPICAL SCH ×2 (09:03→21:32)
[2020-08-17] MEDS: Neomycin/Polymy/Dex OPHTH.OIN 3.5 GM LEFT EYE SCH ×2 (09:39→21:28)
[2020-08-17] MEDS: Mometasone 220 MCG MDI INH SCH (19:40)
[2020-08-18] MEDS: Meropenem 1 GM PREMIX(*) 1 GM/50 ML BAG IV SCH ×2 (02:36→10:50)
[2020-08-18] MEDS: Heparin 5000 UNITS/ML 1 mL VIAL SUBCUT SCH (06:17)
[2020-08-18] MEDS ORDERED: Enoxaparin 40 MG/0.4 ML SYR SUBCUT SCH (08:00)
[2020-08-18 08:10] VITALS: BP 93/37
[2020-08-18] MEDS: Cholecalciferol (VIT D3) 1,000 unit TAB PO SCH (09:09)
[2020-08-18] MEDS: Potassium Chlor 20 meq TAB.ER PO SCH (09:10)
[2020-08-18] MEDS: Ammonium Lactate 12% 1 APPLIC TUBE TOPICAL SCH (09:12)
[2020-08-18] MEDS: Neomycin/Polymy/Dex OPHTH.OIN 3.5 GM LEFT EYE SCH (09:12)
[2020-08-18 09:18] LABS: Free T4 0.49 ng/dL (0.61-1.12)
[2020-08-18 09:27] LABS: Folate 4.32 ng/mL (>3.99)
== END 2020-08-18 12:30 | DRG 690 ==
LOC: ED 11:15 → MEDTELE 11:15 → ED 18:18 → MEDTELE 08-15 22:49 → MED 08-17 12:05
PROVIDERS: ADMIT Internal Medicine; ATTEND Hospitalist

== ENCOUNTER 2020-08-25 18:36 | Inpatient (IN) ==
[2020-08-25 19:42] LABS: ABS Basophils 0.1 10^3/ul (0-0.2); ABS Eosinophils 0.3 10^3/ul (0-0.6); ABS Lymphocytes 1.1 10^3/ul (1.0-4.8); ABS Monocytes 0.9 10^3/ul (0-0.8); ABS Neutrophils 4.6 10^3/ul (1.5-7.7); Hematocrit 28 % (35-47); Lymphocyte % 15.8 %; Mean Corpuscular HGB Conc 33 g/dL (31-36); Mean Corpuscular Hemoglobin 31 pg (27-31); Mean Corpuscular Volume 96 fL (80-97); Mean Platelet Volume 8.7 fL (7.4-10.4); Nucleated Red Blood Cells % 0.1; Platelet Count 143 10^3/uL (150-450); Red Blood Count 2.89 10^6 /uL (3.70-4.87); Red Cell Distribution Width 22 % (10-15); White Blood Count 6.9 10^3/uL (3.5-10.8)
[2020-08-25 20:04] LABS: ALT 20 U/L (7-52); AST 32 U/L (13-39); Albumin 3.5 g/dL (3.2-5.2); Albumin/Globulin Ratio 0.9 (1-3); Alkaline Phosphatase 72 U/L (34-104); BUN/Creatinine Ratio 29.8 (8-20); Blood Urea Nitrogen 75 mg/dL (6-24); Calcium 8.9 mg/dL (8.6-10.3); Chloride 88 mmol/L (101-111); EGFR African American 22.9 (>60); EGFR Non-African American 18.9 (>60); Glucose 124 mg/dL (70-100); Potassium 3.9 mmol/L (3.5-5.0); Sodium 137 mmol/L (135-145); Total Protein 7.5 g/dL (6.4-8.9)
[2020-08-25 20:06] LABS: Anion Gap 8 mmol/L (2-11); CO2 Carbon Dioxide 41 mmol/L (22-32); Troponin I 0.03 ng/mL (<0.03)
[2020-08-25 20:10] LABS: Ammonia 31 mcmol/L (16-53)
[2020-08-25 20:44] LABS: INR 1.39 (0.82-1.09)
[2020-08-25 21:09] LABS: BNP 762 pg/mL (<=100)
[2020-08-25] MEDS ORDERED: Furosemide 40 mg/4 ml IV VIAL IV SLOW PU ONE (21:12)
[2020-08-25 21:23] LABS: TSH Ultra Thyroid Stim Horm 44.72 mcIU/mL (0.34-5.60)
[2020-08-25 22:54] LABS: Urine Appearance Cloudy; Urine Bilirubin Negative (Negative); Urine Blood Negative (Negative); Urine Color Straw; Urine Glucose Negative (Negative); Urine Ketones Negative (Negative); Urine Nitrite Negative (Negative); Urine Protein Negative (Negative); Urine Specific Gravity 1.008 (1.002-1.030); Urine Urobilinogen Negative (Negative)
[2020-08-25 23:10] LABS: Urine Benzodiazepine Screen None Detected (None Detect); Urine Cannabinoids Screen None Detected (None Detect); Urine Opiates Screen None Detected (None Detect)
[2020-08-25] MEDS ORDERED: Dextrose 50% Syringe 50 ml 25 GM/50 ML SYRINGE IV PUSH PRN (23:39)
[2020-08-26 02:04] LABS: Troponin I 0.04 ng/mL (<0.03)
[2020-08-26] MEDS ORDERED: NS 0.9% 500 ml BAG 500 ML IV ONE (02:31)
[2020-08-26] MEDS ORDERED: Albuterol HFA INHALER 8 gm MDI INH PRN (04:56)
[2020-08-26] MEDS: Heparin 5000 UNITS/ML 1 mL VIAL SUBCUT SCH ×3 (05:28→21:16)
[2020-08-26 06:09] LABS: ABS Basophils 0.1 10^3/ul (0-0.2); ABS Eosinophils 0.3 10^3/ul (0-0.6); ABS Lymphocytes 0.7 10^3/ul (1.0-4.8); ABS Monocytes 0.5 10^3/ul (0-0.8); ABS Neutrophils 4.9 10^3/ul (1.5-7.7); Eosinophil % 4.2 %; Hematocrit 26 % (35-47); Hemoglobin 8.6 g/dL (12.0-16.0); Lymphocyte % 11.2 %; Mean Corpuscular HGB Conc 33 g/dL (31-36); Mean Corpuscular Hemoglobin 31 pg (27-31); Mean Corpuscular Volume 96 fL (80-97); Mean Platelet Volume 8.7 fL (7.4-10.4); Platelet Count 150 10^3/uL (150-450); Red Blood Count 2.75 10^6 /uL (3.70-4.87); Red Cell Distribution Width 22 % (10-15); White Blood Count 6.5 10^3/uL (3.5-10.8)
[2020-08-26 06:30] LABS: BUN/Creatinine Ratio 32.4 (8-20); Calcium 8.9 mg/dL (8.6-10.3); EGFR African American 26.5 (>60); EGFR Non-African American 21.9 (>60); Potassium 3.8 mmol/L (3.5-5.0)
[2020-08-26 06:40] LABS: Activated Partial Thrombo Time 28.2 seconds (26.0-38.0); INR 1.36 (0.82-1.09)
[2020-08-26 06:43] LABS: Troponin I 0.04 ng/mL (<0.03)
[2020-08-26] MEDS: SPIRIVA Respimat (tiotropium) 2.5 mcg/inh Inhaler INH SCH (07:58)
[2020-08-26] MEDS ORDERED: Metoprolol Tartrate 5 mg VIAL 5 ml VIAL (1 mg/ml) IV ONE (09:48)
[2020-08-26] MEDS: Levothyroxine 100 MCG/5 ML VIAL IV SCH (10:56)
[2020-08-26] MEDS: Mometasone 220 MCG MDI INH SCH (19:28)
[2020-08-27 00:09] LABS: Urine Creatinine Concentration 36.51 mg/dL
[2020-08-27] MEDS: Heparin 5000 UNITS/ML 1 mL VIAL SUBCUT SCH ×3 (06:52→22:15)
[2020-08-27] MEDS: Levothyroxine 100 MCG/5 ML VIAL IV SCH (06:52)
[2020-08-27] MEDS: SPIRIVA Respimat (tiotropium) 2.5 mcg/inh Inhaler INH SCH ×2 (06:57→11:38)
[2020-08-27 09:30] LABS: BUN/Creatinine Ratio 34.7 (8-20); EGFR African American 34.6 (>60); EGFR Non-African American 28.6 (>60); Potassium 3.6 mmol/L (3.5-5.0)
[2020-08-27 16:51] LABS: ABS Basophils 0.1 10^3/ul (0-0.2); ABS Eosinophils 0.1 10^3/ul (0-0.6); ABS Lymphocytes 0.9 10^3/ul (1.0-4.8); ABS Monocytes 0.9 10^3/ul (0-0.8); ABS Neutrophils 5.6 10^3/ul (1.5-7.7); Eosinophil % 1.6 %; Hematocrit 28 % (35-47); Hemoglobin 9.1 g/dL (12.0-16.0); Lymphocyte % 11.9 %; Mean Corpuscular HGB Conc 33 g/dL (31-36); Mean Corpuscular Hemoglobin 32 pg (27-31); Mean Corpuscular Volume 97 fL (80-97); Mean Platelet Volume 8.9 fL (7.4-10.4); Nucleated Red Blood Cells % 0.1; Platelet Count 130 10^3/uL (150-450); Red Blood Count 2.89 10^6 /uL (3.70-4.87); Red Cell Distribution Width 21 % (10-15); White Blood Count 7.6 10^3/uL (3.5-10.8)
[2020-08-27] MEDS: Mometasone 220 MCG MDI INH SCH (18:53)
[2020-08-28 06:14] LABS: ABS Basophils 0.1 10^3/ul (0-0.2); ABS Eosinophils 0.2 10^3/ul (0-0.6); ABS Lymphocytes 0.8 10^3/ul (1.0-4.8); ABS Monocytes 0.9 10^3/ul (0-0.8); ABS Neutrophils 5.6 10^3/ul (1.5-7.7); Eosinophil % 2.6 %; Hematocrit 28 % (35-47); Hemoglobin 9.1 g/dL (12.0-16.0); Lymphocyte % 10.3 %; Mean Corpuscular HGB Conc 33 g/dL (31-36); Mean Corpuscular Hemoglobin 32 pg (27-31); Mean Corpuscular Volume 96 fL (80-97); Mean Platelet Volume 8.8 fL (7.4-10.4); Nucleated Red Blood Cells % 0.1; Platelet Count 131 10^3/uL (150-450); Red Blood Count 2.89 10^6 /uL (3.70-4.87); Red Cell Distribution Width 21 % (10-15); White Blood Count 7.6 10^3/uL (3.5-10.8)
[2020-08-28] MEDS: Heparin 5000 UNITS/ML 1 mL VIAL SUBCUT SCH ×3 (06:22→20:51)
[2020-08-28] MEDS: Levothyroxine 100 MCG/5 ML VIAL IV SCH (06:36)
[2020-08-28] MEDS: SPIRIVA Respimat (tiotropium) 2.5 mcg/inh Inhaler INH SCH (07:24)
[2020-08-28] MEDS: Mometasone 220 MCG MDI INH SCH ×2 (09:34→19:54)
[2020-08-28 10:30] LABS: Urine Creatinine Concentration 95.32 mg/dL
[2020-08-29] MEDS: Heparin 5000 UNITS/ML 1 mL VIAL SUBCUT SCH ×3 (05:19→20:38)
[2020-08-29] MEDS: SPIRIVA Respimat (tiotropium) 2.5 mcg/inh Inhaler INH SCH (07:29)
[2020-08-29] MEDS: Mometasone 220 MCG MDI INH SCH ×2 (19:36→21:06)
[2020-08-30] MEDS: Heparin 5000 UNITS/ML 1 mL VIAL SUBCUT SCH ×3 (05:32→21:21)
[2020-08-30] MEDS: SPIRIVA Respimat (tiotropium) 2.5 mcg/inh Inhaler INH SCH (08:21)
[2020-08-30] MEDS: Mometasone 220 MCG MDI INH SCH (20:25)
[2020-08-31] MEDS: Heparin 5000 UNITS/ML 1 mL VIAL SUBCUT SCH ×3 (05:16→21:29)
[2020-08-31] MEDS: SPIRIVA Respimat (tiotropium) 2.5 mcg/inh Inhaler INH SCH (08:11)
[2020-08-31] MEDS: Mometasone 220 MCG MDI INH SCH (20:16)
[2020-09-01] MEDS: Heparin 5000 UNITS/ML 1 mL VIAL SUBCUT SCH ×3 (06:01→20:57)
[2020-09-01] MEDS: SPIRIVA Respimat (tiotropium) 2.5 mcg/inh Inhaler INH SCH (07:15)
[2020-09-01] MEDS: Mometasone 220 MCG MDI INH SCH (20:17)
[2020-09-02] MEDS: Heparin 5000 UNITS/ML 1 mL VIAL SUBCUT SCH ×3 (05:06→22:02)
[2020-09-02] MEDS: SPIRIVA Respimat (tiotropium) 2.5 mcg/inh Inhaler INH SCH (08:30)
[2020-09-02] MEDS: Mometasone 220 MCG MDI INH SCH (19:47)
[2020-09-03] MEDS: Heparin 5000 UNITS/ML 1 mL VIAL SUBCUT SCH ×2 (05:12→12:19)
[2020-09-03] MEDS: SPIRIVA Respimat (tiotropium) 2.5 mcg/inh Inhaler INH SCH (09:45)
[2020-09-03 11:36] VITALS: BP 114/87
== END 2020-09-03 16:30 ==
LOC: ED 18:36 → MEDTELE 08-26 00:34 → ICU 08-26 11:41 → MEDTELE 08-27 07:32
PROVIDERS: ADMIT Internal Medicine; ATTEND Internal Medicine

== ENCOUNTER 2020-12-18 10:38 | Observation (INO) ==
[2020-12-18 12:02] LABS: ABS Basophils 0.1 10^3/ul (0-0.2); ABS Eosinophils 0.2 10^3/ul (0-0.6); ABS Lymphocytes 0.8 10^3/ul (1.0-4.8); ABS Monocytes 0.6 10^3/ul (0-0.8); ABS Neutrophils 5.2 10^3/ul (1.5-7.7); Eosinophil % 2.6 %; Hematocrit 34 % (35-47); Hemoglobin 10.6 g/dL (12.0-16.0); Lymphocyte % 11.5 %; Mean Corpuscular HGB Conc 32 g/dL (31-36); Mean Corpuscular Hemoglobin 30 pg (27-31); Mean Corpuscular Volume 95 fL (80-97); Mean Platelet Volume 8.2 fL (7.4-10.4); Nucleated Red Blood Cells % 0.1; Platelet Count 142 10^3/uL (150-450); Red Blood Count 3.54 10^6 /uL (3.70-4.87); Red Cell Distribution Width 17 % (10-15); White Blood Count 6.9 10^3/uL (3.5-10.8)
[2020-12-18 12:23] LABS: Albumin 2.9 g/dL (3.2-5.2); Albumin/Globulin Ratio 0.9 (1-3); Calcium 8.4 mg/dL (8.6-10.3); EGFR African American 58.2 (>60); EGFR Non-African American 48.1 (>60); Globulin 3.4 g/dL (2-4); Potassium 3.6 mmol/L (3.5-5.0); Total Bilirubin 1.3 mg/dL (0.2-1.0); Total Protein 6.3 g/dL (6.4-8.9)
[2020-12-18] MEDS ORDERED: Dextrose 50% Syringe 50 ml 25 GM/50 ML SYRINGE IV PUSH PRN (13:25)
[2020-12-18] MEDS ORDERED: oxyCODONE/Acetamin 5/325 mg TAB PO PRN (13:26)
[2020-12-18] MEDS ORDERED: Albuterol HFA INHALER 8 gm MDI INH PRN (13:26)
[2020-12-18] MEDS ORDERED: Nystatin TOP POWDER 15 GM BTL TOPICAL PRN (13:26)
[2020-12-18] MEDS ORDERED: Furosemide 40 mg/4 ml IV VIAL IV ONE (13:29)
[2020-12-18] MEDS: oxyCODONE/Acetamin 5/325 mg TAB PO PRN (19:55)
[2020-12-18] MEDS: Mometasone 220 MCG MDI INH SCH ×2 (19:56→20:10)
[2020-12-18] MEDS: Enoxaparin 40 MG/0.4 ML SYR SUBCUT SCH (21:46)
[2020-12-18] MEDS: Ammonium Lactate 12% 1 APPLIC TUBE TOPICAL SCH (21:48)
[2020-12-19 06:13] LABS: ABS Basophils 0.1 10^3/ul (0-0.2); ABS Eosinophils 0.2 10^3/ul (0-0.6); ABS Monocytes 0.7 10^3/ul (0-0.8); ABS Neutrophils 5.4 10^3/ul (1.5-7.7); Eosinophil % 2.7 %; Hematocrit 33 % (35-47); Hemoglobin 10.4 g/dL (12.0-16.0); Mean Corpuscular HGB Conc 31 g/dL (31-36); Mean Corpuscular Hemoglobin 30 pg (27-31); Mean Corpuscular Volume 95 fL (80-97); Mean Platelet Volume 8.2 fL (7.4-10.4); Nucleated Red Blood Cells % 0.2; Platelet Count 140 10^3/uL (150-450); Red Blood Count 3.47 10^6 /uL (3.70-4.87); Red Cell Distribution Width 17 % (10-15); White Blood Count 7.4 10^3/uL (3.5-10.8)
[2020-12-19 06:35] LABS: Calcium 8.2 mg/dL (8.6-10.3); EGFR African American 54.3 (>60); EGFR Non-African American 44.8 (>60); Potassium 3.5 mmol/L (3.5-5.0)
[2020-12-19] MEDS: SPIRIVA Respimat (tiotropium) 2.5 mcg/inh Inhaler INH SCH (08:36)
[2020-12-19] MEDS: Cholecalciferol (VIT D3) 1,000 unit TAB PO SCH (09:55)
[2020-12-19] MEDS: Ammonium Lactate 12% 1 APPLIC TUBE TOPICAL SCH ×2 (09:56→20:45)
[2020-12-19] MEDS: oxyCODONE/Acetamin 5/325 mg TAB PO PRN ×2 (09:56→13:59)
[2020-12-19] MEDS: Mometasone 220 MCG MDI INH SCH (19:53)
[2020-12-19] MEDS: Enoxaparin 40 MG/0.4 ML SYR SUBCUT SCH (20:45)
[2020-12-20] MEDS: SPIRIVA Respimat (tiotropium) 2.5 mcg/inh Inhaler INH SCH (07:35)
[2020-12-20] MEDS: Cholecalciferol (VIT D3) 1,000 unit TAB PO SCH (08:35)
[2020-12-20] MEDS: Ammonium Lactate 12% 1 APPLIC TUBE TOPICAL SCH ×2 (08:36→20:52)
[2020-12-20] MEDS: Enoxaparin 40 MG/0.4 ML SYR SUBCUT SCH (20:52)
[2020-12-21] MEDS: Mometasone 220 MCG MDI INH SCH ×2 (03:55→19:57)
[2020-12-21] MEDS: SPIRIVA Respimat (tiotropium) 2.5 mcg/inh Inhaler INH SCH (08:26)
[2020-12-21] MEDS: Ammonium Lactate 12% 1 APPLIC TUBE TOPICAL SCH ×2 (08:28→20:20)
[2020-12-21] MEDS: Cholecalciferol (VIT D3) 1,000 unit TAB PO SCH (08:28)
[2020-12-21] MEDS ORDERED: Ondansetron ODT 4 mg TAB 4 MG TAB SL PRN (09:36)
[2020-12-21 12:13] LABS: ABS Basophils 0.1 10^3/ul (0-0.2); ABS Eosinophils 0.1 10^3/ul (0-0.6); ABS Monocytes 0.9 10^3/ul (0-0.8); ABS Neutrophils 4.8 10^3/ul (1.5-7.7); Eosinophil % 1.5 %; Hematocrit 38 % (35-47); Hemoglobin 11.4 g/dL (12.0-16.0); Lymphocyte % 14.2 %; Mean Corpuscular HGB Conc 30 g/dL (31-36); Mean Corpuscular Hemoglobin 30 pg (27-31); Mean Corpuscular Volume 102 fL (80-97); Mean Platelet Volume 8.5 fL (7.4-10.4); Nucleated Red Blood Cells % 0.2; Platelet Count 151 10^3/uL (150-450); Red Blood Count 3.75 10^6 /uL (3.70-4.87); Red Cell Distribution Width 18 % (10-15); White Blood Count 6.9 10^3/uL (3.5-10.8)
[2020-12-21 12:40] LABS: Potassium 4.5 mmol/L (3.5-5.0)
[2020-12-21 12:44] LABS: EGFR African American 56.4 (>60); EGFR Non-African American 46.6 (>60)
[2020-12-21] MEDS: oxyCODONE/Acetamin 5/325 mg TAB PO PRN (20:19)
[2020-12-21] MEDS: Enoxaparin 40 MG/0.4 ML SYR SUBCUT SCH (20:20)
[2020-12-22] MEDS: SPIRIVA Respimat (tiotropium) 2.5 mcg/inh Inhaler INH SCH (07:15)
[2020-12-22] MEDS: Ammonium Lactate 12% 1 APPLIC TUBE TOPICAL SCH ×2 (08:30→21:09)
[2020-12-22] MEDS: Cholecalciferol (VIT D3) 1,000 unit TAB PO SCH (08:30)
[2020-12-22] MEDS: Mometasone 220 MCG MDI INH SCH (20:45)
[2020-12-22] MEDS: oxyCODONE/Acetamin 5/325 mg TAB PO PRN (21:08)
[2020-12-22] MEDS: Enoxaparin 40 MG/0.4 ML SYR SUBCUT SCH (21:08)
[2020-12-23] MEDS: oxyCODONE/Acetamin 5/325 mg TAB PO PRN (08:29)
[2020-12-23] MEDS: Cholecalciferol (VIT D3) 1,000 unit TAB PO SCH (08:30)
[2020-12-23] MEDS: Ammonium Lactate 12% 1 APPLIC TUBE TOPICAL SCH ×2 (08:31→21:41)
[2020-12-23] MEDS: SPIRIVA Respimat (tiotropium) 2.5 mcg/inh Inhaler INH SCH (09:21)
[2020-12-23] MEDS: Mometasone 220 MCG MDI INH SCH (21:18)
[2020-12-23] MEDS: Enoxaparin 40 MG/0.4 ML SYR SUBCUT SCH (21:39)
[2020-12-24 08:03] VITALS: BP 123/81
[2020-12-24] MEDS: SPIRIVA Respimat (tiotropium) 2.5 mcg/inh Inhaler INH SCH (08:16)
[2020-12-24] MEDS: Cholecalciferol (VIT D3) 1,000 unit TAB PO SCH (08:27)
[2020-12-24] MEDS: Ammonium Lactate 12% 1 APPLIC TUBE TOPICAL SCH (13:08)
== END 2020-12-24 13:15 ==
LOC: ED 10:38 → MED 10:38 → MEDTELE 12-22 17:19
PROVIDERS: ADMIT Hospitalist; ATTEND Internal Medicine

== ENCOUNTER 2021-03-03 12:53 | Inpatient (IN) ==
[2021-03-03] MEDS ORDERED: Lorazepam PYXIS KEY PRN (13:19)
[2021-03-03] MEDS ORDERED: LORazepam 2 mg VIAL 1 ml IM ONE (13:19)
[2021-03-03] MEDS ORDERED: LORazepam 2 mg VIAL 1 ml ONE (13:20)
[2021-03-03 13:52] LABS: PCO2 Arterial 66 mmHg (35-45)
[2021-03-03 13:59] LABS: Hematocrit 44 % (35-47); Hemoglobin 13.7 g/dL (12.0-16.0); Mean Corpuscular HGB Conc 31 g/dL (31-36); Mean Corpuscular Hemoglobin 30 pg (27-31); Mean Corpuscular Volume 96 fL (80-97); Red Cell Distribution Width 19 % (10-15); White Blood Count 24.3 10^3/uL (3.5-10.8)
[2021-03-03] MEDS ORDERED: Cefepime 1 GM in Dextrose 1 GM/50 ML BAG IV ONE (14:06)
[2021-03-03 14:07] LABS: PO2 Arterial Temp Correct <38 mmHg (80-100)
[2021-03-03 14:08] LABS: ALT 131 U/L (7-52); Albumin 3.2 g/dL (3.2-5.2); Albumin/Globulin Ratio 0.7 (1-3); Alkaline Phosphatase 191 U/L (35-149); Blood Urea Nitrogen 42 mg/dL (6-24); CO2 Carbon Dioxide 17 mmol/L (22-32); Calcium 8.9 mg/dL (8.6-10.3); Chloride 101 mmol/L (101-111); Globulin 4.4 g/dL (2-4); Glucose 58 mg/dL (70-100); Sodium 134 mmol/L (135-145); Total Protein 7.6 g/dL (6.4-8.9); Troponin I 0.04 ng/mL (<0.03)
[2021-03-03] MEDS ORDERED: Dextrose 50% Syringe 50 ml 25 GM/50 ML SYRINGE ONE (14:10)
[2021-03-03] MEDS ORDERED: Dextrose 50% Syringe 50 ml 25 GM/50 ML SYRINGE IV PUSH ONE (14:14)
[2021-03-03] MEDS ORDERED: Rocuronium 50 mg VIAL 10 mg/ml 5 ml VIAL (50 mg) ONE (14:18)
[2021-03-03] MEDS ORDERED: Succinylcholine 200 mg VIAL 20 mg/ml 10 ml VIAL (200 mg) ONE (14:18)
[2021-03-03] MEDS ORDERED: Rocuronium 50 mg VIAL 10 mg/ml 5 ml VIAL (50 mg) IV ONE (14:22)
[2021-03-03] MEDS ORDERED: Propofol 10 mg/ml 100 ML BTL 100 ML IV ONE (14:22)
[2021-03-03] MEDS ORDERED: Etomidate 20 mg/10 ml 2 MG/ML 10 ml VIAL IV ONE (14:22)
[2021-03-03] MEDS ORDERED: Etomidate 40 mg/20 ml (2 MG/ML) 20 ml VIAL (40 mg) ONE (14:30)
[2021-03-03 14:32] LABS: ABS Basophils 0.1 10^3/ul (0-0.2); ABS Lymphocytes 0.8 10^3/ul (1.0-4.8); ABS Monocytes 1.2 10^3/ul (0-0.8); ABS Neutrophils 22.3 10^3/ul (1.5-7.7); Anion Gap 16 mmol/L (2-11); Lymphocyte % 3.1 %; Mean Platelet Volume 9.4 fL (7.4-10.4); Nucleated Red Blood Cells % 0.1; Platelet Count 119 10^3/uL (150-450)
[2021-03-03] MEDS ORDERED: Propofol 10 mg/ml 100 ML BTL 100 ML ONE (14:46)
[2021-03-03] MEDS ORDERED: Norepinephrine 16MCG/ML IVPRE 4,000 MCG/250 ML BAG IV ONE (14:46)
[2021-03-03] MEDS: Norepinephrine 16MCG/ML IVPRE 4,000 MCG/250 ML BAG IV SCH (15:04)
[2021-03-03 15:32] LABS: Urine Appearance Turbid; Urine Bilirubin Negative (Negative); Urine Blood 3+ (Negative); Urine Color Amber; Urine Glucose Negative (Negative); Urine Ketones Negative (Negative); Urine Nitrite Negative (Negative); Urine Protein 2+(100 mg/dL) (Negative); Urine Specific Gravity 1.017 (1.002-1.030); Urine Urobilinogen Negative (Negative)
[2021-03-03 15:48] LABS: Urine Bacteria 3+ (Absent); Urine Red Blood Cell 3+(>10/hpf) (Absent); Urine Squamous Epithelial Cell Present (Absent); Urine White Blood Cell 3+(>20/hpf) (Absent); Urine Yeast Present (Absent)
[2021-03-03 15:58] LABS: Potassium Redraw 5.4 mmol/L (3.5-5.0)
[2021-03-03 16:59] LABS: Rapid COVID-19 Molecular Undetected (Undetected)
[2021-03-03] MEDS ORDERED: Piperacillin/Tazobac ADVAN 3.375 GM in NS 0.9% 100 ml BAG 100 ML IV ONE (17:03)
[2021-03-03] MEDS ORDERED: Artificial Tear OPHTH.OINT 3.5 GM BOTH EYES PRN (17:04)
[2021-03-03] MEDS ORDERED: SODIUM ZIRCONIUM CYCLOSILICATE 5 GM PACKET PO ONE (17:08)
[2021-03-03] MEDS ORDERED: Lactated Ringers 1000 ml BAG 1,000 ML IV SCH (18:00)
[2021-03-03] MEDS ORDERED: Zosyn per Pharmacy NOTE FOLLOW UP SCH (18:00)
[2021-03-03 18:12] LABS: Alcohol, S < 13 mg/dL (<13)
[2021-03-03 18:14] LABS: C Reactive Protein 41.82 mg/L (<8.01)
[2021-03-03 19:23] LABS: INR 1.8 (0.86-1.15)
[2021-03-03] MEDS: Chlorhexidine MOUTHWASH 0.12% 15 ML UDC TOPICAL SCH (19:38)
[2021-03-03 20:13] LABS: Digoxin 1.6 ng/ml (0.8-2.0)
[2021-03-03 20:14] LABS: Venous Bicarbonate HCO3 24.2 mmol/L (24-28)
[2021-03-03 20:26] LABS: TSH Ultra Thyroid Stim Horm 14.48 mcIU/mL (0.34-5.60)
[2021-03-03 20:37] LABS: Anion Gap 9 mmol/L (2-11); Blood Urea Nitrogen 43 mg/dL (6-24); CO2 Carbon Dioxide 24 mmol/L (22-32); Calcium 8.9 mg/dL (8.6-10.3); Chloride 102 mmol/L (101-111); Glucose 105 mg/dL (70-100); Potassium 4.6 mmol/L (3.5-5.0); Sodium 135 mmol/L (135-145)
[2021-03-03 20:43] LABS: Troponin I 0.04 ng/mL (<0.03)
[2021-03-04] MEDS ORDERED: NS 0.9% 100 ml BAG 100 ML ONE (00:26)
[2021-03-04] MEDS: Chlorhexidine MOUTHWASH 0.12% 15 ML UDC TOPICAL SCH ×7 (00:31→22:13)
[2021-03-04] MEDS: ZOSYN 3.375 GM Q8H per EXTENDED INFUSION IV SCH ×3 (00:31→15:17)
[2021-03-04] MEDS: Heparin 5000 UNITS/ML 1 mL VIAL SUBCUT SCH ×4 (00:32→22:13)
[2021-03-04] MEDS: Norepinephrine 16MCG/ML IVPRE 4,000 MCG/250 ML BAG IV SCH ×6 (01:28→22:14)
[2021-03-04] MEDS: Nystatin TOP POWDER 15 GM BTL TOPICAL SCH ×4 (01:56→19:52)
[2021-03-04] MEDS ORDERED: Dexmedetomidine 1,000 MCG in NS 0.9% 250 ml 240 ML IV SCH ×2 (02:00→12:15)
[2021-03-04 03:30] LABS: ABS Lymphocytes 0.2 10^3/ul (1.0-4.8); ABS Monocytes 0.6 10^3/ul (0-0.8); ABS Neutrophils 11.7 10^3/ul (1.5-7.7); ABS Nucleated RBC 0.1 10^3/ul; Eosinophil % 0.1 %; Hematocrit 44 % (35-47); Hemoglobin 14.1 g/dL (12.0-16.0); Mean Corpuscular HGB Conc 32 g/dL (31-36); Mean Corpuscular Hemoglobin 29 pg (27-31); Mean Corpuscular Volume 93 fL (80-97); Mean Platelet Volume 8.3 fL (7.4-10.4); Nucleated Red Blood Cells % 0.4; Platelet Count 132 10^3/uL (150-450); Red Blood Count 4.77 10^6 /uL (3.70-4.87); Red Cell Distribution Width 19 % (10-15); White Blood Count 12.6 10^3/uL (3.5-10.8)
[2021-03-04 03:44] LABS: Albumin 2.5 g/dL (3.2-5.2); Albumin/Globulin Ratio 0.7 (1-3); Calcium 8.2 mg/dL (8.6-10.3); Globulin 3.5 g/dL (2-4); Magnesium 1.8 mg/dL (1.9-2.7); Phosphorus 2.9 mg/dL (2.5-5.0); Potassium 4.2 mmol/L (3.5-5.0); Total Bilirubin 2.1 mg/dL (0.2-1.0)
[2021-03-04] MEDS ORDERED: Magnesium Sulfate 2 gm BAG 2 GM/50 ML BAG IVPB ONE (04:30)
[2021-03-04] MEDS ORDERED: Lactated Ringers 1000 ml BAG 1,000 ML IV SCH ×2 (08:00→08:42)
[2021-03-04] MEDS: Pantoprazole VIAL 40 MG VIAL IV SCH (09:04)
[2021-03-04] MEDS: Hydrocortisone INJ 100 MG/2ML 2 ML VIAL IV SCH ×2 (09:04→16:10)
[2021-03-04] MEDS ORDERED: Perflutren Lipid Microsphere 3 ML VIAL ONE (12:44)
[2021-03-04] MEDS: Vasopressin 100 UNITS in D5W 250 ml BAG 245 ML IV SCH (15:00)
[2021-03-04 16:39] LABS: Potassium 4.9 mmol/L (3.5-5.0)
[2021-03-04 17:14] LABS: Free T4 0.75 ng/dL (0.61-1.12)
[2021-03-04] MEDS: fentaNYL 100 mcg/2 ml 50 MCG/ML VIAL IV SLOW PU PRN (23:59)
[2021-03-05] MEDS: ZOSYN 3.375 GM Q8H per EXTENDED INFUSION IV SCH ×4 (00:32→23:12)
[2021-03-05] MEDS: Chlorhexidine MOUTHWASH 0.12% 15 ML UDC TOPICAL SCH ×6 (01:06→20:41)
[2021-03-05] MEDS: Hydrocortisone INJ 100 MG/2ML 2 ML VIAL IV SCH ×3 (01:06→16:15)
[2021-03-05] MEDS: Norepinephrine 16MCG/ML IVPRE 4,000 MCG/250 ML BAG IV SCH ×2 (01:23→11:55)
[2021-03-05 03:32] LABS: Hematocrit 46 % (35-47); Hemoglobin 14.7 g/dL (12.0-16.0); Mean Corpuscular HGB Conc 32 g/dL (31-36); Mean Corpuscular Hemoglobin 30 pg (27-31); Mean Corpuscular Volume 93 fL (80-97); Mean Platelet Volume 9.3 fL (7.4-10.4); Platelet Count 138 10^3/uL (150-450); Red Blood Count 4.98 10^6 /uL (3.70-4.87); Red Cell Distribution Width 20 % (10-15); White Blood Count 23.3 10^3/uL (3.5-10.8)
[2021-03-05 03:41] LABS: Albumin 2.4 g/dL (3.2-5.2); Calcium 7.8 mg/dL (8.6-10.3); Magnesium 2.2 mg/dL (1.9-2.7)
[2021-03-05 03:47] LABS: Albumin/Globulin Ratio 0.7 (1-3); Globulin 3.5 g/dL (2-4); Total Protein 5.9 g/dL (6.4-8.9)
[2021-03-05 03:48] LABS: Potassium 5.2 mmol/L (3.5-5.0)
[2021-03-05 03:54] LABS: ABS Lymphocytes 0.6 10^3/ul (1.0-4.8); ABS Monocytes 1.6 10^3/ul (0-0.8); ABS Nucleated RBC 0.1 10^3/ul; Lymphocyte % 2.7 %; Nucleated Red Blood Cells % 0.4
[2021-03-05 04:36] LABS: Burr Cells 3+
[2021-03-05 04:38] LABS: Acanthocytes 1+; Polychromasia 1+
[2021-03-05] MEDS: Heparin 5000 UNITS/ML 1 mL VIAL SUBCUT SCH ×3 (05:34→20:41)
[2021-03-05] MEDS: SODIUM ZIRCONIUM CYCLOSILICATE 5 GM PACKET PO SCH (09:47)
[2021-03-05] MEDS: Pantoprazole VIAL 40 MG VIAL IV SCH (09:48)
[2021-03-05] MEDS: Nystatin TOP POWDER 15 GM BTL TOPICAL SCH ×3 (09:48→20:41)
[2021-03-05] MEDS ORDERED: Lorazepam PYXIS KEY PRN (17:16)
[2021-03-05] MEDS: fentaNYL 100 mcg/2 ml 50 MCG/ML VIAL IV SLOW PU PRN ×3 (17:32→23:12)
[2021-03-05] MEDS: Dexmedetomidine 1,000 MCG in NS 0.9% 250 ml 240 ML IV SCH (21:12)
[2021-03-05] MEDS ORDERED: Norepinephrine *QUAD STRENGTH* 16 mg/250 mL NS per protocol IV SCH (22:00)
[2021-03-05] MEDS ORDERED: Norepinephrine 16MCG/ML IVPRE 4,000 MCG/250 ML BAG IV SCH (22:00)
[2021-03-06] MEDS: Hydrocortisone INJ 100 MG/2ML 2 ML VIAL IV SCH ×3 (00:39→16:05)
[2021-03-06] MEDS: Chlorhexidine MOUTHWASH 0.12% 15 ML UDC TOPICAL SCH ×6 (01:03→20:18)
[2021-03-06] MEDS: fentaNYL 100 mcg/2 ml 50 MCG/ML VIAL IV SLOW PU PRN ×4 (01:12→19:27)
[2021-03-06] MEDS: LORazepam 2 mg VIAL 1 ml IV PUSH PRN ×3 (01:35→22:23)
[2021-03-06] MEDS: Dexmedetomidine 1,000 MCG in NS 0.9% 250 ml 240 ML IV SCH ×5 (02:04→21:03)
[2021-03-06] MEDS: Vasopressin 100 UNITS in D5W 250 ml BAG 245 ML IV SCH (02:05)
[2021-03-06] MEDS ORDERED: Albuterol/Ipratropium NEB.SOL (2.5/0.5 MG) 3 ML NEB.SOLN ONE (03:46)
[2021-03-06] MEDS: Albuterol/Ipratropium NEB.SOL (2.5/0.5 MG) 3 ML NEB.SOLN INH PRN (03:48)
[2021-03-06 04:32] LABS: Hematocrit 44 % (35-47); Hemoglobin 14.1 g/dL (12.0-16.0); Mean Corpuscular HGB Conc 32 g/dL (31-36); Mean Corpuscular Hemoglobin 30 pg (27-31); Mean Corpuscular Volume 93 fL (80-97); Mean Platelet Volume 9.7 fL (7.4-10.4); Platelet Count 121 10^3/uL (150-450); Red Blood Count 4.77 10^6 /uL (3.70-4.87); Red Cell Distribution Width 20 % (10-15); White Blood Count 26.4 10^3/uL (3.5-10.8)
[2021-03-06 04:47] LABS: Calcium 7.3 mg/dL (8.6-10.3); Magnesium 2.2 mg/dL (1.9-2.7); Phosphorus 5.1 mg/dL (2.5-5.0)
[2021-03-06 04:50] LABS: Potassium 5.6 mmol/L (3.5-5.0)
[2021-03-06] MEDS ORDERED: Sodium Polystyrene ORAL.SUSP 15 GM/60 ML BTL G TUBE ONE (04:56)
[2021-03-06 05:02] LABS: Burr Cells 3+; Polychromasia 1+
[2021-03-06 05:03] LABS: ABS Basophils 0.1 10^3/ul (0-0.2); ABS Lymphocytes 0.8 10^3/ul (1.0-4.8); ABS Monocytes 1.4 10^3/ul (0-0.8); ABS Neutrophils 23.2 10^3/ul (1.5-7.7); ABS Nucleated RBC 0.1 10^3/ul; Eosinophil % 3.9 %; Lymphocyte % 2.9 %; Nucleated Red Blood Cells % 0.4
[2021-03-06] MEDS: Heparin 5000 UNITS/ML 1 mL VIAL SUBCUT SCH ×3 (05:37→20:18)
[2021-03-06] MEDS: ZOSYN 3.375 GM Q8H per EXTENDED INFUSION IV SCH (07:17)
[2021-03-06] MEDS: Pantoprazole VIAL 40 MG VIAL IV SCH (07:17)
[2021-03-06] MEDS: SODIUM ZIRCONIUM CYCLOSILICATE 5 GM PACKET PO SCH (07:27)
[2021-03-06] MEDS: Nystatin TOP POWDER 15 GM BTL TOPICAL SCH ×3 (07:34→20:18)
[2021-03-06] MEDS ORDERED: Vasopressin 100 UNITS in D5W 250 ml BAG 245 ML IV SCH (07:57)
[2021-03-06] MEDS ORDERED: fentaNYL 100 mcg/2 ml 50 MCG/ML VIAL ONE (12:16)
[2021-03-06] MEDS ORDERED: Heparin *DIALYSIS* ONLY 1,000 UNITS/ML VIAL DIALYSIS ONE (12:55)
[2021-03-06 14:00] LABS: Potassium 5.7 mmol/L (3.5-5.0)
[2021-03-06] MEDS ORDERED: Heparin 1,000 UNIT/ML 10 ml (10,000 UNITS) CATHLAB/DIALYSIS DIALYSIS ONE (14:00)
[2021-03-06] MEDS: Heparin 1,000 UNIT/ML 10 ml (10,000 UNITS) CATHLAB/DIALYSIS DIALYSIS PRN ×3 (14:30→16:45)
[2021-03-06] MEDS: ZOSYN 3.375 GM Q12H per EXTENDED INFUSION IV SCH (19:54)
[2021-03-06 21:39] LABS: Hepatitis B Surface Antigen Nonreactive (Nonreactive)
[2021-03-06 21:56] LABS: Hepatitis B Surface Ab Not Immune (Immune)
[2021-03-07] MEDS: fentaNYL 100 mcg/2 ml 50 MCG/ML VIAL IV SLOW PU PRN ×3 (00:40→23:40)
[2021-03-07] MEDS: Hydrocortisone INJ 100 MG/2ML 2 ML VIAL IV SCH ×3 (00:40→18:03)
[2021-03-07] MEDS: Chlorhexidine MOUTHWASH 0.12% 15 ML UDC TOPICAL SCH ×6 (00:40→20:38)
[2021-03-07] MEDS: Dexmedetomidine 1,000 MCG in NS 0.9% 250 ml 240 ML IV SCH ×2 (02:32→07:49)
[2021-03-07 04:43] LABS: Albumin 2.2 g/dL (3.2-5.2); Albumin/Globulin Ratio 0.6 (1-3); Calcium 7.3 mg/dL (8.6-10.3); Globulin 3.4 g/dL (2-4); Phosphorus 4.5 mg/dL (2.5-5.0); Potassium 4.9 mmol/L (3.5-5.0); Total Bilirubin 2.1 mg/dL (0.2-1.0); Total Protein 5.6 g/dL (6.4-8.9)
[2021-03-07 04:51] LABS: ABS Basophils 0.1 10^3/ul (0-0.2); ABS Eosinophils 0.3 10^3/ul (0-0.6); ABS Lymphocytes 0.3 10^3/ul (1.0-4.8); ABS Monocytes 0.8 10^3/ul (0-0.8); ABS Neutrophils 26.2 10^3/ul (1.5-7.7); ABS Nucleated RBC 0.2 10^3/ul; Eosinophil % 1.1 %; Hematocrit 44 % (35-47); Mean Corpuscular HGB Conc 32 g/dL (31-36); Mean Corpuscular Hemoglobin 30 pg (27-31); Mean Corpuscular Volume 94 fL (80-97); Mean Platelet Volume 8.9 fL (7.4-10.4); Nucleated Red Blood Cells % 0.6; Platelet Count 67 10^3/uL (150-450); Red Cell Distribution Width 20 % (10-15); White Blood Count 27.6 10^3/uL (3.5-10.8)
[2021-03-07] MEDS ORDERED: Norepinephrine IV 16 MG in NS 0.9% 250 ml 234 ML IV SCH (05:00)
[2021-03-07] MEDS ORDERED: Acetaminophen IV 1 GM/100ML 100 ML IV ONE (06:18)
[2021-03-07] MEDS: Heparin 5000 UNITS/ML 1 mL VIAL SUBCUT SCH (06:35)
[2021-03-07] MEDS: ZOSYN 3.375 GM Q12H per EXTENDED INFUSION IV SCH (08:07)
[2021-03-07] MEDS: Pantoprazole VIAL 40 MG VIAL IV SCH (08:07)
[2021-03-07] MEDS: Nystatin TOP POWDER 15 GM BTL TOPICAL SCH ×3 (08:44→20:39)
[2021-03-07] MEDS: SODIUM ZIRCONIUM CYCLOSILICATE 5 GM PACKET PO SCH (10:45)
[2021-03-07] MEDS: Midazolam 50 MG VIAL IV DRIP 50 ML IV SCH (11:27)
[2021-03-07] MEDS ORDERED: Acetaminophen IV 1 GM/100ML 100 ML IV PRN (11:28)
[2021-03-07] MEDS ORDERED: Vancomycin 2,000 MG in NS 0.9% 500 ml BAG 500 ML IVPB ONE (12:00)
[2021-03-07] MEDS ORDERED: Vancomycin - DIALYSIS DOSING 1 EA NOTE FOLLOW UP SCH (12:00)
[2021-03-07] MEDS: cefTRIAXone 1 gm/50 mL NS BAG 1 GM/50 ML BAG IVPB SCH (12:15)
[2021-03-07] MEDS: Norepinephrine 16MCG/ML IVPRE 4,000 MCG/250 ML BAG IV SCH (23:09)
[2021-03-08] MEDS ORDERED: Digoxin IV 0.5 MG/2 ML AMP (0.25 MG/ML) IV SLOW PU ONE (01:07)
[2021-03-08] MEDS ORDERED: NS 0.9% 250 ml 250 ML IV ONE (01:07)
[2021-03-08] MEDS: Hydrocortisone INJ 100 MG/2ML 2 ML VIAL IV SCH ×3 (01:42→20:00)
[2021-03-08] MEDS: Chlorhexidine MOUTHWASH 0.12% 15 ML UDC TOPICAL SCH ×6 (01:42→20:00)
[2021-03-08] MEDS: Norepinephrine 16MCG/ML IVPRE 4,000 MCG/250 ML BAG IV SCH ×2 (03:02→06:18)
[2021-03-08 05:29] LABS: ABS Basophils 0.2 10^3/ul (0-0.2); ABS Eosinophils 0.4 10^3/ul (0-0.6); ABS Lymphocytes 0.2 10^3/ul (1.0-4.8); ABS Monocytes 0.6 10^3/ul (0-0.8); ABS Neutrophils 21.1 10^3/ul (1.5-7.7); ABS Nucleated RBC 0.1 10^3/ul; Eosinophil % 1.6 %; Hematocrit 42 % (35-47); Hemoglobin 13.5 g/dL (12.0-16.0); Lymphocyte % 0.9 %; Mean Corpuscular HGB Conc 32 g/dL (31-36); Mean Corpuscular Hemoglobin 29 pg (27-31); Mean Corpuscular Volume 91 fL (80-97); Mean Platelet Volume 9.5 fL (7.4-10.4); Nucleated Red Blood Cells % 0.6; Platelet Count 46 10^3/uL (150-450); Red Blood Count 4.61 10^6 /uL (3.70-4.87); Red Cell Distribution Width 19 % (10-15); White Blood Count 22.5 10^3/uL (3.5-10.8)
[2021-03-08 05:43] LABS: Albumin/Globulin Ratio 0.6 (1-3); Calcium 7.1 mg/dL (8.6-10.3); Globulin 3.4 g/dL (2-4); Magnesium 2.1 mg/dL (1.9-2.7); Phosphorus 4.7 mg/dL (2.5-5.0); Total Protein 5.4 g/dL (6.4-8.9)
[2021-03-08] MEDS ORDERED: Furosemide 100 mg/10 ml IV VIAL IV ONE (08:37)
[2021-03-08] MEDS ORDERED: Furosemide 100 mg/10 ml IV VIAL ONE (08:46)
[2021-03-08] MEDS: Pantoprazole VIAL 40 MG VIAL IV SCH (08:50)
[2021-03-08] MEDS: SODIUM ZIRCONIUM CYCLOSILICATE 5 GM PACKET PO SCH (08:51)
[2021-03-08] MEDS: Nystatin TOP POWDER 15 GM BTL TOPICAL SCH ×3 (08:52→19:43)
[2021-03-08] MEDS: PHENYLEPHRINE DRIP IVPREMIX 50 MG/250 ML BAG IV SCH ×2 (09:32→20:22)
[2021-03-08] MEDS ORDERED: Albumin Human 25% 25 GM/100 ML BTL IV ONE (09:44)
[2021-03-08] MEDS: cefTRIAXone 1 gm/50 mL NS BAG 1 GM/50 ML BAG IVPB SCH (11:30)
[2021-03-09] MEDS: Midazolam 50 MG VIAL IV DRIP 50 ML IV SCH (00:11)
[2021-03-09] MEDS: Chlorhexidine MOUTHWASH 0.12% 15 ML UDC TOPICAL SCH ×6 (00:19→21:04)
[2021-03-09] MEDS: fentaNYL 100 mcg/2 ml 50 MCG/ML VIAL IV SLOW PU PRN ×2 (02:21→14:17)
[2021-03-09] MEDS: LORazepam 2 mg VIAL 1 ml IV PUSH PRN ×2 (03:31→17:02)
[2021-03-09 04:54] LABS: Hematocrit 38 % (35-47); Hemoglobin 12.2 g/dL (12.0-16.0); Mean Corpuscular HGB Conc 32 g/dL (31-36); Mean Corpuscular Hemoglobin 30 pg (27-31); Mean Corpuscular Volume 93 fL (80-97); Mean Platelet Volume 10.4 fL (7.4-10.4); Platelet Count 50 10^3/uL (150-450); Red Blood Count 4.12 10^6 /uL (3.70-4.87); Red Cell Distribution Width 20 % (10-15); White Blood Count 19.9 10^3/uL (3.5-10.8)
[2021-03-09 05:13] LABS: Magnesium 2.1 mg/dL (1.9-2.7); Phosphorus 4.5 mg/dL (2.5-5.0); Vancomycin Random 12.7 mcg/mL
[2021-03-09 05:22] LABS: Potassium 5.1 mmol/L (3.5-5.0)
[2021-03-09] MEDS: Hydrocortisone INJ 100 MG/2ML 2 ML VIAL IV SCH ×2 (07:59→21:04)
[2021-03-09] MEDS: Pantoprazole VIAL 40 MG VIAL IV SCH (07:59)
[2021-03-09] MEDS: Nystatin TOP POWDER 15 GM BTL TOPICAL SCH ×3 (08:00→21:04)
[2021-03-09] MEDS: SODIUM ZIRCONIUM CYCLOSILICATE 5 GM PACKET PO SCH (08:00)
[2021-03-09] MEDS: Silver Sulfadiazine 1% 400gm JAR TOPICAL SCH ×2 (09:38→21:04)
[2021-03-09 09:55] LABS: Activated Partial Thrombo Time 36.6 seconds (26.0-38.0); Fibrinogen 357.9 mg/dL (110.8-404.3); INR 1.26 (0.86-1.15)
[2021-03-09] MEDS: PHENYLEPHRINE DRIP IVPREMIX 50 MG/250 ML BAG IV SCH (10:07)
[2021-03-09] MEDS: cefTRIAXone 1 gm/50 mL NS BAG 1 GM/50 ML BAG IVPB SCH (10:34)
[2021-03-09] MEDS ORDERED: fentaNYL 100 mcg/2 ml 50 MCG/ML VIAL ONE (12:12)
[2021-03-09] MEDS: Albuterol/Ipratropium NEB.SOL (2.5/0.5 MG) 3 ML NEB.SOLN INH PRN (14:41)
[2021-03-09 17:12] LABS: HIT ELISA < 0.050 OD (<0.400); Heparin PF4 Antibody Interp Negative (Negative)
[2021-03-09] MEDS ORDERED: Vancomycin 1000 MG in NS 0.9% 250 ML IVPB ONE (18:00)
[2021-03-10] MEDS: PHENYLEPHRINE DRIP IVPREMIX 50 MG/250 ML BAG IV SCH ×3 (00:51→21:29)
[2021-03-10] MEDS: Chlorhexidine MOUTHWASH 0.12% 15 ML UDC TOPICAL SCH ×6 (02:20→21:17)
[2021-03-10] MEDS: fentaNYL 100 mcg/2 ml 50 MCG/ML VIAL IV SLOW PU PRN ×2 (03:21→13:27)
[2021-03-10] MEDS ORDERED: Vancomycin Random Level NOTE FOLLOW UP ONE (06:00)
[2021-03-10 07:01] LABS: Vancomycin Random 19.4 mcg/mL
[2021-03-10 07:02] LABS: Calcium 7.2 mg/dL (8.6-10.3); Phosphorus 3.7 mg/dL (2.5-5.0); Potassium 4.7 mmol/L (3.5-5.0)
[2021-03-10 07:13] LABS: Hematocrit 37 % (35-47); Hemoglobin 11.7 g/dL (12.0-16.0); Mean Corpuscular HGB Conc 32 g/dL (31-36); Mean Corpuscular Hemoglobin 30 pg (27-31); Mean Corpuscular Volume 92 fL (80-97); Mean Platelet Volume 11.2 fL (7.4-10.4); Platelet Count 50 10^3/uL (150-450); Red Blood Count 3.97 10^6 /uL (3.70-4.87); Red Cell Distribution Width 19 % (10-15)
[2021-03-10] MEDS: Hydrocortisone INJ 100 MG/2ML 2 ML VIAL IV SCH ×2 (08:04→21:17)
[2021-03-10] MEDS: Pantoprazole VIAL 40 MG VIAL IV SCH (08:04)
[2021-03-10] MEDS: SODIUM ZIRCONIUM CYCLOSILICATE 5 GM PACKET PO SCH (08:04)
[2021-03-10] MEDS: Silver Sulfadiazine 1% 400gm JAR TOPICAL SCH ×2 (08:05→21:18)
[2021-03-10] MEDS: Nystatin TOP POWDER 15 GM BTL TOPICAL SCH ×3 (08:05→21:17)
[2021-03-10] MEDS: cefTRIAXone 1 gm/50 mL NS BAG 1 GM/50 ML BAG IVPB SCH (12:24)
[2021-03-10] MEDS ORDERED: cefTRIAXone 2 GM ADDV.VIAL 2 GM in NS 0.9% 100 ml BAG 100 ML IV SCH (14:00)
[2021-03-10] MEDS ORDERED: Metoclopramide 5 MG/ML VIAL (10 mg) IV SLOW PU PRN (15:48)
[2021-03-10] MEDS ORDERED: Vancomycin 500 MG in NS 0.9% 250 ML IVPB ONE (16:00)
[2021-03-10] MEDS: LORazepam 2 mg VIAL 1 ml IV PUSH PRN (17:39)
[2021-03-10] MEDS: Metoclopramide 5 MG/ML VIAL (10 mg) IV SLOW PU SCH (18:23)
[2021-03-11] MEDS: Metoclopramide 5 MG/ML VIAL (10 mg) IV SLOW PU SCH ×5 (00:18→23:36)
[2021-03-11] MEDS: Chlorhexidine MOUTHWASH 0.12% 15 ML UDC TOPICAL SCH ×6 (02:15→21:24)
[2021-03-11] MEDS ORDERED: Vancomycin Random Level NOTE FOLLOW UP ONE (06:00)
[2021-03-11 06:11] LABS: Hematocrit 38 % (35-47); Hemoglobin 11.8 g/dL (12.0-16.0); Mean Corpuscular HGB Conc 32 g/dL (31-36); Mean Corpuscular Hemoglobin 29 pg (27-31); Mean Corpuscular Volume 92 fL (80-97); Mean Platelet Volume 10.2 fL (7.4-10.4); Platelet Count 89 10^3/uL (150-450); Red Blood Count 4.09 10^6 /uL (3.70-4.87); Red Cell Distribution Width 19 % (10-15); White Blood Count 20.7 10^3/uL (3.5-10.8)
[2021-03-11 06:20] LABS: Calcium 7.5 mg/dL (8.6-10.3); Magnesium 1.9 mg/dL (1.9-2.7); Potassium 4.3 mmol/L (3.5-5.0)
[2021-03-11] MEDS: PHENYLEPHRINE DRIP IVPREMIX 50 MG/250 ML BAG IV SCH (07:23)
[2021-03-11] MEDS: fentaNYL 100 mcg/2 ml 50 MCG/ML VIAL IV SLOW PU PRN ×2 (08:14→15:24)
[2021-03-11] MEDS: Hydrocortisone INJ 100 MG/2ML 2 ML VIAL IV SCH ×2 (08:15→21:24)
[2021-03-11] MEDS: Pantoprazole VIAL 40 MG VIAL IV SCH (08:15)
[2021-03-11] MEDS: Heparin 5000 UNITS/ML 1 mL VIAL SUBCUT SCH ×2 (08:15→21:25)
[2021-03-11] MEDS: Levothyroxine 100 MCG/5 ML VIAL IV SCH (08:24)
[2021-03-11] MEDS: Silver Sulfadiazine 1% 400gm JAR TOPICAL SCH ×2 (09:10→21:25)
[2021-03-11] MEDS: Nystatin TOP POWDER 15 GM BTL TOPICAL SCH ×3 (09:10→21:26)
[2021-03-11] MEDS: cefTRIAXone 2 GM ADDV.VIAL 2 GM in NS 0.9% 100 ml BAG 100 ML IV SCH (12:20)
[2021-03-12] MEDS: Chlorhexidine MOUTHWASH 0.12% 15 ML UDC TOPICAL SCH ×6 (02:16→22:02)
[2021-03-12 05:20] LABS: Calcium 7.6 mg/dL (8.6-10.3); Phosphorus 3.1 mg/dL (2.5-5.0); Potassium 3.7 mmol/L (3.5-5.0)
[2021-03-12 05:24] LABS: Hematocrit 36 % (35-47); Hemoglobin 11.4 g/dL (12.0-16.0); Mean Corpuscular HGB Conc 32 g/dL (31-36); Mean Corpuscular Hemoglobin 29 pg (27-31); Mean Corpuscular Volume 93 fL (80-97); Mean Platelet Volume 9.8 fL (7.4-10.4); Platelet Count 91 10^3/uL (150-450); Red Blood Count 3.87 10^6 /uL (3.70-4.87); Red Cell Distribution Width 19 % (10-15); White Blood Count 17.7 10^3/uL (3.5-10.8)
[2021-03-12] MEDS: Metoclopramide 5 MG/ML VIAL (10 mg) IV SLOW PU SCH ×2 (05:43→11:17)
[2021-03-12] MEDS: Levothyroxine 100 MCG/5 ML VIAL IV SCH (07:54)
[2021-03-12] MEDS: Pantoprazole VIAL 40 MG VIAL IV SCH (07:54)
[2021-03-12] MEDS: Nystatin TOP POWDER 15 GM BTL TOPICAL SCH ×2 (07:55→13:01)
[2021-03-12] MEDS: Heparin 5000 UNITS/ML 1 mL VIAL SUBCUT SCH (07:55)
[2021-03-12] MEDS: Silver Sulfadiazine 1% 400gm JAR TOPICAL SCH ×2 (07:56→22:02)
[2021-03-12 08:13] LABS: ABS Basophils 0.2 10^3/ul (0-0.2); ABS Lymphocytes 0.3 10^3/ul (1.0-4.8); ABS Monocytes 0.5 10^3/ul (0-0.8); ABS Neutrophils 16.7 10^3/ul (1.5-7.7); ABS Nucleated RBC 0.1 10^3/ul; Lymphocyte % 1.7 %; Nucleated Red Blood Cells % 0.4
[2021-03-12] MEDS ORDERED: Hydrocortisone INJ 100 MG/2ML 2 ML VIAL IV SCH (09:00)
[2021-03-12] MEDS: cefTRIAXone 2 GM ADDV.VIAL 2 GM in NS 0.9% 100 ml BAG 100 ML IV SCH (11:14)
[2021-03-12 17:20] LABS: Serotonin <30 ng/mL (<=230)
[2021-03-13] MEDS: Chlorhexidine MOUTHWASH 0.12% 15 ML UDC TOPICAL SCH ×6 (03:53→22:35)
[2021-03-13] MEDS: Silver Sulfadiazine 1% 400gm JAR TOPICAL SCH ×2 (07:29→22:34)
[2021-03-13] MEDS: fentaNYL 100 mcg/2 ml 50 MCG/ML VIAL IV SLOW PU PRN ×3 (07:29→23:05)
[2021-03-13] MEDS ORDERED: Lorazepam PYXIS KEY PRN (08:44)
[2021-03-14] MEDS: Chlorhexidine MOUTHWASH 0.12% 15 ML UDC TOPICAL SCH ×2 (03:03→04:59)
[2021-03-14 08:25] VITALS: BP 104/57
[2021-03-14] MEDS ORDERED: LORazepam 2 mg VIAL 1 ml IV PUSH ONE (08:30)
[2021-03-14] MEDS ORDERED: Morphine PCA 5 MG/ML Titrate per Protocol PCA SCH (09:00)
[2021-03-14] MEDS ORDERED: LORAZEPAM IV SCH (09:00)
[2021-03-14] MEDS ORDERED: DEXTROSE IV SCH (09:00)
== END 2021-03-14 14:41 | disposition expired | DRG 870 ==
LOC: ED 12:53 → SUATTDRO 16:59 → ICU 16:59
PROVIDERS: ADMIT Internal Medicine; ATTEND Surgery Surgical Critical Care